=== PATIENT | male | born 1965 | race Caucasian/White ===

== ENCOUNTER 2017-07-07 18:34 | Inpatient (IN) | payer OTHER ==
[2017-07-07 18:42] VITALS: BMI 24.9
--- NOTE | 2017-07-07 19:59 | PDOC ---
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 Patient's sister states he is a mute but is able to understand when speaking to him in [place]yrgy[place]. Through his niece, patient denied headache, dizziness, lightheadedness, visual disturbance, neck pains, back pains, chest pain, shortness of breath, abdominal pains, flank pains, urinary symptoms. Patient's family states patient is a mute from 2 years ago when he had a anterior cervical discectomy fusion and plating done in the [place]. Timing/Duration: 1 week <Neva Gaxiola - Last Filed: 07/07/17 21:04> <Sha Daigle - Last Filed: 07/09/17 07:58> - General Chief Complaint: Revisit, Lab Variance Stated Complaint: PCP SENT Time Seen by Provider: 07/07/17 19:34 Past History - Past Medical History CVA: Yes (X 2 WITH RESIDUAL WEAKNESS AND APHASIA.) Diabetes: Yes Dialysis: Yes (--) HTN: Yes Hypercholesterolemia: Yes Kidney Stones: Yes - Suicide/Smoking/Psychosocial Hx Smoking History: Never smoked Hx Alcohol Use: No Drug/Substance Use Hx: No Substance Use Type: None <Neva Gaxiola - Last Filed: 07/07/17 21:04> <Sha Daigel - Last Filed: 07/09/17 07:58> - Past Medical History Allergies/Adverse Reactions: Allergies Allergy/AdvReac Type Severity Reaction Status Date / Time No Known Allergies Allergy Verified 07/07/17 18:36 Home Medications: Ambulatory Orders Amlodipine Besylate 10 PO TID 07/08/17 Atorvastatin Ca [Lipitor] 80 mg PO DAILY 07/08/17 Labetalol HCl [Normodyne -] 200 mg PO BID 07/08/17 Multivitamins 1 PO DAILY 07/08/17 Phenytoin Sodium Extended 100 mg PO TID 07/08/17 Sertraline HCl [Zoloft -] 50 mg PO DAILY 07/08/17 Review of Systems - Review of Systems Able to Perform ROS?: Yes Comments:: 07/07/17 21:05 CONSTITUTIONAL: Absent: fever, chills, diaphoresis, generalized weakness, malaise, loss of appetite HEENT: Absent: rhinorrhea, nasal congestion, throat pain, throat swelling, difficulty swallowing, mouth swelling, ear pain, eye pain, visual Changes CARDIOVASCULAR: Absent: chest pain, loss of consciousness, palpitations, irregular heart rate, peripheral edema RESPIRATORY: Absent: cough, shortness of breath, dyspnea with exertion, orthopnea, wheezing, stridor, hemoptysis GASTROINTESTINAL: Absent: abdominal pain, abdominal distension, nausea, vomiting, diarrhea, constipation, melena, hematochezia GENITOURINARY: Absent: dysuria, frequency, urgency, hesitancy, hematuria, flank pain, genital pain MUSCULOSKELETAL: Absent: myalgia, arthralgia, joint swelling SKIN: Absent: rash, itching, pallor HEMATOLOGIC/IMMUNOLOGIC: Absent: easy bleeding, easy bruising, lymphadenopathy, frequent infections ENDOCRINE: Absent: unexplained weight gain, unexplained weight loss, heat intolerance, cold intolerance NEUROLOGIC: Absent: headache, focal weakness or paresthesias, dizziness, unsteady gait, seizure, mental status changes, bladder or bowel incontinence PSYCHIATRIC: Absent: anxiety, depression, suicidal or homicidal ideation, hallucinations. Is the patient limited [place]ian proficient: No <Neva Gaxiola - Last Filed: 07/07/17 21:04> *Physical Exam - Vital Signs Last Vital Signs Temp Pulse Resp BP Pulse Ox 97.9 F 70 18 109/51 99 07/07/17 18:35 07/07/17 18:35 07/07/17 18:35 07/07/17 18:35 07/07/17 18:35 - Physical Exam Comments: 07/07/17 21:06 GENERAL: Well developed, well nourished. Awake and alert. No acute distress. HEENT: Normocephalic, atraumatic. PERRLA, EOMI. No conjunctival pallor. Sclera are non- icteric. Moist mucous membranes. Oropharynx is clear. NECK: Supple. Full ROM. No JVD. Carotid pulses 2+ and symmetric, without bruits. No thyromegaly. No lymphadenopathy. CARDIOVASCULAR: Regular rate and rhythm. No murmurs, rubs, or gallops. Distal pulses are 2+ and symmetric. PULMONARY: No evidence of respiratory distress. Lungs clear to auscultation bilaterally. No wheezing, rales or rhonchi. ABDOMINAL: Soft. Non-tender. Non-distended. No rebound or guarding. No organomegaly. Normoactive bowel sounds. MUSCULOSKELETAL Normal range of motion at all joints. No bony deformities or tenderness. No CVA tenderness. EXTREMITIES: No cyanosis. No clubbing. No edema. No calf tenderness. SKIN: Warm and dry. Normal capillary refill. No rashes. No jaundice. NEUROLOGICAL: Alert, awake, appropriate. Cranial nerves 2-12 intact. No deficits to light touch and temperature in face, upper extremities and lower extremities. No motor deficits in the in face, upper extremities and lower extremities. Normoreflexic in the upper and lower extremities. Normal speech. Toes are down- going bilaterally. Gait is normal without ataxia. PSYCHIATRIC: Cooperative. Good eye contact. Appropriate mood and affect. <Neva Gaxiola - Last Filed: 07/07/17 21:04> - Vital Signs Last Vital Signs Temp Pulse Resp BP Pulse Ox 97.4 F L 72 18 122/65 99 07/09/17 06:00 07/09/17 06:00 07/09/17 06:00 07/09/17 06:00 07/08/17 21:00 <Sha Daigle - Last Filed: 07/09/17 07:58> ED Treatment Course - LABORATORY CBC & Chemistry Diagram: 07/07/17 20:30 07/07/17 20:30 <eNva Gaixola - Last Filed: 07/07/17 21:04> - LABORATORY CBC & Chemistry Diagram: 07/07/17 20:30 07/07/17 20:30 - ADDITIONAL ORDERS Additional order review: 07/07/17 20:30 RBC 3.80 L MCV 96.8 H MCHC 32.6 RDW 17.8 H MPV 8.7 Neutrophils % 50.9 Lymphocytes % 32.2 Monocytes % 13.3 H Eosinophils % 2.4 Basophils % 1.2 <Sha Daigle - Last Filed: 07/09/17 07:58> Medical Decision Making - Medical Decision Making 07/09/17 07:58 The patient was seen and evaluated in conjunction with SARITHA Gaxiola under my direct supervision, ancillary studies were reviewed. I agree with the plan as outlined by SARITHA Gaxiola. <Sha Daigle - Last Filed: 07/09/17 07:58> *DC/Admit/Observation/Transfer - Discharge Dispostion Admit: Yes <Neva Gaxiola - Last Filed: 07/07/17 21:04> <Sha Daigle - Last Filed: 07/09/17 07:58> Diagnosis at time of Disposition: Weakness generalized, Anorexia Altered mental status, unspecified Qualifiers: Altered mental status type: unspecified Qualified Code(s): R41.82 - Altered mental status, unspecified - Discharge Dispostion Condition at time of disposition: Guarded - Referrals
[2017-07-07 20:42] LABS: BASOPHIL 1.2 % (0-2.0); EOSINOPHIL 2.4 % (0-4.5); MCH 31.6 pg (25.7-33.7); MCHC 32.6 g/dl (32.0-35.9); MEAN CELL VOLUME 96.8 fl (80-96); MEAN PLT VOLUME 8.7 fl (7.5-11.1); NEUTROPHILS 50.9 % (42.8-82.8); PLATELET COUNT 149 K/MM3 (134-434); RDW 17.8 % (11.9-15.9)
[2017-07-07 21:04] LABS: ALBUMIN 3.2 g/dl (3.4-5.0); ALK PHOS 159 U/L (45-117); ANION GAP 6 (8-16); BILIRUBIN,TOTAL 0.1 mg/dL (0.2-1.0); CO2 31 mmol/L (21-32); CREATININE 4.2 mg/dL (0.7-1.3); GLUCOSE,RANDOM 206 mg/dL (74-106); SGPT/ALT 20 U/L (12-78); TOT PROT 7.1 g/dl (6.4-8.2)
[2017-07-07 21:10] LABS: SGOT/AST 28 U/L (15-37)
[2017-07-08] MEDS ORDERED: ACETAMINOPHEN 325 MG TABLET (FP) PO PRN (00:17)
--- NOTE | 2017-07-08 09:56 | HP ---
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 Patient's sister states he is a mute but is able to understand when speaking to him in Turkish. Through his niece, patient denied headache, dizziness, lightheadedness, visual disturbance, neck pains, back pains, chest pain, shortness of breath, abdominal pains, flank pains, urinary symptoms. Patient's family states patient is a mute from 2 years ago when he had a anterior cervical discectomy fusion and plating done in the [place]. History Source: Patient, Medical Record Limitations to Obtaining History: Physical Impairment - Past Medical History RN WELLNESS: Yes: CVA, Other (APHASIA) - Smoking History Smoking history: Never smoked - Alcohol/Substance Use Hx Alcohol Use: No Home Medications - Allergies Allergies/Adverse Reactions: Allergies Allergy/AdvReac Type Severity Reaction Status Date / Time No Known Allergies Allergy Verified 07/07/17 18:36 - Home Medications Home Medications: Ambulatory Orders Amlodipine Besylate 10 PO TID 07/08/17 Atorvastatin Ca [Lipitor] 80 mg PO DAILY 07/08/17 Labetalol HCl [Normodyne -] 200 mg PO BID 07/08/17 Multivitamins 1 PO DAILY 07/08/17 Phenytoin Sodium Extended 100 mg PO TID 07/08/17 Sertraline HCl [Zoloft -] 50 mg PO DAILY 07/08/17 Review of Systems - Review of Systems Constitutional: reports: Lethargy, Loss of Appetite, Weakness Eyes: reports: No Symptoms HENT: reports: No Symptoms, Other Neck: reports: No Symptoms Cardiovascular: reports: No Symptoms Respiratory: reports: No Symptoms Gastrointestinal: reports: No Symptoms Genitourinary: reports: Other Musculoskeletal: reports: Muscle Pain, Muscle Weakness Integumentary: reports: No Symptoms Neurological: reports: Change in Speech, Confusion, Parasthesia, Pre-Existing Deficit (APHASIA) Hematology/Lymphatic: reports: No Symptoms Psychiatric: reports: No Symptoms Physical Examination Vital Signs: Vital Signs Temperature 98.2 F 07/08/17 06:00 Pulse Rate 78 07/08/17 06:00 Respiratory Rate 18 07/08/17 06:00 Blood Pressure 114/74 07/08/17 06:00 O2 Sat by Pulse Oximetry (%) 99 07/07/17 23:00 Constitutional: Yes: Moderate Distress Eyes: Yes: WNL HENT: Yes: Other Neck: Yes: WNL Cardiovascular: Yes: WNL Respiratory: Yes: WNL Gastrointestinal: Yes: WNL Renal/: Yes: Incontinence Musculoskeletal: Yes: Muscle Weakness Extremities: Yes: Other Edema: No Peripheral Pulses WNL: Yes Integumentary: Yes: WNL Wound/Incision: Yes: Clean/Dry Neurological: Yes: Aphasia, Loss of Sensation, Paresthesia, Pre-Existing Deficit , Weakness ...Motor Strength: LUE, LLE, RUE, RLE Psychiatric: Yes: Other Imaging - Results Chest X-ray: Report Reviewed Problem List - Problems (1) Altered mental status, unspecified Code(s): R41.82 - ALTERED MENTAL STATUS, UNSPECIFIED Qualifiers: Altered mental status type: unspecified Qualified Code(s): R41.82 - Altered mental status, unspecified; R41.82 - Altered mental status, unspecified (2) Anorexia Code(s): R63.0 - ANOREXIA (3) Weakness generalized Code(s): R53.1 - WEAKNESS (4) ESRD (end stage renal disease) on dialysis Code(s): N18.6 - END STAGE RENAL DISEASE Z99.2 - DEPENDENCE ON RENAL DIALYSIS Assessment/Plan ESRD ON HD RENAL EVAL PT EVAL MONITOR CALORIES TOLERATING MEALS TODAY SNF MONDAY
--- NOTE | 2017-07-08 14:36 | CON.NEP ---
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, Other (APHASIA) - Alcohol/Substance Use Hx Alcohol Use: No - Smoking History Smoking history: Never smoked Home Medications - Allergies Allergies/Adverse Reactions: Allergies Allergy/AdvReac Type Severity Reaction Status Date / Time No Known Allergies Allergy Verified 07/07/17 18:36 - Home Medications Home Medications: Ambulatory Orders Amlodipine Besylate 10 PO TID 07/08/17 Atorvastatin Ca [Lipitor] 80 mg PO DAILY 07/08/17 Labetalol HCl [Normodyne -] 200 mg PO BID 07/08/17 Multivitamins 1 PO DAILY 07/08/17 Phenytoin Sodium Extended 100 mg PO TID 07/08/17 Sertraline HCl [Zoloft -] 50 mg PO DAILY 07/08/17 Review of Systems - Review of Systems Constitutional: reports: No Symptoms Eyes: reports: No Symptoms HENT: reports: No Symptoms Neck: reports: No Symptoms Cardiovascular: reports: No Symptoms Respiratory: reports: No Symptoms Gastrointestinal: reports: No Symptoms Genitourinary: reports: No Symptoms Breasts: reports: No Symptoms Reported Musculoskeletal: reports: No Symptoms Integumentary: reports: No Symptoms Neurological: reports: Change in Speech, Incoordination, Seizure, Syncope Endocrine: reports: No Symptoms Hematology/Lymphatic: reports: No Symptoms Nephrology Consult - Height Height: 5 ft 4 in - Weight Weight: 145 lb - BMI Body Mass Index (BMI): 24.9 - Lab Results Anion Gap: Anion Gap Anion Gap 6 (8-16) L 07/07/17 20:30 - Physical Examination Vital Signs: Vital Signs Temperature 98.5 F 07/08/17 09:00 Pulse Rate 94 H 07/08/17 09:00 Respiratory Rate 18 07/08/17 09:00 Blood Pressure 133/88 07/08/17 09:00 O2 Sat by Pulse Oximetry (%) 99 07/08/17 09:00 Constitutional: Yes: Well Nourished, No Distress, Calm Eyes: Yes: WNL, Conjunctiva Clear, EOM Intact HENT: Yes: WNL, Atraumatic, Normocephalic Neck: Yes: WNL, Supple, Trachea Midline Cardiovascular: Yes: WNL, Regular Rate and Rhythm Respiratory: Yes: WNL, Regular, CTA Bilaterally Gastrointestinal: Yes: WNL, Normal Bowel Sounds Renal/: Yes: WNL Access for Hemodialysis: AV Fistula Musculoskeletal: Yes: WNL, Muscle Weakness Extremities: Yes: WNL Edema: No Peripheral Pulses WNL: Yes Integumentary: Yes: WNL Neurological: Yes: Alert, Oriented, Dysarthria, Facial Droop, Pre-Existing Deficit, Unsteady Gait, Weakness Psychiatric: Yes: WNL, Alert, Oriented Assessment/Plan ESRD on HD tiw pseudo-Hypocalcemia corrected ca 8.6 clinically euvolemic- S/P CVA- severe dysarthria no dysphagia AMS ?resolved question of Weight loss- not verified by dialysis records (his weight has been stable at 58 Kg since 05/05/17 when he started dialysis) no diarrhea/vomiting/or anorexia Plan- maintenance HD on monday No acute indication for hemodialysis
--- NOTE | 2017-07-08 19:06 | EKG ---
Test Reason : Blood Pressure : / mmHG Vent. Rate : 061 BPM Atrial Rate : 061 BPM P-R Int : 124 ms QRS Dur : 080 ms QT Int : 456 ms P-R-T Axes : 052 017 048 degrees QTc Int : 459 ms NORMAL SINUS RHYTHM NORMAL ECG NO PREVIOUS ECGS AVAILABLE REPEAT EKG IF CLINICALLY INDICATED Confirmed by ABEBE MONTANO MD ([id number]) on 07/08/2017 7:06:08 PM Referred By: Confirmed By:ABEBE MONTANO MD
[2017-07-09 08:36] LABS: MCH 31.2 pg (25.7-33.7); MCHC 32.3 g/dl (32.0-35.9); MEAN CELL VOLUME 96.6 fl (80-96); MEAN PLT VOLUME 8.9 fl (7.5-11.1); PLATELET COUNT 146 K/MM3 (134-434); RDW 17.7 % (11.9-15.9); WHITE BLOOD COUNT 5.4 K/mm3 (4.0-10.0)
[2017-07-09 09:00] LABS: ALBUMIN 3.2 g/dl (3.4-5.0); ANION GAP 9 (8-16); BILIRUBIN,TOTAL 0.2 mg/dL (0.2-1.0); CALCIUM 7.9 mg/dL (8.5-10.1); CO2 31 mmol/L (21-32); GLUCOSE,RANDOM 67 mg/dL (74-106); SGOT/AST 24 U/L (15-37); SGPT/ALT 20 U/L (12-78); TOT PROT 6.9 g/dl (6.4-8.2)
[2017-07-09 09:05] LABS: ALK PHOS 158 U/L (45-117); CREATININE 7.4 mg/dL (0.7-1.3)
--- NOTE | 2017-07-09 10:53 | PN ---
Progress Note, Physician Chief Complaint: ASLEEP COMFORTABLE SEEN BY NEPHROLOGY - Current Medication List Current Medications: Active Medications Acetaminophen (Tylenol -) 650 mg PO Q6H PRN PRN Reason: FEVER OR PAIN - Objective Vital Signs: Vital Signs Temperature 97.4 F L 07/09/17 06:00 Pulse Rate 72 07/09/17 06:00 Respiratory Rate 18 07/09/17 06:00 Blood Pressure 122/65 07/09/17 06:00 O2 Sat by Pulse Oximetry (%) 99 07/08/17 21:00 Constitutional: Yes: No Distress Eyes: Yes: WNL HENT: Yes: Other Neck: Yes: WNL Cardiovascular: Yes: WNL Respiratory: Yes: WNL Gastrointestinal: Yes: WNL Genitourinary: Yes: Other Musculoskeletal: Yes: Muscle Weakness Extremities: Yes: WNL Edema: No Peripheral Pulses WNL: Yes Integumentary: Yes: WNL Wound/Incision: Yes: Clean/Dry ...Motor Strength: WNL Psychiatric: Yes: WNL Labs: CBC, BMP 07/09/17 06:45 07/09/17 06:45 Problem List - Problems (1) Altered mental status, unspecified Code(s): R41.82 - ALTERED MENTAL STATUS, UNSPECIFIED Qualifiers: Altered mental status type: unspecified Qualified Code(s): R41.82 - Altered mental status, unspecified; R41.82 - Altered mental status, unspecified (2) Anorexia Code(s): R63.0 - ANOREXIA (3) Weakness generalized Code(s): R53.1 - WEAKNESS (4) ESRD (end stage renal disease) on dialysis Code(s): N18.6 - END STAGE RENAL DISEASE Z99.2 - DEPENDENCE ON RENAL DIALYSIS Assessment/Plan ESRD HD TOMORROW NEUROLOGY EVAL FOR C-SPINE INJURY AND APHASIA CT HEAD NOW, PT OOB TO CHAIR SNF PLACEMENT
--- NOTE | 2017-07-09 20:22 | PN ---
Progress Note (short form) - Note Progress Note: s/p cva ams esrd on hd Active Medications Acetaminophen (Tylenol -) 650 mg PO Q6H PRN PRN Reason: FEVER OR PAIN Amlodipine Besylate (Norvasc -) 10 mg PO DAILY TYREE Atorvastatin Calcium (Lipitor -) 80 mg PO DAILY TYREE Labetalol HCl (Normodyne -) 200 mg PO BID TYREE Phenytoin Sodium (Dilantin -) 100 mg PO TID TYREE Sertraline HCl (Zoloft -) 50 mg PO DAILY TYREE Last Vital Signs Temp Pulse Resp BP Pulse Ox 98.1 F 76 18 132/79 99 07/09/17 19:51 07/09/17 19:51 07/09/17 19:51 07/09/17 19:51 07/09/17 09:00 Lungs clear Heart RRR Abd soft Ext no edema CBC, BMP 07/09/17 06:45 07/09/17 06:45 IMP- ESRD on HD CVA/Aphasia Plan- HD in am
[2017-07-09] MEDS: PHENYTOIN NA EXTENDED 100 MG CAPSULE (FP) PO SCH (21:46)
[2017-07-09] MEDS: LABETALOL HCL 200 MG TABLET (FP) PO SCH (21:46)
[2017-07-09] MEDS: amLODIPine BESYLATE 10 MG TABLET (FP) PO SCH (21:50)
[2017-07-09] MEDS: ATORVASTATIN CA 80 MG TABLET (FP) PO SCH (21:50)
[2017-07-09] MEDS: SERTRALINE HCL 50 MG TABLET (FP) PO SCH (21:51)
[2017-07-10] MEDS: PHENYTOIN NA EXTENDED 100 MG CAPSULE (FP) PO SCH ×3 (05:45→21:17)
[2017-07-10 07:45] LABS: MCH 30.8 pg (25.7-33.7); MCHC 31.7 g/dl (32.0-35.9); MEAN CELL VOLUME 96.9 fl (80-96); MEAN PLT VOLUME 8.3 fl (7.5-11.1); PLATELET COUNT 146 K/MM3 (134-434); RDW 17.7 % (11.9-15.9); WHITE BLOOD COUNT 5.6 K/mm3 (4.0-10.0)
[2017-07-10 08:24] LABS: ALBUMIN 3.1 g/dl (3.4-5.0); ALK PHOS 135 U/L (45-117); ANION GAP 11 (8-16); BILIRUBIN,TOTAL 0.3 mg/dL (0.2-1.0); CALCIUM 7.8 mg/dL (8.5-10.1); CO2 27 mmol/L (21-32); GLUCOSE,RANDOM 80 mg/dL (74-106); SGOT/AST 20 U/L (15-37); SGPT/ALT 17 U/L (12-78); TOT PROT 6.3 g/dl (6.4-8.2)
[2017-07-10 09:39] LABS: CREATININE 9.3 mg/dL (0.7-1.3)
[2017-07-10] MEDS: LABETALOL HCL 200 MG TABLET (FP) PO SCH ×2 (09:44→21:17)
[2017-07-10] MEDS: ATORVASTATIN CA 80 MG TABLET (FP) PO SCH ×2 (09:44→14:41)
[2017-07-10] MEDS: amLODIPine BESYLATE 10 MG TABLET (FP) PO SCH ×2 (09:44→14:40)
[2017-07-10] MEDS: SERTRALINE HCL 50 MG TABLET (FP) PO SCH ×2 (09:45→14:40)
--- NOTE | 2017-07-10 10:16 | CONSULT ---
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 Per notes, patient's sister states he is a mute but is able to understand when speaking to him in Nepali. Patient's family states patient is a mute from 2 years ago when he had a anterior cervical discectomy fusion and plating done in the [place]. He completed CT head which showed age indeterminate infarct, MRI brain recommneded, will order. Past History - Past Medical History CVA: Yes (X 2 WITH RESIDUAL WEAKNESS AND APHASIA.) Diabetes: Yes Dialysis: Yes (-) HTN: Yes Hypercholesterolemia: Yes Kidney Stones: Yes - Suicide/Smoking/Psychosocial Hx Smoking History: Never smoked Hx Alcohol Use: No Drug/Substance Use Hx: No Substance Use Type: None - Past Medical History Allergies/Adverse Reactions: Allergies Allergy/AdvReac Type Severity Reaction Status Date / Time No Known Allergies Allergy Verified 07/07/17 18:36 Home Medications: Ambulatory Orders Amlodipine Besylate 10 PO TID 07/08/17 Atorvastatin Ca [Lipitor] 80 mg PO DAILY 07/08/17 Labetalol HCl [Normodyne -] 200 mg PO BID 07/08/17 Multivitamins 1 PO DAILY 07/08/17 Phenytoin Sodium Extended 100 mg PO TID 07/08/17 Sertraline HCl [Zoloft -] 50 mg PO DAILY 07/08/17 Review of Systems CONSTITUTIONAL: Absent: fever, chills, diaphoresis, generalized weakness, malaise, loss of appetite HEENT: Absent: rhinorrhea, nasal congestion, throat pain, throat swelling, difficulty swallowing, mouth swelling, ear pain, eye pain, visual Changes CARDIOVASCULAR: Absent: chest pain, loss of consciousness, palpitations, irregular heart rate, peripheral edema RESPIRATORY: Absent: cough, shortness of breath, dyspnea with exertion, orthopnea, wheezing, stridor, hemoptysis GASTROINTESTINAL: Absent: abdominal pain, abdominal distension, nausea, vomiting, diarrhea, constipation, melena, hematochezia GENITOURINARY: Absent: dysuria, frequency, urgency, hesitancy, hematuria, flank pain, genital pain MUSCULOSKELETAL: Absent: myalgia, arthralgia, joint swelling SKIN: Absent: rash, itching, pallor HEMATOLOGIC/IMMUNOLOGIC: Absent: easy bleeding, easy bruising, lymphadenopathy, frequent infections ENDOCRINE: Absent: unexplained weight gain, unexplained weight loss, heat intolerance, cold intolerance NEUROLOGIC: Absent: headache, focal weakness or paresthesias, dizziness, unsteady gait, seizure, mental status changes, bladder or bowel incontinence PSYCHIATRIC: Absent: anxiety, depression, suicidal or homicidal ideation, hallucinations. *Physical Exam Last Vital Signs Temp Pulse Resp BP Pulse Ox 98.2 F 72 18 105/62 99 07/10/17 08:55 07/10/17 10:00 07/10/17 10:00 07/10/17 10:00 07/09/17 21:00 GENERAL: Well developed, well nourished. Awake and alert. No acute distress. HEENT: Normocephalic, atraumatic. PERRLA, EOMI. No conjunctival pallor. Sclera are non- icteric. Moist mucous membranes. Oropharynx is clear. NECK: Supple. Full ROM. No JVD. Carotid pulses 2+ and symmetric, without bruits. No thyromegaly. No lymphadenopathy. CARDIOVASCULAR: Regular rate and rhythm. No murmurs, rubs, or gallops. Distal pulses are 2+ and symmetric. PULMONARY: No evidence of respiratory distress. Lungs clear to auscultation bilaterally. No wheezing, rales or rhonchi. ABDOMINAL: Soft. Non-tender. Non-distended. No rebound or guarding. No organomegaly. Normoactive bowel sounds. MUSCULOSKELETAL Normal range of motion at all joints. No bony deformities or tenderness. No CVA tenderness. EXTREMITIES: No cyanosis. No clubbing. No edema. No calf tenderness. SKIN: Warm and dry. Normal capillary refill. No rashes. No jaundice. NEUROLOGICAL: Alert, awake, appropriate. Grossly cranial nerves 2-12 intact, not verbal. Moves extrem grossly, not cooperative with confrontation, gait deferred CBCD WBC 5.6 K/mm3 (4.0-10.0) 07/10/17 06:45 RBC 3.95 M/mm3 (4.00-5.60) L 07/10/17 06:45 Hgb 12.2 GM/dL (11.7-16.9) 07/10/17 06:45 Hct 38.3 % (35.4-49) 07/10/17 06:45 MCV 96.9 fl (80-96) H 07/10/17 06:45 MCHC 31.7 g/dl (32.0-35.9) L 07/10/17 06:45 RDW 17.7 % (11.9-15.9) H 07/10/17 06:45 Plt Count 146 K/MM3 (134-434) 07/10/17 06:45 MPV 8.3 fl (7.5-11.1) 07/10/17 06:45 CMP Sodium 138 mmol/L (136-145) 07/10/17 06:45 Potassium 5.4 mmol/L (3.5-5.1) H 07/10/17 06:45 Chloride 100 mmol/L (98-107) 07/10/17 06:45 Carbon Dioxide 27 mmol/L (21-32) 07/10/17 06:45 Anion Gap 11 (8-16) 07/10/17 06:45 BUN 66 mg/dL (7-18) H D 07/10/17 06:45 Creatinine 9.3 mg/dL (0.7-1.3) H* D 07/10/17 06:45 Creat Clearance w eGFR 6.01 (>60) 07/10/17 06:45 Calcium 7.8 mg/dL (8.5-10.1) L 07/10/17 06:45 Total Bilirubin 0.3 mg/dL (0.2-1.0) D 07/10/17 06:45 AST 20 U/L (15-37) 07/10/17 06:45 ALT 17 U/L (12-78) 07/10/17 06:45 Alkaline Phosphatase 135 U/L (45-117) H 07/10/17 06:45 Total Protein 6.3 g/dl (6.4-8.2) L 07/10/17 06:45 Albumin 3.1 g/dl (3.4-5.0) L 07/10/17 06:45 CT head reviewed Plan: 51-year-old male with a history of ESRD, 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 Per notes, patient's sister states he is a mute but is able to understand when speaking to him in Nepali. Patient's family states patient is a mute from 2 years ago when he had a anterior cervical discectomy fusion and plating done in the [place]. He completed CT head which showed age indeterminate infarct, MRI brain recommended, will order Increased hydration and PO intake for failure to thrive HD per renal for ESRD AMS may be from any of above Continue medical optimization BP control, maintain less 140/90 Continue Amlodipine Pt/OT as tolerated
--- NOTE | 2017-07-10 11:04 | PN ---
Progress Note, Physician History of Present Illness: Pt seen and examined at bedside. He is awake and appears comfortable. He is currently on HD. - Current Medication List Current Medications: Active Medications Acetaminophen (Tylenol -) 650 mg PO Q6H PRN PRN Reason: FEVER OR PAIN Amlodipine Besylate (Norvasc -) 10 mg PO DAILY [facility] Last Admin: 07/10/17 09:44 Dose: Not Given Atorvastatin Calcium (Lipitor -) 80 mg PO DAILY [facility] Last Admin: 07/10/17 09:44 Dose: Not Given Labetalol HCl (Normodyne -) 200 mg PO BID [facility] Last Admin: 07/10/17 09:44 Dose: Not Given Phenytoin Sodium (Dilantin -) 100 mg PO TID [facility] Last Admin: 07/10/17 05:45 Dose: 100 mg Sertraline HCl (Zoloft -) 50 mg PO DAILY [facility] Last Admin: 07/10/17 09:45 Dose: Not Given - Objective Vital Signs: Vital Signs Temperature 98.2 F 07/10/17 08:55 Pulse Rate 79 07/10/17 10:30 Respiratory Rate 18 07/10/17 10:30 Blood Pressure 114/61 07/10/17 10:30 O2 Sat by Pulse Oximetry (%) 99 07/09/17 21:00 Constitutional: Yes: Calm Eyes: Yes: Conjunctiva Clear HENT: Yes: Atraumatic Cardiovascular: Yes: S1, S2 Respiratory: Yes: CTA Bilaterally Gastrointestinal: Yes: Soft Genitourinary: Yes: Incontinence Musculoskeletal: Yes: WNL Edema: No Integumentary: Yes: WNL Neurological: Yes: Pre-Existing Deficit Labs: CBC, BMP 07/10/17 06:45 07/10/17 06:45 - ....Imaging Cat Scan: Report Reviewed Problem List - Problems (1) Altered mental status, unspecified Code(s): R41.82 - ALTERED MENTAL STATUS, UNSPECIFIED Qualifiers: Altered mental status type: unspecified Qualified Code(s): R41.82 - Altered mental status, unspecified; R41.82 - Altered mental status, unspecified (2) ESRD (end stage renal disease) on dialysis Code(s): N18.6 - END STAGE RENAL DISEASE Z99.2 - DEPENDENCE ON RENAL DIALYSIS (3) Hypertension Code(s): I10 - ESSENTIAL (PRIMARY) HYPERTENSION Assessment/Plan Current Medications Generic Name Dose Route Start Last Admin Trade Name Cr PRN Reason Stop Dose Admin Acetaminophen 650 mg 07/08/17 00:17 Tylenol - PO Q6H PRN FEVER OR PAIN Amlodipine Besylate 10 mg 07/09/17 20:15 10 09:44 Norvasc - PO Not Given DAILY TYREE Atorvastatin Calcium 80 mg 07/09/17 20:15 07/10/17 09:44 Lipitor - PO Not Given DAILY TYREE Labetalol HCl 200 mg 07/09/17 22:00 07/10/17 09:44 Normodyne - PO Not Given BID TYREE Phenytoin Sodium 100 mg 07/09/17 22:00 07/10/17 05:45 Dilantin - PO 100 mg TID TYREE Administration Sertraline HCl 50 mg 07/09/17 20:15 07/10/17 09:45 Zoloft - PO Not Given DAILY TYREE Impression 1. ESRD 2. chol 3. hx CVA 4. HTN 5. altered mental status 6. failure to thrive Plan - HD today - neuro input appreciated, follow up mri brain (non contrast) - monitor bp - cont current meds - will follow - HD: 4 hr opti 180, bfr 450, dw 58 kg, 2 k , av graft, venofer 50 weekly, heparin 1000 bolus
--- NOTE | 2017-07-10 11:53 | PN ---
Progress Note, HEDIS ANALYST - Note Progress Note: Dysphagia consultation received. HEDIS ANALYST attempted to evaluate pt. Pt not in room. Sent to dialysis. HEDIS ANALYST will try again at another time.
--- NOTE | 2017-07-10 15:52 | PN ---
Progress Note, Physician Chief Complaint: AWAKE ALERT VERBALLY RESPONDED TODAY - Current Medication List Current Medications: Active Medications Acetaminophen (Tylenol -) 650 mg PO Q6H PRN PRN Reason: FEVER OR PAIN Amlodipine Besylate (Norvasc -) 10 mg PO DAILY [facility] Last Admin: 07/10/17 14:40 Dose: 10 mg Atorvastatin Calcium (Lipitor -) 80 mg PO DAILY [facility] Last Admin: 07/10/17 14:41 Dose: 80 mg Labetalol HCl (Normodyne -) 200 mg PO BID [facility] Last Admin: 07/10/17 09:44 Dose: Not Given Phenytoin Sodium (Dilantin -) 100 mg PO TID [facility] Last Admin: 07/10/17 14:40 Dose: 100 mg Sertraline HCl (Zoloft -) 50 mg PO DAILY [facility] Last Admin: 07/10/17 14:40 Dose: 50 mg - Objective Vital Signs: Vital Signs Temperature 98.7 F 07/10/17 15:41 Pulse Rate 79 07/10/17 15:41 Respiratory Rate 19 07/10/17 15:41 Blood Pressure 125/58 07/10/17 15:41 O2 Sat by Pulse Oximetry (%) 99 07/09/17 21:00 Constitutional: Yes: Mild Distress Eyes: Yes: WNL HENT: Yes: WNL Neck: Yes: WNL Cardiovascular: Yes: WNL Respiratory: Yes: WNL Gastrointestinal: Yes: WNL Genitourinary: Yes: Other Musculoskeletal: Yes: Muscle Weakness Edema: No Peripheral Pulses WNL: Yes Integumentary: Yes: WNL Wound/Incision: Yes: Clean/Dry Neurological: Yes: Pre-Existing Deficit, Unsteady Gait ...Motor Strength: LLE, RLE Psychiatric: Yes: WNL Labs: CBC, BMP 07/10/17 06:45 07/10/17 06:45 Problem List - Problems (1) Altered mental status, unspecified Code(s): R41.82 - ALTERED MENTAL STATUS, UNSPECIFIED Qualifiers: Altered mental status type: unspecified Qualified Code(s): R41.82 - Altered mental status, unspecified; R41.82 - Altered mental status, unspecified (2) Anorexia Code(s): R63.0 - ANOREXIA (3) Weakness generalized Code(s): R53.1 - WEAKNESS (4) ESRD (end stage renal disease) on dialysis Code(s): N18.6 - END STAGE RENAL DISEASE Z99.2 - DEPENDENCE ON RENAL DIALYSIS (5) CVA, old, aphasia Code(s): I69.320 - APHASIA FOLLOWING CEREBRAL INFARCTION (6) Cervical lymphadenopathy Code(s): R59.0 - LOCALIZED ENLARGED LYMPH NODES Assessment/Plan NEUROLOGY WORKUP MRI BRAIN PENDING ESRD O HD CERVICAL LYMPHADENOPATHY ENT FOLLOW UP FOR APHASIA ALSO SWALLOW EVAL OLD CVA
--- NOTE | 2017-07-10 16:55 | CONSULT ---
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 Essentially mute but can speak a few words) - Speech Production Able to Make Needs Known: Yes: Moderately Impaired Intelligibility: Yes: Severely Impaired - Speech Characteristics Voice Loudness: Severely Soft/Quiet Voice Pitch: Yes: Limited Variation Speech Pattern: Impaired Speech Clarity: < 100% Articulation: Yes: Imprecise - Language/Auditory Comprehension Follows: Yes: 1 Stage Simple Commands (in [place] only.), 2 Stage Simple Commands (in [place] only.), Complex Commands Observation: Able to respond to yes/no queries: Yes, Yes/No Confusion: No, Comprehends Conversational Speech: Yes, Benefits from Slow Speech: Yes, Benefits from Repetiton: Yes, Benefits from Increased Volume of Speech: No - Language/Verbal Expression Aphasia: Yes: Nonfluent, Apraxia Able to Respond to Simple Queries: Yes: Mildly Impaired Able to Communicate Wants and Needs: Yes: Severely Impaired Functional Communication Status: Yes: Moderately Impaired Aware of Errors: No Attempts to Correct Errors: No Use of Gestures: Yes Written Expression: Not examined. Oral Expression: chart review classified pt as mute. Reading Comprehension: Not examined. Calculations: Not examined. Attention: Yes: Intact - Swallow Evaluation/Bedside Assessment Current Nutritional Intake: Regular, Thin Liquids Oral Secretions: Yes: WFL Tracheostomy Present: No Patient on Ventilator: No Dentition: Yes: Adequate Facial Symmetry at Rest: Symmetrical Facial Symmetry on Retraction: Symmetrical Facial Movement: Controlled Sensation: Normal Facial Comment: WFL for speech and swallowing purposes. Jaw Position: Closed at Rest Against Resistance Opening: Normal Against Resistance Closing: Normal Pucker Lips: Normal Smile: Normal Lips, Comment: WFL for speech and swallowing purposes. Lingual Movement: Symmetric, Apraxic Lingual Speed of Movement: Reduced Lingual Movement Strgth Against Opposition: Normal Lingual Movement Characteristics: Spasms, Apraxic Lingual Comment: WFL for speech and swallowing purposes. Soft Palate Description: Normal Color Hard Palate Description: Normal Color Gag Reflex: Strong Bite Reflex: Present Velopharyngeal Movement: Normal Laryngeal Elevation: WFL Laryngeal Movement: Able to Palpate Needs Assistance: Yes Rate of Intake: WFL Bolus Size: WFL Sensation: Bite Reflex Labial Seal: WFL Chewing: WFL Oral Prep Time: WFL A-P Transit: WFL Timing of Swallow: WFL Odynophagia: Pharyngeal Coughing/Throat Clear: Yes (with thin liquids ) Change in Voice: (not applicable ) Other Findings/Remarks: 51 yo male seen at bedside by MOVEMAN for swallow eval with family member present for this session. Pt is non-verbal, A&Ox1, cooperative. Understands and can follow directives in [place]. PMHX includes HTN, CVAx2 hyperlipidmia, ESRD. Admitted to [facility] for AMS, generalized weakness, renal failure? and a 15 pound wt loss. 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 Vocal quality and articulation is reduced. Airway protection is also reduced. Pt given po trial trials of pureed, regular with some assistance revealed good acceptance, adequate bolus control and transport. Pharyngeal swallow appears timely with no observable s/s of aspiration-like behaviors. Pt given go trials of ice chips, thin and nectar thicken liquids with minimal assistance revealed good acceptance adequate labial containment and transport. Pharyngeal swallow appears timely with positive s/s of aspiration-like behaviors (coughing) with large volume of thin liquids. His mother reported that this is a regular occurrence at home. Recommendations - Speech Evaluation, Impression/Plan Impression: 51 yo male presents with severe aphasia with apraxia secondary to multiple CVA's. Reduced expressive language skills. Pt's receptive language skills are adequate when spoken to in [place] (primary language). Pt also presents with mild to moderate pharyngeal phase dysphagia with large volume of thin liquids. Endoscopy Registered Nurse Goals: tolerate the least restrictive diet consistency without s/s of dysphagia. Short Term Goals: tolerate regular solids and nectar thicken liquids without s/ s of aspiration. - Dysphagia Impressions/Plan Swallowing Skills: Impaired Dysphagia Impressions: Mild Impairment, Suspect Aspiration *Silent aspiration: cannot be R/O at bedside Dysphagia Treatment Plan: Small Bites, Safe Rate, 1/2 tsp. at a time, Elevate HOB during feed Dysphagia Evaluation Summary: Pt presents with mild to moderate pharyngeal phase dysphagia with thin liquids. Rx: downgrade liquids. continue regular ( renal diet ) and nectar thicken liquids as tolerated. Observe standard aspiration precautions. Results given verbally to zinc furnace charger Annie and to pcp via chart. MOVEMAN to follow up for diet tolerance and upgrade if warranted. Recommendations: Modified Barium Swallow (to determine silent aspiration risks.) , Other (consider nutrition consultation for high calorie supplements) - Recommendations Diet Consistency: Regular (follow renal diet.) Medication Administration: Whole with water Liquids: [place] Thick Supplement: Ensure Pudding (consider)
[2017-07-11] MEDS: PHENYTOIN NA EXTENDED 100 MG CAPSULE (FP) PO SCH ×3 (05:39→22:14)
--- NOTE | 2017-07-11 10:10 | PN ---
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 Per notes, patient's sister stated he is a mute but is able to understand when speaking to him in [place]. Patient's family states patient is a mute from 2 years ago when he had a anterior cervical discectomy fusion and plating done in the [place]. He completed CT head which showed age indeterminate infarct, MRI brain completed and showed subacute infarct in L periventricular white matter. Patient not on ASA or Statin. Spoke to nurse who will check with PCP to confirm okay to start these for patient. Past History - Past Medical History CVA: Yes (X 2 WITH RESIDUAL WEAKNESS AND APHASIA.) Diabetes: Yes Dialysis: Yes ([facility]-) HTN: Yes Hypercholesterolemia: Yes Kidney Stones: Yes - Suicide/Smoking/Psychosocial Hx Smoking History: Never smoked Hx Alcohol Use: No Drug/Substance Use Hx: No Substance Use Type: None - Past Medical History Allergies/Adverse Reactions: Allergies Allergy/AdvReac Type Severity Reaction Status Date / Time No Known Allergies Allergy Verified 07/07/17 18:36 Home Medications: Ambulatory Orders Amlodipine Besylate 10 PO TID 07/08/17 Atorvastatin Ca [Lipitor] 80 mg PO DAILY 07/08/17 Labetalol HCl [Normodyne -] 200 mg PO BID 07/08/17 Multivitamins 1 PO DAILY 07/08/17 Phenytoin Sodium Extended 100 mg PO TID 07/08/17 Sertraline HCl [Zoloft -] 50 mg PO DAILY 07/08/17 *Physical Exam Vital Signs Temperature 98.1 F 07/11/17 06:34 Pulse Rate 87 07/11/17 06:34 Respiratory Rate 20 07/11/17 06:34 Blood Pressure 140/82 07/11/17 06:34 O2 Sat by Pulse Oximetry (%) 99 07/10/17 21:00 GENERAL: Well developed, well nourished. Awake and alert. No acute distress. HEENT: Normocephalic, atraumatic. PERRLA, EOMI. No conjunctival pallor. Sclera are non- icteric. Moist mucous membranes. Oropharynx is clear. NECK: Supple. Full ROM. No JVD. Carotid pulses 2+ and symmetric, without bruits. No thyromegaly. No lymphadenopathy. CARDIOVASCULAR: Regular rate and rhythm. No murmurs, rubs, or gallops. Distal pulses are 2+ and symmetric. PULMONARY: No evidence of respiratory distress. Lungs clear to auscultation bilaterally. No wheezing, rales or rhonchi. ABDOMINAL: Soft. Non-tender. Non-distended. No rebound or guarding. No organomegaly. Normoactive bowel sounds. MUSCULOSKELETAL Normal range of motion at all joints. No bony deformities or tenderness. No CVA tenderness. EXTREMITIES: No cyanosis. No clubbing. No edema. No calf tenderness. SKIN: Warm and dry. Normal capillary refill. No rashes. No jaundice. NEUROLOGICAL: Alert, awake, appropriate. Grossly cranial nerves 2-12 intact, not verbal. Moves extrem grossly, not cooperative with confrontation, gait deferred CBCD WBC 5.6 K/mm3 (4.0-10.0) 07/10/17 06:45 RBC 3.95 M/mm3 (4.00-5.60) L 07/10/17 06:45 Hgb 12.2 GM/dL (11.7-16.9) 07/10/17 06:45 Hct 38.3 % (35.4-49) 07/10/17 06:45 MCV 96.9 fl (80-96) H 07/10/17 06:45 MCHC 31.7 g/dl (32.0-35.9) L 07/10/17 06:45 RDW 17.7 % (11.9-15.9) H 07/10/17 06:45 Plt Count 146 K/MM3 (134-434) 07/10/17 06:45 MPV 8.3 fl (7.5-11.1) 07/10/17 06:45 CMP Sodium 138 mmol/L (136-145) 07/10/17 06:45 Potassium 5.4 mmol/L (3.5-5.1) H 07/10/17 06:45 Chloride 100 mmol/L (98-107) 07/10/17 06:45 Carbon Dioxide 27 mmol/L (21-32) 07/10/17 06:45 Anion Gap 11 (8-16) 07/10/17 06:45 BUN 66 mg/dL (7-18) H D 07/10/17 06:45 Creatinine 9.3 mg/dL (0.7-1.3) H* D 07/10/17 06:45 Creat Clearance w eGFR 6.01 (>60) 07/10/17 06:45 Calcium 7.8 mg/dL (8.5-10.1) L 07/10/17 06:45 Total Bilirubin 0.3 mg/dL (0.2-1.0) D 07/10/17 06:45 AST 20 U/L (15-37) 07/10/17 06:45 ALT 17 U/L (12-78) 07/10/17 06:45 Alkaline Phosphatase 135 U/L (45-117) H 07/10/17 06:45 Total Protein 6.3 g/dl (6.4-8.2) L 07/10/17 06:45 Albumin 3.1 g/dl (3.4-5.0) L 07/10/17 06:45 CT head reviewed MRI brain reviewed Plan: 51-year-old male with a history of ESRD, 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 Per notes, patient's sister states he is a mute but is able to understand when speaking to him in [place]. Patient's family states patient is a mute from 2 years ago when he had a anterior cervical discectomy fusion and plating done in the [place]. He completed CT head which showed age indeterminate infarct, MRI brain reviewed Recommend starting ASA 81mg Recommend starting Lipitor 40mg Carotid Doppler and Echo ordered to complete CVA workup Increased hydration and PO intake for failure to thrive HD per renal for ESRD AMS may be from any of above Continue medical optimization BP control, maintain less 140/90 Continue Amlodipine Pt/OT as tolerated
[2017-07-11] MEDS ORDERED: PT OWN MED DRAWER 7, Y5N ONE (10:38)
[2017-07-11] MEDS: ASPIRIN 81 MG CHEWABLE TABLETS PO SCH (10:51)
[2017-07-11] MEDS: amLODIPine BESYLATE 10 MG TABLET (FP) PO SCH (10:52)
[2017-07-11] MEDS: LABETALOL HCL 200 MG TABLET (FP) PO SCH ×2 (10:52→22:14)
[2017-07-11] MEDS: SERTRALINE HCL 50 MG TABLET (FP) PO SCH (10:53)
--- NOTE | 2017-07-11 10:54 | DS ---
Physical Examination Vital Signs: Vital Signs Temperature 98.1 F 07/11/17 06:34 Pulse Rate 87 07/11/17 06:34 Respiratory Rate 20 07/11/17 06:34 Blood Pressure 140/82 07/11/17 06:34 O2 Sat by Pulse Oximetry (%) 99 07/10/17 21:00 Constitutional: Yes: No Distress Eyes: Yes: WNL HENT: Yes: WNL, Other Cardiovascular: Yes: WNL Respiratory: Yes: WNL Gastrointestinal: Yes: WNL Musculoskeletal: Yes: Muscle Weakness Extremities: Yes: WNL Edema: No Peripheral Pulses WNL: Yes Integumentary: Yes: WNL Wound/Incision: Yes: Clean/Dry Neurological: Yes: Aphasia, Confusion, Pre-Existing Deficit, Weakness ...Motor Strength: LLE, RLE Psychiatric: Yes: Other Labs: CBC, BMP 07/10/17 06:45 07/10/17 06:45 Discharge Summary Reason For Visit: LOSS OF APPETITE,WEAKNESS,ALTERED MENTAL STATUS Current Active Problems Altered mental status, unspecified (Acute) Anorexia (Acute) CVA, old, aphasia (Acute) Cervical lymphadenopathy (Acute) ESRD (end stage renal disease) on dialysis (Acute) Hypertension (Acute) Weakness generalized (Acute) Procedures: Principal: MRI BRAIN Other Procedures: CT SCAN Hospital Course: WORKED UP FOR APHASIA, OLD CVA, MUTE, ESRD ON HD, WEIGHT LOSS, FAILURE TO THRIVE , NEUROLOGY AND MEDICAL WORKUP COMPLETED WILL TRANSFER TO SNF WITH HD Condition: Guarded - Instructions Diet, Activity, Other Instructions: [facility] RENAL LOW FAT DIET Referrals: Ban Singh MD [Primary Care Provider] - Disposition: [facility] - Home Medications Comprehensive Discharge Medication List: Ambulatory Orders Amlodipine Besylate 10 PO TID 07/08/17 Atorvastatin Ca [Lipitor] 80 mg PO DAILY 07/08/17 Labetalol HCl [Normodyne -] 200 mg PO BID 07/08/17 Multivitamins 1 PO DAILY 07/08/17 Phenytoin Sodium Extended 100 mg PO TID 07/08/17 Sertraline HCl [Zoloft -] 50 mg PO DAILY 07/08/17 Acetaminophen [Tylenol .Regular Strength -] 650 mg PO Q6H PRN #0 tablet Amlodipine Besylate [Norvasc -] 10 mg PO DAILY tablet 07/11/17 Aspirin [ASA -] 81 mg PO DAILY tab.chew 07/11/17 Atorvastatin Ca [Lipitor] 40 mg PO HS tablet 07/11/17 Labetalol HCl [Normodyne -] 200 mg PO BID tablet 07/11/17 Phenytoin Na Extended [Dilantin -] 100 mg PO TID tab 07/11/17 Sertraline HCl [Zoloft -] 50 mg PO DAILY tablet 07/11/17
--- NOTE | 2017-07-11 11:40 | PN ---
Progress Note, VENEER CUTTER - Note Progress Note: Selected Entries 07/10/17 07/10/17 07/10/17 06:31 08:55 11:00 Breakfast Lunch Supper Temperature 97.6 F 98.2 F 167 F H 07/10/17 07/10/17 07/10/17 12:31 15:41 17:14 Breakfast 100% Lunch 100% Supper Temperature 98.7 F 97.9 F 07/10/17 07/11/17 19:36 06:34 Breakfast Lunch Supper 100% Temperature 98.1 F Laboratory Tests 07/10/17 06:45 WBC 5.6 Pt is on a reg diet/thin liquid. Pt reported to be coughing on thin liquid last evening. REC: MBS to r/o aspiration. [place] thick liquid until mbs orders received
--- NOTE | 2017-07-11 15:08 | PN ---
Progress Note, Physician History of Present Illness: Pt seen and examined at bedside. He is awake and appears comfortable. - Current Medication List Current Medications: Active Medications Acetaminophen (Tylenol -) 650 mg PO Q6H PRN PRN Reason: FEVER OR PAIN Amlodipine Besylate (Norvasc -) 10 mg PO DAILY [facility] Last Admin: 07/11/17 10:52 Dose: 10 mg Aspirin (Asa -) 81 mg PO DAILY [facility] Last Admin: 07/11/17 10:51 Dose: 81 mg Atorvastatin Calcium (Lipitor -) 40 mg PO HS [facility] Labetalol HCl (Normodyne -) 200 mg PO BID [facility] Last Admin: 07/11/17 10:52 Dose: 200 mg Phenytoin Sodium (Dilantin -) 100 mg PO TID [facility] Last Admin: 07/11/17 14:28 Dose: 100 mg Sertraline HCl (Zoloft -) 50 mg PO DAILY [facility] Last Admin: 07/11/17 10:53 Dose: 50 mg - Objective Vital Signs: Vital Signs Temperature 97.7 F 07/11/17 14:57 Pulse Rate 76 07/11/17 14:57 Respiratory Rate 18 07/11/17 14:57 Blood Pressure 145/61 07/11/17 14:57 O2 Sat by Pulse Oximetry (%) 99 07/10/17 21:00 Constitutional: Yes: Calm Eyes: Yes: Conjunctiva Clear Cardiovascular: Yes: S1, S2 Respiratory: Yes: CTA Bilaterally Gastrointestinal: Yes: Normal Bowel Sounds Genitourinary: Yes: WNL Musculoskeletal: Yes: Muscle Weakness Edema: No Neurological: Yes: Aphasia, Pre-Existing Deficit Labs: CBC, BMP 07/10/17 06:45 07/10/17 06:45 Problem List - Problems (1) Altered mental status, unspecified Code(s): R41.82 - ALTERED MENTAL STATUS, UNSPECIFIED Qualifiers: Altered mental status type: unspecified Qualified Code(s): R41.82 - Altered mental status, unspecified; R41.82 - Altered mental status, unspecified (2) ESRD (end stage renal disease) on dialysis Code(s): N18.6 - END STAGE RENAL DISEASE Z99.2 - DEPENDENCE ON RENAL DIALYSIS (3) Hypertension Code(s): I10 - ESSENTIAL (PRIMARY) HYPERTENSION Assessment/Plan Current Medications Generic Name Dose Route Start Last Admin Trade Name Freq PRN Reason Stop Dose Admin Acetaminophen 650 mg 07/08/17 00:17 Tylenol - PO Q6H PRN FEVER OR PAIN Amlodipine Besylate 10 mg 07/09/17 20:15 07/11/17 10:52 Norvasc - PO 10 mg DAILY TYREE Administration Aspirin 81 mg 07/11/17 10:15 07/11/17 10:51 Asa - PO 81 mg DAILY TYREE Administration Atorvastatin Calcium 40 mg 07/11/17 22:00 Lipitor - PO HS TYREE Labetalol HCl 200 mg 07/09/17 22:00 07/11/17 10:52 Normodyne - PO 200 mg BID TYREE Administration Phenytoin Sodium 100 mg 07/09/17 22:00 07/11/17 14:28 Dilantin - PO 100 mg TID TYREE Administration Sertraline HCl 50 mg 07/09/17 20:15 07/11/17 10:53 Zoloft - PO 50 mg DAILY TYREE Administration Impression 1. ESRD 2. chol 3. hx CVA 4. HTN 5. altered mental status 6. failure to thrive Plan - will arrange for HD in am - cont current meds - speech and swallow follow up - neuro follow up - will follow - HD: 4 hr opti 180, bfr 450, dw 58 kg, 2 k , av graft, venofer 50 weekly, heparin 1000 bolus
--- NOTE | 2017-07-11 18:28 | CON.ENT ---
Consult Consult Specialty:: ENT Referred by:: Dr Singh Reason for Consultation:: lymphadenopathy - History of Present Illness Chief Complaint: lymph nodes noted on CT scan. aphasic. voice change following neck surgery History of Present Illness: 51 yo M with HTN, ESRD, altered mental status, CVA with aphasia had cervical spine surgery right anterior approach, reported voice change after ~2 yrs ago) swallowing concerns, just had modified barium swallow this afternoon, trace penetration noted, labored bolus transfer from oral to pharynx - History Source History Provided By: Family Member, Medical Record Limitations to Obtaining History: Other (aphasia) - Past Medical History [employer]: Yes: CVA, Other (APHASIA) - Alcohol/Substance Use Hx Alcohol Use: No - Smoking History Smoking history: Never smoked Home Medications - Allergies Allergies/Adverse Reactions: Allergies Allergy/AdvReac Type Severity Reaction Status Date / Time No Known Allergies Allergy Verified 07/07/17 18:36 - Home Medications Home Medications: Ambulatory Orders Amlodipine Besylate 10 PO TID 07/08/17 Atorvastatin Ca [Lipitor] 80 mg PO DAILY 07/08/17 Labetalol HCl [Normodyne -] 200 mg PO BID 07/08/17 Multivitamins 1 PO DAILY 07/08/17 Phenytoin Sodium Extended 100 mg PO TID 07/08/17 Sertraline HCl [Zoloft -] 50 mg PO DAILY 07/08/17 Acetaminophen [Tylenol .Regular Strength -] 650 mg PO Q6H PRN #0 tablet Amlodipine Besylate [Norvasc -] 10 mg PO DAILY tablet 07/11/17 Aspirin [ASA -] 81 mg PO DAILY tab.chew 07/11/17 Atorvastatin Ca [Lipitor] 40 mg PO HS tablet 07/11/17 Labetalol HCl [Normodyne -] 200 mg PO BID tablet 07/11/17 Phenytoin Na Extended [Dilantin -] 100 mg PO TID tab 07/11/17 Sertraline HCl [Zoloft -] 50 mg PO DAILY tablet 07/11/17 Family Disease History - Family Disease History Family Disease History: Other: Sister (alive and well) Physical Exam-ENT Vital Signs: Vital Signs Temperature 98.4 F 07/11/17 17:00 Pulse Rate 72 07/11/17 17:00 Respiratory Rate 20 07/11/17 17:00 Blood Pressure 93/72 07/11/17 17:00 O2 Sat by Pulse Oximetry (%) 99 07/10/17 21:00 Constitutional: Yes: No Distress, Anxious Head: Yes: WNL Face: Yes: WNL Eyes: Yes: WNL Nose: Yes: Septum Deviated Oral/Pharynx: Yes: Gag Reflex, Other (does not clear all food from mouth, oropharynx clear, flexible laryngoscopy attempted but patient unable to cooperate for examination, grabbed at scope and shook head.) Outer Ear: Yes: WNL Neck: Yes: Other (scars, no discrete mass or nodes palpable, salivary glands WNL ) Respiratory: Yes: WNL Imaging - Results Cat Scan: Report Reviewed, Image Reviewed (CT cervical spine +right supraclavicular nodes, central compartment node adjacent ot left thyroid lobe also superior mediastinal nodes) Problem List - Problems (1) CVA, old, aphasia Assessment/Plan: pt has aphasia s/p CVA additional voice change reported after cervical spine surgery anterior approach not clear if there is a right laryngeal paresis or paralysis (most likely reason postop for voice change) pt unable to cooperate for flexible laryngoscopy to assess laryngeal mobility for swallowing modified barium swallow showed no aspiration pt did demonstrate some choking on thin liquids during exam. Recommend: continue dysphagia precautions and diet as per Alexa Rangels may reattempt flexible laryngoscopy on a different day if pt able to cooperate. Thank you for consultation, Anthony Montes MD FACS Code(s): I69.320 - APHASIA FOLLOWING CEREBRAL INFARCTION (2) Cervical lymphadenopathy Assessment/Plan: adenopathy noted on CT cervical spine: right supraclavicular, central compartment and superior mediastinum etiology not clear Recommend: consider dedicated CT of neck and chest (probably cannot use contrast because of ESRD) consider biopsy of accessible nodes (either FNA right supraclavidular under US guidance) consider thoracic consultation because of mediastinal involvement Code(s): R59.0 - LOCALIZED ENLARGED LYMPH NODES
[2017-07-11] MEDS ORDERED: ATORVASTATIN CA 40 MG TABLET (FP) PO SCH ×2 (22:00)
[2017-07-12 00:06] LABS: HEP B SURFACE AB Reactive (.)
[2017-07-12] MEDS: PHENYTOIN NA EXTENDED 100 MG CAPSULE (FP) PO SCH ×2 (06:45→13:55)
[2017-07-12] MEDS ORDERED: HEPARIN NA (PORCINE) 5,000 UNITS/ML 1ML VIAL IVPUSH ONE (10:00)
[2017-07-12 10:03] LABS: MCH 31.3 pg (25.7-33.7); MCHC 32.2 g/dl (32.0-35.9); MEAN CELL VOLUME 97.1 fl (80-96); MEAN PLT VOLUME 8.8 fl (7.5-11.1); PLATELET COUNT 130 K/MM3 (134-434); RDW 17.9 % (11.9-15.9); WHITE BLOOD COUNT 5.8 K/mm3 (4.0-10.0)
--- NOTE | 2017-07-12 10:03 | PN ---
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 Per notes, patient's sister stated he is a mute but is able to understand when speaking to him in Lithuanian. Patient's family states patient is a mute from 2 years ago when he had a anterior cervical discectomy fusion and plating done in the [place]. He completed CT head which showed age indeterminate infarct, MRI brain completed and showed subacute infarct in L periventricular white matter. Patient not on ASA or Statin and therefore were started. Neurologically stable at this time, ENT consult reviewed. Active Medications Acetaminophen (Tylenol -) 650 mg PO Q6H PRN PRN Reason: FEVER OR PAIN Amlodipine Besylate (Norvasc -) 10 mg PO DAILY [facility] Last Admin: 07/11/17 10:52 Dose: 10 mg Aspirin (Asa -) 81 mg PO DAILY [facility] Last Admin: 07/11/17 10:51 Dose: 81 mg Atorvastatin Calcium (Lipitor -) 40 mg PO HS [facility] Last Admin: 07/11/17 22:14 Dose: 40 mg Labetalol HCl (Normodyne -) 200 mg PO BID [facility] Last Admin: 07/11/17 22:14 Dose: 200 mg Phenytoin Sodium (Dilantin -) 100 mg PO TID [facility] Last Admin: 07/12/17 06:45 Dose: 100 mg Sertraline HCl (Zoloft -) 50 mg PO DAILY [facility] Last Admin: 07/11/17 10:53 Dose: 50 mg *Physical Exam Vital Signs Period Temp Pulse Resp BP Sys/Hu Pulse Ox Last 24 Hr 97.7 F-98.4 F 72-95 18-20 93-145/61-74 98 GENERAL: Well developed, well nourished. Awake and alert. No acute distress. HEENT: Normocephalic, atraumatic. PERRLA, EOMI. No conjunctival pallor. Sclera are non- icteric. Moist mucous membranes. Oropharynx is clear. NECK: Supple. Full ROM. No JVD. Carotid pulses 2+ and symmetric, without bruits. No thyromegaly. No lymphadenopathy. CARDIOVASCULAR: Regular rate and rhythm. No murmurs, rubs, or gallops. Distal pulses are 2+ and symmetric. PULMONARY: No evidence of respiratory distress. Lungs clear to auscultation bilaterally. No wheezing, rales or rhonchi. ABDOMINAL: Soft. Non-tender. Non-distended. No rebound or guarding. No organomegaly. Normoactive bowel sounds. MUSCULOSKELETAL Normal range of motion at all joints. No bony deformities or tenderness. No CVA tenderness. EXTREMITIES: No cyanosis. No clubbing. No edema. No calf tenderness. SKIN: Warm and dry. Normal capillary refill. No rashes. No jaundice. NEUROLOGICAL: Alert, awake, appropriate. Grossly cranial nerves 2-12 intact, not verbal. Moves extrem grossly, not cooperative with confrontation, gait deferred CBCD WBC 5.6 K/mm3 (4.0-10.0) 07/10/17 06:45 RBC 3.95 M/mm3 (4.00-5.60) L 07/10/17 06:45 Hgb 12.2 GM/dL (11.7-16.9) 07/10/17 06:45 Hct 38.3 % (35.4-49) 07/10/17 06:45 MCV 96.9 fl (80-96) H 07/10/17 06:45 MCHC 31.7 g/dl (32.0-35.9) L 07/10/17 06:45 RDW 17.7 % (11.9-15.9) H 07/10/17 06:45 Plt Count 146 K/MM3 (134-434) 07/10/17 06:45 MPV 8.3 fl (7.5-11.1) 07/10/17 06:45 CMP Sodium 138 mmol/L (136-145) 07/10/17 06:45 Potassium 5.4 mmol/L (3.5-5.1) H 07/10/17 06:45 Chloride 100 mmol/L (98-107) 07/10/17 06:45 Carbon Dioxide 27 mmol/L (21-32) 07/10/17 06:45 Anion Gap 11 (8-16) 07/10/17 06:45 BUN 66 mg/dL (7-18) H D 07/10/17 06:45 Creatinine 9.3 mg/dL (0.7-1.3) H* D 07/10/17 06:45 Creat Clearance w eGFR 6.01 (>60) 07/10/17 06:45 Calcium 7.8 mg/dL (8.5-10.1) L 07/10/17 06:45 Total Bilirubin 0.3 mg/dL (0.2-1.0) D 07/10/17 06:45 AST 20 U/L (15-37) 07/10/17 06:45 ALT 17 U/L (12-78) 07/10/17 06:45 Alkaline Phosphatase 135 U/L (45-117) H 07/10/17 06:45 Total Protein 6.3 g/dl (6.4-8.2) L 07/10/17 06:45 Albumin 3.1 g/dl (3.4-5.0) L 07/10/17 06:45 CT head reviewed MRI brain reviewed Plan: 51-year-old male with a history of ESRD, 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 Per notes, patient's sister states he is a mute but is able to understand when speaking to him in [place]ian. Patient's family states patient is a mute from 2 years ago when he had a anterior cervical discectomy fusion and plating done in the [place]. He completed CT head which showed age indeterminate infarct, MRI brain reviewed Recommend starting ASA 81mg, ordered Recommend starting Lipitor 40mg, ordered Carotid Doppler and Echo ordered to complete CVA workup Increased hydration and PO intake for failure to thrive ENT consult noted HD per renal for ESRD AMS may be from any of above Continue medical optimization BP control, maintain less 140/90 Continue Amlodipine and Labetolol Pt/OT as tolerated
[2017-07-12 10:35] LABS: ANION GAP 12 (8-16); CALCIUM 7.5 mg/dL (8.5-10.1); CO2 26 mmol/L (21-32); GLUCOSE,RANDOM 246 mg/dL (74-106)
[2017-07-12 11:12] LABS: CREATININE 8.3 mg/dL (0.7-1.3)
--- NOTE | 2017-07-12 13:32 | PN ---
Progress Note, Physician History of Present Illness: Pt seen and examined at bedside. He is tolerating dialysis. - Current Medication List Current Medications: Active Medications Acetaminophen (Tylenol -) 650 mg PO Q6H PRN PRN Reason: FEVER OR PAIN Amlodipine Besylate (Norvasc -) 10 mg PO DAILY [facility] Last Admin: 07/11/17 10:52 Dose: 10 mg Aspirin (Asa -) 81 mg PO DAILY [facility] Last Admin: 07/11/17 10:51 Dose: 81 mg Atorvastatin Calcium (Lipitor -) 40 mg PO HS [facility] Last Admin: 07/11/17 22:14 Dose: 40 mg Labetalol HCl (Normodyne -) 200 mg PO BID [facility] Last Admin: 07/11/17 22:14 Dose: 200 mg Phenytoin Sodium (Dilantin -) 100 mg PO TID [facility] Last Admin: 07/12/17 06:45 Dose: 100 mg Sertraline HCl (Zoloft -) 50 mg PO DAILY [facility] Last Admin: 07/11/17 10:53 Dose: 50 mg - Objective Vital Signs: Vital Signs Temperature 98.1 F 07/12/17 06:08 Pulse Rate 61 07/12/17 12:20 Respiratory Rate 18 07/12/17 12:20 Blood Pressure 125/59 07/12/17 12:20 O2 Sat by Pulse Oximetry (%) 98 07/11/17 21:00 Constitutional: Yes: Calm Eyes: Yes: Conjunctiva Clear Cardiovascular: Yes: S1, S2 Respiratory: Yes: CTA Bilaterally Gastrointestinal: Yes: Normal Bowel Sounds, Soft Musculoskeletal: Yes: Muscle Weakness Edema: No Neurological: Yes: Aphasia Psychiatric: Yes: Other (calm) Labs: CBC, BMP 07/12/17 09:30 07/12/17 09:30 Problem List - Problems (1) Altered mental status, unspecified Code(s): R41.82 - ALTERED MENTAL STATUS, UNSPECIFIED Qualifiers: Altered mental status type: unspecified Qualified Code(s): R41.82 - Altered mental status, unspecified; R41.82 - Altered mental status, unspecified (2) ESRD (end stage renal disease) on dialysis Code(s): N18.6 - END STAGE RENAL DISEASE Z99.2 - DEPENDENCE ON RENAL DIALYSIS (3) Hypertension Code(s): I10 - ESSENTIAL (PRIMARY) HYPERTENSION Assessment/Plan Current Medications Generic Name Dose Route Start Last Admin Trade Name Freq PRN Reason Stop Dose Admin Acetaminophen 650 mg 07/08/17 00:17 Tylenol - PO Q6H PRN FEVER OR PAIN Amlodipine Besylate 10 mg 07/09/17 20:15 07/11/17 10:52 Norvasc - PO 10 mg DAILY [facility] Administration Aspirin 81 mg 07/11/17 10:15 07/11/17 10:51 Asa - PO 81 mg DAILY [facility] Administration Atorvastatin Calcium 40 mg 07/11/17 22:00 07/11/17 22:14 Lipitor - PO 40 mg HS [facility] Administration Labetalol HCl 200 mg 07/09/17 22:00 07/11/17 22:14 Normodyne - PO 200 mg BID [facility] Administration Phenytoin Sodium 100 mg 07/09/17 22:00 07/12/17 06:45 Dilantin - PO 100 mg TID [facility] Administration Sertraline HCl 50 mg 07/09/17 20:15 07/11/17 10:53 Zoloft - PO 50 mg DAILY [facility] Administration Impression 1. ESRD 2. chol 3. hx CVA 4. HTN 5. altered mental status 6. failure to thrive Plan - pt tolerating HD - neuro input appreciated - monitor bp - pt/rehab - will follow - HD: 4 hr opti 180, bfr 450, dw 58 kg, 2 k , av graft, venofer 50 weekly, heparin 1000 bolus
[2017-07-12] MEDS: LABETALOL HCL 200 MG TABLET (FP) PO SCH (13:55)
[2017-07-12] MEDS: amLODIPine BESYLATE 10 MG TABLET (FP) PO SCH (13:55)
[2017-07-12] MEDS: ASPIRIN 81 MG CHEWABLE TABLETS PO SCH (13:55)
[2017-07-12] MEDS: SERTRALINE HCL 50 MG TABLET (FP) PO SCH (13:55)
[2017-07-12] MEDS: ATORVASTATIN CA 80 MG TABLET (FP) PO SCH (13:56)
[2017-07-12 14:24] LABS: CREATININE 2.5 mg/dL (0.7-1.3)
--- NOTE | 2017-07-12 14:33 | PN ---
Progress Note, CORRECTION OFFICER - Note Progress Note: MBS reviewed with staff. Intermittent cough response with thin liquid. ENT consult appreciated. Selected Entries 07/11/17 07/11/17 07/11/17 06:34 09:35 14:57 Supper Temperature 98.1 F 98.2 F 97.7 F 07/11/17 07/11/17 07/11/17 17:00 18:40 22:21 Supper 75% Temperature 98.4 F 98.1 F 07/12/17 07/12/17 06:08 10:00 Supper 100% Temperature 98.1 F Laboratory Tests 07/12/17 09:30 WBC 5.8 Suggest downgrade to nectar thick liquid. Follow up by speech pathology upon d/ c at [facility].
[2017-07-12 16:08] VITALS: BP 140/88; PULSE 69; TEMP 97.8
== END 2017-07-12 15:37 | DRG 45 ==
LOC: SUPCPDRO 18:34 → JER 18:34 → JERBED 20:46 → J8W 22:12
PROVIDERS: ADMIT Family Medicine; ATTEND Family Medicine
PROC: 5A1D90Z Performance of Urinary Filtration, Continuous, Greater than 18 hours Per Day (ICD-10-PCS; principal; 2017-07-12)
DX: I63.9 Cerebral infarction, unspecified (principal); R62.7 Adult failure to thrive; I69.320 Aphasia following cerebral infarction; R53.1 Weakness; Z99.2 Dependence on renal dialysis; R59.0 Localized enlarged lymph nodes; R41.82 Altered mental status, unspecified; I12.0 Hypertensive chronic kidney disease with stage 5 chronic kidney disease or end stage renal disease; N18.6 End stage renal disease; E78.5 Hyperlipidemia, unspecified; R63.0 Anorexia; Z68.24 Body mass index [BMI] 24.0-24.9, adult; E83.51 Hypocalcemia
CPT/HCPCS: 36415; 70450-TC; 70551-TC; 71020-TC; 72125-TC; 74230-TC; 80048; 80053; 82565; 84520; 85025; 85027; 86704; 86706; 86708; 86803; 87340; 92611-GN; 93005; 93010; 93306-TC; 97161-GP; 99281-25; J1644

== ENCOUNTER 2017-08-30 18:32 | Inpatient (IN) | payer OTHER ==
[2017-08-30 19:05] VITALS: BMI 20.9
--- NOTE | 2017-08-30 20:07 | PDOC ---
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 As per patient's patient was behaving normally Monday in Care Home, after getting Dialyzed. She reports patient appeared depressed when seen Monday. Patient reports patient attempted to be dialyzed Monday, but there was a problem accessing patients fistula, and therefore was not completely dialyzed. She reports patient was taken to Vascular surgeon at [facility] for fistula correction. Patients reports patient did not receive any continued dialysis Monday night or Monday. She reports dialysis was attempted today but again problems occurred completing it. Patients states upon patients return to [place], family noticed patients responses were not normal. She reports patient appeared to be drooling but did not complain of any pain. Patient currently has no complaints at this time. History was given by Patient's and daughter. Denies chest pain, SOB. Denies fever, chills. Denies nausea, vomiting. Denies contact with sick individuals. Denies dysuria, constipation, diarrhea. Denies any other symptoms. Allergies: None Social history: Lives in [facility]. No smoking. No alcohol. No illicit drugs. Surgical history: None PMD: Dr. Singh <Daniele Anne - Last Filed: 08/30/17 22:49> - General History Source: Spouse <Umang Montaño - Last Filed: 08/31/17 00:40> - General Chief Complaint: Loss of Appetite Stated Complaint: WEAKNESS Time Seen by Provider: 08/30/17 19:53 NIH Stroke Scale - Last Known Well Date/Time & Onset Date Last Known Well: 08/28/17 Time Last Known Well: 07:00 - Initial Evaluation Level of consciousness: Alert Ask patient the month and their age: Answers one correctly Ask patient to open & close eyes; make fist and let go: Obeys both correctly Best gaze (horizontal eye movement): Normal Visual field testing: No visual field loss Facial paresis (Show teeth/raise eyebrows/close eyes tight): Normal symmetrical movement Motor Function: Left Arm: Drift Motor Function: Right Arm: Normal (extends arm 90 (or 45) degrees for 10 seconds without drift Motor Function: Left Leg: Drift Motor Function: Right Leg: Normal (extends leg 30 degrees for 5 seconds without drift) Limb Ataxia: No ataxia Sensory(Use pinprick test arms,legs,trunk,face/side to side): Normal Best language (Describe picture, name items, read sentences): Mild to moderate aphasia Dysarthria (read several words): Mild to moderate slurring of words Extinction and Inattention: No abnormality - Total Score NIH Stroke Scale Score: 5 <Umang Montaño - Last Filed: 08/31/17 00:40> tPA Exclusion checklist 3-4.5h - Time Elapsed Date last known well: 08/28/17 Time last known well: 07:00 Elaspsed time: 2 Day(s) and 17 Hour(s) and 40 Minutes - Thrombolytic Therapy Candidate Is patient eligible for thrombolytic therapy: No - Exclusion Criteria 3-4.5 hr SBP greater than 185 or DBP greater than 110mmHg despite tx: Yes Recent IC/spinal surgery,head trauma or stroke<3mos.: No Hx IC hemorrhage, IC neoplasm, AV malformation or aneurysm: No Active internal bleeding: No Blding diathesis(low plt ct, inc PTT,INR>1.7 or use of NOAC): No Symptoms suggest subarachnoid hemorrhage: No CT demonstrates multilobar infarct(>1/3 cerebral hemiphere): No Arterial puncture at noncompressible site in previous 7 days: No Blood glucose concentration less than 50mg/dL (2.7mmol/L): No - Relative Exclusion Criteria 3-4.5 hr Life expectancy <1 yr or severe co-morbid illness: No : No Patient/family refused: No Rapid improvement: No Stroke severity too mild: No Recent acute AK (w/in previous 3 months): No Seizure at onset with postictal residual neuro impairments: No Major surgery or serious trauma w/in previous 14 days: No Recent GI or hemorrhage (w/in previous 21 days): No - Add'l Relative Exclusion 3-4.5 hr Age > 80: No Hx of both diabetes AND prior ischemic stroke: No Taking an oral anticoagulant regardless of INR: No NIHSS >25: No - Ineligibility reason(s) Reasons No tPA given: Outside of window - delayed arrival (change in mental started Monday. ) <PuneetUmang lux - Last Filed: 08/31/17 00:40> Past History <Daniele Anne - Last Filed: 08/30/17 22:49> - Past Medical History CVA: Yes (X 2 WITH RESIDUAL WEAKNESS AND APHASIA.) COPD: No Diabetes: Yes Dialysis: Yes ([facility]-) HTN: Yes Hypercholesterolemia: Yes Kidney Stones: Yes - Suicide/Smoking/Psychosocial Hx Smoking History: Unknown if ever smoked Have you smoked in the past 12 months: No Information on smoking cessation initiated: No Hx Alcohol Use: No Drug/Substance Use Hx: No Substance Use Type: None <Umang Montaño - Last Filed: 08/31/17 00:40> - Past Medical History Allergies/Adverse Reactions: Allergies Allergy/AdvReac Type Severity Reaction Status Date / Time No Known Allergies Allergy Verified 07/07/17 18:36 Home Medications: Ambulatory Orders Amlodipine Besylate 10 PO TID 07/08/17 Atorvastatin Ca [Lipitor] 80 mg PO DAILY 07/08/17 Labetalol HCl [Normodyne -] 200 mg PO BID 07/08/17 Multivitamins 1 PO DAILY 07/08/17 Phenytoin Sodium Extended 100 mg PO TID 07/08/17 Sertraline HCl [Zoloft -] 50 mg PO DAILY 07/08/17 Acetaminophen [Tylenol .Regular Strength -] 650 mg PO Q6H PRN #0 tablet Amlodipine Besylate [Norvasc -] 10 mg PO DAILY tablet 07/11/17 Aspirin [ASA -] 81 mg PO DAILY tab.chew 07/11/17 Atorvastatin Ca [Lipitor] 40 mg PO HS tablet 07/11/17 Labetalol HCl [Normodyne -] 200 mg PO BID tablet 07/11/17 Phenytoin Na Extended [Dilantin -] 100 mg PO TID tab 07/11/17 Sertraline HCl [Zoloft -] 50 mg PO DAILY tablet 07/11/17 Review of Systems - Review of Systems Able to Perform ROS?: Yes Comments:: 08/30/17 21:07 CONSTITUTIONAL: +Generalized weakness (As per family). +Change in mental status (As per family) Absent: fever, chills, diaphoresis, malaise, loss of appetite HEENT: Absent: rhinorrhea, nasal congestion, throat pain, throat swelling, difficulty swallowing, mouth swelling, ear pain, eye pain, visual Changes CARDIOVASCULAR: +Diminished chest pain. Absent: syncope, palpitations, irregular heart rate, lightheadedness, peripheral edema RESPIRATORY: Absent: cough, shortness of breath, dyspnea with exertion, orthopnea, wheezing, stridor, hemoptysis GASTROINTESTINAL: +Nausea. +Vomiting x1. Absent: abdominal pain, abdominal distension, nausea, vomiting, diarrhea, constipation, melena, hematochezia GENITOURINARY: Absent: dysuria, frequency, urgency, hesitancy, hematuria, flank pain, genital pain MUSCULOSKELETAL: Absent: myalgia, arthralgia, joint swelling SKIN: Absent: rash, itching, pallor HEMATOLOGIC/IMMUNOLOGIC: Absent: easy bleeding, easy bruising, lymphadenopathy, frequent infections ENDOCRINE: Absent: unexplained weight gain, unexplained weight loss, heat intolerance, cold intolerance NEUROLOGIC: Absent: headache, focal weakness or paresthesias, dizziness, unsteady gait, seizure, mental status changes, bladder or bowel incontinence PSYCHIATRIC: Absent: anxiety, depression, suicidal or homicidal ideation, hallucinations. All Other Systems: Reviewed and Negative <Daniele Anne - Last Filed: 08/30/17 22:49> *Physical Exam - Vital Signs Last Vital Signs Temp Pulse Resp BP Pulse Ox 98.8 F 83 18 183/67 96 08/30/17 19:00 08/30/17 19:00 08/30/17 19:00 08/30/17 19:00 08/30/17 19:00 - Physical Exam Comments: 08/30/17 21:10 GENERAL: +Answers slowly but appropriately Well developed, well nourished. Awake and alert. In no acute distress. HEENT: Normocephalic, atraumatic. PERRLA, EOMI. No conjunctival pallor. Sclerae are non -icteric. Moist mucous membranes. Oropharynx is clear. NECK: Supple. Full ROM. No JVD. Carotid pulses 2+ and symmetric, without bruits. No thyromegaly. No lymphadenopathy. CARDIOVASCULAR: +Tachycardic Regular rhythm. No murmurs, rubs, or gallops. Distal pulses are 2+ and symmetric. PULMONARY: +Decreased breath sounds. No evidence of respiratory distress. Lungs clear to auscultation bilaterally. No wheezing, rales or rhonchi. ABDOMINAL: Soft. Non-tender. Non-distended. No rebound or guarding. No organomegaly. Normoactive bowel sounds. MUSCULOSKELETAL Normal range of motion at all joints. No bony deformities or tenderness. No CVA tenderness. 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 + Thrill upper extremities. +Bruit upper extremities. +Right upper extremity 5/5 muscle strength. +Right lower extremity 5/5. +Left lower extremitiy 4./5 strength. +Upper left extremity 4./5. No cyanosis. No clubbing. No edema. No calf tenderness. SKIN: Warm and dry. Normal capillary refill. No rashes. No jaundice. NEUROLOGICAL: Alert, awake, appropriate. Cranial nerves 2-12 intact. No deficits to light touch and temperature in face, upper extremities and lower extremities. No motor deficits in the in face, upper extremities and lower extremities. Normoreflexic in the upper and lower extremities. Normal speech. Toes are downgoing bilaterally. PSYCHIATRIC: Cooperative. Good eye contact. Appropriate mood and affect. <Daniele Anne - Last Filed: 08/30/17 22:49> - Vital Signs Last Vital Signs Temp Pulse Resp BP Pulse Ox 98.8 F 83 18 183/67 96 08/30/17 19:00 08/30/17 19:00 08/30/17 19:00 08/30/17 19:00 08/30/17 19:00 <Umang Montaño - Last Filed: 08/31/17 00:40> Heart Score/ECG Review - ECG Intrepretation Comment:: 08/30/17 22:34 ECG Interpretation: Normal Sinus Rhythm Normal ECG. <Daniele Anne - Last Filed: 08/30/17 22:49> ED Treatment Course - LABORATORY CBC & Chemistry Diagram: 08/30/17 21:40 08/30/17 21:40 <Daniele Anne - Last Filed: 08/30/17 22:49> - LABORATORY CBC & Chemistry Diagram: 08/30/17 21:40 08/30/17 21:40 <Umang Montaño - Last Filed: 08/31/17 00:40> Medical Decision Making - Medical Decision Making 08/30/17 22:[address] Singh @22:45pm. Awaiting callback. <Daniele Anne - Last Filed: 08/30/17 22:49> *DC/Admit/Observation/Transfer - Attestations Scribe Attestion: 08/30/17 21:11 Documentation prepared by Daniele Anne, acting as pediatrician/medical doctor for Umang Montaño MD/DO. <Daniele Anne - Last Filed: 08/30/17 22:49> - Discharge Dispostion Admit: Yes <Umang Montaño - Last Filed: 08/31/17 00:40> Diagnosis at time of Disposition: ESRD (end stage renal disease) on dialysis Altered mental status, unspecified Qualifiers: Altered mental status type: unspecified Qualified Code(s): R41.82 - Altered mental status, unspecified - Discharge Dispostion Condition at time of disposition: Stable - Referrals Referrals: Ban Singh MD [Primary Care Provider] - - Patient Instructions - Post Discharge Activity
[2017-08-30 21:53] LABS: BASOPHIL 1.2 % (0-2.0); EOSINOPHIL 1.7 % (0-4.5); MCH 33.3 pg (25.7-33.7); MCHC 33.7 g/dl (32.0-35.9); MEAN CELL VOLUME 98.7 fl (80-96); MEAN PLT VOLUME 7.9 fl (7.5-11.1); NEUTROPHILS 63.9 % (42.8-82.8); PLATELET COUNT 169 K/MM3 (134-434); RDW 16.5 % (11.9-15.9); WHITE BLOOD COUNT 7.6 K/mm3 (4.0-10.0)
[2017-08-30 22:13] LABS: INR 1.13 (0.82-1.09); PROTHROMBIN TIME (PATIENT) 12.8 SEC (9.98-11.88)
[2017-08-30 22:21] LABS: ALBUMIN 3.4 g/dl (3.4-5.0); ANION GAP 9 (8-16); BILIRUBIN,TOTAL 0.4 mg/dL (0.2-1.0); CALCIUM 7.9 mg/dL (8.5-10.1); CO2 27 mmol/L (21-32); GLUCOSE,RANDOM 97 mg/dL (74-106); SGPT/ALT 19 U/L (12-78); TOT PROT 7.2 g/dl (6.4-8.2)
[2017-08-30 22:27] LABS: ALK PHOS 190 U/L (45-117); CPK 131 IU/L (39-308); TROPONIN I 0.03 ng/ml (0.00-0.05)
[2017-08-30 22:39] LABS: SGOT/AST 20 U/L (15-37)
[2017-08-30 22:40] LABS: CREATININE 8.8 mg/dL (0.7-1.3)
[2017-08-31] MEDS ORDERED: ACETAMINOPHEN 325 MG TABLET (FP) PO PRN (02:54)
[2017-08-31] MEDS: PHENYTOIN NA EXTENDED 100 MG CAPSULE (FP) PO SCH ×2 (06:19→14:22)
--- NOTE | 2017-08-31 10:18 | CONSULT ---
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 As per patient's patient was behaving normally Monday afternoon in [place], after getting Dialyzed. She reports patient appeared depressed when seen Monday. Patient reports patient attempted to be dialyzed Monday, but there was a problem accessing patients fistula, and therefore was not completely dialyzed and likely cause for his alerted mental status. She reports patient was taken to Vascular surgeon at [facility] for fistula correction. Patients reports patient did not receive any continued dialysis Monday night or Monday. Patient's reported upon patients return to [place], family noticed patients responses were not normal. She reported patient appeared to be drooling but did not complain of any pain. In the ER, he's somnolent but arousable. Following some basic commands but not fully participating. CT head completed and did not show acute changes. Spoke with about having MRI brain and she was in agreement. Past History - Past Medical History CVA: Yes (X 2 WITH RESIDUAL WEAKNESS AND APHASIA.) COPD: No Diabetes: Yes Dialysis: Yes () HTN: Yes Hypercholesterolemia: Yes Kidney Stones: Yes - Suicide/Smoking/Psychosocial Hx Smoking History: Unknown if ever smoked Have you smoked in the past 12 months: No Information on smoking cessation initiated: No Hx Alcohol Use: No Drug/Substance Use Hx: No Substance Use Type: None - Past Medical History Allergies/Adverse Reactions: Allergies Allergy/AdvReac Type Severity Reaction Status Date / Time No Known Allergies Allergy Verified 07/07/17 18:36 Home Medications: Ambulatory Orders Amlodipine Besylate 10 PO TID 07/08/17 Atorvastatin Ca [Lipitor] 80 mg PO DAILY 07/08/17 Labetalol HCl [Normodyne -] 200 mg PO BID 07/08/17 Multivitamins 1 PO DAILY 07/08/17 Phenytoin Sodium Extended 100 mg PO TID 07/08/17 Sertraline HCl [Zoloft -] 50 mg PO DAILY 07/08/17 Acetaminophen [Tylenol .Regular Strength -] 650 mg PO Q6H PRN #0 tablet Amlodipine Besylate [Norvasc -] 10 mg PO DAILY tablet 07/11/17 Aspirin [ASA -] 81 mg PO DAILY tab.chew 07/11/17 Atorvastatin Ca [Lipitor] 40 mg PO HS tablet 07/11/17 Labetalol HCl [Normodyne -] 200 mg PO BID tablet 07/11/17 Phenytoin Na Extended [Dilantin -] 100 mg PO TID tab 07/11/17 Sertraline HCl [Zoloft -] 50 mg PO DAILY tablet 07/11/17 Review of Systems CONSTITUTIONAL: +Generalized weakness (As per family). +Change in mental status (As per family) Absent: fever, chills, diaphoresis, malaise, loss of appetite HEENT: Absent: rhinorrhea, nasal congestion, throat pain, throat swelling, difficulty swallowing, mouth swelling, ear pain, eye pain, visual Changes CARDIOVASCULAR: +Diminished chest pain. Absent: syncope, palpitations, irregular heart rate, lightheadedness, peripheral edema RESPIRATORY: Absent: cough, shortness of breath, dyspnea with exertion, orthopnea, wheezing, stridor, hemoptysis GASTROINTESTINAL: +Nausea. +Vomiting x1. Absent: abdominal pain, abdominal distension, nausea, vomiting, diarrhea, constipation, melena, hematochezia GENITOURINARY: Absent: dysuria, frequency, urgency, hesitancy, hematuria, flank pain, genital pain MUSCULOSKELETAL: Absent: myalgia, arthralgia, joint swelling SKIN: Absent: rash, itching, pallor HEMATOLOGIC/IMMUNOLOGIC: Absent: easy bleeding, easy bruising, lymphadenopathy, frequent infections ENDOCRINE: Absent: unexplained weight gain, unexplained weight loss, heat intolerance, cold intolerance NEUROLOGIC: Absent: headache, focal weakness or paresthesias, dizziness, unsteady gait, seizure, mental status changes, bladder or bowel incontinence PSYCHIATRIC: Absent: anxiety, depression, suicidal or homicidal ideation, hallucinations. All Other Systems: Reviewed and Negative *Physical Exam Vital Signs Temperature 97.8 F 08/31/17 05:38 Pulse Rate 85 08/31/17 05:38 Respiratory Rate 18 08/31/17 05:56 Blood Pressure 148/73 08/31/17 05:38 O2 Sat by Pulse Oximetry (%) 96 08/31/17 05:56 GENERAL: +Answers slowly but appropriately Well developed, well nourished. Awake and alert. In no acute distress. HEENT: Normocephalic, atraumatic. PERRLA, EOMI. No conjunctival pallor. Sclerae are non -icteric. Moist mucous membranes. Oropharynx is clear. NECK: Supple. Full ROM. No JVD. Carotid pulses 2+ and symmetric, without bruits. No thyromegaly. No lymphadenopathy. CARDIOVASCULAR: +Tachycardic Regular rhythm. No murmurs, rubs, or gallops. Distal pulses are 2+ and symmetric. PULMONARY: +Decreased breath sounds. No evidence of respiratory distress. Lungs clear to auscultation bilaterally. No wheezing, rales or rhonchi. ABDOMINAL: Soft. Non-tender. Non-distended. No rebound or guarding. No organomegaly. Normoactive bowel sounds. MUSCULOSKELETAL Normal range of motion at all joints. No bony deformities or tenderness. No CVA tenderness. 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 + Thrill upper extremities. +Bruit upper extremities. +Right upper extremity 5/5 muscle strength. +Right lower extremity 5/5. +Left lower extremitiy 4./5 strength. +Upper left extremity 4./5. No cyanosis. No clubbing. No edema. No calf tenderness. SKIN: Warm and dry. Normal capillary refill. No rashes. No jaundice. NEUROLOGICAL: Somnolent but arousable, no facial droop noted, moves ext grossly , not participating in confrontation testing CBCD WBC 7.6 K/mm3 (4.0-10.0) D 08/30/17 21:40 RBC 3.75 M/mm3 (4.00-5.60) L 08/30/17 21:40 Hgb 12.5 GM/dL (11.7-16.9) 08/30/17 21:40 Hct 37.1 % (35.4-49) 08/30/17 21:40 MCV 98.7 fl (80-96) H 08/30/17 21:40 MCHC 33.7 g/dl (32.0-35.9) 08/30/17 21:40 RDW 16.5 % (11.9-15.9) H 08/30/17 21:40 Plt Count 169 K/MM3 (134-434) D 08/30/17 21:40 MPV 7.9 fl (7.5-11.1) D 08/30/17 21:40 CMP Sodium 136 mmol/L (136-145) 08/30/17 21:40 Potassium 5.1 mmol/L (3.5-5.1) 08/30/17 21:40 Chloride 100 mmol/L (98-107) 08/30/17 21:40 Carbon Dioxide 27 mmol/L (21-32) 08/30/17 21:40 Anion Gap 9 (8-16) 08/30/17 21:40 BUN 47 mg/dL (7-18) H D 08/30/17 21:40 Creatinine 8.8 mg/dL (0.7-1.3) H* D 08/30/17 21:40 Creat Clearance w eGFR 6.40 (>60) 08/30/17 21:40 Random Glucose 97 mg/dL (74-106) D 08/30/17 21:40 Calcium 7.9 mg/dL (8.5-10.1) L 08/30/17 21:40 Total Bilirubin 0.4 mg/dL (0.2-1.0) D 08/30/17 21:40 AST 20 U/L (15-37) 08/30/17 21:40 ALT 19 U/L (12-78) 08/30/17 21:40 Alkaline Phosphatase 190 U/L (45-117) H D 08/30/17 21:40 Total Protein 7.2 g/dl (6.4-8.2) 08/30/17 21:40 Albumin 3.4 g/dl (3.4-5.0) 08/30/17 21:40 CARDIAC ENZYMES Creatine Kinase 131 IU/L (39-308) 08/30/17 21:40 Troponin I 0.03 ng/ml (0.00-0.05) 08/30/17 21:40 CT head reviewed Plan 51 year old male, From [facility], with a significant past medical history of ESRD, 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 Toxic metabolic encephalopathy with alerted mental status Likely 2/[address] head completed and did not show acute changes. Spoke with about having MRI brain and she was in agreement, ordered to rule out new CVA Renal consulted, monitor lytes ASA 81mg daily Monitor BP, maintain < 140/90, continue amlodipine Continue statin, on lipitor Monitor neurologic exam Increased PO/IV hydration Fall precautions
--- NOTE | 2017-08-31 12:51 | CONSULT ---
Consult Consult Specialty:: Nephrology Reason for Consultation:: ESRD - History of Present Illness Chief Complaint: change in mental status History of Present Illness: Pt is a 51 year old male with pmhx of ESRD, HTN, CVA, and chol who was brought to the ER for a change in mental status. I was called to evaluate him for HD. His last HD session was yesterday afternoon. His family are at bedside and say that his mental status has returned to baseline. Family says that pt was drooling. He is awake and appears comfortable. Pt had a full HD treatment yesterday. There were no issues. He did clot on HD on Monday. 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) Cardio/Vascular: Yes: HTN Renal/: Yes: Renal Failure, Hemodialysis - Alcohol/Substance Use Hx Alcohol Use: No - Smoking History Smoking history: Unknown if ever smoked Have you smoked in the past 12 months: No Home Medications - Allergies Allergies/Adverse Reactions: Allergies Allergy/AdvReac Type Severity Reaction Status Date / Time No Known Allergies Allergy Verified 07/07/17 18:36 - Home Medications Home Medications: Ambulatory Orders Atorvastatin Ca [Lipitor] 80 mg PO DAILY 07/08/17 Phenytoin Sodium Extended 100 mg PO TID 07/08/17 Sertraline HCl [Zoloft -] 50 mg PO DAILY 07/08/17 Labetalol HCl [Normodyne -] 200 mg PO BID tablet 07/11/17 Phenytoin Na Extended [Dilantin -] 100 mg PO TID tab 07/11/17 Sertraline HCl [Zoloft -] 50 mg PO DAILY tablet 07/11/17 Family Disease History - Family Disease History Family History: Unable to Obtain Family Disease History: Other: Sister (alive and well) Review of Systems Unable to obtain ROS, reason: pt not verbal Physical Exam Vital Signs: Vital Signs Temperature 97.8 F 08/31/17 05:38 Pulse Rate 85 08/31/17 05:38 Respiratory Rate 18 08/31/17 05:56 Blood Pressure 148/73 08/31/17 05:38 O2 Sat by Pulse Oximetry (%) 96 08/31/17 05:56 Constitutional: Yes: Calm Eyes: Yes: Conjunctiva Clear HENT: Yes: Atraumatic Cardiovascular: Yes: S1, S2 Respiratory: Yes: CTA Bilaterally Gastrointestinal: Yes: Normal Bowel Sounds, Soft Renal/: Yes: Incontinence Musculoskeletal: Yes: Muscle Weakness Edema: LLE: Trace, RLE: Trace Neurological: Yes: Aphasia, Pre-Existing Deficit Labs: CBC, BMP 08/30/17 21:40 08/30/17 21:40 Laboratory Tests 07/10/17 08/30/17 08/30/17 06:45 21:40 21:40 Hgb 12.2 12.5 Sodium 136 Potassium 5.1 Chloride 100 Anion Gap 9 BUN 47 H D Creatinine 8.8 H* D B-Natriuretic Peptide 9664.79 H Imaging - Results Cat Scan: Report Reviewed Problem List - Problems (1) Altered mental status, unspecified Code(s): R41.82 - ALTERED MENTAL STATUS, UNSPECIFIED Qualifiers: Altered mental status type: unspecified Qualified Code(s): R41.82 - Altered mental status, unspecified (2) ESRD (end stage renal disease) on dialysis Code(s): N18.6 - END STAGE RENAL DISEASE; Z99.2 - DEPENDENCE ON RENAL DIALYSIS (3) CVA, old, aphasia Code(s): I69.320 - APHASIA FOLLOWING CEREBRAL INFARCTION (4) Hypertension Code(s): I10 - ESSENTIAL (PRIMARY) HYPERTENSION Assessment/Plan Current Medications Generic Name Dose Route Start Last Admin Trade Name Freq PRN Reason Stop Dose Admin Acetaminophen 650 mg 08/31/17 02:54 Tylenol - PO Q6H PRN FEVER OR PAIN Atorvastatin Calcium 80 mg 08/31/17 22:00 Lipitor - PO HS TYREE Labetalol HCl 200 mg 08/31/17 10:00 Normodyne - PO BID TYREE Phenytoin Sodium 100 mg 08/31/17 06:00 08/31/17 06:19 Dilantin - PO 100 mg TID TYREE Administration Sertraline HCl 50 mg 08/31/17 10:00 Zoloft - PO DAILY TYREE Impression 1. ESRD 2. chol 3. hx CVA 4. HTN 5. altered mental status 6. failure to thrive Plan - called and discussed with HD center - will arrange for HD today - neuro input appreciated - repeat labs in am - will follow - HD: 3:30 hr opti 180, bfr 450, dw 58 kg, 2 k , av graft, venofer 50 weekly, heparin 1000 bolus
[2017-08-31] MEDS: LABETALOL HCL 200 MG TABLET (FP) PO SCH ×2 (12:52→22:28)
[2017-08-31] MEDS: SERTRALINE HCL 50 MG TABLET (FP) PO SCH (12:53)
--- NOTE | 2017-08-31 12:53 | EKG ---
Test Reason : Blood Pressure : / mmHG Vent. Rate : 081 BPM Atrial Rate : 081 BPM P-R Int : 132 ms QRS Dur : 080 ms QT Int : 402 ms P-R-T Axes : 081 022 052 degrees QTc Int : 466 ms NORMAL SINUS RHYTHM NORMAL ECG WHEN COMPARED WITH ECG OF 07-JUL-2017 21:03, NO SIGNIFICANT CHANGE WAS FOUND Confirmed by MAY TATE MD ([id number]) on 08/31/2017 12:52:50 PM Referred By: Confirmed By:MAY TATE MD
[2017-08-31] MEDS ORDERED: HEPARIN NA (PORCINE) 5,000 UNITS/ML 1ML VIAL IVPUSH ONE (12:57)
--- NOTE | 2017-08-31 13:05 | CONSULT ---
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 Toxic metabolic encephalopathy with alerted mental status Likely 2/[address] head completed and did not show acute changes. Pending MRI brain CXR RLL opacity Pt d/c'd from hospital on soft diet/nectar thick liquid. Pt's mother reports that he was holding food in his mouth, drooling, neeing to expectorate the food which facilitated the admission. She reports he has improved and tolerated a sandwich in the ER last night. 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 One instance of laryn penetration on thin. Oropharyn dyscoordination) - General Mental Status: Awake and Alert, Able to Follow Commands Attention: Intact Ability to Follow Directions: Fair Head/Neck Control: Fair - Hearing Hearing: Functional Speech Evaluation - Communication Primary Language: TELUGU Communication: Yes: Aphasia, Language Barrier Oral Expression Ability: Yes: Moderate Impairment - Speech Production Able to Make Needs Known: Yes: Moderately Impaired - Speech Characteristics Voice Loudness: Mildly Soft/Quiet Voice Pitch: Yes: Normal Voice Phonatory-based Quality: Yes: Normal Speech Pattern: Impaired Speech Clarity: < 50% Nasal Resonance: Normal Articulation: Yes: Imprecise - Language/Auditory Comprehension Follows: Yes: 1 Stage Simple Commands Observation: Comprehends Conversational Speech: Yes - Language/Verbal Expression Aphasia: Yes: Nonfluent, Apraxia Able to Respond to Simple Queries: Yes: Moderately Impaired - Swallow Evaluation/Bedside Assessment Current Nutritional Intake: Regular Oral Secretions: Yes: WFL Dentition: Yes: Adequate Lingual Movement: Deviates Left Laryngeal Movement: Able to Palpate, Labored,delay initiation Labial Seal: WFL Chewing: Impaired (slow but fairly efficient) A-P Transit: WFL Pocketing: None Timing of Swallow: Delayed Coughing/Throat Clear: No Change in Voice: No Recommendations - Speech Evaluation, Impression/Plan Impression: Speech and swallow back to baseline. - Dysphagia Impressions/Plan Dysphagia Impressions: Mild Impairment, Risk of Aspiration, Ongoing Evaluation *Silent aspiration: cannot be R/O at bedside - Recommendations Diet Consistency: Regular (soft) Liquids: [place] Thick
--- NOTE | 2017-08-31 13:11 | HP ---
Admitting History and Physical - Primary Care Physician PCP: Ban Singh - Admission Chief Complaint: AKTERED MENTAL STATUS History of Present Illness: Pt is a 51 year old male with pmhx of ESRD, HTN, CVA, and chol who was brought to the ER for a change in mental status. I was called to evaluate him for HD. His last HD session was yesterday afternoon. His family are at bedside and say that his mental status has returned to baseline. Family says that pt was drooling. He is awake and appears comfortable. Pt had a full HD treatment yesterday. There were no issues. He did clot on HD on Monday. 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) Cardiovascular: Yes: HTN Renal/: Yes: Renal Failure, Hemodialysis - Smoking History Smoking history: Unknown if ever smoked Have you smoked in the past 12 months: No - Alcohol/Substance Use Hx Alcohol Use: No Home Medications - Allergies Allergies/Adverse Reactions: Allergies Allergy/AdvReac Type Severity Reaction Status Date / Time No Known Allergies Allergy Verified 07/07/17 18:36 - Home Medications Home Medications: Ambulatory Orders Atorvastatin Ca [Lipitor] 80 mg PO DAILY 07/08/17 Phenytoin Sodium Extended 100 mg PO TID 07/08/17 Sertraline HCl [Zoloft -] 50 mg PO DAILY 07/08/17 Labetalol HCl [Normodyne -] 200 mg PO BID tablet 07/11/17 Phenytoin Na Extended [Dilantin -] 100 mg PO TID tab 07/11/17 Sertraline HCl [Zoloft -] 50 mg PO DAILY tablet 07/11/17 Family Disease History - Family Disease History Family Disease History: Other: Sister (alive and well) Review of Systems - Review of Systems Constitutional: reports: Loss of Appetite, Weakness Eyes: reports: No Symptoms HENT: reports: No Symptoms Neck: reports: No Symptoms Cardiovascular: reports: No Symptoms Respiratory: reports: No Symptoms Gastrointestinal: reports: No Symptoms Genitourinary: reports: No Symptoms Breasts: reports: Discharge from Nipple Musculoskeletal: reports: Muscle Weakness Integumentary: reports: No Symptoms Neurological: reports: Pre-Existing Deficit, Weakness Endocrine: reports: No Symptoms Hematology/Lymphatic: reports: No Symptoms Psychiatric: reports: No Symptoms Physical Examination Vital Signs: Vital Signs Temperature 97.8 F 08/31/17 05:38 Pulse Rate 85 08/31/17 05:38 Respiratory Rate 18 08/31/17 05:56 Blood Pressure 148/73 08/31/17 05:38 O2 Sat by Pulse Oximetry (%) 96 08/31/17 05:56 Constitutional: Yes: Mild Distress Eyes: Yes: WNL HENT: Yes: WNL Neck: Yes: WNL Cardiovascular: Yes: WNL Respiratory: Yes: WNL Gastrointestinal: Yes: WNL Renal/: Yes: Other Musculoskeletal: Yes: Muscle Weakness Extremities: Yes: WNL Edema: Yes Peripheral Pulses WNL: Yes Integumentary: Yes: WNL Wound/Incision: Yes: Other Neurological: Yes: Pre-Existing Deficit ...Motor Strength: LLE, RLE Psychiatric: Yes: Other Labs: CBC, BMP 08/30/17 21:40 08/30/17 21:40 Imaging - Results Cat Scan: Report Reviewed Problem List - Problems (1) Altered mental status, unspecified Code(s): R41.82 - ALTERED MENTAL STATUS, UNSPECIFIED Qualifiers: Altered mental status type: unspecified Qualified Code(s): R41.82 - Altered mental status, unspecified (2) ESRD (end stage renal disease) on dialysis Code(s): N18.6 - END STAGE RENAL DISEASE; Z99.2 - DEPENDENCE ON RENAL DIALYSIS (3) Anorexia Code(s): R63.0 - ANOREXIA (4) CVA, old, aphasia Code(s): I69.320 - APHASIA FOLLOWING CEREBRAL INFARCTION Assessment/Plan HD PER RENAL ID F/U LABS AND CULTURES SWALLOW JIMAL
[2017-08-31] MEDS: ATORVASTATIN CA 80 MG TABLET (FP) PO SCH (22:28)
[2017-09-01] MEDS: PHENYTOIN NA EXTENDED 100 MG CAPSULE (FP) PO SCH ×4 (00:04→22:20)
--- NOTE | 2017-09-01 09:26 | PN ---
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 As per patient's patient was behaving normally Monday afternoon in [place], after getting Dialyzed. She reports patient appeared depressed when seen Monday. Patient reports patient attempted to be dialyzed Monday, but there was a problem accessing patients fistula, and therefore was not completely dialyzed and likely cause for his alerted mental status. She reports patient was taken to Vascular surgeon at [facility] for fistula correction. Patients reports patient did not receive any continued dialysis Monday night or Monday. Patient's reported upon patients return to [place], family noticed patients responses were not normal. She reported patient appeared to be drooling but did not complain of any pain. CT head completed and did not show acute changes. MRI brain completed and did not show acute changes. Extensive white matter changes noted. Active Medications Acetaminophen (Tylenol -) 650 mg PO Q6H PRN PRN Reason: FEVER OR PAIN Atorvastatin Calcium (Lipitor -) 80 mg PO HS [facility] Last Admin: 08/31/17 22:28 Dose: 80 mg Labetalol HCl (Normodyne -) 200 mg PO BID [facility] Last Admin: 08/31/17 22:28 Dose: 200 mg Phenytoin Sodium (Dilantin -) 100 mg PO TID [facility] Last Admin: 09/01/17 06:34 Dose: 100 mg Sertraline HCl (Zoloft -) 50 mg PO DAILY [facility] Last Admin: 08/31/17 12:53 Dose: Not Given *Physical Exam Vital Signs Period Temp Pulse Resp BP Sys/Hu Pulse Ox Last 24 Hr 97.8 F-98.4 F 74-91 18-20 128-142/62-74 96-96 GENERAL: +Answers slowly but appropriately Well developed, well nourished. Awake and alert. In no acute distress. HEENT: Normocephalic, atraumatic. PERRLA, EOMI. No conjunctival pallor. Sclerae are non -icteric. Moist mucous membranes. Oropharynx is clear. NECK: Supple. Full ROM. No JVD. Carotid pulses 2+ and symmetric, without bruits. No thyromegaly. No lymphadenopathy. CARDIOVASCULAR: +Tachycardic Regular rhythm. No murmurs, rubs, or gallops. Distal pulses are 2+ and symmetric. PULMONARY: +Decreased breath sounds. No evidence of respiratory distress. Lungs clear to auscultation bilaterally. No wheezing, rales or rhonchi. ABDOMINAL: Soft. Non-tender. Non-distended. No rebound or guarding. No organomegaly. Normoactive bowel sounds. MUSCULOSKELETAL Normal range of motion at all joints. No bony deformities or tenderness. No CVA tenderness. 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 + Thrill upper extremities. +Bruit upper extremities. +Right upper extremity 5/5 muscle strength. +Right lower extremity 5/5. +Left lower extremitiy 4./5 strength. +Upper left extremity 4./5. No cyanosis. No clubbing. No edema. No calf tenderness. SKIN: Warm and dry. Normal capillary refill. No rashes. No jaundice. NEUROLOGICAL: Somnolent but arousable, no facial droop noted, moves ext grossly , not participating in confrontation testing CBCD WBC 7.6 K/mm3 (4.0-10.0) D 08/30/17 21:40 RBC 3.75 M/mm3 (4.00-5.60) L 08/30/17 21:40 Hgb 12.5 GM/dL (11.7-16.9) 08/30/17 21:40 Hct 37.1 % (35.4-49) 08/30/17 21:40 MCV 98.7 fl (80-96) H 08/30/17 21:40 MCHC 33.7 g/dl (32.0-35.9) 08/30/17 21:40 RDW 16.5 % (11.9-15.9) H 08/30/17 21:40 Plt Count 169 K/MM3 (134-434) D 08/30/17 21:40 MPV 7.9 fl (7.5-11.1) D 08/30/17 21:40 CMP Sodium 136 mmol/L (136-145) 08/30/17 21:40 Potassium 5.1 mmol/L (3.5-5.1) 08/30/17 21:40 Chloride 100 mmol/L (98-107) 08/30/17 21:40 Carbon Dioxide 27 mmol/L (21-32) 08/30/17 21:40 Anion Gap 9 (8-16) 08/30/17 21:40 BUN 47 mg/dL (7-18) H D 08/30/17 21:40 Creatinine 8.8 mg/dL (0.7-1.3) H* D 08/30/17 21:40 Creat Clearance w eGFR 6.40 (>60) 08/30/17 21:40 Calcium 7.9 mg/dL (8.5-10.1) L 08/30/17 21:40 Total Bilirubin 0.4 mg/dL (0.2-1.0) D 08/30/17 21:40 AST 20 U/L (15-37) 08/30/17 21:40 ALT 19 U/L (12-78) 08/30/17 21:40 Alkaline Phosphatase 190 U/L (45-117) H D 08/30/17 21:40 Total Protein 7.2 g/dl (6.4-8.2) 08/30/17 21:40 Albumin 3.4 g/dl (3.4-5.0) 08/30/17 21:40 CT head reviewed Plan 51 year old male, From [facility], with a significant past medical history of ESRD, 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 Toxic metabolic encephalopathy with alerted mental status Likely 2/[address] head completed and did not show acute changes. MRI brain without acute changes, white matter chronic microvascular disease noted ASA 81mg daily Monitor BP, maintain < 140/90, continue amlodipine Continue statin, on lipitor Increased PO/IV hydration Fall precautions No further rec'd at this time
--- NOTE | 2017-09-01 11:49 | DS ---
Physical Examination Vital Signs: Vital Signs Temperature 98.3 F 09/01/17 06:00 Pulse Rate 86 09/01/17 06:00 Respiratory Rate 18 09/01/17 06:00 Blood Pressure 130/66 09/01/17 06:00 O2 Sat by Pulse Oximetry (%) 96 08/31/17 21:00 Findings/Remarks: WORKUP WITH NEUROLOGY NO ACUTE CHANGES CHRONIC CVA APHASIA AMD NON-AMBULATORY Constitutional: Yes: Mild Distress Eyes: Yes: WNL HENT: Yes: WNL Neck: Yes: WNL Cardiovascular: Yes: WNL Respiratory: Yes: WNL Gastrointestinal: Yes: WNL Renal/: Yes: Other Musculoskeletal: Yes: Muscle Weakness Extremities: Yes: Other Edema: Yes Peripheral Pulses WNL: Yes Integumentary: Yes: Other Wound/Incision: Yes: Other Neurological: Yes: Aphasia, Numbness, Paresthesia, Pre-Existing Deficit, Unresponsive, Weakness ...Motor Strength: LUE, LLE, RUE, RLE Psychiatric: Yes: Other Labs: CBC, BMP 08/30/17 21:40 08/30/17 21:40 Discharge Summary Reason For Visit: AMS END STAGE RENAL FAILURE ON DIALYSIS Current Active Problems Altered mental status, unspecified (Acute) ESRD (end stage renal disease) on dialysis (Acute) CHRONIC CVA HEMIPARESIS REQUIRING FULL ASSISTANCE WITH DAILY ACTIVITY Procedures: Principal: MRI/CT HEAD Hospital Course: NEUROLOGY AND NEPHROLOGY WORK UP SWALLOW EVAL NO ACUTE CHANGES Condition: Stable - Instructions Diet, Activity, Other Instructions: NECTAR THICK LIQUIDS SOFT DIET ASPIRATION PRECAUTION Referrals: Ban Singh MD [Primary Care Provider] - Disposition: [facility] - Home Medications Comprehensive Discharge Medication List: Ambulatory Orders Atorvastatin Ca [Lipitor] 80 mg PO DAILY 07/08/17 Phenytoin Sodium Extended 100 mg PO TID 07/08/17 Sertraline HCl [Zoloft -] 50 mg PO DAILY 07/08/17 Labetalol HCl [Normodyne -] 200 mg PO BID tablet 07/11/17 Phenytoin Na Extended [Dilantin -] 100 mg PO TID tab 07/11/17 Sertraline HCl [Zoloft -] 50 mg PO DAILY tablet 07/11/17
[2017-09-01] MEDS ORDERED: PT OWN MED DRAWER 7, Y5N ONE (12:11)
[2017-09-01] MEDS: SERTRALINE HCL 50 MG TABLET (FP) PO SCH (12:11)
[2017-09-01] MEDS: LABETALOL HCL 200 MG TABLET (FP) PO SCH ×2 (12:12→22:20)
--- NOTE | 2017-09-01 16:56 | PN ---
Progress Note, Physician History of Present Illness: Pt seen and examined at bedside. He appears comfortable. He tolerated HD last night. - Current Medication List Current Medications: Active Medications Acetaminophen (Tylenol -) 650 mg PO Q6H PRN PRN Reason: FEVER OR PAIN Atorvastatin Calcium (Lipitor -) 80 mg PO HS [facility] Last Admin: 08/31/17 22:28 Dose: 80 mg Labetalol HCl (Normodyne -) 200 mg PO BID [facility] Last Admin: 09/01/17 12:12 Dose: 200 mg Phenytoin Sodium (Dilantin -) 100 mg PO TID [facility] Last Admin: 09/01/17 14:43 Dose: 100 mg Sertraline HCl (Zoloft -) 50 mg PO DAILY [facility] Last Admin: 09/01/17 12:11 Dose: 50 mg - Objective Vital Signs: Vital Signs Temperature 98.6 F 09/01/17 14:16 Pulse Rate 90 09/01/17 14:16 Respiratory Rate 20 09/01/17 14:16 Blood Pressure 150/72 09/01/17 14:16 O2 Sat by Pulse Oximetry (%) 96 08/31/17 21:00 Constitutional: Yes: Calm Eyes: Yes: Conjunctiva Clear HENT: Yes: Atraumatic Cardiovascular: Yes: S1, S2 Respiratory: Yes: CTA Bilaterally Gastrointestinal: Yes: Soft Genitourinary: Yes: Incontinence Musculoskeletal: Yes: Muscle Weakness Edema: No Neurological: Yes: Oriented Psychiatric: Yes: Oriented Labs: CBC, BMP 08/30/17 21:40 08/30/17 21:40 INR, PTT INR 1.13 (0.82-1.09) 08/30/17 21:40 Problem List - Problems (1) Altered mental status, unspecified Code(s): R41.82 - ALTERED MENTAL STATUS, UNSPECIFIED Qualifiers: Altered mental status type: unspecified Qualified Code(s): R41.82 - Altered mental status, unspecified (2) ESRD (end stage renal disease) on dialysis Code(s): N18.6 - END STAGE RENAL DISEASE; Z99.2 - DEPENDENCE ON RENAL DIALYSIS (3) CVA, old, aphasia Code(s): I69.320 - APHASIA FOLLOWING CEREBRAL INFARCTION (4) Hypertension Code(s): I10 - ESSENTIAL (PRIMARY) HYPERTENSION Assessment/Plan Current Medications Generic Name Dose Route Start Last Admin Trade Name Freq PRN Reason Stop Dose Admin Acetaminophen 650 mg 08/31/17 02:54 Tylenol - PO Q6H PRN FEVER OR PAIN Atorvastatin Calcium 80 mg 08/31/17 22:00 08/31/17 22:28 Lipitor - PO 80 mg HS TYREE Administration Labetalol HCl 200 mg 08/31/17 10:00 09/01/17 12:12 Normodyne - PO 200 mg BID TYREE Administration Phenytoin Sodium 100 mg 08/31/17 06:00 09/01/17 14:43 Dilantin - PO 100 mg TID TYREE Administration Sertraline HCl 50 mg 08/31/17 10:00 09/01/17 12:11 Zoloft - PO 50 mg DAILY TYREE Administration Impression 1. ESRD 2. chol 3. hx CVA 4. HTN 5. altered mental status 6. failure to thrive Plan - will arrange HD for tomorrow morning - pt is on a MWF schedule as outpt and can be dialyzed on Monday at [facility] - neuro input appreciated - repeat labs in am - will follow - HD: 3:30 hr opti 180, bfr 450, dw 58 kg, 2 k , av graft, venofer 50 weekly, heparin 1000 bolus
[2017-09-01] MEDS: ATORVASTATIN CA 80 MG TABLET (FP) PO SCH (22:20)
[2017-09-02] MEDS: PHENYTOIN NA EXTENDED 100 MG CAPSULE (FP) PO SCH ×3 (05:58→21:26)
[2017-09-02] MEDS ORDERED: HEPARIN NA (PORCINE) 5,000 UNITS/ML 1ML VIAL IVPUSH ONE (09:30)
[2017-09-02 09:56] LABS: MCH 32.8 pg (25.7-33.7); MCHC 32.6 g/dl (32.0-35.9); MEAN CELL VOLUME 100.7 fl (80-96); MEAN PLT VOLUME 8.3 fl (7.5-11.1); PLATELET COUNT 156 K/MM3 (134-434); RDW 16.6 % (11.9-15.9); WHITE BLOOD COUNT 6.4 K/mm3 (4.0-10.0)
[2017-09-02 10:12] LABS: ANION GAP 11 (8-16); CALCIUM 7.3 mg/dL (8.5-10.1); CO2 28 mmol/L (21-32); GLUCOSE,RANDOM 133 mg/dL (74-106)
[2017-09-02 10:51] LABS: CREATININE 9.1 mg/dL (0.7-1.3)
--- NOTE | 2017-09-02 12:31 | PN ---
Progress Note (short form) - Note Progress Note: Renal Pt seen during hd appears comfortable Last Vital Signs Temp Pulse Resp BP Pulse Ox 98.6 F 93 H 18 114/61 96 09/02/17 08:45 09/02/17 11:20 09/02/17 11:20 09/02/17 11:20 09/01/17 21:00 lungs clear cvs s1s2 rr abd soft ext no edema neuro arousable Current Medications Generic Name Dose Route Start Last Admin Trade Name Cr PRN Reason Stop Dose Admin Acetaminophen 650 mg 08/31/17 02:54 Tylenol - PO Q6H PRN FEVER OR PAIN Atorvastatin Calcium 80 mg 08/31/17 22:00 09/01/17 22:20 Lipitor - PO 80 mg HS TYREE Administration Labetalol HCl 200 mg 08/31/17 10:00 09/01/17 22:20 Normodyne - PO 200 mg BID TYREE Administration Phenytoin Sodium 100 mg 08/31/17 06:00 09/02/17 05:58 Dilantin - PO 100 mg TID TYREE Administration Sertraline HCl 50 mg 08/31/17 10:00 09/01/17 12:11 Zoloft - PO 50 mg DAILY TYREE Administration CBC, BMP 09/02/17 09:00 09/02/17 09:00 Impression 1. ESRD 2. chol 3. hx CVA 4. HTN 5. altered mental status 6. failure to thrive Plan - continue hd tiw - pt is on a MWF schedule as outpt and can be dialyzed on Monday at [facility] - no changes MV
[2017-09-02 13:22] LABS: CREATININE 3.5 mg/dL (0.7-1.3)
[2017-09-02] MEDS: SERTRALINE HCL 50 MG TABLET (FP) PO SCH (13:26)
[2017-09-02] MEDS: LABETALOL HCL 200 MG TABLET (FP) PO SCH ×2 (13:26→21:26)
--- NOTE | 2017-09-02 16:49 | PN ---
Progress Note (short form) - Note Progress Note: PATIENT SEEN AND EXAMINED HD TODAY AWAITING AUTHORIZATION FOR DISCHARGE Problem List - Problems (1) Altered mental status, unspecified Code(s): R41.82 - ALTERED MENTAL STATUS, UNSPECIFIED Qualifiers: Altered mental status type: unspecified Qualified Code(s): R41.82 - Altered mental status, unspecified (2) ESRD (end stage renal disease) on dialysis Code(s): N18.6 - END STAGE RENAL DISEASE; Z99.2 - DEPENDENCE ON RENAL DIALYSIS (3) Anorexia Code(s): R63.0 - ANOREXIA (4) CVA, old, aphasia Code(s): I69.320 - APHASIA FOLLOWING CEREBRAL INFARCTION
[2017-09-02] MEDS: ATORVASTATIN CA 80 MG TABLET (FP) PO SCH (21:26)
[2017-09-03] MEDS: PHENYTOIN NA EXTENDED 100 MG CAPSULE (FP) PO SCH ×3 (05:35→21:37)
[2017-09-03] MEDS: LABETALOL HCL 200 MG TABLET (FP) PO SCH ×2 (09:20→21:38)
[2017-09-03] MEDS: SERTRALINE HCL 50 MG TABLET (FP) PO SCH (09:20)
--- NOTE | 2017-09-03 11:41 | PN ---
Progress Note (short form) - Note Progress Note: Renal appears comfortable Last Vital Signs Temp Pulse Resp BP Pulse Ox 98.9 F 89 18 137/67 98 09/03/17 09:19 09/03/17 09:19 09/03/17 09:19 09/03/17 09:19 09/03/17 09:00 lungs clear cvs s1s2 rr +SOPHIA abd soft ext no edema neuro arousable Current Medications Generic Name Dose Route Start Last Admin Trade Name Freq PRN Reason Stop Dose Admin Acetaminophen 650 mg 08/31/17 02:54 09/02/17 16:00 Tylenol - PO 650 mg Q6H PRN Administration FEVER OR PAIN Atorvastatin Calcium 80 mg 08/31/17 22:00 09/02/17 21:26 Lipitor - PO 80 mg HS TYREE Administration Labetalol HCl 200 mg 08/31/17 10:00 09/03/17 09:20 Normodyne - PO 200 mg BID TYREE Administration Phenytoin Sodium 100 mg 08/31/17 06:00 09/03/17 05:35 Dilantin - PO 100 mg TID TYREE Administration Sertraline HCl 50 mg 08/31/17 10:00 09/03/17 09:20 Zoloft - PO 50 mg DAILY TYREE Administration CBC, BMP 09/02/17 09:00 09/02/17 12:20 Impression 1. ESRD 2. chol 3. hx CVA 4. HTN 5. altered mental status 6. failure to thrive Plan - continue hd tiw - pt is on a MWF schedule as outpt and can be dialyzed on Monday at [facility] - no changes MV
--- NOTE | 2017-09-03 12:44 | PN ---
Progress Note (short form) - Note Progress Note: PATIENT EATING LUNCH STABLE AWAITING TRANSFER TO [facility] WITH INSURANCE AUTH HD TOMORROW Problem List - Problems (1) Altered mental status, unspecified Code(s): R41.82 - ALTERED MENTAL STATUS, UNSPECIFIED Qualifiers: Altered mental status type: unspecified Qualified Code(s): R41.82 - Altered mental status, unspecified (2) ESRD (end stage renal disease) on dialysis Code(s): N18.6 - END STAGE RENAL DISEASE; Z99.2 - DEPENDENCE ON RENAL DIALYSIS (3) Anorexia Code(s): R63.0 - ANOREXIA (4) CVA, old, aphasia Code(s): I69.320 - APHASIA FOLLOWING CEREBRAL INFARCTION
[2017-09-03] MEDS ORDERED: PT OWN MED DRAWER 7, Y5N ONE (13:27)
[2017-09-03] MEDS: ATORVASTATIN CA 80 MG TABLET (FP) PO SCH (21:37)
[2017-09-04] MEDS: PHENYTOIN NA EXTENDED 100 MG CAPSULE (FP) PO SCH ×2 (05:47→14:57)
--- NOTE | 2017-09-04 08:55 | PN ---
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 As per patient's patient was behaving normally Monday afternoon in [facility], after getting Dialyzed. She reports patient appeared depressed when seen Monday. Patient reports patient attempted to be dialyzed Monday, but there was a problem accessing patients fistula, and therefore was not completely dialyzed and likely cause for his alerted mental status. She reports patient was taken to Vascular surgeon at [facility] for fistula correction. Patients reports patient did not receive any continued dialysis Monday night or Monday. Patient's reported upon patients return to [place], family noticed patients responses were not normal. She reported patient appeared to be drooling but did not complain of any pain. CT head completed and did not show acute changes. MRI brain completed and did not show acute changes. Extensive white matter changes noted but no new CVA. Patient for transfer to SNF. No neurologic events over the weekend. Calm and comfortable this AM. Active Medications Acetaminophen (Tylenol -) 650 mg PO Q6H PRN PRN Reason: FEVER OR PAIN Last Admin: 09/02/17 16:00 Dose: 650 mg Atorvastatin Calcium (Lipitor -) 80 mg PO HS [facility] Last Admin: 09/03/17 21:37 Dose: 80 mg Labetalol HCl (Normodyne -) 200 mg PO BID [facility] Last Admin: 09/03/17 21:38 Dose: 200 mg Phenytoin Sodium (Dilantin -) 100 mg PO TID [facility] Last Admin: 09/04/17 05:47 Dose: 100 mg Sertraline HCl (Zoloft -) 50 mg PO DAILY [facility] Last Admin: 09/03/17 09:20 Dose: 50 mg *Physical Exam Vital Signs Period Temp Pulse Resp BP Sys/Hu Pulse Ox Last 24 Hr 98.4 F-98.9 F 83-90 18-20 127-155/64-80 98-98 GENERAL: +Answers slowly but appropriately Well developed, well nourished. Awake and alert. In no acute distress. HEENT: Normocephalic, atraumatic. PERRLA, EOMI. No conjunctival pallor. Sclerae are non -icteric. Moist mucous membranes. Oropharynx is clear. NECK: Supple. Full ROM. No JVD. Carotid pulses 2+ and symmetric, without bruits. No thyromegaly. No lymphadenopathy. CARDIOVASCULAR: +Tachycardic Regular rhythm. No murmurs, rubs, or gallops. Distal pulses are 2+ and symmetric. PULMONARY: +Decreased breath sounds. No evidence of respiratory distress. Lungs clear to auscultation bilaterally. No wheezing, rales or rhonchi. ABDOMINAL: Soft. Non-tender. Non-distended. No rebound or guarding. No organomegaly. Normoactive bowel sounds. MUSCULOSKELETAL Normal range of motion at all joints. No bony deformities or tenderness. No CVA tenderness. 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 + Thrill upper extremities. +Bruit upper extremities. +Right upper extremity 5/5 muscle strength. +Right lower extremity 5/5. +Left lower extremitiy 4./5 strength. +Upper left extremity 4./5. No cyanosis. No clubbing. No edema. No calf tenderness. SKIN: Warm and dry. Normal capillary refill. No rashes. No jaundice. NEUROLOGICAL: Somnolent but arousable, no facial droop noted, moves ext grossly , not participating in confrontation testing CBCD WBC 6.4 K/mm3 (4.0-10.0) 09/02/17 09:00 RBC 3.75 M/mm3 (4.00-5.60) L 09/02/17 09:00 Hgb 12.3 GM/dL (11.7-16.9) 09/02/17 09:00 Hct 37.8 % (35.4-49) 09/02/17 09:00 MCV 100.7 fl (80-96) H 09/02/17 09:00 MCHC 32.6 g/dl (32.0-35.9) 09/02/17 09:00 RDW 16.6 % (11.9-15.9) H 09/02/17 09:00 Plt Count 156 K/MM3 (134-434) 09/02/17 09:00 MPV 8.3 fl (7.5-11.1) 09/02/17 09:00 CMP Sodium 141 mmol/L (136-145) 09/02/17 09:00 Potassium 4.5 mmol/L (3.5-5.1) 09/02/17 09:00 Chloride 102 mmol/L (98-107) 09/02/17 09:00 Carbon Dioxide 28 mmol/L (21-32) 09/02/17 09:00 Anion Gap 11 (8-16) 09/02/17 09:00 BUN 17 mg/dL (7-18) D 09/02/17 12:20 Creatinine 3.5 mg/dL (0.7-1.3) H D 09/02/17 12:20 Creat Clearance w eGFR 6.40 (>60) 08/30/17 21:40 Calcium 7.3 mg/dL (8.5-10.1) L 09/02/17 09:00 Total Bilirubin 0.4 mg/dL (0.2-1.0) D 08/30/17 21:40 AST 20 U/L (15-37) 08/30/17 21:40 ALT 19 U/L (12-78) 08/30/17 21:40 Alkaline Phosphatase 190 U/L (45-117) H D 08/30/17 21:40 Total Protein 7.2 g/dl (6.4-8.2) 08/30/17 21:40 Albumin 3.4 g/dl (3.4-5.0) 08/30/17 21:40 CT head reviewed MRI brain reviewed Plan 51 year old male, From [facility], with a significant past medical history of ESRD, 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 Toxic metabolic encephalopathy with alerted mental status Likely 2/[address] head completed and did not show acute changes. MRI brain without acute changes, white matter chronic microvascular disease noted ASA 81mg daily Monitor BP, maintain < 140/90, continue amlodipine Continue statin, on lipitor Increased PO/IV hydration Fall precautions For transfer to SNF No further rec'd at this time
[2017-09-04] MEDS: LABETALOL HCL 200 MG TABLET (FP) PO SCH (10:04)
[2017-09-04] MEDS: SERTRALINE HCL 50 MG TABLET (FP) PO SCH (10:04)
--- NOTE | 2017-09-04 13:01 | PN ---
Progress Note, Physician History of Present Illness: Pt seen and examined at bedside. No new events. - Current Medication List Current Medications: Active Medications Acetaminophen (Tylenol -) 650 mg PO Q6H PRN PRN Reason: FEVER OR PAIN Last Admin: 09/02/17 16:00 Dose: 650 mg Atorvastatin Calcium (Lipitor -) 80 mg PO HS [facility] Last Admin: 09/03/17 21:37 Dose: 80 mg Labetalol HCl (Normodyne -) 200 mg PO BID [facility] Last Admin: 09/04/17 10:04 Dose: 200 mg Phenytoin Sodium (Dilantin -) 100 mg PO TID [facility] Last Admin: 09/04/17 05:47 Dose: 100 mg Sertraline HCl (Zoloft -) 50 mg PO DAILY [facility] Last Admin: 09/04/17 10:04 Dose: 50 mg - Objective Vital Signs: Vital Signs Temperature 98.3 F 09/04/17 10:00 Pulse Rate 78 09/04/17 10:00 Respiratory Rate 18 09/04/17 10:00 Blood Pressure 123/59 09/04/17 10:00 O2 Sat by Pulse Oximetry (%) 98 09/03/17 21:00 Constitutional: Yes: Calm Eyes: Yes: Conjunctiva Clear HENT: Yes: Atraumatic Neck: Yes: Supple Cardiovascular: Yes: S1, S2 Respiratory: Yes: CTA Bilaterally Gastrointestinal: Yes: Soft Genitourinary: Yes: Incontinence Musculoskeletal: Yes: Muscle Weakness Edema: No Neurological: Yes: Pre-Existing Deficit Labs: CBC, BMP 09/02/17 09:00 09/02/17 12:20 INR, PTT INR 1.13 (0.82-1.09) 08/30/17 21:40 Problem List - Problems (1) Altered mental status, unspecified Code(s): R41.82 - ALTERED MENTAL STATUS, UNSPECIFIED Qualifiers: Altered mental status type: unspecified Qualified Code(s): R41.82 - Altered mental status, unspecified (2) ESRD (end stage renal disease) on dialysis Code(s): N18.6 - END STAGE RENAL DISEASE; Z99.2 - DEPENDENCE ON RENAL DIALYSIS (3) CVA, old, aphasia Code(s): I69.320 - APHASIA FOLLOWING CEREBRAL INFARCTION (4) Hypertension Code(s): I10 - ESSENTIAL (PRIMARY) HYPERTENSION Assessment/Plan Current Medications Generic Name Dose Route Start Last Admin Trade Name Cr PRN Reason Stop Dose Admin Acetaminophen 650 mg 08/31/17 02:54 09/02/17 16:00 Tylenol - PO 650 mg Q6H PRN Administration FEVER OR PAIN Atorvastatin Calcium 80 mg 08/31/17 22:00 09/03/17 21:37 Lipitor - PO 80 mg HS TYREE Administration Labetalol HCl 200 mg 08/31/17 10:00 09/04/17 10:04 Normodyne - PO 200 mg BID TYREE Administration Phenytoin Sodium 100 mg 08/31/17 06:00 09/04/17 05:47 Dilantin - PO 100 mg TID TYREE Administration Sertraline HCl 50 mg 08/31/17 10:00 09/04/17 10:04 Zoloft - PO 50 mg DAILY TYREE Administration Impression 1. ESRD 2. chol 3. hx CVA 4. HTN 5. altered mental status 6. failure to thrive Plan - HD in am if pt is not discharged - spoke with Jami, if he is discharged today then he can get HD there tomorrow - unable to dialyze today secondary to scheduling problems (pt last dialyzed on Monday) - pt is on a MWF schedule as outpt - neuro input appreciated - repeat labs in am - will follow - HD: 3:30 hr opti 180, bfr 450, dw 58 kg, 2 k , av graft, venofer 50 weekly, heparin 1000 bolus
[2017-09-04] MEDS ORDERED: PT OWN MED DRAWER 7, Y5N ONE (14:32)
[2017-09-04 15:46] VITALS: BP 136/57; PULSE 79; TEMP 98.5
[2017-09-05] MEDS ORDERED: HEPARIN NA (PORCINE) 5,000 UNITS/ML 1ML VIAL IVPUSH ONE (13:01)
== END 2017-09-04 18:14 | DRG 52 ==
LOC: JER 18:32 → JERBED 08-31 00:40 → UNDOADMIN 08-31 00:46 → JERBED 08-31 00:46 → J5S 08-31 15:00
PROVIDERS: ADMIT Family Medicine; ATTEND Family Medicine
PROC: 5A1D90Z Performance of Urinary Filtration, Continuous, Greater than 18 hours Per Day (ICD-10-PCS; principal; 2017-09-02)
DX: G92 Toxic encephalopathy (principal); I12.0 Hypertensive chronic kidney disease with stage 5 chronic kidney disease or end stage renal disease; N18.6 End stage renal disease; Z99.2 Dependence on renal dialysis; I69.320 Aphasia following cerebral infarction; E78.5 Hyperlipidemia, unspecified; R63.0 Anorexia; R41.82 Altered mental status, unspecified; R62.7 Adult failure to thrive; I69.359 Hemiplegia and hemiparesis following cerebral infarction affecting unspecified side; Z68.20 Body mass index [BMI] 20.0-20.9, adult
CPT/HCPCS: 36415; 70450-TC; 70551-TC; 71010-TC; 80048; 80053; 82550; 82565; 83880; 84484; 84520; 85025; 85027; 85610; 86704; 86706; 86708; 86803; 86850; 86900; 86901; 87340; 93005; 93010; 99284-25; J1644

== ENCOUNTER 2017-12-23 20:21 | Inpatient (IN) | payer OTHER ==
--- NOTE | 2017-12-23 20:58 | PDOC ---
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 The patient is unable to speak due to his surgery in 2014. As per EMS, the patient was febrile with an associated cough. The group home sent him to [facility] to rule out sepsis. The patient is on Dilantin and Doxycycline. Allergies: NKA Past surgical history: None reported. Social History: Nonsmoker. Denies EtOH use and recreational drug use. Primary Care Physician:Dr. Singh <Aneta Treadwell - Last Filed: 12/23/17 23:08> <Sean Mullen - Last Filed: 12/24/17 00:27> - General Stated Complaint: FEVER Time Seen by Provider: 12/23/17 20:58 Past History <Aneta Treadwell - Last Filed: 12/23/17 23:08> - Past Medical History CVA: Yes (X 2 WITH RESIDUAL WEAKNESS AND APHASIA.) COPD: No Diabetes: Yes Dialysis: Yes ([facility]-) HTN: Yes Hypercholesterolemia: Yes Kidney Stones: Yes - Suicide/Smoking/Psychosocial Hx Smoking History: Unknown if ever smoked Have you smoked in the past 12 months: No Hx Alcohol Use: No Drug/Substance Use Hx: No Substance Use Type: None <Sean Mullen - Last Filed: 12/24/17 00:27> - Past Medical History Allergies/Adverse Reactions: Allergies Allergy/AdvReac Type Severity Reaction Status Date / Time No Known Allergies Allergy Verified 12/23/17 21:00 Home Medications: Ambulatory Orders Acetaminophen [Tylenol] 650 mg PO PRN PRN 12/23/17 Ascorbic Acid [Vitamin C -] 500 mg PO DAILY 12/23/17 Aspirin 81 mg PO DAILY 12/23/17 Atorvastatin Ca [Lipitor] 80 mg PO HS 12/23/17 Calcium Acetate [Phoslo -] 667 mg PO DAILY 12/23/17 Labetalol HCl [Normodyne -] 200 mg PO BID 12/23/17 Phenytoin Na Extended [Dilantin -] 200 mg PO DAILY 12/23/17 Phenytoin Na Extended [Dilantin -] 300 mg PO HS 12/23/17 Sertraline HCl [Zoloft -] 50 mg PO DAILY 12/23/17 Vitamin B Comp W-C [Nephro-Masha -] 1 tablet PO DAILY 12/23/17 Review of Systems - Review of Systems Able to Perform ROS?: Yes Comments:: 12/23/17 21:59 CONSTITUTIONAL: +Febrile. No chills, no fatigue EYES: No visual changes ENT: No ear pain, no sore throat CARDIOVASCULAR: No chest pain, no palpitations RESPIRATORY: +Cough. No SOB GI: No abdominal pain, no nausea, no vomiting, no constipation, no diarrhea GENITOURINARY: No dysuria, no frequency, no hematuria MUSKULOSKELETAL: No backpain, no joint pain, no myalgias SKIN: No rash NEURO: No headache All Other Systems: Reviewed and Negative <Aneta Treadwell - Last Filed: 12/23/17 23:08> *Physical Exam - Vital Signs Last Vital Signs Temp Pulse Resp BP Pulse Ox 89 14 215/66 94 L 12/23/17 21:00 12/23/17 21:00 12/23/17 21:00 12/23/17 21:00 - Physical Exam Comments: 12/23/17 22:53 CONSTITUTIONAL: +Lethargic, arousable to verbal stimuli. Does not follow verbal commands. In no apparent distress. HEAD: +Left lower facial droop. Normocephalic; atraumatic EYES: PERRL; EOM intact ENMT: +Dry mucous membranes. External appears normal NECK: Supple; non-tender; no cervical lymphadenopathy CARD: Normal S1, S2; no murmurs, rubs, or gallops RESP: Normal chest excursion with respiration; breath sounds clear and equal bilaterally; no wheezes, rhonchi, or rales ABD: Soft, non-distended; non-tender; no palpable organomegaly, no palpable hernias EXT: +Left lower extremity weakness. Moves upper extremities. Non-tender to palpation; distal pulses intact SKIN: Warm, dry. No petechial rash. NEURO: No focal neurological deficiencies. <Aneta Treadwell - Last Filed: 12/23/17 23:08> ED Treatment Course - LABORATORY CBC & Chemistry Diagram: 12/23/17 21:31 12/23/17 21:24 - ADDITIONAL ORDERS Additional order review: 12/23/17 21:31 RBC 3.82 L MCV 95.4 MCHC 34.0 RDW 13.9 D MPV 8.2 Neutrophils % 75.2 Lymphocytes % 10.2 D Monocytes % 13.0 H Eosinophils % 1.0 Basophils % 0.6 - Medications Given in the ED: ED Medications Discontinued Medications Generic Name Dose Route Start Last Admin Trade Name Freq PRN Reason Stop Dose Admin Acetaminophen 650 mg 12/23/17 21:40 12/23/17 21:40 Tylenol Suppository - MT 12/23/17 21:41 650 mg NOW ONE Administration <Aneta Treadwell - Last Filed: 12/23/17 23:08> - LABORATORY CBC & Chemistry Diagram: 12/23/17 21:31 12/23/17 21:24 <Sean Mullen - Last Filed: 12/24/17 00:27> Medical Decision Making - Medical Decision Making 11:00pm Vent rate: 94 bpm MT interval: 128 ms QRS duration: 80 ms QT/QTc: 364/455 ms P-R-T axes: 76 47 43 Normal Sinus Rhythm, Normal ECG. <Aneta Treadwell - Last Filed: 12/23/17 23:08> - Medical Decision Making 12/23/17 23:14 Patient is a frail-appearing 52-year-old male with multiple comorbidities who presents with fever of 104 and nonproductive cough. In the ER, patient's febrile , hypertensive initial evaluation. Patient is mute and does not follow commands. Mucous membranes are noted to be dry. Chest x-ray reveals no evidence of infiltrate or effusion. There is no evidence of soft tissue or skin infection at this time. Urinalysis reveals no evidence of pyuria. CBC is unremarkable. CMP reveals elevated BUN and creatinine consistent with chronic renal insufficiency. Patient is flu negative at this time. We'll administer vancomycin and gentamicin IV for suspected sepsis. Will admit. 12/24/17 00:27 pt remains febrie to 103F. will administer iv ibuprofen. <Sean Mullen - Last Filed: 12/24/17 00:27> *DC/Admit/Observation/Transfer - Attestations Scribe Attestion: 12/23/17 21:59 Documentation prepared by Aneta Treadwell, acting as medical observer for Sean Mullen MD. <Aneta Treadwell - Last Filed: 12/23/17 23:08> - Discharge Dispostion Admit: Yes - Attestations Physician Attestion: 12/23/17 23:13 The documentation was prepared by the scribe under my direct supervision. I have reviewed the documentation which correctly represents the findings, medical decision-making and critical action taken by me. <Sean Mullen - Last Filed: 12/24/17 00:27> Diagnosis at time of Disposition: ESRD (end stage renal disease) on dialysis Sepsis Qualifiers: Sepsis type: sepsis due to unspecified organism Qualified Code(s): A41.9 - Sepsis, unspecified organism - Discharge Dispostion Condition at time of disposition: Fair
[2017-12-23] MEDS ORDERED: ACETAMINOPHEN 650 MG SUPP.RECT ONE (21:23)
[2017-12-23] MEDS ORDERED: SODIUM CHLORIDE 0.9% 1000 ML INFUS.BAG IV STA (21:31)
[2017-12-23] MEDS ORDERED: VANCOMYCIN 1,500 MG in DEXTROSE 5%-WATER - 500 ML IVPB ONE (21:34)
[2017-12-23] MEDS ORDERED: GENTAMICIN INJECTION 100 MG in SODIUM CHLORIDE 97.5 ML IVPB ONE (21:35)
[2017-12-23] MEDS ORDERED: ACETAMINOPHEN 650 MG SUPP.RECT PR ONE (21:40)
[2017-12-23 21:42] LABS: BASO % 0.6 % (0-2.0); HEMATOCRIT 36.5 % (35.4-49); HEMOGLOBIN 12.4 GM/dL (11.7-16.9); LYMPH % 10.2 % (8-40); MCH 32.4 pg (25.7-33.7); MEAN CELL VOLUME 95.4 fl (80-96); MEAN PLT VOLUME 8.2 fl (7.5-11.1); NEUT % 75.2 % (42.8-82.8); PLATELET COUNT 108 K/MM3 (134-434); RBC 3.82 M/mm3 (4.00-5.60); RDW 13.9 % (11.9-15.9); WHITE BLOOD COUNT 10.3 K/mm3 (4.0-10.0)
[2017-12-23] MEDS ORDERED: VANCOMYCIN 500 MG VIAL (RESTRICTED TO ID ONLY) ONE (21:50)
[2017-12-23] MEDS ORDERED: VANCOMYCIN 1 GRAM (PRE-DOCKED) 1,000 MG/250 ML BAG IVPB ONE (21:51)
[2017-12-23] MEDS ORDERED: GENTAMICIN SO4 80 MG/2 ML VIAL ONE (21:51)
[2017-12-23 22:05] LABS: ALBUMIN 3.3 g/dl (3.4-5.0); ANION GAP 13 (8-16); BILIRUBIN,TOTAL 0.2 mg/dL (0.2-1.0); BLOOD UREA NITROGEN 64 mg/dL (7-18); CALCIUM 7.8 mg/dL (8.5-10.1); CHLORIDE 95 mmol/L (98-107); CO2 24 mmol/L (21-32); GLUCOSE,RANDOM 95 mg/dL (74-106); POTASSIUM 5.4 mmol/L (3.5-5.1); SGOT/AST 38 U/L (15-37); SGPT/ALT 33 U/L (12-78); SODIUM 132 mmol/L (136-145); TOT PROT 7.3 g/dl (6.4-8.2)
[2017-12-23 22:10] LABS: ALK PHOS 193 U/L (45-117)
[2017-12-23 22:30] LABS: URINE APPEARANCE SLCLOUDY; URINE BILIRUBIN NEGATIVE (<2.0 mg/dL); URINE BLOOD 1+ (NEGATIVE); URINE COLOR YELLOW; URINE GLUCOSE (UA) NEGATIVE (NEGATIVE); URINE KETONE NEGATIVE (NEGATIVE); URINE LEUK ESTERASE NEGATIVE (NEGATIVE); URINE NITRITE NEGATIVE (NEGATIVE); URINE UROBILINOGEN NEGATIVE mg/dL (0.2-1.0)
[2017-12-23 22:30] LABS: CREATININE 9.2 mg/dL (0.7-1.3)
[2017-12-23 22:31] LABS: URINE PROTEIN 2+ (NEGATIVE)
[2017-12-23 22:34] LABS: EPI CELLS RARE /HPF (FEW); URINE BACTERIA RARE /hpf (NONE SEEN)
--- NOTE | 2017-12-24 00:05 | HP ---
PCP: Ban Singh (From [facility]) CHIEF COMPLAINT: Fever, cough HISTORY OF PRESENT ILLNESS: This is a 52 year old man who was sent to the ED from [facility] for evaluation fever and cough. He is unable to provide any history. As per family, he has had decreased appetite recently. Today he has been lethargic. He has a dry cough. He has not been noted to have vomiting or diarrhea. He received Vancomycin with his last HD. PAST MEDICAL HISTORY: ESRD CVA Hypertension Hyperlipidemia PAST SURGICAL HISTORY: Cervical discectomy and fusion AV fistula LUE Allergies No Known Allergies Allergy (Verified 12/23/17 21:00) HOME MEDICATIONS: 3 Medication Instructions Recorded Acetaminophen [Tylenol] 650 mg PO PRN PRN 12/23/17 Ascorbic Acid [Vitamin C -] 500 mg PO DAILY 12/23/17 Aspirin 81 mg PO DAILY 12/23/17 Atorvastatin Ca [Lipitor] 80 mg PO HS 12/23/17 Calcium Acetate [Phoslo -] 667 mg PO DAILY 12/23/17 Labetalol HCl [Normodyne -] 200 mg PO BID 12/23/17 Phenytoin Na Extended [Dilantin -] 200 mg PO DAILY 12/23/17 Phenytoin Na Extended [Dilantin -] 300 mg PO HS 12/23/17 Sertraline HCl [Zoloft -] 50 mg PO DAILY 12/23/17 Vitamin B Comp W-C [Nephro-Masha -] 1 tablet PO DAILY 12/23/17 Social History: Smoking: Never smoked Alcohol: None Drugs: None Recent Travel: No Family History: Unremarkable REVIEW OF SYSTEMS Unable to obtain PHYSICAL EXAMINATION Vital Signs - 24 hr 12/23/17 12/23/17 12/23/17 21:00 22:38 23:26 Temperature 104.1 F H Pulse Rate 89 91 H Respiratory 14 Rate Blood Pressure 215/66 Blood Pressure 172/64 [Right Calf] O2 Sat by Pulse 94 L 96 Oximetry (%) GENERAL: Sleeping, unarousable. HEAD: Normal with no signs of trauma. EYES: Pupils equal, round and reactive to light, extraocular movements unable to be evaluated, sclerae anicteric, conjunctivae clear. EARS, NOSE, THROAT: Ears normal, nares patent, oropharynx clear without exudates. Moist mucous membranes. NECK: Normal range of motion, supple without lymphadenopathy, JVD, or masses. LUNGS: Breath sounds equal, clear to auscultation bilaterally. No wheezes, no crackles. No accessory muscle use. HEART: Regular rate and rhythm, normal S1 and S2 without murmur, rub or gallop. ABDOMEN: Soft, non-distended, normoactive bowel sounds, no masses. No hepatomegaly or splenomegaly. MUSCULOSKELETAL: No bony deformities. UPPER EXTREMITIES: 2+ pulses, warm, well-perfused. No cyanosis. No clubbing. No peripheral edema. LOWER EXTREMITIES: 2+ pulses, warm, well-perfused. No calf tenderness. No peripheral edema. NEUROLOGICAL: Unable to evaluate. PSYCHIATRIC: Unable to evaluate. SKIN: Warm, dry, normal turgor, no rashes or lesions noted, normal capillary refill. Laboratory Results - last 24 hr 12/23/17 12/23/17 12/23/17 21:24 21:24 21:24 WBC RBC Hgb Hct MCV MCH MCHC RDW Plt Count MPV Neutrophils % Lymphocytes % Monocytes % Eosinophils % Basophils % Sodium 132 L Potassium 5.4 H Chloride 95 L Carbon Dioxide 24 Anion Gap 13 BUN 64 H D Creatinine 9.2 H* D Creat Clearance w eGFR 6.06 Random Glucose 95 D Lactic Acid 0.8 Calcium 7.8 L Total Bilirubin 0.2 D AST 38 H D ALT 33 D Alkaline Phosphatase 193 H Creatine Kinase 236 Creatine Kinase Index CK-MB (CK-2) < 1.000 No Result Required. Troponin I Total Protein 7.3 Albumin 3.3 L Urine Color Urine Appearance Urine pH Ur Specific Carlotta Urine Protein Urine Glucose (UA) Urine Ketones Urine Blood Urine Nitrite Urine Bilirubin Urine Urobilinogen Ur Leukocyte Esterase Urine WBC (Auto) Urine RBC (Auto) Ur Epithelial Cells Urine Bacteria Phenytoin 12/23/17 12/23/17 12/23/17 21:31 21:40 22:01 WBC 10.3 H D RBC 3.82 L Hgb 12.4 Hct 36.5 MCV 95.4 MCH 32.4 MCHC 34.0 RDW 13.9 D Plt Count 108 L D MPV 8.2 Neutrophils % 75.2 Lymphocytes % 10.2 D Monocytes % 13.0 H Eosinophils % 1.0 Basophils % 0.6 Sodium Potassium Chloride Carbon Dioxide Anion Gap BUN Creatinine Creat Clearance w eGFR Random Glucose Lactic Acid Calcium Total Bilirubin AST ALT Alkaline Phosphatase Creatine Kinase Creatine Kinase Index CK-MB (CK-2) Troponin I 0.04 D Total Protein Albumin Urine Color Yellow Urine Appearance Slcloudy Urine pH 6.0 Ur Specific Carlotta 1.012 Urine Protein 2+ H Urine Glucose (UA) Negative Urine Ketones Negative Urine Blood 1+ H Urine Nitrite Negative Urine Bilirubin Negative Urine Urobilinogen Negative Ur Leukocyte Esterase Negative Urine WBC (Auto) None Urine RBC (Auto) 1 Ur Epithelial Cells Rare Urine Bacteria Rare Phenytoin 12/23/17 22:01 WBC RBC Hgb Hct MCV MCH MCHC RDW Plt Count MPV Neutrophils % Lymphocytes % Monocytes % Eosinophils % Basophils % Sodium Potassium Chloride Carbon Dioxide Anion Gap BUN Creatinine Creat Clearance w eGFR Random Glucose Lactic Acid Calcium Total Bilirubin AST ALT Alkaline Phosphatase Creatine Kinase Creatine Kinase Index CK-MB (CK-2) Troponin I Total Protein Albumin Urine Color Urine Appearance Urine pH Ur Specific Carlotta Urine Protein Urine Glucose (UA) Urine Ketones Urine Blood Urine Nitrite Urine Bilirubin Urine Urobilinogen Ur Leukocyte Esterase Urine WBC (Auto) Urine RBC (Auto) Ur Epithelial Cells Urine Bacteria Phenytoin 24.5 H ASSESSMENT/PLAN: This is a 52 year old man with a history of ESRD, CVA, hypertension, hyperlipidemia who presented to the ED from [facility] with fever and cough. In the ED, he had a temperature of 104.1, WBC 10.3, Na 132, K 5.4, BUN 69, creatinine 9.2. 1. Acute metabolic encephalopathy secondary to sepsis 2. Sepsis likely secondary to respiratory tract infection - Influenza A and B negative - Rocephin, Zithromax - Vancomycin with HD - Follow up urine, blood cultures - Urine Pneumococcus and Legionella Ag - ID consult - Repeat CXR in AM 3. ESRD wit hyperkalemia, hyponatremia - Nephrology consult for HD 4. Hypertension - Continue Labetalol 5. Hyperlipidemia - Continue Lipitor Visit type - Emergency Visit Emergency Visit: Yes ED Registration Date: 12/23/17 Care time: The patient presented to the Emergency Department on the above date and was hospitalized for further evaluation of their emergent condition. - New Patient This patient is new to me today: Yes Date on this admission: 12/24/17 - Critical Care Critical Care patient: No Hospitalist Screening - Colonoscopy Questionnaire Colonoscopy Questionnaire: Colonoscopy Questionnaire - Patient: 50 - 75 years old and never had a screening colonoscopy: Unknown History of colon or rectal polyps, or CA: No History of IBD, Crohn's disease or UC: No History of abdominal radiation therapy as a child: No - Relative: 1 with colon or rectal CA, or polyps at age 60 or younger: No Colon or rectal CA diagnosed at age 45 or younger: No Multiple relatives with colon or rectal CA: No - Outcome: Screening Result: Negative Screen
[2017-12-24] MEDS ORDERED: IBUPROFEN 800 MG/8 ML IJ IVPB ONE ×2 (00:26→00:27)
[2017-12-24] MEDS ORDERED: ACETAMINOPHEN 325 MG TABLET (FP) PO PRN (01:53)
[2017-12-24] MEDS ORDERED: ONDANSETRON 4 MG/2 ML VIAL IVPUSH PRN (01:54)
[2017-12-24] MEDS ORDERED: ALBUTEROL SO4 0.083% IH SOL 2.5 MG/3 ML VIAL.NEB. NEB PRN (01:54)
[2017-12-24] MEDS ORDERED: SODIUM CHLORIDE 1,000 ML IV SCH (02:00)
[2017-12-24 02:23] VITALS: BMI 23.1
[2017-12-24] MEDS ORDERED: ACETAMINOPHEN 650 MG SUPP.RECT PR ONE (05:07)
[2017-12-24] MEDS ORDERED: ACETAMINOPHEN 1000 MG/100 ML VIAL (NON FORMULARY) IVPB ONE (05:08)
[2017-12-24] MEDS: HEPARIN NA (PORCINE) 5,000 UNITS/ML 1ML VIAL SQ SCH ×3 (05:22→21:25)
[2017-12-24 07:27] LABS: BASO % 0.6 % (0-2.0); EOS % 0.5 % (0-4.5); HEMATOCRIT 38.1 % (35.4-49); HEMOGLOBIN 12.7 GM/dL (11.7-16.9); LYMPH % 7.9 % (8-40); MCH 32.4 pg (25.7-33.7); MCHC 33.4 g/dl (32.0-35.9); MEAN CELL VOLUME 97.1 fl (80-96); MEAN PLT VOLUME 8.6 fl (7.5-11.1); PLATELET COUNT 113 K/MM3 (134-434); RBC 3.92 M/mm3 (4.00-5.60); RDW 14.3 % (11.9-15.9); WHITE BLOOD COUNT 9.8 K/mm3 (4.0-10.0)
[2017-12-24] MEDS ORDERED: PHENYTOIN NA EXTENDED 100 MG CAPSULE (FP) PO SCH ×2 (10:00→22:00)
[2017-12-24] MEDS ORDERED: LABETALOL HCL 200 MG TABLET (FP) PO SCH (10:00)
[2017-12-24] MEDS ORDERED: SERTRALINE HCL 50 MG TABLET (FP) PO SCH (10:00)
[2017-12-24] MEDS: ASCORBIC ACID 500 MG TABLET (FP) PO SCH (10:29)
[2017-12-24] MEDS: VITAMIN B COMP W-C 1 EA TABLET PO SCH (10:29)
[2017-12-24] MEDS: ASPIRIN 81 MG CHEWABLE TABLETS PO SCH (10:29)
[2017-12-24] MEDS: AZITHROMYCIN IVPB 500 MG in DEXTROSE 5%-WATER - 250 ML IVPB SCH (10:30)
[2017-12-24 11:08] LABS: CHLORIDE 96 mmol/L (98-107); POTASSIUM 5.6 mmol/L (3.5-5.1); SODIUM 134 mmol/L (136-145)
[2017-12-24 11:45] LABS: ANION GAP 16 (8-16); BLOOD UREA NITROGEN 75 mg/dL (7-18); CALCIUM 7.8 mg/dL (8.5-10.1); CO2 22 mmol/L (21-32); GLUCOSE,RANDOM 82 mg/dL (74-106); MAGNESIUM 2.2 mg/dL (1.8-2.4); PHOSPHOROUS 7.6 mg/dL (2.5-4.9)
[2017-12-24] MEDS ORDERED: CALCIUM ACETATE 667 MG CAPSULE (FP) PO SCH (12:00)
[2017-12-24 12:49] LABS: CREATININE 10.1 mg/dL (0.7-1.3)
[2017-12-24] MEDS ORDERED: PIPERACILLIN/TAZOB 2.25 GM 2.25 GM/50 ML BAG IVPB SCH (13:00)
--- NOTE | 2017-12-24 13:07 | PN ---
Progress Note (short form) - Note Progress Note: ID consult dictated imp/reccd 52 year old man from [facility], NHR history of cva (2) in DR gaston verbal history of HTN on dialysis for last 3 years via left AVF admitted [place] with [place] and fever sister is present she visits daily he has been coughing for three days on 12/23 he was ordered [place] [facility]- not sure if it was given in our ED he had fever to 104 and cough flu screen was negative he was given vanco/gent/zithromax repeat cxray with left basilar infiltrate he is responsive and able to answer yes/no in [place], opens eyes to name sepsis/fever in NHR suspect HCAP given cough and cxray findings zosyn/zithromax vanco trough in am f/u cultures esrd/hd- per renal Problem List - Problems (1) Sepsis Code(s): A41.9 - SEPSIS, UNSPECIFIED ORGANISM Qualifiers: Sepsis type: sepsis due to unspecified organism Qualified Code(s): A41.9 - Sepsis, unspecified organism (2) Pneumonia Code(s): J18.9 - PNEUMONIA, UNSPECIFIED ORGANISM (3) ESRD (end stage renal disease) on dialysis Code(s): N18.6 - END STAGE RENAL DISEASE; Z99.2 - DEPENDENCE ON RENAL DIALYSIS
[2017-12-24] MEDS: ACETAMINOPHEN 650 MG SUPP.RECT PR PRN (13:12)
--- NOTE | 2017-12-24 13:21 | CON.NEP ---
Consult Consult Specialty:: Nephrology Referred by:: Dr Krause Reason for Consultation:: ESRD - History of Present Illness Chief Complaint: Fever History of Present Illness: This is a 52 year old man who was sent to the ED from [facility] for evaluation fever and cough. He is unable to provide any history. 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, Other (APHASIA) Cardio/Vascular: Yes: HTN Renal/: Yes: Renal Failure, Hemodialysis - Alcohol/Substance Use Hx Alcohol Use: No - Smoking History Smoking history: Unknown if ever smoked Have you smoked in the past 12 months: No Home Medications - Allergies Allergies/Adverse Reactions: Allergies Allergy/AdvReac Type Severity Reaction Status Date / Time No Known Allergies Allergy Verified 12/23/17 21:00 - Home Medications Home Medications: Ambulatory Orders Acetaminophen [Tylenol] 650 mg PO PRN PRN 12/23/17 Ascorbic Acid [Vitamin C -] 500 mg PO DAILY 12/23/17 Aspirin 81 mg PO DAILY 12/23/17 Atorvastatin Ca [Lipitor] 80 mg PO HS 12/23/17 Calcium Acetate [Phoslo -] 667 mg PO DAILY 12/23/17 Labetalol HCl [Normodyne -] 200 mg PO BID 12/23/17 Phenytoin Na Extended [Dilantin -] 200 mg PO DAILY 12/23/17 Phenytoin Na Extended [Dilantin -] 300 mg PO HS 12/23/17 Sertraline HCl [Zoloft -] 50 mg PO DAILY 12/23/17 Vitamin B Comp W-C [Nephro-Masha -] 1 tablet PO DAILY 12/23/17 Family Disease History - Family Disease History Family Disease History: Other: Sister (alive and well) Nephrology Consult - Height Height: 5 ft 4 in - Weight Weight: 134 lb 12.8 oz - BMI Body Mass Index (BMI): 23.1 - Lab Results CBC,BMP: CBC, BMP 12/24/17 06:00 12/24/17 06:00 Anion Gap: Anion Gap Anion Gap 16 (8-16) 12/24/17 06:00 - Imaging Chest X-ray: Image Reviewed EKG: Other (N/A) - Physical Examination Vital Signs: Vital Signs Temperature 100 F H 12/24/17 10:30 Pulse Rate 84 12/24/17 10:30 Respiratory Rate 22 12/24/17 10:30 Blood Pressure 124/69 12/24/17 10:30 O2 Sat by Pulse Oximetry (%) 98 12/24/17 09:00 Cardiovascular: Yes: S1, S2. No: JVD Respiratory: Yes: CTA Bilaterally Gastrointestinal: Yes: Soft. No: Tenderness, Rebound Renal/: No: Bladder Distention Extremities: Yes: Other (AVG in RUE with Thrill and AVF in LUE with bruit) Edema: No Neurological: Yes: Alert, Aphasia, Other Assessment/Plan Impression Pneumonia ESRD with borderline high K HTN S/P CVA with aphasia and SZD Phenytoin level elevation Plan Abx as per ID adjusted for ESRD Await BC and UC results Will arrange for HD to be done tomorrow via the AVG rather than AVF that is in the LUE till usual orders retrieved from the [facility] HD unit Swallowing evaluation Restart some IVF Restart Dilantin when level lower and in therapeutic range Phosphate binder when no longer NPO Thank You Will follow Dr Stewart
[2017-12-24] MEDS ORDERED: SODIUM CHLORIDE 250 ML IV PRN ×2 (13:43→13:47)
--- NOTE | 2017-12-24 14:53 | CONS ---
REQUESTED BY: Ban Singh MD DATE OF CONSULTATION: DATE OF DICTATION: 12/24/2017 HISTORY: This is a 52-year-old man who resides at the [place] [facility]. He has a history of a prior stroke x2, according to his sister who is present at the bedside. He has a history of hypertension and end stage renal disease and is on dialysis. He was sent to the hospital with lethargy and high fever. At the time of transfer he had a temperature of 102.3. His sister sees him daily and she reports he has been coughing for the last 4 days. In the emergency room he was evaluated and he was noted to have a cough. He had a chest x-ray done that showed a left basilar infiltrate. He was given vancomycin, gentamicin and started on Zithromax as well and I was asked to see him for further recommendations. Currently, he has fever but he is arousable. He opens his eyes to his name and he is able to answer yes and no in [place], which his sister reports is the most he is able to do. He is originally from [facility]. He had strokes while he was living there and then came here later. PAST MEDICAL HISTORY: Notable for end stage renal disease, CVA, hypertension, and hyperlipidemia. PAST SURGICAL HISTORY: Notable for a cervical diskectomy infusion, he has AV fistula in his left arm. MEDICATIONS AT THE SHELTER: Include: 1. Aspirin. 2. Calcium acetate. 3. Phenytoin. 4. Atorvastatin. 5. Nephro-Masha E. 6. Acetaminophen. 7. Labetalol. 8. Zoloft. 9. Vitamin C. Yesterday he was ordered vancomycin 1 dose and started on doxycycline. FAMILY HISTORY: Noncontributory. SOCIAL HISTORY: As stated before his family brought him here to this country. There is no history of any cigarette or substance use. His HIV status is not known. There is no history of any travel besides his [place] [facility]. REVIEW OF SYSTEMS: Is as documented with his sister who reports he has had a cough for several days. PHYSICAL EXAMINATION: Vital Signs: His T-Max is 104, current temperature is 100, pulse of 84, blood pressure 124/69, and respiratory rate is 22. HEENT: He is normocephalic. His eyes are anicteric. Neck: Supple. He has no meningeal signs. Lungs: Have diminished breath sounds at the bases. Heart: Regular rate and rhythm. Abdomen: Soft, nontender. He has no distention or pain. Extremities: Without edema. He has a fistula on his left arm. There are no signs of any erythema. LABORATORY DATA: Labs are notable for a white count of 9.8, hemoglobin of 12.7 , and platelets of 113. BUN and creatinine are 75 and 10.1. Urinalysis is negative. LFTs are notable for an alkaline phosphatase of 193. His lactic acid was 0.8. Urine and blood cultures are pending. Influenza screen was done and is negative. Chest x -ray originally was negative. Repeat x-ray done shows a left basilar infiltrate. In summary, this is a 52-year-old man with: 1. Sepsis, fever and a [facility] resident. I suspect HCAP given the couth and chest x-ray findings. We will treat him with Zosyn and Zithromax, and vancomycin trough in the morning and would follow up his cultures. 2. End stage renal disease dialysis per renal. Further recommendations to follow based on his clinical course. YANNI OCONNOR M.D. [id number] SULEMAN
[2017-12-24] MEDS: DEXTROSE 5%-0.45% SALINE 1,000 ML IV SCH (15:39)
[2017-12-24] MEDS ORDERED: METOPROLOL TARTRATE 5 MG/5 ML VIAL IVPB PRN (15:52)
--- NOTE | 2017-12-24 16:26 | PN ---
Progress Note, Physician Chief Complaint: Sepsis History of Present Illness: This is a 52 year old man who was sent to the ED from [facility] for evaluation fever and cough. He is unable to provide any history. As per family, he has had decreased appetite recently. Today he has been lethargic. He has a dry cough. He has not been noted to have vomiting or diarrhea. He received Vancomycin with his last HD. - Current Medication List Current Medications: Active Medications Acetaminophen (Tylenol Suppository -) 650 mg HI Q6H PRN PRN Reason: FEVER Last Admin: 12/24/17 13:12 Dose: 650 mg Albuterol Sulfate (Ventolin 0.083% Nebulizer Soln -) 1 amp NEB Q4H PRN PRN Reason: SHORT OF BREATH/WHEEZING Ascorbic Acid (Vitamin C -) 500 mg PO DAILY [facility] Last Admin: 12/24/17 10:29 Dose: Not Given Aspirin (Asa -) 81 mg PO DAILY [facility] Last Admin: 12/24/17 10:29 Dose: Not Given Atorvastatin Calcium (Lipitor -) 80 mg PO [facility] Heparin Sodium (Porcine) (Heparin -) 5,000 unit SQ TID [facility] Last Admin: 12/24/17 15:39 Dose: 5,000 unit Heparin Sodium (Porcine) (Heparin -) 1,000 unit IVPUSH ONCE ONE Stop: 12/25/17 06:01 Azithromycin 500 mg/ Dextrose 250 mls @ 250 mls/hr IVPB DAILY [facility] Last Admin: 12/24/17 10:30 Dose: 250 mls/hr Piperacillin Sod/Tazobactam (Sod 2.25 gm/ Dextrose) 50 mls @ 100 mls/hr IVPB Q8H-IV TYREE Dextrose/Sodium Chloride (D5-1/2ns -) 1,000 mls @ 50 mls/hr IV ASDIR [facility] Last Admin: 12/24/17 15:39 Dose: 50 mls/hr Sodium Chloride (Normal Saline -) 250 mls @ 3,000 mls/hr IV PRN PRN PRN Reason: Hypotension during Dialysis Stop: 12/25/17 13:43 Metoprolol Tartrate (Lopressor Injection -) 5 mg IVPB Q4H PRN PRN Reason: HYPERTENSION Multivit/Ca Carb/B Cmplx/FA/Prenat (Nephro-Masha -) 1 tablet PO DAILY [facility] Last Admin: 12/24/17 10:29 Dose: Not Given Ondansetron HCl (Zofran Injection) 4 mg IVPUSH Q6H PRN PRN Reason: NAUSEA - Objective Vital Signs: Vital Signs Temperature 100.9 F H 12/24/17 14:48 Pulse Rate 88 12/24/17 14:48 Respiratory Rate 22 12/24/17 14:48 Blood Pressure 134/62 12/24/17 14:48 O2 Sat by Pulse Oximetry (%) 98 12/24/17 09:00 Constitutional: Yes: Well Nourished, No Distress, Calm Cardiovascular: Yes: Regular Rate and Rhythm Respiratory: Yes: Regular Neurological: Yes: Lethargy Labs: CBC, BMP 12/24/17 06:00 12/24/17 06:00 Problem List - Problems (1) ESRD (end stage renal disease) on dialysis Assessment/Plan: -Nephrology consult -dialysis as per renal Code(s): N18.6 - END STAGE RENAL DISEASE; Z99.2 - DEPENDENCE ON RENAL DIALYSIS (2) Pneumonia Assessment/Plan: -ID on board -IV abx -Tylenol for fever > 100.0F -CXR shows left base infiltrate -Bronchodilators -nasal O2 PRN, to keep SpO2 >90% Code(s): J18.9 - PNEUMONIA, UNSPECIFIED ORGANISM (3) Sepsis Assessment/Plan: -daily labs -BC/UC pending -Influenza negative -IVF -IV abx Code(s): A41.9 - SEPSIS, UNSPECIFIED ORGANISM Qualifiers: Sepsis type: sepsis due to unspecified organism Qualified Code(s): A41.9 - Sepsis, unspecified organism (4) Altered mental status, unspecified Assessment/Plan: -metabolic encephalopathy -monitor MS as treatment progresses Code(s): R41.82 - ALTERED MENTAL STATUS, UNSPECIFIED Qualifiers: Altered mental status type: unspecified Qualified Code(s): R41.82 - Altered mental status, unspecified (5) Hypertension Assessment/Plan: -unable to take PO intake at this time -IV metoprolol PRN for SBP>160 mm Hg Code(s): I10 - ESSENTIAL (PRIMARY) HYPERTENSION (6) CVA, old, aphasia Code(s): I69.320 - APHASIA FOLLOWING CEREBRAL INFARCTION Assessment/Plan see problem list
[2017-12-24] MEDS: PIPERACILLIN/TAZOB 2.25 GM 2.25 GM in DEXTROSE 5%-WATER - 50 ML IVPB SCH ×2 (18:24→18:25)
[2017-12-24] MEDS: ATORVASTATIN CA 80 MG TABLET (FP) PO SCH (21:26)
--- NOTE | 2017-12-24 21:31 | EKG ---
Test Reason : Blood Pressure : / mmHG Vent. Rate : 094 BPM Atrial Rate : 094 BPM P-R Int : 128 ms QRS Dur : 080 ms QT Int : 364 ms P-R-T Axes : 076 047 043 degrees QTc Int : 455 ms NORMAL SINUS RHYTHM NORMAL ECG WHEN COMPARED WITH ECG OF 30-AUG-2017 22:31, NO SIGNIFICANT CHANGE WAS FOUND Confirmed by JEAN CARLOS SANDOVAL MD ([id number]) on 12/24/2017 9:30:52 PM Referred By: Confirmed By:JEAN CARLOS SANDOVAL MD
[2017-12-25] MEDS: PIPERACILLIN/TAZOB 2.25 GM 2.25 GM in DEXTROSE 5%-WATER - 50 ML IVPB SCH ×4 (02:31→17:42)
[2017-12-25] MEDS: HEPARIN NA (PORCINE) 5,000 UNITS/ML 1ML VIAL SQ SCH ×3 (06:42→22:01)
[2017-12-25 08:17] LABS: BASO % 0.5 % (0-2.0); EOS % 0.2 % (0-4.5); HEMATOCRIT 34.8 % (35.4-49); HEMOGLOBIN 11.6 GM/dL (11.7-16.9); LYMPH % 12.8 % (8-40); MCH 32.3 pg (25.7-33.7); MCHC 33.5 g/dl (32.0-35.9); MEAN CELL VOLUME 96.4 fl (80-96); MEAN PLT VOLUME 8.6 fl (7.5-11.1); MONO % 10.1 % (3.8-10.2); NEUT % 76.4 % (42.8-82.8); PLATELET COUNT 125 K/MM3 (134-434); RBC 3.61 M/mm3 (4.00-5.60); WHITE BLOOD COUNT 11.8 K/mm3 (4.0-10.0)
[2017-12-25 08:50] LABS: ALBUMIN 2.9 g/dl (3.4-5.0); ANION GAP 21 (8-16); BLOOD UREA NITROGEN 104 mg/dL (7-18); CHLORIDE 93 mmol/L (98-107); CO2 21 mmol/L (21-32); GLUCOSE,RANDOM 102 mg/dL (74-106); SODIUM 135 mmol/L (136-145)
[2017-12-25 09:07] LABS: ALK PHOS 173 U/L (45-117); BILIRUBIN,TOTAL 0.5 mg/dL (0.2-1.0); CALCIUM 7.3 mg/dL (8.5-10.1); SGOT/AST 51 U/L (15-37); SGPT/ALT 42 U/L (12-78); TOT PROT 7.1 g/dl (6.4-8.2)
--- NOTE | 2017-12-25 09:37 | PN ---
Progress Note (short form) - Note Progress Note: fevers down more alert this am Vital Signs Period Temp Pulse Resp BP Sys/Hu Pulse Ox Last 24 Hr 98.4 F-100.9 F 79-88 20-22 124-165/62-77 99 cor-rrr lungs scattered rhonchi abd soft,nt ext no edema CBC, BMP 12/25/17 07:55 12/25/17 07:55 Microbiology 12/23/17 21:40 Blood - Peripheral Venous Blood Culture - Preliminary NO GROWTH OBTAINED AFTER 24 HOURS, INCUBATION TO CONTINUE FOR 4 DAYS. 12/23/17 21:24 Blood - Peripheral Venous Blood Culture - Preliminary NO GROWTH OBTAINED AFTER 24 HOURS, INCUBATION TO CONTINUE FOR 4 DAYS. 12/23/17 22:01 Nasopharyngeal Swab Influenza Types A,B Antigen (MEREDITH) - Final 12/23/17 22:01 Nasopharyngeal Swab - Final a/p sepsis/fever in NHR suspect HCAP given cough and cxray findings-left base infiltrate zosyn/zithromax vanco trough today f/u cultures fevers trending down esrd/hd- per renal Problem List - Problems (1) Sepsis Code(s): A41.9 - SEPSIS, UNSPECIFIED ORGANISM Qualifiers: Sepsis type: sepsis due to unspecified organism Qualified Code(s): A41.9 - Sepsis, unspecified organism (2) Pneumonia Code(s): J18.9 - PNEUMONIA, UNSPECIFIED ORGANISM (3) ESRD (end stage renal disease) on dialysis Code(s): N18.6 - END STAGE RENAL DISEASE; Z99.2 - DEPENDENCE ON RENAL DIALYSIS
[2017-12-25 09:48] LABS: CREATININE 12.4 mg/dL (0.7-1.3); POTASSIUM 6.1 mmol/L (3.5-5.1)
--- NOTE | 2017-12-25 10:10 | CONSULT ---
Admitting History and Physical - Primary Care Physician PCP: Ban Singh - Admission History of Present Illness: Per EMR: This is a 52 year old man with a history of ESRD, CVA, hypertension, hyperlipidemia who presented to the ED from [facility] with fever and cough. In the ED, he had a temperature of 104.1, WBC 10.3, Na 132, K 5.4, BUN 69, creatinine 9.2. 1. Acute metabolic encephalopathy secondary to sepsis 2. Sepsis likely secondary to respiratory tract infection Per ID:sepsis/fever suspect HCAP given cough and cxray findings-left base infiltrate Last seen by me 11/09/17 for an opd MBS. Mild silent aspiration on thin liquid and pharyngeal residue after swallow completed. 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 REC:mouth care before meals. Soft,chopped food,nectar thick liquid rec,2 swallows per bite, effortful swallow, cough every few bites to clear airway. 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 Mild silent aspiration on thin liquid and pharyngeal residue after swallow completed. . REC: mouth care before meals. Soft,chopped food,nectar thick liquid rec,2 swallows per bite, effortful swallow, cough every few bites to clear airway. Swallowing tx at SC) - General Mental Status: Alert and Oriented (oriented to hospital,name. Language barrier.) , Awake and Alert, Able to Follow Commands, Flat Affect Attention: Distractible Ability to Follow Directions: Fair Head/Neck Control: Fair - Hearing Hearing: Functional Hearing: Normal Hearing Aide: No With Patient: No Speech Evaluation - Communication Primary Language: CYMRAES Communication: Yes: Simple Responses, Dysarthria, Language Barrier Oral Expression Ability: Yes: Moderate Impairment - Speech Production Able to Make Needs Known: Yes: Moderately Impaired Intelligibility: Yes: Moderately Impaired - Speech Characteristics Voice Loudness: Mildly Soft/Quiet Voice Pitch: Yes: Normal Voice Phonatory-based Quality: Yes: Dysphonia Speech Pattern: Impaired Speech Clarity: < 50% Nasal Resonance: Hypernasal Articulation: Yes: Imprecise Rate of Speech: Too Slow - Language/Auditory Comprehension Follows: Yes: 1 Stage Simple Commands Observation: Comprehends Conversational Speech: Yes - Swallow Evaluation/Bedside Assessment Current Nutritional Intake: NPO Oral Secretions: Yes: Tongue Coated Dentition: Yes: Adequate Facial Symmetry at Rest: Symmetrical Facial Symmetry on Retraction: Symmetrical Jaw Position: Open at Rest Against Resistance Opening: Weak Against Resistance Closing: Weak Pucker Lips: Weak Smile: Weak Lingual Movement: Symmetric, Reduced Tip Elevation, Reduced Protrusion Lingual Speed of Movement: Reduced Lingual Movement Strgth Against Opposition: Reduced Velopharyngeal Movement: Hypernasality Laryngeal Elevation: Impaired Laryngeal Movement: Reduced Excursion, Labored,delay initiation, Reduced Velocity Bolus Size: Small Labial Seal: Impaired Bilaterally Chewing: Impaired Oral Prep Time: Increased A-P Transit: Impaired Timing of Swallow: Delayed Coughing/Throat Clear: No Change in Voice: No Recommendations - Speech Evaluation, Impression/Plan Impression: Dysarthria. Dysphagia. Seen in HD. Language barrier.MRI 2017-h/o mult lacunar infarcts. MBS 11/19. Apiration on thin liquid/stasis. - Dysphagia Impressions/Plan Swallowing Skills: Impaired Dysphagia Impressions: Moderate Impairment, Suspect Aspiration *Silent aspiration: cannot be R/O at bedside Dysphagia Treatment Plan: Chin Tuck/Down, 1/2 tsp. at a time, Elevate HOB during feed, Other (tell pt to swallow HARD, TWICE per 1/2 tsp, alteernate with sip of NT liquid. Coughg every few bites to clear airway.) Recommendations: Modified Barium Swallow (likely t'mw. at HD today and fairly weak.) - Recommendations Diet Consistency: Dysphagia Pureed, Other (PO diet when sufficiently alert and strong enough.) Medication Administration: Crushed with applesauce Liquids: [place] Thick (on tsp)
[2017-12-25] MEDS: ASPIRIN 81 MG CHEWABLE TABLETS PO SCH (10:11)
[2017-12-25] MEDS: VITAMIN B COMP W-C 1 EA TABLET PO SCH (10:11)
[2017-12-25] MEDS: ASCORBIC ACID 500 MG TABLET (FP) PO SCH (10:12)
[2017-12-25] MEDS: AZITHROMYCIN IVPB 500 MG in DEXTROSE 5%-WATER - 250 ML IVPB SCH ×2 (10:12→16:33)
[2017-12-25] MEDS ORDERED: HEPARIN NA (PORCINE) 5,000 UNITS/ML 1ML VIAL IVPUSH ONE (11:00)
--- NOTE | 2017-12-25 12:34 | PN ---
Progress Note, Physician Chief Complaint: patient seen in HD seeing him for the first time sleeping during HD spoke to family member in detail and who thinks patient is slightlybetter today then yesterday currently NPO jared colunga on board iv abx for HCAP - Current Medication List Current Medications: Active Medications Acetaminophen (Tylenol Suppository -) 650 mg [place] Q6H PRN PRN Reason: FEVER Last Admin: 12/24/17 13:12 Dose: 650 mg Albuterol Sulfate (Ventolin 0.083% Nebulizer Soln -) 1 amp NEB Q4H PRN PRN Reason: SHORT OF BREATH/WHEEZING Ascorbic Acid (Vitamin C -) 500 mg PO DAILY [facility] Last Admin: 12/25/17 10:12 Dose: Not Given Aspirin (Asa -) 81 mg PO DAILY [facility] Last Admin: 12/25/17 10:11 Dose: Not Given Atorvastatin Calcium (Lipitor -) 80 mg PO HS [facility] Last Admin: 12/24/17 21:26 Dose: Not Given Heparin Sodium (Porcine) (Heparin -) 5,000 unit SQ TID [facility] Last Admin: 12/25/17 06:42 Dose: 5,000 unit Azithromycin 500 mg/ Dextrose 250 mls @ 250 mls/hr IVPB DAILY [facility] Last Admin: 12/25/17 10:12 Dose: Not Given Piperacillin Sod/Tazobactam (Sod 2.25 gm/ Dextrose) 50 mls @ 100 mls/hr IVPB Q8H-IV [facility] Last Admin: 12/25/17 10:12 Dose: Not Given Dextrose/Sodium Chloride (D5-1/2ns -) 1,000 mls @ 50 mls/hr IV ASDIR [facility] Last Admin: 12/24/17 15:39 Dose: 50 mls/hr Sodium Chloride (Normal Saline -) 250 mls @ 3,000 mls/hr IV PRN PRN PRN Reason: Hypotension during Dialysis Stop: 12/25/17 13:43 Metoprolol Tartrate (Lopressor Injection -) 5 mg IVPB Q4H PRN PRN Reason: HYPERTENSION Multivit/Ca Carb/B Cmplx/FA/Prenat (Nephro-Masha -) 1 tablet PO DAILY [facility] Last Admin: 12/25/17 10:11 Dose: Not Given Ondansetron HCl (Zofran Injection) 4 mg IVPUSH Q6H PRN PRN Reason: NAUSEA - Objective Vital Signs: Vital Signs Temperature 98.2 F 12/25/17 10:15 Pulse Rate 94 H 12/25/17 11:50 Respiratory Rate 18 12/25/17 11:50 Blood Pressure 150/63 12/25/17 11:50 O2 Sat by Pulse Oximetry (%) 99 12/24/17 21:00 Constitutional: Yes: Calm Cardiovascular: Yes: Regular Rate and Rhythm, S1, S2 Respiratory: Yes: Diminished (on left side) Extremities: Yes: Other Edema: No Labs: CBC, BMP 12/25/17 07:55 12/25/17 07:55 Problem List - Problems (1) Pneumonia Assessment/Plan: NPO jared nolan iv abx for HCAP leukocytosis noted tmax yesterday evening was 100.4 no more fever after that Code(s): J18.9 - PNEUMONIA, UNSPECIFIED ORGANISM (2) ESRD (end stage renal disease) on dialysis Assessment/Plan: HD per renal Code(s): N18.6 - END STAGE RENAL DISEASE; Z99.2 - DEPENDENCE ON RENAL DIALYSIS (3) Hypertension Assessment/Plan: oral meds on hold for now iv metoprolol Code(s): I10 - ESSENTIAL (PRIMARY) HYPERTENSION (4) CVA, old, aphasia Assessment/Plan: dvt ppx Code(s): I69.320 - APHASIA FOLLOWING CEREBRAL INFARCTION
[2017-12-25] MEDS: DEXTROSE 5%-0.45% SALINE 1,000 ML IV SCH (15:10)
--- NOTE | 2017-12-25 16:26 | PN ---
Progress Note, Physician History of Present Illness: Pt seen and examined at bedside. He is currently getting HD. - Current Medication List Current Medications: Active Medications Acetaminophen (Tylenol Suppository -) 650 mg [place] Q6H PRN PRN Reason: FEVER Last Admin: 12/24/17 13:12 Dose: 650 mg Albuterol Sulfate (Ventolin 0.083% Nebulizer Soln -) 1 amp NEB Q4H PRN PRN Reason: SHORT OF BREATH/WHEEZING Ascorbic Acid (Vitamin C -) 500 mg PO DAILY [facility] Last Admin: 12/25/17 10:12 Dose: Not Given Aspirin (Asa -) 81 mg PO DAILY [facility] Last Admin: 12/25/17 10:11 Dose: Not Given Atorvastatin Calcium (Lipitor -) 80 mg PO HS [facility] Last Admin: 12/24/17 21:26 Dose: Not Given Heparin Sodium (Porcine) (Heparin -) 5,000 unit SQ TID [facility] Last Admin: 12/25/17 15:25 Dose: 5,000 unit Azithromycin 500 mg/ Dextrose 250 mls @ 250 mls/hr IVPB DAILY [facility] Last Admin: 12/25/17 10:12 Dose: Not Given Piperacillin Sod/Tazobactam (Sod 2.25 gm/ Dextrose) 50 mls @ 100 mls/hr IVPB Q8H-IV [facility] Last Admin: 12/25/17 15:25 Dose: 100 mls/hr Dextrose/Sodium Chloride (D5-1/2ns -) 1,000 mls @ 50 mls/hr IV ASDIR [facility] Last Admin: 12/24/17 15:39 Dose: 50 mls/hr Metoprolol Tartrate (Lopressor Injection -) 5 mg IVPB Q4H PRN PRN Reason: HYPERTENSION Multivit/Ca Carb/B Cmplx/FA/Prenat (Nephro-Masha -) 1 tablet PO DAILY [facility] Last Admin: 12/25/17 10:11 Dose: Not Given Ondansetron HCl (Zofran Injection) 4 mg IVPUSH Q6H PRN PRN Reason: NAUSEA - Objective Vital Signs: Vital Signs Temperature 98.8 F 12/25/17 15:22 Pulse Rate 101 H 12/25/17 15:22 Respiratory Rate 20 12/25/17 15:22 Blood Pressure 139/69 12/25/17 15:22 O2 Sat by Pulse Oximetry (%) 99 12/24/17 21:00 Constitutional: Yes: Calm Eyes: Yes: Conjunctiva Clear HENT: Yes: Atraumatic Cardiovascular: Yes: S1, S2 Respiratory: Yes: Rhonchi Gastrointestinal: Yes: Soft Genitourinary: Yes: Incontinence Musculoskeletal: Yes: Muscle Weakness Edema: Yes Edema: LLE: Trace, RLE: Trace Neurological: Yes: Pre-Existing Deficit Labs: CBC, BMP 12/25/17 07:55 12/25/17 07:55 Problem List - Problems (1) ESRD (end stage renal disease) on dialysis Code(s): N18.6 - END STAGE RENAL DISEASE; Z99.2 - DEPENDENCE ON RENAL DIALYSIS (2) Pneumonia Code(s): J18.9 - PNEUMONIA, UNSPECIFIED ORGANISM (3) Sepsis Code(s): A41.9 - SEPSIS, UNSPECIFIED ORGANISM Qualifiers: Sepsis type: sepsis due to unspecified organism Qualified Code(s): A41.9 - Sepsis, unspecified organism Assessment/Plan Current Medications Generic Name Dose Route Start Last Admin Trade Name Freq PRN Reason Stop Dose Admin Acetaminophen 650 mg 12/24/17 12:57 12/24/17 13:12 Tylenol Suppository - [place] 650 mg Q6H PRN Administration FEVER Albuterol Sulfate 1 amp 12/24/17 01:54 Ventolin 0.083% Nebulizer Soln - NEB Q4H PRN SHORT OF BREATH/WHEEZING Ascorbic Acid 500 mg 12/24/17 10:00 12/25/17 10:12 Vitamin C - PO Not Given DAILY [facility] Aspirin 81 mg 12/24/17 10:00 12/25/17 10:11 Asa - PO Not Given DAILY [facility] Atorvastatin Calcium 80 mg 12/24/17 22:00 12/24/17 21:26 Lipitor - PO Not Given HS [facility] Heparin Sodium (Porcine) 5,000 unit 12/24/17 06:00 12/25/17 15:25 Heparin - SQ 5,000 unit TID [facility] Administration Azithromycin 500 mg/ Dextrose 250 mls @ 250 mls/hr 12/24/17 10:00 12/25/17 10 :12 IVPB Not Given DAILY [facility] Piperacillin Sod/Tazobactam 50 mls @ 100 mls/hr 12/24/17 13:00 12/25/17 15:25 Sod 2.25 gm/ Dextrose IVPB 100 mls/hr Q8H-IV [facility] Administration Dextrose/Sodium Chloride 1,000 mls @ 50 mls/hr 12/24/17 13:45 12/24/17 15:39 D5-1/2ns - IV 50 mls/hr ASDIR [facility] Administration Metoprolol Tartrate 5 mg 12/24/17 15:52 Lopressor Injection - IVPB Q4H PRN HYPERTENSION Multivit/Ca Carb/B Cmplx/FA/Prenat 1 tablet 12/24/17 10:00 12/25/17 10:11 Nephro-Masha - PO Not Given DAILY [facility] Ondansetron HCl 4 mg 12/24/17 01:54 Zofran Injection IVPUSH Q6H PRN NAUSEA Impression 1. ESRD 2. chol 3. hx CVA 4. HTN 5. altered mental status 6. failure to thrive 7. hyperkalemia 8. PNA 9. Sepsis Plan - will arrange for HD today - will treat potassium with HD - cont abx - can stop fluids once appetite improves - repeat labs in am - discussed with family
[2017-12-25] MEDS: ACETAMINOPHEN 650 MG SUPP.RECT PR PRN (17:51)
[2017-12-25] MEDS ORDERED: PT OWN MED DRAWER 7, Y5N ONE ×2 (18:10→19:25)
[2017-12-25] MEDS: SODIUM CHLORIDE 1,000 ML IV SCH (22:00)
[2017-12-25] MEDS: ATORVASTATIN CA 80 MG TABLET (FP) PO SCH (22:45)
[2017-12-26] MEDS: PIPERACILLIN/TAZOB 2.25 GM 2.25 GM in DEXTROSE 5%-WATER - 50 ML IVPB SCH ×3 (01:35→17:56)
[2017-12-26] MEDS ORDERED: PT OWN MED DRAWER 7, Y5N ONE ×3 (01:51→17:55)
[2017-12-26] MEDS: ACETAMINOPHEN 650 MG SUPP.RECT PR PRN (02:07)
[2017-12-26 06:07] LABS: HBsAG SCREEN Negative (Negative)
[2017-12-26] MEDS: HEPARIN NA (PORCINE) 5,000 UNITS/ML 1ML VIAL SQ SCH ×3 (06:20→21:17)
[2017-12-26] MEDS: AZITHROMYCIN IVPB 500 MG in DEXTROSE 5%-WATER - 250 ML IVPB SCH (11:36)
[2017-12-26] MEDS: VITAMIN B COMP W-C 1 EA TABLET PO SCH (11:36)
[2017-12-26] MEDS: ASCORBIC ACID 500 MG TABLET (FP) PO SCH (11:36)
[2017-12-26] MEDS: ASPIRIN 81 MG CHEWABLE TABLETS PO SCH (11:36)
--- NOTE | 2017-12-26 13:51 | PN ---
Progress Note, Physician Chief Complaint: patient seen and examined in the room more awake today temp of 100.6 - Current Medication List Current Medications: Active Medications Acetaminophen (Tylenol Suppository -) 650 mg NE Q6H PRN PRN Reason: FEVER Last Admin: 12/26/17 02:07 Dose: 650 mg Albuterol Sulfate (Ventolin 0.083% Nebulizer Soln -) 1 amp NEB Q4H PRN PRN Reason: SHORT OF BREATH/WHEEZING Ascorbic Acid (Vitamin C -) 500 mg PO DAILY [facility] Last Admin: 12/26/17 11:36 Dose: Not Given Aspirin (Asa -) 81 mg PO DAILY [facility] Last Admin: 12/26/17 11:36 Dose: Not Given Atorvastatin Calcium (Lipitor -) 80 mg PO HS [facility] Last Admin: 12/25/17 22:45 Dose: Not Given Heparin Sodium (Porcine) (Heparin -) 5,000 unit SQ TID [facility] Last Admin: 12/26/17 06:20 Dose: 5,000 unit Azithromycin 500 mg/ Dextrose 250 mls @ 250 mls/hr IVPB DAILY [facility] Last Admin: 12/26/17 11:36 Dose: 250 mls/hr Dextrose/Sodium Chloride (D5-1/2ns -) 1,000 mls @ 50 mls/hr IV ASDIR [facility] Last Admin: 12/25/17 15:10 Dose: Not Given Piperacillin Sod/Tazobactam (Sod 2.25 gm/ Dextrose) 50 mls @ 100 mls/hr IVPB Q8H-IV [facility] Last Admin: 12/26/17 11:35 Dose: 100 mls/hr Sodium Chloride (Normal Saline -) 1,000 mls @ 50 mls/hr IV ASDIR [facility] Stop: 12/26/17 18:16 Last Admin: 12/25/17 22:00 Dose: 50 mls/hr Metoprolol Tartrate (Lopressor Injection -) 5 mg IVPB Q4H PRN PRN Reason: HYPERTENSION Multivit/Ca Carb/B Cmplx/FA/Prenat (Nephro-Masha -) 1 tablet PO DAILY [facility] Last Admin: 12/26/17 11:36 Dose: Not Given Ondansetron HCl (Zofran Injection) 4 mg IVPUSH Q6H PRN PRN Reason: NAUSEA - Objective Vital Signs: Vital Signs Temperature 100.6 F H 12/26/17 13:14 Pulse Rate 95 H 12/26/17 13:14 Respiratory Rate 19 12/26/17 13:14 Blood Pressure 160/79 12/26/17 13:14 O2 Sat by Pulse Oximetry (%) 99 12/25/17 21:00 Constitutional: Yes: Calm Cardiovascular: Yes: Regular Rate and Rhythm, S1, S2 Respiratory: Yes: Diminished (at the bases) Gastrointestinal: Yes: Normal Bowel Sounds, Soft Edema: No Labs: CBC, BMP 12/25/17 07:55 12/25/17 07:55 Problem List - Problems (1) Pneumonia Assessment/Plan: NPO jared nolan noted will give trial of food and monitor for and congestion iv abx for HCAP leukocytosis noted tmax yesterday evening was 100.4 no more fever after that Code(s): J18.9 - PNEUMONIA, UNSPECIFIED ORGANISM (2) ESRD (end stage renal disease) on dialysis Assessment/Plan: HD per renal Code(s): N18.6 - END STAGE RENAL DISEASE; Z99.2 - DEPENDENCE ON RENAL DIALYSIS (3) Hypertension Assessment/Plan: oral meds on hold for now iv metoprolol Code(s): I10 - ESSENTIAL (PRIMARY) HYPERTENSION (4) CVA, old, aphasia Assessment/Plan: dvt ppx Code(s): I69.320 - APHASIA FOLLOWING CEREBRAL INFARCTION
[2017-12-26] MEDS: DEXTROSE 5%-0.45% SALINE 1,000 ML IV SCH ×2 (15:10→23:16)
--- NOTE | 2017-12-26 15:26 | PN ---
Progress Note (short form) - Note Progress Note: fevers down more alert this am Vital Signs Period Temp Pulse Resp BP Sys/Hu Pulse Ox Last 24 Hr 99.5 F-101.8 F 92-101 19-20 126-161/60-85 99 cor-rrr lungs decreased bs at bases abd soft,nt ext no edema CBC, BMP 12/25/17 07:55 12/25/17 07:55 Microbiology 12/23/17 21:40 Blood - Peripheral Venous Blood Culture - Preliminary NO GROWTH OBTAINED AFTER 48 HOURS, INCUBATION TO CONTINUE FOR 3 DAYS. 12/23/17 21:24 Blood - Peripheral Venous Blood Culture - Preliminary NO GROWTH OBTAINED AFTER 48 HOURS, INCUBATION TO CONTINUE FOR 3 DAYS. 12/23/17 22:01 Urine - Urine - Catheterized Urine Culture - Final NO GROWTH OBTAINED 12/23/17 22:01 Nasopharyngeal Swab Influenza Types A,B Antigen (MEREDITH) - Final 12/23/17 22:01 Nasopharyngeal Swab - Final a/p sepsis/fever in NHR suspect HCAP given cough and cxray findings-left base infiltrate zosyn/zithromax cultures, continue antibiotics esrd/hd- per renal Problem List - Problems (1) Sepsis Code(s): A41.9 - SEPSIS, UNSPECIFIED ORGANISM Qualifiers: Sepsis type: sepsis due to unspecified organism Qualified Code(s): A41.9 - Sepsis, unspecified organism (2) Pneumonia Code(s): J18.9 - PNEUMONIA, UNSPECIFIED ORGANISM (3) ESRD (end stage renal disease) on dialysis Code(s): N18.6 - END STAGE RENAL DISEASE; Z99.2 - DEPENDENCE ON RENAL DIALYSIS
--- NOTE | 2017-12-26 17:41 | PN ---
Progress Note, Physician History of Present Illness: Pt seen and examined at bedside. He is more arousable today. - Current Medication List Current Medications: Active Medications Acetaminophen (Tylenol Suppository -) 650 mg [place] Q6H PRN PRN Reason: FEVER Last Admin: 12/26/17 02:07 Dose: 650 mg Albuterol Sulfate (Ventolin 0.083% Nebulizer Soln -) 1 amp NEB Q4H PRN PRN Reason: SHORT OF BREATH/WHEEZING Ascorbic Acid (Vitamin C -) 500 mg PO DAILY [facility] Last Admin: 12/26/17 11:36 Dose: Not Given Aspirin (Asa -) 81 mg PO DAILY [facility] Last Admin: 12/26/17 11:36 Dose: Not Given Atorvastatin Calcium (Lipitor -) 80 mg PO HS [facility] Last Admin: 12/25/17 22:45 Dose: Not Given Heparin Sodium (Porcine) (Heparin -) 5,000 unit SQ TID [facility] Last Admin: 12/26/17 15:13 Dose: 5,000 unit Azithromycin 500 mg/ Dextrose 250 mls @ 250 mls/hr IVPB DAILY [facility] Last Admin: 12/26/17 11:36 Dose: 250 mls/hr Dextrose/Sodium Chloride (D5-1/2ns -) 1,000 mls @ 50 mls/hr IV ASDIR [facility] Last Admin: 12/25/17 15:10 Dose: Not Given Piperacillin Sod/Tazobactam (Sod 2.25 gm/ Dextrose) 50 mls @ 100 mls/hr IVPB Q8H-IV [facility] Last Admin: 12/26/17 11:35 Dose: 100 mls/hr Sodium Chloride (Normal Saline -) 1,000 mls @ 50 mls/hr IV ASDIR [facility] Stop: 12/26/17 18:16 Last Admin: 12/25/17 22:00 Dose: 50 mls/hr Metoprolol Tartrate (Lopressor Injection -) 5 mg IVPB Q4H PRN PRN Reason: HYPERTENSION Multivit/Ca Carb/B Cmplx/FA/Prenat (Nephro-Masha -) 1 tablet PO DAILY [facility] Last Admin: 12/26/17 11:36 Dose: Not Given Ondansetron HCl (Zofran Injection) 4 mg IVPUSH Q6H PRN PRN Reason: NAUSEA - Objective Vital Signs: Vital Signs Temperature 100.6 F H 12/26/17 13:14 Pulse Rate 95 H 12/26/17 13:14 Respiratory Rate 19 12/26/17 13:14 Blood Pressure 160/79 12/26/17 13:14 O2 Sat by Pulse Oximetry (%) 99 12/25/17 21:00 Constitutional: Yes: Calm Eyes: Yes: Conjunctiva Clear HENT: Yes: Atraumatic Cardiovascular: Yes: S1, S2 Respiratory: Yes: On Nasal O2 Gastrointestinal: Yes: Soft Genitourinary: Yes: Incontinence Musculoskeletal: Yes: Muscle Weakness Neurological: Yes: Lethargy Labs: CBC, BMP 12/25/17 07:55 12/25/17 07:55 - ....Imaging Chest X-ray: Report Reviewed Problem List - Problems (1) ESRD (end stage renal disease) on dialysis Code(s): N18.6 - END STAGE RENAL DISEASE; Z99.2 - DEPENDENCE ON RENAL DIALYSIS (2) Pneumonia Code(s): J18.9 - PNEUMONIA, UNSPECIFIED ORGANISM (3) Sepsis Code(s): A41.9 - SEPSIS, UNSPECIFIED ORGANISM Qualifiers: Sepsis type: sepsis due to unspecified organism Qualified Code(s): A41.9 - Sepsis, unspecified organism Assessment/Plan Current Medications Generic Name Dose Route Start Last Admin Trade Name Freq PRN Reason Stop Dose Admin Acetaminophen 650 mg 12/24/17 12:57 12/26/17 02:07 Tylenol Suppository - [place] 650 mg Q6H PRN Administration FEVER Albuterol Sulfate 1 amp 12/24/17 01:54 Ventolin 0.083% Nebulizer Soln - NEB Q4H PRN SHORT OF BREATH/WHEEZING Ascorbic Acid 500 mg 12/24/17 10:00 12/26/17 11:36 Vitamin C - PO Not Given DAILY [facility] Aspirin 81 mg 12/24/17 10:00 12/26/17 11:36 Asa - PO Not Given DAILY [facility] Atorvastatin Calcium 80 mg 12/24/17 22:00 12/25/17 22:45 Lipitor - PO Not Given HS [facility] Heparin Sodium (Porcine) 5,000 unit 12/24/17 06:00 12/26/17 15:13 Heparin - SQ 5,000 unit TID [facility] Administration Azithromycin 500 mg/ Dextrose 250 mls @ 250 mls/hr 12/24/17 10:00 12/26/17 11 :36 IVPB 250 mls/hr DAILY [facility] Administration Dextrose/Sodium Chloride 1,000 mls @ 50 mls/hr 12/24/17 13:45 12/25/17 15:10 D5-1/2ns - IV Not Given ASDIR [facility] Piperacillin Sod/Tazobactam 50 mls @ 100 mls/hr 12/25/17 18:15 12/26/17 11:35 Sod 2.25 gm/ Dextrose IVPB 100 mls/hr Q8H-IV [facility] Administration Sodium Chloride 1,000 mls @ 50 mls/hr 12/25/17 18:15 12/25/17 22:00 Normal Saline - IV 12/26/17 18:16 50 mls/hr ASDIR [facility] Administration Metoprolol Tartrate 5 mg 12/24/17 15:52 Lopressor Injection - IVPB Q4H PRN HYPERTENSION Multivit/Ca Carb/B Cmplx/FA/Prenat 1 tablet 12/24/17 10:00 12/26/17 11:36 Nephro-Masha - PO Not Given DAILY [facility] Ondansetron HCl 4 mg 12/24/17 01:54 Zofran Injection IVPUSH Q6H PRN NAUSEA Impression 1. ESRD 2. chol 3. hx CVA 4. HTN 5. altered mental status 6. failure to thrive 7. hyperkalemia 8. PNA 9. Sepsis Plan - HD in am - orders written - cxr reviewed - cont abx - swallow eval - repeat labs on hd tomorrow
[2017-12-26] MEDS: LABETALOL HCL 200 MG TABLET (FP) PO SCH (18:33)
[2017-12-26] MEDS: SODIUM CHLORIDE 1,000 ML IV SCH (18:38)
[2017-12-26] MEDS: ATORVASTATIN CA 80 MG TABLET (FP) PO SCH (21:18)
[2017-12-27 00:11] LABS: HBSAG SCREEN Negative (Negative); HEP A AB, IGM Negative (Negative); HEP B CORE AB, TOT Positive (Negative)
[2017-12-27] MEDS ORDERED: PT OWN MED DRAWER 7, Y5N ONE ×2 (01:25→09:24)
[2017-12-27] MEDS: ACETAMINOPHEN 650 MG SUPP.RECT PR PRN (02:21)
[2017-12-27] MEDS: PIPERACILLIN/TAZOB 2.25 GM 2.25 GM in DEXTROSE 5%-WATER - 50 ML IVPB SCH ×3 (02:22→17:36)
[2017-12-27] MEDS: HEPARIN NA (PORCINE) 5,000 UNITS/ML 1ML VIAL SQ SCH ×3 (05:32→22:00)
[2017-12-27] MEDS: VITAMIN B COMP W-C 1 EA TABLET PO SCH (09:35)
[2017-12-27] MEDS: ASPIRIN 81 MG CHEWABLE TABLETS PO SCH (09:35)
[2017-12-27] MEDS: ASCORBIC ACID 500 MG TABLET (FP) PO SCH (09:35)
[2017-12-27] MEDS: AZITHROMYCIN IVPB 500 MG in DEXTROSE 5%-WATER - 250 ML IVPB SCH (09:35)
[2017-12-27] MEDS: LABETALOL HCL 200 MG TABLET (FP) PO SCH ×2 (09:35→22:00)
--- NOTE | 2017-12-27 10:36 | PN ---
Progress Note, Physician Chief Complaint: AWAKE RESPONDING MINIMALLY WHICH IS BASELINE FOR HIM NO ACUTE DISTRESS AT THIS TIME CHART AND NOTES REVIEWED THIS IS MY FIRST ENCOUNTER WITH THIS PATIENT ON THIS ADMISSION - Current Medication List Current Medications: Active Medications Acetaminophen (Tylenol Suppository -) 650 mg [place] Q6H PRN PRN Reason: FEVER Last Admin: 12/27/17 02:21 Dose: 650 mg Albuterol Sulfate (Ventolin 0.083% Nebulizer Soln -) 1 amp NEB Q4H PRN PRN Reason: SHORT OF BREATH/WHEEZING Ascorbic Acid (Vitamin C -) 500 mg PO DAILY [facility] Last Admin: 12/27/17 09:35 Dose: 500 mg Aspirin (Asa -) 81 mg PO DAILY [facility] Last Admin: 12/27/17 09:35 Dose: 81 mg Atorvastatin Calcium (Lipitor -) 80 mg PO HS [facility] Last Admin: 12/26/17 21:18 Dose: 80 mg Heparin Sodium (Porcine) (Heparin -) 5,000 unit SQ TID [facility] Last Admin: 12/27/17 05:32 Dose: 5,000 unit Heparin Sodium (Porcine) (Heparin -) 1,000 unit IVPUSH ONCE ONE Stop: 12/27/17 17:42 Azithromycin 500 mg/ Dextrose 250 mls @ 250 mls/hr IVPB DAILY [facility] Last Admin: 12/27/17 09:35 Dose: 250 mls/hr Dextrose/Sodium Chloride (D5-1/2ns -) 1,000 mls @ 50 mls/hr IV ASDIR [facility] Last Admin: 12/26/17 23:16 Dose: 50 mls/hr Piperacillin Sod/Tazobactam (Sod 2.25 gm/ Dextrose) 50 mls @ 100 mls/hr IVPB Q8H-IV [facility] Last Admin: 12/27/17 09:34 Dose: 100 mls/hr Sodium Chloride (Normal Saline -) 250 mls @ 3,000 mls/hr IV PRN PRN PRN Reason: Hypotension during Dialysis Stop: 12/27/17 17:41 Labetalol HCl (Normodyne -) 200 mg PO BID [facility] Last Admin: 12/27/17 09:35 Dose: 200 mg Multivit/Ca Carb/B Cmplx/FA/Prenat (Nephro-Masha -) 1 tablet PO DAILY [facility] Last Admin: 12/27/17 09:35 Dose: 1 tablet Ondansetron HCl (Zofran Injection) 4 mg IVPUSH Q6H PRN PRN Reason: NAUSEA - Objective Vital Signs: Vital Signs Temperature 99 F 12/27/17 09:35 Pulse Rate 100 H 12/27/17 09:35 Respiratory Rate 18 12/27/17 09:35 Blood Pressure 150/80 12/27/17 09:35 O2 Sat by Pulse Oximetry (%) 98 12/27/17 02:54 Constitutional: Yes: Mild Distress Eyes: Yes: WNL HENT: Yes: WNL Neck: Yes: WNL Cardiovascular: Yes: WNL Respiratory: Yes: Diminished, On Nasal O2 Gastrointestinal: Yes: WNL Genitourinary: Yes: Other Musculoskeletal: Yes: Muscle Weakness Edema: Yes Edema: LLE: Trace, RLE: Trace Peripheral Pulses WNL: Yes Integumentary: Yes: WNL Wound/Incision: Yes: Clean/Dry, Dressing Dry and Intact Neurological: Yes: Loss of Sensation, Pre-Existing Deficit, Weakness, Other ...Motor Strength: LUE, LLE, RUE, RLE Psychiatric: Yes: Other Labs: CBC, BMP 12/25/17 07:55 12/25/17 07:55 Problem List - Problems (1) Acute metabolic encephalopathy Code(s): G93.41 - METABOLIC ENCEPHALOPATHY (2) ESRD (end stage renal disease) on dialysis Code(s): N18.6 - END STAGE RENAL DISEASE; Z99.2 - DEPENDENCE ON RENAL DIALYSIS (3) Pneumonia Code(s): J18.9 - PNEUMONIA, UNSPECIFIED ORGANISM (4) Sepsis Code(s): A41.9 - SEPSIS, UNSPECIFIED ORGANISM Qualifiers: Sepsis type: sepsis due to unspecified organism Qualified Code(s): A41.9 - Sepsis, unspecified organism (5) Altered mental status, unspecified Code(s): R41.82 - ALTERED MENTAL STATUS, UNSPECIFIED Qualifiers: Altered mental status type: unspecified Qualified Code(s): R41.82 - Altered mental status, unspecified (6) CVA, old, aphasia Code(s): I69.320 - APHASIA FOLLOWING CEREBRAL INFARCTION (7) Cervical lymphadenopathy Code(s): R59.0 - LOCALIZED ENLARGED LYMPH NODES (8) Hypertension Code(s): I10 - ESSENTIAL (PRIMARY) HYPERTENSION (9) Weakness generalized Code(s): R53.1 - WEAKNESS Assessment/Plan IV ABX AWAIT CULTURES ID AND RENAL EVAL APPRECIATED WHEN TREATMENT COMPLETED MAY RETURN TO SNF
[2017-12-27] MEDS ORDERED: HEPARIN NA (PORCINE) 5,000 UNITS/ML 1ML VIAL IVPUSH ONE (11:45)
[2017-12-27] MEDS ORDERED: SODIUM CHLORIDE 250 ML IV ONE (11:45)
--- NOTE | 2017-12-27 12:20 | PN ---
Progress Note, [employer] - Note Progress Note: Selected Entries 12/26/17 12/26/17 12/26/17 02:00 06:00 10:00 Breakfast Supper Temperature 100.8 F H 99.5 F 99.8 F H 12/26/17 12/26/17 12/26/17 13:14 18:42 22:00 Breakfast Supper 100% Temperature 100.6 F H 99.6 F 100.0 F H 12/27/17 12/27/17 12/27/17 02:00 06:00 09:35 Breakfast Supper Temperature 102.2 F H 99.4 F 99 F 12/27/17 12/27/17 10:37 11:25 Breakfast 50% Supper Temperature 98.4 F Laboratory Tests 12/24/17 12/25/17 06:00 07:55 WBC 9.8 11.8 H On puree/nectar thick liquid. Was more awake this am, per nurse, but more lethargic following. In HD. Continue modified diet, if sufficiently awake.Monitor tolerance.
[2017-12-27 12:22] LABS: HEMOGLOBIN 10.6 GM/dL (11.7-16.9); MCH 31.8 pg (25.7-33.7); MCHC 33.1 g/dl (32.0-35.9); MEAN PLT VOLUME 8.3 fl (7.5-11.1); PLATELET COUNT 150 K/MM3 (134-434); RBC 3.33 M/mm3 (4.00-5.60); RDW 14.4 % (11.9-15.9); WHITE BLOOD COUNT 12.6 K/mm3 (4.0-10.0)
[2017-12-27 12:45] LABS: ALBUMIN 2.4 g/dl (3.4-5.0); ANION GAP 16 (8-16); BLOOD UREA NITROGEN 67 mg/dL (7-18); CALCIUM 7.5 mg/dL (8.5-10.1); CHLORIDE 99 mmol/L (98-107); CO2 25 mmol/L (21-32); GLUCOSE,RANDOM 154 mg/dL (74-106); POTASSIUM 4.4 mmol/L (3.5-5.1); SGOT/AST 41 U/L (15-37); SGPT/ALT 32 U/L (12-78); SODIUM 140 mmol/L (136-145)
[2017-12-27 12:52] LABS: ALK PHOS 156 U/L (45-117); BILIRUBIN,TOTAL 0.5 mg/dL (0.2-1.0); TOT PROT 6.4 g/dl (6.4-8.2)
--- NOTE | 2017-12-27 13:16 | PN ---
Progress Note, Physician History of Present Illness: Pt seen and examined at bedside. He is currently getting HD. - Current Medication List Current Medications: Active Medications Acetaminophen (Tylenol Suppository -) 650 mg [place] Q6H PRN PRN Reason: FEVER Last Admin: 12/27/17 02:21 Dose: 650 mg Albuterol Sulfate (Ventolin 0.083% Nebulizer Soln -) 1 amp NEB Q4H PRN PRN Reason: SHORT OF BREATH/WHEEZING Ascorbic Acid (Vitamin C -) 500 mg PO DAILY [facility] Last Admin: 12/27/17 09:35 Dose: 500 mg Aspirin (Asa -) 81 mg PO DAILY [facility] Last Admin: 12/27/17 09:35 Dose: 81 mg Atorvastatin Calcium (Lipitor -) 80 mg PO HS [facility] Last Admin: 12/26/17 21:18 Dose: 80 mg Heparin Sodium (Porcine) (Heparin -) 5,000 unit SQ TID [facility] Last Admin: 12/27/17 05:32 Dose: 5,000 unit Azithromycin 500 mg/ Dextrose 250 mls @ 250 mls/hr IVPB DAILY [facility] Last Admin: 12/27/17 09:35 Dose: 250 mls/hr Dextrose/Sodium Chloride (D5-1/2ns -) 1,000 mls @ 50 mls/hr IV ASDIR [facility] Last Admin: 12/26/17 23:16 Dose: 50 mls/hr Piperacillin Sod/Tazobactam (Sod 2.25 gm/ Dextrose) 50 mls @ 100 mls/hr IVPB Q8H-IV [facility] Last Admin: 12/27/17 09:34 Dose: 100 mls/hr Labetalol HCl (Normodyne -) 200 mg PO BID [facility] Last Admin: 12/27/17 09:35 Dose: 200 mg Multivit/Ca Carb/B Cmplx/FA/Prenat (Nephro-Masha -) 1 tablet PO DAILY [facility] Last Admin: 12/27/17 09:35 Dose: 1 tablet Ondansetron HCl (Zofran Injection) 4 mg IVPUSH Q6H PRN PRN Reason: NAUSEA - Objective Vital Signs: Vital Signs Temperature 98.4 F 12/27/17 11:25 Pulse Rate 88 12/27/17 13:00 Respiratory Rate 18 12/27/17 13:00 Blood Pressure 141/66 12/27/17 13:00 O2 Sat by Pulse Oximetry (%) 98 12/27/17 09:00 Constitutional: Yes: Calm Eyes: Yes: Conjunctiva Clear HENT: Yes: Atraumatic Cardiovascular: Yes: S1, S2 Respiratory: Yes: On Nasal O2 Gastrointestinal: Yes: Soft Genitourinary: Yes: Incontinence Musculoskeletal: Yes: Muscle Weakness Edema: LLE: Trace, RLE: Trace Neurological: Yes: Lethargy, Pre-Existing Deficit Labs: CBC, BMP 12/27/17 11:35 12/27/17 11:35 Problem List - Problems (1) ESRD (end stage renal disease) on dialysis Code(s): N18.6 - END STAGE RENAL DISEASE; Z99.2 - DEPENDENCE ON RENAL DIALYSIS (2) Pneumonia Code(s): J18.9 - PNEUMONIA, UNSPECIFIED ORGANISM (3) Sepsis Code(s): A41.9 - SEPSIS, UNSPECIFIED ORGANISM Qualifiers: Sepsis type: sepsis due to unspecified organism Qualified Code(s): A41.9 - Sepsis, unspecified organism Assessment/Plan Current Medications Generic Name Dose Route Start Last Admin Trade Name Freq PRN Reason Stop Dose Admin Acetaminophen 650 mg 12/24/17 12:57 12/27/17 02:21 Tylenol Suppository - [place] 650 mg Q6H PRN Administration FEVER Albuterol Sulfate 1 amp 12/24/17 01:54 Ventolin 0.083% Nebulizer Soln - NEB Q4H PRN SHORT OF BREATH/WHEEZING Ascorbic Acid 500 mg 12/24/17 10:00 12/27/17 09:35 Vitamin C - PO 500 mg DAILY [facility] Administration Aspirin 81 mg 12/24/17 10:00 12/27/17 09:35 Asa - PO 81 mg DAILY [facility] Administration Atorvastatin Calcium 80 mg 12/24/17 22:00 12/26/17 21:18 Lipitor - PO 80 mg HS [facility] Administration Heparin Sodium (Porcine) 5,000 unit 12/24/17 06:00 12/27/17 05:32 Heparin - SQ 5,000 unit TID [facility] Administration Azithromycin 500 mg/ Dextrose 250 mls @ 250 mls/hr 12/24/17 10:00 12/27/17 09 :35 IVPB 250 mls/hr DAILY [facility] Administration Dextrose/Sodium Chloride 1,000 mls @ 50 mls/hr 12/24/17 13:45 12/26/17 23:16 D5-1/2ns - IV 50 mls/hr ASDIR [facility] Administration Piperacillin Sod/Tazobactam 50 mls @ 100 mls/hr 12/25/17 18:15 12/27/17 09:34 Sod 2.25 gm/ Dextrose IVPB 100 mls/hr Q8H-IV [facility] Administration Labetalol HCl 200 mg 12/26/17 18:30 12/27/17 09:35 Normodyne - PO 200 mg BID [facility] Administration Multivit/Ca Carb/B Cmplx/FA/Prenat 1 tablet 12/24/17 10:00 12/27/17 09:35 Nephro-Masha - PO 1 tablet DAILY [facility] Administration Ondansetron HCl 4 mg 12/24/17 01:54 Zofran Injection IVPUSH Q6H PRN NAUSEA Impression 1. ESRD 2. chol 3. hx CVA 4. HTN 5. altered mental status 6. failure to thrive 7. hyperkalemia 8. PNA 9. Sepsis Plan - HD today - decrease rate of fluids - speech/swallow eval - cultures neg so far, cont to follow - cont abx - potassium stable
--- NOTE | 2017-12-27 15:22 | PN ---
Progress Note (short form) - Note Progress Note: receiving HD no complaints intermittent fevers Vital Signs Period Temp Pulse Resp BP Sys/Hu Pulse Ox Last 24 Hr 98.4 F-102.2 F 88-101 18-18 124-182/61-84 98-98 cor-rrr lungs bilateral rhonchi abd soft, nt ext no edema CBC, BMP 12/27/17 11:35 12/27/17 11:35 Microbiology 12/23/17 21:40 Blood - Peripheral Venous Blood Culture - Preliminary NO GROWTH OBTAINED AFTER 72 HOURS, INCUBATION TO CONTINUE FOR 2 DAYS. 12/23/17 21:24 Blood - Peripheral Venous Blood Culture - Preliminary NO GROWTH OBTAINED AFTER 72 HOURS, INCUBATION TO CONTINUE FOR 2 DAYS. 12/23/17 22:01 Urine - Urine - Catheterized Urine Culture - Final NO GROWTH OBTAINED 12/23/17 22:01 Nasopharyngeal Swab Influenza Types A,B Antigen (MEREDITH) - Final 12/23/17 22:01 Nasopharyngeal Swab - Final a/p sepsis/fever in NHR suspect HCAP given cough and cxray findings-left base infiltrate zosyn/zithromax day #4 continue antibiotics clinically improving esrd/hd- per renal Problem List - Problems (1) Sepsis Code(s): A41.9 - SEPSIS, UNSPECIFIED ORGANISM Qualifiers: Sepsis type: sepsis due to unspecified organism Qualified Code(s): A41.9 - Sepsis, unspecified organism (2) Pneumonia Code(s): J18.9 - PNEUMONIA, UNSPECIFIED ORGANISM (3) ESRD (end stage renal disease) on dialysis Code(s): N18.6 - END STAGE RENAL DISEASE; Z99.2 - DEPENDENCE ON RENAL DIALYSIS
[2017-12-27] MEDS: DEXTROSE 5%-0.45% SALINE 1,000 ML IV SCH (16:00)
[2017-12-27] MEDS: ATORVASTATIN CA 80 MG TABLET (FP) PO SCH (22:00)
[2017-12-28] MEDS ORDERED: PT OWN MED DRAWER 7, Y5N ONE ×3 (01:37→21:29)
[2017-12-28] MEDS: PIPERACILLIN/TAZOB 2.25 GM 2.25 GM in DEXTROSE 5%-WATER - 50 ML IVPB SCH ×3 (02:12→18:23)
[2017-12-28] MEDS: HEPARIN NA (PORCINE) 5,000 UNITS/ML 1ML VIAL SQ SCH ×3 (05:14→22:34)
[2017-12-28] MEDS: AZITHROMYCIN IVPB 500 MG in DEXTROSE 5%-WATER - 250 ML IVPB SCH (10:31)
[2017-12-28] MEDS: ASPIRIN 81 MG CHEWABLE TABLETS PO SCH (10:32)
[2017-12-28] MEDS: LABETALOL HCL 200 MG TABLET (FP) PO SCH ×2 (10:32→22:33)
[2017-12-28] MEDS: VITAMIN B COMP W-C 1 EA TABLET PO SCH (10:32)
[2017-12-28] MEDS: ASCORBIC ACID 500 MG TABLET (FP) PO SCH (10:32)
--- NOTE | 2017-12-28 10:57 | PN ---
Progress Note, Physician Chief Complaint: MORE ALERT TODAY SCHEDULED FOR MOD BARIUM EVAL - Current Medication List Current Medications: Active Medications Acetaminophen (Tylenol Suppository -) 650 mg [place] Q6H PRN PRN Reason: FEVER Last Admin: 12/27/17 02:21 Dose: 650 mg Albuterol Sulfate (Ventolin 0.083% Nebulizer Soln -) 1 amp NEB Q4H PRN PRN Reason: SHORT OF BREATH/WHEEZING Ascorbic Acid (Vitamin C -) 500 mg PO DAILY [facility] Last Admin: 12/28/17 10:32 Dose: 500 mg Aspirin (Asa -) 81 mg PO DAILY [facility] Last Admin: 12/28/17 10:32 Dose: 81 mg Atorvastatin Calcium (Lipitor -) 80 mg PO HS [facility] Last Admin: 12/27/17 22:00 Dose: 80 mg Heparin Sodium (Porcine) (Heparin -) 5,000 unit SQ TID [facility] Last Admin: 12/28/17 05:14 Dose: 5,000 unit Azithromycin 500 mg/ Dextrose 250 mls @ 250 mls/hr IVPB DAILY [facility] Last Admin: 12/28/17 10:31 Dose: 250 mls/hr Piperacillin Sod/Tazobactam (Sod 2.25 gm/ Dextrose) 50 mls @ 100 mls/hr IVPB Q8H-IV [facility] Last Admin: 12/28/17 10:32 Dose: 100 mls/hr Dextrose/Sodium Chloride (D5-1/2ns -) 1,000 mls @ 35 mls/hr IV ASDIR [facility] Last Admin: 12/27/17 16:00 Dose: 35 mls/hr Labetalol HCl (Normodyne -) 200 mg PO BID [facility] Last Admin: 12/28/17 10:32 Dose: 200 mg Multivit/Ca Carb/B Cmplx/FA/Prenat (Nephro-Masha -) 1 tablet PO DAILY [facility] Last Admin: 12/28/17 10:32 Dose: 1 tablet Ondansetron HCl (Zofran Injection) 4 mg IVPUSH Q6H PRN PRN Reason: NAUSEA - Objective Vital Signs: Vital Signs Temperature 98.4 F 12/28/17 06:00 Pulse Rate 89 12/28/17 06:00 Respiratory Rate 18 12/28/17 06:00 Blood Pressure 133/59 12/28/17 06:00 O2 Sat by Pulse Oximetry (%) 98 12/27/17 21:00 Constitutional: Yes: Mild Distress Eyes: Yes: WNL HENT: Yes: WNL Neck: Yes: WNL Cardiovascular: Yes: WNL Respiratory: Yes: On Nasal O2, Rhonchi Gastrointestinal: Yes: WNL Genitourinary: Yes: Incontinence Musculoskeletal: Yes: Muscle Weakness Extremities: Yes: Other Edema: Yes Edema: LLE: Trace, RLE: Trace Peripheral Pulses WNL: Yes Integumentary: Yes: Venous Stasis Changes, Other Wound/Incision: Yes: Dressing Dry and Intact Neurological: Yes: Pre-Existing Deficit, Weakness ...Motor Strength: LLE, RLE Psychiatric: Yes: Other Labs: CBC, BMP 12/27/17 11:35 12/27/17 19:15 Problem List - Problems (1) Acute metabolic encephalopathy Code(s): G93.41 - METABOLIC ENCEPHALOPATHY (2) ESRD (end stage renal disease) on dialysis Code(s): N18.6 - END STAGE RENAL DISEASE; Z99.2 - DEPENDENCE ON RENAL DIALYSIS (3) Pneumonia Code(s): J18.9 - PNEUMONIA, UNSPECIFIED ORGANISM (4) Sepsis Code(s): A41.9 - SEPSIS, UNSPECIFIED ORGANISM Qualifiers: Sepsis type: sepsis due to unspecified organism Qualified Code(s): A41.9 - Sepsis, unspecified organism (5) Altered mental status, unspecified Code(s): R41.82 - ALTERED MENTAL STATUS, UNSPECIFIED Qualifiers: Altered mental status type: unspecified Qualified Code(s): R41.82 - Altered mental status, unspecified (6) CVA, old, aphasia Code(s): I69.320 - APHASIA FOLLOWING CEREBRAL INFARCTION (7) Cervical lymphadenopathy Code(s): R59.0 - LOCALIZED ENLARGED LYMPH NODES (8) Hypertension Code(s): I10 - ESSENTIAL (PRIMARY) HYPERTENSION (9) Weakness generalized Code(s): R53.1 - WEAKNESS Assessment/Plan DAY #5 IV ABX PER ID MODIFIED BARIUM EVAL FOR DYSPHAGIA ESRD ON HD CHECK LABS
--- NOTE | 2017-12-28 13:12 | PN ---
Progress Note, Physician History of Present Illness: Pt seen and examined at bedside. He did have some oatmeal for breakfast. Mental status starting to improve. - Current Medication List Current Medications: Active Medications Acetaminophen (Tylenol Suppository -) 650 mg [place] Q6H PRN PRN Reason: FEVER Last Admin: 12/27/17 02:21 Dose: 650 mg Albuterol Sulfate (Ventolin 0.083% Nebulizer Soln -) 1 amp NEB Q4H PRN PRN Reason: SHORT OF BREATH/WHEEZING Ascorbic Acid (Vitamin C -) 500 mg PO DAILY [facility] Last Admin: 12/28/17 10:32 Dose: 500 mg Aspirin (Asa -) 81 mg PO DAILY [facility] Last Admin: 12/28/17 10:32 Dose: 81 mg Atorvastatin Calcium (Lipitor -) 80 mg PO HS [facility] Last Admin: 12/27/17 22:00 Dose: 80 mg Heparin Sodium (Porcine) (Heparin -) 5,000 unit SQ TID [facility] Last Admin: 12/28/17 05:14 Dose: 5,000 unit Azithromycin 500 mg/ Dextrose 250 mls @ 250 mls/hr IVPB DAILY [facility] Last Admin: 12/28/17 10:31 Dose: 250 mls/hr Piperacillin Sod/Tazobactam (Sod 2.25 gm/ Dextrose) 50 mls @ 100 mls/hr IVPB Q8H-IV [facility] Last Admin: 12/28/17 10:32 Dose: 100 mls/hr Dextrose/Sodium Chloride (D5-1/2ns -) 1,000 mls @ 35 mls/hr IV ASDIR [facility] Last Admin: 12/27/17 16:00 Dose: 35 mls/hr Labetalol HCl (Normodyne -) 200 mg PO BID [facility] Last Admin: 12/28/17 10:32 Dose: 200 mg Multivit/Ca Carb/B Cmplx/FA/Prenat (Nephro-Masha -) 1 tablet PO DAILY [facility] Last Admin: 12/28/17 10:32 Dose: 1 tablet Ondansetron HCl (Zofran Injection) 4 mg IVPUSH Q6H PRN PRN Reason: NAUSEA - Objective Vital Signs: Vital Signs Temperature 98.4 F 12/28/17 12:00 Pulse Rate 86 12/28/17 12:00 Respiratory Rate 18 12/28/17 12:00 Blood Pressure 150/65 12/28/17 12:00 O2 Sat by Pulse Oximetry (%) 98 12/27/17 21:00 Constitutional: Yes: Calm Eyes: Yes: Conjunctiva Clear Cardiovascular: Yes: S1, S2 Respiratory: Yes: CTA Bilaterally Gastrointestinal: Yes: Soft Genitourinary: Yes: Incontinence Musculoskeletal: Yes: Muscle Weakness Edema: No Neurological: Yes: Other (more awake) Labs: CBC, BMP 12/27/17 11:35 12/27/17 19:15 Problem List - Problems (1) ESRD (end stage renal disease) on dialysis Code(s): N18.6 - END STAGE RENAL DISEASE; Z99.2 - DEPENDENCE ON RENAL DIALYSIS (2) Pneumonia Code(s): J18.9 - PNEUMONIA, UNSPECIFIED ORGANISM (3) Sepsis Code(s): A41.9 - SEPSIS, UNSPECIFIED ORGANISM Qualifiers: Sepsis type: sepsis due to unspecified organism Qualified Code(s): A41.9 - Sepsis, unspecified organism Assessment/Plan Current Medications Generic Name Dose Route Start Last Admin Trade Name Freq PRN Reason Stop Dose Admin Acetaminophen 650 mg 12/24/17 12:57 12/27/17 02:21 Tylenol Suppository - [place] 650 mg Q6H PRN Administration FEVER Albuterol Sulfate 1 amp 12/24/17 01:54 Ventolin 0.083% Nebulizer Soln - NEB Q4H PRN SHORT OF BREATH/WHEEZING Ascorbic Acid 500 mg 12/24/17 10:00 12/28/17 10:32 Vitamin C - PO 500 mg DAILY [facility] Administration Aspirin 81 mg 12/24/17 10:00 12/28/17 10:32 Asa - PO 81 mg DAILY [facility] Administration Atorvastatin Calcium 80 mg 12/24/17 22:00 12/27/17 22:00 Lipitor - PO 80 mg HS [facility] Administration Heparin Sodium (Porcine) 5,000 unit 12/24/17 06:00 12/28/17 05:14 Heparin - SQ 5,000 unit TID [facility] Administration Azithromycin 500 mg/ Dextrose 250 mls @ 250 mls/hr 12/24/17 10:00 12/28/17 10 :31 IVPB 250 mls/hr DAILY [facility] Administration Piperacillin Sod/Tazobactam 50 mls @ 100 mls/hr 12/25/17 18:15 03/29/18 10:32 Sod 2.25 gm/ Dextrose IVPB 100 mls/hr Q8H-IV [facility] Administration Dextrose/Sodium Chloride 1,000 mls @ 35 mls/hr 12/27/17 13:16 12/27/17 16:00 D5-1/2ns - IV 35 mls/hr ASDIR [facility] Administration Labetalol HCl 200 mg 12/26/17 18:30 12/28/17 10:32 Normodyne - PO 200 mg BID [facility] Administration Multivit/Ca Carb/B Cmplx/FA/Prenat 1 tablet 12/24/17 10:00 12/28/17 10:32 Nephro-Masha - PO 1 tablet DAILY [facility] Administration Ondansetron HCl 4 mg 12/24/17 01:54 Zofran Injection IVPUSH Q6H PRN NAUSEA Impression 1. ESRD 2. chol 3. hx CVA 4. HTN 5. altered mental status 6. failure to thrive 7. hyperkalemia 8. PNA 9. Sepsis Plan - will arrange for HD in am - cont abx - will need one to one feeds - speech/swallow eval - will order labs with HD tomorrow Dr Naranjo
[2017-12-28] MEDS: DEXTROSE 5%-0.45% SALINE 1,000 ML IV SCH ×2 (15:46→18:25)
--- NOTE | 2017-12-28 18:04 | PN ---
Progress Note (short form) - Note Progress Note: much more alert today +wet cough Vital Signs Period Temp Pulse Resp BP Sys/Hu Pulse Ox Last 24 Hr 98.4 F-100.9 F 86-103 18-20 131-167/59-71 98 cor-rrr lungs decreased bs at bases abd soft,nt ext bilateral hand edema CBC, BMP 12/27/17 11:35 12/27/17 19:15 Microbiology 12/23/17 21:40 Blood Culture - Preliminary Blood - Peripheral Venous NO GROWTH OBTAINED AFTER 96 HOURS, INCUBATION TO CONTINUE FOR 1 DAYS. 12/23/17 21:24 Blood Culture - Preliminary Blood - Peripheral Venous NO GROWTH OBTAINED AFTER 96 HOURS, INCUBATION TO CONTINUE FOR 1 DAYS. a/p sepsis/fever in NHR-improved suspect HCAP given cough and cxray findings-left base infiltrate zosyn/zithromax day #5 d/c zithromax continue zosyn clinically improving esrd/hd- per renal Problem List - Problems (1) Sepsis Code(s): A41.9 - SEPSIS, UNSPECIFIED ORGANISM Qualifiers: Sepsis type: sepsis due to unspecified organism Qualified Code(s): A41.9 - Sepsis, unspecified organism (2) Pneumonia Code(s): J18.9 - PNEUMONIA, UNSPECIFIED ORGANISM (3) ESRD (end stage renal disease) on dialysis Code(s): N18.6 - END STAGE RENAL DISEASE; Z99.2 - DEPENDENCE ON RENAL DIALYSIS
[2017-12-28] MEDS: ACETAMINOPHEN 650 MG SUPP.RECT PR PRN (18:22)
[2017-12-28] MEDS: ATORVASTATIN CA 80 MG TABLET (FP) PO SCH (22:33)
[2017-12-29] MEDS: PIPERACILLIN/TAZOB 2.25 GM 2.25 GM in DEXTROSE 5%-WATER - 50 ML IVPB SCH ×3 (02:04→18:10)
[2017-12-29] MEDS: HEPARIN NA (PORCINE) 5,000 UNITS/ML 1ML VIAL SQ SCH ×3 (06:34→22:50)
[2017-12-29] MEDS: ACETAMINOPHEN 650 MG SUPP.RECT PR PRN ×2 (06:36→17:16)
[2017-12-29] MEDS ORDERED: PT OWN MED DRAWER 7, Y5N ONE ×2 (09:04→18:01)
[2017-12-29] MEDS: AZITHROMYCIN IVPB 500 MG in DEXTROSE 5%-WATER - 250 ML IVPB SCH (09:19)
[2017-12-29] MEDS: ASPIRIN 81 MG CHEWABLE TABLETS PO SCH (09:20)
[2017-12-29] MEDS: VITAMIN B COMP W-C 1 EA TABLET PO SCH (09:20)
[2017-12-29] MEDS: LABETALOL HCL 200 MG TABLET (FP) PO SCH ×2 (09:20→22:49)
[2017-12-29] MEDS: ASCORBIC ACID 500 MG TABLET (FP) PO SCH (09:20)
[2017-12-29] MEDS ORDERED: HEPARIN NA (PORCINE) 5,000 UNITS/ML 1ML VIAL IVPUSH ONE (09:45)
[2017-12-29] MEDS ORDERED: EPOETIN ALFA 3,000 UNIT/1 ML ML IVPUSH ONE (09:45)
[2017-12-29] MEDS ORDERED: SODIUM CHLORIDE 250 ML IV ONE (09:45)
--- NOTE | 2017-12-29 10:39 | PN ---
Progress Note, [employer] - Note Progress Note: Pt on puree/nectar. MBS completed with brisk swallow, with aspiration risk due to delayed onset. Nursing reported coughing following medication crushed and given in applesauce. Pt then given nectar thick liquid with coughing response. Defer diet upgrade due to delayed swallow/drooling. Reviewed with PMD. Pt on seizure meds as well which affect JAMES and participation/swallow initiation. Continue Puree/NTL.
--- NOTE | 2017-12-29 11:13 | PN ---
Progress Note, Physician Chief Complaint: STILL WITH FEVERS DYSPHAGIA TOLERATING DIET - Current Medication List Current Medications: Active Medications Acetaminophen (Tylenol Suppository -) 650 mg [place] Q6H PRN PRN Reason: FEVER Last Admin: 12/29/17 06:36 Dose: 650 mg Ascorbic Acid (Vitamin C -) 500 mg PO DAILY [facility] Last Admin: 12/29/17 09:20 Dose: 500 mg Aspirin (Asa -) 81 mg PO DAILY [facility] Last Admin: 12/29/17 09:20 Dose: 81 mg Atorvastatin Calcium (Lipitor -) 80 mg PO HS [facility] Last Admin: 12/28/17 22:33 Dose: 80 mg Heparin Sodium (Porcine) (Heparin -) 5,000 unit SQ TID [facility] Last Admin: 12/29/17 06:34 Dose: 5,000 unit Azithromycin 500 mg/ Dextrose 250 mls @ 250 mls/hr IVPB DAILY [facility] Last Admin: 12/29/17 09:19 Dose: 250 mls/hr Piperacillin Sod/Tazobactam (Sod 2.25 gm/ Dextrose) 50 mls @ 100 mls/hr IVPB Q8H-IV [facility] Last Admin: 12/29/17 09:19 Dose: 100 mls/hr Dextrose/Sodium Chloride (D5-1/2ns -) 1,000 mls @ 35 mls/hr IV ASDIR [facility] Last Admin: 12/28/17 18:25 Dose: 35 mls/hr Labetalol HCl (Normodyne -) 200 mg PO BID [facility] Last Admin: 12/29/17 09:20 Dose: 200 mg Multivit/Ca Carb/B Cmplx/FA/Prenat (Nephro-Masha -) 1 tablet PO DAILY [facility] Last Admin: 12/29/17 09:20 Dose: 1 tablet Ondansetron HCl (Zofran Injection) 4 mg IVPUSH Q6H PRN PRN Reason: NAUSEA - Objective Vital Signs: Vital Signs Temperature 11.7 F L 12/29/17 07:44 Pulse Rate 95 H 12/29/17 07:44 Respiratory Rate 19 12/29/17 09:00 Blood Pressure 174/72 12/29/17 07:44 O2 Sat by Pulse Oximetry (%) 97 12/29/17 09:00 Constitutional: Yes: Mild Distress Eyes: Yes: WNL HENT: Yes: WNL Neck: Yes: WNL Cardiovascular: Yes: WNL Respiratory: Yes: On Nasal O2, Rhonchi Gastrointestinal: Yes: WNL Genitourinary: Yes: Incontinence Musculoskeletal: Yes: Muscle Weakness Extremities: Yes: WNL Edema: Yes Edema: LLE: Trace, RLE: Trace Peripheral Pulses WNL: Yes Integumentary: Yes: WNL Wound/Incision: Yes: Clean/Dry Neurological: Yes: Aphasia, Pre-Existing Deficit, Unsteady Gait, Weakness ...Motor Strength: LLE, RLE Psychiatric: Yes: Other Labs: CBC, BMP 12/27/17 11:35 12/27/17 19:15 Problem List - Problems (1) Acute metabolic encephalopathy Code(s): G93.41 - METABOLIC ENCEPHALOPATHY (2) ESRD (end stage renal disease) on dialysis Code(s): N18.6 - END STAGE RENAL DISEASE; Z99.2 - DEPENDENCE ON RENAL DIALYSIS (3) Pneumonia Code(s): J18.9 - PNEUMONIA, UNSPECIFIED ORGANISM (4) Sepsis Code(s): A41.9 - SEPSIS, UNSPECIFIED ORGANISM Qualifiers: Sepsis type: sepsis due to unspecified organism Qualified Code(s): A41.9 - Sepsis, unspecified organism (5) Altered mental status, unspecified Code(s): R41.82 - ALTERED MENTAL STATUS, UNSPECIFIED Qualifiers: Altered mental status type: unspecified Qualified Code(s): R41.82 - Altered mental status, unspecified (6) CVA, old, aphasia Code(s): I69.320 - APHASIA FOLLOWING CEREBRAL INFARCTION (7) Cervical lymphadenopathy Code(s): R59.0 - LOCALIZED ENLARGED LYMPH NODES (8) Hypertension Code(s): I10 - ESSENTIAL (PRIMARY) HYPERTENSION (9) Weakness generalized Code(s): R53.1 - WEAKNESS Assessment/Plan IV ABX PER ID ID FOLLOW UP DYSPHAGIA HOA FUENTES REVIEWED ESRD HD
[2017-12-29 13:31] LABS: HEMATOCRIT 31.3 % (35.4-49); HEMOGLOBIN 10.5 GM/dL (11.7-16.9); MCHC 33.5 g/dl (32.0-35.9); MEAN CELL VOLUME 95.6 fl (80-96); MEAN PLT VOLUME 8.1 fl (7.5-11.1); PLATELET COUNT 178 K/MM3 (134-434); RBC 3.27 M/mm3 (4.00-5.60); WHITE BLOOD COUNT 3.9 K/mm3 (4.0-10.0)
[2017-12-29 13:56] LABS: ANION GAP 15 (8-16); BLOOD UREA NITROGEN 51 mg/dL (7-18); CALCIUM 7.9 mg/dL (8.5-10.1); CHLORIDE 97 mmol/L (98-107); CO2 26 mmol/L (21-32); GLUCOSE,RANDOM 157 mg/dL (74-106); POTASSIUM 3.9 mmol/L (3.5-5.1); SODIUM 138 mmol/L (136-145)
[2017-12-29 14:12] LABS: CREATININE 9.4 mg/dL (0.7-1.3)
--- NOTE | 2017-12-29 14:32 | PN ---
Progress Note, Physician History of Present Illness: Pt seen and examined at bedside. He is currently in HD. Mental status is not much different than yesterday. - Current Medication List Current Medications: Active Medications Acetaminophen (Tylenol Suppository -) 650 mg DE Q6H PRN PRN Reason: FEVER Last Admin: 12/29/17 06:36 Dose: 650 mg Ascorbic Acid (Vitamin C -) 500 mg PO DAILY [facility] Last Admin: 12/29/17 09:20 Dose: 500 mg Aspirin (Asa -) 81 mg PO DAILY [facility] Last Admin: 12/29/17 09:20 Dose: 81 mg Atorvastatin Calcium (Lipitor -) 80 mg PO HS [facility] Last Admin: 12/28/17 22:33 Dose: 80 mg Heparin Sodium (Porcine) (Heparin -) 5,000 unit SQ TID [facility] Last Admin: 12/29/17 06:34 Dose: 5,000 unit Azithromycin 500 mg/ Dextrose 250 mls @ 250 mls/hr IVPB DAILY [facility] Last Admin: 12/29/17 09:19 Dose: 250 mls/hr Piperacillin Sod/Tazobactam (Sod 2.25 gm/ Dextrose) 50 mls @ 100 mls/hr IVPB Q8H-IV [facility] Last Admin: 12/29/17 09:19 Dose: 100 mls/hr Dextrose/Sodium Chloride (D5-1/2ns -) 1,000 mls @ 35 mls/hr IV ASDIR [facility] Last Admin: 12/28/17 18:25 Dose: 35 mls/hr Labetalol HCl (Normodyne -) 200 mg PO BID [facility] Last Admin: 12/29/17 09:20 Dose: 200 mg Multivit/Ca Carb/B Cmplx/FA/Prenat (Nephro-Masha -) 1 tablet PO DAILY [facility] Last Admin: 12/29/17 09:20 Dose: 1 tablet Ondansetron HCl (Zofran Injection) 4 mg IVPUSH Q6H PRN PRN Reason: NAUSEA - Objective Vital Signs: Vital Signs Temperature 11.7 F L 12/29/17 07:44 Pulse Rate 95 H 12/29/17 07:44 Respiratory Rate 19 12/29/17 09:00 Blood Pressure 174/72 12/29/17 07:44 O2 Sat by Pulse Oximetry (%) 97 12/29/17 09:00 Constitutional: Yes: Calm Eyes: Yes: Conjunctiva Clear HENT: Yes: Atraumatic Cardiovascular: Yes: S1, S2 Respiratory: Yes: On Nasal O2 Gastrointestinal: Yes: Soft Genitourinary: Yes: Incontinence Musculoskeletal: Yes: Muscle Weakness Edema: No Neurological: Yes: Lethargy Labs: CBC, BMP 12/29/17 12:50 12/29/17 12:50 Problem List - Problems (1) ESRD (end stage renal disease) on dialysis Code(s): N18.6 - END STAGE RENAL DISEASE; Z99.2 - DEPENDENCE ON RENAL DIALYSIS (2) Pneumonia Code(s): J18.9 - PNEUMONIA, UNSPECIFIED ORGANISM (3) Sepsis Code(s): A41.9 - SEPSIS, UNSPECIFIED ORGANISM Qualifiers: Sepsis type: sepsis due to unspecified organism Qualified Code(s): A41.9 - Sepsis, unspecified organism Assessment/Plan Current Medications Generic Name Dose Route Start Last Admin Trade Name Freq PRN Reason Stop Dose Admin Acetaminophen 650 mg 12/24/17 12:57 12/29/17 06:36 Tylenol Suppository - DE 650 mg Q6H PRN Administration FEVER Ascorbic Acid 500 mg 12/24/17 10:00 12/29/17 09:20 Vitamin C - PO 500 mg DAILY TYREE Administration Aspirin 81 mg 12/24/17 10:00 12/29/17 09:20 Asa - PO 81 mg DAILY TYREE Administration Atorvastatin Calcium 80 mg 12/24/17 22:00 12/28/17 22:33 Lipitor - PO 80 mg HS TYREE Administration Heparin Sodium (Porcine) 5,000 unit 12/24/17 06:00 12/29/17 06:34 Heparin - SQ 5,000 unit TID TYREE Administration Azithromycin 500 mg/ Dextrose 250 mls @ 250 mls/hr 12/24/17 10:00 12/29/17 09 :19 IVPB 250 mls/hr DAILY TYREE Administration Piperacillin Sod/Tazobactam 50 mls @ 100 mls/hr 12/25/17 18:15 12/29/17 09:19 Sod 2.25 gm/ Dextrose IVPB 100 mls/hr Q8H-IV TYREE Administration Dextrose/Sodium Chloride 1,000 mls @ 35 mls/hr 12/27/17 13:16 12/28/17 18:25 D5-1/2ns - IV 35 mls/hr ASDIR TYREE Administration Labetalol HCl 200 mg 12/26/17 18:30 12/29/17 09:20 Normodyne - PO 200 mg BID TYREE Administration Multivit/Ca Carb/B Cmplx/FA/Prenat 1 tablet 12/24/17 10:00 12/29/17 09:20 Nephro-Masha - PO 1 tablet DAILY TYREE Administration Ondansetron HCl 4 mg 12/24/17 01:54 Zofran Injection IVPUSH Q6H PRN NAUSEA Impression 1. ESRD 2. chol 3. hx CVA 4. HTN 5. altered mental status 6. failure to thrive 7. hyperkalemia 8. PNA 9. Sepsis Plan - HD today - cont abx - swallow eval appreicated - cont to monitor mental status - monitor bp closely, he did get the labetolol this morning Dr Naranjo
--- NOTE | 2017-12-29 14:53 | PN ---
Progress Note (short form) - Note Progress Note: much more alert today +wet cough tmax 100.5 Vital Signs Period Temp Pulse Resp BP Sys/Hu Pulse Ox Last 24 Hr 11.7 F-100.5 F 89-96 16-20 148-174/70-84 97-98 cor-rrr lungs decreased bs at bases abd soft,nt ext no edema CBC, BMP 12/29/17 12:50 12/29/17 12:50 Microbiology 12/23/17 21:40 Blood - Peripheral Venous Blood Culture - Final NO GROWTH AFTER 5 DAYS INCUBATION 12/23/17 21:24 Blood - Peripheral Venous Blood Culture - Final NO GROWTH AFTER 5 DAYS INCUBATION 12/23/17 22:01 Urine - Urine - Catheterized Urine Culture - Final NO GROWTH OBTAINED 12/23/17 22:01 Nasopharyngeal Swab Influenza Types A,B Antigen (MEREDITH) - Final 12/23/17 22:01 Nasopharyngeal Swab - Final a/p sepsis/fever in NHR-improved suspect HCAP given cough and cxray findings-left base infiltrate zosyn/zithromax day #6 d/c zithromax continue zosyn to complete 7 days cxray improved clinically improving repeat cbc stat- repeat blood cultures for fever esrd/hd- per renal Problem List - Problems (1) Sepsis Code(s): A41.9 - SEPSIS, UNSPECIFIED ORGANISM Qualifiers: Sepsis type: sepsis due to unspecified organism Qualified Code(s): A41.9 - Sepsis, unspecified organism (2) Pneumonia Code(s): J18.9 - PNEUMONIA, UNSPECIFIED ORGANISM (3) ESRD (end stage renal disease) on dialysis Code(s): N18.6 - END STAGE RENAL DISEASE; Z99.2 - DEPENDENCE ON RENAL DIALYSIS
[2017-12-29 15:57] LABS: BASO % 0.5 % (0-2.0); HEMATOCRIT 33.6 % (35.4-49); HEMOGLOBIN 11.4 GM/dL (11.7-16.9); LYMPH % 7.4 % (8-40); MCH 32.4 pg (25.7-33.7); MCHC 33.8 g/dl (32.0-35.9); MEAN CELL VOLUME 95.7 fl (80-96); MEAN PLT VOLUME 8.9 fl (7.5-11.1); NEUT % 82.1 % (42.8-82.8); PLATELET COUNT 204 K/MM3 (134-434); RBC 3.51 M/mm3 (4.00-5.60); RDW 14.2 % (11.9-15.9); WHITE BLOOD COUNT 4.2 K/mm3 (4.0-10.0)
[2017-12-29] MEDS: DEXTROSE 5%-0.45% SALINE 1,000 ML IV SCH (20:21)
[2017-12-29] MEDS ORDERED: INSULIN (NOVOLOG) ASPART 100 UNITS/ML 10ML VIAL ONE (21:21)
[2017-12-29] MEDS ORDERED: ACETAMINOPHEN 325 MG SUPP.RECT PR ONE (21:33)
[2017-12-29] MEDS: ATORVASTATIN CA 80 MG TABLET (FP) PO SCH (22:49)
--- NOTE | 2017-12-29 23:11 | CONSULT ---
Consult Consult Specialty:: general surgery Referred by:: Samantha AGARWAL Reason for Consultation:: IV access - History of Present Illness Chief Complaint: IV access History of Present Illness: 52 yo male presented to the ED from [facility] for evaluation fever and cough. He is unable to provide any history. As per family, he has had decreased appetite recently. Today he has been lethargic. He has a dry cough. He has not been noted to have vomiting or diarrhea. He received Vancomycin with his last HD. We were called becaus of limited IV access over the past 24 hours. He has a 22G in the right foot. - History Source History Provided By: Patient, Medical Record Limitations to Obtaining History: No Limitations - Past Medical History [employer]: Yes: CVA, Other (APHASIA) Cardio/Vascular: Yes: HTN Renal/: Yes: Renal Failure, Hemodialysis - Alcohol/Substance Use Hx Alcohol Use: No - Smoking History Smoking history: Unknown if ever smoked Have you smoked in the past 12 months: No Home Medications - Allergies Allergies/Adverse Reactions: Allergies Allergy/AdvReac Type Severity Reaction Status Date / Time No Known Allergies Allergy Verified 12/23/17 21:00 - Home Medications Home Medications: Ambulatory Orders Acetaminophen [Tylenol] 650 mg PO PRN PRN 12/23/17 Ascorbic Acid [Vitamin C -] 500 mg PO DAILY 12/23/17 Aspirin 81 mg PO DAILY 12/23/17 Atorvastatin Ca [Lipitor] 80 mg PO HS 12/23/17 Calcium Acetate [Phoslo -] 667 mg PO DAILY 12/23/17 Labetalol HCl [Normodyne -] 200 mg PO BID 12/23/17 Phenytoin Na Extended [Dilantin -] 200 mg PO DAILY 12/23/17 Phenytoin Na Extended [Dilantin -] 300 mg PO HS 12/23/17 Sertraline HCl [Zoloft -] 50 mg PO DAILY 12/23/17 Vitamin B Comp W-C [Nephro-Masha -] 1 tablet PO DAILY 12/23/17 Family Disease History - Family Disease History Family Disease History: Other: Sister (alive and well) Review of Systems - Review of Systems Constitutional: reports: Fever, Lethargy, Loss of Appetite. denies: Chills Eyes: denies: Blurred Vision, Recent Change in Vision HENT: denies: Difficult Swallowing, Throat Pain Neck: denies: Pain on Movement, Tenderness Cardiovascular: denies: Chest Pain, Palpitations Respiratory: denies: Cough, SOB Gastrointestinal: denies: Constipation, Diarrhea Genitourinary: denies: Dysuria, Flank Pain Breasts: denies: Discharge from Nipple, Pain Musculoskeletal: reports: Extremity Pain, Muscle Weakness Integumentary: denies: Eczema, Erythema Neurological: reports: Change in LOC, Weakness Endocrine: denies: Unexplained Weight Gain, Unexplained Weight Loss Hematology/Lymphatic: denies: Easily Bruised, Excessive Bleeding Psychiatric: denies: Anxiety, Depression Physical Exam Vital Signs: Vital Signs Temperature 102.4 F H 12/29/17 17:40 Pulse Rate 79 12/29/17 17:40 Respiratory Rate 20 12/29/17 17:40 Blood Pressure 169/68 12/29/17 17:40 O2 Sat by Pulse Oximetry (%) 97 12/29/17 09:00 Constitutional: Yes: No Distress, Calm, Diaphoresis Eyes: Yes: EOM Intact, PERRL HENT: Yes: Atraumatic, Normocephalic Neck: Yes: Supple, Trachea Midline Cardiovascular: Yes: Regular Rate and Rhythm, S1, S2 Respiratory: Yes: Regular, CTA Bilaterally, On Nasal O2 Gastrointestinal: Yes: Normal Bowel Sounds, Soft. No: Distention ...Rectal Exam: Yes: Deferred Renal/: No: CVA Tenderness - Left, CVA Tenderness - Right Extremities: Yes: Other. No: Cool, Cyanosis Edema: LUE: 2+, RUE: 2+, LLE: Trace, RLE: Trace Neurological: Yes: Alert Psychiatric: Yes: Alert Labs: CBC, BMP 12/29/17 15:30 12/29/17 12:50 Microbiology 12/23/17 21:40 Blood - Peripheral Venous Blood Culture - Final NO GROWTH AFTER 5 DAYS INCUBATION 12/23/17 21:24 Blood - Peripheral Venous Blood Culture - Final NO GROWTH AFTER 5 DAYS INCUBATION 12/23/17 22:01 Urine - Urine - Catheterized Urine Culture - Final NO GROWTH OBTAINED 12/23/17 22:01 Nasopharyngeal Swab Influenza Types A,B Antigen (MEREDITH) - Final 12/23/17 22:01 Nasopharyngeal Swab - Final Imaging - Results Ultrasound: Report Reviewed, Image Reviewed (UE dupelx is negative for DVT) Problem List - Problems (1) Acute metabolic encephalopathy Assessment/Plan: 52 yo male from [facility] with AMS. Placed peripheral access Left external jugular 20G. Right foot 22G already in place. Please recall if Central Venous access is needed in the future Code(s): G93.41 - METABOLIC ENCEPHALOPATHY (2) ESRD (end stage renal disease) on dialysis Code(s): N18.6 - END STAGE RENAL DISEASE; Z99.2 - DEPENDENCE ON RENAL DIALYSIS (3) Pneumonia Code(s): J18.9 - PNEUMONIA, UNSPECIFIED ORGANISM (4) Sepsis Code(s): A41.9 - SEPSIS, UNSPECIFIED ORGANISM Qualifiers: Sepsis type: sepsis due to unspecified organism Qualified Code(s): A41.9 - Sepsis, unspecified organism (5) CVA, old, aphasia Code(s): I69.320 - APHASIA FOLLOWING CEREBRAL INFARCTION (6) Hypertension Code(s): I10 - ESSENTIAL (PRIMARY) HYPERTENSION (7) Weakness generalized Code(s): R53.1 - WEAKNESS
--- NOTE | 2017-12-30 01:44 | HOSP ---
Subjective - Review of Symptoms Events since last encounter: Hospitalist Encounter Notified by RN, that the patient was noted to have swelling to his left arm. Subjective: Arrived to bedside, patient is aphasic- at baseline Left arm appears swollen, +radial pulse, no erythema, no warmth noted Plan: Stat Duplex of upper L-arm r/o DVT Elevate extremity Musculoskeletal: Yes: Joint Swelling (left) Physical Examination Vital Signs: Vital Signs Temperature 102.4 F H 12/29/17 17:40 Pulse Rate 79 12/29/17 17:40 Respiratory Rate 20 12/29/17 17:40 Blood Pressure 169/68 12/29/17 17:40 O2 Sat by Pulse Oximetry (%) 97 12/29/17 09:00 Constitutional: Yes: No Distress, Calm, Thin Eyes: Yes: Conjunctiva Clear, PERRL HENT: Yes: WNL, Atraumatic, Normocephalic Neck: Yes: WNL, Supple, Trachea Midline Cardiovascular: Yes: WNL, Regular Rate and Rhythm, S1, S2 Respiratory: Yes: On Nasal O2, Rhonchi Gastrointestinal: Yes: Normal Bowel Sounds, Soft ...Rectal Exam: Yes: Deferred Renal/: Yes: Incontinence Musculoskeletal: Yes: Joint Swelling (left arm) Edema: Yes Edema: LUE: 2+ Peripheral Pulses WNL: Yes Neurological: Yes: Aphasia (baseline) Labs: CBC, BMP 12/29/17 15:30 12/29/17 12:50 Hospitalist Encounter Outcome: US report- no DVT
[2017-12-30] MEDS: PIPERACILLIN/TAZOB 2.25 GM 2.25 GM in DEXTROSE 5%-WATER - 50 ML IVPB SCH (02:20)
[2017-12-30] MEDS: DEXTROSE 5%-0.45% SALINE 1,000 ML IV SCH ×2 (04:26→14:31)
[2017-12-30] MEDS: ACETAMINOPHEN 650 MG SUPP.RECT PR PRN ×2 (05:25→18:06)
[2017-12-30] MEDS: HEPARIN NA (PORCINE) 5,000 UNITS/ML 1ML VIAL SQ SCH ×3 (05:26→21:11)
[2017-12-30 08:38] LABS: HEMATOCRIT 31.6 % (35.4-49); HEMOGLOBIN 10.5 GM/dL (11.7-16.9); MCH 32.2 pg (25.7-33.7); MCHC 33.2 g/dl (32.0-35.9); MEAN PLT VOLUME 7.9 fl (7.5-11.1); PLATELET COUNT 195 K/MM3 (134-434); RBC 3.26 M/mm3 (4.00-5.60); RDW 13.7 % (11.9-15.9); WHITE BLOOD COUNT 3.3 K/mm3 (4.0-10.0)
--- NOTE | 2017-12-30 09:46 | PN ---
Progress Note, Physician Chief Complaint: ID Comfortable today - Current Medication List Current Medications: Active Medications Acetaminophen (Tylenol Suppository -) 650 mg RI Q6H PRN PRN Reason: FEVER Last Admin: 12/30/17 05:25 Dose: 650 mg Ascorbic Acid (Vitamin C -) 500 mg PO DAILY [facility] Last Admin: 12/29/17 09:20 Dose: 500 mg Aspirin (Asa -) 81 mg PO DAILY [facility] Last Admin: 12/29/17 09:20 Dose: 81 mg Atorvastatin Calcium (Lipitor -) 80 mg PO HS [facility] Last Admin: 12/29/17 22:49 Dose: 80 mg Heparin Sodium (Porcine) (Heparin -) 5,000 unit SQ TID [facility] Last Admin: 12/30/17 05:26 Dose: 5,000 unit Piperacillin Sod/Tazobactam (Sod 2.25 gm/ Dextrose) 50 mls @ 100 mls/hr IVPB Q8H-IV [facility] Last Admin: 12/30/17 02:20 Dose: 100 mls/hr Dextrose/Sodium Chloride (D5-1/2ns -) 1,000 mls @ 35 mls/hr IV ASDIR [facility] Last Admin: 12/30/17 04:26 Dose: 35 mls/hr Labetalol HCl (Normodyne -) 200 mg PO BID [facility] Last Admin: 12/29/17 22:49 Dose: 200 mg Multivit/Ca Carb/B Cmplx/FA/Prenat (Nephro-Masha -) 1 tablet PO DAILY [facility] Last Admin: 12/29/17 09:20 Dose: 1 tablet Ondansetron HCl (Zofran Injection) 4 mg IVPUSH Q6H PRN PRN Reason: NAUSEA - Objective Vital Signs: Vital Signs Temperature 98.5 F 12/30/17 09:14 Pulse Rate 83 12/30/17 09:14 Respiratory Rate 18 12/30/17 09:14 Blood Pressure 106/58 12/30/17 09:14 O2 Sat by Pulse Oximetry (%) 97 12/29/17 21:00 Constitutional: Yes: Well Nourished, No Distress Neck: Yes: WNL, Supple Cardiovascular: Yes: Regular Rate and Rhythm, S1, S2 Respiratory: Yes: WNL, Regular, CTA Bilaterally Gastrointestinal: Yes: Soft Labs: CBC, BMP 12/30/17 07:00 12/29/17 12:50 Assessment/Plan Microbiology 12/23/17 22:01 Urine - Urine - Catheterized Urine Culture - Final NO GROWTH OBTAINED 12/23/17 22:01 Nasopharyngeal Swab Influenza Types A,B Antigen (MEREDITH) - Final 12/23/17 22:01 Nasopharyngeal Swab - Final 12/23/17 21:40 Blood - Peripheral Venous Blood Culture - Final NO GROWTH AFTER 5 DAYS INCUBATION 12/23/17 21:24 Blood - Peripheral Venous Blood Culture - Final NO GROWTH AFTER 5 DAYS INCUBATION Laboratory Tests 12/25/17 12/30/17 07:55 07:00 WBC 3.3 L Hct 31.6 L Plt Count 195 Random Vancomycin 24.092 Assessment FUO ! Doubts PNA as source Leukopenia ? drug effect Plan STOP antibiotic and observe ESR CRP Reculture off antibiotics May have to do imagining as part of FUO workup Tatianna AGARWAL
--- NOTE | 2017-12-30 10:44 | PN ---
Progress Note, Physician - Current Medication List Current Medications: Active Medications Acetaminophen (Tylenol Suppository -) 650 mg LA Q6H PRN PRN Reason: FEVER Last Admin: 12/30/17 05:25 Dose: 650 mg Ascorbic Acid (Vitamin C -) 500 mg PO DAILY [facility] Last Admin: 12/29/17 09:20 Dose: 500 mg Aspirin (Asa -) 81 mg PO DAILY [facility] Last Admin: 12/29/17 09:20 Dose: 81 mg Atorvastatin Calcium (Lipitor -) 80 mg PO HS [facility] Last Admin: 12/29/17 22:49 Dose: 80 mg Heparin Sodium (Porcine) (Heparin -) 5,000 unit SQ TID [facility] Last Admin: 12/30/17 05:26 Dose: 5,000 unit Dextrose/Sodium Chloride (D5-1/2ns -) 1,000 mls @ 35 mls/hr IV ASDIR [facility] Last Admin: 12/30/17 04:26 Dose: 35 mls/hr Labetalol HCl (Normodyne -) 200 mg PO BID [facility] Last Admin: 12/29/17 22:49 Dose: 200 mg Multivit/Ca Carb/B Cmplx/FA/Prenat (Nephro-Masha -) 1 tablet PO DAILY [facility] Last Admin: 12/29/17 09:20 Dose: 1 tablet Ondansetron HCl (Zofran Injection) 4 mg IVPUSH Q6H PRN PRN Reason: NAUSEA - Objective Vital Signs: Vital Signs Temperature 98.5 F 12/30/17 09:14 Pulse Rate 83 12/30/17 09:14 Respiratory Rate 18 12/30/17 09:14 Blood Pressure 106/58 12/30/17 09:14 O2 Sat by Pulse Oximetry (%) 97 12/29/17 21:00 Labs: CBC, BMP 12/30/17 07:00 12/29/17 12:50 Assessment/Plan - Problems (1) Pneumonia Assessment/Plan: NPO--dysphagia diet jared nolan noted will give trial of food and monitor for and congestion iv abx for HCAP--stopped by id Code(s): J18.9 - PNEUMONIA, UNSPECIFIED ORGANISM (2) ESRD (end stage renal disease) on dialysis Assessment/Plan: HD per renal Code(s): N18.6 - END STAGE RENAL DISEASE; Z99.2 - DEPENDENCE ON RENAL DIALYSIS (3) Hypertension Assessment/Plan: metoprolol Code(s): I10 - ESSENTIAL (PRIMARY) HYPERTENSION (4) CVA, old, aphasia Assessment/Plan: dvt ppx Code(s): I69.320 - APHASIA FOLLOWING CEREBRAL INFARCTION
[2017-12-30] MEDS ORDERED: PT OWN MED DRAWER 7, Y5N ONE (11:56)
[2017-12-30] MEDS: ASCORBIC ACID 500 MG TABLET (FP) PO SCH (11:57)
[2017-12-30] MEDS: ASPIRIN 81 MG CHEWABLE TABLETS PO SCH (11:58)
[2017-12-30] MEDS: LABETALOL HCL 200 MG TABLET (FP) PO SCH ×2 (11:58→21:12)
[2017-12-30] MEDS: VITAMIN B COMP W-C 1 EA TABLET PO SCH (11:58)
--- NOTE | 2017-12-30 18:45 | PN ---
Progress Note, Physician History of Present Illness: Pt seen and examined at bedside. He is more awake and alert today. His mental status is improving. - Current Medication List Current Medications: Active Medications Acetaminophen (Tylenol Suppository -) 650 mg CO Q6H PRN PRN Reason: FEVER Last Admin: 12/30/17 18:06 Dose: 650 mg Ascorbic Acid (Vitamin C -) 500 mg PO DAILY [facility] Last Admin: 12/30/17 11:57 Dose: 500 mg Aspirin (Asa -) 81 mg PO DAILY [facility] Last Admin: 12/30/17 11:58 Dose: 81 mg Atorvastatin Calcium (Lipitor -) 80 mg PO HS [facility] Last Admin: 12/29/17 22:49 Dose: 80 mg Heparin Sodium (Porcine) (Heparin -) 5,000 unit SQ TID [facility] Last Admin: 12/30/17 14:30 Dose: 5,000 unit Dextrose/Sodium Chloride (D5-1/2ns -) 1,000 mls @ 35 mls/hr IV ASDIR [facility] Last Admin: 12/30/17 14:31 Dose: Not Given Labetalol HCl (Normodyne -) 200 mg PO BID [facility] Last Admin: 12/30/17 11:58 Dose: Not Given Multivit/Ca Carb/B Cmplx/FA/Prenat (Nephro-Masha -) 1 tablet PO DAILY [facility] Last Admin: 12/30/17 11:58 Dose: 1 tablet Ondansetron HCl (Zofran Injection) 4 mg IVPUSH Q6H PRN PRN Reason: NAUSEA - Objective Vital Signs: Vital Signs Temperature 98.3 F 12/30/17 18:30 Pulse Rate 93 H 12/30/17 18:30 Respiratory Rate 22 12/30/17 18:30 Blood Pressure 161/79 12/30/17 18:30 O2 Sat by Pulse Oximetry (%) 97 12/30/17 09:00 Constitutional: Yes: Calm Eyes: Yes: Conjunctiva Clear HENT: Yes: Atraumatic Cardiovascular: Yes: S1, S2 Respiratory: Yes: On Nasal O2 Gastrointestinal: Yes: Soft Genitourinary: Yes: Incontinence Musculoskeletal: Yes: Muscle Weakness Edema: Yes Edema: LLE: Trace, RLE: Trace Neurological: Yes: Pre-Existing Deficit Labs: CBC, BMP 12/30/17 07:00 12/29/17 12:50 Problem List - Problems (1) ESRD (end stage renal disease) on dialysis Code(s): N18.6 - END STAGE RENAL DISEASE; Z99.2 - DEPENDENCE ON RENAL DIALYSIS (2) Pneumonia Code(s): J18.9 - PNEUMONIA, UNSPECIFIED ORGANISM (3) Sepsis Code(s): A41.9 - SEPSIS, UNSPECIFIED ORGANISM Qualifiers: Sepsis type: sepsis due to unspecified organism Qualified Code(s): A41.9 - Sepsis, unspecified organism Assessment/Plan Current Medications Generic Name Dose Route Start Last Admin Trade Name Freq PRN Reason Stop Dose Admin Acetaminophen 650 mg 12/24/17 12:57 12/30/17 18:06 Tylenol Suppository - CO 650 mg Q6H PRN Administration FEVER Ascorbic Acid 500 mg 12/24/17 10:00 12/30/17 11:57 Vitamin C - PO 500 mg DAILY TYREE Administration Aspirin 81 mg 12/24/17 10:00 12/30/17 11:58 Asa - PO 81 mg DAILY TYREE Administration Atorvastatin Calcium 80 mg 12/24/17 22:00 12/29/17 22:49 Lipitor - PO 80 mg HS TYREE Administration Heparin Sodium (Porcine) 5,000 unit 12/24/17 06:00 12/30/17 14:30 Heparin - SQ 5,000 unit TID TYREE Administration Dextrose/Sodium Chloride 1,000 mls @ 35 mls/hr 12/27/17 13:16 12/30/17 14:31 D5-1/2ns - IV Not Given ASDIR TYREE Labetalol HCl 200 mg 12/26/17 18:30 12/30/17 11:58 Normodyne - PO Not Given BID TYREE Multivit/Ca Carb/B Cmplx/FA/Prenat 1 tablet 12/24/17 10:00 12/30/17 11:58 Nephro-Masha - PO 1 tablet DAILY TYREE Administration Ondansetron HCl 4 mg 12/24/17 01:54 Zofran Injection IVPUSH Q6H PRN NAUSEA Impression 1. ESRD 2. chol 3. hx CVA 4. HTN 5. altered mental status 6. failure to thrive 7. hyperkalemia 8. PNA 9. Sepsis Plan - d/c fluids - pt is tolerating diet - mental status is starting to improve - monitor BP - discussed with family Dr Naranjo
[2017-12-30] MEDS: ATORVASTATIN CA 80 MG TABLET (FP) PO SCH (21:11)
[2017-12-31] MEDS: ACETAMINOPHEN 650 MG SUPP.RECT PR PRN (03:02)
--- NOTE | 2017-12-31 09:31 | PN ---
Progress Note, Physician - Current Medication List Current Medications: Active Medications Acetaminophen (Tylenol Suppository -) 650 mg [place] Q6H PRN PRN Reason: FEVER Last Admin: 12/31/17 03:02 Dose: 650 mg Ascorbic Acid (Vitamin C -) 500 mg PO DAILY [facility] Last Admin: 12/30/17 11:57 Dose: 500 mg Aspirin (Asa -) 81 mg PO DAILY [facility] Last Admin: 12/30/17 11:58 Dose: 81 mg Atorvastatin Calcium (Lipitor -) 80 mg PO HS [facility] Last Admin: 12/30/17 21:11 Dose: 80 mg Labetalol HCl (Normodyne -) 200 mg PO BID [facility] Last Admin: 12/30/17 21:12 Dose: 200 mg Multivit/Ca Carb/B Cmplx/FA/Prenat (Nephro-Masha -) 1 tablet PO DAILY [facility] Last Admin: 12/30/17 11:58 Dose: 1 tablet Ondansetron HCl (Zofran Injection) 4 mg IVPUSH Q6H PRN PRN Reason: NAUSEA - Objective Vital Signs: Vital Signs Temperature 100.3 F H 12/31/17 07:19 Pulse Rate 94 H 12/31/17 07:19 Respiratory Rate 18 12/31/17 07:19 Blood Pressure 157/72 12/31/17 07:19 O2 Sat by Pulse Oximetry (%) 97 12/30/17 21:00 Cardiovascular: Yes: S1, S2 Respiratory: Yes: Diminished, Rhonchi Gastrointestinal: Yes: Normal Bowel Sounds, Soft Labs: CBC, BMP 12/30/17 07:00 12/29/17 12:50 Assessment/Plan - Problems (1) Pneumonia Assessment/Plan: NPO--dysphagia diet jared nolan noted will give trial of food and monitor for and congestion iv abx for HCAP--stopped by id Code(s): J18.9 - PNEUMONIA, UNSPECIFIED ORGANISM (2) ESRD (end stage renal disease) on dialysis Assessment/Plan: HD per renal Code(s): N18.6 - END STAGE RENAL DISEASE; Z99.2 - DEPENDENCE ON RENAL DIALYSIS (3) Hypertension Assessment/Plan: metoprolol Code(s): I10 - ESSENTIAL (PRIMARY) HYPERTENSION (4) CVA, old, aphasia Assessment/Plan: dvt ppx Code(s): I69.320 - APHASIA FOLLOWING CEREBRAL INFARCTION
[2017-12-31] MEDS: LABETALOL HCL 200 MG TABLET (FP) PO SCH ×2 (09:52→22:09)
[2017-12-31] MEDS: ASCORBIC ACID 500 MG TABLET (FP) PO SCH (09:52)
[2017-12-31] MEDS: ASPIRIN 81 MG CHEWABLE TABLETS PO SCH (09:52)
[2017-12-31] MEDS: VITAMIN B COMP W-C 1 EA TABLET PO SCH (09:52)
[2017-12-31 11:31] LABS: HEMOGLOBIN 10.2 GM/dL (11.7-16.9)
[2017-12-31 12:23] LABS: HEMATOCRIT 30.7 % (35.4-49); MCH 32.1 pg (25.7-33.7); MCHC 33.1 g/dl (32.0-35.9); MEAN CELL VOLUME 96.9 fl (80-96); MEAN PLT VOLUME 8.5 fl (7.5-11.1); PLATELET COUNT 215 K/MM3 (134-434); RBC 3.17 M/mm3 (4.00-5.60); RDW 13.9 % (11.9-15.9); WHITE BLOOD COUNT 7.1 K/mm3 (4.0-10.0)
[2017-12-31 14:25] LABS: PLATELET ESTIMATE ADEQUATE
--- NOTE | 2017-12-31 15:01 | PN ---
Progress Note, Physician History of Present Illness: Awake, alert appearing No acute distress Remains febrile WBC WNL ESR, CRP elevated Off antibiotics - Current Medication List Current Medications: Active Medications Acetaminophen (Tylenol Suppository -) 650 mg LA Q6H PRN PRN Reason: FEVER Last Admin: 12/31/17 03:02 Dose: 650 mg Ascorbic Acid (Vitamin C -) 500 mg PO DAILY [facility] Last Admin: 12/31/17 09:52 Dose: 500 mg Aspirin (Asa -) 81 mg PO DAILY [facility] Last Admin: 12/31/17 09:52 Dose: 81 mg Atorvastatin Calcium (Lipitor -) 80 mg PO HS [facility] Last Admin: 12/30/17 21:11 Dose: 80 mg Labetalol HCl (Normodyne -) 200 mg PO BID [facility] Last Admin: 12/31/17 09:52 Dose: 200 mg Multivit/Ca Carb/B Cmplx/FA/Prenat (Nephro-Masha -) 1 tablet PO DAILY [facility] Last Admin: 12/31/17 09:52 Dose: 1 tablet Ondansetron HCl (Zofran Injection) 4 mg IVPUSH Q6H PRN PRN Reason: NAUSEA - Objective Vital Signs: Vital Signs Temperature 99.1 F 12/31/17 10:00 Pulse Rate 95 H 12/31/17 10:00 Respiratory Rate 20 12/31/17 10:00 Blood Pressure 160/83 12/31/17 10:00 O2 Sat by Pulse Oximetry (%) 97 12/30/17 21:00 Constitutional: Yes: No Distress Cardiovascular: Yes: Regular Rate and Rhythm, S1, S2 Respiratory: Yes: CTA Bilaterally Gastrointestinal: Yes: Normal Bowel Sounds, Soft Labs: CBC, BMP 12/31/17 11:15 12/29/17 12:50 Assessment/Plan FUO ESRD Observe off antibiotics Reculture for persistant temp
[2017-12-31] MEDS ORDERED: SODIUM CHLORIDE 250 ML IV PRN (18:08)
--- NOTE | 2017-12-31 18:08 | PN ---
Progress Note, Physician History of Present Illness: Pt seen and examined at bedside. He is more awake and alert today. He is tolerating diet. - Current Medication List Current Medications: Active Medications Acetaminophen (Tylenol Suppository -) 650 mg [place] Q6H PRN PRN Reason: FEVER Last Admin: 12/31/17 03:02 Dose: 650 mg Ascorbic Acid (Vitamin C -) 500 mg PO DAILY [facility] Last Admin: 12/31/17 09:52 Dose: 500 mg Aspirin (Asa -) 81 mg PO DAILY [facility] Last Admin: 12/31/17 09:52 Dose: 81 mg Atorvastatin Calcium (Lipitor -) 80 mg PO HS [facility] Last Admin: 12/30/17 21:11 Dose: 80 mg Labetalol HCl (Normodyne -) 200 mg PO BID [facility] Last Admin: 12/31/17 09:52 Dose: 200 mg Multivit/Ca Carb/B Cmplx/FA/Prenat (Nephro-Masha -) 1 tablet PO DAILY [facility] Last Admin: 12/31/17 09:52 Dose: 1 tablet Ondansetron HCl (Zofran Injection) 4 mg IVPUSH Q6H PRN PRN Reason: NAUSEA - Objective Vital Signs: Vital Signs Temperature 99.1 F 12/31/17 10:00 Pulse Rate 95 H 12/31/17 10:00 Respiratory Rate 20 12/31/17 10:00 Blood Pressure 160/83 12/31/17 10:00 O2 Sat by Pulse Oximetry (%) 97 12/31/17 09:00 Constitutional: Yes: Calm Eyes: Yes: Conjunctiva Clear HENT: Yes: Atraumatic Cardiovascular: Yes: S1, S2 Respiratory: Yes: CTA Bilaterally Gastrointestinal: Yes: Soft Genitourinary: Yes: Incontinence Musculoskeletal: Yes: Muscle Weakness Edema: No Neurological: Yes: Other (more awake) Labs: CBC, BMP 12/31/17 11:15 12/29/17 12:50 Problem List - Problems (1) ESRD (end stage renal disease) on dialysis Code(s): N18.6 - END STAGE RENAL DISEASE; Z99.2 - DEPENDENCE ON RENAL DIALYSIS (2) Pneumonia Code(s): J18.9 - PNEUMONIA, UNSPECIFIED ORGANISM (3) Sepsis Code(s): A41.9 - SEPSIS, UNSPECIFIED ORGANISM Qualifiers: Sepsis type: sepsis due to unspecified organism Qualified Code(s): A41.9 - Sepsis, unspecified organism Assessment/Plan Current Medications Generic Name Dose Route Start Last Admin Trade Name Freq PRN Reason Stop Dose Admin Acetaminophen 650 mg 12/24/17 12:57 12/31/17 03:02 Tylenol Suppository - [place] 650 mg Q6H PRN Administration FEVER Ascorbic Acid 500 mg 12/24/17 10:00 12/31/17 09:52 Vitamin C - PO 500 mg DAILY TYREE Administration Aspirin 81 mg 12/24/17 10:00 12/31/17 09:52 Asa - PO 81 mg DAILY TYREE Administration Atorvastatin Calcium 80 mg 12/24/17 22:00 12/30/17 21:11 Lipitor - PO 80 mg HS TYREE Administration Labetalol HCl 200 mg 12/26/17 18:30 12/31/17 09:52 Normodyne - PO 200 mg BID TYREE Administration Multivit/Ca Carb/B Cmplx/FA/Prenat 1 tablet 12/24/17 10:00 12/31/17 09:52 Nephro-Masha - PO 1 tablet DAILY TYREE Administration Ondansetron HCl 4 mg 12/24/17 01:54 Zofran Injection IVPUSH Q6H PRN NAUSEA Impression 1. ESRD 2. chol 3. hx CVA 4. HTN 5. altered mental status 6. failure to thrive 7. hyperkalemia 8. PNA 9. Sepsis Plan - HD in am - pt tolerating diet - mental status is improving - cont abx per ID - monitor BP - discussed with family Dr Naranjo
[2017-12-31] MEDS: ATORVASTATIN CA 80 MG TABLET (FP) PO SCH (22:09)
[2018-01-01 09:06] LABS: HEMOGLOBIN 9.6 GM/dL (11.7-16.9); MCH 31.9 pg (25.7-33.7); MCHC 33.3 g/dl (32.0-35.9); MEAN CELL VOLUME 95.9 fl (80-96); MEAN PLT VOLUME 8.4 fl (7.5-11.1); PLATELET COUNT 256 K/MM3 (134-434); RBC 3.02 M/mm3 (4.00-5.60); WHITE BLOOD COUNT 6.8 K/mm3 (4.0-10.0)
[2018-01-01 10:30] LABS: CHLORIDE 102 mmol/L (98-107); POTASSIUM 4.1 mmol/L (3.5-5.1); SODIUM 141 mmol/L (136-145)
[2018-01-01 11:05] LABS: ANION GAP 11 (8-16); BLOOD UREA NITROGEN 63 mg/dL (7-18); CALCIUM 7.8 mg/dL (8.5-10.1); CO2 28 mmol/L (21-32); GLUCOSE,RANDOM 115 mg/dL (74-106)
[2018-01-01 11:11] LABS: CREATININE 11.5 mg/dL (0.7-1.3)
[2018-01-01] MEDS: ASCORBIC ACID 500 MG TABLET (FP) PO SCH (11:51)
[2018-01-01] MEDS: ASPIRIN 81 MG CHEWABLE TABLETS PO SCH (11:51)
[2018-01-01] MEDS: LABETALOL HCL 200 MG TABLET (FP) PO SCH ×2 (11:51→21:11)
[2018-01-01] MEDS: VITAMIN B COMP W-C 1 EA TABLET PO SCH (11:51)
[2018-01-01] MEDS ORDERED: SODIUM CHLORIDE 250 ML IV PRN (12:35)
--- NOTE | 2018-01-01 12:40 | PN ---
Progress Note, Physician Chief Complaint: AWAKE MORE ALERT TODAY REPORTS THAT HE FEELS GOOD NO FEVERS TODAY - Current Medication List Current Medications: Active Medications Acetaminophen (Tylenol Suppository -) 650 mg [place] Q6H PRN PRN Reason: FEVER Last Admin: 12/31/17 03:02 Dose: 650 mg Ascorbic Acid (Vitamin C -) 500 mg PO DAILY [facility] Last Admin: 01/01/18 11:51 Dose: 500 mg Aspirin (Asa -) 81 mg PO DAILY [facility] Last Admin: 01/01/18 11:51 Dose: 81 mg Atorvastatin Calcium (Lipitor -) 80 mg PO HS [facility] Last Admin: 12/31/17 22:09 Dose: 80 mg Sodium Chloride (Normal Saline -) 250 mls @ 3,000 mls/hr IV PRN PRN PRN Reason: Hypotension during Dialysis Labetalol HCl (Normodyne -) 200 mg PO BID [facility] Last Admin: 01/01/18 11:51 Dose: 200 mg Multivit/Ca Carb/B Cmplx/FA/Prenat (Nephro-Masha -) 1 tablet PO DAILY [facility] Last Admin: 01/01/18 11:51 Dose: 1 tablet Ondansetron HCl (Zofran Injection) 4 mg IVPUSH Q6H PRN PRN Reason: NAUSEA - Objective Vital Signs: Vital Signs Temperature 97.8 F 01/01/18 12:03 Pulse Rate 87 01/01/18 12:03 Respiratory Rate 20 01/01/18 12:03 Blood Pressure 132/69 01/01/18 12:03 O2 Sat by Pulse Oximetry (%) 99 12/31/17 21:00 Constitutional: Yes: No Distress Eyes: Yes: WNL HENT: Yes: WNL Neck: Yes: WNL Cardiovascular: Yes: WNL Respiratory: Yes: WNL Gastrointestinal: Yes: WNL Genitourinary: Yes: Other Musculoskeletal: Yes: Muscle Weakness Extremities: Yes: Other Edema: No Peripheral Pulses WNL: Yes Integumentary: Yes: Other Wound/Incision: Yes: Dressing Dry and Intact, Other Neurological: Yes: Pre-Existing Deficit, Weakness ...Motor Strength: LLE, RLE Psychiatric: Yes: Other Labs: CBC, BMP 01/01/18 08:10 01/01/18 08:10 Problem List - Problems (1) Acute metabolic encephalopathy Code(s): G93.41 - METABOLIC ENCEPHALOPATHY (2) ESRD (end stage renal disease) on dialysis Code(s): N18.6 - END STAGE RENAL DISEASE; Z99.2 - DEPENDENCE ON RENAL DIALYSIS (3) Pneumonia Code(s): J18.9 - PNEUMONIA, UNSPECIFIED ORGANISM (4) Sepsis Code(s): A41.9 - SEPSIS, UNSPECIFIED ORGANISM Qualifiers: Sepsis type: sepsis due to unspecified organism Qualified Code(s): A41.9 - Sepsis, unspecified organism (5) Altered mental status, unspecified Code(s): R41.82 - ALTERED MENTAL STATUS, UNSPECIFIED Qualifiers: Altered mental status type: unspecified Qualified Code(s): R41.82 - Altered mental status, unspecified (6) CVA, old, aphasia Code(s): I69.320 - APHASIA FOLLOWING CEREBRAL INFARCTION (7) Cervical lymphadenopathy Code(s): R59.0 - LOCALIZED ENLARGED LYMPH NODES (8) Hypertension Code(s): I10 - ESSENTIAL (PRIMARY) HYPERTENSION (9) Weakness generalized Code(s): R53.1 - WEAKNESS Assessment/Plan OFF ABX, MONITOR FOR 1 MORE DAY IF THERE ARE NO FEVERS BY TOMORROW CAN D/C BACK TO [place] [facility] PER RENAL IV ACCESS LEFT NECK PT EVAL
--- NOTE | 2018-01-01 16:22 | PN ---
Progress Note, Physician History of Present Illness: Pt seen and examined at bedside. He is more awake and alert today. - Current Medication List Current Medications: Active Medications Acetaminophen (Tylenol Suppository -) 650 mg [place] Q6H PRN PRN Reason: FEVER Last Admin: 12/31/17 03:02 Dose: 650 mg Ascorbic Acid (Vitamin C -) 500 mg PO DAILY [facility] Last Admin: 01/01/18 11:51 Dose: 500 mg Aspirin (Asa -) 81 mg PO DAILY [facility] Last Admin: 01/01/18 11:51 Dose: 81 mg Atorvastatin Calcium (Lipitor -) 80 mg PO HS [facility] Last Admin: 12/31/17 22:09 Dose: 80 mg Sodium Chloride (Normal Saline -) 250 mls @ 3,000 mls/hr IV PRN PRN PRN Reason: Hypotension during Dialysis Labetalol HCl (Normodyne -) 200 mg PO BID [facility] Last Admin: 01/01/18 11:51 Dose: 200 mg Multivit/Ca Carb/B Cmplx/FA/Prenat (Nephro-Masha -) 1 tablet PO DAILY [facility] Last Admin: 01/01/18 11:51 Dose: 1 tablet Ondansetron HCl (Zofran Injection) 4 mg IVPUSH Q6H PRN PRN Reason: NAUSEA - Objective Vital Signs: Vital Signs Temperature 98.3 F 01/01/18 15:30 Pulse Rate 80 01/01/18 15:30 Respiratory Rate 18 01/01/18 15:30 Blood Pressure 112/46 01/01/18 15:30 O2 Sat by Pulse Oximetry (%) 100 01/01/18 09:00 Constitutional: Yes: Calm Eyes: Yes: Conjunctiva Clear Neck: Yes: Supple Cardiovascular: Yes: S1, S2 Respiratory: Yes: CTA Bilaterally, On Nasal O2 Gastrointestinal: Yes: Soft Genitourinary: Yes: Incontinence Musculoskeletal: Yes: Muscle Weakness Edema: No Neurological: Yes: Pre-Existing Deficit Labs: CBC, BMP 01/01/18 08:10 01/01/18 08:10 Problem List - Problems (1) ESRD (end stage renal disease) on dialysis Code(s): N18.6 - END STAGE RENAL DISEASE; Z99.2 - DEPENDENCE ON RENAL DIALYSIS (2) Pneumonia Code(s): J18.9 - PNEUMONIA, UNSPECIFIED ORGANISM (3) Sepsis Code(s): A41.9 - SEPSIS, UNSPECIFIED ORGANISM Qualifiers: Sepsis type: sepsis due to unspecified organism Qualified Code(s): A41.9 - Sepsis, unspecified organism Assessment/Plan Current Medications Generic Name Dose Route Start Last Admin Trade Name Freq PRN Reason Stop Dose Admin Acetaminophen 650 mg 12/24/17 12:57 12/31/17 03:02 Tylenol Suppository - [place] 650 mg Q6H PRN Administration FEVER Ascorbic Acid 500 mg 12/24/17 10:00 01/01/18 11:51 Vitamin C - PO 500 mg DAILY TYREE Administration Aspirin 81 mg 12/24/17 10:00 01/01/18 11:51 Asa - PO 81 mg DAILY TYREE Administration Atorvastatin Calcium 80 mg 12/24/17 22:00 12/31/17 22:09 Lipitor - PO 80 mg HS TYREE Administration Sodium Chloride 250 mls @ 3,000 mls/hr 01/01/18 12:35 Normal Saline - IV PRN PRN Hypotension during Dialysis Labetalol HCl 200 mg 12/26/17 18:30 01/01/18 11:51 Normodyne - PO 200 mg BID TYREE Administration Multivit/Ca Carb/B Cmplx/FA/Prenat 1 tablet 12/24/17 10:00 01/01/18 11:51 Nephro-Masha - PO 1 tablet DAILY TYREE Administration Ondansetron HCl 4 mg 12/24/17 01:54 Zofran Injection IVPUSH Q6H PRN NAUSEA Impression 1. ESRD 2. chol 3. hx CVA 4. HTN 5. altered mental status 6. failure to thrive 7. hyperkalemia 8. PNA 9. Sepsis Plan - HD today - mental status improved - abx per ID - will follow - pt tolerating diet - monitor BP Dr Naranjo
[2018-01-01] MEDS: ATORVASTATIN CA 80 MG TABLET (FP) PO SCH (21:11)
[2018-01-02] MEDS ORDERED: PT OWN MED DRAWER 7, Y5N ONE (09:01)
[2018-01-02] MEDS: ASPIRIN 81 MG CHEWABLE TABLETS PO SCH (09:05)
[2018-01-02] MEDS: VITAMIN B COMP W-C 1 EA TABLET PO SCH (09:05)
[2018-01-02] MEDS: LABETALOL HCL 200 MG TABLET (FP) PO SCH ×2 (09:05→21:04)
[2018-01-02] MEDS: ASCORBIC ACID 500 MG TABLET (FP) PO SCH (09:05)
--- NOTE | 2018-01-02 11:47 | PN ---
Progress Note, [employer] - Note Progress Note: More alert. Slow to respond. Verbal, dysarthric with hypernasality. [place] speaking. Oriented to self,place, not time. Distractible. Selected Entries 01/01/18 01/01/18 01/01/18 01:13 06:41 07:35 Lunch Supper Temperature 99.4 F 97.9 F 98.1 F 01/01/18 01/01/18 01/01/18 12:03 15:30 18:00 Lunch 100% Supper Temperature 97.8 F 98.3 F 98.3 F 01/01/18 01/02/18 01/02/18 18:50 02:00 06:00 Lunch Supper 100% Temperature 97.6 F 98.0 F 01/02/18 09:00 Lunch Supper Temperature 98.1 F Laboratory Tests 01/01/18 08:10 WBC 6.8 Swallow reflex is delayed but quite brisk, per MBS. Coughs intermittently, with and without PO intake. Likely sec to delayed swallow onset. Suspect intermittent aspiration on saliva, po before swallow is triggered. Continue modified diet of puree./nectar thick liquid for now.
--- NOTE | 2018-01-02 12:44 | DS ---
Physical Examination Vital Signs: Vital Signs Temperature 98.1 F 01/02/18 09:00 Pulse Rate 89 01/02/18 09:00 Respiratory Rate 18 01/02/18 09:00 Blood Pressure 154/57 01/02/18 09:00 O2 Sat by Pulse Oximetry (%) 100 01/01/18 21:00 Constitutional: Yes: Calm Neck: Yes: Trachea Midline Cardiovascular: Yes: Regular Rate and Rhythm, S1, S2 Respiratory: Yes: CTA Bilaterally Gastrointestinal: Yes: Normal Bowel Sounds, Soft Edema: No Neurological: Yes: Alert Labs: CBC, BMP 01/01/18 08:10 01/01/18 08:10 Discharge Summary Reason For Visit: SEPSIS, END STAGE RENAL FAILURE Current Active Problems Acute metabolic encephalopathy (Acute) ESRD (end stage renal disease) on dialysis (Acute) Pneumonia (Acute) Sepsis (Acute) Hospital Course: PCP: Ban Singh (From [facility]) CHIEF COMPLAINT: Fever, cough HISTORY OF PRESENT ILLNESS: This is a 52 year old man who was sent to the ED from [facility] for evaluation fever and cough. He is unable to provide any history. As per family, he has had decreased appetite recently. Today he has been lethargic. He has a dry cough. He has not been noted to have vomiting or diarrhea. He received Vancomycin with his last HD. PAST MEDICAL HISTORY: ESRD CVA Hypertension Hyperlipidemia PAST SURGICAL HISTORY: Cervical discectomy and fusion AV fistula LUE in hospital: HD per renal HCAP completes 7 days of zosyn [place] Loraine varghese [facility] [place] diet with nectar thick liquid metal status much improved ready to go back to [place] Condition: Fair - Instructions Referrals: Ban Singh MD [Primary Care Provider] - [facility] - Home Medications Comprehensive Discharge Medication List: Ambulatory Orders Acetaminophen [Tylenol] 650 mg PO PRN PRN 12/23/17 Ascorbic Acid [Vitamin C -] 500 mg PO DAILY 12/23/17 Aspirin 81 mg PO DAILY 12/23/17 Atorvastatin Ca [Lipitor] 80 mg PO HS 12/23/17 Calcium Acetate [Phoslo -] 667 mg PO DAILY 12/23/17 Labetalol HCl [Normodyne -] 200 mg PO BID 12/23/17 Phenytoin Na Extended [Dilantin -] 200 mg PO DAILY 12/23/17 Phenytoin Na Extended [Dilantin -] 300 mg PO HS 12/23/17 Sertraline HCl [Zoloft -] 50 mg PO DAILY 12/23/17 Vitamin B Comp W-C [Nephro-Masha -] 1 tablet PO DAILY 12/23/17
--- NOTE | 2018-01-02 13:59 | PN ---
Progress Note, Physician History of Present Illness: Pt seen and examined at bedside. His mental status is markedly improved. - Current Medication List Current Medications: Active Medications Acetaminophen (Tylenol Suppository -) 650 mg [place] Q6H PRN PRN Reason: FEVER Last Admin: 12/31/17 03:02 Dose: 650 mg Ascorbic Acid (Vitamin C -) 500 mg PO DAILY [facility] Last Admin: 01/02/18 09:05 Dose: 500 mg Aspirin (Asa -) 81 mg PO DAILY [facility] Last Admin: 01/02/18 09:05 Dose: 81 mg Atorvastatin Calcium (Lipitor -) 80 mg PO HS [facility] Last Admin: 01/01/18 21:11 Dose: 80 mg Sodium Chloride (Normal Saline -) 250 mls @ 3,000 mls/hr IV PRN PRN PRN Reason: Hypotension during Dialysis Labetalol HCl (Normodyne -) 200 mg PO BID [facility] Last Admin: 01/02/18 09:05 Dose: 200 mg Multivit/Ca Carb/B Cmplx/FA/Prenat (Nephro-Masha -) 1 tablet PO DAILY [facility] Last Admin: 01/02/18 09:05 Dose: 1 tablet Ondansetron HCl (Zofran Injection) 4 mg IVPUSH Q6H PRN PRN Reason: NAUSEA - Objective Vital Signs: Vital Signs Temperature 98.1 F 01/02/18 09:00 Pulse Rate 89 01/02/18 09:00 Respiratory Rate 18 01/02/18 09:00 Blood Pressure 154/57 01/02/18 09:00 O2 Sat by Pulse Oximetry (%) 100 01/01/18 21:00 Constitutional: Yes: Calm Eyes: Yes: Conjunctiva Clear HENT: Yes: Atraumatic Neck: Yes: Supple Cardiovascular: Yes: S1, S2 Respiratory: Yes: CTA Bilaterally Gastrointestinal: Yes: Soft Genitourinary: Yes: Incontinence Musculoskeletal: Yes: Muscle Weakness Edema: No Neurological: Yes: Pre-Existing Deficit, Other (awake) Labs: CBC, BMP 01/01/18 08:10 01/01/18 08:10 Problem List - Problems (1) ESRD (end stage renal disease) on dialysis Code(s): N18.6 - END STAGE RENAL DISEASE; Z99.2 - DEPENDENCE ON RENAL DIALYSIS (2) Pneumonia Code(s): J18.9 - PNEUMONIA, UNSPECIFIED ORGANISM (3) Sepsis Code(s): A41.9 - SEPSIS, UNSPECIFIED ORGANISM Qualifiers: Sepsis type: sepsis due to unspecified organism Qualified Code(s): A41.9 - Sepsis, unspecified organism Assessment/Plan Current Medications Generic Name Dose Route Start Last Admin Trade Name Freq PRN Reason Stop Dose Admin Acetaminophen 650 mg 12/24/17 12:57 12/31/17 03:02 Tylenol Suppository - [place] 650 mg Q6H PRN Administration FEVER Ascorbic Acid 500 mg 12/24/17 10:00 01/02/18 09:05 Vitamin C - PO 500 mg DAILY TYREE Administration Aspirin 81 mg 12/24/17 10:00 01/02/18 09:05 Asa - PO 81 mg DAILY TYREE Administration Atorvastatin Calcium 80 mg 12/24/17 22:00 01/01/18 21:11 Lipitor - PO 80 mg HS TYREE Administration Sodium Chloride 250 mls @ 3,000 mls/hr 01/01/18 12:35 Normal Saline - IV PRN PRN Hypotension during Dialysis Labetalol HCl 200 mg 12/26/17 18:30 01/02/18 09:05 Normodyne - PO 200 mg BID TYREE Administration Multivit/Ca Carb/B Cmplx/FA/Prenat 1 tablet 12/24/17 10:00 01/02/18 09:05 Nephro-Masha - PO 1 tablet DAILY TYREE Administration Ondansetron HCl 4 mg 12/24/17 01:54 Zofran Injection IVPUSH Q6H PRN NAUSEA Impression 1. ESRD 2. chol 3. hx CVA 4. HTN 5. altered mental status 6. failure to thrive 7. hyperkalemia 8. PNA 9. Sepsis Plan - pt tolerated HD yesterday - he has HD scheduled as outpt - cont current meds - abx per ID - pt tolerating diet - monitor BP Dr Naranjo
[2018-01-02] MEDS: ATORVASTATIN CA 80 MG TABLET (FP) PO SCH (21:04)
--- NOTE | 2018-01-03 11:28 | DS ---
Physical Examination Vital Signs: Vital Signs Temperature 97.9 F 01/03/18 10:00 Pulse Rate 96 H 01/03/18 10:00 Respiratory Rate 18 01/03/18 10:00 Blood Pressure 157/68 01/03/18 10:00 O2 Sat by Pulse Oximetry (%) 100 01/02/18 21:00 Cardiovascular: Yes: S1, S2 Respiratory: Yes: Regular, CTA Bilaterally Gastrointestinal: Yes: Normal Bowel Sounds, Soft Musculoskeletal: Yes: Joint Stiffness, Other (contractures) Labs: CBC, BMP 01/01/18 08:10 01/01/18 08:10 Discharge Summary Reason For Visit: SEPSIS, END STAGE RENAL FAILURE Current Active Problems Acute metabolic encephalopathy (Acute) ESRD (end stage renal disease) on dialysis (Acute) Pneumonia (Acute) Sepsis (Acute) Hospital Course: 52 year old man who was sent to the ED from [facility] for evaluation fever and cough. He is unable to provide any history. As per family, he has had decreased appetite recently. Today he has been lethargic. He has a dry cough. He has not been noted to have vomiting or diarrhea. He received Vancomycin with his last HD. PAST MEDICAL HISTORY: ESRD CVA Hypertension Hyperlipidemia PAST SURGICAL HISTORY: Cervical discectomy and fusion AV fistula LUE in hospital: HD per renal HCAP completes 7 days of zosyn seen by Loraine varghese [facility] recommends pureed diet with nectar thick liquid metal status much improved ready to go back to [place] - Problems (1) Pneumonia Assessment/Plan: NPO--dysphagia diet loraine nolan noted will give trial of food and monitor for and congestion iv abx for HCAP--stopped by id Code(s): J18.9 - PNEUMONIA, UNSPECIFIED ORGANISM (2) ESRD (end stage renal disease) on dialysis Assessment/Plan: HD per renal Code(s): N18.6 - END STAGE RENAL DISEASE; Z99.2 - DEPENDENCE ON RENAL DIALYSIS (3) Hypertension Assessment/Plan: metoprolol Code(s): I10 - ESSENTIAL (PRIMARY) HYPERTENSION (4) CVA, old, aphasia Assessment/Plan: dvt ppx Code(s): I69.320 - APHASIA FOLLOWING CEREBRAL INFARCTION Condition: Fair - Instructions Referrals: Ban Singh MD [Primary Care Provider] - [facility]position: [facility] - Home Medications Comprehensive Discharge Medication List: Ambulatory Orders Acetaminophen [Tylenol] 650 mg PO PRN PRN 12/23/17 Ascorbic Acid [Vitamin C -] 500 mg PO DAILY 12/23/17 Aspirin 81 mg PO DAILY 12/23/17 Atorvastatin Ca [Lipitor] 80 mg PO HS 12/23/17 Calcium Acetate [Phoslo -] 667 mg PO DAILY 12/23/17 Labetalol HCl [Normodyne -] 200 mg PO BID 12/23/17 Phenytoin Na Extended [Dilantin -] 200 mg PO DAILY 12/23/17 Phenytoin Na Extended [Dilantin -] 300 mg PO HS 12/23/17 Sertraline HCl [Zoloft -] 50 mg PO DAILY 12/23/17 Vitamin B Comp W-C [Nephro-Masha -] 1 tablet PO DAILY 12/23/17
[2018-01-03 11:45] LABS: HEMATOCRIT 28.1 % (35.4-49); HEMOGLOBIN 9.4 GM/dL (11.7-16.9); MCHC 33.4 g/dl (32.0-35.9); MEAN CELL VOLUME 95.9 fl (80-96); MEAN PLT VOLUME 8.3 fl (7.5-11.1); PLATELET COUNT 309 K/MM3 (134-434); RBC 2.93 M/mm3 (4.00-5.60); RDW 13.9 % (11.9-15.9); WHITE BLOOD COUNT 7.2 K/mm3 (4.0-10.0)
[2018-01-03 12:13] LABS: ANION GAP 8 (8-16); BLOOD UREA NITROGEN 59 mg/dL (7-18); CALCIUM 7.9 mg/dL (8.5-10.1); CHLORIDE 101 mmol/L (98-107); CO2 30 mmol/L (21-32); GLUCOSE,RANDOM 178 mg/dL (74-106); POTASSIUM 4.1 mmol/L (3.5-5.1); SODIUM 139 mmol/L (136-145)
[2018-01-03] MEDS ORDERED: SODIUM CHLORIDE 250 ML IV PRN (12:30)
[2018-01-03] MEDS ORDERED: EPOETIN ALFA 3,000 UNIT/1 ML ML IVPUSH ONE (12:30)
[2018-01-03 12:36] LABS: CREATININE 11.1 mg/dL (0.7-1.3)
--- NOTE | 2018-01-03 12:42 | PN ---
Progress Note, Physician History of Present Illness: Pt seen and examined at bedside. He is currently getting HD. His mental status is back to baseline. - Current Medication List Current Medications: Active Medications Acetaminophen (Tylenol Suppository -) 650 mg [place] Q6H PRN PRN Reason: FEVER Last Admin: 12/31/17 03:02 Dose: 650 mg Ascorbic Acid (Vitamin C -) 500 mg PO DAILY [facility] Last Admin: 01/02/18 09:05 Dose: 500 mg Aspirin (Asa -) 81 mg PO DAILY [facility] Last Admin: 01/02/18 09:05 Dose: 81 mg Atorvastatin Calcium (Lipitor -) 80 mg PO HS [facility] Last Admin: 01/02/18 21:04 Dose: 80 mg Sodium Chloride (Normal Saline -) 250 mls @ 3,000 mls/hr IV PRN PRN PRN Reason: Hypotension during Dialysis Labetalol HCl (Normodyne -) 200 mg PO BID [facility] Last Admin: 01/02/18 21:04 Dose: 200 mg Multivit/Ca Carb/B Cmplx/FA/Prenat (Nephro-Masha -) 1 tablet PO DAILY [facility] Last Admin: 01/02/18 09:05 Dose: 1 tablet Ondansetron HCl (Zofran Injection) 4 mg IVPUSH Q6H PRN PRN Reason: NAUSEA - Objective Vital Signs: Vital Signs Temperature 97.9 F 01/03/18 10:00 Pulse Rate 79 01/03/18 11:35 Respiratory Rate 18 01/03/18 11:35 Blood Pressure 120/54 01/03/18 11:35 O2 Sat by Pulse Oximetry (%) 100 01/02/18 21:00 Constitutional: Yes: Calm Eyes: Yes: Conjunctiva Clear HENT: Yes: Atraumatic Neck: Yes: Supple Cardiovascular: Yes: S1, S2 Respiratory: Yes: CTA Bilaterally Gastrointestinal: Yes: Soft Genitourinary: Yes: Incontinence Musculoskeletal: Yes: WNL Edema: No Neurological: Yes: Pre-Existing Deficit Labs: CBC, BMP 01/03/18 10:25 01/03/18 10:25 Problem List - Problems (1) ESRD (end stage renal disease) on dialysis Code(s): N18.6 - END STAGE RENAL DISEASE; Z99.2 - DEPENDENCE ON RENAL DIALYSIS (2) Pneumonia Code(s): J18.9 - PNEUMONIA, UNSPECIFIED ORGANISM (3) Sepsis Code(s): A41.9 - SEPSIS, UNSPECIFIED ORGANISM Qualifiers: Sepsis type: sepsis due to unspecified organism Qualified Code(s): A41.9 - Sepsis, unspecified organism Assessment/Plan Current Medications Generic Name Dose Route Start Last Admin Trade Name Freq PRN Reason Stop Dose Admin Acetaminophen 650 mg 12/24/17 12:57 12/31/17 03:02 Tylenol Suppository - [place] 650 mg Q6H PRN Administration FEVER Ascorbic Acid 500 mg 12/24/17 10:00 01/02/18 09:05 Vitamin C - PO 500 mg DAILY TYREE Administration Aspirin 81 mg 12/24/17 10:00 01/02/18 09:05 Asa - PO 81 mg DAILY TYREE Administration Atorvastatin Calcium 80 mg 12/24/17 22:00 01/02/18 21:04 Lipitor - PO 80 mg HS TYREE Administration Sodium Chloride 250 mls @ 3,000 mls/hr 01/01/18 12:35 Normal Saline - IV PRN PRN Hypotension during Dialysis Labetalol HCl 200 mg 12/26/17 18:30 01/02/18 21:04 Normodyne - PO 200 mg BID TYREE Administration Multivit/Ca Carb/B Cmplx/FA/Prenat 1 tablet 12/24/17 10:00 01/02/18 09:05 Nephro-Masha - PO 1 tablet DAILY TYREE Administration Ondansetron HCl 4 mg 12/24/17 01:54 Zofran Injection IVPUSH Q6H PRN NAUSEA Impression 1. ESRD 2. chol 3. hx CVA 4. HTN 5. altered mental status 6. failure to thrive 7. hyperkalemia 8. PNA 9. Sepsis Plan - HD today - pt has HD scheduled as outpt - mental status at baseline - pt tolerating diet - monitor BP Dr Naranjo
[2018-01-03] MEDS: VITAMIN B COMP W-C 1 EA TABLET PO SCH (15:16)
[2018-01-03] MEDS: ASPIRIN 81 MG CHEWABLE TABLETS PO SCH (15:16)
[2018-01-03] MEDS: ASCORBIC ACID 500 MG TABLET (FP) PO SCH (15:16)
[2018-01-03] MEDS: LABETALOL HCL 200 MG TABLET (FP) PO SCH (15:19)
[2018-01-03 15:29] VITALS: BP 134/57; PULSE 72; TEMP 98.1
[2018-01-03 16:20] LABS: CREATININE 3.2 mg/dL (0.7-1.3)
== END 2018-01-03 16:45 | DRG 720 ==
LOC: JER 20:21 → JERBED 23:27 → J5S 12-24 02:18
PROVIDERS: ADMIT Internal Medicine; ATTEND Family Medicine
PROC: 5A1D70Z Performance of Urinary Filtration, Intermittent, Less than 6 Hours Per Day (ICD-10-PCS; principal; 2017-12-24)
DX: A41.9 Sepsis, unspecified organism (principal); G93.41 Metabolic encephalopathy; I12.0 Hypertensive chronic kidney disease with stage 5 chronic kidney disease or end stage renal disease; N18.6 End stage renal disease; J18.9 Pneumonia, unspecified organism; E87.5 Hyperkalemia; R13.10 Dysphagia, unspecified; E87.1 Hypo-osmolality and hyponatremia; R62.7 Adult failure to thrive; I69.320 Aphasia following cerebral infarction; Z99.2 Dependence on renal dialysis; J06.9 Acute upper respiratory infection, unspecified; E78.5 Hyperlipidemia, unspecified; R59.0 Localized enlarged lymph nodes; G40.909 Epilepsy, unspecified, not intractable, without status epilepticus
CPT/HCPCS: 36415; 71045-TC-FY; 74230-TC-FY; 80048; 80053; 80185; 81003; 81015; 82550; 82553; 82565; 82962; 83605; 83735; 84100; 84484; 84520; 85025; 85027; 85651; 86140; 86704; 86706; 86708; 87040; 87086; 87340; 87804; 92611-GN; 93005; 93010; 93971; 97116-GP; 97161-GP; 99284-25; G0480; J0131; J0885; J1644; J7030

== ENCOUNTER 2018-03-30 16:56 | Inpatient (IN) | payer OTHER ==
[2018-03-30 17:12] VITALS: BMI 22.6
--- NOTE | 2018-03-30 17:17 | PDOC ---
*Physical Exam - Vital Signs Last Vital Signs Temp Pulse Resp BP Pulse Ox 98 F 66 18 200/88 100 03/30/18 17:09 03/30/18 17:09 03/30/18 17:09 03/30/18 17:09 03/30/18 17:09 ED Treatment Course - LABORATORY CBC & Chemistry Diagram: 03/30/18 17:40 03/31/18 00:21 Medical Decision Making - Medical Decision Making 03/30/18 18:25 Pt seen by Midlevel Provider under my direct supervision Pt interviewed and examined Ancillary studies reviewed Pt signed out to night team Will admit Consider CT scan Will need dialysis I agree with plan as outlined by Midlevel Provider *DC/Admit/Observation/Transfer Diagnosis at time of Disposition: ESRD (end stage renal disease) on dialysis, Hyperkalemia, Elevated lipase - Discharge Dispostion Condition at time of disposition: Guarded - Referrals - Patient Instructions - Post Discharge Activity
--- NOTE | 2018-03-30 17:33 | PDOC ---
History of Present Illness - General Chief Complaint: Nausea/Vomiting Stated Complaint: VOMITING Time Seen by Provider: 03/30/18 17:14 History Source: Patient Exam Limitations: No Limitations - History of Present Illness Initial Comments: 03/30/18 18:36 Patient is a 52-year-old male past medical history of CVA with residual weakness and aphasia, diabetes, end-stage renal disease on dialysis, hypertension, who presents to the emergency department from [facility] for vomiting. Patient's sister is at bedside and states that the last time this happened to him approximately 2 months ago, it was due to constipation as he does not want to use the adult brief in the long term. Patient was supposed to be dialyzed today. Patient afebrile in the emergency department blood pressure currently 200/88. ROS unobtainable d/t pt condition. Past History - Travel Traveled outside of the country in the last 30 days: No Close contact w/someone who was outside of country & ill: No - Past Medical History Allergies/Adverse Reactions: Allergies Allergy/AdvReac Type Severity Reaction Status Date / Time No Known Allergies Allergy Verified 03/30/18 17:08 Home Medications: Ambulatory Orders Acetaminophen [Tylenol] 650 mg PO PRN PRN 12/23/17 Ascorbic Acid [Vitamin C -] 500 mg PO DAILY 12/23/17 Aspirin 81 mg PO DAILY 12/23/17 Atorvastatin Ca [Lipitor] 80 mg PO HS 12/23/17 Calcium Acetate [Phoslo -] 667 mg PO TID 12/23/17 Labetalol HCl [Normodyne -] 200 mg PO BID 12/23/17 Phenytoin Na Extended [Dilantin -] 350 mg PO BID 12/23/17 Sertraline HCl [Zoloft -] 50 mg PO DAILY 12/23/17 Vitamin B Comp W-C [Nephro-Masha -] 1 tablet PO DAILY 12/23/17 Anemia: No Asthma: No Cancer: No Cardiac Disorders: No CVA: Yes (X 2 WITH RESIDUAL WEAKNESS AND APHASIA.) COPD: No CHF: No Dementia: No Diabetes: Yes Dialysis: Yes () GI Disorders: No Disorders: No HTN: Yes Hypercholesterolemia: Yes Kidney Stones: Yes Liver Disease: No Seizures: No Thyroid Disease: No - Surgical History Abdominal Surgery: No Appendectomy: No Cardiac Surgery: No Cholecystectomy: No Lung Surgery: No Neurologic Surgery: No Orthopedic Surgery: No - Suicide/Smoking/Psychosocial Hx Smoking History: Unknown if ever smoked Have you smoked in the past 12 months: No Information on smoking cessation initiated: No Hx Alcohol Use: No Drug/Substance Use Hx: No Substance Use Type: None Hx Substance Use Treatment: No Review of Systems - Review of Systems Able to Perform ROS?: No (Non-verbal) *Physical Exam - Vital Signs Last Vital Signs Temp Pulse Resp BP Pulse Ox 98 F 66 18 200/88 100 03/30/18 17:09 03/30/18 17:03/30/18 17:03/30/18 17:09 03/30/18 17:09 - Physical Exam Comments: 03/30/18 18:34 GENERAL: Well developed, well nourished. Awake and alert. No acute distress. HEENT: Normocephalic, atraumatic. PERRLA, EOMI. No conjunctival pallor. Sclera are non- icteric. Moist mucous membranes. Oropharynx is clear. NECK: Supple. Full ROM. No JVD. Carotid pulses 2+ and symmetric, without bruits. No thyromegaly. No lymphadenopathy. CARDIOVASCULAR: Regular rate and rhythm. No murmurs, rubs, or gallops. Distal pulses are 2+ and symmetric. PULMONARY: No evidence of respiratory distress. Lungs clear to auscultation bilaterally. No wheezing, rales or rhonchi. ABDOMINAL: Soft. Non-tender. Non-distended. No rebound or guarding. No organomegaly. Normoactive bowel sounds. MUSCULOSKELETAL Normal range of motion at all joints. No bony deformities or tenderness. No CVA tenderness. EXTREMITIES: No cyanosis. No clubbing. No edema. No calf tenderness. SKIN: Warm and dry. Normal capillary refill. No rashes. No jaundice. NEUROLOGICAL: Alert, awake, appropriate. Cranial nerves 2-12 intact. No deficits to light touch and temperature in face, upper extremities and lower extremities. No motor deficits in the in face, upper extremities and lower extremities. Normoreflexic in the upper and lower extremities. Normal speech. Toes are down- going bilaterally. Gait is normal without ataxia. PSYCHIATRIC: Cooperative. Good eye contact. Appropriate mood and affect. ED Treatment Course - LABORATORY CBC & Chemistry Diagram: 03/30/18 17:40 03/31/18 00:21 Medical Decision Making - Medical Decision Making 03/30/18 17:38 Patient is a 52-year-old male past medical history of end-stage renal disease, needs to be dialyzed today, who presents to the emergency department today with vomiting as per the long term. On exam patient's belly is soft and nontender , does not react when I palpate. Belly is nondistended. Lab work, chest x-ray, EKG, abdominal x-ray, IV fluids ordered at this time. We'll reevaluate 03/30/18 19:00 EKG: Rate 63 bpm, Normal intervals, normal axis. T-waves beginning to peak Lipase 803. Will order RUQ US at this time. Pancreatitis vs bhavna vs cholangitis. Sign out given to Bernardo Begum NP. Pt most likely to be admitted given elevated lipase, plus missing dialysis. *DC/Admit/Observation/Transfer Diagnosis at time of Disposition: ESRD (end stage renal disease) on dialysis, Hyperkalemia, Elevated lipase - Discharge Dispostion Condition at time of disposition: Guarded Decision to Admit order: Yes - Referrals - Patient Instructions - Post Discharge Activity
[2018-03-30 18:04] LABS: BASO % 1.3 % (0-2.0); EOS % 7.2 % (0-4.5); HEMATOCRIT 35.1 % (35.4-49); HEMOGLOBIN 11.6 GM/dL (11.7-16.9); LYMPH % 16.9 % (8-40); MCH 30.7 pg (25.7-33.7); MCHC 33.2 g/dl (32.0-35.9); MEAN CELL VOLUME 92.6 fl (80-96); MONO % 9.9 % (3.8-10.2); NEUT % 64.7 % (42.8-82.8); PLATELET COUNT 236 K/MM3 (134-434); RBC 3.79 M/mm3 (4.00-5.60); RDW 13.8 % (11.9-15.9); WHITE BLOOD COUNT 4.5 K/mm3 (4.0-10.0)
[2018-03-30 18:15] LABS: INR 0.99 (0.82-1.09); PROTHROMBIN TIME (PATIENT) 11.2 SEC (9.7-13.0)
[2018-03-30 18:35] LABS: LIPASE 803 U/L (73-393)
[2018-03-30 18:56] LABS: ALBUMIN 3.3 g/dl (3.4-5.0); ANION GAP 12 (8-16); BILIRUBIN,TOTAL 0.3 mg/dL (0.2-1.0); BLOOD UREA NITROGEN 56 mg/dL (7-18); CALCIUM 8.3 mg/dL (8.5-10.1); CHLORIDE 94 mmol/L (98-107); CO2 24 mmol/L (21-32); GLUCOSE,RANDOM 127 mg/dL (74-106); POTASSIUM 5.8 mmol/L (3.5-5.1); SGOT/AST 34 U/L (15-37); SGPT/ALT 25 U/L (12-78); SODIUM 130 mmol/L (136-145); TOT PROT 7.7 g/dl (6.4-8.2)
[2018-03-30 18:57] LABS: ALK PHOS 243 U/L (45-117)
[2018-03-30 18:59] LABS: CREATININE 8.5 mg/dL (0.7-1.3)
--- NOTE | 2018-03-30 19:10 | PDOC ---
*Physical Exam - Vital Signs Last Vital Signs Temp Pulse Resp BP Pulse Ox 98 F 66 18 200/88 100 03/30/18 17:09 03/30/18 17:09 03/30/18 17:09 03/30/18 17:09 03/30/18 17:09 ED Treatment Course - LABORATORY CBC & Chemistry Diagram: 03/30/18 17:40 03/30/18 17:40 - ADDITIONAL ORDERS Additional order review: Laboratory Results 03/30/18 03/30/18 03/30/18 17:40 17:40 17:40 PT with INR INR Sodium 130 L Potassium 5.8 H D Chloride 94 L Carbon Dioxide 24 Anion Gap 12 BUN 56 H Creatinine 8.5 H* Creat Clearance w eGFR 6.64 Random Glucose 127 H D Lactic Acid 0.7 Calcium 8.3 L Total Bilirubin 0.3 AST 34 ALT 25 D Alkaline Phosphatase 243 H Creatine Kinase 127 Troponin I < 0.02 D Total Protein 7.7 Albumin 3.3 L Lipase 803 H 03/30/18 17:40 PT with INR 11.20 INR 0.99 Sodium Potassium Chloride Carbon Dioxide Anion Gap BUN Creatinine Creat Clearance w eGFR Random Glucose Lactic Acid Calcium Total Bilirubin AST ALT Alkaline Phosphatase Creatine Kinase Troponin I Total Protein Albumin Lipase 03/30/18 17:40 RBC 3.79 L MCV 92.6 MCHC 33.2 RDW 13.8 MPV 8.0 Neutrophils % 64.7 D Lymphocytes % 16.9 D Monocytes % 9.9 Eosinophils % 7.2 H D Basophils % 1.3 Medical Decision Making - Medical Decision Making 03/30/18 19:44 Received signout from SARITHA Gunn. 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 Patient similar episode 2 months ago was found to be constipated at that time. Symptoms resolved after receiving enemas. Patient did not go to dialysis today due to vomiting and laboratory testing is notable for creatinine 3.5, BUN-56, potassium 5.8, lipase 803. Elevated lipase likely due to end-stage renal not to pancreatitis given normal abdominal exam. Patient is currently pending x-rays and ultrasounds to evaluate for cholangitis , cholelithiasis. Patient is likely to be admitted given missing dialysis and elevated lipase. 06/29/18 22:17 Elevated potassium with mildly peaked T waves. I will treat with dextrose, Regular Insulin, calcium, bicarbonate. Patient returned from ultrasound and is currently vomiting. I will add Zofran to help control vomiting. 03/30/18 22:37 Right upper quadrant ultrasound as read by Dr. Wren: No definite biliary calculus is noted. There is no definite sonographic evidence of acute cholecystitis. Common bile duct diameter appears within normal l limits measuring 0.4 cm. The liver and partially visualized pancreas to straight no obvious abnormality. There is no right hydronephrosis. The right renal cortex chemistries diffusely increased echogenicity suggestive of medical nephropathy. There is no free intraperitoneal fluid within the right upper quadrant. No prior abdominal imaging studies are available at this facility for direct comparison. Impression: No definite evidence of biliary tract pathology There is partial imaging of a right pleural effusion. Right kidney demonstrates altered cortical echogenicity suggestive of medical renal disease. 03/30/18 22:58 03/30/18 23:[address] Rodriguez who accepts patient for observation *DC/Admit/Observation/Transfer Diagnosis at time of Disposition: ESRD (end stage renal disease) on dialysis, Hyperkalemia, Elevated lipase - Discharge Dispostion Decision to Admit order: Yes - Referrals Referrals: Edilberto Carmichael MD [Primary Care Provider] - - Patient Instructions - Post Discharge Activity
[2018-03-30] MEDS ORDERED: SODIUM POLYSTYRENE SULFONATE 15 GM/60 ML BOTTLE PO ONE (20:39)
[2018-03-30] MEDS ORDERED: INSULIN REGULAR HUMAN 100 UNITS/ML *VIAL IVPUSH ONE (20:39)
[2018-03-30] MEDS ORDERED: DEXTROSE 50%-WATER - 25 GM/50 ML VIAL IVPUSH ONE (20:39)
[2018-03-30] MEDS ORDERED: CALCIUM GLUCONATE 10% - 1,000 MG/10 ML VIAL IVPUSH ONE (20:39)
[2018-03-30] MEDS ORDERED: ONDANSETRON 4 MG/2 ML VIAL IVPUSH ONE (22:00)
[2018-03-30] MEDS ORDERED: DEXTROSE 50%-WATER 25 GM/50 ML DISP.SYRIN ONE (22:16)
[2018-03-30] MEDS ORDERED: ONDANSETRON 4 MG/2 ML VIAL ONE (22:16)
[2018-03-30] MEDS ORDERED: SODIUM POLYSTYRENE SULFONATE 15 GM/60 ML BOTTLE ONE (22:16)
[2018-03-30] MEDS ORDERED: INSULIN REGULAR HUMAN 100 UNITS/ML *VIAL ONE (22:17)
[2018-03-30] MEDS ORDERED: SODIUM BICARBONATE 8.4% 50 MEQ/50 ML DISP.SYRIN IVPUSH ONE (22:17)
[2018-03-30] MEDS ORDERED: CALCIUM GLUCONATE 10% - 1,000 MG/10 ML VIAL ONE (22:18)
[2018-03-30] MEDS ORDERED: SODIUM BICARBONATE 8.4% - 50 ML ONE (22:41)
--- NOTE | 2018-03-31 00:01 | HP ---
Admitting History and Physical - Admission Chief Complaint: missing dialysis History of Present Illness: 52 y/o male patient presented to the hospital after the patient has missed dialysis session today. 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, Other (APHASIA) Cardiovascular: Yes: HTN Renal/: Yes: Renal Failure, Hemodialysis - Smoking History Smoking history: Unknown if ever smoked Have you smoked in the past 12 months: No - Alcohol/Substance Use Hx Alcohol Use: No Home Medications - Allergies Allergies/Adverse Reactions: Allergies Allergy/AdvReac Type Severity Reaction Status Date / Time No Known Allergies Allergy Verified 03/30/18 17:08 - Home Medications Home Medications: Ambulatory Orders Acetaminophen [Tylenol] 650 mg PO PRN PRN 12/23/17 Ascorbic Acid [Vitamin C -] 500 mg PO DAILY 12/23/17 Aspirin 81 mg PO DAILY 12/23/17 Atorvastatin Ca [Lipitor] 80 mg PO HS 12/23/17 Calcium Acetate [Phoslo -] 667 mg PO DAILY 12/23/17 Labetalol HCl [Normodyne -] 200 mg PO BID 12/23/17 Phenytoin Na Extended [Dilantin -] 200 mg PO DAILY 12/23/17 Phenytoin Na Extended [Dilantin -] 300 mg PO HS 12/23/17 Sertraline HCl [Zoloft -] 50 mg PO DAILY 12/23/17 Vitamin B Comp W-C [Nephro-Masha -] 1 tablet PO DAILY 12/23/17 Family Disease History - Family Disease History Family Disease History: Other: Sister (alive and well) Review of Systems Unable to obtain ROS, reason: patient is aphasic Physical Examination Vital Signs: Vital Signs Temperature 98 F 03/30/18 17:09 Pulse Rate 66 03/30/18 17:09 Respiratory Rate 18 03/30/18 17:09 Blood Pressure 200/88 03/30/18 17:09 O2 Sat by Pulse Oximetry (%) 100 03/30/18 17:09 Constitutional: Yes: Well Nourished, No Distress, Calm Eyes: Yes: Conjunctiva Clear, EOM Intact HENT: Yes: WNL, Atraumatic, Normocephalic Neck: Yes: WNL, Supple, Trachea Midline Cardiovascular: Yes: WNL, Regular Rate and Rhythm, S1, S2 Respiratory: Yes: WNL, Regular, CTA Bilaterally Gastrointestinal: Yes: WNL, Normal Bowel Sounds, Soft ...Rectal Exam: Yes: Deferred Renal/: Yes: Anuria Musculoskeletal: Yes: WNL Edema: LLE: Trace, RLE: Trace Peripheral Pulses: Left Radial: 0, Right Radial: 0, Left Femoral: 0, Right Femoral: 0 Integumentary: Yes: WNL Labs: CBC, BMP 03/30/18 17:40 03/30/18 17:40 Imaging - Results Chest X-ray: Image Reviewed Cat Scan: Report Reviewed Ultrasound: Report Reviewed, Image Reviewed Problem List - Problems (1) ESRD (end stage renal disease) on dialysis Assessment/Plan: patient gets dialysis MWF, missed this evening dialysis tomorrow renal consult admit as observation Code(s): N18.6 - END STAGE RENAL DISEASE; Z99.2 - DEPENDENCE ON RENAL DIALYSIS (2) Elevated lipase Assessment/Plan: possible 2/2 lack of clearing, patient does not complain of abdominal pain unlikely pancreatitis Code(s): R74.8 - ABNORMAL LEVELS OF OTHER SERUM ENZYMES (3) Hyperkalemia Assessment/Plan: 2/2 lack of dialysis will manage with albuterol and kayexlate Code(s): E87.5 - HYPERKALEMIA (4) Acute metabolic encephalopathy Assessment/Plan: patient requires dislysis Code(s): G93.41 - METABOLIC ENCEPHALOPATHY (5) CVA, old, aphasia Code(s): I69.320 - APHASIA FOLLOWING CEREBRAL INFARCTION (6) Hypertension Assessment/Plan: c/w labetalol Code(s): I10 - ESSENTIAL (PRIMARY) HYPERTENSION
[2018-03-31] MEDS ORDERED: SODIUM POLYSTYRENE SULFONATE 15 GM/60 ML BOTTLE PO ONE (00:02)
[2018-03-31 01:12] LABS: MAGNESIUM 2.8 mg/dL (1.8-2.4); PHOSPHOROUS 4.1 mg/dL (2.5-4.9)
[2018-03-31] MEDS ORDERED: SODIUM POLYSTYRENE SULFONATE 15 GM/60 ML BOTTLE ONE (01:14)
[2018-03-31 01:15] LABS: ALBUMIN 3.2 g/dl (3.4-5.0); ALK PHOS 237 U/L (45-117); ANION GAP 12 (8-16); BILIRUBIN,TOTAL 0.3 mg/dL (0.2-1.0); BLOOD UREA NITROGEN 60 mg/dL (7-18); CALCIUM 8.9 mg/dL (8.5-10.1); CHLORIDE 94 mmol/L (98-107); CO2 28 mmol/L (21-32); GLUCOSE,RANDOM 55 mg/dL (74-106); POTASSIUM 4.5 mmol/L (3.5-5.1); SGOT/AST 32 U/L (15-37); SGPT/ALT 25 U/L (12-78); SODIUM 134 mmol/L (136-145); TOT PROT 7.5 g/dl (6.4-8.2)
[2018-03-31 01:18] LABS: CREATININE 8.7 mg/dL (0.7-1.3)
[2018-03-31] MEDS: HEPARIN NA (PORCINE) 5,000 UNITS/ML 1ML VIAL SQ SCH ×3 (06:24→22:33)
[2018-03-31] MEDS ORDERED: HEPARIN NA (PORCINE) 5,000 UNITS/ML 1ML VIAL ONE (06:25)
[2018-03-31] MEDS: INSULIN SLIDING SCALE (NOVOLOG) 1 VIAL SQ SCH ×4 (06:34→22:33)
[2018-03-31] MEDS ORDERED: CALCIUM ACETATE 667 MG CAPSULE (FP) PO SCH (10:00)
[2018-03-31] MEDS ORDERED: SERTRALINE HCL 50 MG TABLET (FP) PO SCH (10:00)
[2018-03-31] MEDS ORDERED: ASCORBIC ACID 500 MG TABLET (FP) PO SCH (10:00)
[2018-03-31] MEDS ORDERED: VITAMIN B COMP W-C 1 EA TABLET PO SCH (10:00)
[2018-03-31] MEDS ORDERED: ASPIRIN 81 MG CHEWABLE TABLETS PO SCH (10:00)
[2018-03-31] MEDS ORDERED: PHENYTOIN NA EXTENDED 100 MG CAPSULE (FP) PO SCH (10:00)
[2018-03-31] MEDS: LABETALOL HCL 200 MG TABLET (FP) PO SCH ×2 (10:07→22:33)
--- NOTE | 2018-03-31 10:27 | PN ---
Progress Note, Physician History of Present Illness: 52 year old man who was sent to the ED from [facility] for missed dialysis Pt known to have a H/O ESRD, HTN, HLD, S/P CVA with SZD and Anemia Pt has expressive aphasia - Current Medication List Current Medications: Active Medications Ascorbic Acid (Vitamin C -) 500 mg PO DAILY [facility] Last Admin: 03/31/18 10:07 Dose: 500 mg Aspirin (Asa -) 81 mg PO DAILY [facility] Last Admin: 03/31/18 10:07 Dose: 81 mg Atorvastatin Calcium (Lipitor -) 80 mg PO HS [facility] Calcium Acetate (Phoslo -) 667 mg PO DAILY [facility] Heparin Sodium (Porcine) (Heparin -) 5,000 unit SQ TID [facility] Last Admin: 03/31/18 06:24 Dose: 5,000 unit Insulin Aspart (Novolog Vial Sliding Scale -) 1 vial SQ ACHS [facility]; Protocol Last Admin: 03/31/18 06:34 Dose: Not Given Labetalol HCl (Normodyne -) 200 mg PO BID [facility] Last Admin: 03/31/18 10:07 Dose: 200 mg Multivit/Ca Carb/B Cmplx/FA/Prenat (Nephro-Masha -) 1 tablet PO DAILY [facility] Last Admin: 03/31/18 10:07 Dose: 1 tablet Phenytoin Sodium (Dilantin -) 200 mg PO DAILY [facility] Last Admin: 03/31/18 10:07 Dose: 200 mg Sertraline HCl (Zoloft -) 50 mg PO DAILY [facility] Last Admin: 03/31/18 10:07 Dose: 50 mg - Objective Vital Signs: Vital Signs Temperature 98 F 03/30/18 17:09 Pulse Rate 80 03/31/18 05:46 Respiratory Rate 18 03/31/18 08:12 Blood Pressure 140/84 03/31/18 05:46 O2 Sat by Pulse Oximetry (%) 97 03/31/18 08:12 Cardiovascular: Yes: S1, S2 Respiratory: Yes: Regular, CTA Bilaterally Gastrointestinal: Yes: Normal Bowel Sounds, Soft Edema: No Neurological: Yes: Aphasia, Weakness Labs: CBC, BMP 03/30/18 17:40 03/31/18 00:21 INR, PTT INR 0.99 (0.82-1.09) 03/30/18 17:40 Problem List - Problems (1) ESRD (end stage renal disease) on dialysis Assessment/Plan: -Renal for Dialysis -follow Labs Code(s): N18.6 - END STAGE RENAL DISEASE; Z99.2 - DEPENDENCE ON RENAL DIALYSIS (2) Hyperkalemia Assessment/Plan: -Better now -Monitor Code(s): E87.5 - HYPERKALEMIA (3) Altered mental status, unspecified Assessment/Plan: -Question if change-difficult to asses due to aphasia -Neuro Code(s): R41.82 - ALTERED MENTAL STATUS, UNSPECIFIED Qualifiers: Altered mental status type: unspecified Qualified Code(s): R41.82 - Altered mental status, unspecified
--- NOTE | 2018-03-31 12:14 | CON.NEP ---
Consult Consult Specialty:: nephrology - History of Present Illness Chief Complaint: none History of Present Illness: Pt missed dialysis and came to hospital. Has esrd, htn, dementia. 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, Other (APHASIA) Cardio/Vascular: Yes: HTN Renal/: Yes: Renal Failure, Hemodialysis - Past Surgical History Past Surgical History: Yes: Carotid Endarterectomy - Alcohol/Substance Use Hx Alcohol Use: No - Smoking History Smoking history: Unknown if ever smoked Have you smoked in the past 12 months: No Home Medications - Allergies Allergies/Adverse Reactions: Allergies Allergy/AdvReac Type Severity Reaction Status Date / Time No Known Allergies Allergy Verified 03/30/18 17:08 - Home Medications Home Medications: Ambulatory Orders Acetaminophen [Tylenol] 650 mg PO PRN PRN 12/23/17 Ascorbic Acid [Vitamin C -] 500 mg PO DAILY 12/23/17 Aspirin 81 mg PO DAILY 12/23/17 Atorvastatin Ca [Lipitor] 80 mg PO HS 12/23/17 Calcium Acetate [Phoslo -] 667 mg PO TID 12/23/17 Labetalol HCl [Normodyne -] 200 mg PO BID 12/23/17 Phenytoin Na Extended [Dilantin -] 350 mg PO BID 12/23/17 Sertraline HCl [Zoloft -] 50 mg PO DAILY 12/23/17 Vitamin B Comp W-C [Nephro-Masha -] 1 tablet PO DAILY 12/23/17 Family Disease History - Family Disease History Family Disease History: Other: Sister (alive and well) Review of Systems Unable to obtain ROS, reason: does not answer Nephrology Consult - Height Height: 5 ft 1 in - Weight Weight: 120 lb - BMI Body Mass Index (BMI): 22.6 - Lab Results CBC,BMP: CBC, BMP 03/30/18 17:40 03/31/18 00:21 Anion Gap: Anion Gap Anion Gap 12 (8-16) 03/31/18 00:21 - Imaging Chest X-ray: Report Reviewed (new right base infiltrate) - Physical Examination Vital Signs: Vital Signs Temperature 98 F 03/30/18 17:09 Pulse Rate 80 03/31/18 10:49 Respiratory Rate 18 03/31/18 10:49 Blood Pressure 136/74 03/31/18 10:49 O2 Sat by Pulse Oximetry (%) 99 03/31/18 10:49 Constitutional: Yes: No Distress, Calm Eyes: Yes: Conjunctiva Clear, EOM Intact HENT: Yes: Atraumatic, Normocephalic Neck: Yes: Supple, Trachea Midline Cardiovascular: Yes: Regular Rate and Rhythm Respiratory: Yes: Regular, CTA Bilaterally Gastrointestinal: Yes: Normal Bowel Sounds Access for Hemodialysis: AV Graft Musculoskeletal: Yes: WNL Extremities: Yes: WNL Edema: No Wound/Incision: Yes: Well Approximated Neurological: Yes: Alert, Confusion Psychiatric: Yes: Alert Assessment/Plan IMPRESSION esrd MR htn infiltrate?- doubt pneumonia high lipase mild hyponatremia PLAN will order hd for today sono reviewed sodium should improve with hd monitor lipase after eating MV
[2018-03-31] MEDS ORDERED: HEPARIN NA (PORCINE) 5,000 UNITS/ML 1ML VIAL IVPUSH ONE (12:21)
[2018-03-31] MEDS ORDERED: SODIUM CHLORIDE 250 ML IV PRN (12:21)
--- NOTE | 2018-03-31 19:49 | CONSULT ---
Consult - text type - Consultation Consultation Note: NEUROLOGY CONSULTATION is greatly appreciated: This 52 yo Man is a [facility] resident with HTN, DM, ESRD on HD. S/P left CVA with right hemiparesis and seizures. Maintained on: Acetaminophen; Aspirin 81; Atorvastatin; Phoslo; Labetalol (200 mg PO BID); Phenytoin (200 mg qAM and 300 mg HS) and Zoloft. Admitted with vomiting. Cr= 8.7 mg%. BP= 200/90 Now on HD without continued vomiting. RADHA: No bruits. Right neck scar suggesting prior carotid endarectomy. Cor: Reg. HD fistula right arm NEURO: Follows simple commands. Severe non-fluent aphasia Left homonomous hemianopsia Full EOM's without Nystagmus. Mild left facial. Gag OK Left hemiparesis with drift., decreased grasp, Brisk reflexes L>R. Clonus left ankle. Left Babinski. No FTN dystaxia. Withdraws all fours to pinch. IMP: 1. Moderate right cerebral dysfunction with left Hemiparesis, visual field deficit. 2. Aphasia? is Pt left handed? 3. Seizure disorder by history. 4. Nausea and vomiting. 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 Probably due to uremia. R/O dilantin toxicity. Suggest: Check Dilantin level. Carotid duplex dopplers Advance antiplatelet Rx? Follow BP's carefully. Thank you very much, Mickey Alberto MD
[2018-03-31] MEDS ORDERED: INSULIN (NOVOLOG) ASPART 100 UNITS/ML 10ML VIAL ONE (21:38)
[2018-03-31] MEDS ORDERED: ATORVASTATIN CA 80 MG TABLET (FP) PO SCH (22:00)
[2018-04-01] MEDS: HEPARIN NA (PORCINE) 5,000 UNITS/ML 1ML VIAL SQ SCH ×3 (05:05→21:13)
[2018-04-01] MEDS: INSULIN SLIDING SCALE (NOVOLOG) 1 VIAL SQ SCH ×4 (06:46→21:13)
[2018-04-01] MEDS: CALCIUM ACETATE 667 MG CAPSULE (FP) PO SCH (08:37)
[2018-04-01] MEDS ORDERED: PT OWN MED DRAWER 7, Y5N ONE ×2 (09:04→09:15)
[2018-04-01] MEDS: ASPIRIN 81 MG CHEWABLE TABLETS PO SCH (09:11)
[2018-04-01] MEDS: LABETALOL HCL 200 MG TABLET (FP) PO SCH ×2 (09:13→21:14)
[2018-04-01] MEDS: SERTRALINE HCL 50 MG TABLET (FP) PO SCH (09:13)
[2018-04-01] MEDS: ASCORBIC ACID 500 MG TABLET (FP) PO SCH (09:13)
[2018-04-01] MEDS: VITAMIN B COMP W-C 1 EA TABLET PO SCH (09:16)
--- NOTE | 2018-04-01 09:38 | EKG ---
Test Reason : Blood Pressure : / mmHG Vent. Rate : 063 BPM Atrial Rate : 063 BPM P-R Int : 162 ms QRS Dur : 100 ms QT Int : 446 ms P-R-T Axes : 067 038 033 degrees QTc Int : 456 ms NORMAL SINUS RHYTHM NORMAL ECG WHEN COMPARED WITH ECG OF 23-DEC-2017 23:04, VENT. RATE HAS DECREASED BY 31 BPM Confirmed by LANI MOLINA MD ([id number]) on 04/01/2018 9:38:04 AM Referred By: Confirmed By:LANI MOLINA MD
[2018-04-01] MEDS ORDERED: PHENYTOIN NA EXTENDED 100 MG CAPSULE (FP) PO SCH (10:00)
[2018-04-01] MEDS ORDERED: CALCIUM ACETATE 667 MG CAPSULE (FP) PO SCH (10:00)
--- NOTE | 2018-04-01 10:24 | PN ---
Progress Note (short form) - Note Progress Note: RENAL Pt is asleep but is arousable comfortable Last Vital Signs Temp Pulse Resp BP Pulse Ox 96.5 F L 66 18 126/69 99 04/01/18 06:00 04/01/18 06:00 04/01/18 06:00 04/01/18 06:00 03/31/18 21:00 lungs clear cvs s1s2 rr abd soft ext no edema CBC, BMP 03/30/18 17:40 03/31/18 00:21 Current Medications Generic Name Dose Route Start Last Admin Trade Name Freq PRN Reason Stop Dose Admin Ascorbic Acid 500 mg 04/01/18 10:00 04/01/18 09:13 Vitamin C - PO 500 mg DAILY TYREE Administration Aspirin 81 mg 04/01/18 10:00 04/01/18 09:11 Asa - PO 81 mg DAILY TYREE Administration Atorvastatin Calcium 80 mg 04/01/18 22:00 Lipitor - PO HS TYREE Calcium Acetate 667 mg 04/01/18 08:00 04/01/18 08:37 Phoslo - PO 667 mg DAILY@0800 TYREE Administration Heparin Sodium (Porcine) 5,000 unit 04/01/18 06:00 04/01/18 05:05 Heparin - SQ 5,000 unit TID TYREE Administration Sodium Chloride 250 mls @ 3,000 mls/hr 03/31/18 12:21 Normal Saline - IV 04/01/18 12:21 PRN PRN Hypotension during Dialysis Insulin Aspart 1 vial 04/01/18 07:00 04/01/18 06:46 Novolog Vial Sliding Scale - SQ Not Given ACHS [facility] Protocol Labetalol HCl 200 mg 04/01/18 10:00 04/01/18 09:13 Normodyne - PO 200 mg BID TYREE Administration Multivit/Ca Carb/B Cmplx/FA/Prenat 1 tablet 04/01/18 10:00 04/01/18 09:16 Nephro-Masha - PO 1 tablet DAILY [facility] Administration Phenytoin Sodium 200 mg 04/01/18 10:00 04/01/18 09:12 Dilantin - PO 200 mg DAILY [facility] Administration Sertraline HCl 50 mg 04/01/18 10:00 04/01/18 09:13 Zoloft - PO 50 mg DAILY [facility] Administration IMPRESSION esrd htn hyperlipidemia seizure disorder phenytoin level is very high PLAN continue current management hold phenytoin, consider free phenytoin level given renal disease neuro follow up MV
--- NOTE | 2018-04-01 14:34 | PN ---
Progress Note, Physician History of Present Illness: 52 year old man who was sent to the ED from [facility] for missed dialysis Pt known to have a H/O ESRD, HTN, HLD, S/P CVA with SZD and Anemia Pt has expressive aphasia - Current Medication List Current Medications: Active Medications Ascorbic Acid (Vitamin C -) 500 mg PO DAILY [facility] Last Admin: 04/01/18 09:13 Dose: 500 mg Aspirin (Asa -) 81 mg PO DAILY [facility] Last Admin: 04/01/18 09:11 Dose: 81 mg Atorvastatin Calcium (Lipitor -) 80 mg PO [facility] Calcium Acetate (Phoslo -) 667 mg PO DAILY@0800 [facility] Last Admin: 04/01/18 08:37 Dose: 667 mg Heparin Sodium (Porcine) (Heparin -) 5,000 unit SQ TID [facility] Last Admin: 04/01/18 13:52 Dose: 5,000 unit Insulin Aspart (Novolog Vial Sliding Scale -) 1 vial SQ [facility]; Protocol Last Admin: 04/01/18 11:29 Dose: Not Given Labetalol HCl (Normodyne -) 200 mg PO BID [facility] Last Admin: 04/01/18 09:13 Dose: 200 mg Multivit/Ca Carb/B Cmplx/FA/Prenat (Nephro-Masha -) 1 tablet PO DAILY [facility] Last Admin: 04/01/18 09:16 Dose: 1 tablet Sertraline HCl (Zoloft -) 50 mg PO DAILY [facility] Last Admin: 04/01/18 09:13 Dose: 50 mg - Objective Vital Signs: Vital Signs Temperature 98.1 F 04/01/18 08:05 Pulse Rate 82 04/01/18 08:05 Respiratory Rate 20 04/01/18 08:05 Blood Pressure 144/94 04/01/18 08:05 O2 Sat by Pulse Oximetry (%) 99 03/31/18 21:00 Cardiovascular: Yes: S1, S2 Respiratory: Yes: Regular, CTA Bilaterally Gastrointestinal: Yes: Normal Bowel Sounds, Soft Labs: CBC, BMP 03/30/18 17:40 03/31/18 00:21 INR, PTT INR 0.99 (0.82-1.09) 03/30/18 17:40 Problem List - Problems (1) ESRD (end stage renal disease) on dialysis Assessment/Plan: -Renal for Dialysis -follow Labs Code(s): N18.6 - END STAGE RENAL DISEASE; Z99.2 - DEPENDENCE ON RENAL DIALYSIS (2) Hyperkalemia Assessment/Plan: -Better now -Monitor Code(s): E87.5 - HYPERKALEMIA (3) Altered mental status, unspecified Assessment/Plan: -Question if change-difficult to asses due to aphasia -Neuro Code(s): R41.82 - ALTERED MENTAL STATUS, UNSPECIFIED Qualifiers: Altered mental status type: unspecified Qualified Code(s): R41.82 - Altered mental status, unspecified (4) Seizure Assessment/Plan: -Hold dilantin -Follow level Code(s): R56.9 - UNSPECIFIED CONVULSIONS (5) CVA, old, aphasia Code(s): I69.320 - APHASIA FOLLOWING CEREBRAL INFARCTION
--- NOTE | 2018-04-01 15:56 | CON.GI ---
Consult Consult Specialty:: GI Reason for Consultation:: elevated lipase - History of Present Illness History of Present Illness: Chart reviewed, events on consults noted. A 52M admitted via ED for missed dialysis, hyperkalemia, HTN, Chronically elevated ALP and lipase of 803. The pt was vomiting prior to arriving to the ED, per records. The pt's sister, who was at the bedside, reports 2 episodes of vomiting in the last 2 months. There is no melena, hematochezia, hematemesis, jaundice, per pt's sister. The is no history of pancreatitis, gallstones, excessive ETOH in the past. US of the liver on this admission revealed no biliary abnormalities. 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) Cardio/Vascular: Yes: HTN Renal/: Yes: Renal Failure, Hemodialysis - Past Surgical History Past Surgical History: Yes: Carotid Endarterectomy - Alcohol/Substance Use Hx Alcohol Use: No - Smoking History Smoking history: Unknown if ever smoked Have you smoked in the past 12 months: No Home Medications - Allergies Allergies/Adverse Reactions: Allergies Allergy/AdvReac Type Severity Reaction Status Date / Time No Known Allergies Allergy Verified 03/30/18 17:08 - Home Medications Home Medications: Ambulatory Orders Acetaminophen [Tylenol] 650 mg PO PRN PRN 12/23/17 Ascorbic Acid [Vitamin C -] 500 mg PO DAILY 12/23/17 Aspirin 81 mg PO DAILY 12/23/17 Atorvastatin Ca [Lipitor] 80 mg PO HS 12/23/17 Calcium Acetate [Phoslo -] 667 mg PO TID 12/23/17 Labetalol HCl [Normodyne -] 200 mg PO BID 12/23/17 Phenytoin Na Extended [Dilantin -] 350 mg PO BID 12/23/17 Sertraline HCl [Zoloft -] 50 mg PO DAILY 12/23/17 Vitamin B Comp W-C [Nephro-Masha -] 1 tablet PO DAILY 12/23/17 Family Disease History - Family Disease History Family Disease History: Other: Sister (alive and well) Review of Systems Findings/Remarks: as per PHI, H&P, ED Physical Exam-GI Vital Signs: Vital Signs Temperature 97.4 F L 04/01/18 15:43 Pulse Rate 76 04/01/18 15:43 Respiratory Rate 20 04/01/18 15:43 Blood Pressure 109/58 04/01/18 15:43 O2 Sat by Pulse Oximetry (%) 99 03/31/18 21:00 Constitutional: Yes: No Distress, Calm Eyes: Yes: Conjunctiva Clear. No: Sclera Icterus HENT: Yes: Atraumatic Neck: Yes: Supple Cardiovascular: Yes: Regular Rate and Rhythm Respiratory: Yes: Regular Gastrointestinal Inspection: No: Ascites, Distention ...Auscultate: Yes: Normoactive Bowel Sounds ...Palpate: Yes: Soft. No: Firm/Rigid, Guarding, Mass, Pulsatile Mass, Tenderness, Tenderness, Epigastium, Tenderness, Rebound Labs: CBC, BMP 03/30/18 17:40 03/31/18 00:21 INR, PTT INR 0.99 (0.82-1.09) 03/30/18 17:40 Laboratory Last Values WBC 4.5 K/mm3 (4.0-10.0) 03/30/18 17:40 RBC 3.79 M/mm3 (4.00-5.60) L 03/30/18 17:40 Hgb 11.6 GM/dL (11.7-16.9) L 03/30/18 17:40 Hct 35.1 % (35.4-49) L D 03/30/18 17:40 MCV 92.6 fl (80-96) 03/30/18 17:40 MCH 30.7 pg (25.7-33.7) 03/30/18 17:40 MCHC 33.2 g/dl (32.0-35.9) 03/30/18 17:40 RDW 13.8 % (11.9-15.9) 03/30/18 17:40 Plt Count 236 K/MM3 (134-434) D 03/30/18 17:40 MPV 8.0 fl (7.5-11.1) 03/30/18 17:40 Absolute Neuts (auto) 2.9 # 03/30/18 17:40 Neutrophils % 64.7 % (42.8-82.8) D 03/30/18 17:40 Lymphocytes % 16.9 % (8-40) D 03/30/18 17:40 Monocytes % 9.9 % (3.8-10.2) 03/30/18 17:40 Eosinophils % 7.2 % (0-4.5) H D 03/30/18 17:40 Basophils % 1.3 % (0-2.0) 03/30/18 17:40 Nucleated RBC % 0 % (0-0) 03/30/18 17:40 PT with INR 11.20 SEC (9.7-13.0) 03/30/18 17:40 INR 0.99 (0.82-1.09) 03/30/18 17:40 Sodium 134 mmol/L (136-145) L 03/31/18 00:21 Potassium 4.5 mmol/L (3.5-5.1) D 03/31/18 00:21 Chloride 94 mmol/L (98-107) L 03/31/18 00:21 Carbon Dioxide 28 mmol/L (21-32) 03/31/18 00:21 Anion Gap 12 (8-16) 03/31/18 00:21 BUN 60 mg/dL (7-18) H 03/31/18 00:21 Creatinine 8.7 mg/dL (0.7-1.3) H* 03/31/18 00:21 Creat Clearance w eGFR 6.46 (>60) 03/31/18 00:21 POC Glucometer 118 UNITS (80-120) 04/01/18 11:28 Random Glucose 55 mg/dL (74-106) L D 03/31/18 00:21 Lactic Acid 0.7 mmol/L (0.0-2.0) 03/30/18 17:40 Calcium 8.9 mg/dL (8.5-10.1) 03/31/18 00:21 Phosphorus 4.1 mg/dL (2.5-4.9) D 03/31/18 00:21 Magnesium 2.8 mg/dL (1.8-2.4) H D 03/31/18 00:21 Total Bilirubin 0.3 mg/dL (0.2-1.0) 03/31/18 00:21 AST 32 U/L (15-37) 03/31/18 00:21 ALT 25 U/L (12-78) 03/31/18 00:21 Alkaline Phosphatase 237 U/L (45-117) H 03/31/18 00:21 Creatine Kinase 127 IU/L (39-308) 03/30/18 17:40 Troponin I < 0.02 ng/ml (0.00-0.05) D 03/30/18 17:40 Total Protein 7.5 g/dl (6.4-8.2) 03/31/18 00:21 Albumin 3.2 g/dl (3.4-5.0) L 03/31/18 00:21 Lipase 845 U/L (73-393) H 04/01/18 08:10 Phenytoin 27.5 ug/ml (10.0-20.0) H* D 04/01/18 07:30 Imaging - Results Ultrasound: Report Reviewed Problem List - Problems (1) Elevated lipase Code(s): R74.8 - ABNORMAL LEVELS OF OTHER SERUM ENZYMES Assessment/Plan A 52M with ESRD on HD TID. The patient was noted to have mildly elevated lipase , chronically, at least since 2017, elevated ALP, which is likely ESRD-related, normal US of the liver and normal transaminases. Suspect the abnormal lipase and ALK to be due to ESRD. A microlithiasis, gs, or idiopathic pancreatitis are less likely. Continue the current diet and care as per nephrology/primary team. Repeat lipase in am. Will monitor.
[2018-04-01] MEDS: ATORVASTATIN CA 80 MG TABLET (FP) PO SCH (21:14)
[2018-04-02] MEDS: HEPARIN NA (PORCINE) 5,000 UNITS/ML 1ML VIAL SQ SCH ×3 (06:23→21:23)
[2018-04-02] MEDS: INSULIN SLIDING SCALE (NOVOLOG) 1 VIAL SQ SCH ×4 (06:26→21:23)
[2018-04-02 08:20] LABS: BASO % 1.3 % (0-2.0); EOS % 9.5 % (0-4.5); HEMATOCRIT 32.2 % (35.4-49); HEMOGLOBIN 10.6 GM/dL (11.7-16.9); MCH 30.5 pg (25.7-33.7); MCHC 32.9 g/dl (32.0-35.9); MEAN CELL VOLUME 92.9 fl (80-96); MEAN PLT VOLUME 8.2 fl (7.5-11.1); NEUT % 38.2 % (42.8-82.8); PLATELET COUNT 205 K/MM3 (134-434); RBC 3.47 M/mm3 (4.00-5.60); RDW 14.1 % (11.9-15.9); WHITE BLOOD COUNT 4.6 K/mm3 (4.0-10.0)
[2018-04-02] MEDS: CALCIUM ACETATE 667 MG CAPSULE (FP) PO SCH (08:38)
[2018-04-02 08:55] LABS: ALBUMIN 2.8 g/dl (3.4-5.0); ANION GAP 11 (8-16); BLOOD UREA NITROGEN 44 mg/dL (7-18); CALCIUM 8.1 mg/dL (8.5-10.1); CHLORIDE 97 mmol/L (98-107); CO2 30 mmol/L (21-32); GLUCOSE,RANDOM 87 mg/dL (74-106); SGOT/AST 32 U/L (15-37); SGPT/ALT 24 U/L (12-78); SODIUM 138 mmol/L (136-145)
[2018-04-02 08:57] LABS: ALK PHOS 220 U/L (45-117); BILIRUBIN,TOTAL 0.3 mg/dL (0.2-1.0); TOT PROT 6.9 g/dl (6.4-8.2)
[2018-04-02 09:05] LABS: CREATININE 8.1 mg/dL (0.7-1.3)
--- NOTE | 2018-04-02 11:39 | PN ---
Progress Note, Physician Chief Complaint: patient came in because he missed HD session on monday got HD on monday has expressive aphasia - Current Medication List Current Medications: Active Medications Ascorbic Acid (Vitamin C -) 500 mg PO DAILY [facility] Last Admin: 04/01/18 09:13 Dose: 500 mg Aspirin (Asa -) 81 mg PO DAILY [facility] Last Admin: 04/01/18 09:11 Dose: 81 mg Atorvastatin Calcium (Lipitor -) 80 mg PO HS [facility] Last Admin: 04/01/18 21:14 Dose: 80 mg Calcium Acetate (Phoslo -) 667 mg PO DAILY@0800 [facility] Last Admin: 04/02/18 08:38 Dose: 667 mg Heparin Sodium (Porcine) (Heparin -) 5,000 unit SQ TID [facility] Last Admin: 04/02/18 06:23 Dose: 5,000 unit Insulin Aspart (Novolog Vial Sliding Scale -) 1 vial SQ ACHS [facility]; Protocol Last Admin: 04/02/18 06:26 Dose: Not Given Labetalol HCl (Normodyne -) 200 mg PO BID [facility] Last Admin: 04/01/18 21:14 Dose: 200 mg Multivit/Ca Carb/B Cmplx/FA/Prenat (Nephro-Masha -) 1 tablet PO DAILY [facility] Last Admin: 04/01/18 09:16 Dose: 1 tablet Sertraline HCl (Zoloft -) 50 mg PO DAILY [facility] Last Admin: 04/01/18 09:13 Dose: 50 mg - Objective Vital Signs: Vital Signs Temperature 98.2 F 04/02/18 09:50 Pulse Rate 79 04/02/18 09:50 Respiratory Rate 17 04/02/18 09:50 Blood Pressure 160/80 04/02/18 09:50 O2 Sat by Pulse Oximetry (%) 99 04/01/18 21:00 Constitutional: Yes: Calm Cardiovascular: Yes: Regular Rate and Rhythm, S1, S2 Respiratory: Yes: CTA Bilaterally Gastrointestinal: Yes: Normal Bowel Sounds, Soft Edema: No Labs: CBC, BMP 04/02/18 07:00 04/02/18 07:00 INR, PTT INR 0.99 (0.82-1.09) 03/30/18 17:40 Problem List - Problems (1) ESRD (end stage renal disease) on dialysis Assessment/Plan: HD per renal s/p hyperkalemia Code(s): N18.6 - END STAGE RENAL DISEASE; Z99.2 - DEPENDENCE ON RENAL DIALYSIS (2) Elevated lipase Assessment/Plan: appreicate GI note chronically elevated maybe secondary to ESRD Code(s): R74.8 - ABNORMAL LEVELS OF OTHER SERUM ENZYMES (3) Seizure Assessment/Plan: apreicate neurology note hold dilatin-levels elevated Code(s): R56.9 - UNSPECIFIED CONVULSIONS (4) Hypertension Assessment/Plan: on labetolol Code(s): I10 - ESSENTIAL (PRIMARY) HYPERTENSION
[2018-04-02] MEDS ORDERED: PT OWN MED DRAWER 7, Y5N ONE (13:58)
[2018-04-02] MEDS: ASPIRIN 81 MG CHEWABLE TABLETS PO SCH (14:22)
[2018-04-02] MEDS: LABETALOL HCL 200 MG TABLET (FP) PO SCH ×2 (14:22→21:23)
[2018-04-02] MEDS: VITAMIN B COMP W-C 1 EA TABLET PO SCH (14:22)
[2018-04-02] MEDS: SERTRALINE HCL 50 MG TABLET (FP) PO SCH (14:23)
[2018-04-02] MEDS: ASCORBIC ACID 500 MG TABLET (FP) PO SCH (14:23)
--- NOTE | 2018-04-02 15:00 | PN ---
Progress Note, Physician History of Present Illness: Pt seen and examined at bedside. He is awake and appears comfortable. - Current Medication List Current Medications: Active Medications Ascorbic Acid (Vitamin C -) 500 mg PO DAILY [facility] Last Admin: 04/02/18 14:23 Dose: Not Given Aspirin (Asa -) 81 mg PO DAILY [facility] Last Admin: 04/02/18 14:22 Dose: Not Given Atorvastatin Calcium (Lipitor -) 80 mg PO HS [facility] Last Admin: 04/01/18 21:14 Dose: 80 mg Calcium Acetate (Phoslo -) 667 mg PO DAILY@0800 [facility] Last Admin: 04/02/18 08:38 Dose: 667 mg Heparin Sodium (Porcine) (Heparin -) 5,000 unit SQ TID [facility] Last Admin: 04/02/18 14:25 Dose: Not Given Insulin Aspart (Novolog Vial Sliding Scale -) 1 vial SQ [facility]; Protocol Last Admin: 04/02/18 12:02 Dose: Not Given Labetalol HCl (Normodyne -) 200 mg PO BID [facility] Last Admin: 04/02/18 14:22 Dose: Not Given Multivit/Ca Carb/B Cmplx/FA/Prenat (Nephro-Masha -) 1 tablet PO DAILY [facility] Last Admin: 04/02/18 14:22 Dose: Not Given Sertraline HCl (Zoloft -) 50 mg PO DAILY [facility] Last Admin: 04/02/18 14:23 Dose: Not Given - Objective Vital Signs: Vital Signs Temperature 98.2 F 04/02/18 13:37 Pulse Rate 75 04/02/18 13:37 Respiratory Rate 17 04/02/18 13:37 Blood Pressure 120/60 04/02/18 13:37 O2 Sat by Pulse Oximetry (%) 100 04/02/18 09:50 Constitutional: Yes: Calm HENT: Yes: Atraumatic Cardiovascular: Yes: S1, S2 Respiratory: Yes: CTA Bilaterally Gastrointestinal: Yes: Soft Genitourinary: Yes: Incontinence Musculoskeletal: Yes: Muscle Weakness Edema: No Integumentary: Yes: WNL Neurological: Yes: Pre-Existing Deficit Labs: CBC, BMP 04/02/18 07:00 04/02/18 07:00 INR, PTT INR 0.99 (0.82-1.09) 03/30/18 17:40 Problem List - Problems (1) ESRD (end stage renal disease) on dialysis Code(s): N18.6 - END STAGE RENAL DISEASE; Z99.2 - DEPENDENCE ON RENAL DIALYSIS Assessment/Plan Current Medications Generic Name Dose Route Start Last Admin Trade Name Cr PRN Reason Stop Dose Admin Ascorbic Acid 500 mg 04/01/18 10:00 04/02/18 14:23 Vitamin C - PO Not Given DAILY [facility] Aspirin 81 mg 04/01/18 10:00 04/02/18 14:22 Asa - PO Not Given DAILY [facility] Atorvastatin Calcium 80 mg 04/01/18 22:00 04/01/18 21:14 Lipitor - PO 80 mg HS [facility] Administration Calcium Acetate 667 mg 04/01/18 08:00 04/02/18 08:38 Phoslo - PO 667 mg DAILY@0800 [facility] Administration Heparin Sodium (Porcine) 5,000 unit 04/01/18 06:00 04/02/18 14:25 Heparin - SQ Not Given TID [facility] Insulin Aspart 1 vial 04/01/18 07:00 04/02/18 12:02 Novolog Vial Sliding Scale - SQ Not Given ACHS [facility] Protocol Labetalol HCl 200 mg 04/01/18 10:00 04/02/18 14:22 Normodyne - PO Not Given BID [facility] Multivit/Ca Carb/B Cmplx/FA/Prenat 1 tablet 04/01/18 10:00 04/02/18 14:22 Nephro-Masha - PO Not Given DAILY [facility] Sertraline HCl 50 mg 04/01/18 10:00 04/02/18 14:23 Zoloft - PO Not Given DAILY [facility] Impression 1. ESRD 2. chol 3. hx CVA 4. HTN 5. altered mental status 6. failure to thrive 7. hyperkalemia 8. PNA 9. seizure Plan - will arrange for HD today as pt is on [facility] schedule - neuro follow up - bp stable - will follow Dr Naranjo
[2018-04-02] MEDS ORDERED: SODIUM CHLORIDE 250 ML IV PRN (15:05)
[2018-04-02] MEDS: ATORVASTATIN CA 80 MG TABLET (FP) PO SCH (21:22)
[2018-04-03] MEDS: HEPARIN NA (PORCINE) 5,000 UNITS/ML 1ML VIAL SQ SCH ×3 (05:50→22:06)
[2018-04-03] MEDS: INSULIN SLIDING SCALE (NOVOLOG) 1 VIAL SQ SCH ×4 (06:55→22:06)
[2018-04-03] MEDS: CALCIUM ACETATE 667 MG CAPSULE (FP) PO SCH (08:18)
[2018-04-03] MEDS: ASCORBIC ACID 500 MG TABLET (FP) PO SCH (09:18)
[2018-04-03] MEDS: ASPIRIN 81 MG CHEWABLE TABLETS PO SCH (09:19)
[2018-04-03] MEDS: SERTRALINE HCL 50 MG TABLET (FP) PO SCH (09:19)
[2018-04-03] MEDS: LABETALOL HCL 200 MG TABLET (FP) PO SCH ×2 (09:20→22:05)
[2018-04-03] MEDS: VITAMIN B COMP W-C 1 EA TABLET PO SCH (11:14)
--- NOTE | 2018-04-03 11:30 | PN ---
Progress Note, Physician Chief Complaint: ESRD History of Present Illness: NAD labs to be done today Had HD yesterday Also seen by neurology for dilantin toxicity - Current Medication List Current Medications: Active Medications Ascorbic Acid (Vitamin C -) 500 mg PO DAILY [facility] Last Admin: 04/03/18 09:18 Dose: 500 mg Aspirin (Asa -) 81 mg PO DAILY [facility] Last Admin: 04/03/18 09:19 Dose: 81 mg Atorvastatin Calcium (Lipitor -) 80 mg PO HS [facility] Last Admin: 04/02/18 21:22 Dose: 80 mg Calcium Acetate (Phoslo -) 667 mg PO DAILY@0800 [facility] Last Admin: 04/03/18 08:18 Dose: 667 mg Heparin Sodium (Porcine) (Heparin -) 5,000 unit SQ TID [facility] Last Admin: 04/03/18 05:50 Dose: 5,000 unit Sodium Chloride (Normal Saline -) 250 mls @ 3,000 mls/hr IV PRN PRN PRN Reason: Hypotension during Dialysis Stop: 04/03/18 15:06 Insulin Aspart (Novolog Vial Sliding Scale -) 1 vial SQ [facility]; Protocol Last Admin: 04/03/18 06:55 Dose: Not Given Labetalol HCl (Normodyne -) 200 mg PO BID [facility] Last Admin: 04/03/18 09:20 Dose: 200 mg Multivit/Ca Carb/B Cmplx/FA/Prenat (Nephro-Masha -) 1 tablet PO DAILY [facility] Last Admin: 04/03/18 11:14 Dose: 1 tablet Sertraline HCl (Zoloft -) 50 mg PO DAILY [facility] Last Admin: 04/03/18 09:19 Dose: 50 mg - Objective Vital Signs: Vital Signs Temperature 98.1 F 04/03/18 06:00 Pulse Rate 75 04/03/18 06:00 Respiratory Rate 18 04/03/18 06:00 Blood Pressure 137/73 04/03/18 06:00 O2 Sat by Pulse Oximetry (%) 100 04/02/18 21:00 Constitutional: Yes: Well Nourished, No Distress, Calm Cardiovascular: Yes: Regular Rate and Rhythm Respiratory: Yes: Regular Gastrointestinal: Yes: Normal Bowel Sounds, Soft Musculoskeletal: Yes: Muscle Weakness Neurological: Yes: Alert, Pre-Existing Deficit Psychiatric: Yes: Alert Labs: CBC, BMP 04/02/18 07:00 04/02/18 07:00 INR, PTT INR 0.99 (0.82-1.09) 03/30/18 17:40 Problem List - Problems (1) ESRD (end stage renal disease) on dialysis Assessment/Plan: -Seen by Nephrology -HD MWF -OK by nephrology to go back to [facility] Code(s): N18.6 - END STAGE RENAL DISEASE; Z99.2 - DEPENDENCE ON RENAL DIALYSIS (2) Elevated lipase Assessment/Plan: -Seen by GI, elevated lipase multifactorial in case of ESRD Code(s): R74.8 - ABNORMAL LEVELS OF OTHER SERUM ENZYMES (3) Seizure Assessment/Plan: -Neurology consult appreciated -Dilantin held due to toxicity -called neurology to clarify when and how much dilantin to initiate after discharge Code(s): R56.9 - UNSPECIFIED CONVULSIONS Assessment/Plan see problem list
[2018-04-03 12:24] LABS: BASO % 0.9 % (0-2.0); EOS % 10.4 % (0-4.5); HEMATOCRIT 35.5 % (35.4-49); HEMOGLOBIN 11.5 GM/dL (11.7-16.9); LYMPH % 25.7 % (8-40); MCH 30.3 pg (25.7-33.7); MCHC 32.3 g/dl (32.0-35.9); MEAN CELL VOLUME 93.7 fl (80-96); MEAN PLT VOLUME 7.9 fl (7.5-11.1); MONO % 16.1 % (3.8-10.2); NEUT % 46.9 % (42.8-82.8); PLATELET COUNT 198 K/MM3 (134-434); RBC 3.79 M/mm3 (4.00-5.60); RDW 13.7 % (11.9-15.9); WHITE BLOOD COUNT 4.8 K/mm3 (4.0-10.0)
[2018-04-03] MEDS ORDERED: PT OWN MED DRAWER 7, Y5N ONE (12:32)
[2018-04-03 12:56] LABS: ALK PHOS 239 U/L (45-117); AMYLASE 238 U/L (25-115); ANION GAP 9 (8-16); BILIRUBIN,TOTAL 0.3 mg/dL (0.2-1.0); BLOOD UREA NITROGEN 27 mg/dL (7-18); CALCIUM 8.4 mg/dL (8.5-10.1); CHLORIDE 99 mmol/L (98-107); CO2 33 mmol/L (21-32); CREATININE 6.2 mg/dL (0.7-1.3); GLUCOSE,RANDOM 83 mg/dL (74-106); SGOT/AST 37 U/L (15-37); SGPT/ALT 30 U/L (12-78); SODIUM 141 mmol/L (136-145); TOT PROT 7.5 g/dl (6.4-8.2)
[2018-04-03 12:57] LABS: LIPASE 891 U/L (73-393)
--- NOTE | 2018-04-03 14:35 | DS ---
Physical Examination Vital Signs: Vital Signs Temperature 98.5 F 04/03/18 10:00 Pulse Rate 74 04/03/18 10:00 Respiratory Rate 18 04/03/18 10:00 Blood Pressure 142/75 04/03/18 10:00 O2 Sat by Pulse Oximetry (%) 100 04/02/18 21:00 Constitutional: Yes: Well Nourished, No Distress, Calm Cardiovascular: Yes: Regular Rate and Rhythm Respiratory: Yes: Regular Gastrointestinal: Yes: Normal Bowel Sounds, Soft Musculoskeletal: Yes: Muscle Weakness Extremities: Yes: WNL Neurological: Yes: Alert, Pre-Existing Deficit Psychiatric: Yes: Alert Labs: CBC, BMP 04/03/18 11:50 04/03/18 11:50 Discharge Summary Reason For Visit: HYPERKALEMIA END STAGE RENAL FAILURE Current Active Problems ESRD (end stage renal disease) on dialysis (Acute) Elevated lipase (Acute) Hyperkalemia (Acute) Seizure (Acute) Hospital Course: 52 y/o male patient presented to the hospital after the patient has missed dialysis session Dilantin was held due to toxicity Condition: Guarded - Instructions Diet, Activity, Other Instructions: CBC, CMP,amylase and lipase, Dilantin level in 1 week Follow up with Neurology in 1 week. Referrals: Edilberto Carmichael MD [Primary Care Provider] - Mickey Alberto MD [Staff Physician] - Disposition: SNF FACILITY - Home Medications Comprehensive Discharge Medication List: Ambulatory Orders Acetaminophen [Tylenol] 650 mg PO PRN PRN 12/23/17 Ascorbic Acid [Vitamin C -] 500 mg PO DAILY 12/23/17 Aspirin 81 mg PO DAILY 12/23/17 Atorvastatin Ca [Lipitor] 80 mg PO HS 12/23/17 Calcium Acetate [Phoslo -] 667 mg PO TID 12/23/17 Labetalol HCl [Normodyne -] 200 mg PO BID 12/23/17 Sertraline HCl [Zoloft -] 50 mg PO DAILY 12/23/17 Vitamin B Comp W-C [Nephro-Masha -] 1 tablet PO DAILY 12/23/17
--- NOTE | 2018-04-03 15:16 | PN ---
Progress Note, Physician History of Present Illness: Pt seen and examined at bedside. He is awake and appears comfortable. - Current Medication List Current Medications: Active Medications Ascorbic Acid (Vitamin C -) 500 mg PO DAILY [facility] Last Admin: 04/03/18 09:18 Dose: 500 mg Aspirin (Asa -) 81 mg PO DAILY [facility] Last Admin: 04/03/18 09:19 Dose: 81 mg Atorvastatin Calcium (Lipitor -) 80 mg PO HS [facility] Last Admin: 04/02/18 21:22 Dose: 80 mg Calcium Acetate (Phoslo -) 667 mg PO DAILY@0800 [facility] Last Admin: 04/03/18 08:18 Dose: 667 mg Heparin Sodium (Porcine) (Heparin -) 5,000 unit SQ TID [facility] Last Admin: 04/03/18 05:50 Dose: 5,000 unit Sodium Chloride (Normal Saline -) 250 mls @ 3,000 mls/hr IV PRN PRN PRN Reason: Hypotension during Dialysis Stop: 04/03/18 15:06 Insulin Aspart (Novolog Vial Sliding Scale -) 1 vial SQ [facility]; Protocol Last Admin: 04/03/18 11:43 Dose: Not Given Labetalol HCl (Normodyne -) 200 mg PO BID [facility] Last Admin: 04/03/18 09:20 Dose: 200 mg Multivit/Ca Carb/B Cmplx/FA/Prenat (Nephro-Masha -) 1 tablet PO DAILY [facility] Last Admin: 04/03/18 11:14 Dose: 1 tablet Phenytoin Sodium (Dilantin -) 200 mg PO BID [facility] Sertraline HCl (Zoloft -) 50 mg PO DAILY [facility] Last Admin: 04/03/18 09:19 Dose: 50 mg - Objective Vital Signs: Vital Signs Temperature 98.2 F 04/03/18 14:43 Pulse Rate 83 04/03/18 14:43 Respiratory Rate 16 04/03/18 14:43 Blood Pressure 163/70 04/03/18 14:43 O2 Sat by Pulse Oximetry (%) 100 04/02/18 21:00 Constitutional: Yes: Calm Eyes: Yes: Conjunctiva Clear HENT: Yes: Atraumatic Neck: Yes: Supple Cardiovascular: Yes: S1, S2 Respiratory: Yes: CTA Bilaterally Gastrointestinal: Yes: Soft Genitourinary: Yes: Incontinence Extremities: Yes: WNL Edema: No Integumentary: Yes: WNL Neurological: Yes: Pre-Existing Deficit Labs: CBC, BMP 04/03/18 11:50 04/03/18 11:50 INR, PTT INR 0.99 (0.82-1.09) 03/30/18 17:40 Problem List - Problems (1) ESRD (end stage renal disease) on dialysis Code(s): N18.6 - END STAGE RENAL DISEASE; Z99.2 - DEPENDENCE ON RENAL DIALYSIS Assessment/Plan Current Medications Generic Name Dose Route Start Last Admin Trade Name Freq PRN Reason Stop Dose Admin Ascorbic Acid 500 mg 04/01/18 10:00 04/03/18 09:18 Vitamin C - PO 500 mg DAILY [facility] Administration Aspirin 81 mg 04/01/18 10:00 04/03/18 09:19 Asa - PO 81 mg DAILY [facility] Administration Atorvastatin Calcium 80 mg 04/01/18 22:00 04/02/18 21:22 Lipitor - PO 80 mg HS [facility] Administration Calcium Acetate 667 mg 04/01/18 08:00 04/03/18 08:18 Phoslo - PO 667 mg DAILY@0800 [facility] Administration Heparin Sodium (Porcine) 5,000 unit 04/01/18 06:00 04/03/18 15:13 Heparin - SQ 5,000 unit TID [facility] Administration Sodium Chloride 250 mls @ 3,000 mls/hr 04/02/18 15:05 Normal Saline - IV 04/03/18 15:06 PRN PRN Hypotension during Dialysis Insulin Aspart 1 vial 04/01/18 07:00 04/03/18 11:43 Novolog Vial Sliding Scale - SQ Not Given ACHS [facility] Protocol Labetalol HCl 200 mg 04/01/18 10:00 04/03/18 09:20 Normodyne - PO 200 mg BID [facility] Administration Multivit/Ca Carb/B Cmplx/FA/Prenat 1 tablet 04/01/18 10:00 04/03/18 11:14 Nephro-Masha - PO 1 tablet DAILY [facility] Administration Phenytoin Sodium 200 mg 04/03/18 22:00 Dilantin - PO BID [facility] Sertraline HCl 50 mg 04/01/18 10:00 04/03/18 09:19 Zoloft - PO 50 mg DAILY [facility] Administration Impression 1. ESRD 2. chol 3. hx CVA 4. HTN 5. altered mental status 6. failure to thrive 7. hyperkalemia 8. PNA 9. seizure Plan - pt dialyzed yesterday and is back on his schedule - HD set up as outpt for tomorrow - will require HD here if not discharged - discussed with medical team earlier today - will follow Dr Naranjo
[2018-04-03] MEDS: ATORVASTATIN CA 80 MG TABLET (FP) PO SCH (22:05)
[2018-04-03] MEDS: PHENYTOIN NA EXTENDED 100 MG CAPSULE (FP) PO SCH (22:05)
[2018-04-04 00:07] LABS: HBSAG SCREEN Negative (Negative); HEP A AB, IGM Negative (Negative); HEP B CORE AB, TOT Positive (Negative)
[2018-04-04] MEDS: HEPARIN NA (PORCINE) 5,000 UNITS/ML 1ML VIAL SQ SCH ×3 (06:36→22:36)
[2018-04-04] MEDS: INSULIN SLIDING SCALE (NOVOLOG) 1 VIAL SQ SCH ×4 (06:37→22:38)
[2018-04-04] MEDS: CALCIUM ACETATE 667 MG CAPSULE (FP) PO SCH (08:37)
[2018-04-04] MEDS ORDERED: SODIUM CHLORIDE 250 ML IV PRN (09:29)
[2018-04-04] MEDS ORDERED: PT OWN MED DRAWER 7, Y5N ONE (09:39)
[2018-04-04] MEDS: PHENYTOIN NA EXTENDED 100 MG CAPSULE (FP) PO SCH ×2 (09:40→22:36)
[2018-04-04] MEDS: ASCORBIC ACID 500 MG TABLET (FP) PO SCH (09:40)
[2018-04-04] MEDS: SERTRALINE HCL 50 MG TABLET (FP) PO SCH (09:40)
[2018-04-04] MEDS: ASPIRIN 81 MG CHEWABLE TABLETS PO SCH (09:40)
[2018-04-04] MEDS: LABETALOL HCL 200 MG TABLET (FP) PO SCH ×2 (09:41→22:36)
[2018-04-04] MEDS: VITAMIN B COMP W-C 1 EA TABLET PO SCH (09:41)
--- NOTE | 2018-04-04 10:39 | PN ---
Progress Note (short form) - Note Progress Note: RENAL Pt is now in HD unit being dialyzed comfortable Last Vital Signs Temp Pulse Resp BP Pulse Ox 98.3 F 72 18 145/67 97 04/04/18 10:00 04/04/18 10:10 04/04/18 10:10 04/04/18 10:10 04/04/18 09:00 heent no jvd, supple lungs clear cvs s1s2 rr abd soft ext no edema CBC, BMP 04/03/18 11:50 04/03/18 11:50 Current Medications Generic Name Dose Route Start Last Admin Trade Name Freq PRN Reason Stop Dose Admin Ascorbic Acid 500 mg 04/01/18 10:00 04/04/18 09:40 Vitamin C - PO 500 mg DAILY [facility] Administration Aspirin 81 mg 04/01/18 10:00 04/04/18 09:40 Asa - PO 81 mg DAILY [facility] Administration Atorvastatin Calcium 80 mg 04/01/18 22:00 04/03/18 22:05 Lipitor - PO 80 mg HS [facility] Administration Calcium Acetate 667 mg 04/01/18 08:00 04/04/18 08:37 Phoslo - PO 667 mg DAILY@0800 [facility] Administration Heparin Sodium (Porcine) 5,000 unit 04/01/18 06:00 04/04/18 06:36 Heparin - SQ 5,000 unit TID [facility] Administration Sodium Chloride 250 mls @ 3,000 mls/hr 04/04/18 09:29 Normal Saline - IV 04/05/18 09:29 PRN PRN Hypotension during Dialysis Insulin Aspart 1 vial 04/01/18 07:00 04/04/18 06:37 Novolog Vial Sliding Scale - SQ Not Given ACHS [facility] Protocol Labetalol HCl 200 mg 04/01/18 10:00 04/04/18 09:41 Normodyne - PO 200 mg BID [facility] Administration Multivit/Ca Carb/B Cmplx/FA/Prenat 1 tablet 04/01/18 10:00 04/04/18 09:41 Nephro-Masha - PO 1 tablet DAILY [facility] Administration Phenytoin Sodium 200 mg 04/03/18 22:00 04/04/18 09:40 Dilantin - PO 200 mg BID [facility] Administration Sertraline HCl 50 mg 04/01/18 10:00 04/04/18 09:40 Zoloft - PO 50 mg DAILY [facility] Administration Impression 1. ESRD 2. chol 3. hx CVA 4. HTN 5. altered mental status 6. failure to thrive 7. hyperkalemia 8. PNA 9. seizure 10. dilantin toxicity PLAN no objection to discharge being dialyzed now prior to dc MV
--- NOTE | 2018-04-04 11:46 | DS ---
Physical Examination Vital Signs: Vital Signs Temperature 98.3 F 04/04/18 10:00 Pulse Rate 72 04/04/18 10:10 Respiratory Rate 18 04/04/18 10:10 Blood Pressure 145/67 04/04/18 10:10 O2 Sat by Pulse Oximetry (%) 97 04/04/18 09:00 Cardiovascular: Yes: S1, S2 Respiratory: Yes: Regular, CTA Bilaterally Gastrointestinal: Yes: Normal Bowel Sounds, Soft Neurological: Yes: Alert Labs: CBC, BMP 04/03/18 11:50 04/03/18 11:50 Discharge Summary Reason For Visit: HYPERKALEMIA END STAGE RENAL FAILURE Current Active Problems ESRD (end stage renal disease) on dialysis (Acute) Elevated lipase (Acute) Hyperkalemia (Acute) Seizure (Acute) Hospital Course: 52 y/o male patient presented to the hospital after the patient has missed dialysis session Dilantin was held due to toxicity - Problems (1) ESRD (end stage renal disease) on dialysis Assessment/Plan: -Seen by Nephrology -HD MWF -OK by nephrology to go back to [facility] Code(s): N18.6 - END STAGE RENAL DISEASE; Z99.2 - DEPENDENCE ON RENAL DIALYSIS (2) Elevated lipase Assessment/Plan: -Seen by GI, elevated lipase multifactorial in case of ESRD Code(s): R74.8 - ABNORMAL LEVELS OF OTHER SERUM ENZYMES (3) Seizure Assessment/Plan: -Neurology consult appreciated -Dilantin held due to toxicity -called neurology to clarify when and how much dilantin to initiate after discharge Code(s): R56.9 - UNSPECIFIED CONVULSIONS - Instructions Diet, Activity, Other Instructions: CBC, CMP,amylase and lipase, Dilantin level in 1 week Follow up with Neurology in 1 week. Condition: Guarded - Instructions Diet, Activity, Other Instructions: CBC, CMP,amylase and lipase, Dilantin level in 1 week Follow up with Neurology in 1 week. Referrals: Edilberto Carmichael MD [Primary Care Provider] - Mickey Alberto MD [Staff Physician] - Disposition: NURSING HOME FACILITY - Home Medications Comprehensive Discharge Medication List: Ambulatory Orders Current Medications Ascorbic Acid (Vitamin C -) 500 mg PO DAILY [facility] Last Admin: 04/04/18 09:40 Dose: 500 mg Aspirin (Asa -) 81 mg PO DAILY [facility] Last Admin: 04/04/18 09:40 Dose: 81 mg Atorvastatin Calcium (Lipitor -) 80 mg PO HS [facility] Last Admin: 04/03/18 22:05 Dose: 80 mg Calcium Acetate (Phoslo -) 667 mg PO DAILY@0800 [facility] Last Admin: 04/04/18 08:37 Dose: 667 mg Heparin Sodium (Porcine) (Heparin -) 5,000 unit SQ TID [facility] Last Admin: 04/04/18 06:36 Dose: 5,000 unit Sodium Chloride (Normal Saline -) 250 mls @ 3,000 mls/hr IV PRN PRN PRN Reason: Hypotension during Dialysis Stop: 04/05/18 09:29 Insulin Aspart (Novolog Vial Sliding Scale -) 1 vial SQ ACHS [facility]; Protocol Last Admin: 04/04/18 06:37 Dose: Not Given Labetalol HCl (Normodyne -) 200 mg PO BID [facility] Last Admin: 04/04/18 09:41 Dose: 200 mg Multivit/Ca Carb/B Cmplx/FA/Prenat (Nephro-Masha -) 1 tablet PO DAILY [facility] Last Admin: 04/04/18 09:41 Dose: 1 tablet Phenytoin Sodium (Dilantin -) 200 mg PO BID [facility] Last Admin: 04/04/18 09:40 Dose: 200 mg Sertraline HCl (Zoloft -) 50 mg PO DAILY [facility] Last Admin: 04/04/18 09:40 Dose: 50 mg
[2018-04-04] MEDS: ATORVASTATIN CA 80 MG TABLET (FP) PO SCH (22:36)
[2018-04-05] MEDS: INSULIN SLIDING SCALE (NOVOLOG) 1 VIAL SQ SCH ×3 (06:22→16:35)
[2018-04-05] MEDS: HEPARIN NA (PORCINE) 5,000 UNITS/ML 1ML VIAL SQ SCH ×2 (06:22→13:37)
[2018-04-05] MEDS: CALCIUM ACETATE 667 MG CAPSULE (FP) PO SCH ×2 (08:41→11:55)
--- NOTE | 2018-04-05 10:46 | PN ---
Progress Note, Physician Chief Complaint: ESRD History of Present Illness: NAD labs to be done today Had HD yesterday Also seen by neurology for dilantin toxicity Dilantin restarted at lower dose Pending discharge to [facility] - Current Medication List Current Medications: Active Medications Ascorbic Acid (Vitamin C -) 500 mg PO DAILY [facility] Last Admin: 04/04/18 09:40 Dose: 500 mg Aspirin (Asa -) 81 mg PO DAILY [facility] Last Admin: 04/04/18 09:40 Dose: 81 mg Atorvastatin Calcium (Lipitor -) 80 mg PO HS [facility] Last Admin: 04/04/18 22:36 Dose: 80 mg Calcium Acetate (Phoslo -) 667 mg PO DAILY@0800 [facility] Last Admin: 04/05/18 08:41 Dose: 667 mg Heparin Sodium (Porcine) (Heparin -) 5,000 unit SQ TID [facility] Last Admin: 04/05/18 06:22 Dose: 5,000 unit Insulin Aspart (Novolog Vial Sliding Scale -) 1 vial SQ ACHS [facility]; Protocol Last Admin: 04/05/18 06:22 Dose: Not Given Labetalol HCl (Normodyne -) 200 mg PO BID [facility] Last Admin: 04/04/18 22:36 Dose: 200 mg Multivit/Ca Carb/B Cmplx/FA/Prenat (Nephro-Masha -) 1 tablet PO DAILY [facility] Last Admin: 04/04/18 09:41 Dose: 1 tablet Phenytoin Sodium (Dilantin -) 200 mg PO BID [facility] Last Admin: 04/04/18 22:36 Dose: 200 mg Sertraline HCl (Zoloft -) 50 mg PO DAILY [facility] Last Admin: 04/04/18 09:40 Dose: 50 mg - Objective Vital Signs: Vital Signs Temperature 98.1 F 04/05/18 06:00 Pulse Rate 75 04/05/18 06:00 Respiratory Rate 18 04/05/18 06:00 Blood Pressure 129/61 04/05/18 06:00 O2 Sat by Pulse Oximetry (%) 97 04/04/18 21:00 Constitutional: Yes: Well Nourished, No Distress, Calm Cardiovascular: Yes: Regular Rate and Rhythm Respiratory: Yes: Regular Gastrointestinal: Yes: Normal Bowel Sounds, Soft Musculoskeletal: Yes: Muscle Weakness Neurological: Yes: Alert Psychiatric: Yes: Alert Labs: CBC, BMP 04/03/18 11:50 04/03/18 11:50 INR, PTT INR 0.99 (0.82-1.09) 03/30/18 17:40 Problem List - Problems (1) ESRD (end stage renal disease) on dialysis Assessment/Plan: -Seen by Nephrology -HD MWF -OK by nephrology to go back to [facility] Code(s): N18.6 - END STAGE RENAL DISEASE; Z99.2 - DEPENDENCE ON RENAL DIALYSIS (2) Elevated lipase Assessment/Plan: -Seen by GI, elevated lipase multifactorial in case of ESRD Code(s): R74.8 - ABNORMAL LEVELS OF OTHER SERUM ENZYMES (3) Seizure Assessment/Plan: -Neurology consult appreciated -dilantin restarted at lower dose -repeat dilantin levels in 1 week Code(s): R56.9 - UNSPECIFIED CONVULSIONS Assessment/Plan see problem list
[2018-04-05] MEDS ORDERED: ONDANSETRON 4 MG/2 ML VIAL IVPB PRN (11:15)
[2018-04-05] MEDS ORDERED: PT OWN MED DRAWER 7, Y5N ONE (11:49)
[2018-04-05] MEDS: PHENYTOIN NA EXTENDED 100 MG CAPSULE (FP) PO SCH (11:53)
[2018-04-05] MEDS: ASPIRIN 81 MG CHEWABLE TABLETS PO SCH (11:53)
[2018-04-05] MEDS: VITAMIN B COMP W-C 1 EA TABLET PO SCH (11:54)
[2018-04-05] MEDS: LABETALOL HCL 200 MG TABLET (FP) PO SCH (11:54)
[2018-04-05] MEDS: SERTRALINE HCL 50 MG TABLET (FP) PO SCH (11:54)
[2018-04-05] MEDS: ASCORBIC ACID 500 MG TABLET (FP) PO SCH (11:54)
--- NOTE | 2018-04-05 12:30 | PN ---
Progress Note, Physician History of Present Illness: Pt seen and examined at bedside. He is sitting up in bed eating. He was dialyzed yesterday. - Current Medication List Current Medications: Active Medications Ascorbic Acid (Vitamin C -) 500 mg PO DAILY [facility] Last Admin: 04/05/18 11:54 Dose: 500 mg Aspirin (Asa -) 81 mg PO DAILY [facility] Last Admin: 04/05/18 11:53 Dose: 81 mg Atorvastatin Calcium (Lipitor -) 80 mg PO HS [facility] Last Admin: 04/04/18 22:36 Dose: 80 mg Calcium Acetate (Phoslo -) 667 mg PO DAILY@0800 [facility] Last Admin: 04/05/18 08:41 Dose: 667 mg Heparin Sodium (Porcine) (Heparin -) 5,000 unit SQ TID [facility] Last Admin: 04/05/18 06:22 Dose: 5,000 unit Insulin Aspart (Novolog Vial Sliding Scale -) 1 vial SQ ACHS [facility]; Protocol Last Admin: 04/05/18 11:47 Dose: Not Given Labetalol HCl (Normodyne -) 200 mg PO BID [facility] Last Admin: 04/05/18 11:54 Dose: 200 mg Multivit/Ca Carb/B Cmplx/FA/Prenat (Nephro-Masha -) 1 tablet PO DAILY [facility] Last Admin: 04/05/18 11:54 Dose: 1 tablet Ondansetron HCl (Zofran Injection) 8 mg IVPB Q8H PRN PRN Reason: NAUSEA Last Admin: 04/05/18 11:33 Dose: 8 mg Phenytoin Sodium (Dilantin -) 200 mg PO BID [facility] Last Admin: 04/05/18 11:53 Dose: Not Given Sertraline HCl (Zoloft -) 50 mg PO DAILY [facility] Last Admin: 04/05/18 11:54 Dose: 50 mg - Objective Vital Signs: Vital Signs Temperature 98.1 F 04/05/18 06:00 Pulse Rate 75 04/05/18 06:00 Respiratory Rate 18 04/05/18 06:00 Blood Pressure 129/61 04/05/18 06:00 O2 Sat by Pulse Oximetry (%) 97 04/04/18 21:00 Constitutional: Yes: Calm Eyes: Yes: Conjunctiva Clear HENT: Yes: Atraumatic Neck: Yes: Supple Cardiovascular: Yes: S1, S2 Respiratory: Yes: CTA Bilaterally Gastrointestinal: Yes: Soft Genitourinary: Yes: WNL Musculoskeletal: Yes: Muscle Weakness Edema: No Neurological: Yes: Pre-Existing Deficit, Other (awake and appears comfortable) Labs: CBC, BMP 04/03/18 11:50 04/03/18 11:50 INR, PTT INR 0.99 (0.82-1.09) 03/30/18 17:40 Problem List - Problems (1) ESRD (end stage renal disease) on dialysis Code(s): N18.6 - END STAGE RENAL DISEASE; Z99.2 - DEPENDENCE ON RENAL DIALYSIS Assessment/Plan Current Medications Generic Name Dose Route Start Last Admin Trade Name Freq PRN Reason Stop Dose Admin Ascorbic Acid 500 mg 04/01/18 10:00 04/05/18 11:54 Vitamin C - PO 500 mg DAILY [facility] Administration Aspirin 81 mg 04/01/18 10:00 04/05/18 11:53 Asa - PO 81 mg DAILY [facility] Administration Atorvastatin Calcium 80 mg 04/01/18 22:00 04/04/18 22:36 Lipitor - PO 80 mg HS [facility] Administration Calcium Acetate 667 mg 04/01/18 08:00 04/05/18 08:41 Phoslo - PO 667 mg DAILY@0800 [facility] Administration Heparin Sodium (Porcine) 5,000 unit 04/01/18 06:00 04/05/18 06:22 Heparin - SQ 5,000 unit TID [facility] Administration Insulin Aspart 1 vial 04/01/18 07:00 04/05/18 11:47 Novolog Vial Sliding Scale - SQ Not Given ACHS [facility] Protocol Labetalol HCl 200 mg 04/01/18 10:00 04/05/18 11:54 Normodyne - PO 200 mg BID [facility] Administration Multivit/Ca Carb/B Cmplx/FA/Prenat 1 tablet 04/01/18 10:00 04/05/18 11:54 Nephro-Masha - PO 1 tablet DAILY [facility] Administration Ondansetron HCl 8 mg 04/05/18 11:15 04/05/18 11:33 Zofran Injection IVPB 8 mg Q8H PRN Administration NAUSEA Phenytoin Sodium 200 mg 04/03/18 22:00 04/05/18 11:53 Dilantin - PO Not Given BID [facility] Sertraline HCl 50 mg 04/01/18 10:00 04/05/18 11:54 Zoloft - PO 50 mg DAILY [facility] Administration Impression 1. ESRD 2. chol 3. hx CVA 4. HTN 5. altered mental status 6. failure to thrive 7. hyperkalemia 8. PNA 9. seizure Plan - pt tolerated HD yesterday - HD tomorrow - has HD set up as outpt - pending discharge to [facility] - will follow Dr Naranjo
[2018-04-05 15:34] VITALS: BP 95/50; PULSE 74; TEMP 98.6
== END 2018-04-05 18:01 | DRG 460 ==
LOC: JER 16:56 → JERBED 23:49 → OBSVTOIN 23:55 → JERBED 03-31 00:47 → UNDOADMOB 03-31 00:47 → J8W 03-31 11:05
PROVIDERS: ADMIT Internal Medicine; ATTEND Family Medicine
PROC: 5A1D70Z Performance of Urinary Filtration, Intermittent, Less than 6 Hours Per Day (ICD-10-PCS; principal; 2018-04-02)
DX: I12.0 Hypertensive chronic kidney disease with stage 5 chronic kidney disease or end stage renal disease (principal); G93.41 Metabolic encephalopathy; J90 Pleural effusion, not elsewhere classified; R56.9 Unspecified convulsions; E11.22 Type 2 diabetes mellitus with diabetic chronic kidney disease; E87.5 Hyperkalemia; E87.1 Hypo-osmolality and hyponatremia; I69.354 Hemiplegia and hemiparesis following cerebral infarction affecting left non-dominant side; R62.7 Adult failure to thrive; N18.6 End stage renal disease; I69.320 Aphasia following cerebral infarction; T42.0X5A Adverse effect of hydantoin derivatives, initial encounter; R74.8 Abnormal levels of other serum enzymes; E78.5 Hyperlipidemia, unspecified; D64.9 Anemia, unspecified; Z79.4 Long term (current) use of insulin; R11.2 Nausea with vomiting, unspecified; R32 Unspecified urinary incontinence; Z99.2 Dependence on renal dialysis
CPT/HCPCS: 36415; 71045-TC-FY; 76705-TC; 80053; 80185; 82150; 82550; 82962; 83605; 83690; 83735; 84100; 84484; 85025; 85610; 86704; 86706; 86708; 86803; 87340; 93005; 93010; 93880-TC; 99284-25; G0378; J1644

== ENCOUNTER 2018-06-18 23:48 | Emergency (ER) | payer OTHER ==
[2018-06-19 00:51] VITALS: BP 105/59; PULSE 76; TEMP 97; BMI 25.7
--- NOTE | 2018-06-19 02:09 | PDOC ---
History of Present Illness - General Chief Complaint: AV shunt bleeding Stated Complaint: FISTULA PROBLEM Time Seen by Provider: 06/19/18 01:54 History Source: EMS, Long-Term Records Exam Limitations: Other - History of Present Illness Initial Comments: 06/19/18 02:04 This is a 52 YOM with h/o ESRD on HD, RUE AVF, hyperkalemia, CVA, residual weakness and aphasia, seizures, diabetes, HTN, and HLD who was BIBEMS for "hemorrhaging of AVF". The patient is nonverbal and unable to provide any medical history. 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 [employer] Past History - Past Medical History Allergies/Adverse Reactions: Allergies Allergy/AdvReac Type Severity Reaction Status Date / Time No Known Allergies Allergy Verified 06/19/18 00:48 Home Medications: Ambulatory Orders Acetaminophen [Tylenol] 650 mg PO PRN PRN 12/23/17 Ascorbic Acid [Vitamin C -] 500 mg PO DAILY 12/23/17 Aspirin 81 mg PO DAILY 12/23/17 Atorvastatin Ca [Lipitor] 80 mg PO HS 12/23/17 Calcium Acetate [Phoslo -] 667 mg PO TID 12/23/17 Labetalol HCl [Normodyne -] 200 mg PO BID 12/23/17 Sertraline HCl [Zoloft -] 50 mg PO DAILY 12/23/17 Vitamin B Comp W-C [Nephro-Masha -] 1 tablet PO DAILY 12/23/17 Phenytoin Na Extended [Dilantin -] 200 mg PO BID capsule 04/04/18 Ondansetron [Zofran -] 4 mg PO AC #90 tablet 04/05/18 Anemia: No CVA: Yes (X 2 WITH RESIDUAL WEAKNESS AND APHASIA.) Diabetes: Yes Dialysis: Yes (MO-WE-) HTN: Yes Hypercholesterolemia: Yes Kidney Stones: Yes - Suicide/Smoking/Psychosocial Hx Smoking History: Unknown if ever smoked Have you smoked in the past 12 months: No Information on smoking cessation initiated: No Hx Alcohol Use: No Drug/Substance Use Hx: No Substance Use Type: None Hx Substance Use Treatment: No Review of Systems - Review of Systems Able to Perform ROS?: No (patient nonverbal) *Physical Exam - Vital Signs Last Vital Signs Temp Pulse Resp BP Pulse Ox 97 F L 76 20 105/59 98 06/18/18 23:49 06/18/18 23:49 06/18/18 23:49 06/18/18 23:49 06/18/18 23:49 ED Treatment Course - LABORATORY CBC & Chemistry Diagram: 06/19/18 02:23 06/19/18 02:23 Medical Decision Making - Medical Decision Making 06/19/18 02:59 On speaking with RN telesales supervisor for [facility], she notes: Noticed that he had bleeding from his fistula this evening. Went in the afternoon to HD. Adult patient p/w "hemorrhage from AVF". Patient himself unable to get additional history. Initial Vital Signs Temp Pulse Resp BP Pulse Ox 97 F L 76 20 105/59 98 06/18/18 23:49 06/18/18 23:49 06/18/18 23:49 06/18/18 23:49 06/18/18 23:49 Exam: As noted in Physical Exam section. DDX IBNLT: AVF malfunction W/U ordered: Labs as noted below TX ordered: None Laboratory Tests 06/19/18 06/19/18 06/19/18 02:23 02:23 02:23 WBC 5.2 RBC 3.14 L Hgb 10.1 L Hct 30.3 L MCV 96.4 H MCH 32.2 MCHC 33.3 RDW 16.4 H Plt Count 189 MPV 7.1 L D Absolute Neuts (auto) 3.1 Neutrophils % 58.7 D Lymphocytes % 16.8 D Monocytes % 12.6 H Eosinophils % 10.4 H Basophils % 1.5 Nucleated RBC % 0 PT with INR 11.70 INR 1.04 Sodium 135 L Potassium 4.7 Chloride 98 Carbon Dioxide 32 Anion Gap 5 L BUN 26 H Creatinine 5.0 H Creat Clearance w eGFR 12.25 Random Glucose 66 L Calcium 7.5 L Total Bilirubin 0.3 AST 24 ALT 18 Alkaline Phosphatase 218 H Total Protein 6.2 L Albumin 2.8 L 06/19/18 03:26 Reassessment: Unchanged, no AV fistula bleeding. Repeat VS: DISCHARGE Patient given orange juice for BG 66 (potassium is 4.7). Will recheck finger stick prior to leaving. Workup is not concerning for emergency-level pathology at this time. The Pt is appropriate for discharge with close outpatient follow up. They are comfortable with this plan and will follow up with their PCP in 1-3 days. Specific return precautions are discussed and they will come back to the ER if necessary. *DC/Admit/Observation/Transfer Diagnosis at time of Disposition: Dialysis AV fistula malfunction Qualifiers: Encounter type: initial encounter Qualified Code(s): T82.590A - Other mechanical complication of surgically created arteriovenous fistula, initial encounter - Discharge Dispostion Condition at time of disposition: Stable Decision to Admit order: No - Referrals Referrals: Kp Riley MD [Primary Care Provider] - - Patient Instructions Additional Instructions: Mr. Bryson was seen in the ER for AV fistula bleeding. We did an exam and laboratory work, and the results were no different from his baseline. After our assessment, we do not believe he is having a medical emergency at this time, and we believe he is safe to go back to [facility]. Please follow up with Dr. Riley in the morning (06/19/18) and have him check to make sure the fistula still looks well (it does to us here in the ED today). If there are any new or worsening symptoms, especially worsening bleeding from the site, please come back to the ER at any time (24 hours a day). - Post Discharge Activity
[2018-06-19 02:36] LABS: BASO % 1.5 % (0-2.0); EOS % 10.4 % (0-4.5); HEMATOCRIT 30.3 % (35.4-49); HEMOGLOBIN 10.1 GM/dL (11.7-16.9); LYMPH % 16.8 % (8-40); MCH 32.2 pg (25.7-33.7); MCHC 33.3 g/dl (32.0-35.9); MEAN CELL VOLUME 96.4 fl (80-96); MEAN PLT VOLUME 7.1 fl (7.5-11.1); MONO % 12.6 % (3.8-10.2); NEUT % 58.7 % (42.8-82.8); PLATELET COUNT 189 K/MM3 (134-434); RBC 3.14 M/mm3 (4.00-5.60); RDW 16.4 % (11.9-15.9); WHITE BLOOD COUNT 5.2 K/mm3 (4.0-10.0)
[2018-06-19 03:01] LABS: INR 1.04 (0.83-1.09); PROTHROMBIN TIME (PATIENT) 11.7 SEC (9.7-13.0)
[2018-06-19 03:10] LABS: ALBUMIN 2.8 g/dl (3.4-5.0); ANION GAP 5 MMOL/L (8-16); BILIRUBIN,TOTAL 0.3 mg/dL (0.2-1); BLOOD UREA NITROGEN 26 mg/dL (7-18); CALCIUM 7.5 mg/dL (8.5-10.1); CHLORIDE 98 mmol/L (98-107); CO2 32 mmol/L (21-32); GLUCOSE,RANDOM 66 mg/dL (74-106); POTASSIUM 4.7 mmol/L (3.5-5.1); SGOT/AST 24 U/L (15-37); SGPT/ALT 18 U/L (13-61); SODIUM 135 mmol/L (136-145); TOT PROT 6.2 g/dl (6.4-8.2)
[2018-06-19 03:11] LABS: ALK PHOS 218 U/L (45-117)
--- NOTE | 2018-06-19 04:02 | PDOC ---
Attending Attestation - Resident Resident Name: Carmela Saucedo - ED Attending Attestation I have performed the following: I have examined & evaluated the patient, The case was reviewed & discussed with the resident, I agree w/resident's findings & plan, Exceptions are as noted - HPI HPI: 06/19/18 03:59 52 YOM with h/o ESRD on HD, RUE AVF, hyperkalemia, CVA, residual weakness and aphasia, seizures, diabetes, HTN, and HLD here from [facility] nursing For concerns of a bleeding fistula on the right upper extremity. Patient's normal dialysis day is Monday he did not miss dialysis today following dialysis a dressing was placed however he pulled the dressing off and it was apparently bleeding profusely patient is a phasic unable to provide any additional history the history is obtained from staff at [facility] - Physicial Exam PE: 06/19/18 04:00 Awake alert no acute distress lungs are clear bilaterally heart is regular without any murmurs rubs or gallops abdomen is soft nontender right upper extremity is noted for a fistula there is a small overlying scabbed lesion there is no active bleeding no erythema no effusion there is also a left upper extremities fistula with a good bruit as well and no overlying bleeding or lesions - Medical Decision Making 06/19/18 04:01 At this point bleeding fistula appears to be controlled was likely a superficial wound there is a good bruit bilaterally discussed with [facility] will transfer patient back told to return for any further bleeding or concerns the fistula is not usable at this point it appears to be with a good bruit and no signs of trauma or infection
== END 2018-06-19 04:12 | disposition short-term general hospital (02) ==
LOC: JER 23:48
DX: T82.590A Other mechanical complication of surgically created arteriovenous fistula, initial encounter (principal); E78.5 Hyperlipidemia, unspecified; E11.22 Type 2 diabetes mellitus with diabetic chronic kidney disease; I12.0 Hypertensive chronic kidney disease with stage 5 chronic kidney disease or end stage renal disease; N18.6 End stage renal disease; Z99.2 Dependence on renal dialysis
CPT/HCPCS: 36415; 80053; 85025; 85610; 99282-25

== ENCOUNTER 2018-09-20 08:12 | Inpatient (IN) | payer OTHER ==
--- NOTE | 2018-09-20 08:19 | PDOC ---
History of Present Illness - General Chief Complaint: Dialysis Shunt Problem Stated Complaint: Dialysis Shunt Problem Time Seen by Provider: 09/20/18 08:18 History Source: Patient Exam Limitations: Clinical Condition, Unresponsive - History of Present Illness Initial Comments: 52 yo M w a hx of ESRD on HD - m/w/f, hyperkalemia, CVA, residual weakness and aphasia, seizures, diabetes, HTN, and HLD who was BIBEMS with the chief complaint of "dialysis shunt problem." The patient is non-verbal and cannot contribute any history. He is lying in the bed comfortably and does not appear to be in any distress. History is limited as patient does not speak. As per [facility]: patient was sent in because fistula is not working. He has a RUE AVF which appears to be clotted, not working, and there is no audible bruit. There is also a fistula in the LUE which has a bruit and sounds in tact on auscultation. PCP: Kp Riley Pork Cutlet Maker: Dr. Naranjo Allergies: NKA, NKDA Social Hx: Patient does not smoke, drink, or use illicit drugs. Past History - Past Medical History Allergies/Adverse Reactions: Allergies Allergy/AdvReac Type Severity Reaction Status Date / Time No Known Allergies Allergy Verified 06/19/18 00:48 Home Medications: Ambulatory Orders Acetaminophen [Tylenol] 650 mg PO DAILY 09/20/18 Ascorbic Acid [Vitamin C] 500 mg PO DAILY 09/20/18 Aspirin 81 mg PO DAILY 09/20/18 Atorvastatin Ca [Lipitor] 80 mg PO HS 09/20/18 Calcium Acetate 667 mg PO TID 09/20/18 Furosemide [Lasix] 40 mg PO DAILY 09/20/18 Labetalol HCl [Normodyne -] 200 mg PO BID 09/20/18 Ondansetron [Zofran Odt -] 4 mg SL TID 09/20/18 Phenytoin Oral Suspension [Dilantin Oral Suspension 100 MG/4 ML] 200 mg PO BID 09/20/18 Sertraline HCl [Zoloft -] 50 mg PO DAILY 09/20/18 Vitamin B Comp W-C [Nephro-Masha -] 1 tablet PO DAILY 09/20/18 Anemia: No CVA: Yes (X 2 WITH RESIDUAL WEAKNESS AND APHASIA.) COPD: No Diabetes: Yes Dialysis: Yes (MO-WE-FR) HTN: Yes Hypercholesterolemia: Yes Kidney Stones: Yes - Suicide/Smoking/Psychosocial Hx Smoking History: Unknown if ever smoked Have you smoked in the past 12 months: No Hx Alcohol Use: No Drug/Substance Use Hx: No Substance Use Type: None Hx Substance Use Treatment: No Review of Systems - Review of Systems Able to Perform ROS?: No (Patient is non-verbal) *Physical Exam - Physical Exam General Appearance: Yes: Nourished, Appropriately Dressed. No: Apparent Distress HEENT: positive: TINO, Normal ENT Inspection. negative: Scleral Icterus (R), Scleral Icterus (L), Nasal Congestion, Excessive drooling Neck: positive: Trachea midline, Supple, Decreased range of motion. negative: Lymphadenopathy (R), Lymphadenopathy (L) Respiratory/Chest: positive: Lungs Clear, Normal Breath Sounds. negative: Respiratory Distress, Accessory Muscle Use, Labored Respiration, Crackles, Rales , Rhonchi, Stridor, Wheezing Cardiovascular: positive: Regular Rhythm, Regular Rate, S1, S2. negative: Edema , JVD Vascular Pulses: Dorsalis-Pedis (R): 2+, Doralis-Pedis (L): 2+ Gastrointestinal/Abdominal: positive: Normal Bowel Sounds, Flat. negative: Soft , Distended, Guarding, Rebound Rectal Exam: positive: deferred Lymphatic: negative: Adenopathy Musculoskeletal: positive: Normal Inspection, Decreased Range of Motion Extremity: positive: Normal Capillary Refill, Normal Inspection. negative: Normal Range of Motion, Coldness, Cyanosis, Delayed Capillary Refill, Pedal Edema Integumentary: positive: Normal Color, Dry, Warm Neurologic: positive: Alert, Normal Mood/Affect, Motor Strength 5/5. negative: Fully Oriented, Facial Droop ED Treatment Course - LABORATORY CBC & Chemistry Diagram: 09/20/18 09:37 09/20/18 09:37 Medical Decision Making - Medical Decision Making 52 yo M w a hx of ESRD on HD - m//, hyperkalemia, CVA, residual weakness and aphasia, seizures, diabetes, HTN, and HLD who was BIBEMS with the chief complaint of "dialysis shunt problem." DDx IBNLT: Shunt problem, hyperkalemia, CVA, ACS, electrolyte abnormality, PNA Plan: Cbc, Cmp, EKG, CXR, Renal consult, re-assess. Spoke with Dr. Naranjo. He will come assess the patient and he requested I consult Dr. Jc. Also requested patient be made NPO in the ER. Consult placed at 11:30 am. Patient was made NPO Potassium: 4.7 Sodium: 132 Bun: 24 Cr: 5.[address] Jc - He will come evaluate the patient and assess whether he is a candidate for thrombectomy. *DC/Admit/Observation/Transfer Diagnosis at time of Disposition: Dialysis AV fistula malfunction - Discharge Dispostion Condition at time of disposition: Stable Decision to Admit order: Yes - Referrals Referrals: Kp Riley MD [Primary Care Provider] - - Patient Instructions - Post Discharge Activity
--- NOTE | 2018-09-20 08:54 | PDOC ---
Attending Attestation - Medical Decision Making 09/20/18 11:[address] Naranjo, patient's renal doctor, awaiting call back. 11:22am Call returned from Dr. Naranjo, case discussed with resident Dr. Chava Stuart. Call placed to Dr. Paulo Jc's office, awaiting call back. 11:43am Call returned from Dr. Jc, case was discussed. 14:[address] Jc's office, awaiting call back. 16:[address] Jc's office, awaiting call back. <Aneta Treadwell - Last Filed: 09/20/18 16:56> - Resident Resident Name: Chava Stuart - ED Attending Attestation I have performed the following: I have examined & evaluated the patient, The case was reviewed & discussed with the resident, I agree w/resident's findings & plan, Exceptions are as noted - HPI HPI: 09/20/18 08:51 52y [place] (MWF, lsat dialysis ), CVA (aphasia), seizures , hl, htn [place] for clotted fistula. Per sister the patient had dialysis yesterday they also put a pressure dressing on it for several days prior to that. hstory is limited from the patient as he is nonverbal. but denies any pain. card: rrr, no mrg pulm cta b/l abd soft nontender ext: old R shunt w/o thrill and anuyrsm, L graft without thrill 09/20/18 09:45 - Physicial Exam PE: 09/28/18 07:28 see above - Medical Decision Making 09/20/18 10:05 will r/o metabolic derangements ekg w/o signs of prolonged intervals or peaked t waves will dw vascular <Sha Daigle - Last Filed: 09/28/18 07:28> Heart Score/ECG Review - ECG Impressions Comment:: 09/20/18 10:09 Twelve-lead EKG was performed and reviewed by me. There is normal sinus rhythm with a normal rate. Rate of 82 Multiple artifacts <Sha Daigle - Last Filed: 09/28/18 07:28> Attestations - Attestations 09/20/18 11:08 Documentation prepared by Aneta Treadwell, acting as medical laboratory technicians for Sha Daigle MD. <Aneta Treadwell - Last Filed: 09/20/18 16:56>
[2018-09-20 09:52] LABS: BASO % 0.7 % (0-2.0); EOS % 8.6 % (0-4.5); HEMATOCRIT 29.1 % (35.4-49); HEMOGLOBIN 10.2 GM/dL (11.7-16.9); LYMPH % 13.3 % (8-40); MCH 34.7 pg (25.7-33.7); MEAN CELL VOLUME 99.2 fl (80-96); MONO % 12.1 % (3.8-10.2); NEUT % 65.3 % (42.8-82.8); PLATELET COUNT 175 K/MM3 (134-434); RBC 2.93 M/mm3 (4.00-5.60); RDW 14.4 % (11.9-15.9); WHITE BLOOD COUNT 5.3 K/mm3 (4.0-10.0)
[2018-09-20 10:24] LABS: ALBUMIN 2.9 g/dl (3.4-5.0); ALK PHOS 260 U/L (45-117); ANION GAP 8 MMOL/L (8-16); BILIRUBIN,TOTAL 0.3 mg/dL (0.2-1); BLOOD UREA NITROGEN 24 mg/dL (7-18); CALCIUM 7.8 mg/dL (8.5-10.1); CHLORIDE 95 mmol/L (98-107); CO2 29 mmol/L (21-32); CREATININE 5.6 mg/dL (0.55-1.3); GLUCOSE,RANDOM 123 mg/dL (74-106); POTASSIUM 4.7 mmol/L (3.5-5.1); SGOT/AST 24 U/L (15-37); SGPT/ALT 22 U/L (13-61); SODIUM 132 mmol/L (136-145); TOT PROT 6.4 g/dl (6.4-8.2)
--- NOTE | 2018-09-20 16:20 | CONSULT ---
Consult Consult Specialty:: Nephrology Reason for Consultation:: ESRD - History of Present Illness Chief Complaint: sent in for access malfunction History of Present Illness: Pt is a 52 year old male with pmhx of CVA, ESRD, DM, HTN, and HLD who was sent in for access malfunction. He did get HD yesterday however the graft was not working well. He is unable to give history. His mother is at bedside. He appears comfortable and is hungry. - History Source History Provided By: Medical Record - Past Medical History [employer]CHITECT: Yes: CVA, Other (APHASIA) Cardio/Vascular: Yes: HTN Renal/: Yes: Renal Failure, Hemodialysis - Past Surgical History Past Surgical History: Yes: Carotid Endarterectomy - Alcohol/Substance Use Hx Alcohol Use: No - Smoking History Smoking history: Unknown if ever smoked Have you smoked in the past 12 months: No Home Medications - Allergies Allergies/Adverse Reactions: Allergies Allergy/AdvReac Type Severity Reaction Status Date / Time No Known Allergies Allergy Verified 06/19/18 00:48 - Home Medications Home Medications: Ambulatory Orders Acetaminophen [Tylenol] 650 mg PO DAILY 09/20/18 Ascorbic Acid [Vitamin C] 500 mg PO DAILY 09/20/18 Aspirin 81 mg PO DAILY 09/20/18 Atorvastatin Ca [Lipitor] 80 mg PO HS 09/20/18 Calcium Acetate 667 mg PO TID 09/20/18 Furosemide [Lasix] 40 mg PO DAILY 09/20/18 Labetalol HCl [Normodyne -] 200 mg PO BID 09/20/18 Ondansetron [Zofran Odt -] 4 mg SL TID 09/20/18 Phenytoin Oral Suspension [Dilantin Oral Suspension 100 MG/4 ML] 200 mg PO BID 09/20/18 Sertraline HCl [Zoloft -] 50 mg PO DAILY 09/20/18 Vitamin B Comp W-C [Nephro-Masha -] 1 tablet PO DAILY 09/20/18 Family Disease History - Family Disease History Family Disease History: Other: Sister (alive and well) Review of Systems - Review of Systems Constitutional: reports: No Symptoms Eyes: reports: No Symptoms HENT: reports: No Symptoms Neck: reports: No Symptoms Cardiovascular: reports: No Symptoms Respiratory: reports: No Symptoms Gastrointestinal: reports: No Symptoms Genitourinary: reports: No Symptoms Musculoskeletal: reports: Muscle Weakness Neurological: reports: Pre-Existing Deficit Physical Exam Vital Signs: Vital Signs Temperature 99.3 F 09/20/18 14:56 Pulse Rate 89 09/20/18 14:56 Respiratory Rate 16 09/20/18 14:56 Blood Pressure 150/75 09/20/18 14:56 O2 Sat by Pulse Oximetry (%) 96 09/20/18 14:56 Constitutional: Yes: Calm Eyes: Yes: Conjunctiva Clear HENT: Yes: Atraumatic Neck: Yes: Supple Cardiovascular: Yes: S1, S2 Respiratory: Yes: CTA Bilaterally Gastrointestinal: Yes: Soft Renal/: Yes: Incontinence Musculoskeletal: Yes: Muscle Weakness Extremities: Yes: Other (access with thrill and bruit) Neurological: Yes: Pre-Existing Deficit Labs: CBC, BMP 09/20/18 09:37 09/20/18 09:37 Laboratory Tests 09/20/18 09/20/18 09/20/18 09:37 09:37 09:37 Hgb 10.2 L PTT (Actin FS) 27.0 Sodium 132 L Potassium 4.7 Chloride 95 L BUN 24 H Creatinine 5.6 H Calcium 7.8 L Imaging - Results Chest X-ray: Report Reviewed Problem List - Problems (1) Dialysis AV fistula malfunction Code(s): T82.590A - [facility] COMPL OF SURGICALLY CREATED ARTERIOVENOUS FISTULA, INIT (2) ESRD (end stage renal disease) on dialysis Code(s): N18.6 - END STAGE RENAL DISEASE; Z99.2 - DEPENDENCE ON RENAL DIALYSIS Assessment/Plan Impression 1. ESRD 2. chol 3. hx CVA 4. HTN 5. access malfunction 6. epilepsy Plan - spoke to vascular to evaluate access - pending input for HD unit - HD tomorrow after access repaired - potassium is stable - case discussed with pts mother Dr Naranjo
--- NOTE | 2018-09-20 16:57 | EKG ---
Test Reason : Blood Pressure : / mmHG Vent. Rate : 082 BPM Atrial Rate : 082 BPM P-R Int : 140 ms QRS Dur : 078 ms QT Int : 398 ms P-R-T Axes : 070 026 041 degrees QTc Int : 464 ms POOR DATA QUALITY, INTERPRETATION MAY BE ADVERSELY AFFECTED SINUS RHYTHM WITH OCCASIONAL PREMATURE VENTRICULAR COMPLEXES OTHERWISE NORMAL ECG WHEN COMPARED WITH ECG OF 30-MAR-2018 18:15, PREMATURE VENTRICULAR COMPLEXES ARE NOW PRESENT NON-SPECIFIC CHANGE IN ST SEGMENT IN INFERIOR LEADS Confirmed by MAY TATE MD ([id number]) on 09/20/2018 4:56:56 PM Referred By: Confirmed By:MAY TATE MD
[2018-09-20] MEDS ORDERED: ACETAMINOPHEN 325 MG TABLET (FP) PO PRN (18:17)
--- NOTE | 2018-09-20 18:32 | HP ---
CHIEF COMPLAINT: Dialysis shunt access malfunction PCP: Dr. Kp Riley Fur Tanner: Dr. 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 He did have HD yesterday through the shunt, but it was not working well. Fur Tanner Dr. Naranjo and vascular surgeon Dr. Jc was consulted and patient is set to have a thrombectomy tomorrow on the right AV fistula. Upon admission to the ED, vss, labs notable for BUN/Cr 24/5.6, CXR unremarkable , EKG NSR. 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 [place] (from surgery 2014) Seizures diabetes HTN HLD ESRD on HD PAST SURGICAL HISTORY: Cervical discectomy and fusion AV fistula LUE Social History: Lives in [facility] Smoking: Never smoked Alcohol: None Drugs: None Family History: Sister (alive and well) Allergies No Known Allergies Allergy (Verified 06/19/18 00:48) HOME MEDICATIONS: Home Medications Medication Instructions Recorded Acetaminophen [Tylenol] 650 mg PO DAILY 09/20/18 Ascorbic Acid [Vitamin C] 500 mg PO DAILY 09/20/18 Aspirin 81 mg PO DAILY 09/20/18 Atorvastatin Ca [Lipitor] 80 mg PO HS 09/20/18 Calcium Acetate 667 mg PO TID 09/20/18 Furosemide [Lasix] 40 mg PO DAILY 09/20/18 Labetalol HCl [Normodyne -] 200 mg PO BID 09/20/18 Ondansetron [Zofran Odt -] 4 mg SL TID 09/20/18 Phenytoin Oral Suspension 200 mg PO BID 09/20/18 [Dilantin Oral Suspension 100 MG/4 ML] Sertraline HCl [Zoloft -] 50 mg PO DAILY 09/20/18 Vitamin B Comp W-C [Nephro-Masha -] 1 tablet PO DAILY 09/20/18 REVIEW OF SYSTEMS Unable to obtain; patient non-verbal PHYSICAL EXAMINATION Vital Signs - 24 hr 09/20/18 09/20/18 09/20/18 08:45 12:12 14:56 Temperature 98.5 F 98.5 F 99.3 F Pulse Rate 95 H Pulse Rate [ 77 89 Left Radial] Respiratory 16 16 16 Rate Blood Pressure 150/81 Blood Pressure 152/82 150/75 [Left Arm] O2 Sat by Pulse 95 99 96 Oximetry (%) GENERAL: Awake, alert, and fully oriented, in no acute distress. HEAD: Normal with no signs of trauma. EYES: Pupils equal, round and reactive to light, extraocular movements intact, sclera anicteric, conjunctiva clear. No lid lag. EARS, NOSE, THROAT: Ears normal, nares patent, oropharynx clear without exudates. Moist mucous membranes. NECK: Normal range of motion, supple without lymphadenopathy, JVD, or masses. LUNGS: Breath sounds equal, clear to auscultation bilaterally. No wheezes, and no crackles. No accessory muscle use. HEART: Regular rate and rhythm, normal S1 and S2 without murmur, rub or gallop. ABDOMEN: Soft, nontender, not distended, normoactive bowel sounds, no guarding, no rebound, no masses. No hepatomegaly or splenomegaly. MUSCULOSKELETAL: Normal range of motion at all joints. No bony deformities or tenderness. No CVA tenderness. UPPER EXTREMITIES: AV fistula to left upper, inner arm with loud bruit, AV fistula to right upper inner arm with no aduible pulsation. LOWER EXTREMITIES: 2+ pulses, warm, well-perfused. No calf tenderness. No peripheral edema. NEUROLOGICAL: Cranial nerves II-XII intact. Normal speech. Normal gait. PSYCHIATRIC: Cooperative. Good eye contact. Appropriate mood and affect. SKIN: Warm, dry, normal turgor, no rashes or lesions noted, normal capillary refill. Laboratory Results - last 24 hr 09/20/1818 09/20/18 09:37 09:37 09:37 WBC 5.3 RBC 2.93 L Hgb 10.2 L Hct 29.1 L MCV 99.2 H MCH 34.7 H MCHC 35.0 RDW 14.4 D Plt Count 175 MPV 8.0 D Absolute Neuts (auto) 3.5 Neutrophils % 65.3 Lymphocytes % 13.3 D Monocytes % 12.1 H Eosinophils % 8.6 H Basophils % 0.7 Nucleated RBC % 0 PTT (Actin FS) 27.0 Sodium 132 L Potassium 4.7 Chloride 95 L Carbon Dioxide 29 Anion Gap 8 BUN 24 H Creatinine 5.6 H Creat Clearance w eGFR 10.75 Random Glucose 123 H Calcium 7.8 L Total Bilirubin 0.3 AST 24 ALT 22 Alkaline Phosphatase 260 H Total Protein 6.4 Albumin 2.9 L Blood Type Antibody Screen 09/20/18 09:37 WBC RBC Hgb Hct MCV MCH MCHC RDW Plt Count MPV Absolute Neuts (auto) Neutrophils % Lymphocytes % Monocytes % Eosinophils % Basophils % Nucleated RBC % PTT (Actin FS) Sodium Potassium Chloride Carbon Dioxide Anion Gap BUN Creatinine Creat Clearance w eGFR Random Glucose Calcium Total Bilirubin AST ALT Alkaline Phosphatase Total Protein Albumin Blood Type A POSITIVE Antibody Screen Negative ASSESSMENT/PLAN: 52 year old male with a PMH significant for ESRD (on HD), mute (from surgery 2014), HTN, HLD, CVA x2 (2011, 2009) presented to the ED for right AV shunt access malfunction. Patient was admitted to have thrombectomy with vascular surgeon Dr. Jc ESRD - Right fistula access malfunction. - On HD M,W,F - He did get HD yesterday, however the graft was not working well - Followed by career manager Dr. Naranjo - Vascular surgeon Dr. Hosea clifton likely do a thrombectomy tomorrow on the right AV shunt CVA - x 2 (2009, 2011) - Residual weakness and aphasia - Aspirin 81 mg PO DAILY HTN - Lasix 40 mg PO DAILY - Labetalol HCl 200 mg PO BID HLD - Atorvastatin Ca 80 mg PO HS - LFTs WNL Seizures - Dilantin 200 mg PO BID Depression - Zoloft 50 mg PO DAILY Supplement - Ascorbic Acid [Vitamin C] 500 mg PO DAILY - Calcium Acetate 667 mg PO TID - Nephro-Masha 1 tablet PO DAILY Prophylaxis - DVT: Heparin SQ FEN - PO intake adequate - BMP in the morning - NPO Disp: Patient requires further inpatient treatment for his emergent condition. Visit type - Emergency Visit Emergency Visit: Yes ED Registration Date: 09/20/18 Care time: The patient presented to the Emergency Department on the above date and was hospitalized for further evaluation of their emergent condition. - New Patient This patient is new to me today: Yes Date on this admission: 09/21/18 - Critical Care Critical Care patient: No
[2018-09-20] MEDS ORDERED: PATIENT'S OWN MEDICATION (NON-FORMULARY) (Calcium Acetate [Calcium Acetate] 667 MG) PO SCH (22:00)
[2018-09-20] MEDS ORDERED: ATORVASTATIN CA 80 MG TABLET (FP) PO SCH (22:00)
[2018-09-20] MEDS ORDERED: LABETALOL HCL 100 MG TABLET (FP) ONE (23:02)
[2018-09-20] MEDS ORDERED: PHENYTOIN NA EXTENDED 100 MG CAPSULE (FP) ONE (23:02)
[2018-09-20] MEDS ORDERED: ONDANSETRON *ODT* 4 MG TABLET ONE (23:02)
[2018-09-20] MEDS ORDERED: HEPARIN NA (PORCINE) 5,000 UNITS/ML 1ML VIAL ONE (23:03)
[2018-09-20] MEDS ORDERED: ATORVASTATIN CA 80 MG TABLET (FP) ONE (23:03)
[2018-09-20] MEDS: PHENYTOIN 100 MG/4 ML U-D CUP PO SCH (23:20)
[2018-09-20] MEDS: ONDANSETRON *ODT* 4 MG TABLET SL SCH (23:21)
[2018-09-20] MEDS: LABETALOL HCL 200 MG TABLET (FP) PO SCH (23:21)
[2018-09-20] MEDS: HEPARIN NA (PORCINE) 5,000 UNITS/ML 1ML VIAL SQ SCH (23:21)
[2018-09-21] MEDS ORDERED: PT OWN MED DRAWER 7, Y5N ONE (06:02)
[2018-09-21] MEDS: HEPARIN NA (PORCINE) 5,000 UNITS/ML 1ML VIAL SQ SCH ×2 (06:24→13:58)
[2018-09-21] MEDS: ONDANSETRON *ODT* 4 MG TABLET SL SCH ×2 (06:24→13:58)
[2018-09-21] MEDS: CALCIUM ACETATE 667 MG CAPSULE (FP) PO SCH ×3 (08:15→16:56)
[2018-09-21 09:09] LABS: BASO % 0.8 % (0-2.0); EOS % 9.3 % (0-4.5); HEMATOCRIT 29.3 % (35.4-49); LYMPH % 18.2 % (8-40); MCH 33.9 pg (25.7-33.7); MCHC 34.2 g/dl (32.0-35.9); MEAN CELL VOLUME 99.1 fl (80-96); MEAN PLT VOLUME 7.6 fl (7.5-11.1); MONO % 11.1 % (3.8-10.2); NEUT % 60.6 % (42.8-82.8); PLATELET COUNT 176 K/MM3 (134-434); RBC 2.96 M/mm3 (4.00-5.60); RDW 14.7 % (11.9-15.9); WHITE BLOOD COUNT 5.2 K/mm3 (4.0-10.0)
[2018-09-21] MEDS ORDERED: SERTRALINE HCL 50 MG TABLET (FP) PO SCH (10:00)
[2018-09-21] MEDS ORDERED: FUROSEMIDE 40 MG TABLET (FP) PO SCH (10:00)
[2018-09-21] MEDS ORDERED: PATIENT'S OWN MEDICATION (NON-FORMULARY) (Ascorbic Acid [Vitamin C] 500 MG) PO SCH (10:00)
[2018-09-21] MEDS ORDERED: PATIENT'S OWN MEDICATION (NON-FORMULARY) (Acetaminophen [Tylenol] 650 MG) PO SCH (10:00)
[2018-09-21] MEDS ORDERED: ASCORBIC ACID 500 MG TABLET (FP) PO SCH (10:00)
[2018-09-21] MEDS ORDERED: VITAMIN B COMP W-C 1 EA TABLET PO SCH (10:00)
[2018-09-21] MEDS ORDERED: ASPIRIN 81 MG CHEWABLE TABLETS PO SCH (10:00)
[2018-09-21] MEDS: PHENYTOIN 100 MG/4 ML U-D CUP PO SCH (10:03)
[2018-09-21] MEDS: LABETALOL HCL 200 MG TABLET (FP) PO SCH (10:03)
[2018-09-21 10:36] LABS: ALBUMIN 2.9 g/dl (3.4-5.0); ALK PHOS 264 U/L (45-117); ANION GAP 11 MMOL/L (8-16); BILIRUBIN,TOTAL 0.3 mg/dL (0.2-1); BLOOD UREA NITROGEN 40 mg/dL (7-18); CALCIUM 8.4 mg/dL (8.5-10.1); CHLORIDE 94 mmol/L (98-107); CO2 27 mmol/L (21-32); GLUCOSE,RANDOM 83 mg/dL (74-106); POTASSIUM 5.2 mmol/L (3.5-5.1); SGOT/AST 26 U/L (15-37); SGPT/ALT 22 U/L (13-61); SODIUM 132 mmol/L (136-145); TOT PROT 6.4 g/dl (6.4-8.2)
[2018-09-21 10:39] LABS: CREATININE 7.6 mg/dL (0.55-1.3)
--- NOTE | 2018-09-21 12:03 | PN ---
Progress Note (short form) - Note Progress Note: non verbal no SOB does not appear to be volume overloaded Vital Signs - 24 hr 09/20/18 09/20/18 09/20/18 12:12 14:56 21:12 Temperature 98.5 F 99.3 F Pulse Rate Pulse Rate [ 77 89 79 Left Radial] Respiratory 16 16 20 Rate Blood Pressure Blood Pressure 152/82 150/75 138/71 [Left Arm] O2 Sat by Pulse 99 96 98 Oximetry (%) 09/21/18 09/21/18 09/21/18 02:21 05:56 06:00 Temperature 98.8 F 98.9 F Pulse Rate 73 76 Pulse Rate [ Left Radial] Respiratory 18 18 Rate Blood Pressure 149/63 141/68 Blood Pressure [Left Arm] O2 Sat by Pulse 97 98 Oximetry (%) 09/21/18 09/21/18 08:57 10:00 Temperature 97.9 F Pulse Rate 85 Pulse Rate [ Left Radial] Respiratory 20 Rate Blood Pressure 120/52 L Blood Pressure [Left Arm] O2 Sat by Pulse 96 Oximetry (%) Current Medications Generic Name Dose Route Start Last Admin Trade Name Freq PRN Reason Stop Dose Admin Acetaminophen 650 mg 09/20/18 18:17 Tylenol - PO DAILY PRN FEVER Ascorbic Acid 500 mg 09/21/18 10:00 09/21/18 10:04 Vitamin C - PO Not Given DAILY [facility] Aspirin 81 mg 09/21/18 10:00 09/21/18 10:03 Asa - PO Not Given DAILY [facility] Atorvastatin Calcium 80 mg 09/20/18 22:00 09/20/18 23:21 Lipitor - PO 80 mg HS TYREE Administration Calcium Acetate 667 mg 09/21/18 08:00 09/21/18 08:15 Phoslo - PO Not Given TIDCM TYREE Furosemide 40 mg 09/21/18 10:00 09/21/18 10:04 Lasix - PO Not Given DAILY [facility] Heparin Sodium (Porcine) 5,000 unit 09/20/18 22:00 09/21/18 06:24 Heparin - SQ 5,000 unit TID TYREE Administration Labetalol HCl 200 mg 09/20/18 22:00 09/21/18 10:03 Normodyne - PO 200 mg BID TYREE Administration Multivit/Ca Carb/B Cmplx/FA/Prenat 1 tablet 09/21/18 10:00 09/21/18 10:04 Nephro-Masha - PO Not Given DAILY TYREE Ondansetron HCl 4 mg 09/20/18 22:00 09/21/18 06:24 Zofran Odt - SL 4 mg TID TYREE Administration Phenytoin Sodium 200 mg 09/20/18 22:00 09/21/18 10:03 Dilantin Oral Suspension - PO 200 mg BID TYREE Administration Sertraline HCl 50 mg 09/21/18 10:00 09/21/18 10:04 Zoloft - PO Not Given DAILY TYREE Laboratory Results - last 24 hr 09/21/18 09/21/18 08:45 08:45 WBC 5.2 RBC 2.96 L Hgb 10.0 L Hct 29.3 L MCV 99.1 H MCH 33.9 H MCHC 34.2 RDW 14.7 Plt Count 176 MPV 7.6 Absolute Neuts (auto) 3.2 Neutrophils % 60.6 Lymphocytes % 18.2 D Monocytes % 11.1 H Eosinophils % 9.3 H Basophils % 0.8 Nucleated RBC % 0 Sodium 132 L Potassium 5.2 H Chloride 94 L Carbon Dioxide 27 Anion Gap 11 BUN 40 H Creatinine 7.6 H* Creat Clearance w eGFR 7.55 Random Glucose 83 Calcium 8.4 L Total Bilirubin 0.3 AST 26 ALT 22 Alkaline Phosphatase 264 H Total Protein 6.4 Albumin 2.9 L S1 S2 RRR Lungs decreased abd- soft ,NT no edema' rt arm-- AVF no thrill/bruit PLAN for declotting Vascular surgeon called Renal eval for dialysis Problem List - Problems (1) Dialysis AV fistula malfunction Code(s): T82.590A - [facility] COMPL OF SURGICALLY CREATED ARTERIOVENOUS FISTULA, INIT (2) ESRD (end stage renal disease) on dialysis Code(s): N18.6 - END STAGE RENAL DISEASE; Z99.2 - DEPENDENCE ON RENAL DIALYSIS
--- NOTE | 2018-09-21 19:03 | PN ---
Progress Note, Physician History of Present Illness: Pt seen and examined at bedside. He is NPO for possible thrombectomy. - Current Medication List Current Medications: Active Medications Acetaminophen (Tylenol -) 650 mg PO DAILY PRN PRN Reason: FEVER Ascorbic Acid (Vitamin C -) 500 mg PO DAILY [facility] Last Admin: 09/21/18 10:04 Dose: Not Given Aspirin (Asa -) 81 mg PO DAILY [facility] Last Admin: 09/21/18 10:03 Dose: Not Given Atorvastatin Calcium (Lipitor -) 80 mg PO HS [facility] Last Admin: 09/20/18 23:21 Dose: 80 mg Calcium Acetate (Phoslo -) 667 mg PO TIDCM [facility] Last Admin: 09/21/18 16:56 Dose: Not Given Furosemide (Lasix -) 40 mg PO DAILY [facility] Last Admin: 09/21/18 10:04 Dose: Not Given Heparin Sodium (Porcine) (Heparin -) 5,000 unit SQ TID [facility] Last Admin: 09/21/18 13:58 Dose: Not Given Labetalol HCl (Normodyne -) 200 mg PO BID [facility] Last Admin: 09/21/18 10:03 Dose: 200 mg Multivit/Ca Carb/B Cmplx/FA/Prenat (Nephro-Masha -) 1 tablet PO DAILY [facility] Last Admin: 09/21/18 10:04 Dose: Not Given Ondansetron HCl (Zofran Odt -) 4 mg SL TID [facility] Last Admin: 09/21/18 13:58 Dose: Not Given Phenytoin Sodium (Dilantin Oral Suspension -) 200 mg PO BID [facility] Last Admin: 09/21/18 10:03 Dose: 200 mg Sertraline HCl (Zoloft -) 50 mg PO DAILY [facility] Last Admin: 09/21/18 10:04 Dose: Not Given - Objective Vital Signs: Vital Signs Temperature 99.0 F 09/21/18 15:10 Pulse Rate 82 09/21/18 15:10 Respiratory Rate 20 09/21/18 15:10 Blood Pressure 149/74 09/21/18 15:10 O2 Sat by Pulse Oximetry (%) 96 09/21/18 10:00 Constitutional: Yes: No Distress, Calm Eyes: Yes: Conjunctiva Clear Cardiovascular: Yes: S1, S2 Respiratory: Yes: CTA Bilaterally Gastrointestinal: Yes: Soft Genitourinary: Yes: WNL Musculoskeletal: Yes: Muscle Weakness Edema: No Neurological: Yes: Pre-Existing Deficit Labs: CBC, BMP 09/21/18 08:45 09/21/18 08:45 Problem List - Problems (1) Dialysis AV fistula malfunction Code(s): T82.590A - [facility] COMPL OF SURGICALLY CREATED ARTERIOVENOUS FISTULA, INIT (2) ESRD (end stage renal disease) on dialysis Code(s): N18.6 - END STAGE RENAL DISEASE; Z99.2 - DEPENDENCE ON RENAL DIALYSIS Assessment/Plan Current Medications Generic Name Dose Route Start Last Admin Trade Name Freq PRN Reason Stop Dose Admin Acetaminophen 650 mg 09/20/18 18:17 Tylenol - PO DAILY PRN FEVER Ascorbic Acid 500 mg 09/21/18 10:00 09/21/18 10:04 Vitamin C - PO Not Given DAILY [facility] Aspirin 81 mg 09/21/18 10:00 09/21/18 10:03 Asa - PO Not Given DAILY [facility] Atorvastatin Calcium 80 mg 09/20/18 22:00 09/20/18 23:21 Lipitor - PO 80 mg HS [facility] Administration Calcium Acetate 667 mg 09/21/18 08:00 09/21/18 16:56 Phoslo - PO Not Given TIDCM TYREE Furosemide 40 mg 09/21/18 10:00 09/21/18 10:04 Lasix - PO Not Given DAILY [facility] Heparin Sodium (Porcine) 5,000 unit 09/20/18 22:00 09/21/18 13:58 Heparin - SQ Not Given TID [facility] Labetalol HCl 200 mg 09/20/18 22:00 09/21/18 10:03 Normodyne - PO 200 mg BID [facility] Administration Multivit/Ca Carb/B Cmplx/FA/Prenat 1 tablet 09/21/18 10:00 09/21/18 10:04 Nephro-Masha - PO Not Given DAILY [facility] Ondansetron HCl 4 mg 09/20/18 22:00 09/21/18 13:58 Zofran Odt - SL Not Given TID [facility] Phenytoin Sodium 200 mg 09/20/18 22:00 09/21/18 10:03 Dilantin Oral Suspension - PO 200 mg BID [facility] Administration Sertraline HCl 50 mg 09/21/18 10:00 09/21/18 10:04 Zoloft - PO Not Given DAILY TYREE Impression 1. ESRD 2. chol 3. hx CVA 4. HTN 5. access malfunction 6. epilepsy Plan - pending vascular for access repair - pt is still NPO - discussed with his mother - pt will likely get HD tomorrow - cont with erlin Naranjo
[2018-09-21] MEDS ORDERED: HEPARIN NA (PORCINE) 5,000 UNITS/ML 1ML VIAL ONE ×2 (20:47→21:00)
[2018-09-21] MEDS ORDERED: ONDANSETRON 4 MG/2 ML VIAL IVPUSH PRN ×2 (20:55→22:35)
[2018-09-21] MEDS ORDERED: MIDAZOLAM HCL 2 MG/2 ML SINGLE DOSE VIAL ONE ×2 (21:02)
[2018-09-21] MEDS ORDERED: SODIUM CHLORIDE 250 ML IV PRN ×2 (21:05→22:35)
[2018-09-21] MEDS ORDERED: FUROSEMIDE 40 MG/4 ML INJECTABLE VIAL IVPUSH ONE ×2 (21:07→22:35)
[2018-09-21] MEDS ORDERED: SODIUM POLYSTYRENE SULFONATE 15 GM/60 ML BOTTLE PO ONE ×2 (21:09→22:35)
[2018-09-21] MEDS ORDERED: ceFAZolin SODIUM 1 GM VIAL IVPB ONE (21:16)
[2018-09-21] MEDS ORDERED: ceFAZolin SODIUM 1 GM VIAL ONE (21:19)
[2018-09-21] MEDS ORDERED: LIDOCAINE HCL 1% PRESERVATIVE FREE - 30ML VIAL INF ONE (21:20)
[2018-09-21] MEDS ORDERED: ALTEPLASE 2 MG VIAL CVP ONE (21:43)
--- NOTE | 2018-09-21 22:04 | OP ---
Operative Note - Note: Operative Date: 09/21/18 Pre-Operative Diagnosis: ESRD clotted R AVG Operation: right arm AVG declot, graft angioplasty, central angioplasty Post-Operative Diagnosis: Same as Pre-op Surgeon: Talha Bansal Specimens Removed: none Operative Report Dictated: Yes
[2018-09-21] MEDS ORDERED: ACETAMINOPHEN 325 MG TABLET (FP) PO PRN (22:35)
[2018-09-22] MEDS: HEPARIN NA (PORCINE) 5,000 UNITS/ML 1ML VIAL SQ SCH ×3 (06:06→22:19)
[2018-09-22] MEDS: ONDANSETRON *ODT* 4 MG TABLET SL SCH ×3 (06:06→22:20)
[2018-09-22] MEDS: CALCIUM ACETATE 667 MG CAPSULE (FP) PO SCH ×3 (07:52→17:36)
--- NOTE | 2018-09-22 09:39 | OP ---
DATE OF OPERATION: 09/21/2018 PREOPERATIVE DIAGNOSIS: End-stage renal disease with clotted right arm arteriovenous graft. POSTOPERATIVE DIAGNOSIS: End-stage renal disease with clotted right arm arteriovenous graft. PROCEDURE PERFORMED: Right arm percutaneous mechanical thrombectomy of brachial artery to axillary vein graft and central venous angioplasty and graft angioplasty. SURGEON: Talha Bansal MD TECHNOLOGY SALES SPECIALIST: None ESTIMATED BLOOD LOSS: 50 mL. SPECIMENS: None. DESCRIPTION OF PROCEDURE: Patient was brought to the operating room. The patients right arm was prepped and draped in the usual sterile fashion. Sedation was administered by Anesthesia. Patients right arm AV graft was accessed using a micropuncture set. A 7-[place] sheath was inserted. An S-wire was passed into the inferior vena cava under fluoroscopic guidance. The graft was laced with 6 mg of tPA. This was laced into the central veins, which also appeared to be occluded and was allowed to dwell for 10 minutes. The percutaneous thrombectomy was then done with the AngioJet catheter for 100 seconds. The graft was then accessed in a retrograde fashion. A 5-[place] sheath was inserted, and the arterial plug was removed. Selective angiography of the brachial artery demonstrated good flow to the bifurcation. The graft was then ballooned throughout the course of an 8-mm balloon and central veins were ballooned with a 10-mm balloon. Repeat fistulogram demonstrated full resolution of previous stenosis with brisk flow centrally. All wires and catheters were then removed. Access veins were closed using 3-0 Prolene. Heparin, 3000 units, was administered after the beginning of the case as well. Kishor [id number]
[2018-09-22 09:57] LABS: HEMATOCRIT 28.2 % (35.4-49); MCH 35.3 pg (25.7-33.7); MCHC 35.4 g/dl (32.0-35.9); MEAN CELL VOLUME 99.6 fl (80-96); MEAN PLT VOLUME 8.1 fl (7.5-11.1); PLATELET COUNT 159 K/MM3 (134-434); RBC 2.83 M/mm3 (4.00-5.60); RDW 14.7 % (11.9-15.9); WHITE BLOOD COUNT 6.7 K/mm3 (4.0-10.0)
[2018-09-22] MEDS: LABETALOL HCL 200 MG TABLET (FP) PO SCH ×2 (10:00→22:20)
--- NOTE | 2018-09-22 10:04 | PN ---
Progress Note (short form) - Note Progress Note: POD #1 - s/p angio/thrombectomy of right a-v fistula under MAC. VSS. Currently undergoing hemodialysis. No apparent anesthetic complications noted. Continue current care.
[2018-09-22] MEDS: HEPARIN NA (PORCINE) 5,000 UNITS/ML 1ML VIAL IVPUSH ONE (10:20)
[2018-09-22 10:42] LABS: ANION GAP 12 MMOL/L (8-16); BLOOD UREA NITROGEN 59 mg/dL (7-18); CALCIUM 7.8 mg/dL (8.5-10.1); CHLORIDE 95 mmol/L (98-107); CO2 26 mmol/L (21-32); GLUCOSE,RANDOM 173 mg/dL (74-106); POTASSIUM 5.3 mmol/L (3.5-5.1); SODIUM 133 mmol/L (136-145)
[2018-09-22 10:57] LABS: CREATININE 9.2 mg/dL (0.55-1.3)
--- NOTE | 2018-09-22 12:43 | DS ---
Physical Examination Vital Signs: Vital Signs Temperature 98.0 F 09/22/18 08:00 Pulse Rate 92 H 09/22/18 10:58 Respiratory Rate 18 09/22/18 10:58 Blood Pressure 127/60 09/22/18 10:58 O2 Sat by Pulse Oximetry (%) 100 09/21/18 22:45 Findings/Remarks: pt seen/ examined in dialysis just finished dialysis - no issues feels ok Constitutional: Yes: No Distress, Calm Cardiovascular: Yes: Regular Rate and Rhythm Respiratory: Yes: Diminished Gastrointestinal: Yes: Soft Neurological: Yes: Other (awake) Labs: CBC, BMP 09/22/18 08:30 09/22/18 08:30 Discharge Summary Reason For Visit: MALFUNCTION MOF ANTERIOVENUS DIAL FISTUL Current Active Problems Dialysis AV fistula malfunction (Acute) Hospital Course: S/p thrombectomy working well stable meds reconcilled d/c to [facility] today discussed with nursing staff Condition: Stable - Instructions Referrals: Kp Riley MD [Primary Care Provider] - Disposition: LONG TERM FACILITY - Home Medications Comprehensive Discharge Medication List: Ambulatory Orders Acetaminophen [Tylenol] 650 mg PO DAILY 09/20/18 Ascorbic Acid [Vitamin C] 500 mg PO DAILY 09/20/18 Aspirin 81 mg PO DAILY 09/20/18 Atorvastatin Ca [Lipitor] 80 mg PO HS 09/20/18 Calcium Acetate 667 mg PO TID 09/20/18 Furosemide [Lasix] 40 mg PO DAILY 09/20/18 Labetalol HCl [Normodyne -] 200 mg PO BID 09/20/18 Ondansetron [Zofran Odt -] 4 mg SL TID 09/20/18 Phenytoin Oral Suspension [Dilantin Oral Suspension 100 MG/4 ML] 200 mg PO BID 09/20/18 Sertraline HCl [Zoloft -] 50 mg PO DAILY 09/20/18 Vitamin B Comp W-C [Nephro-Masha -] 1 tablet PO DAILY 09/20/18 Heparin - 5,000 unit SQ TID vial 09/22/18
--- NOTE | 2018-09-22 14:03 | PN ---
Progress Note (short form) - Note Progress Note: covering dr reeves Problems 1. ESRD 2. chol 3. hx CVA 4. HTN 5. access malfunction 6. epilepsy Current Medications Acetaminophen (Tylenol -) 650 mg PO DAILY PRN PRN Reason: FEVER Ascorbic Acid (Vitamin C -) 500 mg PO DAILY [facility] Aspirin (Asa -) 81 mg PO DAILY [facility] Atorvastatin Calcium (Lipitor -) 80 mg PO HS [facility] Calcium Acetate (Phoslo -) 667 mg PO TIDCM [facility] Last Admin: 09/22/18 07:52 Dose: 667 mg Furosemide (Lasix -) 40 mg PO DAILY [facility] Heparin Sodium (Porcine) (Heparin -) 5,000 unit SQ TID [facility] Last Admin: 09/22/18 06:06 Dose: 5,000 unit Heparin Sodium (Porcine) (Heparin -) 1,000 unit IVPUSH ONCE ONE Stop: 09/22/18 21:06 Last Admin: 09/22/18 10:20 Dose: 1,000 unit Sodium Chloride (Normal Saline -) 250 mls @ 3,000 mls/hr IV PRN PRN PRN Reason: Hypotension during Dialysis Stop: 09/22/18 21:05 Labetalol HCl (Normodyne -) 200 mg PO BID [facility] Multivit/Ca Carb/B Cmplx/FA/Prenat (Nephro-Masha -) 1 tablet PO DAILY [facility] Ondansetron HCl (Zofran Odt -) 4 mg SL TID [facility] Last Admin: 09/22/18 06:06 Dose: 4 mg Phenytoin Sodium (Dilantin Oral Suspension -) 200 mg PO BID [facility] Sertraline HCl (Zoloft -) 50 mg PO DAILY [facility] Last Vital Signs Temp Pulse Resp BP Pulse Ox 98.0 F 84 18 116/58 L 100 09/22/18 08:00 09/22/18 12:43 09/22/18 12:43 09/22/18 12:43 09/21/18 22:45 CBC, BMP 09/22/18 08:30 09/22/18 08:30 s/p avf revision s/p uneventful HD Plan next hd on mon if still inpatient
[2018-09-22] MEDS ORDERED: PT OWN MED DRAWER 7, Y5N ONE ×2 (14:08→21:57)
[2018-09-22] MEDS: PHENYTOIN 100 MG/4 ML U-D CUP PO SCH ×2 (14:12→22:19)
[2018-09-22] MEDS: VITAMIN B COMP W-C 1 EA TABLET PO SCH (14:13)
[2018-09-22] MEDS: ASPIRIN 81 MG CHEWABLE TABLETS PO SCH (14:13)
[2018-09-22] MEDS: SERTRALINE HCL 50 MG TABLET (FP) PO SCH (14:13)
[2018-09-22] MEDS: ASCORBIC ACID 500 MG TABLET (FP) PO SCH (14:13)
[2018-09-22] MEDS: FUROSEMIDE 40 MG TABLET (FP) PO SCH (14:13)
[2018-09-22 16:08] VITALS: BMI 18.3
[2018-09-22] MEDS ORDERED: HEPARIN NA (PORCINE) 5,000 UNITS/ML 1ML VIAL IVPUSH ONE (21:05)
[2018-09-22] MEDS: ATORVASTATIN CA 80 MG TABLET (FP) PO SCH (22:19)
[2018-09-23] MEDS: HEPARIN NA (PORCINE) 5,000 UNITS/ML 1ML VIAL SQ SCH ×3 (06:10→22:10)
[2018-09-23] MEDS: ONDANSETRON *ODT* 4 MG TABLET SL SCH ×3 (06:10→22:10)
[2018-09-23] MEDS: HEPARIN NA (PORCINE) 5,000 UNITS/ML 1ML VIAL IVPUSH ONE (07:56)
[2018-09-23] MEDS: CALCIUM ACETATE 667 MG CAPSULE (FP) PO SCH ×3 (08:06→17:26)
[2018-09-23] MEDS ORDERED: PT OWN MED DRAWER 7, Y5N ONE ×3 (10:20→22:07)
[2018-09-23] MEDS: ASPIRIN 81 MG CHEWABLE TABLETS PO SCH (10:26)
[2018-09-23] MEDS: FUROSEMIDE 40 MG TABLET (FP) PO SCH (10:26)
[2018-09-23] MEDS: ASCORBIC ACID 500 MG TABLET (FP) PO SCH (10:26)
[2018-09-23] MEDS: VITAMIN B COMP W-C 1 EA TABLET PO SCH (10:26)
[2018-09-23] MEDS: PHENYTOIN 100 MG/4 ML U-D CUP PO SCH ×2 (10:26→22:10)
[2018-09-23] MEDS: SERTRALINE HCL 50 MG TABLET (FP) PO SCH (10:26)
[2018-09-23] MEDS: LABETALOL HCL 200 MG TABLET (FP) PO SCH ×2 (10:27→22:10)
--- NOTE | 2018-09-23 12:35 | PN ---
Progress Note (short form) - Note Progress Note: comfortable no new issues awaiting authorization from insurance for d/c back to longterm- discussed with case maker/ nursing staff Vital Signs Temp 98.9 F 09/23/18 10:00 Pulse 79 09/23/18 10:00 Resp 20 09/23/18 10:00 BP 131/57 L 09/23/18 10:00 Pulse Ox 96 09/23/18 10:00 Intake & Output 09/22/18 09/23/18 09/23/18 23:59 11:59 23:59 Intake Total 650 Balance 650 Weight 121 lb 118 lb Intake: Oral 650 Other: Voiding Method Diaper Diaper # Unmeasured Voids Void 0 0 Bowel Movement No No Height 5 ft 8 in Body Mass Index (BMI) 18.3 Weight Measurement Method [facility] Active Medications Acetaminophen (Tylenol -) 650 mg PO DAILY PRN PRN Reason: FEVER Ascorbic Acid (Vitamin C -) 500 mg PO DAILY [facility] Last Admin: 09/23/18 10:26 Dose: 500 mg Aspirin (Asa -) 81 mg PO DAILY [facility] Last Admin: 09/23/18 10:26 Dose: 81 mg Atorvastatin Calcium (Lipitor -) 80 mg PO HS [facility] Last Admin: 09/22/18 22:19 Dose: 80 mg Calcium Acetate (Phoslo -) 667 mg PO TIDCM [facility] Last Admin: 09/23/18 12:04 Dose: 667 mg Furosemide (Lasix -) 40 mg PO DAILY [facility] Last Admin: 09/23/18 10:26 Dose: 40 mg Heparin Sodium (Porcine) (Heparin -) 5,000 unit SQ TID [facility] Last Admin: 09/23/18 06:10 Dose: 5,000 unit Labetalol HCl (Normodyne -) 200 mg PO BID [facility] Last Admin: 09/23/18 10:27 Dose: 200 mg Multivit/Ca Carb/B Cmplx/FA/Prenat (Nephro-Masha -) 1 tablet PO DAILY [facility] Last Admin: 09/23/18 10:26 Dose: 1 tablet Ondansetron HCl (Zofran Odt -) 4 mg SL TID [facility] Last Admin: 09/23/18 06:10 Dose: Not Given Phenytoin Sodium (Dilantin Oral Suspension -) 200 mg PO BID [facility] Last Admin: 09/23/18 10:26 Dose: 200 mg Sertraline HCl (Zoloft -) 50 mg PO DAILY [facility] Last Admin: 09/23/18 10:26 Dose: 50 mg CBC, BMP 09/22/18 08:30 09/22/18 08:30 Physical Exam Constitutional: Yes: No Distress, Calm Cardiovascular: Yes: Regular Rate and Rhythm Respiratory: Yes: Diminished Gastrointestinal: Yes: Soft Neurological: Yes: Other (awake) A/P Stable continue present care stable for d/c
--- NOTE | 2018-09-23 20:48 | PN ---
Progress Note (short form) - Note Progress Note: covering dr reeves Problems 1. ESRD 2. chol 3. hx CVA 4. HTN 5. access malfunction 6. epilepsy Current Medications Acetaminophen (Tylenol -) 650 mg PO DAILY PRN PRN Reason: FEVER Ascorbic Acid (Vitamin C -) 500 mg PO DAILY [facility] Last Admin: 09/23/18 10:26 Dose: 500 mg Aspirin (Asa -) 81 mg PO DAILY [facility] Last Admin: 09/23/18 10:26 Dose: 81 mg Atorvastatin Calcium (Lipitor -) 80 mg PO HS [facility] Last Admin: 09/22/18 22:19 Dose: 80 mg Calcium Acetate (Phoslo -) 667 mg PO TIDCM [facility] Last Admin: 09/23/18 17:26 Dose: 667 mg Furosemide (Lasix -) 40 mg PO DAILY [facility] Last Admin: 09/23/18 10:26 Dose: 40 mg Heparin Sodium (Porcine) (Heparin -) 5,000 unit SQ TID [facility] Last Admin: 09/23/18 14:43 Dose: 5,000 unit Labetalol HCl (Normodyne -) 200 mg PO BID [facility] Last Admin: 09/23/18 10:27 Dose: 200 mg Multivit/Ca Carb/B Cmplx/FA/Prenat (Nephro-Masha -) 1 tablet PO DAILY [facility] Last Admin: 09/23/18 10:26 Dose: 1 tablet Ondansetron HCl (Zofran Odt -) 4 mg SL TID [facility] Last Admin: 09/23/18 14:42 Dose: 4 mg Phenytoin Sodium (Dilantin Oral Suspension -) 200 mg PO BID [facility] Last Admin: 09/23/18 10:26 Dose: 200 mg Sertraline HCl (Zoloft -) 50 mg PO DAILY [facility] Last Admin: 09/23/18 10:26 Dose: 50 mg Last Vital Signs Temp Pulse Resp BP Pulse Ox 98.5 F 81 20 109/53 L 96 09/23/18 15:31 09/23/18 15:31 09/23/18 15:31 09/23/18 15:31 09/23/18 10:00 in nad lungs clear heart reg abd soft ext no edema CBC, BMP 09/22/18 08:30 09/22/18 08:30 s/p avf revision s/p uneventful HD Plan next hd on mon
[2018-09-23] MEDS ORDERED: SODIUM CHLORIDE 250 ML IV PRN (20:50)
[2018-09-23] MEDS: ATORVASTATIN CA 80 MG TABLET (FP) PO SCH (22:10)
[2018-09-24 03:20] VITALS: TEMP 98.3
[2018-09-24] MEDS: HEPARIN NA (PORCINE) 5,000 UNITS/ML 1ML VIAL SQ SCH ×2 (06:11→14:20)
[2018-09-24] MEDS: ONDANSETRON *ODT* 4 MG TABLET SL SCH ×2 (06:11→14:18)
[2018-09-24] MEDS: CALCIUM ACETATE 667 MG CAPSULE (FP) PO SCH ×2 (08:46→14:19)
[2018-09-24 09:10] LABS: HEMATOCRIT 30.2 % (35.4-49); HEMOGLOBIN 9.6 GM/dL (11.7-16.9); MCH 32.8 pg (25.7-33.7); MCHC 31.9 g/dl (32.0-35.9); MEAN CELL VOLUME 102.7 fl (80-96); MEAN PLT VOLUME 7.8 fl (7.5-11.1); PLATELET COUNT 128 K/MM3 (134-434); RBC 2.94 M/mm3 (4.00-5.60); RDW 14.7 % (11.9-15.9); WHITE BLOOD COUNT 4.8 K/mm3 (4.0-10.0)
--- NOTE | 2018-09-24 11:51 | PN ---
Progress Note (short form) - Note Progress Note: pt seen in dialysis comfortable no new issues fistula working well Vital Signs Temp 98.3 F 09/24/18 06:00 Pulse 68 09/24/18 10:15 Resp 18 09/24/18 10:15 BP 112/52 L 09/24/18 10:15 Pulse Ox 96 09/23/18 21:00 Intake & Output 09/23/18 09/23/18 09/24/18 11:59 23:59 11:59 Intake Total 440 Balance 440 Weight 118 lb 117 lb 4 oz Intake: Oral 440 Other: Voiding Method Diaper Diaper Diaper # Unmeasured Voids Void 0 0 1 Bowel Movement No Yes # Bowel Movements 1 Weight Measurement Method Built in Bedscale Built in Bedscale Active Medications Acetaminophen (Tylenol -) 650 mg PO DAILY PRN PRN Reason: FEVER Ascorbic Acid (Vitamin C -) 500 mg PO DAILY [facility] Last Admin: 09/23/18 10:26 Dose: 500 mg Aspirin (Asa -) 81 mg PO DAILY [facility] Last Admin: 09/23/18 10:26 Dose: 81 mg Atorvastatin Calcium (Lipitor -) 80 mg PO HS [facility] Last Admin: 09/23/18 22:10 Dose: 80 mg Calcium Acetate (Phoslo -) 667 mg PO TIDCM [facility] Last Admin: 09/24/18 08:46 Dose: 667 mg Furosemide (Lasix -) 40 mg PO DAILY [facility] Last Admin: 09/23/18 10:26 Dose: 40 mg Heparin Sodium (Porcine) (Heparin -) 5,000 unit SQ TID [facility] Last Admin: 09/24/18 06:11 Dose: 5,000 unit Sodium Chloride (Normal Saline -) 250 mls @ 3,000 mls/hr IV PRN PRN PRN Reason: Hypotension during Dialysis Stop: 09/24/18 20:52 Labetalol HCl (Normodyne -) 200 mg PO BID [facility] Last Admin: 09/23/18 22:10 Dose: 200 mg Multivit/Ca Carb/B Cmplx/FA/Prenat (Nephro-Masha -) 1 tablet PO DAILY [facility] Last Admin: 09/23/18 10:26 Dose: 1 tablet Ondansetron HCl (Zofran Odt -) 4 mg SL TID [facility] Last Admin: 09/24/18 06:11 Dose: 4 mg Phenytoin Sodium (Dilantin Oral Suspension -) 200 mg PO BID [facility] Last Admin: 09/23/18 22:10 Dose: 200 mg Sertraline HCl (Zoloft -) 50 mg PO DAILY [facility] Last Admin: 09/23/18 10:26 Dose: 50 mg CBC, BMP 09/24/18 08:30 Physical Exam Constitutional: Yes: No Distress, Calm Cardiovascular: Yes: Regular Rate and Rhythm Respiratory: Yes: Diminished Gastrointestinal: Yes: Soft Neurological: Yes: Other (awake) A/P Stable continue present care stable for d/c-- anticipate today. Problem List - Problems (1) Dialysis AV fistula malfunction Code(s): T82.590A - [facility] COMPL OF SURGICALLY CREATED ARTERIOVENOUS FISTULA, INIT (2) CVA, old, aphasia Code(s): I69.320 - APHASIA FOLLOWING CEREBRAL INFARCTION (3) ESRD (end stage renal disease) on dialysis Code(s): N18.6 - END STAGE RENAL DISEASE; Z99.2 - DEPENDENCE ON RENAL DIALYSIS
[2018-09-24 12:59] LABS: ALK PHOS 248 U/L (45-117); ANION GAP 9 MMOL/L (8-16); BILIRUBIN,TOTAL 0.3 mg/dL (0.2-1); BLOOD UREA NITROGEN 48 mg/dL (7-18); CALCIUM 8.1 mg/dL (8.5-10.1); CHLORIDE 102 mmol/L (98-107); CO2 30 mmol/L (21-32); GLUCOSE,RANDOM 158 mg/dL (74-106); POTASSIUM 4.7 mmol/L (3.5-5.1); SGOT/AST 32 U/L (15-37); SGPT/ALT 11 U/L (13-61); SODIUM 140 mmol/L (136-145); TOT PROT 6.5 g/dl (6.4-8.2)
[2018-09-24 13:18] LABS: CREATININE 9.1 mg/dL (0.55-1.3)
[2018-09-24] MEDS ORDERED: PT OWN MED DRAWER 7, Y5N ONE (14:04)
[2018-09-24] MEDS: VITAMIN B COMP W-C 1 EA TABLET PO SCH (14:18)
[2018-09-24] MEDS: ASPIRIN 81 MG CHEWABLE TABLETS PO SCH (14:18)
[2018-09-24] MEDS: FUROSEMIDE 40 MG TABLET (FP) PO SCH (14:19)
[2018-09-24] MEDS: ASCORBIC ACID 500 MG TABLET (FP) PO SCH (14:19)
[2018-09-24] MEDS: SERTRALINE HCL 50 MG TABLET (FP) PO SCH (14:19)
[2018-09-24] MEDS: PHENYTOIN 100 MG/4 ML U-D CUP PO SCH (14:20)
[2018-09-24] MEDS: LABETALOL HCL 200 MG TABLET (FP) PO SCH (14:31)
--- NOTE | 2018-09-24 14:36 | PN ---
Progress Note, Physician History of Present Illness: Pt seen and examined at bedside. He tolerated HD. Care discussed with his family. - Current Medication List Current Medications: Active Medications Acetaminophen (Tylenol -) 650 mg PO DAILY PRN PRN Reason: FEVER Ascorbic Acid (Vitamin C -) 500 mg PO DAILY [facility] Last Admin: 09/24/18 14:19 Dose: 500 mg Aspirin (Asa -) 81 mg PO DAILY [facility] Last Admin: 09/24/18 14:18 Dose: 81 mg Atorvastatin Calcium (Lipitor -) 80 mg PO HS [facility] Last Admin: 09/23/18 22:10 Dose: 80 mg Calcium Acetate (Phoslo -) 667 mg PO TIDCM [facility] Last Admin: 09/24/18 14:19 Dose: 667 mg Furosemide (Lasix -) 40 mg PO DAILY [facility] Last Admin: 09/24/18 14:19 Dose: 40 mg Heparin Sodium (Porcine) (Heparin -) 5,000 unit SQ TID [facility] Last Admin: 09/24/18 14:20 Dose: 5,000 unit Sodium Chloride (Normal Saline -) 250 mls @ 3,000 mls/hr IV PRN PRN PRN Reason: Hypotension during Dialysis Stop: 09/24/18 20:52 Labetalol HCl (Normodyne -) 200 mg PO BID [facility] Last Admin: 09/24/18 14:31 Dose: 200 mg Multivit/Ca Carb/B Cmplx/FA/Prenat (Nephro-Masha -) 1 tablet PO DAILY [facility] Last Admin: 09/24/18 14:18 Dose: 1 tablet Ondansetron HCl (Zofran Odt -) 4 mg SL TID [facility] Last Admin: 09/24/18 14:18 Dose: 4 mg Phenytoin Sodium (Dilantin Oral Suspension -) 200 mg PO BID [facility] Last Admin: 09/24/18 14:20 Dose: 200 mg Sertraline HCl (Zoloft -) 50 mg PO DAILY [facility] Last Admin: 09/24/18 14:19 Dose: 50 mg - Objective Vital Signs: Vital Signs Temperature 98.3 F 09/24/18 06:00 Pulse Rate 72 09/24/18 13:26 Respiratory Rate 18 09/24/18 13:26 Blood Pressure 123/61 09/24/18 13:26 O2 Sat by Pulse Oximetry (%) 96 12/23/18 21:00 Constitutional: Yes: Calm Eyes: Yes: Conjunctiva Clear Cardiovascular: Yes: S1, S2 Respiratory: Yes: CTA Bilaterally Gastrointestinal: Yes: Soft Genitourinary: Yes: Incontinence Musculoskeletal: Yes: Muscle Weakness Edema: No Neurological: Yes: Pre-Existing Deficit Labs: CBC, BMP 09/24/18 08:30 09/24/18 08:30 Problem List - Problems (1) Dialysis AV fistula malfunction Code(s): T82.590A - [facility] COMPL OF SURGICALLY CREATED ARTERIOVENOUS FISTULA, INIT (2) ESRD (end stage renal disease) on dialysis Code(s): N18.6 - END STAGE RENAL DISEASE; Z99.2 - DEPENDENCE ON RENAL DIALYSIS Assessment/Plan Current Medications Generic Name Dose Route Start Last Admin Trade Name Freq PRN Reason Stop Dose Admin Acetaminophen 650 mg 09/21/18 22:35 Tylenol - PO DAILY PRN FEVER Ascorbic Acid 500 mg 09/22/18 10:00 09/24/18 14:19 Vitamin C - PO 500 mg DAILY [facility] Administration Aspirin 81 mg 09/22/18 10:00 09/24/18 14:18 Asa - PO 81 mg DAILY [facility] Administration Atorvastatin Calcium 80 mg 09/22/18 22:00 09/23/18 22:10 Lipitor - PO 80 mg HS [facility] Administration Calcium Acetate 667 mg 09/22/18 08:00 09/24/18 14:19 Phoslo - PO 667 mg TIDCM [facility] Administration Furosemide 40 mg 09/22/18 10:00 09/24/18 14:19 Lasix - PO 40 mg DAILY [facility] Administration Heparin Sodium (Porcine) 5,000 unit 09/22/18 06:00 09/24/18 14:20 Heparin - SQ 5,000 unit TID [facility] Administration Sodium Chloride 250 mls @ 3,000 mls/hr 09/23/18 20:50 Normal Saline - IV 09/24/18 20:52 PRN PRN Hypotension during Dialysis Labetalol HCl 200 mg 09/22/18 10:00 09/24/18 14:31 Normodyne - PO 200 mg BID [facility] Administration Multivit/Ca Carb/B Cmplx/FA/Prenat 1 tablet 09/22/18 10:00 09/24/18 14:18 Nephro-Masha - PO 1 tablet DAILY [facility] Administration Ondansetron HCl 4 mg 09/22/18 06:00 09/24/18 14:18 Zofran Odt - SL 4 mg TID [facility] Administration Phenytoin Sodium 200 mg 09/22/18 10:00 09/24/18 14:20 Dilantin Oral Suspension - PO 200 mg BID [facility] Administration Sertraline HCl 50 mg 09/22/18 10:00 09/24/18 14:19 Zoloft - PO 50 mg DAILY [facility] Administration Impression 1. ESRD 2. chol 3. hx CVA 4. HTN 5. access malfunction 6. epilepsy Plan - HD today - pt has HD scheduled as outpt - care discussed with his mother - vascular follow up for fistula maintenance after discharge - will follow Dr Naranjo
[2018-09-24 17:32] VITALS: BP 98/50; PULSE 75
[2018-09-26 14:15] LABS: HBSAG SCREEN Negative (Negative); HEP A AB, IGM Negative (Negative); HEP B CORE AB, TOT Positive (Negative)
== END 2018-09-24 17:32 | DRG 173 ==
LOC: JER 08:12 → JERBED 18:35 → J6S 09-21 01:48
PROVIDERS: ATTEND Internal Medicine
PROC: 05C73ZZ Extirpation of Matter from Right Axillary Vein, Percutaneous Approach (ICD-10-PCS; 2018-09-21)
PROC: 03C73ZZ Extirpation of Matter from Right Brachial Artery, Percutaneous Approach (ICD-10-PCS; principal; 2018-09-21 20:30)
PROC: 5A1D70Z Performance of Urinary Filtration, Intermittent, Less than 6 Hours Per Day (ICD-10-PCS; 2018-09-24)
DX: T82.590A Other mechanical complication of surgically created arteriovenous fistula, initial encounter (principal); E78.5 Hyperlipidemia, unspecified; G40.909 Epilepsy, unspecified, not intractable, without status epilepticus; G81.90 Hemiplegia, unspecified affecting unspecified side; N18.6 End stage renal disease; Y83.9 Surgical procedure, unspecified as the cause of abnormal reaction of the patient, or of later complication, without mention of misadventure at the time of the procedure; I69.320 Aphasia following cerebral infarction; Z99.2 Dependence on renal dialysis; I12.0 Hypertensive chronic kidney disease with stage 5 chronic kidney disease or end stage renal disease; E11.22 Type 2 diabetes mellitus with diabetic chronic kidney disease
CPT/HCPCS: 36415; 71045-TC-FY; 76000-TC-FY; 80048; 80053; 85025; 85027; 85730; 86704; 86706; 86708; 86803; 86850; 86900; 86901; 87340; 93005; 93010; 94760; 99285-25; J1644; J2997; Q0162

== ENCOUNTER 2019-01-17 11:43 | Emergency (ER) | payer OTHER ==
--- NOTE | 2019-01-17 12:08 | PDOC ---
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 Of note he is also being treated for pneumonia at [facility] with Augmentin and the NH as well as his sister note improvement in his symptoms as well. 01/17/19 12:09 Past History - Past Medical History Allergies/Adverse Reactions: Allergies Allergy/AdvReac Type Severity Reaction Status Date / Time No Known Allergies Allergy Verified 01/17/19 12:22 Home Medications: Ambulatory Orders Acetaminophen [Tylenol] 650 mg PO DAILY 09/20/18 Ascorbic Acid [Vitamin C] 500 mg PO DAILY 09/20/18 Aspirin 81 mg PO DAILY 09/20/18 Atorvastatin Ca [Lipitor] 80 mg PO HS 09/20/18 Calcium Acetate 667 mg PO TID 09/20/18 Furosemide [Lasix] 40 mg PO DAILY 09/20/18 Labetalol HCl [Normodyne -] 200 mg PO BID 09/20/18 Ondansetron [Zofran Odt -] 4 mg SL TID 09/20/18 Phenytoin Oral Suspension [Dilantin Oral Suspension 100 MG/4 ML] 200 mg PO BID 09/20/18 Sertraline HCl [Zoloft -] 50 mg PO DAILY 09/20/18 Vitamin B Comp W-C [Nephro-Masha -] 1 tablet PO DAILY 09/20/18 Heparin - 5,000 unit SQ TID vial 09/22/18 Anemia: No CVA: Yes (X 2 WITH RESIDUAL WEAKNESS AND APHASIA.) COPD: No Diabetes: Yes Dialysis: Yes (--) HTN: Yes Hypercholesterolemia: Yes Kidney Stones: Yes - Suicide/Smoking/Psychosocial Hx Smoking History: Unknown if ever smoked Have you smoked in the past 12 months: No Hx Alcohol Use: No Drug/Substance Use Hx: No Substance Use Type: None Hx Substance Use Treatment: No Review of Systems - Review of Systems Constitutional: No: Chills, Diaphoresis, Fever Respiratory: No: Cough, Shortness of Breath Cardiac (ROS): No: Chest Pain, Irregular Heart Rate, Lightheadedness, Palpitations ABD/GI: No: Diarrhea, Nausea, Vomiting : No: Burning, Dysuria, Discharge Musculoskeletal: No: Back Pain, Gout, Joint Pain Integumentary: No: Erythema, Flushing, Lesions Neurological: No: Headache, Numbness, Paresthesia Psychiatric: No: Anxiety, Depression *Physical Exam - Physical Exam General Appearance: Yes: Nourished, Appropriately Dressed. No: Apparent Distress HEENT: positive: EOMI, TINO, Normal ENT Inspection, Normal Voice Neck: positive: Trachea midline, Normal Thyroid, Supple. negative: Tender, Rigid Respiratory/Chest: positive: Lungs Clear, Normal Breath Sounds, Respiratory Distress. negative: Chest Tender, Accessory Muscle Use Cardiovascular: positive: Regular Rhythm, Regular Rate Gastrointestinal/Abdominal: positive: Normal Bowel Sounds, Flat, Soft. negative : Tender Lymphatic: negative: Adenopathy, Tenderness Musculoskeletal: positive: Normal Inspection. negative: Decreased Range of Motion Extremity: positive: Normal Capillary Refill, Normal Inspection, Normal Range of Motion. negative: Tender Integumentary: positive: Normal Color, Dry, Warm Neurologic: positive: Fully Oriented, Alert, Normal Mood/Affect, Normal Response , Motor Strength 5/5 ED Treatment Course - LABORATORY CBC & Chemistry Diagram: 01/17/19 13:22 01/17/19 13:22 Medical Decision Making - Medical Decision Making 53 year old [place] patient presenting for anemia to 7 3 days prior and PNA that seems to be resolving with treatment at [place] (augmentin). Hgb 8.4 (previous values in the 9s) in our ED and patient has been asymptomatic throughout this stay. Sister at bedside also feels that the patient looks very well. Will DC back to [facility] after conversation with Dr. Murry and staff. 01/17/19 14:38 *DC/Admit/Observation/Transfer Diagnosis at time of Disposition: Abnormal laboratory test - Discharge Dispostion Disposition: [facility] Condition at time of disposition: Stable Decision to Admit order: No - Referrals Referrals: Tip Gibbs MD [Primary Care Provider] - - Patient Instructions Printed Discharge Instructions: Anemia: How Food and Vitamins Can Help Additional Instructions: You were not found to be severely anemic in our facility. Your HgB was 8.4 which is much higher than the 7.0 at your NH a few days prior. Please return to the ED if you have new or worsening symptoms. - Post Discharge Activity
[2019-01-17 12:22] VITALS: BP 154/95; PULSE 74; TEMP 97.4; BMI 30.9
[2019-01-17 13:43] LABS: EOS % 10.3 % (0-4.5); HEMATOCRIT 24.8 % (35.4-49); HEMOGLOBIN 8.4 GM/dL (11.7-16.9); LYMPH % 14.8 % (8-40); MCH 35.7 pg (25.7-33.7); MCHC 33.9 g/dl (32.0-35.9); MEAN CELL VOLUME 105.6 fl (80-96); MEAN PLT VOLUME 6.7 fl (7.5-11.1); MONO % 11.3 % (3.8-10.2); NEUT % 62.6 % (42.8-82.8); PLATELET COUNT 218 K/MM3 (134-434); RBC 2.35 M/mm3 (4.00-5.60); RDW 15.8 % (11.9-15.9); WHITE BLOOD COUNT 4.8 K/mm3 (4.0-10.0)
[2019-01-17 13:56] LABS: INR 0.96 (0.83-1.09); PROTHROMBIN TIME (PATIENT) 11.3 SEC (9.7-13.0)
[2019-01-17 13:58] LABS: ACTIVATED PTT 28.2 SECONDS (25.2-36.5)
[2019-01-17 14:08] LABS: VENOUS PC02 47.9 mmHg (41-51); VENOUS PH 7.4 (7.31-7.41); VENOUS PO2 66.5 mmHg (30-40)
[2019-01-17 14:15] LABS: ALBUMIN 2.7 g/dl (3.4-5.0); ALK PHOS 238 U/L (45-117); ANION GAP 7 MMOL/L (8-16); BILIRUBIN,TOTAL 0.2 mg/dL (0.2-1); BLOOD UREA NITROGEN 35 mg/dL (7-18); CHLORIDE 97 mmol/L (98-107); CO2 30 mmol/L (21-32); CREATININE 5.5 mg/dL (0.55-1.3); GLUCOSE,RANDOM 74 mg/dL (74-106); N-TERMINAL BNP 9691.5 pg/ml (5-125); POTASSIUM 3.1 mmol/L (3.5-5.1); SGOT/AST 23 U/L (15-37); SGPT/ALT 20 U/L (13-61); SODIUM 134 mmol/L (136-145); TOT PROT 6.3 g/dl (6.4-8.2)
[2019-01-17 14:18] LABS: MACROCYTOSIS 1+
--- NOTE | 2019-01-18 10:48 | EKG ---
Test Reason : Blood Pressure : / mmHG Vent. Rate : 077 BPM Atrial Rate : 077 BPM P-R Int : 142 ms QRS Dur : 084 ms QT Int : 432 ms P-R-T Axes : 060 025 035 degrees QTc Int : 488 ms NORMAL SINUS RHYTHM POSSIBLE LEFT ATRIAL ENLARGEMENT PROLONGED QT ABNORMAL ECG Confirmed by LANI MOLINA MD ([id number]) on 01/18/2019 10:48:46 AM Referred By: Confirmed By:LANI MOLINA MD
== END 2019-01-17 16:37 ==
LOC: JER 11:43
DX: D64.9 Anemia, unspecified (principal); I12.0 Hypertensive chronic kidney disease with stage 5 chronic kidney disease or end stage renal disease; E11.22 Type 2 diabetes mellitus with diabetic chronic kidney disease; N18.6 End stage renal disease; N17.8 Other acute kidney failure; Z99.2 Dependence on renal dialysis; E78.00 Pure hypercholesterolemia, unspecified; I69.820 Aphasia following other cerebrovascular disease; I69.859 Hemiplegia and hemiparesis following other cerebrovascular disease affecting unspecified side; I69.898 Other sequelae of other cerebrovascular disease; G93.49 Other encephalopathy; Z87.442 Personal history of urinary calculi
CPT/HCPCS: 36415; 71045-TC-FY; 80053; 82803; 83605; 83880; 85025; 85610; 85730; 86850; 86900; 86901; 87040; 93005; 93010; 99283-25

== ENCOUNTER 2019-01-21 14:55 | Inpatient (IN) | payer OTHER ==
--- NOTE | 2019-01-21 16:03 | PDOC ---
History of Present Illness - General History Source: [facility] Records, Old Records Exam Limitations: Other ([place]) - History of Present Illness Initial Comments: 01/21/19 15:53 Pt is a 53yo M with PMH of ESRD on HD MWF, Aphasia, CVA x2 with LE weakness, HTN , HLD BIBA from [facility] for inability to access R AVF today. Last dialysis was 3 days ago. No other concerns per NH. Old records state that pt had R AV graft placed by Dr. Bansal. Pt does have a L AVF but per NH, that is not used for access because "we only access the right". Pt is able to understand and follow commands at baseline. PMD: Sai PMH: see hpi PSH: see hpi, cervical discectomy Meds: see med rec Allergies: nkda <Patti Connelly - Last Filed: 01/21/19 19:10> <Day Miller - Last Filed: 01/22/19 11:08> - General Chief Complaint: Dialysis Shunt Problem Stated Complaint: TUBE REPLACEMENT Time Seen by Provider: 01/21/19 15:43 Past History - Past Medical History Anemia: No CVA: Yes (X 2 WITH RESIDUAL WEAKNESS AND APHASIA.) COPD: No Diabetes: Yes Dialysis: Yes ([facility]-) HTN: Yes Hypercholesterolemia: Yes Kidney Stones: Yes - Suicide/Smoking/Psychosocial Hx Smoking History: Never smoked Have you smoked in the past 12 months: No Information on smoking cessation initiated: No Hx Alcohol Use: No Drug/Substance Use Hx: No Substance Use Type: None Hx Substance Use Treatment: No <Patti Connelly - Last Filed: 01/21/19 19:10> <Day Miller - Last Filed: 01/22/19 11:08> - Past Medical History Allergies/Adverse Reactions: Allergies Allergy/AdvReac Type Severity Reaction Status Date / Time No Known Allergies Allergy Verified 01/17/19 12:22 Home Medications: Ambulatory Orders Acetaminophen [Tylenol] 650 mg PO DAILY 09/20/18 Ascorbic Acid [Vitamin C] 500 mg PO DAILY 09/20/18 Aspirin 81 mg PO DAILY 09/20/18 Atorvastatin Ca [Lipitor] 80 mg PO HS 09/20/18 Calcium Acetate 667 mg PO TID 09/20/18 Furosemide [Lasix] 40 mg PO DAILY 09/20/18 Labetalol HCl [Normodyne -] 200 mg PO BID 09/20/18 Ondansetron [Zofran Odt -] 4 mg SL TID 09/20/18 Phenytoin Oral Suspension [Dilantin Oral Suspension 100 MG/4 ML] 200 mg PO BID 09/20/18 Sertraline HCl [Zoloft -] 50 mg PO DAILY 09/20/18 Vitamin B Comp W-C [Nephro-Masha -] 1 tablet PO DAILY 09/20/18 Heparin - 5,000 unit SQ TID vial 09/22/18 Review of Systems - Review of Systems Able to Perform ROS?: No <Patti Connelly - Last Filed: 01/21/19 19:10> *Physical Exam - Vital Signs Last Vital Signs Temp Pulse Resp BP Pulse Ox 98.2 F 68 18 133/75 97 01/21/19 15:00 01/21/19 15:00 01/21/19 15:00 01/21/19 15:00 01/21/19 15:00 - Physical Exam General Appearance: Yes: Appropriately Dressed, Thin. No: Apparent Distress HEENT: positive: EOMI, TINO, Normal ENT Inspection Neck: positive: Trachea midline, Supple. negative: Lymphadenopathy (R), Lymphadenopathy (L) Respiratory/Chest: positive: Lungs Clear, Normal Breath Sounds. negative: Labored Respiration, Rapid RR, Crackles, Rhonchi, Wheezing Cardiovascular: positive: Regular Rhythm, Regular Rate, S1, S2. negative: Edema , JVD, Murmur Vascular Pulses: Carotid (R): 2+, Carotid (L): 2+ Gastrointestinal/Abdominal: positive: Normal Bowel Sounds, Soft. negative: Tender, Distended Musculoskeletal: negative: CVA Tenderness, Vertebral Tenderness Extremity: positive: Normal Capillary Refill. negative: Pedal Edema, Swelling, Calf Tenderness Integumentary: positive: Normal Color, Dry, Warm Neurologic: positive: beauty specialist II-XII NML intact, Alert, Normal Mood/Affect, Normal Response, Motor Strength 5/5, Responsive, Other (follows commands). negative: Fully Oriented (unable to assess) <Patti Connelly - Last Filed: 01/21/19 19:10> - Vital Signs Last Vital Signs Temp Pulse Resp BP Pulse Ox 97.5 F L 75 20 188/83 H 99 01/22/19 07:15 01/22/19 07:15 01/21/19 23:15 01/22/19 07:15 01/22/19 07:15 <Day Miller - Last Filed: 01/22/19 11:08> ED Treatment Course - LABORATORY CBC & Chemistry Diagram: 01/21/19 16:05 01/21/19 16:05 <Patti Connelly - Last Filed: 01/21/19 19:10> - LABORATORY CBC & Chemistry Diagram: 01/22/19 05:20 01/22/19 05:20 - ADDITIONAL ORDERS Additional order review: 01/21/19 16:05 RBC 2.41 L MCV 107.6 H MCHC 32.7 RDW 16.2 H MPV 7.5 D Neutrophils % 59.4 Lymphocytes % 16.5 Monocytes % 11.7 H Eosinophils % 11.5 H Basophils % 0.9 - Medications Given in the ED: ED Medications Discontinued Medications Generic Name Dose Route Start Last Admin Trade Name Cr PRN Reason Stop Dose Admin Calcium Gluconate 1,000 mg 01/21/19 21:00 01/21/19 21:34 Calcium Gluconate 10% - IVPUSH 01/21/19 21:01 1,000 mg ONCE ONE Administration Dextrose 25 gm 01/21/19 20:09 01/21/19 21:34 D50w (Vial) - IVPUSH 01/21/19 20:10 25 gm NOW ONE Administration Sodium Polystyrene Sulfonate 45 gm 01/21/19 20:09 01/21/19 21:34 Kayexalate - PO 01/21/19 20:10 45 gm ONCE ONE Administration <Day Miller - Last Filed: 01/22/19 11:08> Medical Decision Making - Medical Decision Making 01/21/19 18:45 Pt is a 53yo M with PMH of ESRD on HD MWF, Aphasia, CVA x2 with LE weakness, HTN , HLD BIBA from [facility] for inability to access R AVF today. Last dialysis was 3 days ago. No other concerns per [place]. Old records state that pt had R AV graft placed by Dr. Bansal. Pt does have a L AVF but per [facility], that is not used for access because "we only access the right". Vitals: wnl PE: RAFV or graft without palpable thrill or bruit. No bleeding. L AVF has thrill and bruit. No edema, lungs cta. pt alert and following commands. aphasic at baseline ddx includes but not limited to occluded av graft/fistula, hyperk, fluid overload, metabolic/electrolyte abnormality, clotting d/o -labs -ekg, us labs significant for cr 13, K 5.5. all other labs wnl. ekg: nsr. no conrado or depressions. t waves do not appear to be peaked. QTc 451. US shows thrombosed vein in AV fistula. -consult vascular. pt has thrombosed avf. will admit for thrombosed avf and dialysis. pt admitted to hospitalist <Patti Connelly - Last Filed: 01/21/19 19:10> *DC/Admit/Observation/Transfer - Discharge Dispostion Decision to Admit order: Yes <Patti Connelly - Last Filed: 01/21/19 19:10> - Discharge Dispostion Decision to Admit order: Yes Decision to Admit order Date/Time: 01/22/19 11:08 <Day Miller - Last Filed: 01/22/19 11:08> Diagnosis at time of Disposition: AV fistula occlusion Qualifiers: Encounter type: initial encounter Qualified Code(s): T82.898A - Other specified complication of vascular prosthetic devices, implants and grafts, initial encounter - Discharge Dispostion Condition at time of disposition: Guarded Addendum entered and electronically signed by Patti Connelly RESIDENT 01/21/19 19: 11: Departure/Admission/Transfer - DischargeDeparture ED Status: Observation, place in Discharge Diagnosis: Hyperkalemia AV fistula occlusion Qualifiers: Encounter type: initial encounter Qualified Code(s): T82.898A - Other specified complication of vascular prosthetic devices, implants and grafts, initial encounter
--- NOTE | 2019-01-21 16:38 | PDOC ---
Attending Attestation - Resident Resident Name: MaricelPatti - ED Attending Attestation I have performed the following: I have examined & evaluated the patient, The case was reviewed & discussed with the resident, I agree w/resident's findings & plan - [facility] HPI: 01/21/19 18:08 53yo M with PMH of ESRD on HD MWF, Anterior Cervical Discectomy fusion and plating with resulting muteness, CVA x2 with LE weakness, HTN, HLD presenting from [facility] with right AV shunt access malfunction Previously with similar presentation, occluded rt AVF. Last clot was 09/21/18, seen by Dr Bansal 01/22/19 11:06 - Physicial Exam PE: 01/21/19 16:36 Agree with the resident's HPI and PE as documented in the electronic medical record. NAD, sleeping comfortably, mute, PERRL, EOMI, pale conjunctiva, anicteric; neck supple. lungs clear, RRR, abdomen soft nontender. GILLIS x4. No peripheral edema. normal color for ethnicity, WWP. 2+ Pulses peripherally. RUE AVF site absent bruit, no palp thrill. very dry and sclerosed AVG LUE AVF with palp thrill and +auscultated bruit. 01/21/19 18:05 01/22/19 11:06 01/22/19 11:07 - Medical Decision Making 01/21/19 16:37 I, Day Miller MD, attest that this document has been prepared under my direction and personally reviewed by me in its entirety. I further attest, that it accurately reflects all work, treatment, procedures and medical decision -making performed by me. See HPI for details Vital signs reviewed, wnl. DDX likely occluded AVF, stenosis, thrombosis. Prior notes reviewed, including admissions, discharges and consultations. laboratory results and imaging reviewed, basic labs and lytes wnl, notable for K 5.5, ESRD - no HD today. no EKG changes such as interval derangements, qRS widening, tented T waves or ischemia, will need HD after fixation of occluded AVG. defer tx for now. EKG normal sinus rhythm at 64 bpm, no interval abnormalities, narrow QRS, ST and T wave segments and morphology normal. ED course - duplex to check AVG, likely occluded given clinical exam. confirms thrombosis in AVF at draining vein. - vascular cs, vocational teacher Dr Jc - admit to Dr Gibbs/Cristian group. 01/21/19 18:09 01/22/19 11:06 Heart Score/ECG Review #1 ECG reviewed & interpreted by me at: 16:35 General ECG Interpretation: Sinus Rhythm, Normal Rate, Normal Intervals, No acute ischemic changes Compared to previous ECG there are: No significant change 01/21/19 17:01 EKG normal sinus rhythm at 64 bpm, no interval abnormalities, narrow QRS, ST and T wave segments and morphology normal.
[2019-01-21 17:17] LABS: BASO % 0.9 % (0-2.0); EOS % 11.5 % (0-4.5); HEMATOCRIT 25.9 % (35.4-49); HEMOGLOBIN 8.5 GM/dL (11.7-16.9); LYMPH % 16.5 % (8-40); MCH 35.2 pg (25.7-33.7); MCHC 32.7 g/dl (32.0-35.9); MEAN CELL VOLUME 107.6 fl (80-96); MEAN PLT VOLUME 7.5 fl (7.5-11.1); MONO % 11.7 % (3.8-10.2); NEUT % 59.4 % (42.8-82.8); PLATELET COUNT 197 K/MM3 (134-434); RBC 2.41 M/mm3 (4.00-5.60); RDW 16.2 % (11.9-15.9); WHITE BLOOD COUNT 5.4 K/mm3 (4.0-10.0)
[2019-01-21 17:39] LABS: INR 0.93 (0.83-1.09)
[2019-01-21 17:41] LABS: ACTIVATED PTT 25.5 SECONDS (25.2-36.5)
[2019-01-21 17:50] LABS: ANISOCYTOSIS 1+; MACROCYTOSIS 2+; PLATELET ESTIMATE ADEQUATE; TARGET CELLS FEW
[2019-01-21 17:58] LABS: ALBUMIN 2.9 g/dl (3.4-5.0); ALK PHOS 255 U/L (45-117); ANION GAP 11 MMOL/L (8-16); BILIRUBIN,TOTAL 0.3 mg/dL (0.2-1); BLOOD UREA NITROGEN 83 mg/dL (7-18); CALCIUM 8.2 mg/dL (8.5-10.1); CHLORIDE 101 mmol/L (98-107); CO2 26 mmol/L (21-32); GLUCOSE,RANDOM 121 mg/dL (74-106); MAGNESIUM 2.8 mg/dL (1.8-2.4); POTASSIUM 5.5 mmol/L (3.5-5.1); SGOT/AST 28 U/L (15-37); SGPT/ALT 20 U/L (13-61); SODIUM 138 mmol/L (136-145); TOT PROT 6.7 g/dl (6.4-8.2)
[2019-01-21 18:00] LABS: CREATININE 13.4 mg/dL (0.55-1.3)
--- NOTE | 2019-01-21 18:20 | HP ---
CHIEF COMPLAINT: Right AVG occlusion PCP: Sai HISTORY OF PRESENT ILLNESS: 52 year old man ESRD on HD sent from [facility] for right AV shunt access malfunction. Patient was due for HD today. Patient with previous Left AV fistula which also malfunctioned an is not in use. 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 Naranjo. 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 M[place] (from surgery 2014) Seizures diabetes HTN HLD ESRD on HD PAST SURGICAL HISTORY: Cervical discectomy and fusion AV fistula Social History: Lives in [facility] Smoking: Never smoked Alcohol: None Drugs: None Social History: unknown Smoking: Alcohol: Drugs: Family History: unknown Allergies No Known Allergies Allergy (Verified 01/17/19 12:22) HOME MEDICATIONS: Home Medications Medication Instructions Recorded Acetaminophen [Tylenol] 650 mg PO DAILY 09/20/18 Ascorbic Acid [Vitamin C] 500 mg PO DAILY 09/20/18 Aspirin 81 mg PO DAILY 09/20/18 Atorvastatin Ca [Lipitor] 80 mg PO HS 09/20/18 Calcium Acetate 667 mg PO TID 09/20/18 Furosemide [Lasix] 40 mg PO DAILY 09/20/18 Labetalol HCl [Normodyne -] 200 mg PO BID 09/20/18 Ondansetron [Zofran Odt -] 4 mg SL TID 09/20/18 Phenytoin Oral Suspension 200 mg PO BID 09/20/18 [Dilantin Oral Suspension 100 MG/4 ML] Sertraline HCl [Zoloft -] 50 mg PO DAILY 09/20/18 Vitamin B Comp W-C [Nephro-Masha -] 1 tablet PO DAILY 09/20/18 Heparin - 5,000 unit SQ TID vial 09/22/18 REVIEW OF SYSTEMS - unable to obtain- patient is nonverbal PHYSICAL EXAMINATION Vital Signs - 24 hr 01/21/19 15:00 Temperature 98.2 F Pulse Rate 68 Respiratory 18 Rate Blood Pressure 133/75 O2 Sat by Pulse 97 Oximetry (%) GENERAL: Awake, alert, and fully oriented, in no acute distress. HEAD: Normal with no signs of trauma. EYES: Pupils equal, round and reactive to light, extraocular movements intact, sclera anicteric, conjunctiva clear. No lid lag. EARS, NOSE, THROAT: Ears normal, nares patent, oropharynx clear without exudates. Moist mucous membranes. NECK: Normal range of motion, supple without lymphadenopathy, JVD, or masses. LUNGS: Breath sounds equal, clear to auscultation bilaterally. No wheezes, and no crackles. No accessory muscle use. HEART: Regular rate and rhythm, normal S1 and S2 without murmur, rub or gallop. ABDOMEN: Soft, nontender, not distended, normoactive bowel sounds, no guarding, no rebound, no masses. MUSCULOSKELETAL: Normal range of motion at all joints. No bony deformities or tenderness. UPPER EXTREMITIES: left upper ext AVF +bruit, thrill, right upper ext AV fistula , did not appreciated bruit or thrill LOWER EXTREMITIES: 2+ pulses, warm, well-perfused. No calf tenderness. No peripheral edema. NEUROLOGICAL: -aphasic PSYCHIATRIC: aphasic, noncooperative SKIN: Warm, dry, normal turgor, no rashes or lesions noted, normal capillary refill. Laboratory Results - last 24 hr 01/21/19 01/21/19 01/21/19 16:05 16:05 16:05 WBC 5.4 RBC 2.41 L Hgb 8.5 L Hct 25.9 L MCV 107.6 H MCH 35.2 H MCHC 32.7 RDW 16.2 H Plt Count 197 MPV 7.5 D Absolute Neuts (auto) 3.2 Neutrophils % 59.4 Lymphocytes % 16.5 Monocytes % 11.7 H Eosinophils % 11.5 H Basophils % 0.9 Nucleated RBC % 0 Hypochromia 1+ Platelet Estimate Adequate Platelet Comment No clumping noted Polychromasia 1+ Anisocytosis 1+ Macrocytosis 2+ Target Cells Few PT with INR 11.00 INR 0.93 PTT (Actin FS) 25.5 Sodium 138 Potassium 5.5 H Chloride 101 Carbon Dioxide 26 Anion Gap 11 BUN 83 H Creatinine 13.4 H* Creat Clearance w eGFR 3.91 Random Glucose 121 H Calcium 8.2 L Magnesium 2.8 H Total Bilirubin 0.3 AST 28 ALT 20 Alkaline Phosphatase 255 H Total Protein 6.7 Albumin 2.9 L EKG reviewed ASSESSMENT/PLAN: #ESRD- last HD on 01/18-Right fistula access malfunction -did not undergo HD today due to access malfunction -On HD M,W,F -Followed by 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 Naranjo -Vascular surgeon Dr. Jc - possible thrombectomy tomorrow -f/u duplex U/S of AV graft site #Mild hyperkalemia -k-5.5 - borderline Peaked T waves -monitor on cardiac monitoring -PO kayexalate -Calcium gluconate -IV insulin, d50 -monitor K levels -early HD #CVA - x 2 (2009, 2011) - Residual weakness and aphasia - Aspirin 81 mg PO DAILY #HTN - Lasix 40 mg PO DAILY - Labetalol HCl 200 mg PO BID #HLD - Atorvastatin Ca 80 mg PO HS - LFTs WNL #Seizures - Dilantin 200 mg PO BID #Depression - Zoloft 50 mg PO DAILY #DVT ppx -heparin sc Visit type - Emergency Visit Emergency Visit: Yes ED Registration Date: 01/21/19 Care time: The patient presented to the Emergency Department on the above date and was hospitalized for further evaluation of their emergent condition. - New Patient This patient is new to me today: Yes Date on this admission: 01/21/19 - Critical Care Critical Care patient: No
[2019-01-21 19:21] LABS: N-TERMINAL BNP 7140.2 pg/ml (5-125)
[2019-01-21] MEDS ORDERED: SODIUM POLYSTYRENE SULFONATE 15 GM/60 ML BOTTLE PO ONE (20:09)
[2019-01-21] MEDS ORDERED: DEXTROSE 50%-WATER - 25 GM/50 ML VIAL IVPUSH ONE (20:09)
[2019-01-21] MEDS ORDERED: CALCIUM GLUCONATE 10% - 1,000 MG/10 ML VIAL IVPUSH ONE (21:00)
[2019-01-21] MEDS ORDERED: CALCIUM GLUCONATE 10% - 1,000 MG/10 ML VIAL ONE (21:01)
[2019-01-21] MEDS ORDERED: DEXTROSE 50%-WATER 25 GM/50 ML DISP.SYRIN ONE (21:01)
[2019-01-21] MEDS ORDERED: SODIUM POLYSTYRENE SULFONATE 15 GM/60 ML BOTTLE ONE (21:02)
[2019-01-21] MEDS ORDERED: INSULIN (NOVOLOG) ASPART 100 UNITS/ML 10ML VIAL ONE (21:27)
[2019-01-21] MEDS: PHENYTOIN ORAL SUSP 125 MG/5 ML PO SCH (23:00)
[2019-01-21] MEDS: ATORVASTATIN CA 80 MG TABLET (FP) PO SCH (23:01)
[2019-01-21] MEDS: HEPARIN NA (PORCINE) 5,000 UNITS/ML 1ML VIAL SQ SCH (23:01)
[2019-01-21] MEDS: LABETALOL HCL 200 MG TABLET (FP) PO SCH (23:15)
[2019-01-22 06:14] LABS: HEMATOCRIT 26.5 % (35.4-49); HEMOGLOBIN 8.8 GM/dL (11.7-16.9); MCH 35.3 pg (25.7-33.7); MCHC 33.3 g/dl (32.0-35.9); MEAN CELL VOLUME 105.9 fl (80-96); MEAN PLT VOLUME 7.4 fl (7.5-11.1); PLATELET COUNT 209 K/MM3 (134-434); RDW 16.3 % (11.9-15.9); WHITE BLOOD COUNT 5.8 K/mm3 (4.0-10.0)
[2019-01-22 06:53] LABS: ANION GAP 14 MMOL/L (8-16); BLOOD UREA NITROGEN 89 mg/dL (7-18); CALCIUM 8.5 mg/dL (8.5-10.1); CHLORIDE 103 mmol/L (98-107); CO2 25 mmol/L (21-32); GLUCOSE,RANDOM 90 mg/dL (74-106); POTASSIUM 4.5 mmol/L (3.5-5.1); SODIUM 141 mmol/L (136-145)
[2019-01-22] MEDS: CALCIUM ACETATE 667 MG CAPSULE (FP) PO SCH ×3 (08:36→17:32)
[2019-01-22] MEDS: PHENYTOIN ORAL SUSP 125 MG/5 ML PO SCH ×2 (09:00→23:16)
[2019-01-22] MEDS: HEPARIN NA (PORCINE) 5,000 UNITS/ML 1ML VIAL SQ SCH ×2 (09:00→23:16)
[2019-01-22] MEDS: ASPIRIN 81 MG CHEWABLE TABLETS PO SCH (09:01)
[2019-01-22] MEDS: SERTRALINE HCL 50 MG TABLET (FP) PO SCH (09:01)
[2019-01-22] MEDS: LABETALOL HCL 200 MG TABLET (FP) PO SCH ×2 (09:01→23:16)
[2019-01-22] MEDS: FUROSEMIDE 40 MG TABLET (FP) PO SCH (09:01)
--- NOTE | 2019-01-22 10:27 | PN ---
Progress Note (short form) - Note Progress Note: admitted for AVF clotted No distress Vital Signs - 24 hr 01/21/19 01/21/19 01/21/19 15:00 18:43 20:00 Temperature 98.2 F 97.9 F Pulse Rate 68 Pulse Rate [ 65 Right Radial] Respiratory 18 12 Rate Blood Pressure 133/75 Blood Pressure 146/76 [Left] O2 Sat by Pulse 97 97 98 Oximetry (%) 01/21/19 01/22/19 01/22/19 23:15 07:15 12:13 Temperature 97.5 F L 97.9 F Pulse Rate Pulse Rate [ 70 75 75 Right Radial] Respiratory 20 17 Rate Blood Pressure Blood Pressure 169/78 188/83 H 179/81 H [Left] O2 Sat by Pulse 98 99 97 Oximetry (%) Current Medications Generic Name Dose Route Start Last Admin Trade Name Freq PRN Reason Stop Dose Admin Aspirin 81 mg 01/22/19 10:00 01/22/19 09:01 Asa - PO 81 mg DAILY TYREE Administration Atorvastatin Calcium 80 mg 01/21/19 22:00 01/21/19 23:01 Lipitor - PO 80 mg HS TYREE Administration Calcium Acetate 667 mg 01/22/19 08:00 01/22/19 11:06 Phoslo - PO Not Given TIDCM TYREE Furosemide 40 mg 01/22/19 10:00 01/22/19 09:01 Lasix - PO 40 mg DAILY TYREE Administration Heparin Sodium (Porcine) 5,000 unit 01/21/19 22:00 01/22/19 09:00 Heparin - SQ 5,000 unit BID TYREE Administration Insulin Aspart 5 units 01/22/19 20:10 Novolog IV 01/22/19 20:11 ONCE ONE Labetalol HCl 200 mg 01/21/19 22:00 01/22/19 09:01 Normodyne - PO 200 mg BID TYREE Administration Phenytoin Sodium 200 mg 01/21/19 22:00 01/22/19 09:00 Dilantin Oral Suspension - PO 200 mg BID TYREE Administration Sertraline HCl 50 mg 01/22/19 10:00 01/22/19 09:01 Zoloft - PO 50 mg DAILY TYREE Administration Laboratory Results - last 24 hr 01/21/19 01/21/19 01/21/19 16:05 16:05 16:05 WBC 5.4 RBC 2.41 L Hgb 8.5 L Hct 25.9 L MCV 107.6 H MCH 35.2 H MCHC 32.7 RDW 16.2 H Plt Count 197 MPV 7.5 D Absolute Neuts (auto) 3.2 Neutrophils % 59.4 Lymphocytes % 16.5 Monocytes % 11.7 H Eosinophils % 11.5 H Basophils % 0.9 Nucleated RBC % 0 Hypochromia 1+ Platelet Estimate Adequate Platelet Comment No clumping noted Polychromasia 1+ Anisocytosis 1+ Macrocytosis 2+ Target Cells Few PT with INR 11.00 INR 0.93 PTT (Actin FS) 25.5 Sodium 138 Potassium 5.5 H Chloride 101 Carbon Dioxide 26 Anion Gap 11 BUN 83 H Creatinine 13.4 H* Creat Clearance w eGFR 3.91 Random Glucose 121 H Calcium 8.2 L Magnesium 2.8 H Total Bilirubin 0.3 AST 28 ALT 20 Alkaline Phosphatase 255 H B-Natriuretic Peptide 7140.2 H Total Protein 6.7 Albumin 2.9 L Phenytoin Blood Type Antibody Screen 01/21/19 01/22/19 01/22/19 16:05 05:20 05:20 WBC 5.8 RBC 2.50 L Hgb 8.8 L Hct 26.5 L MCV 105.9 H MCH 35.3 H MCHC 33.3 RDW 16.3 H Plt Count 209 MPV 7.4 L Absolute Neuts (auto) Neutrophils % Lymphocytes % Monocytes % Eosinophils % Basophils % Nucleated RBC % Hypochromia Platelet Estimate Platelet Comment Polychromasia Anisocytosis Macrocytosis Target Cells PT with INR INR PTT (Actin FS) Sodium 141 Potassium 4.5 Chloride 103 Carbon Dioxide 25 Anion Gap 14 BUN 89 H Creatinine 14.0 H* Creat Clearance w eGFR 3.72 Random Glucose 90 Calcium 8.5 Magnesium Total Bilirubin AST ALT Alkaline Phosphatase B-Natriuretic Peptide Total Protein Albumin Phenytoin Blood Type A POSITIVE Antibody Screen Negative 01/22/19 05:20 WBC RBC Hgb Hct MCV MCH MCHC RDW Plt Count MPV Absolute Neuts (auto) Neutrophils % Lymphocytes % Monocytes % Eosinophils % Basophils % Nucleated RBC % Hypochromia Platelet Estimate Platelet Comment Polychromasia Anisocytosis Macrocytosis Target Cells PT with INR INR PTT (Actin FS) Sodium Potassium Chloride Carbon Dioxide Anion Gap BUN Creatinine Creat Clearance w eGFR Random Glucose Calcium Magnesium Total Bilirubin AST ALT Alkaline Phosphatase B-Natriuretic Peptide Total Protein Albumin Phenytoin 29.5 H Blood Type Antibody Screen S1 S2 RRR Lung decreased Abd- soft, NT No edema Rt arm AVF-- no thrill PLAN Vascular eval Renal eval will need declotting continue with meds not in volume overload Problem List - Problems (1) AV fistula occlusion Code(s): T82.898A - [facility] COMPLICATION OF VASCULAR PROSTH DEV/GRFT, INIT Qualifiers: Encounter type: initial encounter Qualified Code(s): T82.898A - Other specified complication of vascular prosthetic devices, implants and grafts, initial encounter (2) CVA, old, aphasia Code(s): I69.320 - APHASIA FOLLOWING CEREBRAL INFARCTION (3) Dialysis AV fistula malfunction Code(s): T82.590A - [facility] COMPL OF SURGICALLY CREATED ARTERIOVENOUS FISTULA, INIT (4) ESRD (end stage renal disease) on dialysis Code(s): N18.6 - END STAGE RENAL DISEASE; Z99.2 - DEPENDENCE ON RENAL DIALYSIS (5) Hypertension Code(s): I10 - ESSENTIAL (PRIMARY) HYPERTENSION
--- NOTE | 2019-01-22 12:35 | EKG ---
Test Reason : Blood Pressure : / mmHG Vent. Rate : 064 BPM Atrial Rate : 064 BPM P-R Int : 154 ms QRS Dur : 090 ms QT Int : 438 ms P-R-T Axes : 060 041 050 degrees QTc Int : 451 ms NORMAL SINUS RHYTHM NORMAL ECG Confirmed by MD FORTUNATO, NED ([id number]) on 01/22/2019 12:35:23 PM Referred By: Confirmed By:NED BUCIO MD
--- NOTE | 2019-01-22 14:50 | CONSULT ---
- Consultation REQUESTING PROVIDER: CONSULT REQUEST: We have been asked to surgically evaluate this patient for . PCP:Tip Gibbs HISTORY OF PRESENT ILLNESS: The patients sister is at bedside this afternoon to help with a history. The patient last had HD on monday via the RUE fistula. He had a LUE fistula placed years ago while in living in the [place] and a revision [facility]. His family has noticed that his left arm has been swollen over the past week. He is bed bound from previous co[facility]ran that he has had in the past. PMHx: ESRD on HD, Stroke, diabetes PSHx: LUE fistula, RUE fistula with thrombectomy 09/18/18, cervcial neck surgery Home Medications Medication Instructions Recorded Acetaminophen [Tylenol] 650 mg PO DAILY 09/20/18 Ascorbic Acid [Vitamin C] 500 mg PO DAILY 09/20/18 Aspirin 81 mg PO DAILY 09/20/18 Atorvastatin Ca [Lipitor] 80 mg PO HS 09/20/18 Calcium Acetate 667 mg PO TID 09/20/18 Furosemide [Lasix] 40 mg PO DAILY 09/20/18 Labetalol HCl [Normodyne -] 200 mg PO BID 09/20/18 Ondansetron [Zofran Odt -] 4 mg SL TID 09/20/18 Phenytoin Oral Suspension 200 mg PO BID 09/20/18 [Dilantin Oral Suspension 100 MG/4 ML] Sertraline HCl [Zoloft -] 50 mg PO DAILY 09/20/18 Vitamin B Comp W-C [Nephro-Masha -] 1 tablet PO DAILY 09/20/18 Heparin - 5,000 unit SQ TID vial 09/22/18 Allergies Allergy/AdvReac Type Severity Reaction Status Date / Time No Known Allergies Allergy Verified 01/17/19 12:22 REVIEW OF SYSTEMS: CONSTITUTIONAL: Absent: fever, chills RESPIRATORY: Present: was being treated for pneumonia at [place] [facility]. Repeat CXR 01/17/19 with no acute infiltrates or effusions. GASTROINTESTINAL: Present: anemia seen and discharge from [facility] ER on 01/17/19 PHYSICAL EXAM: GENERAL: Awake, non verbal LUNGS: Clear to auscultation bilat anteriorly. No wheezes, and no crackles. HEART: Regular rate and rhythm. ABDOMEN: Soft, nontender, not distended. UPPER EXTREMITIES: 2+ radial pulses, warm, well-perfused. RUE with clotted AVG, no thrill palpable or bruit auscultated. Small 1 x 1cm dried scab at most superior aspect. LUE with palpable thrill at AC( short segment) with auscultated bruit to axilla with no palpable thrill beyond AC level. LUE swollen. LOWER EXTREMITIES: 2+ pulses, warm, well-perfused. No calf tenderness. No peripheral edema. Vital Signs Temperature 97.9 F 01/22/19 12:13 Pulse Rate 75 01/22/19 12:13 Respiratory Rate 17 01/22/19 12:13 Blood Pressure 179/81 H 01/22/19 12:13 O2 Sat by Pulse Oximetry (%) 97 01/22/19 12:13 Lab Results WBC 5.8 K/mm3 (4.0-10.0) 01/22/19 05:20 RBC 2.50 M/mm3 (4.00-5.60) L 01/22/19 05:20 Hgb 8.8 GM/dL (11.7-16.9) L 01/22/19 05:20 Hct 26.5 % (35.4-49) L 01/22/19 05:20 MCV 105.9 fl (80-96) H 01/22/19 05:20 MCHC 33.3 g/dl (32.0-35.9) 01/22/19 05:20 RDW 16.3 % (11.9-15.9) H 01/22/19 05:20 Plt Count 209 K/MM3 (134-434) 01/22/19 05:20 Sodium 141 mmol/L (136-145) 01/22/19 05:20 Potassium 4.5 mmol/L (3.5-5.1) 01/22/19 05:20 Chloride 103 mmol/L (98-107) 01/22/19 05:20 Carbon Dioxide 25 mmol/L (21-32) 01/22/19 05:20 Anion Gap 14 MMOL/L (8-16) 01/22/19 05:20 BUN 89 mg/dL (7-18) H 01/22/19 05:20 Creatinine 14.0 mg/dL (0.55-1.3) H* 01/22/19 05:20 Random Glucose 90 mg/dL (74-106) 01/22/19 05:20 Calcium 8.5 mg/dL (8.5-10.1) 01/22/19 05:20 Blood Type A POSITIVE 01/21/19 16:05 Antibody Screen Negative 01/21/19 16:05 INR 0.93 (0.83-1.09) 01/21/19 16:05 CXR: 01/17/19-no acute infusion/infiltrates Problem List - Problems (1) AV fistula occlusion Assessment/Plan: Pt with occluded AVGraft to RUE Case D/w Dr. Bansal and Dr. Sol and will plan for RUE suction thrombectom with possible permcath insertion tomorrow Npo after midnight for the OR on 01/23 Elevate LUE at all times, spoke with DR. 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 Sister at bedside and consent obtained today nd placed in chart for the procedure. Medical clearance for OR tomorrow. Code(s): T82.898A - [facility] COMPLICATION OF VASCULAR PROSTH DEV/GRFT, INIT Qualifiers: Encounter type: initial encounter Qualified Code(s): T82.898A - Other specified complication of vascular prosthetic devices, implants and grafts, initial encounter
--- NOTE | 2019-01-22 14:57 | CONSULT ---
Consult Consult Specialty:: Nephrology Reason for Consultation:: ESRD - History of Present Illness Chief Complaint: sent in for clotted graft History of Present Illness: Pt is a 53 year old make with pmhx of esrd, aphasia, cva, HTN, HLD and anemia who was sent in for a clotted right av graft. He is unable to give history. His mother is at bedside. He is followed by Dr Bansal. He will go to OR tomorrow at 11 am for theombectomy. He denies fevers or chills. He appears comfortable. - Past Medical History [employer]: Yes: CVA, Other (APHASIA) Cardio/Vascular: Yes: HTN Renal/: Yes: Renal Failure, Hemodialysis - Past Surgical History Past Surgical History: Yes: Carotid Endarterectomy - Alcohol/Substance Use Hx Alcohol Use: No - Smoking History Smoking history: Never smoked Have you smoked in the past 12 months: No Home Medications - Allergies Allergies/Adverse Reactions: Allergies Allergy/AdvReac Type Severity Reaction Status Date / Time No Known Allergies Allergy Verified 01/17/19 12:22 - Home Medications Home Medications: Ambulatory Orders RX: Acetaminophen [Tylenol] 650 mg PO DAILY 09/20/18 RX: Ascorbic Acid [Vitamin C] 500 mg PO DAILY 09/20/18 RX: Aspirin 81 mg PO DAILY 09/20/18 RX: Atorvastatin Ca [Lipitor] 80 mg PO HS 09/20/18 RX: Calcium Acetate 667 mg PO TID 09/20/18 RX: Furosemide [Lasix] 40 mg PO DAILY 09/20/18 RX: Labetalol HCl [Normodyne -] 200 mg PO BID 09/20/18 RX: Ondansetron [Zofran Odt -] 4 mg SL TID 09/20/18 RX: Phenytoin Oral Suspension [Dilantin Oral Suspension 100 MG/4 ML] 200 mg PO BID 09/20/18 RX: Sertraline HCl [Zoloft -] 50 mg PO DAILY 09/20/18 RX: Vitamin B Comp W-C [Nephro-Masha -] 1 tablet PO DAILY 09/20/18 RX: Heparin - 5,000 unit SQ TID vial 09/22/18 Family Disease History - Family Disease History Family Disease History: Other: Sister (alive and well) Review of Systems - Review of Systems Constitutional: reports: No Symptoms Eyes: reports: No Symptoms HENT: reports: No Symptoms Neck: reports: No Symptoms Cardiovascular: reports: No Symptoms Respiratory: reports: No Symptoms Gastrointestinal: reports: No Symptoms Genitourinary: reports: No Symptoms Musculoskeletal: reports: No Symptoms Integumentary: reports: No Symptoms Neurological: reports: No Symptoms Endocrine: reports: No Symptoms Hematology/Lymphatic: reports: No Symptoms Psychiatric: reports: No Symptoms Physical Exam Vital Signs: Vital Signs Temperature 97.9 F 01/22/19 12:13 Pulse Rate 75 01/22/19 12:13 Respiratory Rate 17 01/22/19 12:13 Blood Pressure 179/81 H 01/22/19 12:13 O2 Sat by Pulse Oximetry (%) 97 01/22/19 12:13 Constitutional: Yes: Calm Eyes: Yes: Conjunctiva Clear HENT: Yes: Atraumatic Neck: Yes: Supple Cardiovascular: Yes: S1, S2 Respiratory: Yes: CTA Bilaterally Gastrointestinal: Yes: Normal Bowel Sounds, Soft Renal/: Yes: Incontinence Musculoskeletal: Yes: Muscle Weakness Extremities: Yes: Other (right arm graft no thrill or bruit) Edema: No Neurological: Yes: Pre-Existing Deficit Labs: CBC, BMP 01/22/19 05:20 01/22/19 05:20 Laboratory Tests 01/21/19 01/21/19 01/22/19 16:05 16:05 05:20 Hgb 8.5 L 8.8 L Sodium 138 Potassium 5.5 H BUN Creatinine 01/22/19 05:20 Hgb Sodium 141 Potassium 4.5 BUN 89 H Creatinine 14.0 H* Assessment/Plan Current Medications Generic Name Dose Route Start Last Admin Trade Name Freq PRN Reason Stop Dose Admin Aspirin 81 mg 01/22/19 10:00 01/22/19 09:01 Asa - PO 81 mg DAILY TYREE Administration Atorvastatin Calcium 80 mg 01/21/19 22:00 01/21/19 23:01 Lipitor - PO 80 mg HS TYREE Administration Calcium Acetate 667 mg 01/22/19 08:00 01/22/19 11:06 Phoslo - PO Not Given TIDCM TYREE Furosemide 40 mg 01/22/19 10:00 01/22/19 09:01 Lasix - PO 40 mg DAILY TYREE Administration Heparin Sodium (Porcine) 5,000 unit 01/21/19 22:00 01/22/19 09:00 Heparin - SQ 5,000 unit BID TYREE Administration Insulin Aspart 5 units 01/22/19 20:10 Novolog IV 01/22/19 20:11 ONCE ONE Labetalol HCl 200 mg 01/21/19 22:00 01/22/19 09:01 Normodyne - PO 200 mg BID TYREE Administration Phenytoin Sodium 200 mg 01/21/19 22:00 01/22/19 09:00 Dilantin Oral Suspension - PO 200 mg BID TYREE Administration Sertraline HCl 50 mg 01/22/19 10:00 01/22/19 09:01 Zoloft - PO 50 mg DAILY TYREE Administration Impression 1. ESRD 2. chol 3. hx CVA 4. HTN 5. access malfunction 6. epilepsy Plan - pt to have thrombectomy tomorrow - HD tomorrow - renal diet - cont lasix - discussed plan with mother
[2019-01-22 15:00] VITALS: BMI 18.4
--- NOTE | 2019-01-22 15:36 | PN ---
Progress Note (short form) - Note Progress Note: VASCULAR SURGERY Patient known to me. 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 Right AVG clotted. Plan for declot tomorrow, possible permacath. Please keep patient NPO after midnight. d/w [place] [facility] vascular SARITHA and Dr. Naranjo
[2019-01-22] MEDS ORDERED: Insulin (LOG) Aspart 100 UNITS/ML VIAL IV ONE (20:10)
[2019-01-22] MEDS: ATORVASTATIN CA 80 MG TABLET (FP) PO SCH (23:16)
[2019-01-23] MEDS: CALCIUM ACETATE 667 MG CAPSULE (FP) PO SCH (08:06)
[2019-01-23] MEDS: ASPIRIN 81 MG CHEWABLE TABLETS PO SCH (09:16)
[2019-01-23] MEDS: LABETALOL HCL 200 MG TABLET (FP) PO SCH (09:16)
[2019-01-23] MEDS: HEPARIN NA (PORCINE) 5,000 UNITS/ML 1ML VIAL SQ SCH (09:17)
[2019-01-23] MEDS: FUROSEMIDE 40 MG TABLET (FP) PO SCH (09:18)
[2019-01-23] MEDS: SERTRALINE HCL 50 MG TABLET (FP) PO SCH (09:18)
[2019-01-23] MEDS ORDERED: MIDAZOLAM HCL 2 MG/2 ML SINGLE DOSE VIAL ONE (10:27)
[2019-01-23] MEDS ORDERED: PROPOFOL 20 ML ONE (10:27)
[2019-01-23] MEDS ORDERED: HEPARIN NA (PORCINE) 5,000 UNITS/ML 1ML VIAL ONE ×2 (10:30→12:13)
[2019-01-23] MEDS ORDERED: LIDOCAINE HCL 1%, 10 MG/ML (20ML VIAL) ONE (10:31)
--- NOTE | 2019-01-23 10:45 | PN ---
Progress Note, Physician History of Present Illness: Pt seen and examined at bedside. He is awake and is at baseline. He is going for thrombectomy today. - Current Medication List Current Medications: Active Medications Aspirin (Asa -) 81 mg PO DAILY [facility] Last Admin: 01/23/19 09:16 Dose: Not Given Atorvastatin Calcium (Lipitor -) 80 mg PO HS [facility] Last Admin: 01/22/19 23:16 Dose: 80 mg Calcium Acetate (Phoslo -) 667 mg PO TIDCM [facility] Last Admin: 01/23/19 08:06 Dose: Not Given Furosemide (Lasix -) 40 mg PO DAILY [facility] Last Admin: 01/23/19 09:18 Dose: Not Given Heparin Sodium (Porcine) (Heparin -) 5,000 unit SQ BID [facility] Last Admin: 01/23/19 09:17 Dose: Not Given Labetalol HCl (Normodyne -) 200 mg PO BID [facility] Last Admin: 01/23/19 09:16 Dose: 200 mg Phenytoin Sodium (Dilantin Oral Suspension -) 200 mg PO BID [facility] Last Admin: 01/22/19 23:16 Dose: 200 mg Sertraline HCl (Zoloft -) 50 mg PO DAILY [facility] Last Admin: 01/23/19 09:18 Dose: Not Given - Objective Vital Signs: Vital Signs Temperature 98.2 F 01/23/19 08:03 Pulse Rate 72 01/23/19 08:03 Respiratory Rate 16 01/23/19 08:03 Blood Pressure 178/77 H 01/23/19 08:03 O2 Sat by Pulse Oximetry (%) 98 01/22/19 21:00 Constitutional: Yes: Calm Eyes: Yes: Conjunctiva Clear HENT: Yes: Atraumatic Cardiovascular: Yes: S1, S2 Respiratory: Yes: CTA Bilaterally Gastrointestinal: Yes: Soft Genitourinary: Yes: Incontinence Musculoskeletal: Yes: WNL Edema: No Neurological: Yes: Pre-Existing Deficit Labs: CBC, BMP 01/22/19 05:20 01/22/19 05:20 INR, PTT INR 0.93 (0.83-1.09) 01/21/19 16:05 Assessment/Plan Current Medications Generic Name Dose Route Start Last Admin Trade Name Freq PRN Reason Stop Dose Admin Aspirin 81 mg 01/22/19 10:00 01/23/19 09:16 Asa - PO Not Given DAILY [facility] Atorvastatin Calcium 80 mg 01/21/19 22:00 01/22/19 23:16 Lipitor - PO 80 mg HS TYREE Administration Calcium Acetate 667 mg 01/22/19 08:00 01/23/19 08:06 Phoslo - PO Not Given TIDCM [facility] Furosemide 40 mg 01/22/19 10:00 01/23/19 09:18 Lasix - PO Not Given DAILY [facility] Heparin Sodium (Porcine) 5,000 unit 01/21/19 22:00 01/23/19 09:17 Heparin - SQ Not Given BID [facility] Labetalol HCl 200 mg 01/21/19 22:00 01/23/19 09:16 Normodyne - PO 200 mg BID [facility] Administration Phenytoin Sodium 200 mg 01/21/19 22:00 01/22/19 23:16 Dilantin Oral Suspension - PO 200 mg BID [facility] Administration Sertraline HCl 50 mg 01/22/19 10:00 01/23/19 09:18 Zoloft - PO Not Given DAILY [facility] Impression 1. ESRD 2. chol 3. hx CVA 4. HTN 5. access malfunction 6. epilepsy Plan - pt going for thrombectomy today - HD today - renal diet - cont lasix
[2019-01-23] MEDS ORDERED: SODIUM CHLORIDE 250 ML IV PRN ×2 (10:46→13:31)
[2019-01-23] MEDS ORDERED: EPOETIN ALFA 2,000 UNIT/1 ML VIAL IVPUSH ONE (10:46)
--- NOTE | 2019-01-23 10:46 | DS ---
Physical Examination Vital Signs: Vital Signs Temperature 98.2 F 01/23/19 08:03 Pulse Rate 72 01/23/19 08:03 Respiratory Rate 16 01/23/19 08:03 Blood Pressure 178/77 H 01/23/19 08:03 O2 Sat by Pulse Oximetry (%) 98 01/22/19 21:00 Constitutional: Yes: No Distress, Calm Cardiovascular: Yes: Regular Rate and Rhythm Respiratory: Yes: CTA Bilaterally Gastrointestinal: Yes: Normal Bowel Sounds, Soft. No: Tenderness Edema: No Labs: CBC, BMP 01/22/19 05:20 01/22/19 05:20 Discharge Summary Reason For Visit: MISSED DIALYIS/MALFUNCTION OF ARTERIOVENOUS Current Active Problems AV fistula occlusion (Acute) Hyperkalemia (Acute) Hospital Course: Admitted for malfunction AVF Seen by [facility]- Dr Talha Bansal pt to undergo thrombectomy and permacath placement-- will have dialysis afterwards stable for dc after dialysis Condition: Improved - Instructions Disposition: CARE HOME FACILITY - Home Medications Comprehensive Discharge Medication List: Ambulatory Orders Acetaminophen [Tylenol] 650 mg PO DAILY 09/20/18 Ascorbic Acid [Vitamin C] 500 mg PO DAILY 09/20/18 Aspirin 81 mg PO DAILY 09/20/18 Atorvastatin Ca [Lipitor] 80 mg PO HS 09/20/18 Calcium Acetate 667 mg PO TID 09/20/18 Furosemide [Lasix] 40 mg PO DAILY 09/20/18 Labetalol HCl [Normodyne -] 200 mg PO BID 09/20/18 Ondansetron [Zofran Odt -] 4 mg SL TID 09/20/18 Phenytoin Oral Suspension [Dilantin Oral Suspension 100 MG/4 ML] 200 mg PO BID 09/20/18 Sertraline HCl [Zoloft -] 50 mg PO DAILY 09/20/18 Vitamin B Comp W-C [Nephro-Masha -] 1 tablet PO DAILY 09/20/18 Heparin - 5,000 unit SQ TID vial 09/22/18
[2019-01-23] MEDS: PHENYTOIN ORAL SUSP 125 MG/5 ML PO SCH (11:05)
[2019-01-23] MEDS ORDERED: LIDOCAINE HCL/PF 2% SDV 5ML VIAL ONE (11:34)
[2019-01-23] MEDS ORDERED: ALTEPLASE 2 MG VIAL CVP ONE ×2 (11:45→13:31)
[2019-01-23] MEDS ORDERED: ceFAZolin SODIUM 1 GM VIAL IVPB ONE (11:50)
[2019-01-23] MEDS ORDERED: ceFAZolin SODIUM 1 GM VIAL ONE (11:52)
[2019-01-23] MEDS ORDERED: LIDOCAINE HCL 1%, 10 MG/ML (50 mL VIAL) IJ ONE (11:55)
[2019-01-23] MEDS ORDERED: ePHEDrine SULFATE 50 MG/1 ML AMPULE ONE (12:34)
--- NOTE | 2019-01-23 13:03 | OP ---
Operative Note - Note: Operative Date: 01/23/19 Pre-Operative Diagnosis: ESRD clotted right arm AVG Operation: right arm declot of brachial artery to axillary vein graft, venous angioplasty, central angioplasty Findings: axillary vein and central venous occlusion successfully treated with angioplasty Post-Operative Diagnosis: Same as Pre-op Surgeon: Talha Bansal Anesthesia: General Specimens Removed: none Estimated Blood Loss (mls): 50 Operative Report Dictated: Yes
[2019-01-23] MEDS ORDERED: LIDOCAINE HCL 2% 100 MG/5 ML DISP.SYRIN ONE (13:32)
[2019-01-23] MEDS ORDERED: ONDANSETRON 4 MG/2 ML VIAL IVPUSH PRN (13:43)
[2019-01-23] MEDS ORDERED: EPOETIN ALFA 3,000 UNIT/1 ML ML IVPUSH ONE (14:00)
--- NOTE | 2019-01-23 16:19 | OP ---
DATE OF OPERATION: 01/23/2019 PREOPERATIVE DIAGNOSIS: End-stage renal disease with clotted right arm arteriovenous graft. POSTOPERATIVE DIAGNOSIS: End-stage renal disease with clotted right arm arteriovenous graft. PROCEDURE PERFORMED: Percutaneous mechanical thrombectomy of right brachioaxillary graft, venous angioplasty, central venous angioplasty. SURGEON: Shae Abreu MD DIGITAL STRATEGY SPECIALIST: None. ESTIMATED BLOOD LOSS: 50 mL SPECIMEN: None. DESCRIPTION OF PROCEDURE: Patient was brought to the operating room. General anesthesia was induced with LMA. Patient's right arm was prepped and draped in the usual sterile fashion. Local anesthetic was infiltrated at the puncture site. Patient's arm was accessed using a micropuncture set. A 7-[place] sheath was inserted. The graft was laced with 6 mg of tissue plasminogen activator. This was allowed to dwell for 10 minutes. Percutaneous thrombectomy was then done with an AngioJet thrombectomy catheter. Graft was dilated throughout its course with an 8-mm balloon. Central venous stenosis was noticed on central venogram at the brachiocephalic vein origin and that was dilated with a 12-mm balloon. The graft was then accessed in retrograde fashion. Arterial plug was removed using an [id number] Светлана balloon. Selective angiography of the arm demonstrated in the brachial bifurcation and no stenosis at the arterial anastomosis. Of note, 3000 units of heparin were administered at the beginning of the procedure. A fistulogram was then obtained. This demonstrated residual stenosis at the central vein. This was then dilated with a 16-mm balloon. Repeat fistulogram demonstrated brisk flow centrally with mild residual stenosis. Wires and catheters were then removed. The access sites were closed using 3-0 Prolene. SHAE ABREU M.D. [id number]
[2019-01-23 16:23] LABS: HEMATOCRIT 24.9 % (35.4-49); HEMOGLOBIN 8.3 GM/dL (11.7-16.9); MCH 35.7 pg (25.7-33.7); MCHC 33.2 g/dl (32.0-35.9); MEAN CELL VOLUME 107.5 fl (80-96); MEAN PLT VOLUME 7.6 fl (7.5-11.1); PLATELET COUNT 195 K/MM3 (134-434); RBC 2.32 M/mm3 (4.00-5.60); RDW 16.2 % (11.9-15.9); WHITE BLOOD COUNT 5.1 K/mm3 (4.0-10.0)
[2019-01-23 16:49] LABS: ANION GAP 13 MMOL/L (8-16); BLOOD UREA NITROGEN 95 mg/dL (7-18); CALCIUM 8.1 mg/dL (8.5-10.1); CHLORIDE 102 mmol/L (98-107); CO2 24 mmol/L (21-32); GLUCOSE,RANDOM 94 mg/dL (74-106); POTASSIUM 4.3 mmol/L (3.5-5.1); SODIUM 138 mmol/L (136-145)
[2019-01-23 17:14] LABS: CREATININE 15.4 mg/dL (0.55-1.3)
[2019-01-23] MEDS ORDERED: CALCIUM ACETATE 667 MG CAPSULE (FP) PO SCH (17:30)
[2019-01-23 18:35] VITALS: TEMP 98.2
[2019-01-23 19:23] VITALS: BP 134/66; PULSE 80
[2019-01-23] MEDS ORDERED: ATORVASTATIN CA 80 MG TABLET (FP) PO SCH (22:00)
[2019-01-23] MEDS ORDERED: LABETALOL HCL 200 MG TABLET (FP) PO SCH (22:00)
[2019-01-23] MEDS ORDERED: PHENYTOIN ORAL SUSP 125 MG/5 ML PO SCH (22:00)
[2019-01-23] MEDS ORDERED: HEPARIN NA (PORCINE) 5,000 UNITS/ML 1ML VIAL SQ SCH (22:00)
[2019-01-24] MEDS ORDERED: ASPIRIN 81 MG CHEWABLE TABLETS PO SCH (10:00)
[2019-01-24] MEDS ORDERED: SERTRALINE HCL 50 MG TABLET (FP) PO SCH (10:00)
[2019-01-24] MEDS ORDERED: FUROSEMIDE 40 MG TABLET (FP) PO SCH (10:00)
[2019-01-25 12:20] LABS: HBSAG SCREEN Negative (Negative); HEP A AB, IGM Negative (Negative); HEP B CORE AB, TOT Positive (Negative)
== END 2019-01-23 20:26 | DRG 182 ==
LOC: JER 14:55 → JERBED 18:08 → J4W 01-22 13:29 → OBSVTOIN 01-22 14:39
PROVIDERS: ADMIT Internal Medicine; ATTEND Internal Medicine
PROC: 05793ZZ Dilation of Right Brachial Vein, Percutaneous Approach (ICD-10-PCS; 2019-01-23)
PROC: 3E03317 Introduction of Other Thrombolytic into Peripheral Vein, Percutaneous Approach (ICD-10-PCS; 2019-01-23)
PROC: 5A1D70Z Performance of Urinary Filtration, Intermittent, Less than 6 Hours Per Day (ICD-10-PCS; 2019-01-23)
PROC: 05C93ZZ Extirpation of Matter from Right Brachial Vein, Percutaneous Approach (ICD-10-PCS; principal; 2019-01-23 11:30)
DX: T82.868A Thrombosis due to vascular prosthetic devices, implants and grafts, initial encounter (principal); E46 Unspecified protein-calorie malnutrition; Y83.9 Surgical procedure, unspecified as the cause of abnormal reaction of the patient, or of later complication, without mention of misadventure at the time of the procedure; E87.5 Hyperkalemia; I12.0 Hypertensive chronic kidney disease with stage 5 chronic kidney disease or end stage renal disease; N18.6 End stage renal disease; Z99.2 Dependence on renal dialysis; G40.909 Epilepsy, unspecified, not intractable, without status epilepticus; E78.5 Hyperlipidemia, unspecified; I69.320 Aphasia following cerebral infarction
CPT/HCPCS: 36415; 71045-TC-FY; 76000-TC-FY; 80048; 80053; 80185; 82962; 83735; 83880; 85025; 85027; 85610; 85730; 86704; 86706; 86708; 86803; 86850; 86900; 86901; 87340; 93005; 93010; 93971; 94760; 99285-25; G0378; J0885; J1644

== ENCOUNTER 2019-03-08 17:26 | Inpatient (IN) | payer OTHER ==
--- NOTE | 2019-03-08 18:05 | PDOC ---
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 Per EMS report, he received acetaminophen prior to transport to the hospital. They did not receive any report of known symptoms. Felipe' mother is at bedside; she is also unaware of any symptoms other than poor appetite today. He was found to be febrile to 102F on arrival. Past History - Past Medical History Allergies/Adverse Reactions: Allergies Allergy/AdvReac Type Severity Reaction Status Date / Time No Known Allergies Allergy Verified 03/08/19 18:05 Home Medications: Ambulatory Orders Acetaminophen [Tylenol] 650 mg PO QID PRN 03/08/19 Aspirin 81 mg PO DAILY 03/08/19 Atorvastatin Calcium 80 mg PO HS 03/08/19 Calcium Acetate [Phoslo -] 667 mg PO TIDCM 03/08/19 Furosemide [Lasix] 40 mg PO DAILY 03/08/19 Heparin - 5,000 unit SQ BID 03/08/19 Labetalol HCl [Normodyne -] 200 mg PO BID 03/08/19 Phenytoin Oral Suspension [Dilantin Oral Suspension 100 MG/4 ML] 200 mg PO BID 03/08/19 Sertraline HCl [Zoloft -] 50 mg PO DAILY 03/08/19 Anemia: No CVA: Yes (X 2 WITH RESIDUAL WEAKNESS AND APHASIA.) COPD: No Diabetes: Yes Dialysis: Yes (-) HTN: Yes Hypercholesterolemia: Yes Kidney Stones: Yes Seizures: Yes - Suicide/Smoking/Psychosocial Hx Smoking History: Never smoked Have you smoked in the past 12 months: No Hx Alcohol Use: No Drug/Substance Use Hx: No Substance Use Type: None Hx Substance Use Treatment: No Review of Systems - Review of Systems Comments:: Patient nonverbal *Physical Exam - Physical Exam Comments: General: Mildly diaphoretic, appears stated age HEENT: PERRL, EOMI, MMM, atraumatic Cards: RRR, no murmur appreciated Pulm: Comfortable on room air, clear to auscultation bilaterally Abd: Soft, nontender, nondistended Ext: Atraumatic. No LE edema. BUE somewhat edematous. Notable atrophy in BLE Vasc: Extremities WWP. BUE AVF, both with palpable thrill Skin: Normal color, no rashes or lesions. 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 - Fever of unknown source currently - Sepsis orders sent including blood cultures, urine culture, CBC, CMP, lactate , trop, EKG, CXR, UA - IV acetaminophen for fever - No IVF as pt is ESRD, currently hypertensive, and has a HR in the 70-80's. Will continue to reassess and give fluids if needed 03/08/19 19:09 - Labs pending - Pt signed out to Dr Roy for the remainder of his ED care Discussed with Dr Landis. Liliana Renteria PGY1 *DC/Admit/Observation/Transfer Diagnosis at time of Disposition: Fever Qualifiers: Fever type: unspecified Qualified Code(s): R50.9 - Fever, unspecified - Referrals Referrals: Tip Gibbs MD [Primary Care Provider] - - Patient Instructions - Post Discharge Activity
[2019-03-08] MEDS ORDERED: ACETAMINOPHEN 1000 MG/100 ML VIAL (NON FORMULARY) IVPB ONE (18:06)
[2019-03-08] MEDS ORDERED: ACETAMINOPHEN INJECTION 100 ML IVPB ONE (18:19)
--- NOTE | 2019-03-08 18:29 | PDOC ---
Documentation entered by Josie Larson SCRIBE, acting as scribe for Davian Landis MD. Davian Landis MD: This documentation has been prepared by the [employer], SCRIBE, under my direction and personally reviewed by me in its entirety. I confirm that the documentation accurately reflects all work, treatment, procedures, and medical decision making performed by me. Attending Attestation - Resident Resident Name: Liliana Renteria - ED Attending Attestation I have performed the following: I have examined & evaluated the patient, The case was reviewed & discussed with the resident, I agree w/resident's findings & plan, Exceptions are as noted - HPI HPI: 03/08/19 18:12 The patient is a 53 year old male, from [facility], with a significant PMH of ESRD on HD MWF, Aphasia, CVA x2 with LE weakness, renal stones, HTN, and HLD who presents to the emergency department on BIBA with a rectal fever of 103 this morning. Pt is accompanied by mother who states his fever started today. She has not noticed any other symptoms. No cough, no vomiting, no diarrhea. Pt unable to contribute additional history. Allergies: NKDA Past surgical history: cervical discectomy PCP: Tip Toro - Physicial Exam PE: 03/08/19 18:27 "GENERAL: Awake, alert, in no acute distress. HEAD: No signs of trauma EYES: PERRLA, EOMI, sclera anicteric, conjunctiva clear ENT: Auricles normal inspection, hearing grossly normal, nares patent, oropharynx clear without exudates. Moist mucosa NECK: Nontender, no stepoffs, Normal ROM, supple, no lymphadenopathy, JVD, or masses LUNGS: Breath sounds equal, clear to auscultation bilaterally. No wheezes, and no crackles HEART: Regular rate and rhythm, normal S1 and S2, no murmurs, rubs or gallops ABDOMEN: Soft, nontender, normoactive bowel sounds. No guarding, no rebound. No masses EXTREMITIES: Normal range of motion, no edema. No clubbing or cyanosis. No cords, erythema, or tenderness SKIN: Warm, Dry, normal turgor, no rashes or lesions noted. - Medical Decision Making 03/08/19 18:28 53 M with fever, source unclear at this time. Will perform sepsis work up. - Labs, cultures - UA, CXR - Tylenol
[2019-03-08 18:45] LABS: VENOUS PC02 41.7 mmHg (41-51); VENOUS PH 7.42 (7.31-7.41); VENOUS PO2 59.3 mmHg (30-40)
[2019-03-08 18:46] LABS: INR 1.07 (0.83-1.09); PROTHROMBIN TIME (PATIENT) 12.6 SEC (9.7-13.0)
[2019-03-08 18:48] LABS: ACTIVATED PTT 33.1 SECONDS (25.2-36.5)
[2019-03-08 18:56] LABS: BASO % 0.8 % (0-2.0); EOS % 0.1 % (0-4.5); HEMATOCRIT 37.1 % (35.4-49); HEMOGLOBIN 12.1 GM/dL (11.7-16.9); LYMPH % 5.7 % (8-40); MCH 33.8 pg (25.7-33.7); MCHC 32.8 g/dl (32.0-35.9); MEAN CELL VOLUME 103.2 fl (80-96); MONO % 7.9 % (3.8-10.2); NEUT % 85.5 % (42.8-82.8); RBC 3.59 M/mm3 (4.00-5.60); RDW 14.6 % (11.9-15.9); WHITE BLOOD COUNT 7.1 K/mm3 (4.0-10.0)
--- NOTE | 2019-03-08 19:11 | PDOC ---
*Physical Exam - Vital Signs Last Vital Signs Temp Pulse Resp BP Pulse Ox 102.7 F H 89 17 194/55 H 100 03/08/19 18:09 03/08/19 18:09 03/08/19 18:09 03/08/19 18:09 03/08/19 18:33 ED Treatment Course - LABORATORY CBC & Chemistry Diagram: 03/11/19 07:10 03/11/19 10:45 - ADDITIONAL ORDERS Additional order review: Laboratory Results 03/08/19 03/08/19 03/08/19 18:10 18:10 18:10 PT with INR 12.60 INR 1.07 PTT (Actin FS) 33.1 Lactic Acid 1.0 Troponin I Cancelled 03/08/19 18:10 RBC 3.59 L MCV 103.2 H MCHC 32.8 RDW 14.6 MPV 8.0 Neutrophils % 85.5 H D Lymphocytes % 5.7 L D Monocytes % 7.9 Eosinophils % 0.1 D Basophils % 0.8 - Medications Given in the ED: ED Medications Discontinued Medications Generic Name Dose Route Start Last Admin Trade Name Cr PRN Reason Stop Dose Admin Acetaminophen 1,000 mg 03/08/19 18:06 03/08/19 18:25 Ofirmev Injection - IVPB 03/08/19 18:07 1,000 mg ONCE ONE Administration Medical Decision Making - Medical Decision Making 03/08/19 19:09 Pt signed out to me by Dr. Renteria. See Dr. Renteria's note. 53 year old male with PMH of ESRD (on HD M/W/F), nonverbal (2/2 anterior cervical discectomy fusion and plating done in the [place] 2014), HTN , HLD, CVA x2 (2011, 2009) BIBA to ED for fever of 102F. Pt is unable to provide history. Per Dr. Renteria pt had dialysis today. Initial Vital Signs Temp Pulse Resp BP Pulse Ox 102.2 F H 99 H 16 194/55 H 100 03/08/19 17:38 03/08/19 17:38 03/08/19 17:38 03/08/19 17:38 03/08/19 17:38 Afebrile. Borderline tachycardia. No tachypnea. Hypertensive. No hypoxia on room air. CBC WBC 7.1 K/mm3 (4.0-10.0) 03/08/19 18:10 RBC 3.59 M/mm3 (4.00-5.60) L 03/08/19 18:10 Hgb 12.1 GM/dL (11.7-16.9) 03/08/19 18:10 Hct 37.1 % (35.4-49) D 03/08/19 18:10 MCV 103.2 fl (80-96) H 03/08/19 18:10 MCH 33.8 pg (25.7-33.7) H 03/08/19 18:10 MCHC 32.8 g/dl (32.0-35.9) 03/08/19 18:10 RDW 14.6 % (11.9-15.9) 03/08/19 18:10 MPV 8.0 fl (7.5-11.1) 03/08/19 18:10 Absolute Neuts (auto) 6.1 K/mm3 (1.5-8.0) 03/08/19 18:10 Neutrophils % 85.5 % (42.8-82.8) H D 03/08/19 18:10 Lymphocytes % 5.7 % (8-40) L D 03/08/19 18:10 Monocytes % 7.9 % (3.8-10.2) 03/08/19 18:10 Eosinophils % 0.1 % (0-4.5) D 03/08/19 18:10 Basophils % 0.8 % (0-2.0) 03/08/19 18:10 Nucleated RBC % 0 % (0-0) 03/08/19 18:10 No leukocytosis. No left shift. No anemia. CMP Lactic Acid 1.0 mmol/L (0.4-2.0) 03/08/19 18:10 No lactic acidosis. Pending CMP, UA, CXR report, influenza A/B testing. CXR my and Dr. Landis's read: no infiltrate -Pending official report Medications given: Tylenol IV Medications ordered: vancomycin, zosyn 03/08/19 19:23 CMP Sodium 134 mmol/L (136-145) L 03/08/19 18:10 Potassium 4.4 mmol/L (3.5-5.1) 03/08/19 18:10 Chloride 95 mmol/L (98-107) L 03/08/19 18:10 Carbon Dioxide 26 mmol/L (21-32) 03/08/19 18:10 Anion Gap 14 MMOL/L (8-16) 03/08/19 18:10 BUN 59.7 mg/dL (7-18) H 03/08/19 18:10 Creatinine 8.1 mg/dL (0.55-1.3) H* 03/08/19 18:10 Est GFR (CKD-EPI)AfAm 7.91 03/08/19 18:10 Est GFR (CKD-EPI)NonAf 6.82 03/08/19 18:10 Random Glucose 122 mg/dL (74-106) H 03/08/19 18:10 Lactic Acid 1.0 mmol/L (0.4-2.0) 03/08/19 18:10 Calcium 8.4 mg/dL (8.5-10.1) L 03/08/19 18:10 Total Bilirubin 0.3 mg/dL (0.2-1) 03/08/19 18:10 AST 104 U/L (15-37) H 03/08/19 18:10 ALT 81 U/L (13-61) H 03/08/19 18:10 Alkaline Phosphatase 246 U/L (45-117) H 03/08/19 18:10 Troponin I 0.04 ng/ml (0.00-0.05) 03/08/19 18:10 Total Protein 7.0 g/dl (6.4-8.2) 03/08/19 18:10 Albumin 3.2 g/dl (3.4-5.0) L 03/08/19 18:10 Mild hyponatremia. CKD. Troponin wnl. Mild transaminitis. 03/08/19 19:30 Official CXR report: A single AP view of the chest has been submitted. Since , there is no change of an adverse nature and no sign of an acute process. There is lower cervical spine fusion. Tubing projects over the right apex. Correlation recommended. Reported By: Anthony Tian MD 03/08/19 1909 03/08/19 19:43 Vital Signs Pulse Rate 89 03/08/19 19:42 Respiratory Rate 16 03/08/19 19:42 Blood Pressure 127/49 L 03/08/19 19:42 O2 Sat by Pulse Oximetry (%) 94 L 03/08/19 19:42 Tachycardia improved with Tylenol administration. Hypertension improving. 03/08/19 20:16 Influenza A/B testing negative. 03/08/19 21:13 Urine Test Results Urine Color Yellow 03/08/19 20:00 Urine Appearance Clear 03/08/19 20:00 Urine pH 7.5 (5.0-8.0) D 03/08/19 20:00 Ur Specific [place] 1.012 (1.010-1.035) 03/08/19 20:00 Urine Protein 3+ (NEGATIVE) H 03/08/19 20:00 Urine Glucose (UA) Negative (NEGATIVE) 03/08/19 20:00 Urine Ketones Negative (NEGATIVE) 03/08/19 20:00 Urine Blood Trace (NEGATIVE) 03/08/19 20:00 Urine Nitrite Negative (NEGATIVE) 03/08/19 20:00 Urine Bilirubin Negative (NEGATIVE) 03/08/19 20:00 Ur Leukocyte Esterase Trace (NEGATIVE) 03/08/19 20:00 WBC <5. No UTI. Pt to be admitted for fever of unknown origin. Pending admission. 03/08/19 21:38 I spoke with KENNEL WORKER Hosea about the patient, pt to be admitted under Dr. Gibbs's care. *DC/Admit/Observation/Transfer Diagnosis at time of Disposition: Fever Qualifiers: Fever type: unspecified Qualified Code(s): R50.9 - Fever, unspecified - Discharge Dispostion Condition at time of disposition: Stable Decision to Admit order: Yes - Referrals - Patient Instructions - Post Discharge Activity
[2019-03-08 19:12] LABS: ALBUMIN 3.2 g/dl (3.4-5.0); BILIRUBIN,TOTAL 0.3 mg/dL (0.2-1); BLOOD UREA NITROGEN 59.7 mg/dL (7-18); CALCIUM 8.4 mg/dL (8.5-10.1); POTASSIUM 4.4 mmol/L (3.5-5.1)
[2019-03-08 19:17] LABS: CREATININE 8.1 mg/dL (0.55-1.3)
[2019-03-08] MEDS ORDERED: VANCOMYCIN 1,000 MG in DEXTROSE 5%-WATER - 250 ML IVPB ONE (19:21)
[2019-03-08] MEDS ORDERED: PIPERACILLIN/TAZOB 4.5 GM 4.5 GM in DEXTROSE 5%-WATER 100 ML IVPB ONE (19:22)
[2019-03-08 19:29] LABS: PLATELET COUNT 96 K/MM3 (134-434); PLATELET ESTIMATE DECREASED
[2019-03-08] MEDS ORDERED: PIPERACILLIN/TAZOB 4.5 GM 4.5 GM/100 ML BAG IVPB ONE (19:30)
[2019-03-08] MEDS ORDERED: VANCOMYCIN 1 GRAM (PRE-DOCKED) 1,000 MG/250 ML BAG IVPB ONE (19:30)
[2019-03-08 21:09] LABS: EPI CELLS 1.2 /HPF (0-5/HPF); HYALINE CASTS 0 /lpf (0-8); PH,URINE 7.5 (5.0-8.0); URINE APPEARANCE CLEAR; URINE BACTERIA 5.4 /hpf (NEGATIVE); URINE BILIRUBIN NEGATIVE (NEGATIVE); URINE COLOR YELLOW; URINE GLUCOSE (UA) NEGATIVE (NEGATIVE); URINE KETONE NEGATIVE (NEGATIVE); URINE LEUK ESTERASE TRACE (NEGATIVE); URINE NITRITE NEGATIVE (NEGATIVE); URINE PROTEIN 3+ (NEGATIVE); URINE RBC 4 /hpf (0-4); URINE UROBILINOGEN 0.2 mg/dL (0.2-1.0); URINE WBC 2 /hpf (0-5)
--- NOTE | 2019-03-08 22:07 | HP ---
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 Per EMS report, he received acetaminophen prior to transport to the hospital. They did not receive any report of known symptoms. In ED temp 102, pt seen in ED, no family at bedside, pt non-verbal, NAD, no grimacing noted. Right AV fistula with dry bloody gauze, taped. 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, aphagia, ESRD on HD (MWF) via LUE AVF, HTN, HLD PAST SURGICAL HISTORY: Social History: Smoking:never Alcohol:never Drugs: never Family History: Allergies No Known Allergies Allergy (Verified 03/08/19 18:05) HOME MEDICATIONS: Home Medications Medication Instructions Recorded Acetaminophen [Tylenol] 650 mg PO QID PRN 03/08/19 Aspirin 81 mg PO DAILY 03/08/19 Atorvastatin Calcium 80 mg PO HS 03/08/19 Calcium Acetate [Phoslo -] 667 mg PO TIDCM 03/08/19 Furosemide [Lasix] 40 mg PO DAILY 03/08/19 Heparin - 5,000 unit SQ BID 03/08/19 Labetalol HCl [Normodyne -] 200 mg PO BID 03/08/19 Phenytoin Oral Suspension 200 mg PO BID 03/08/19 [Dilantin Oral Suspension 100 MG/4 ML] Sertraline HCl [Zoloft -] 50 mg PO DAILY 03/08/19 REVIEW OF SYSTEMS Unable to assess, pt non-verbal PHYSICAL EXAMINATION Vital Signs - 24 hr 03/08/19 03/08/19 03/08/19 17:38 18:09 18:33 Temperature 102.2 F H 102.7 F H Pulse Rate 99 H Pulse Rate [ 89 Right Radial] Respiratory 16 17 Rate Blood Pressure 194/55 H Blood Pressure 194/55 H [Left Arm] O2 Sat by Pulse 100 98 100 Oximetry (%) 03/08/19 03/08/19 03/08/19 19:42 20:10 21:18 Temperature 101.9 F H Pulse Rate Pulse Rate [ 89 80 Right Radial] Respiratory 16 16 Rate Blood Pressure Blood Pressure 127/49 L 172/55 H [Left Arm] O2 Sat by Pulse 94 L 100 Oximetry (%) GENERAL: Awake, alert, non-verbal HEAD: Normal with no signs of trauma. EYES: Pupils equal, round and reactive to light, extraocular movements intact, sclera anicteric, conjunctiva clear. No lid lag. EARS, NOSE, THROAT: Ears normal, nares patent, oropharynx clear without exudates. Moist mucous membranes. NECK: Normal range of motion, supple without lymphadenopathy, JVD, or masses. LUNGS: Breath sounds equal, clear to auscultation bilaterally. No wheezes, and no crackles. No accessory muscle use. HEART: Regular rate and rhythm, normal S1 and S2 without murmur, rub or gallop. ABDOMEN: Soft, nontender, not distended, normoactive bowel sounds, no guarding, no rebound, no masses. No hepatomegaly or splenomegaly. MUSCULOSKELETAL: Normal range of motion at all joints. No bony deformities or tenderness. BLE muscular atrophy UPPER EXTREMITIES: Left AVF, Right AV fisulta, 2+ pulses, warm, well-perfused. No cyanosis. No clubbing. No peripheral edema. LOWER EXTREMITIES: 2+ pulses, warm, well-perfused. No calf tenderness. No peripheral edema. NEUROLOGICAL: Cranial nerves II-XII intact. PSYCHIATRIC: Cooperative. Good eye contact. Appropriate mood and affect. SKIN: Warm, dry, normal turgor, no rashes or lesions noted, normal capillary refill. Laboratory Results - last 24 hr 03/08/19 03/08/19 03/08/19 18:10 18:10 18:10 WBC 7.1 RBC 3.59 L Hgb 12.1 Hct 37.1 D MCV 103.2 H MCH 33.8 H MCHC 32.8 RDW 14.6 Plt Count 96 L D MPV 8.0 Absolute Neuts (auto) 6.1 Neutrophils % 85.5 H D Lymphocytes % 5.7 L D Monocytes % 7.9 Eosinophils % 0.1 D Basophils % 0.8 Nucleated RBC % 0 Platelet Estimate Decreased Platelet Comment No clumping noted PT with INR 12.60 INR 1.07 PTT (Actin FS) 33.1 Sodium 134 L Potassium 4.4 Chloride 95 L Carbon Dioxide 26 Anion Gap 14 BUN 59.7 H Creatinine 8.1 H* Est GFR (CKD-EPI)AfAm 7.91 Est GFR (CKD-EPI)NonAf 6.82 Random Glucose 122 H Lactic Acid Calcium 8.4 L Total Bilirubin 0.3 AST 104 H ALT 81 H Alkaline Phosphatase 246 H Troponin I 0.04 Total Protein 7.0 Albumin 3.2 L Urine Color Urine Appearance Urine pH Ur Specific Sigel Urine Protein Urine Glucose (UA) Urine Ketones Urine Blood Urine Nitrite Urine Bilirubin Urine Urobilinogen Ur Leukocyte Esterase Urine WBC (Auto) Urine RBC (Auto) Urine Casts (Auto) U Epithel Cells (Auto) Urine Bacteria (Auto) Influenza A (Rapid) Influenza B (Rapid) Blood Type Antibody Screen 03/08/19 03/08/19 03/08/19 18:10 18:10 18:20 WBC RBC Hgb Hct MCV MCH MCHC RDW Plt Count MPV Absolute Neuts (auto) Neutrophils % Lymphocytes % Monocytes % Eosinophils % Basophils % Nucleated RBC % Platelet Estimate Platelet Comment PT with INR INR PTT (Actin FS) Sodium Potassium Chloride Carbon Dioxide Anion Gap BUN Creatinine Est GFR (CKD-EPI)AfAm Est GFR (CKD-EPI)NonAf Random Glucose Lactic Acid 1.0 Calcium Total Bilirubin AST ALT Alkaline Phosphatase Troponin I Cancelled Total Protein Albumin Urine Color Urine Appearance Urine pH Ur Specific Sigel Urine Protein Urine Glucose (UA) Urine Ketones Urine Blood Urine Nitrite Urine Bilirubin Urine Urobilinogen Ur Leukocyte Esterase Urine WBC (Auto) Urine RBC (Auto) Urine Casts (Auto) U Epithel Cells (Auto) Urine Bacteria (Auto) Influenza A (Rapid) Influenza B (Rapid) Blood Type A POSITIVE Antibody Screen Negative 03/08/19 03/08/19 19:45 20:00 WBC RBC Hgb Hct MCV MCH MCHC RDW Plt Count MPV Absolute Neuts (auto) Neutrophils % Lymphocytes % Monocytes % Eosinophils % Basophils % Nucleated RBC % Platelet Estimate Platelet Comment PT with INR INR PTT (Actin FS) Sodium Potassium Chloride Carbon Dioxide Anion Gap BUN Creatinine Est GFR (CKD-EPI)AfAm Est GFR (CKD-EPI)NonAf Random Glucose Lactic Acid Calcium Total Bilirubin AST ALT Alkaline Phosphatase Troponin I Total Protein Albumin Urine Color Yellow Urine Appearance Clear Urine pH 7.5 D Ur Specific Sigel 1.012 Urine Protein 3+ H Urine Glucose (UA) Negative Urine Ketones Negative Urine Blood Trace Urine Nitrite Negative Urine Bilirubin Negative Urine Urobilinogen 0.2 Ur Leukocyte Esterase Trace Urine WBC (Auto) 2 Urine RBC (Auto) 4 Urine Casts (Auto) 0 U Epithel Cells (Auto) 1.2 Urine Bacteria (Auto) 5.4 Influenza A (Rapid) Negative Influenza B (Rapid) Negative Blood Type Antibody Screen ASSESSMENT/PLAN: Felipe Hamilton is a 53yo man with a PMH of 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, aphagia, ESRD on HD ([facility]) via LUE AVF, HTN, HLD admitted for Admitting Diagnosis Fever of Unknown origin Chronic Problems CVA w/ residual LE weakness Aphasia ESRD ([facility]) HTN HLD A/P: #Fever of unknown origin -temp 102 -no Leuko, lactic wnl -received IV vanco, zosyn in ED -UA neg, -chest xray no acute process, no change from previous xray -blood, urine cx in process -ID consult -Tylenol prn for fever -Influenza neg -no s/s of infection at fistula sites -CT abd/pelvis/chest in AM if still febrile #Hyponatremia-mild -Na 134 -no fluids, ESRD #ESRD -HD ([facility]) -received HD today -Creat 8.1 -renal consult Dr. Naranjo -BUE fistula, s/p thrombectomy R AVF and permacath placement #CVA w/residual LE weakness x2 -on ASA, Statin #HTN #HLD -BP hypertensive in ED, trending down -c/w labetalol, lasix #Seizure disorder -c/w Dilantin -seizure precautions #Depression,chronic -on zoloft Full Code Dispo: requires inpatient tx - Visit type - Emergency Visit Emergency Visit: Yes Care time: The patient presented to the Emergency Department on the above date and was hospitalized for further evaluation of their emergent condition. - New Patient This patient is new to me today: Yes Date on this admission: 03/08/19 - Critical Care Critical Care patient: No
[2019-03-08] MEDS ORDERED: LABETALOL HCL 100 MG TABLET (FP) ONE (22:18)
[2019-03-08] MEDS: HEPARIN NA (PORCINE) 5,000 UNITS/ML 1ML VIAL SQ SCH (22:33)
[2019-03-08] MEDS: PHENYTOIN 100 MG/4 ML U-D CUP PO SCH (22:34)
[2019-03-08] MEDS: LABETALOL HCL 200 MG TABLET (FP) PO SCH (22:34)
[2019-03-09] MEDS ORDERED: ACETAMINOPHEN 650 MG SUPP.RECT PR ONE (00:05)
[2019-03-09] MEDS ORDERED: PHENYTOIN SODIUM 100 MG/2 ML VIAL IVPB ONE (00:13)
[2019-03-09] MEDS: CALCIUM ACETATE 667 MG CAPSULE (FP) PO SCH ×3 (08:39→17:08)
--- NOTE | 2019-03-09 08:47 | EKG ---
Test Reason : Blood Pressure : / mmHG Vent. Rate : 088 BPM Atrial Rate : 088 BPM P-R Int : 134 ms QRS Dur : 078 ms QT Int : 368 ms P-R-T Axes : 074 045 042 degrees QTc Int : 445 ms POOR DATA QUALITY, INTERPRETATION MAY BE ADVERSELY AFFECTED NORMAL SINUS RHYTHM NORMAL ECG WHEN COMPARED WITH ECG OF 21-JAN-2019 16:34, NO SIGNIFICANT CHANGE WAS FOUND Confirmed by JAMILAH AGARWAL, PRIETO ([id number]) on 03/09/2019 8:46:45 AM Referred By: Confirmed By:PRIETO ASKEW MD
[2019-03-09 11:21] LABS: HEMOGLOBIN 11.4 GM/dL (11.7-16.9); MCH 34.2 pg (25.7-33.7); MCHC 33.5 g/dl (32.0-35.9); MEAN PLT VOLUME 8.6 fl (7.5-11.1); RBC 3.33 M/mm3 (4.00-5.60); WHITE BLOOD COUNT 5.8 K/mm3 (4.0-10.0)
[2019-03-09] MEDS: LABETALOL HCL 200 MG TABLET (FP) PO SCH ×2 (11:29→21:42)
[2019-03-09] MEDS: SERTRALINE HCL 50 MG TABLET (FP) PO SCH (11:29)
[2019-03-09] MEDS: FUROSEMIDE 40 MG TABLET (FP) PO SCH (11:29)
[2019-03-09] MEDS: ASPIRIN 81 MG CHEWABLE TABLETS PO SCH (11:29)
[2019-03-09] MEDS: HEPARIN NA (PORCINE) 5,000 UNITS/ML 1ML VIAL SQ SCH ×2 (11:30→21:42)
--- NOTE | 2019-03-09 11:51 | PN ---
Progress Note (short form) - Note Progress Note: pt seen/ examined send by me from [facility] --2 to fever given abx in er +ve cultures looks better than yesterday. Vital Signs Temp 98.4 F 03/09/19 09:05 Pulse 75 03/09/19 09:05 Resp 19 03/09/19 09:05 BP 128/59 L 03/09/19 09:05 Pulse Ox 100 03/08/19 23:30 Intake & Output 03/08/19 03/08/19 03/09/19 11:59 23:59 11:59 Intake Total 100 Balance 100 Weight 119 lb Intake: IVPB 100 Other: Voiding Method Incontinent # Unmeasured Voids Void 0 Bowel Movement No Height 5 ft 7 in Body Mass Index (BMI) 18.6 Weight Measurement Method Patient Lift Scale Active Medications Acetaminophen (Tylenol -) 650 mg PO Q4H PRN PRN Reason: FEVER Aspirin (Asa -) 81 mg PO DAILY [facility] Last Admin: 03/09/19 11:29 Dose: 81 mg Atorvastatin Calcium (Lipitor -) 80 mg PO HS [facility] Calcium Acetate (Phoslo -) 667 mg PO TIDCM [facility] Last Admin: 03/09/19 11:30 Dose: 667 mg Furosemide (Lasix -) 40 mg PO DAILY [facility] Last Admin: 03/09/19 11:29 Dose: 40 mg Heparin Sodium (Porcine) (Heparin -) 5,000 unit SQ BID [facility] Last Admin: 03/09/19 11:30 Dose: 5,000 unit Vancomycin HCl 1,000 mg/ (Dextrose) 250 mls @ 166.667 mls/hr IVPB ONCE ONE; Protocol Stop: 03/09/19 13:16 Labetalol HCl (Normodyne -) 200 mg PO BID [facility] Last Admin: 03/09/19 11:29 Dose: 200 mg Phenytoin Sodium (Dilantin Oral Suspension -) 200 mg PO BID [facility] Last Admin: 03/08/19 22:34 Dose: Not Given Sertraline HCl (Zoloft -) 50 mg PO DAILY [facility] Last Admin: 03/09/19 11:29 Dose: 50 mg CBC, BMP 03/09/19 11:00 Microbiology 03/08/19 18:10 Blood Culture - Preliminary Blood - Peripheral Venous Pending Organism 03/08/19 18:10 Blood Culture - Preliminary Blood - Peripheral Venous Pending Organism Physical Exam S1 S2 Lungs -- diminished abd- soft no edema neuro- pre- existing defecits PLAN sepsis esrd- hd h/o cva abx got vanco f/u cultures dilaysis per renal will follow Problem List - Problems (1) Fever Code(s): R50.9 - FEVER, UNSPECIFIED Qualifiers: Fever type: unspecified Qualified Code(s): R50.9 - Fever, unspecified (2) Acute metabolic encephalopathy Code(s): G93.41 - METABOLIC ENCEPHALOPATHY (3) CVA, old, aphasia Code(s): I69.320 - APHASIA FOLLOWING CEREBRAL INFARCTION (4) ESRD (end stage renal disease) on dialysis Code(s): N18.6 - END STAGE RENAL DISEASE; Z99.2 - DEPENDENCE ON RENAL DIALYSIS
[2019-03-09] MEDS ORDERED: VANCOMYCIN 1 GRAM (PRE-DOCKED) 1,000 MG/250 ML BAG IVPB ONE (12:00)
[2019-03-09 12:09] LABS: ALBUMIN 2.8 g/dl (3.4-5.0); BILIRUBIN,TOTAL 0.4 mg/dL (0.2-1); BLOOD UREA NITROGEN 76.4 mg/dL (7-18); CALCIUM 7.6 mg/dL (8.5-10.1); POTASSIUM 4.6 mmol/L (3.5-5.1); TOT PROT 6.5 g/dl (6.4-8.2)
[2019-03-09] MEDS: PHENYTOIN 100 MG/4 ML U-D CUP PO SCH ×2 (12:53→21:42)
[2019-03-09 12:54] LABS: CREATININE 9.3 mg/dL (0.55-1.3)
[2019-03-09] MEDS ORDERED: SODIUM CHLORIDE 250 ML IV PRN ×2 (13:06→13:07)
--- NOTE | 2019-03-09 13:06 | CONSULT ---
Consult Consult Specialty:: Nephrology Reason for Consultation:: ESRD - History of Present Illness Chief Complaint: sent in for fever History of Present Illness: Pt is a 53 year old make with pmhx of esrd on HD, aphasia, cva, nephrolithiasis , htn, and hld who was sent in from the [place] for fever. He is unable to give history. I called his HD unit for the prescription. He is in bed but not as interactive as he normally is. he was noted to have positive blood cultures. He is due for HD today. He did not have any vomiting or diarrhea. 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 (APHASIA) Cardio/Vascular: Yes: HTN Renal/: Yes: Renal Failure, Hemodialysis - Past Surgical History Past Surgical History: Yes: Carotid Endarterectomy - Alcohol/Substance Use Hx Alcohol Use: No - Smoking History Smoking history: Unknown if ever smoked Have you smoked in the past 12 months: No Home Medications - Allergies Allergies/Adverse Reactions: Allergies Allergy/AdvReac Type Severity Reaction Status Date / Time No Known Allergies Allergy Verified 03/08/19 18:05 - Home Medications Home Medications: Ambulatory Orders Acetaminophen [Tylenol] 650 mg PO QID PRN 03/08/19 Aspirin 81 mg PO DAILY 03/08/19 Atorvastatin Calcium 80 mg PO HS 03/08/19 Calcium Acetate [Phoslo -] 667 mg PO TIDCM 03/08/19 Furosemide [Lasix] 40 mg PO DAILY 03/08/19 Heparin - 5,000 unit SQ BID 03/08/19 Labetalol HCl [Normodyne -] 200 mg PO BID 03/08/19 Phenytoin Oral Suspension [Dilantin Oral Suspension 100 MG/4 ML] 200 mg PO BID 03/08/19 Sertraline HCl [Zoloft -] 50 mg PO DAILY 03/08/19 Family Disease History - Family Disease History Family Disease History: Other: Sister (alive and well) Review of Systems Unable to obtain ROS, reason: pt lethargic Physical Exam Vital Signs: Vital Signs Temperature 98.4 F 03/09/19 09:05 Pulse Rate 75 03/09/19 09:05 Respiratory Rate 19 03/09/19 09:05 Blood Pressure 128/59 L 03/09/19 09:05 O2 Sat by Pulse Oximetry (%) 97 03/09/19 11:25 Constitutional: Yes: Calm Eyes: Yes: Conjunctiva Clear HENT: Yes: Atraumatic Neck: Yes: Supple Cardiovascular: Yes: S1, S2 Respiratory: Yes: CTA Bilaterally Gastrointestinal: Yes: Soft Renal/: Yes: Incontinence Musculoskeletal: Yes: Muscle Weakness Edema: Yes Edema: LLE: 1+, RLE: 1+ Neurological: Yes: Lethargy Labs: CBC, BMP 03/09/19 11:00 03/09/19 11:00 Microbiology 03/08/19 18:10 Blood - Peripheral Venous Blood Culture - Preliminary Pending Organism 03/08/19 18:10 Blood - Peripheral Venous Blood Culture - Preliminary Pending Organism Laboratory Tests 03/08/19 03/09/19 18:10 11:00 Sodium 134 L 131 L Potassium 4.6 BUN 76.4 H Creatinine 8.1 H* 9.3 H* Imaging - Results Chest X-ray: Report Reviewed Problem List - Problems (1) Fever Code(s): R50.9 - FEVER, UNSPECIFIED Qualifiers: Fever type: unspecified Qualified Code(s): R50.9 - Fever, unspecified (2) ESRD (end stage renal disease) on dialysis Code(s): N18.6 - END STAGE RENAL DISEASE; Z99.2 - DEPENDENCE ON RENAL DIALYSIS Assessment/Plan Current Medications Generic Name Dose Route Start Last Admin Trade Name Freq PRN Reason Stop Dose Admin Acetaminophen 650 mg 03/08/19 22:46 Tylenol - PO Q4H PRN FEVER Aspirin 81 mg 03/09/19 10:00 03/09/19 11:29 Asa - PO 81 mg DAILY TYREE Administration Atorvastatin Calcium 80 mg 03/09/19 22:00 Lipitor - PO HS TYREE Calcium Acetate 667 mg 03/09/19 08:00 03/09/19 11:30 Phoslo - PO 667 mg TIDCM TYREE Administration Furosemide 40 mg 03/09/19 10:00 03/09/19 11:29 Lasix - PO 40 mg DAILY TYREE Administration Heparin Sodium (Porcine) 5,000 unit 03/08/19 22:00 03/09/19 11:30 Heparin - SQ 5,000 unit BID TYREE Administration Vancomycin HCl 1,000 mg in 250 mls @ 166.667 mls/hr 03/09/19 12:00 03/09/19 12:53 Vancomycin (Pre-Docked) IVPB 03/09/19 13:29 166.667 mls/hr ONCE ONE Administration Protocol Labetalol HCl 200 mg 03/08/19 22:15 03/09/19 11:29 Normodyne - PO 200 mg BID TYREE Administration Phenytoin Sodium 200 mg 03/08/19 22:15 03/09/19 12:53 Dilantin Oral Suspension - PO 200 mg BID TYREE Administration Sertraline HCl 50 mg 03/09/19 10:00 03/09/19 11:29 Zoloft - PO 50 mg DAILY TYREE Administration Impression 1. ESRD 2. chol 3. hx CVA 4. HTN 5. fever 6. epilepsy 7. bacteremia Plan - will arrange for HD - HD 3:30 2 k bath, 1000 heparin bolus 500 per hr, right arm AVF - follow cultures - abx per primary team - unclear source - ID eval
[2019-03-09] MEDS ORDERED: HEPARIN NA (PORCINE) 5,000 UNITS/ML 1ML VIAL IVPUSH ONE (13:07)
[2019-03-09 16:54] LABS: PLATELET COUNT 148 K/MM3 (134-434)
--- NOTE | 2019-03-09 20:31 | PN ---
Progress Note (short form) - Note Progress Note: ID CONSULT DICTATED +BC GPCCL R/O STAPH SEPSIS ESRD AWAIT BC EMPIRIC VANCOMYCIN
[2019-03-09] MEDS ORDERED: PT OWN MED DRAWER 7, Y5N ONE (21:37)
[2019-03-09] MEDS: ATORVASTATIN CA 80 MG TABLET (FP) PO SCH (21:42)
[2019-03-10] MEDS: CALCIUM ACETATE 667 MG CAPSULE (FP) PO SCH ×3 (08:11→17:46)
[2019-03-10] MEDS ORDERED: PT OWN MED DRAWER 7, Y5N ONE ×2 (10:02→11:36)
[2019-03-10] MEDS: FUROSEMIDE 40 MG TABLET (FP) PO SCH (11:46)
[2019-03-10] MEDS: ASPIRIN 81 MG CHEWABLE TABLETS PO SCH (11:47)
[2019-03-10] MEDS: HEPARIN NA (PORCINE) 5,000 UNITS/ML 1ML VIAL SQ SCH ×2 (11:47→21:33)
[2019-03-10] MEDS: LABETALOL HCL 200 MG TABLET (FP) PO SCH ×2 (11:47→21:32)
[2019-03-10] MEDS: SERTRALINE HCL 50 MG TABLET (FP) PO SCH (11:47)
[2019-03-10] MEDS: PHENYTOIN 100 MG/4 ML U-D CUP PO SCH ×2 (11:47→21:33)
--- NOTE | 2019-03-10 12:59 | PN ---
Progress Note, Physician History of Present Illness: Pt seen and examined at bedside. He is more awake today. - Current Medication List Current Medications: Active Medications Acetaminophen (Tylenol -) 650 mg PO Q4H PRN PRN Reason: FEVER Aspirin (Asa -) 81 mg PO DAILY [facility] Last Admin: 03/10/19 11:47 Dose: 81 mg Atorvastatin Calcium (Lipitor -) 80 mg PO HS [facility] Last Admin: 03/09/19 21:42 Dose: 80 mg Calcium Acetate (Phoslo -) 667 mg PO TIDCM [facility] Last Admin: 03/10/19 11:46 Dose: 667 mg Furosemide (Lasix -) 40 mg PO DAILY [facility] Last Admin: 03/10/19 11:46 Dose: 40 mg Heparin Sodium (Porcine) (Heparin -) 5,000 unit SQ BID [facility] Last Admin: 03/10/19 11:47 Dose: 5,000 unit Sodium Chloride (Normal Saline -) 250 mls @ 3,000 mls/hr IV PRN PRN PRN Reason: Hypotension during Dialysis Stop: 03/10/19 13:06 Sodium Chloride (Normal Saline -) 250 mls @ 3,000 mls/hr IV PRN PRN PRN Reason: Hypotension during Dialysis Stop: 03/10/19 13:07 Labetalol HCl (Normodyne -) 200 mg PO BID [facility] Last Admin: 03/10/19 11:47 Dose: 200 mg Phenytoin Sodium (Dilantin Oral Suspension -) 200 mg PO BID [facility] Last Admin: 03/10/19 11:47 Dose: 200 mg Sertraline HCl (Zoloft -) 50 mg PO DAILY [facility] Last Admin: 03/10/19 11:47 Dose: 50 mg - Objective Vital Signs: Vital Signs Temperature 98.1 F 03/10/19 10:00 Pulse Rate 92 H 03/10/19 10:00 Respiratory Rate 19 03/10/19 10:00 Blood Pressure 144/64 03/10/19 10:00 O2 Sat by Pulse Oximetry (%) 97 03/09/19 21:00 Constitutional: Yes: Calm Eyes: Yes: Conjunctiva Clear HENT: Yes: Atraumatic Cardiovascular: Yes: S1, S2 Respiratory: Yes: CTA Bilaterally Gastrointestinal: Yes: Soft Genitourinary: Yes: Incontinence Edema: No Neurological: Yes: Oriented Psychiatric: Yes: Oriented Labs: CBC, BMP 03/09/19 11:00 03/09/19 11:00 INR, PTT INR 1.07 (0.83-1.09) 03/08/19 18:10 Problem List - Problems (1) Fever Code(s): R50.9 - FEVER, UNSPECIFIED Qualifiers: Fever type: unspecified Qualified Code(s): R50.9 - Fever, unspecified (2) ESRD (end stage renal disease) on dialysis Code(s): N18.6 - END STAGE RENAL DISEASE; Z99.2 - DEPENDENCE ON RENAL DIALYSIS Assessment/Plan Current Medications Generic Name Dose Route Start Last Admin Trade Name Freq PRN Reason Stop Dose Admin Acetaminophen 650 mg 03/08/19 22:46 Tylenol - PO Q4H PRN FEVER Aspirin 81 mg 03/09/19 10:00 03/10/19 11:47 Asa - PO 81 mg DAILY TYREE Administration Atorvastatin Calcium 80 mg 03/09/19 22:00 03/09/19 21:42 Lipitor - PO 80 mg HS TYREE Administration Calcium Acetate 667 mg 03/09/19 08:00 03/10/19 11:46 Phoslo - PO 667 mg TIDCM [facility] Administration Furosemide 40 mg 03/09/19 10:00 03/10/19 11:46 Lasix - PO 40 mg DAILY [facility]REE Administration Heparin Sodium (Porcine) 5,000 unit 03/08/19 22:00 03/10/19 11:47 Heparin - SQ 5,000 unit BID [facility] Administration Sodium Chloride 250 mls @ 3,000 mls/hr 03/09/19 13:06 Normal Saline - IV 03/10/19 13:06 PRN PRN Hypotension during Dialysis Sodium Chloride 250 mls @ 3,000 mls/hr 03/09/19 13:07 Normal Saline - IV 03/10/19 13:07 PRN PRN Hypotension during Dialysis Labetalol HCl 200 mg 03/08/19 22:15 03/10/19 11:47 Normodyne - PO 200 mg BID [facility] Administration Phenytoin Sodium 200 mg 03/08/19 22:15 03/10/19 11:47 Dilantin Oral Suspension - PO 200 mg BID [facility] Administration Sertraline HCl 50 mg 03/09/19 10:00 03/10/19 11:47 Zoloft - PO 50 mg DAILY [facility] Administration Impression 1. ESRD 2. chol 3. hx CVA 4. HTN 5. fever 6. epilepsy 7. bacteremia Plan - HD tomorrow to get pt on schedule - cont to follow cultures - ID eval - vascular eval - HD 3:30 2 k bath, 1000 heparin bolus 500 per hr, right arm AVF - unclear source
--- NOTE | 2019-03-10 13:00 | PN ---
Progress Note (short form) - Note Progress Note: pt seen/ examined alert/ awake today seen with Dr. Arizmendi small oozing + from right avf site Vital Signs Temp 98.1 F 03/10/19 10:00 Pulse 92 H 03/10/19 10:00 Resp 19 03/10/19 10:00 BP 144/64 03/10/19 10:00 Pulse Ox 97 03/09/19 21:00 Intake & Output 03/09/19 03/10/19 03/10/19 23:59 11:59 23:59 Intake Total 360 Balance 360 Intake: Oral 360 Other: Voiding Method Incontinent # Unmeasured Voids Void 1 1 Bowel Movement Yes Active Medications Acetaminophen (Tylenol -) 650 mg PO Q4H PRN PRN Reason: FEVER Aspirin (Asa -) 81 mg PO DAILY [facility] Last Admin: 03/10/19 11:47 Dose: 81 mg Atorvastatin Calcium (Lipitor -) 80 mg PO HS [facility] Last Admin: 03/09/19 21:42 Dose: 80 mg Calcium Acetate (Phoslo -) 667 mg PO TIDCM [facility] Last Admin: 03/10/19 11:46 Dose: 667 mg Furosemide (Lasix -) 40 mg PO DAILY [facility] Last Admin: 03/10/19 11:46 Dose: 40 mg Heparin Sodium (Porcine) (Heparin -) 5,000 unit SQ BID [facility] Last Admin: 03/10/19 11:47 Dose: 5,000 unit Sodium Chloride (Normal Saline -) 250 mls @ 3,000 mls/hr IV PRN PRN PRN Reason: Hypotension during Dialysis Stop: 03/10/19 13:06 Sodium Chloride (Normal Saline -) 250 mls @ 3,000 mls/hr IV PRN PRN PRN Reason: Hypotension during Dialysis Stop: 03/10/19 13:07 Labetalol HCl (Normodyne -) 200 mg PO BID [facility] Last Admin: 03/10/19 11:47 Dose: 200 mg Phenytoin Sodium (Dilantin Oral Suspension -) 200 mg PO BID [facility] Last Admin: 03/10/19 11:47 Dose: 200 mg Sertraline HCl (Zoloft -) 50 mg PO DAILY [facility] Last Admin: 03/10/19 11:47 Dose: 50 mg CBC, BMP 03/09/19 11:00 03/09/19 11:00 Microbiology 03/08/19 20:00 Urine Culture - Final Urine - Urine - Catheterized NO GROWTH OBTAINED 03/08/19 18:10 Blood Culture - Preliminary Blood - Peripheral Venous Presumptive Mrsa (Pbp2a Pos) Pending Organism 03/08/19 18:10 Blood Culture - Preliminary Blood - Peripheral Venous Staphylococcus Latex Coag Pos Physical Exam S1 S2 Lungs -- diminished abd- soft no edema neuro- pre- existing defecits +ve oozing Avf site PLAN sepsis mrsa bactremia esrd- hd h/o cva abx vanco-- dose per level f/u cultures dilaysis per renal overall much better vascular eval will follow Problem List - Problems (1) Fever Code(s): R50.9 - FEVER, UNSPECIFIED Qualifiers: Fever type: unspecified Qualified Code(s): R50.9 - Fever, unspecified (2) Acute metabolic encephalopathy Code(s): G93.41 - METABOLIC ENCEPHALOPATHY (3) CVA, old, aphasia Code(s): I69.320 - APHASIA FOLLOWING CEREBRAL INFARCTION (4) ESRD (end stage renal disease) on dialysis Code(s): N18.6 - END STAGE RENAL DISEASE; Z99.2 - DEPENDENCE ON RENAL DIALYSIS
[2019-03-10] MEDS: HEPARIN NA (PORCINE) 5,000 UNITS/ML 1ML VIAL IVPUSH SCH (13:30)
--- NOTE | 2019-03-10 20:14 | CONS ---
DATE OF CONSULTATION: DATE OF DICTATION: 03/10/2019 The patient is a 53-year-old male with history of end-stage renal disease, on hemodialysis, stroke, evaluated for sepsis. He was admitted from the correction after he was noted to have fever to 103. The patient offers no focal complaint, as he is aphasic. Blood cultures are now positive for gram-positive cocci in clusters. He is unable to offer any additional history. Past medical history positive for end-stage renal disease, on hemodialysis, stroke, nephrolithiasis, hypertension, hyperlipidemia. No known allergies. LABORATORY DATA: White count 5.8, creatinine 9.3. Chest x-ray negative. PHYSICAL EXAMINATION: General: He is awake, he is not verbally responsive. He is in no acute distress and not acutely toxic appearing. Vital Signs: Temperature 99. Blood pressure 104/58. Pulse 69, regular. Respirations 18 per minute. T-max 103.2. Eyes: Sclerae anicteric. Heart Sounds: S1, S2. Positive 2/6 pansystolic murmur. Lungs: Clear. Abdomen: Soft, nontender. Extremities: Positive AV graft. No erythema or tenderness noted at the site. Extremities with contractures. No edema noted. IMPRESSION: 1. Positive blood culture, staphylococcus species. Rule out staphylococcus sepsis. 2. End-stage renal disease, on hemodialysis. 3. Await identification of blood isolate, empiric antibiotic coverage adjusted for end-stage renal disease. Repeat blood cultures. Obtain echocardiogram. Further recommendations pending culture results. Will follow. Thank you for the kind referral. LANI ETIENNE M.D. [id number]
[2019-03-10] MEDS: ATORVASTATIN CA 80 MG TABLET (FP) PO SCH (21:33)
[2019-03-11] MEDS ORDERED: SODIUM CHLORIDE 250 ML IV PRN (06:29)
[2019-03-11] MEDS ORDERED: HEPARIN NA (PORCINE) 5,000 UNITS/ML 1ML VIAL IVPUSH ONE (06:30)
[2019-03-11] MEDS ORDERED: PT OWN MED DRAWER 7, Y5N ONE ×4 (06:48→21:30)
[2019-03-11] MEDS ORDERED: INSULIN SLIDING SCALE (NOVOLOG) 1 VIAL SQ ONE (06:48)
[2019-03-11] MEDS: HEPARIN NA (PORCINE) 5,000 UNITS/ML 1ML VIAL IVPUSH SCH ×3 (08:10→10:10)
[2019-03-11 08:25] LABS: HEMATOCRIT 31.6 % (35.4-49); HEMOGLOBIN 10.5 GM/dL (11.7-16.9); MCH 33.9 pg (25.7-33.7); MCHC 33.3 g/dl (32.0-35.9); MEAN CELL VOLUME 101.9 fl (80-96); MEAN PLT VOLUME 9.1 fl (7.5-11.1); PLATELET COUNT 110 K/MM3 (134-434); RBC 3.11 M/mm3 (4.00-5.60); RDW 14.7 % (11.9-15.9); WHITE BLOOD COUNT 7.3 K/mm3 (4.0-10.0)
[2019-03-11 08:53] LABS: BLOOD UREA NITROGEN 57.1 mg/dL (7-18); POTASSIUM 3.6 mmol/L (3.5-5.1)
[2019-03-11 08:58] LABS: CREATININE 7.7 mg/dL (0.55-1.3)
[2019-03-11] MEDS: CALCIUM ACETATE 667 MG CAPSULE (FP) PO SCH ×3 (09:21→18:34)
[2019-03-11] MEDS: LABETALOL HCL 200 MG TABLET (FP) PO SCH ×2 (11:55→21:31)
[2019-03-11] MEDS: PHENYTOIN 100 MG/4 ML U-D CUP PO SCH ×2 (11:55→21:36)
[2019-03-11] MEDS: HEPARIN NA (PORCINE) 5,000 UNITS/ML 1ML VIAL SQ SCH ×2 (11:55→21:36)
[2019-03-11] MEDS: SERTRALINE HCL 50 MG TABLET (FP) PO SCH (11:55)
[2019-03-11] MEDS: ASPIRIN 81 MG CHEWABLE TABLETS PO SCH (11:55)
[2019-03-11] MEDS: FUROSEMIDE 40 MG TABLET (FP) PO SCH (11:55)
[2019-03-11 12:14] LABS: BLOOD UREA NITROGEN 13.6 mg/dL (7-18); CREATININE 2.5 mg/dL (0.55-1.3)
--- NOTE | 2019-03-11 13:11 | PN ---
Progress Note (short form) - Note Progress Note: pt seen/ examined chart reviewed awake comfortable sister at bedside Vital Signs Temp 99 F 03/11/19 12:18 Pulse 83 03/11/19 12:18 Resp 16 03/11/19 12:18 BP 145/52 L 03/11/19 12:18 Pulse Ox 98 03/10/19 19:52 Intake & Output 03/10/19 03/11/19 03/11/19 23:59 11:59 23:59 Intake Total 810 210 Balance 810 210 Intake: IV 0 10 Saline Lock 0 10 IVPB 100 Oral 710 200 Other: Voiding Method Diaper Diaper # Unmeasured Voids Void 0 Bowel Movement No # Bowel Movements 0 Active Medications Acetaminophen (Tylenol -) 650 mg PO Q4H PRN PRN Reason: FEVER Aspirin (Asa -) 81 mg PO DAILY [facility] Last Admin: 03/11/19 11:55 Dose: 81 mg Atorvastatin Calcium (Lipitor -) 80 mg PO HS [facility] Last Admin: 03/10/19 21:33 Dose: 80 mg Calcium Acetate (Phoslo -) 667 mg PO TIDCM [facility] Last Admin: 03/11/19 11:55 Dose: 667 mg Furosemide (Lasix -) 40 mg PO DAILY [facility] Last Admin: 03/11/19 11:55 Dose: 40 mg Heparin Sodium (Porcine) (Heparin -) 5,000 unit SQ BID [facility] Last Admin: 03/11/19 11:55 Dose: 5,000 unit Labetalol HCl (Normodyne -) 200 mg PO BID [facility] Last Admin: 03/11/19 11:55 Dose: 200 mg Phenytoin Sodium (Dilantin Oral Suspension -) 200 mg PO BID [facility] Last Admin: 03/11/19 11:55 Dose: 200 mg Sertraline HCl (Zoloft -) 50 mg PO DAILY [facility] Last Admin: 03/11/19 11:55 Dose: 50 mg CBC, BMP 03/11/19 07:10 03/11/19 10:45 Microbiology 03/08/19 18:10 Blood Culture - Final Blood - Peripheral Venous Mr S Aureus 03/10/19 08:03 Blood Culture - Preliminary Blood - Peripheral Venous NO GROWTH OBTAINED AFTER 24 HOURS, INCUBATION TO CONTINUE FOR 4 DAYS. 03/10/19 06:23 Blood Culture - Preliminary Blood - Peripheral Venous NO GROWTH OBTAINED AFTER 24 HOURS, INCUBATION TO CONTINUE FOR 4 DAYS. 03/08/19 20:00 Urine Culture - Final Urine - Urine - Catheterized NO GROWTH OBTAINED Physical Exam S1 S2 Lungs -- diminished abd- soft no edema neuro- pre- existing defecits +ve oozing Avf site PLAN sepsis mrsa bactremia esrd- hd h/o cva abx vanco-- dose per level f/u cultures dilaysis per renal overall much better vascular eval pending will follow Problem List - Problems (1) Fever Code(s): R50.9 - FEVER, UNSPECIFIED Qualifiers: Fever type: unspecified Qualified Code(s): R50.9 - Fever, unspecified (2) Acute metabolic encephalopathy Code(s): G93.41 - METABOLIC ENCEPHALOPATHY (3) CVA, old, aphasia Code(s): I69.320 - APHASIA FOLLOWING CEREBRAL INFARCTION (4) ESRD (end stage renal disease) on dialysis Code(s): N18.6 - END STAGE RENAL DISEASE; Z99.2 - DEPENDENCE ON RENAL DIALYSIS
--- NOTE | 2019-03-11 13:37 | PN ---
Progress Note, Physician History of Present Illness: Pt seen and examined at bedside. He is more awake today. His mother is at bedside. - Current Medication List Current Medications: Active Medications Acetaminophen (Tylenol -) 650 mg PO Q4H PRN PRN Reason: FEVER Aspirin (Asa -) 81 mg PO DAILY [facility] Last Admin: 03/11/19 11:55 Dose: 81 mg Atorvastatin Calcium (Lipitor -) 80 mg PO HS [facility] Last Admin: 03/10/19 21:33 Dose: 80 mg Calcium Acetate (Phoslo -) 667 mg PO TIDCM [facility] Last Admin: 03/11/19 11:55 Dose: 667 mg Furosemide (Lasix -) 40 mg PO DAILY [facility] Last Admin: 03/11/19 11:55 Dose: 40 mg Heparin Sodium (Porcine) (Heparin -) 5,000 unit SQ BID [facility] Last Admin: 03/11/19 11:55 Dose: 5,000 unit Labetalol HCl (Normodyne -) 200 mg PO BID [facility] Last Admin: 03/11/19 11:55 Dose: 200 mg Phenytoin Sodium (Dilantin Oral Suspension -) 200 mg PO BID [facility] Last Admin: 03/11/19 11:55 Dose: 200 mg Sertraline HCl (Zoloft -) 50 mg PO DAILY [facility] Last Admin: 03/11/19 11:55 Dose: 50 mg - Objective Vital Signs: Vital Signs Temperature 99 F 03/11/19 12:18 Pulse Rate 83 03/11/19 12:18 Respiratory Rate 16 03/11/19 12:18 Blood Pressure 145/52 L 03/11/19 12:18 O2 Sat by Pulse Oximetry (%) 98 03/10/19 19:52 Constitutional: Yes: Calm Eyes: Yes: Conjunctiva Clear HENT: Yes: Atraumatic Neck: Yes: Supple Cardiovascular: Yes: S1, S2 Respiratory: Yes: CTA Bilaterally Gastrointestinal: Yes: Soft Genitourinary: Yes: Incontinence Musculoskeletal: Yes: Muscle Weakness Edema: No Neurological: Yes: Pre-Existing Deficit Labs: CBC, BMP 03/11/19 07:10 03/11/19 10:45 INR, PTT INR 1.07 (0.83-1.09) 03/08/19 18:10 Problem List - Problems (1) Fever Code(s): R50.9 - FEVER, UNSPECIFIED Qualifiers: Fever type: unspecified Qualified Code(s): R50.9 - Fever, unspecified (2) ESRD (end stage renal disease) on dialysis Code(s): N18.6 - END STAGE RENAL DISEASE; Z99.2 - DEPENDENCE ON RENAL DIALYSIS Assessment/Plan Current Medications Generic Name Dose Route Start Last Admin Trade Name Freq PRN Reason Stop Dose Admin Acetaminophen 650 mg 03/08/19 22:46 Tylenol - PO Q4H PRN FEVER Aspirin 81 mg 03/09/19 10:00 03/11/19 11:55 Asa - PO 81 mg DAILY [facility] Administration Atorvastatin Calcium 80 mg 03/09/19 22:00 03/10/19 21:33 Lipitor - PO 80 mg HS [facility] Administration Calcium Acetate 667 mg 03/09/19 08:00 03/11/19 11:55 Phoslo - PO 667 mg TIDCM [facility] Administration Furosemide 40 mg 03/09/19 10:00 03/11/19 11:55 Lasix - PO 40 mg DAILY [facility] Administration Heparin Sodium (Porcine) 5,000 unit 03/08/19 22:00 03/11/19 11:55 Heparin - SQ 5,000 unit BID [facility] Administration Labetalol HCl 200 mg 03/08/19 22:15 03/11/19 11:55 Normodyne - PO 200 mg BID [facility] Administration Phenytoin Sodium 200 mg 03/08/19 22:15 03/11/19 11:55 Dilantin Oral Suspension - PO 200 mg BID [facility] Administration Sertraline HCl 50 mg 03/09/19 10:00 03/11/19 11:55 Zoloft - PO 50 mg DAILY [facility] Administration Impression 1. ESRD 2. chol 3. hx CVA 4. HTN 5. fever 6. epilepsy 7. bacteremia Plan - pt tolerated HD today - follow cultures - vascular input pending - discussed with medical team - HD 3:30 2 k bath, 1000 heparin bolus 500 per hr, right arm AVF - unclear source
[2019-03-11] MEDS: ATORVASTATIN CA 80 MG TABLET (FP) PO SCH (21:31)
[2019-03-12] MEDS: CALCIUM ACETATE 667 MG CAPSULE (FP) PO SCH ×3 (08:45→17:39)
--- NOTE | 2019-03-12 09:16 | PN ---
Progress Note (short form) - Note Progress Note: full consult dictated. no sign of infection of access on physical exam. right arm duplex ordered. suggest workup for other causes
--- NOTE | 2019-03-12 10:09 | CONS ---
DATE OF CONSULTATION: 03/12/2019 TYPE OF CONSULT: Vascular surgery. REQUESTING PHYSICIAN: DICTATING PHYSICIAN: Shae Abreu MD CHIEF COMPLAINT: Positive blood cultures. HISTORY OF PRESENT ILLNESS: This patient is a 53-year-old man who is known tome from his previous access issues. He has a history of stroke with aphasia. He is bedbound. He lives at [facility]. He was set on dialysis. When I first saw him about 2 years ago, he had a nonfunctional left arm fistula with central venous occlusion that was not able to be crossed. The left arm was extremely swollen, and the fistula was not able to be salvaged. Therefore, I embolized the left arm, which resulted in resolution of the swelling, and I placed an AV graft in the right arm. He has been using the AV graft without any problem. He was admitted to the hospital with fever and initially had a positive blood culture on admission. Vascular surgery was consulted to assess him for infection of the graft. PAST MEDICAL HISTORY: Stroke, aphasia, renal failure, on hemodialysis, hypertension, hyperlipidemia. PAST SURGICAL HISTORY: As per HPI. ALLERGIES: None. MEDICATIONS: Reviewed. FAMILY HISTORY: Reviewed, noncontributory. SOCIAL HISTORY: Patient lives in [facility]. REVIEW OF SYSTEMS: Unobtainable because the patient is not able to communicate. LABORATORY RESULTS: White blood cell count 7.3, hemoglobin 10.5, platelets 110. BUN 13.6, creatinine 2.5. Microbiology blood culture from March 08, one peripheral culture showed coag positive staph. Another culture showed MRSA. Repeat blood cultures on the March 10 two days later have been negative for 48 hours, and blood cultures from today are pending. IMAGING RESULTS: Chest x-ray shows no acute process. PHYSICAL EXAMINATION: Vital signs: Patient is currently afebrile. Vital signs stable. General: In no acute distress. HEENT: Normocephalic atraumatic. Neck: Supple. Heart: S1, S2. Lungs: Clear to auscultation bilaterally. Abdomen: Soft, nontender, nondistended. Extremities: No foot wounds. Right arm dressing was removed. Right AV graft was inspected, no signs of infection, no drainage, no discharge. Left arm stump of the prior AV fistula was inspected, no swelling, no drainage, no discharge. No signs of infection of the patient access. ASSESSMENT AND PLAN: This is a 53-year-old man. Blood cultures are repeated now, negative with no obvious sign of effected graft. I will order a duplex of the right arm graft to confirm, but there is no obvious source in terms of the patients access for his positive blood cultures. Suggest workup for other causes. SHAE ABREU M.D. [id number]
[2019-03-12] MEDS: ASPIRIN 81 MG CHEWABLE TABLETS PO SCH (10:14)
[2019-03-12] MEDS: FUROSEMIDE 40 MG TABLET (FP) PO SCH (10:14)
[2019-03-12] MEDS: LABETALOL HCL 200 MG TABLET (FP) PO SCH ×2 (10:14→22:41)
[2019-03-12] MEDS: SERTRALINE HCL 50 MG TABLET (FP) PO SCH (10:15)
[2019-03-12] MEDS: PHENYTOIN 100 MG/4 ML U-D CUP PO SCH ×2 (10:15→22:41)
[2019-03-12] MEDS: HEPARIN NA (PORCINE) 5,000 UNITS/ML 1ML VIAL SQ SCH ×2 (10:15→22:41)
--- NOTE | 2019-03-12 11:24 | PN ---
Progress Note (short form) - Note Progress Note: Events noted lying down - no distress blood cultures repeated Vital Signs - 24 hr 03/11/19 03/11/19 03/11/19 12:18 18:00 20:00 Temperature 99 F 98.9 F 100.0 F H Pulse Rate 83 92 H 91 H Respiratory 16 18 20 Rate Blood Pressure 145/52 L 133/50 L 145/55 L O2 Sat by Pulse Oximetry (%) 03/11/19 03/12/19 03/12/19 21:00 06:00 09:00 Temperature 99.8 F H Pulse Rate 90 Respiratory 20 20 Rate Blood Pressure 158/71 O2 Sat by Pulse 93 L 96 Oximetry (%) 03/12/19 09:09 Temperature 98.8 F Pulse Rate 84 Respiratory 20 Rate Blood Pressure 144/70 O2 Sat by Pulse Oximetry (%) Current Medications Generic Name Dose Route Start Last Admin Trade Name Freq PRN Reason Stop Dose Admin Acetaminophen 650 mg 03/08/19 22:46 Tylenol - PO Q4H PRN FEVER Aspirin 81 mg 03/09/19 10:00 03/12/19 10:14 Asa - PO 81 mg DAILY [facility] Administration Atorvastatin Calcium 80 mg 03/09/19 22:00 03/11/19 21:31 Lipitor - PO 80 mg HS [facility] Administration Calcium Acetate 667 mg 03/09/19 08:00 03/12/19 08:45 Phoslo - PO 667 mg TIDCM [facility] Administration Furosemide 40 mg 03/09/19 10:00 03/12/19 10:14 Lasix - PO 40 mg DAILY [facility] Administration Heparin Sodium (Porcine) 5,000 unitS1 S2 03/08/19 22:00 03/12/19 10:15 Heparin - SQ 5,000 unit BID [facility] Administration Labetalol HCl 200 mg 03/08/19 22:15 03/12/19 10:14 Normodyne - PO 200 mg BID [facility] Administration Phenytoin Sodium 200 mg 03/08/19 22:15 03/12/19 10:15 Dilantin Oral Suspension - PO 200 mg BID [facility] Administration Sertraline HCl 50 mg 03/09/19 10:00 03/12/19 10:15 Zoloft - PO 50 mg DAILY [facility] Administration Laboratory Results - last 24 hr 03/09/19 03/11/19 03/12/19 14:00 10:45 06:20 BUN 13.6 Creatinine 2.5 H Est GFR (CKD-EPI)AfAm 32.75 Est GFR (CKD-EPI)NonAf 28.25 Random Vancomycin 14.5 L Hep C Ab Diagnostic 0.2 S1 S2 RRR Lungs clear Abd- soft, NT no edema PLAN repeated blood cultures had a low grade temp Vascular eval noted-- no signs of infection on right AVF HD per renal empiric antibiotics- during HD order liver sono for elevated LFT Problem List - Problems (1) Fever Code(s): R50.9 - FEVER, UNSPECIFIED Qualifiers: Fever type: unspecified Qualified Code(s): R50.9 - Fever, unspecified (2) Acute metabolic encephalopathy Code(s): G93.41 - METABOLIC ENCEPHALOPATHY (3) Altered mental status, unspecified Code(s): R41.82 - ALTERED MENTAL STATUS, UNSPECIFIED Qualifiers: Altered mental status type: unspecified Qualified Code(s): R41.82 - Altered mental status, unspecified (4) CVA, old, aphasia Code(s): I69.320 - APHASIA FOLLOWING CEREBRAL INFARCTION (5) ESRD (end stage renal disease) on dialysis Code(s): N18.6 - END STAGE RENAL DISEASE; Z99.2 - DEPENDENCE ON RENAL DIALYSIS
[2019-03-12] MEDS ORDERED: SODIUM CHLORIDE 250 ML IV PRN (12:43)
--- NOTE | 2019-03-12 12:43 | PN ---
Progress Note, Physician History of Present Illness: Pt seen and examined at bedside. He is awake and mental status is at baseline. He denies shortness of breath. - Current Medication List Current Medications: Active Medications Acetaminophen (Tylenol -) 650 mg PO Q4H PRN PRN Reason: FEVER Aspirin (Asa -) 81 mg PO DAILY [facility] Last Admin: 03/12/19 10:14 Dose: 81 mg Atorvastatin Calcium (Lipitor -) 80 mg PO HS [facility] Last Admin: 03/11/19 21:31 Dose: 80 mg Calcium Acetate (Phoslo -) 667 mg PO TIDCM [facility] Last Admin: 03/12/19 08:45 Dose: 667 mg Furosemide (Lasix -) 40 mg PO DAILY [facility] Last Admin: 03/12/19 10:14 Dose: 40 mg Heparin Sodium (Porcine) (Heparin -) 5,000 unit SQ BID [facility] Last Admin: 03/12/19 10:15 Dose: 5,000 unit Labetalol HCl (Normodyne -) 200 mg PO BID [facility] Last Admin: 03/12/19 10:14 Dose: 200 mg Phenytoin Sodium (Dilantin Oral Suspension -) 200 mg PO BID [facility] Last Admin: 03/12/19 10:15 Dose: 200 mg Sertraline HCl (Zoloft -) 50 mg PO DAILY [facility] Last Admin: 03/12/19 10:15 Dose: 50 mg - Objective Vital Signs: Vital Signs Temperature 98.8 F 03/12/19 09:09 Pulse Rate 84 03/12/19 09:09 Respiratory Rate 20 03/12/19 09:09 Blood Pressure 144/70 03/12/19 09:09 O2 Sat by Pulse Oximetry (%) 96 03/12/19 09:00 Constitutional: Yes: Calm Eyes: Yes: Conjunctiva Clear HENT: Yes: Atraumatic Neck: Yes: Supple Cardiovascular: Yes: S1, S2 Respiratory: Yes: CTA Bilaterally Gastrointestinal: Yes: Soft Genitourinary: Yes: Incontinence Musculoskeletal: Yes: Muscle Weakness Edema: No Integumentary: Yes: WNL Neurological: Yes: Pre-Existing Deficit Labs: CBC, BMP 03/11/19 07:10 03/11/19 10:45 INR, PTT INR 1.07 (0.83-1.09) 03/08/19 18:10 Problem List - Problems (1) Fever Code(s): R50.9 - FEVER, UNSPECIFIED Qualifiers: Fever type: unspecified Qualified Code(s): R50.9 - Fever, unspecified (2) ESRD (end stage renal disease) on dialysis Code(s): N18.6 - END STAGE RENAL DISEASE; Z99.2 - DEPENDENCE ON RENAL DIALYSIS Assessment/Plan Current Medications Generic Name Dose Route Start Last Admin Trade Name Freq PRN Reason Stop Dose Admin Acetaminophen 650 mg 03/08/19 22:46 Tylenol - PO Q4H PRN FEVER Aspirin 81 mg 03/09/19 10:00 03/12/19 10:14 Asa - PO 81 mg DAILY [facility] Administration Atorvastatin Calcium 80 mg 03/09/19 22:00 03/11/19 21:31 Lipitor - PO 80 mg HS [facility] Administration Calcium Acetate 667 mg 03/09/19 08:00 03/12/19 08:45 Phoslo - PO 667 mg TIDCM [facility] Administration Furosemide 40 mg 03/09/19 10:00 03/12/19 10:14 Lasix - PO 40 mg DAILY [facility] Administration Heparin Sodium (Porcine) 5,000 unit 03/08/19 22:00 03/12/19 10:15 Heparin - SQ 5,000 unit BID [facility] Administration Labetalol HCl 200 mg 03/08/19 22:15 03/12/19 10:14 Normodyne - PO 200 mg BID [facility] Administration Phenytoin Sodium 200 mg 03/08/19 22:15 03/12/19 10:15 Dilantin Oral Suspension - PO 200 mg BID [facility] Administration Sertraline HCl 50 mg 03/09/19 10:00 03/12/19 10:15 Zoloft - PO 50 mg DAILY [facility] Administration Microbiology 03/10/19 08:03 Blood - Peripheral Venous Blood Culture - Preliminary NO GROWTH OBTAINED AFTER 48 HOURS, INCUBATION TO CONTINUE FOR 3 DAYS. 03/10/19 08:03 Blood - Peripheral Venous Blood Culture - Preliminary NO GROWTH OBTAINED AFTER 24 HOURS, INCUBATION TO CONTINUE FOR 4 DAYS. 03/10/19 06:23 Blood - Peripheral Venous Blood Culture - Preliminary NO GROWTH OBTAINED AFTER 48 HOURS, INCUBATION TO CONTINUE FOR 3 DAYS. 03/10/19 06:23 Blood - Peripheral Venous Blood Culture - Preliminary NO GROWTH OBTAINED AFTER 24 HOURS, INCUBATION TO CONTINUE FOR 4 DAYS. Impression 1. ESRD 2. chol 3. hx CVA 4. HTN 5. fever 6. epilepsy 7. bacteremia Plan - pt for HD tomorrow - abx per ID - cont to monitor cultures - vascular input appreciated - HD 3:30 2 k bath, 1000 heparin bolus 500 per hr, right arm AVF - unclear source
[2019-03-12] MEDS ORDERED: VANCOMYCIN 1 GRAM (PRE-DOCKED) 1,000 MG/250 ML BAG IVPB ONE (17:24)
[2019-03-12 21:13] LABS: HBSAG SCREEN Negative (Negative); HEP A AB, IGM Negative (Negative); HEP B CORE AB, TOT Positive (Negative)
[2019-03-12] MEDS ORDERED: PT OWN MED DRAWER 7, Y5N ONE (22:31)
[2019-03-12] MEDS: ATORVASTATIN CA 80 MG TABLET (FP) PO SCH (22:41)
[2019-03-13 06:35] LABS: BASO % 0.4 % (0-2.0); EOS % 3.7 % (0-4.5); HEMATOCRIT 32.3 % (35.4-49); HEMOGLOBIN 10.8 GM/dL (11.7-16.9); LYMPH % 10.9 % (8-40); MCH 33.5 pg (25.7-33.7); MCHC 33.3 g/dl (32.0-35.9); MEAN CELL VOLUME 100.5 fl (80-96); MEAN PLT VOLUME 8.8 fl (7.5-11.1); MONO % 11.8 % (3.8-10.2); NEUT % 73.2 % (42.8-82.8); PLATELET COUNT 178 K/MM3 (134-434); RBC 3.22 M/mm3 (4.00-5.60); RDW 14.6 % (11.9-15.9); WHITE BLOOD COUNT 8.4 K/mm3 (4.0-10.0)
[2019-03-13 08:52] LABS: ALBUMIN 2.6 g/dl (3.4-5.0); CALCIUM 8.1 mg/dL (8.5-10.1); CREATININE 7.2 mg/dL (0.55-1.3); POTASSIUM 4.1 mmol/L (3.5-5.1); TOT PROT 6.6 g/dl (6.4-8.2)
[2019-03-13 08:53] LABS: BILIRUBIN,TOTAL 0.4 mg/dL (0.2-1); BLOOD UREA NITROGEN 51.7 mg/dL (7-18)
[2019-03-13] MEDS: SERTRALINE HCL 50 MG TABLET (FP) PO SCH (11:23)
[2019-03-13] MEDS: HEPARIN NA (PORCINE) 5,000 UNITS/ML 1ML VIAL SQ SCH ×2 (11:24→21:09)
[2019-03-13] MEDS: ASPIRIN 81 MG CHEWABLE TABLETS PO SCH (11:24)
[2019-03-13] MEDS: CALCIUM ACETATE 667 MG CAPSULE (FP) PO SCH ×3 (11:24→18:33)
[2019-03-13] MEDS: FUROSEMIDE 40 MG TABLET (FP) PO SCH (11:24)
[2019-03-13] MEDS: LABETALOL HCL 200 MG TABLET (FP) PO SCH ×2 (11:24→21:09)
[2019-03-13] MEDS: PHENYTOIN 100 MG/4 ML U-D CUP PO SCH ×2 (11:36→21:10)
[2019-03-13] MEDS ORDERED: HEPARIN NA (PORCINE) 5,000 UNITS/ML 1ML VIAL IVPUSH ONE (12:43)
[2019-03-13] MEDS ORDERED: HEPARIN NA (PORCINE) 5,000 UNITS/ML 1ML VIAL IVPUSH SCH (12:45)
--- NOTE | 2019-03-13 13:00 | PN ---
Progress Note (short form) - Note Progress Note: Events noted pt examined in dialysis lying down - no distress blood cultures repeated--one is positive Vital Signs - 24 hr 03/12/19 03/12/19 03/12/19 13:27 18:00 21:00 Temperature 98.4 F 98.0 F Pulse Rate 84 80 Respiratory 16 18 18 Rate Blood Pressure 160/70 160/71 O2 Sat by Pulse 96 Oximetry (%) 03/12/19 03/13/19 03/13/19 21:24 02:00 05:42 Temperature 98.3 F 99 F 99 F Pulse Rate 86 80 80 Respiratory 16 15 15 Rate Blood Pressure 167/64 145/52 L 143/68 O2 Sat by Pulse Oximetry (%) 03/13/19 03/13/19 12:05 12:10 Temperature 99 F Pulse Rate 80 87 Respiratory 18 18 Rate Blood Pressure 174/76 H 158/80 O2 Sat by Pulse Oximetry (%) Current Medications Generic Name Dose Route Start Last Admin Trade Name Freq PRN Reason Stop Dose Admin Acetaminophen 650 mg 03/08/19 22:46 Tylenol - PO Q4H PRN FEVER Aspirin 81 mg 03/09/19 10:00 03/13/19 11:24 Asa - PO 81 mg DAILY [facility] Administration Atorvastatin Calcium 80 mg 03/09/19 22:00 03/12/19 22:41 Lipitor - PO 80 mg HS [facility] Administration Calcium Acetate 667 mg 03/09/19 08:00 03/13/19 11:24 Phoslo - PO 667 mg TIDCM [facility] Administration Furosemide 40 mg 03/09/19 10:00 03/13/19 11:24 Lasix - PO 40 mg DAILY [facility] Administration Heparin Sodium (Porcine) 5,000 unit 03/08/19 22:00 03/13/19 11:24 Heparin - SQ 5,000 unit BID [facility] Administration Labetalol HCl 200 mg 03/08/19 22:15 03/13/19 11:24 Normodyne - PO 200 mg BID [facility] Administration Phenytoin Sodium 200 mg 03/08/19 22:15 03/13/19 11:36 Dilantin Oral Suspension - PO 200 mg BID [facility] Administration Sertraline HCl 50 mg 03/09/19 10:00 03/13/19 11:23 Zoloft - PO 50 mg DAILY [facility] Administration Laboratory Results - last 24 hr 03/09/19 03/13/19 03/13/19 14:00 05:30 05:30 WBC RBC Hgb Hct MCV MCH MCHC RDW Plt Count MPV Absolute Neuts (auto) Neutrophils % Lymphocytes % Monocytes % Eosinophils % Basophils % Nucleated RBC % Sodium 138 Potassium 4.1 Chloride 98 Carbon Dioxide 32 Anion Gap 8 BUN 51.7 H Creatinine 7.2 H Est GFR (CKD-EPI)AfAm 9.12 Est GFR (CKD-EPI)NonAf 7.86 Random Glucose 113 H Calcium 8.1 L Total Bilirubin 0.4 GGT 362 H AST 54 H ALT 51 Alkaline Phosphatase 249 H Total Protein 6.6 Albumin 2.6 L Random Vancomycin 30.2 H* Hep A IgM Ab Confirm Negative Hepatitis A Ab Total Positive H Hep Bs Antigen Negative Hep Bs Antibody Reactive Hep B Core Total Ab Positive H 03/13/19 05:35 WBC 8.4 RBC 3.22 L Hgb 10.8 L Hct 32.3 L MCV 100.5 H MCH 33.5 MCHC 33.3 RDW 14.6 Plt Count 178 D MPV 8.8 Absolute Neuts (auto) 6.2 Neutrophils % 73.2 Lymphocytes % 10.9 D Monocytes % 11.8 H Eosinophils % 3.7 D Basophils % 0.4 Nucleated RBC % 0 Sodium Potassium Chloride Carbon Dioxide Anion Gap BUN Creatinine Est GFR (CKD-EPI)AfAm Est GFR (CKD-EPI)NonAf Random Glucose Calcium Total Bilirubin GGT AST ALT Alkaline Phosphatase Total Protein Albumin Random Vancomycin Hep A IgM Ab Confirm Hepatitis A Ab Total Hep Bs Antigen Hep Bs Antibody Hep B Core Total Ab S1 S2 RRR Lungs clear Abd- soft, NT no edema PLAN repeated blood cultures-- on eis positive ordered Echo vanco during HD had a low grade temp Vascular eval noted-- no signs of infection on right AVF HD per renal empiric antibiotics- during HD order liver sono for elevated LFT Problem List - Problems (1) Fever Code(s): R50.9 - FEVER, UNSPECIFIED Qualifiers: Fever type: unspecified Qualified Code(s): R50.9 - Fever, unspecified (2) Acute metabolic encephalopathy Code(s): G93.41 - METABOLIC ENCEPHALOPATHY (3) Altered mental status, unspecified Code(s): R41.82 - ALTERED MENTAL STATUS, UNSPECIFIED Qualifiers: Altered mental status type: unspecified Qualified Code(s): R41.82 - Altered mental status, unspecified (4) CVA, old, aphasia Code(s): I69.320 - APHASIA FOLLOWING CEREBRAL INFARCTION (5) ESRD (end stage renal disease) on dialysis Code(s): N18.6 - END STAGE RENAL DISEASE; Z99.2 - DEPENDENCE ON RENAL DIALYSIS
--- NOTE | 2019-03-13 13:29 | PN ---
Progress Note, Physician History of Present Illness: Pt seen and examined at bedside. He is tolerating HD. - Current Medication List Current Medications: Active Medications Acetaminophen (Tylenol -) 650 mg PO Q4H PRN PRN Reason: FEVER Aspirin (Asa -) 81 mg PO DAILY [facility] Last Admin: 03/13/19 11:24 Dose: 81 mg Atorvastatin Calcium (Lipitor -) 80 mg PO HS [facility] Last Admin: 03/12/19 22:41 Dose: 80 mg Calcium Acetate (Phoslo -) 667 mg PO TIDCM [facility] Last Admin: 03/13/19 11:24 Dose: 667 mg Furosemide (Lasix -) 40 mg PO DAILY [facility] Last Admin: 03/13/19 11:24 Dose: 40 mg Heparin Sodium (Porcine) (Heparin -) 5,000 unit SQ BID [facility] Last Admin: 03/13/19 11:24 Dose: 5,000 unit Labetalol HCl (Normodyne -) 200 mg PO BID [facility] Last Admin: 03/13/19 11:24 Dose: 200 mg Phenytoin Sodium (Dilantin Oral Suspension -) 200 mg PO BID [facility] Last Admin: 03/13/19 11:36 Dose: 200 mg Sertraline HCl (Zoloft -) 50 mg PO DAILY [facility] Last Admin: 03/13/19 11:23 Dose: 50 mg - Objective Vital Signs: Vital Signs Temperature 99 F 03/13/19 12:05 Pulse Rate 87 03/13/19 12:10 Respiratory Rate 18 03/13/19 12:10 Blood Pressure 158/80 03/13/19 12:10 O2 Sat by Pulse Oximetry (%) 96 03/12/19 21:00 Constitutional: Yes: Calm Eyes: Yes: Conjunctiva Clear HENT: Yes: Atraumatic Neck: Yes: Supple Cardiovascular: Yes: S1, S2 Respiratory: Yes: CTA Bilaterally Gastrointestinal: Yes: Soft Genitourinary: Yes: Incontinence Musculoskeletal: Yes: Muscle Weakness Edema: No Neurological: Yes: Pre-Existing Deficit Labs: CBC, BMP 03/13/19 05:35 03/13/19 05:30 INR, PTT INR 1.07 (0.83-1.09) 03/08/19 18:10 Problem List - Problems (1) Fever Code(s): R50.9 - FEVER, UNSPECIFIED Qualifiers: Fever type: unspecified Qualified Code(s): R50.9 - Fever, unspecified (2) ESRD (end stage renal disease) on dialysis Code(s): N18.6 - END STAGE RENAL DISEASE; Z99.2 - DEPENDENCE ON RENAL DIALYSIS Assessment/Plan Current Medications Generic Name Dose Route Start Last Admin Trade Name Freq PRN Reason Stop Dose Admin Acetaminophen 650 mg 03/08/19 22:46 Tylenol - PO Q4H PRN FEVER Aspirin 81 mg 03/09/19 10:00 03/13/19 11:24 Asa - PO 81 mg DAILY [facility] Administration Atorvastatin Calcium 80 mg 03/09/19 22:00 03/12/19 22:41 Lipitor - PO 80 mg HS [facility] Administration Calcium Acetate 667 mg 03/09/19 08:00 03/13/19 11:24 Phoslo - PO 667 mg TIDCM [facility] Administration Furosemide 40 mg 03/09/19 10:00 03/13/19 11:24 Lasix - PO 40 mg DAILY [facility] Administration Heparin Sodium (Porcine) 5,000 unit 03/08/19 22:00 03/13/19 11:24 Heparin - SQ 5,000 unit BID [facility] Administration Labetalol HCl 200 mg 03/08/19 22:15 03/13/19 11:24 Normodyne - PO 200 mg BID [facility] Administration Phenytoin Sodium 200 mg 03/08/19 22:15 03/13/19 11:36 Dilantin Oral Suspension - PO 200 mg BID [facility] Administration Sertraline HCl 50 mg 03/09/19 10:00 03/13/19 11:23 Zoloft - PO 50 mg DAILY [facility] Administration Impression 1. ESRD 2. chol 3. hx CVA 4. HTN 5. fever 6. epilepsy 7. bacteremia Plan - HD today - follow cultures - abx per ID - HD 3:30 2 k bath, 1000 heparin bolus 500 per hr, right arm AVF - unclear source
[2019-03-13] MEDS: ACETAMINOPHEN 325 MG TABLET (FP) PO PRN (18:41)
[2019-03-13] MEDS: ATORVASTATIN CA 80 MG TABLET (FP) PO SCH (21:09)
[2019-03-14 09:24] LABS: ALBUMIN 2.7 g/dl (3.4-5.0); BILIRUBIN,TOTAL 0.5 mg/dL (0.2-1); BLOOD UREA NITROGEN 33.6 mg/dL (7-18); CALCIUM 8.5 mg/dL (8.5-10.1); CREATININE 5.1 mg/dL (0.55-1.3); POTASSIUM 3.8 mmol/L (3.5-5.1); TOT PROT 6.9 g/dl (6.4-8.2)
[2019-03-14] MEDS: CALCIUM ACETATE 667 MG CAPSULE (FP) PO SCH ×3 (09:52→18:24)
[2019-03-14] MEDS: ASPIRIN 81 MG CHEWABLE TABLETS PO SCH (09:52)
[2019-03-14] MEDS: HEPARIN NA (PORCINE) 5,000 UNITS/ML 1ML VIAL SQ SCH ×2 (09:53→21:31)
[2019-03-14] MEDS: PHENYTOIN 100 MG/4 ML U-D CUP PO SCH ×2 (09:53→21:34)
[2019-03-14] MEDS: LABETALOL HCL 200 MG TABLET (FP) PO SCH ×2 (09:53→21:32)
[2019-03-14] MEDS: SERTRALINE HCL 50 MG TABLET (FP) PO SCH (09:53)
[2019-03-14] MEDS: FUROSEMIDE 40 MG TABLET (FP) PO SCH (09:53)
[2019-03-14] MEDS ORDERED: PT OWN MED DRAWER 7, Y5N ONE ×2 (11:34→21:33)
--- NOTE | 2019-03-14 11:45 | PN ---
Progress Note (short form) - Note Progress Note: Events noted awake baseline mentation lying down - no distress blood cultures repeated--positive Vital Signs - 24 hr 03/13/19 03/13/19 03/14/19 20:30 21:00 05:00 Temperature 98 F 100 F H Pulse Rate 80 Respiratory 18 20 Rate Blood Pressure 151/74 140/72 O2 Sat by Pulse 96 Oximetry (%) 03/14/19 03/14/19 15:17 16:57 Temperature 98.3 F 100.1 F H Pulse Rate 93 H 91 H Respiratory 18 20 Rate Blood Pressure 130/62 147/66 O2 Sat by Pulse Oximetry (%) Current Medications Generic Name Dose Route Start Last Admin Trade Name Freq PRN Reason Stop Dose Admin Acetaminophen 650 mg 03/08/19 22:46 03/13/19 18:41 Tylenol - PO 650 mg Q4H PRN Administration FEVER Aspirin 81 mg 03/09/19 10:00 03/14/19 09:52 Asa - PO 81 mg DAILY TYREE Administration Calcium Acetate 667 mg 03/09/19 08:00 03/14/19 12:34 Phoslo - PO 667 mg TIDCM TYREE Administration Furosemide 40 mg 03/09/19 10:00 03/14/19 09:53 Lasix - PO 40 mg DAILY TYREE Administration Heparin Sodium (Porcine) 5,000 unit 03/08/19 22:00 03/14/19 09:53 Heparin - SQ 5,000 unit BID TYREE Administration Heparin Sodium (Porcine) 1,000 unit 03/15/19 16:01 Heparin - IVPUSH 03/15/19 16:02 ONCE ONE Heparin Sodium (Porcine) 500 unit 03/15/19 16:15 Heparin - IVPUSH 03/15/19 18:16 Q1H TYREE Daptomycin 440 mg/ Sodium 50 mls @ 50 mls/hr 03/14/19 13:00 03/14/19 14:34 Chloride IVPB 50 mls/hr Q48H TYREE Administration Protocol Sodium Chloride 250 mls @ 3,000 mls/hr 03/14/19 16:01 Normal Saline - IV 03/15/19 16:01 PRN PRN Hypotension during Dialysis Labetalol HCl 200 mg 03/08/19 22:15 03/14/19 09:53 Normodyne - PO 200 mg BID TYREE Administration Phenytoin Sodium 200 mg 03/08/19 22:15 06/13/19 09:53 Dilantin Oral Suspension - PO 200 mg BID TYREE Administration Sertraline HCl 50 mg 03/09/19 10:00 03/14/19 09:53 Zoloft - PO 50 mg DAILY TYREE Administration Laboratory Results - last 24 hr 03/14/19 03/14/19 07:55 07:55 Sodium 143 Potassium 3.8 Chloride 103 Carbon Dioxide 33 H Anion Gap 7 L BUN 33.6 H Creatinine 5.1 H Est GFR (CKD-EPI)AfAm 13.83 Est GFR (CKD-EPI)NonAf 11.93 Random Glucose 139 H Calcium 8.5 Total Bilirubin 0.5 AST 42 H ALT 41 Alkaline Phosphatase 243 H Total Protein 6.9 Albumin 2.7 L Random Vancomycin 21.8 S1 S2 RRR Lungs clear Abd- soft, NT no edema PLAN repeated blood cultures-- positive spoke with ID-- change antibiotics to Daptomycin ordered Echo Vascular eval noted-- no signs of infection on right AVF HD per renal empiric antibiotics- during HD liver sono noted Problem List - Problems (1) Fever Code(s): R50.9 - FEVER, UNSPECIFIED Qualifiers: Fever type: unspecified Qualified Code(s): R50.9 - Fever, unspecified (2) Acute metabolic encephalopathy Code(s): G93.41 - METABOLIC ENCEPHALOPATHY (3) Altered mental status, unspecified Code(s): R41.82 - ALTERED MENTAL STATUS, UNSPECIFIED Qualifiers: Altered mental status type: unspecified Qualified Code(s): R41.82 - Altered mental status, unspecified (4) CVA, old, aphasia Code(s): I69.320 - APHASIA FOLLOWING CEREBRAL INFARCTION (5) ESRD (end stage renal disease) on dialysis Code(s): N18.6 - END STAGE RENAL DISEASE; Z99.2 - DEPENDENCE ON RENAL DIALYSIS
--- NOTE | 2019-03-14 12:08 | PN ---
Progress Note, Physician History of Present Illness: AWAKE, APHASIC LOW GRADE TEMP BC (03/12) + - Current Medication List Current Medications: Active Medications Acetaminophen (Tylenol -) 650 mg PO Q4H PRN PRN Reason: FEVER Last Admin: 03/13/19 18:41 Dose: 650 mg Aspirin (Asa -) 81 mg PO DAILY [facility] Last Admin: 03/14/19 09:52 Dose: 81 mg Atorvastatin Calcium (Lipitor -) 80 mg PO HS [facility] Last Admin: 03/13/19 21:09 Dose: 80 mg Calcium Acetate (Phoslo -) 667 mg PO TIDCM [facility] Last Admin: 03/14/19 09:52 Dose: 667 mg Furosemide (Lasix -) 40 mg PO DAILY [facility] Last Admin: 03/14/19 09:53 Dose: 40 mg Heparin Sodium (Porcine) (Heparin -) 5,000 unit SQ BID [facility] Last Admin: 03/14/19 09:53 Dose: 5,000 unit Daptomycin 440 mg/ Sodium (Chloride) 50 mls @ 50 mls/hr IVPB Q48H [facility]; Protocol Labetalol HCl (Normodyne -) 200 mg PO BID [facility] Last Admin: 03/14/19 09:53 Dose: 200 mg Phenytoin Sodium (Dilantin Oral Suspension -) 200 mg PO BID [facility] Last Admin: 03/14/19 09:53 Dose: 200 mg Sertraline HCl (Zoloft -) 50 mg PO DAILY [facility] Last Admin: 03/14/19 09:53 Dose: 50 mg - Objective Vital Signs: Vital Signs Temperature 100 F H 03/14/19 05:00 Pulse Rate 80 03/13/19 20:30 Respiratory Rate 20 03/14/19 05:00 Blood Pressure 140/72 03/14/19 05:00 O2 Sat by Pulse Oximetry (%) 96 03/13/19 21:00 Constitutional: Yes: Thin Cardiovascular: Yes: Regular Rate and Rhythm, Murmur, S1, S2 Respiratory: Yes: CTA Bilaterally Gastrointestinal: Yes: Normal Bowel Sounds, Soft Edema: No Labs: CBC, BMP 03/13/19 05:35 03/14/19 07:55 INR, PTT INR 1.07 (0.83-1.09) 03/08/19 18:10 Assessment/Plan MRSA BACTEREMIA/ PROBABLE ENDOCARDITIS S/P CVA SUBSTITUTE DAPTOMYCIN @ 8MG/KG Q48H REPEAT BC ECHO HOLD LIPITOR WHILE ON DAPTOMYCIN
--- NOTE | 2019-03-14 12:16 | ECHO ---
Name: BINU BURT I Exam:Adult Echocardiogram Study Date: 03/14/2019 08:03 AM Age: 53 yrs Reason For Study: R/O Vegetation Height: 67 in Weight: 119 lb BSA: 1.6 m2 MMode/2D Measurements & Calculations IVSd: 1.2 cm Ao root diam: 2.8 cm LVIDd: 4.0 cm LA dimension: 2.8 cm LVIDs: 2.7 cm LVPWd: 1.0 cm EDV(Teich): 69.1 ml LVOT diam: 2.0 cm ESV(Teich): 27.6 ml LAV (MOD-bp): 39.0 ml Doppler Measurements & Calculations MV E max keyshawn: 96.5 cm/sec Ao V2 max: 191.4 cm/sec MV A max keyshawn: 112.0 cm/sec Ao max P.7 mmHg MV E/A: 0.86 MV dec time: 0.08 sec CLAUDIA(V,D): 2.1 cm2 LV V1 max P.8 mmHg MR max keyshawn: 501.7 cm/sec LV V1 max: 130.0 cm/sec MR max P.7 mmHg TR max keyshawn: 229.4 cm/sec PA V2 max: 157.5 cm/sec TR max P.0 mmHg PA max P.9 mmHg Med Peak E' Keyshawn: 8.4 cm/sec PI Vmax: 71.9 cm/sec Med E/e': 11.5 Lat Peak E' Keyshawn: 9.0 cm/sec Lat E/e': 10.7 Procedure A complete two-dimensional transthoracic echocardiogram was performed (2D, M-mode, Doppler and color flow Doppler). Left Ventricle The left ventricular size, thickness and function are normal. The left ventricular ejection fraction is normal. Ejection Fraction = 60-65%. The left ventricular wall motion is normal. Right Ventricle The right ventricle is normal in size and function. Atria Normal left and right atrial size and function. Mitral Valve There is trace mitral regurgitation. Tricuspid Valve There is trace tricuspid regurgitation. Right ventricular systolic pressure is normal. Aortic Valve No hemodynamically significant valvular aortic stenosis. No aortic regurgitation is present. Pulmonic Valve The pulmonic valve is not well visualized. There is no pulmonic valvular regurgitation. Great Vessels The aortic root is normal size. Pericardium/Pleura There is no pericardial effusion. Interpretation Summary The left ventricular size, thickness and function are normal The right ventricle is normal in size and function. There is trace mitral regurgitation. There is trace tricuspid regurgitation. MD Yandel Crow 03/14/2019 12:16 PM
[2019-03-14] MEDS: DAPTOMYCIN 440 MG in SODIUM CHLORIDE 50 ML IVPB SCH (14:34)
--- NOTE | 2019-03-14 16:00 | PN ---
Progress Note, Physician History of Present Illness: Pt seen and examined at bedside. Mental status at baseline. - Current Medication List Current Medications: Active Medications Acetaminophen (Tylenol -) 650 mg PO Q4H PRN PRN Reason: FEVER Last Admin: 03/13/19 18:41 Dose: 650 mg Aspirin (Asa -) 81 mg PO DAILY [facility] Last Admin: 03/14/19 09:52 Dose: 81 mg Calcium Acetate (Phoslo -) 667 mg PO TIDCM [facility] Last Admin: 03/14/19 12:34 Dose: 667 mg Furosemide (Lasix -) 40 mg PO DAILY [facility] Last Admin: 03/14/19 09:53 Dose: 40 mg Heparin Sodium (Porcine) (Heparin -) 5,000 unit SQ BID [facility] Last Admin: 03/14/19 09:53 Dose: 5,000 unit Daptomycin 440 mg/ Sodium (Chloride) 50 mls @ 50 mls/hr IVPB Q48H [facility]; Protocol Last Admin: 03/14/19 14:34 Dose: 50 mls/hr Labetalol HCl (Normodyne -) 200 mg PO BID [facility] Last Admin: 03/14/19 09:53 Dose: 200 mg Phenytoin Sodium (Dilantin Oral Suspension -) 200 mg PO BID [facility] Last Admin: 03/14/19 09:53 Dose: 200 mg Sertraline HCl (Zoloft -) 50 mg PO DAILY [facility] Last Admin: 03/14/19 09:53 Dose: 50 mg - Objective Vital Signs: Vital Signs Temperature 98.3 F 03/14/19 15:17 Pulse Rate 93 H 03/14/19 15:17 Respiratory Rate 18 03/14/19 15:17 Blood Pressure 130/62 03/14/19 15:17 O2 Sat by Pulse Oximetry (%) 96 03/13/19 21:00 Constitutional: Yes: Calm Eyes: Yes: Conjunctiva Clear HENT: Yes: Atraumatic Neck: Yes: Supple Cardiovascular: Yes: S1, S2 Respiratory: Yes: CTA Bilaterally Gastrointestinal: Yes: Soft Genitourinary: Yes: WNL Musculoskeletal: Yes: Muscle Weakness Edema: No Integumentary: Yes: WNL Neurological: Yes: Pre-Existing Deficit Labs: CBC, BMP 03/13/19 05:35 03/14/19 07:55 INR, PTT INR 1.07 (0.83-1.09) 03/08/19 18:10 Problem List - Problems (1) Fever Code(s): R50.9 - FEVER, UNSPECIFIED Qualifiers: Fever type: unspecified Qualified Code(s): R50.9 - Fever, unspecified (2) ESRD (end stage renal disease) on dialysis Code(s): N18.6 - END STAGE RENAL DISEASE; Z99.2 - DEPENDENCE ON RENAL DIALYSIS Assessment/Plan Current Medications Generic Name Dose Route Start Last Admin Trade Name Freq PRN Reason Stop Dose Admin Acetaminophen 650 mg 03/08/19 22:46 03/13/19 18:41 Tylenol - PO 650 mg Q4H PRN Administration FEVER Aspirin 81 mg 03/09/19 10:00 03/14/19 09:52 Asa - PO 81 mg DAILY TYREE Administration Calcium Acetate 667 mg 03/09/19 08:00 03/14/19 12:34 Phoslo - PO 667 mg TIDCM TYREE Administration Furosemide 40 mg 03/09/19 10:00 03/14/19 09:53 Lasix - PO 40 mg DAILY TYREE Administration Heparin Sodium (Porcine) 5,000 unit 03/08/19 22:00 03/14/19 09:53 Heparin - SQ 5,000 unit BID TYREE Administration Daptomycin 440 mg/ Sodium 50 mls @ 50 mls/hr 03/14/19 13:00 03/14/19 14:34 Chloride IVPB 50 mls/hr Q48H TYREE Administration Protocol Labetalol HCl 200 mg 03/08/19 22:15 03/14/19 09:53 Normodyne - PO 200 mg BID TYREE Administration Phenytoin Sodium 200 mg 03/08/19 22:15 03/14/19 09:53 Dilantin Oral Suspension - PO 200 mg BID TYREE Administration Sertraline HCl 50 mg 03/09/19 10:00 03/14/19 09:53 Zoloft - PO 50 mg DAILY TYREE Administration Impression 1. ESRD 2. chol 3. hx CVA 4. HTN 5. fever 6. epilepsy 7. bacteremia Plan - HD tomorrow - ID input appreciated, r/o endocarditis, follow echo - follow cultures - abx per ID - HD 3:30 2 k bath, 1000 heparin bolus 500 per hr, right arm AVF - unclear source
[2019-03-14] MEDS ORDERED: SODIUM CHLORIDE 250 ML IV PRN (16:01)
[2019-03-15] MEDS: CALCIUM ACETATE 667 MG CAPSULE (FP) PO SCH ×3 (08:44→18:22)
--- NOTE | 2019-03-15 10:16 | PN ---
Progress Note (short form) - Note Progress Note: pt seen in dialysis comfortable all f/u noted +ve bactremia echo -ve for vegetation Vital Signs Temp 97 F L 03/15/19 06:00 Pulse 94 H 03/15/19 06:00 Resp 18 03/15/19 06:00 BP 160/76 03/15/19 06:00 Pulse Ox 96 03/14/19 21:00 Intake & Output 03/14/19 03/14/19 03/15/19 11:59 23:59 11:59 Intake Total 50 980 50 Balance 50 980 50 Intake: Oral 50 980 50 Other: Voiding Method Diaper Bowel Movement No No No Active Medications Acetaminophen (Tylenol -) 650 mg PO Q4H PRN PRN Reason: FEVER Last Admin: 03/13/19 18:41 Dose: 650 mg Aspirin (Asa -) 81 mg PO DAILY [facility] Last Admin: 03/14/19 09:52 Dose: 81 mg Calcium Acetate (Phoslo -) 667 mg PO TIDCM [facility] Last Admin: 03/15/19 08:44 Dose: 667 mg Furosemide (Lasix -) 40 mg PO DAILY [facility] Last Admin: 03/14/19 09:53 Dose: 40 mg Heparin Sodium (Porcine) (Heparin -) 5,000 unit SQ BID [facility] Last Admin: 03/14/19 21:31 Dose: 5,000 unit Heparin Sodium (Porcine) (Heparin -) 1,000 unit IVPUSH ONCE ONE Stop: 03/15/19 16:02 Heparin Sodium (Porcine) (Heparin -) 500 unit IVPUSH Q1H [facility] Stop: 03/15/19 18:16 Daptomycin 440 mg/ Sodium (Chloride) 50 mls @ 50 mls/hr IVPB Q48H [facility]; Protocol Last Admin: 03/14/19 14:34 Dose: 50 mls/hr Sodium Chloride (Normal Saline -) 250 mls @ 3,000 mls/hr IV PRN PRN PRN Reason: Hypotension during Dialysis Stop: 03/15/19 16:01 Labetalol HCl (Normodyne -) 200 mg PO BID [facility] Last Admin: 03/14/19 21:32 Dose: 200 mg Phenytoin Sodium (Dilantin Oral Suspension -) 200 mg PO BID [facility] Last Admin: 03/14/19 21:34 Dose: 200 mg Sertraline HCl (Zoloft -) 50 mg PO DAILY [facility] Last Admin: 03/14/19 09:53 Dose: 50 mg CBC, BMP 03/13/19 05:35 03/14/19 07:55 Microbiology 03/12/19 06:20 Blood Culture - Final Blood - Peripheral Venous S Aureus 03/10/19 08:03 Blood Culture - Final Blood - Peripheral Venous NO GROWTH AFTER 5 DAYS INCUBATION 03/10/19 06:23 Blood Culture - Final Blood - Peripheral Venous NO GROWTH AFTER 5 DAYS INCUBATION Physical Exam S1 S2 RRR Lungs clear Abd- soft, NT no edema Neuro- Awake/ same PLAN discussed with dr. Arizmendi continue present care Loco ? will consult cardiology will follow Problem List - Problems (1) Fever Code(s): R50.9 - FEVER, UNSPECIFIED Qualifiers: Fever type: unspecified Qualified Code(s): R50.9 - Fever, unspecified (2) Acute metabolic encephalopathy Code(s): G93.41 - METABOLIC ENCEPHALOPATHY (3) CVA, old, aphasia Code(s): I69.320 - APHASIA FOLLOWING CEREBRAL INFARCTION (4) ESRD (end stage renal disease) on dialysis Code(s): N18.6 - END STAGE RENAL DISEASE; Z99.2 - DEPENDENCE ON RENAL DIALYSIS
[2019-03-15] MEDS ORDERED: HEPARIN NA (PORCINE) 5,000 UNITS/ML 1ML VIAL IVPUSH ONE (11:30)
[2019-03-15 11:33] LABS: HEMATOCRIT 32.2 % (35.4-49); HEMOGLOBIN 10.5 GM/dL (11.7-16.9); MCH 33.1 pg (25.7-33.7); MCHC 32.7 g/dl (32.0-35.9); MEAN CELL VOLUME 101.3 fl (80-96); MEAN PLT VOLUME 8.4 fl (7.5-11.1); PLATELET COUNT 279 K/MM3 (134-434); RBC 3.18 M/mm3 (4.00-5.60); RDW 14.9 % (11.9-15.9); WHITE BLOOD COUNT 6.7 K/mm3 (4.0-10.0)
[2019-03-15 12:06] LABS: BLOOD UREA NITROGEN 63.2 mg/dL (7-18); CALCIUM 8.1 mg/dL (8.5-10.1); POTASSIUM 4.8 mmol/L (3.5-5.1)
[2019-03-15] MEDS: HEPARIN NA (PORCINE) 5,000 UNITS/ML 1ML VIAL IVPUSH SCH ×2 (12:13→12:36)
[2019-03-15 12:14] LABS: CREATININE 7.6 mg/dL (0.55-1.3)
[2019-03-15] MEDS ORDERED: PT OWN MED DRAWER 7, Y5N ONE ×3 (12:15→23:50)
--- NOTE | 2019-03-15 12:44 | CON.CARD ---
Consult Consult Specialty:: Cardiology Referred by:: Tip Gibbs MD Reason for Consultation:: Fever, MRSA bacteremia - History of Present Illness Chief Complaint: Fever History of Present Illness: 53 year old make with pmhx of esrd on HD, aphasia, cva, nephrolithiasis, htn, and hld who was referred from the [place] for fever. He is unable to give history, but is not as interactive as he normally is. he was noted to have MRSA positive blood cultures. - History Source History Provided By: Medical Record Limitations to Obtaining History: Clinical Condition - Past Medical History RN PRIVATE DUTY: Yes: CVA, Other (APHASIA) Cardio/Vascular: Yes: HTN Renal/: Yes: Renal Failure, Hemodialysis - Past Surgical History Past Surgical History: Yes: Carotid Endarterectomy - Alcohol/Substance Use Hx Alcohol Use: No - Smoking History Smoking history: Unknown if ever smoked Have you smoked in the past 12 months: No Home Medications - Allergies Allergies/Adverse Reactions: Allergies Allergy/AdvReac Type Severity Reaction Status Date / Time No Known Allergies Allergy Verified 03/08/19 18:05 - Home Medications Home Medications: Ambulatory Orders Acetaminophen [Tylenol] 650 mg PO QID PRN 03/08/19 Aspirin 81 mg PO DAILY 03/08/19 Atorvastatin Calcium 80 mg PO HS 03/08/19 Calcium Acetate [Phoslo -] 667 mg PO TIDCM 03/08/19 Furosemide [Lasix] 40 mg PO DAILY 03/08/19 Heparin - 5,000 unit SQ BID 03/08/19 Labetalol HCl [Normodyne -] 200 mg PO BID 03/08/19 Phenytoin Oral Suspension [Dilantin Oral Suspension 100 MG/4 ML] 200 mg PO BID 03/08/19 Sertraline HCl [Zoloft -] 50 mg PO DAILY 03/08/19 Family Disease History - Family Disease History Family Disease History: Other: Sister (alive and well) Vital Signs: Vital Signs Temperature 97 F L 03/15/19 06:00 Pulse Rate 94 H 03/15/19 06:00 Respiratory Rate 18 03/15/19 06:00 Blood Pressure 160/76 03/15/19 06:00 O2 Sat by Pulse Oximetry (%) 96 03/14/19 21:00 Constitutional: Yes: No Distress, Calm Neck: Yes: Supple Respiratory: Yes: Regular, CTA Bilaterally Gastrointestinal: Yes: Normal Bowel Sounds, Soft Cardiovascular: Yes: Regular Rate and Rhythm JVD: No Carotid Bruit: No Heart Sounds: Yes: S1, S2 Edema: No - Other Data Labs, Other Data: CBC, BMP 03/15/19 10:30 03/15/19 10:30 INR, PTT INR 1.07 (0.83-1.09) 03/08/19 18:10 Imaging - Results Chest X-ray: Report Reviewed (NAD) Problem List - Problems (1) MRSA bacteremia Code(s): R78.81 - BACTEREMIA (2) Fever Code(s): R50.9 - FEVER, UNSPECIFIED Qualifiers: Fever type: unspecified Qualified Code(s): R50.9 - Fever, unspecified (3) Acute metabolic encephalopathy Code(s): G93.41 - METABOLIC ENCEPHALOPATHY (4) CVA, old, aphasia Code(s): I69.320 - APHASIA FOLLOWING CEREBRAL INFARCTION (5) ESRD (end stage renal disease) on dialysis Code(s): N18.6 - END STAGE RENAL DISEASE; Z99.2 - DEPENDENCE ON RENAL DIALYSIS (6) Hypertension Code(s): I10 - ESSENTIAL (PRIMARY) HYPERTENSION Qualifiers: Hypertension type: essential hypertension Qualified Code(s): I10 - Essential (primary) hypertension (7) Seizure Code(s): R56.9 - UNSPECIFIED CONVULSIONS (8) Hyperlipidemia Code(s): E78.5 - HYPERLIPIDEMIA, UNSPECIFIED Qualifiers: Hyperlipidemia type: pure hypercholesterolemia Qualified Code(s): E78.00 - Pure hypercholesterolemia, unspecified; E78.0 - Pure hypercholesterolemia Assessment/Plan 03/14/2019 Echo: Normal LV and RV size and fxn, mild MR, TR 1. Fever, MRSA bacteremia likely skin source, r/o endocarditis 2. ESRD on HD via RUE AVF 2. chol 3. hx CVA 4. HTN 5. seizure d/o Plan 1. HD per renal 2. Daptomycin per ID input, f/u surveillance cultures and consider LAURA if bacteremia persists 3. Lipitor held while on Daptomycin 4. Continue ASA 81 qd, Lasix 40 qd, labetolol 200 bid, DVT prophylaxis 5. Thank you for consultative opportunity
[2019-03-15] MEDS: ASPIRIN 81 MG CHEWABLE TABLETS PO SCH ×2 (13:42→16:11)
--- NOTE | 2019-03-15 15:32 | PN ---
Progress Note, Physician History of Present Illness: MUCH MORE AWAKE AND ALERT APHASIC INTERMITTANT TEMPS BC (03/12) + REPEAT BC PENDING - Current Medication List Current Medications: Active Medications Acetaminophen (Tylenol -) 650 mg PO Q4H PRN PRN Reason: FEVER Last Admin: 03/13/19 18:41 Dose: 650 mg Aspirin (Asa -) 81 mg PO DAILY [facility] Last Admin: 03/15/19 13:42 Dose: Not Given Calcium Acetate (Phoslo -) 667 mg PO TIDCM [facility] Last Admin: 03/15/19 08:44 Dose: 667 mg Furosemide (Lasix -) 40 mg PO DAILY [facility] Last Admin: 03/14/19 09:53 Dose: 40 mg Heparin Sodium (Porcine) (Heparin -) 5,000 unit SQ BID [facility] Last Admin: 03/14/19 21:31 Dose: 5,000 unit Daptomycin 440 mg/ Sodium (Chloride) 50 mls @ 50 mls/hr IVPB Q48H [facility]; Protocol Last Admin: 03/14/19 14:34 Dose: 50 mls/hr Sodium Chloride (Normal Saline -) 250 mls @ 3,000 mls/hr IV PRN PRN PRN Reason: Hypotension during Dialysis Stop: 03/15/19 16:01 Labetalol HCl (Normodyne -) 200 mg PO BID [facility] Last Admin: 03/14/19 21:32 Dose: 200 mg Phenytoin Sodium (Dilantin Oral Suspension -) 200 mg PO BID [facility] Last Admin: 03/14/19 21:34 Dose: 200 mg Sertraline HCl (Zoloft -) 50 mg PO DAILY [facility] Last Admin: 03/14/19 09:53 Dose: 50 mg - Objective Vital Signs: Vital Signs Temperature 99 F 03/15/19 10:40 Pulse Rate 82 03/15/19 14:30 Respiratory Rate 18 03/15/19 14:30 Blood Pressure 124/60 03/15/19 14:30 O2 Sat by Pulse Oximetry (%) 96 03/15/19 09:00 Constitutional: Yes: No Distress Cardiovascular: Yes: Regular Rate and Rhythm, S1, S2 Respiratory: Yes: CTA Bilaterally Gastrointestinal: Yes: Normal Bowel Sounds, Soft. No: Tenderness Edema: No Labs: CBC, BMP 03/15/19 10:30 03/15/19 10:30 INR, PTT INR 1.07 (0.83-1.09) 03/08/19 18:10 Assessment/Plan MRSA BACTEREMIA/ PROBABLE ENDOCARDITIS S/P CVA CONTINUE DAPTOMYCIN @ 8MG/KG Q48H REPEAT BC ECHO HOLD LIPITOR WHILE ON DAPTOMYCIN
--- NOTE | 2019-03-15 15:58 | PN ---
Progress Note, Physician History of Present Illness: Pt seen and examined at bedside. He tolerated HD. - Current Medication List Current Medications: Active Medications Acetaminophen (Tylenol -) 650 mg PO Q4H PRN PRN Reason: FEVER Last Admin: 03/13/19 18:41 Dose: 650 mg Aspirin (Asa -) 81 mg PO DAILY [facility] Last Admin: 03/15/19 13:42 Dose: Not Given Calcium Acetate (Phoslo -) 667 mg PO TIDCM [facility] Last Admin: 03/15/19 08:44 Dose: 667 mg Furosemide (Lasix -) 40 mg PO DAILY [facility] Last Admin: 03/14/19 09:53 Dose: 40 mg Heparin Sodium (Porcine) (Heparin -) 5,000 unit SQ BID [facility] Last Admin: 03/14/19 21:31 Dose: 5,000 unit Daptomycin 440 mg/ Sodium (Chloride) 50 mls @ 50 mls/hr IVPB Q48H [facility]; Protocol Last Admin: 03/14/19 14:34 Dose: 50 mls/hr Sodium Chloride (Normal Saline -) 250 mls @ 3,000 mls/hr IV PRN PRN PRN Reason: Hypotension during Dialysis Stop: 03/15/19 16:01 Labetalol HCl (Normodyne -) 200 mg PO BID [facility] Last Admin: 03/14/19 21:32 Dose: 200 mg Phenytoin Sodium (Dilantin Oral Suspension -) 200 mg PO BID [facility] Last Admin: 03/14/19 21:34 Dose: 200 mg Sertraline HCl (Zoloft -) 50 mg PO DAILY [facility] Last Admin: 03/14/19 09:53 Dose: 50 mg - Objective Vital Signs: Vital Signs Temperature 99 F 03/15/19 10:40 Pulse Rate 82 03/15/19 14:30 Respiratory Rate 18 03/15/19 14:30 Blood Pressure 124/60 03/15/19 14:30 O2 Sat by Pulse Oximetry (%) 96 03/15/19 09:00 Constitutional: Yes: Calm Eyes: Yes: Conjunctiva Clear HENT: Yes: Atraumatic Neck: Yes: Supple Cardiovascular: Yes: S1, S2 Respiratory: Yes: CTA Bilaterally Gastrointestinal: Yes: Normal Bowel Sounds, Soft Genitourinary: Yes: Incontinence Musculoskeletal: Yes: Muscle Weakness Edema: No Neurological: Yes: Pre-Existing Deficit Labs: CBC, BMP 03/15/19 10:30 03/15/19 10:30 INR, PTT INR 1.07 (0.83-1.09) 03/08/19 18:10 Problem List - Problems (1) Fever Code(s): R50.9 - FEVER, UNSPECIFIED Qualifiers: Fever type: unspecified Qualified Code(s): R50.9 - Fever, unspecified (2) ESRD (end stage renal disease) on dialysis Code(s): N18.6 - END STAGE RENAL DISEASE; Z99.2 - DEPENDENCE ON RENAL DIALYSIS Assessment/Plan Current Medications Generic Name Dose Route Start Last Admin Trade Name Freq PRN Reason Stop Dose Admin Acetaminophen 650 mg 03/08/19 22:46 03/13/19 18:41 Tylenol - PO 650 mg Q4H PRN Administration FEVER Aspirin 81 mg 03/09/19 10:00 03/15/19 13:42 Asa - PO Not Given DAILY TYREE Calcium Acetate 667 mg 03/09/19 08:00 03/15/19 08:44 Phoslo - PO 667 mg TIDCM TYREE Administration Furosemide 40 mg 03/09/19 10:00 03/14/19 09:53 Lasix - PO 40 mg DAILY TYREE Administration Heparin Sodium (Porcine) 5,000 unit 03/08/19 22:00 03/14/19 21:31 Heparin - SQ 5,000 unit BID TYREE Administration Daptomycin 440 mg/ Sodium 50 mls @ 50 mls/hr 03/14/19 13:00 03/14/19 14:34 Chloride IVPB 50 mls/hr Q48H TYREE Administration Protocol Sodium Chloride 250 mls @ 3,000 mls/hr 03/14/19 16:01 Normal Saline - IV 03/15/19 16:01 PRN PRN Hypotension during Dialysis Labetalol HCl 200 mg 03/08/19 22:15 03/14/19 21:32 Normodyne - PO 200 mg BID TYREE Administration Phenytoin Sodium 200 mg 03/08/19 22:15 03/14/19 21:34 Dilantin Oral Suspension - PO 200 mg BID TYREE Administration Sertraline HCl 50 mg 03/09/19 10:00 03/14/19 09:53 Zoloft - PO 50 mg DAILY TYREE Administration Impression 1. ESRD 2. chol 3. hx CVA 4. HTN 5. fever 6. epilepsy 7. bacteremia Plan - HD today - next HD is on Monday, will see at that time - cont renal diet - abx per ID - cardio input appreciated - HD 3:30 2 k bath, 1000 heparin bolus 500 per hr, right arm AVF - unclear source
[2019-03-15] MEDS: SERTRALINE HCL 50 MG TABLET (FP) PO SCH (16:11)
[2019-03-15] MEDS: FUROSEMIDE 40 MG TABLET (FP) PO SCH (16:11)
[2019-03-15] MEDS: HEPARIN NA (PORCINE) 5,000 UNITS/ML 1ML VIAL SQ SCH (16:12)
[2019-03-15] MEDS: PHENYTOIN 100 MG/4 ML U-D CUP PO SCH (16:15)
[2019-03-15] MEDS: LABETALOL HCL 200 MG TABLET (FP) PO SCH (16:15)
[2019-03-16] MEDS: LABETALOL HCL 200 MG TABLET (FP) PO SCH ×3 (00:48→22:12)
[2019-03-16] MEDS: PHENYTOIN 100 MG/4 ML U-D CUP PO SCH ×3 (00:48→22:12)
[2019-03-16] MEDS: ACETAMINOPHEN 325 MG TABLET (FP) PO PRN (00:53)
[2019-03-16] MEDS: ASPIRIN 81 MG CHEWABLE TABLETS PO SCH (10:38)
[2019-03-16] MEDS: CALCIUM ACETATE 667 MG CAPSULE (FP) PO SCH ×3 (10:38→16:42)
[2019-03-16] MEDS: SERTRALINE HCL 50 MG TABLET (FP) PO SCH (10:38)
[2019-03-16] MEDS: FUROSEMIDE 40 MG TABLET (FP) PO SCH (10:38)
--- NOTE | 2019-03-16 12:49 | PN ---
Progress Note (short form) - Note Progress Note: pt seen/ examined awake/ comfortable denies pain afebrile cardiology consult noted/ appreciated Vital Signs Temp 99 F 03/16/19 06:00 Pulse 88 03/16/19 06:00 Resp 20 03/16/19 06:00 BP 137/57 L 03/16/19 06:00 Pulse Ox 96 03/15/19 21:00 Intake & Output 03/15/19 03/16/19 03/16/19 23:59 11:59 23:59 Intake Total 310 318 Balance 310 318 Intake: IV 10 Saline Lock 10 IVPB 100 Oral 200 Oral Supplement 318 Other: Voiding Method Diaper Diaper # Unmeasured Voids Void 0 Bowel Movement No No Active Medications Acetaminophen (Tylenol -) 650 mg PO Q4H PRN PRN Reason: FEVER Last Admin: 03/16/19 00:53 Dose: 650 mg Aspirin (Asa -) 81 mg PO DAILY [facility] Last Admin: 03/16/19 10:38 Dose: 81 mg Calcium Acetate (Phoslo -) 667 mg PO TIDCM [facility] Last Admin: 03/16/19 10:38 Dose: 667 mg Furosemide (Lasix -) 40 mg PO DAILY [facility] Last Admin: 03/16/19 10:38 Dose: 40 mg Daptomycin 440 mg/ Sodium (Chloride) 50 mls @ 50 mls/hr IVPB Q48H [facility]; Protocol Last Admin: 03/14/19 14:34 Dose: 50 mls/hr Sodium Chloride (Normal Saline -) 250 mls @ 3,000 mls/hr IV PRN PRN PRN Reason: Hypotension during Dialysis Stop: 03/15/19 16:01 Labetalol HCl (Normodyne -) 200 mg PO BID [facility] Last Admin: 03/16/19 10:38 Dose: 200 mg Phenytoin Sodium (Dilantin Oral Suspension -) 200 mg PO BID [facility] Last Admin: 03/16/19 10:38 Dose: 200 mg Sertraline HCl (Zoloft -) 50 mg PO DAILY [facility] Last Admin: 03/16/19 10:38 Dose: 50 mg CBC, BMP 03/15/19 10:30 03/15/19 10:30 Microbiology 03/15/19 10:45 Blood Culture - Preliminary Blood - Peripheral Venous NO GROWTH OBTAINED AFTER 24 HOURS, INCUBATION TO CONTINUE FOR 4 DAYS. 03/15/19 10:30 Blood Culture - Preliminary Blood - Peripheral Venous NO GROWTH OBTAINED AFTER 24 HOURS, INCUBATION TO CONTINUE FOR 4 DAYS. 03/12/19 06:15 Blood Culture - Final Blood - Peripheral Venous S Aureus 03/12/19 06:20 Blood Culture - Final Blood - Peripheral Venous Mr Novoa Aureus Physical Exam S1 S2 RRR Lungs clear Abd- soft, NT no edema Neuro- Awake/ PLAN Stable continue present care abx Monitor vanco trough will follow discussed with pts daughter also Problem List - Problems (1) Fever Code(s): R50.9 - FEVER, UNSPECIFIED Qualifiers: Fever type: unspecified Qualified Code(s): R50.9 - Fever, unspecified (2) Acute metabolic encephalopathy Code(s): G93.41 - METABOLIC ENCEPHALOPATHY (3) CVA, old, aphasia Code(s): I69.320 - APHASIA FOLLOWING CEREBRAL INFARCTION (4) ESRD (end stage renal disease) on dialysis Code(s): N18.6 - END STAGE RENAL DISEASE; Z99.2 - DEPENDENCE ON RENAL DIALYSIS
--- NOTE | 2019-03-16 13:59 | PN ---
Progress Note (short form) - Note Progress Note: nad dialysis via right AVG Vital Signs Period Temp Pulse Resp BP Sys/Hu Pulse Ox Last 24 Hr 98 F-100.3 F 80-93 18-20 123-146/57-74 96-98 cor-rrr lungs clear abd soft,nt ext no edema right avg with area of ulceration upper aspect of the graft CBC, BMP 03/15/19 10:30 03/15/19 10:30 Microbiology 03/15/19 10:45 Blood - Peripheral Venous Blood Culture - Preliminary NO GROWTH OBTAINED AFTER 24 HOURS, INCUBATION TO CONTINUE FOR 4 DAYS. 03/15/19 10:30 Blood - Peripheral Venous Blood Culture - Preliminary NO GROWTH OBTAINED AFTER 24 HOURS, INCUBATION TO CONTINUE FOR 4 DAYS. 03/12/19 06:15 Blood - Peripheral Venous Blood Culture - Final S Aureus 03/12/19 06:20 Blood - Peripheral Venous Blood Culture - Final S Aureus 03/10/19 08:03 Blood - Peripheral Venous Blood Culture - Final NO GROWTH AFTER 5 DAYS INCUBATION 03/10/19 06:23 Blood - Peripheral Venous Blood Culture - Final NO GROWTH AFTER 5 DAYS INCUBATION 03/08/19 18:10 Blood - Peripheral Venous Blood Culture - Final Staphylococcus Latex Coag Pos 03/08/19 18:10 Blood - Peripheral Venous Blood Culture - Final S Aureus 03/08/19 20:00 Urine - Urine - Catheterized Urine Culture - Final NO GROWTH OBTAINED a/p MRSA bacteremia ?source- suspect avg infection ulcer noted esrd/hd repeat blood cultures pending continue daptomycin check esr/crp TTE unrevealing vascular surgery to see avg today d/w Dr Gibbs
--- NOTE | 2019-03-16 14:31 | RAPID ---
<Eliceo Devine - Last Filed: 03/16/19 14:29> Physical Examination Vital Signs: Vital Signs Temperature 98.7 F 03/16/19 10:00 Pulse Rate 92 H 03/16/19 10:00 Respiratory Rate 20 03/16/19 10:00 Blood Pressure 146/66 03/16/19 10:00 O2 Sat by Pulse Oximetry (%) 98 03/16/19 09:00 Findings/Remarks: Called to at 2:18pm for bleeding from RUE AV fistula. Hemostasis had been achieved by nursing staff by time of encounter. Patient at baseline reported non -interactive mentation. BP 134/52, HR 91. CBC/diff ordered. Vascular surgery contacted. Gen: awake, non-interactive CV: borderline tachycardic Pulm: CTA b/l Ext: ulcer over RUE AV fistula site Labs: CBC, BMP 03/15/19 10:30 03/15/19 10:30 <Sumit Heredia - Last Filed: 03/18/19 18:44> Physical Examination Vital Signs: Findings/Remarks: Dr. Jc was called to evaluate fistula. PCP dr. Gibbs was called and came to bedside, and assumed care. Labs: CBC, BMP 03/17/19 20:45 03/17/19 19:37 Critical Care Total Critical Care Time (in minutes): 25
--- NOTE | 2019-03-16 15:18 | PN ---
Progress Note, Physician Chief Complaint: bleeding right avf - Current Medication List Current Medications: Active Medications Acetaminophen (Tylenol -) 650 mg PO Q4H PRN PRN Reason: FEVER Last Admin: 03/16/19 00:53 Dose: 650 mg Aspirin (Asa -) 81 mg PO DAILY [facility] Last Admin: 03/16/19 10:38 Dose: 81 mg Calcium Acetate (Phoslo -) 667 mg PO TIDCM [facility] Last Admin: 03/16/19 13:26 Dose: 667 mg Furosemide (Lasix -) 40 mg PO DAILY [facility] Last Admin: 03/16/19 10:38 Dose: 40 mg Daptomycin 440 mg/ Sodium (Chloride) 50 mls @ 50 mls/hr IVPB Q48H [facility]; Protocol Last Admin: 03/14/19 14:34 Dose: 50 mls/hr Sodium Chloride (Normal Saline -) 250 mls @ 3,000 mls/hr IV PRN PRN PRN Reason: Hypotension during Dialysis Stop: 03/15/19 16:01 Labetalol HCl (Normodyne -) 200 mg PO BID [facility] Last Admin: 03/16/19 10:38 Dose: 200 mg Phenytoin Sodium (Dilantin Oral Suspension -) 200 mg PO BID [facility] Last Admin: 03/16/19 10:38 Dose: 200 mg Sertraline HCl (Zoloft -) 50 mg PO DAILY [facility] Last Admin: 03/16/19 10:38 Dose: 50 mg - Objective Vital Signs: Vital Signs Temperature 98.0 F 03/16/19 14:51 Pulse Rate 92 H 03/16/19 14:51 Respiratory Rate 20 03/16/19 14:51 Blood Pressure 138/65 03/16/19 14:51 O2 Sat by Pulse Oximetry (%) 98 03/16/19 09:00 Constitutional: Yes: Well Nourished Eyes: Yes: WNL HENT: Yes: WNL Neck: Yes: WNL Cardiovascular: Yes: WNL Respiratory: Yes: WNL Gastrointestinal: Yes: WNL ...Rectal Exam: Yes: WNL Genitourinary: Yes: WNL Musculoskeletal: Yes: WNL Extremities: Yes: WNL (right arm avf - bleeding) Edema: No Peripheral Pulses WNL: Yes Integumentary: Yes: WNL Wound/Incision: Yes: Clean/Dry Neurological: Yes: WNL ...Motor Strength: WNL Psychiatric: Yes: WNL Labs: CBC, BMP 03/15/19 10:30 03/15/19 10:30 INR, PTT INR 1.07 (0.83-1.09) 03/08/19 18:10 Problem List - Problems (1) MRSA bacteremia Assessment/Plan: Bleeding left avf with MRSA bacteremia. 2-0 silk suture placed over the bleeding scab. The AVF will need to be closed this week. the proximal portion can be used for HD. once bacteremia resolves, we can place PC. Homer Jc DO Code(s): R78.81 - BACTEREMIA
[2019-03-16] MEDS: DAPTOMYCIN 440 MG in SODIUM CHLORIDE 50 ML IVPB SCH (15:29)
[2019-03-16 15:54] LABS: BASO % 0.9 % (0-2.0); EOS % 4.9 % (0-4.5); HEMATOCRIT 32.2 % (35.4-49); HEMOGLOBIN 10.6 GM/dL (11.7-16.9); LYMPH % 11.7 % (8-40); MCH 33.5 pg (25.7-33.7); MEAN CELL VOLUME 101.5 fl (80-96); MEAN PLT VOLUME 8.4 fl (7.5-11.1); MONO % 12.9 % (3.8-10.2); NEUT % 69.6 % (42.8-82.8); PLATELET COUNT 283 K/MM3 (134-434); RBC 3.17 M/mm3 (4.00-5.60); RDW 15.3 % (11.9-15.9); WHITE BLOOD COUNT 6.8 K/mm3 (4.0-10.0)
[2019-03-17 08:19] LABS: HEMATOCRIT 30.5 % (35.4-49); MCH 32.6 pg (25.7-33.7); MCHC 32.7 g/dl (32.0-35.9); MEAN CELL VOLUME 99.5 fl (80-96); MEAN PLT VOLUME 8.3 fl (7.5-11.1); RBC 3.07 M/mm3 (4.00-5.60); RDW 15.3 % (11.9-15.9); WHITE BLOOD COUNT 8.3 K/mm3 (4.0-10.0)
[2019-03-17] MEDS ORDERED: PT OWN MED DRAWER 7, Y5N ONE (08:54)
[2019-03-17] MEDS: CALCIUM ACETATE 667 MG CAPSULE (FP) PO SCH ×3 (08:55→18:00)
[2019-03-17] MEDS: ASPIRIN 81 MG CHEWABLE TABLETS PO SCH (09:01)
[2019-03-17] MEDS: SERTRALINE HCL 50 MG TABLET (FP) PO SCH (09:01)
[2019-03-17] MEDS: LABETALOL HCL 200 MG TABLET (FP) PO SCH ×2 (09:01→22:20)
[2019-03-17] MEDS: FUROSEMIDE 40 MG TABLET (FP) PO SCH (09:01)
[2019-03-17] MEDS: PHENYTOIN 100 MG/4 ML U-D CUP PO SCH ×2 (09:02→22:21)
[2019-03-17 09:11] LABS: PLATELET COUNT 312 K/MM3 (134-434)
--- NOTE | 2019-03-17 11:11 | PN ---
Progress Note (short form) - Note Progress Note: pt seen/ examined awake/ comfortable Vital Signs Temp 99.8 F H 03/17/19 06:17 Pulse 86 03/17/19 06:17 Resp 20 03/17/19 08:34 BP 140/65 03/17/19 06:17 Pulse Ox 96 03/17/19 08:34 Intake & Output 03/16/19 03/16/19 03/17/19 11:59 23:59 11:59 Intake Total 318 1168 500 Balance 318 1168 500 Intake: IVPB 100 Oral 750 500 Oral Supplement 318 318 Other: Voiding Method Diaper Diaper Incontinent # Unmeasured Voids Void 2 1 Bowel Movement No Yes # Bowel Movements 1 Active Medications Acetaminophen (Tylenol -) 650 mg PO Q4H PRN PRN Reason: FEVER Last Admin: 03/16/19 00:53 Dose: 650 mg Aspirin (Asa -) 81 mg PO DAILY [facility] Last Admin: 03/17/19 09:01 Dose: 81 mg Calcium Acetate (Phoslo -) 667 mg PO TIDCM [facility] Last Admin: 03/17/19 08:55 Dose: 667 mg Furosemide (Lasix -) 40 mg PO DAILY [facility] Last Admin: 03/17/19 09:01 Dose: 40 mg Daptomycin 440 mg/ Sodium (Chloride) 50 mls @ 50 mls/hr IVPB Q48H [facility]; Protocol Last Admin: 03/16/19 15:29 Dose: 50 mls/hr Sodium Chloride (Normal Saline -) 250 mls @ 3,000 mls/hr IV PRN PRN PRN Reason: Hypotension during Dialysis Stop: 03/15/19 16:01 Labetalol HCl (Normodyne -) 200 mg PO BID [facility] Last Admin: 03/17/19 09:01 Dose: 200 mg Phenytoin Sodium (Dilantin Oral Suspension -) 200 mg PO BID [facility] Last Admin: 03/17/19 09:02 Dose: 200 mg Sertraline HCl (Zoloft -) 50 mg PO DAILY [facility] Last Admin: 03/17/19 09:01 Dose: 50 mg CBC, BMP 03/17/19 07:12 03/15/19 10:30 Microbiology 03/15/19 10:45 Blood Culture - Final Blood - Peripheral Venous Presumptive Mrsa (Pbp2a Pos) 03/15/19 10:30 Blood Culture - Preliminary Blood - Peripheral Venous NO GROWTH OBTAINED AFTER 24 HOURS, INCUBATION TO CONTINUE FOR 4 DAYS. Physical Exam S1 S2 RRR Lungs clear Abd- soft, NT no edema Neuro- Awake/ PLAN persistent bactremia mrsa + Infected avg- likely need to be taken out discussed with Dr. Posada / Dr Hosea painter dialysis per renal will follow Problem List - Problems (1) Fever Code(s): R50.9 - FEVER, UNSPECIFIED Qualifiers: Fever type: unspecified Qualified Code(s): R50.9 - Fever, unspecified (2) Acute metabolic encephalopathy Code(s): G93.41 - METABOLIC ENCEPHALOPATHY (3) CVA, old, aphasia Code(s): I69.320 - APHASIA FOLLOWING CEREBRAL INFARCTION (4) ESRD (end stage renal disease) on dialysis Code(s): N18.6 - END STAGE RENAL DISEASE; Z99.2 - DEPENDENCE ON RENAL DIALYSIS
--- NOTE | 2019-03-17 12:23 | PN ---
Progress Note (short form) - Note Progress Note: nad episode of bleeding yesterday from avg seen by Dr Peralta Vital Signs Period Temp Pulse Resp BP Sys/Hu Pulse Ox Last 24 Hr 98.0 F-99.8 F 86-110 20-20 124-140/52-74 96-98 cor-rrr llungs clear abd soft,nt ext dressing right arm avg, left arm avf noted- no erythema CBC, BMP 03/17/19 07:12 03/15/19 10:30 Laboratory Tests 03/17/19 03/17/19 07:10 07:12 ESR 60 H C-Reactive Protein 9.6 H Microbiology 03/15/19 10:30 Blood - Peripheral Venous Blood Culture - Preliminary NO GROWTH OBTAINED AFTER 48 HOURS, INCUBATION TO CONTINUE FOR 3 DAYS. 03/15/19 10:45 Blood - Peripheral Venous Blood Culture - Final Presumptive Mrsa (Pbp2a Pos) 03/12/19 06:15 Blood - Peripheral Venous Blood Culture - Final S Aureus 03/12/19 06:20 Blood - Peripheral Venous Blood Culture - Final S Aureus 03/10/19 08:03 Blood - Peripheral Venous Blood Culture - Final NO GROWTH AFTER 5 DAYS INCUBATION 03/10/19 06:23 Blood - Peripheral Venous Blood Culture - Final NO GROWTH AFTER 5 DAYS INCUBATION 03/08/19 18:10 Blood - Peripheral Venous Blood Culture - Final Staphylococcus Latex Coag Pos 03/08/19 18:10 Blood - Peripheral Venous Blood Culture - Final S Aureus 03/08/19 20:00 Urine - Urine - Catheterized Urine Culture - Final NO GROWTH OBTAINED a/p MRSA bacteremia-persistent suspect avg infection ulcer noted-will need to be revised by vascular surgery- will d/w dr peralta- esrd/hd continue daptomycin repeat blood cultures in am suspect bacteremia will not clear until avg is revised d/w dr vega
[2019-03-17] MEDS ORDERED: SODIUM CHLORIDE 250 ML IV PRN (15:06)
--- NOTE | 2019-03-17 15:06 | PN ---
Progress Note (short form) - Note Progress Note: s/p bleeding avf seen by vas surgeon bleeding stopped 1. ESRD 2. chol 3. hx CVA 4. HTN 5. fever 6. epilepsy 7. bacteremia Current Medications Acetaminophen (Tylenol -) 650 mg PO Q4H PRN PRN Reason: FEVER Last Admin: 03/16/19 00:53 Dose: 650 mg Aspirin (Asa -) 81 mg PO DAILY [facility] Last Admin: 03/17/19 09:01 Dose: 81 mg Calcium Acetate (Phoslo -) 667 mg PO TIDCM [facility] Last Admin: 03/17/19 12:27 Dose: 667 mg Furosemide (Lasix -) 40 mg PO DAILY [facility] Last Admin: 03/17/19 09:01 Dose: 40 mg Daptomycin 440 mg/ Sodium (Chloride) 50 mls @ 50 mls/hr IVPB Q48H [facility]; Protocol Last Admin: 03/16/19 15:29 Dose: 50 mls/hr Sodium Chloride (Normal Saline -) 250 mls @ 3,000 mls/hr IV PRN PRN PRN Reason: Hypotension during Dialysis Stop: 03/15/19 16:01 Labetalol HCl (Normodyne -) 200 mg PO BID [facility] Last Admin: 03/17/19 09:01 Dose: 200 mg Phenytoin Sodium (Dilantin Oral Suspension -) 200 mg PO BID [facility] Last Admin: 03/17/19 09:02 Dose: 200 mg Sertraline HCl (Zoloft -) 50 mg PO DAILY [facility] Last Admin: 03/17/19 09:01 Dose: 50 mg Last Vital Signs Temp Pulse Resp BP Pulse Ox 98 F 75 20 142/65 96 03/17/19 14:00 03/17/19 14:00 03/17/19 14:00 03/17/19 14:00 03/17/19 08:34 alert in nad lungs clear heart reg abdo soft nontender ext no edema CBC, BMP 03/17/19 07:12 03/15/19 10:30 IMP esrd sepsis Plan- maintenance HD
--- NOTE | 2019-03-17 18:56 | RAPID ---
Physical Examination Vital Signs: Vital Signs Temperature 98.3 F 03/17/19 17:45 Pulse Rate 94 H 03/17/19 17:45 Respiratory Rate 20 03/17/19 17:45 Blood Pressure 127/72 03/17/19 17:45 O2 Sat by Pulse Oximetry (%) 96 03/17/19 08:34 Findings/Remarks: Rapid response called to the floor. Pt seen with rupture of R arm AV fistula. Pt seen awake and alert, but nonverbal at baseline. Pressure applied to wound, tourniquet placed. VS 124/58, repeat 135/55 HR 85 98% RA No acute distress. Comfortable. Bleeding seen at AV fistula site on R arm. A/P: -Dr. Jc contacted, advised to keep pressure dressing with USMAN bandage. Tourniquet removed. Ice pack placed on top. Pt remained hemodynamically stable, stasis achieved -CBC/CMP/Mag/Phos; follow up results -Per Dr. Jc, fistula will be closed tomorrow Labs: CBC, BMP 03/17/19 07:12 03/15/19 10:30
[2019-03-17 20:27] LABS: ALBUMIN 2.3 g/dl (3.4-5.0); BILIRUBIN,TOTAL 0.2 mg/dL (0.2-1); BLOOD UREA NITROGEN 75.1 mg/dL (7-18); CALCIUM 8.2 mg/dL (8.5-10.1); TOT PROT 6.2 g/dl (6.4-8.2)
[2019-03-17 20:28] LABS: MAGNESIUM 2.5 mg/dL (1.8-2.4); POTASSIUM 5.6 mmol/L (3.5-5.1)
[2019-03-17 20:31] LABS: CREATININE 8.4 mg/dL (0.55-1.3)
--- NOTE | 2019-03-17 20:50 | PN ---
Progress Note, Physician Chief Complaint: Aphasic; moves head forward when being spoken to; unable to make needs known. History of Present Illness: The patient is a 53 year old black male, from [facility], with a significant PMH of ESRD on HD MWF, Aphasia, CVA x2 with LE weakness, bilateral LE atrophy, renal stones, HTN, and HLD, who presents to the emergency department on BIBA with a rectal fever of 103 this morning. Pt is accompanied by mother who states his fever started today. She has not noticed any other symptoms. No cough, no vomiting, no diarrhea. Pt unable to contribute additional history. Allergies: NKDA Past surgical history: cervical discectomy PCP: Tip Toro - Current Medication List Current Medications: Active Medications Acetaminophen (Tylenol -) 650 mg PO Q4H PRN PRN Reason: FEVER Last Admin: 03/16/19 00:53 Dose: 650 mg Aspirin (Asa -) 81 mg PO DAILY [facility] Last Admin: 03/17/19 09:01 Dose: 81 mg Calcium Acetate (Phoslo -) 667 mg PO TIDCM [facility] Last Admin: 03/17/19 18:00 Dose: 667 mg Furosemide (Lasix -) 40 mg PO DAILY [facility] Last Admin: 03/17/19 09:01 Dose: 40 mg Daptomycin 440 mg/ Sodium (Chloride) 50 mls @ 50 mls/hr IVPB Q48H [facility]; Protocol Last Admin: 03/16/19 15:29 Dose: 50 mls/hr Sodium Chloride (Normal Saline -) 250 mls @ 3,000 mls/hr IV PRN PRN PRN Reason: Hypotension during Dialysis Stop: 03/18/19 15:06 Labetalol HCl (Normodyne -) 200 mg PO BID [facility] Last Admin: 03/17/19 09:01 Dose: 200 mg Phenytoin Sodium (Dilantin Oral Suspension -) 200 mg PO BID [facility] Last Admin: 03/17/19 09:02 Dose: 200 mg Sertraline HCl (Zoloft -) 50 mg PO DAILY [facility] Last Admin: 03/17/19 09:01 Dose: 50 mg - Objective Vital Signs: Vital Signs Temperature 98.3 F 03/17/19 17:45 Pulse Rate 94 H 03/17/19 17:45 Respiratory Rate 20 03/17/19 17:45 Blood Pressure 127/72 03/17/19 17:45 O2 Sat by Pulse Oximetry (%) 96 03/17/19 08:34 Constitutional: Yes: Thin Eyes: Yes: WNL HENT: Yes: WNL Neck: No: Rigid Cardiovascular: Yes: Regular Rate and Rhythm Respiratory: Yes: WNL Gastrointestinal: Yes: Soft Genitourinary: No: Anuria Musculoskeletal: Yes: Muscle Weakness Extremities: Yes: Shortened, Other (atrophied bilaterally) Peripheral Pulses WNL: No Integumentary: Yes: WNL Neurological: Yes: Weakness Psychiatric: Yes: Other Labs: CBC, BMP 03/17/19 07:12 03/17/19 19:37 INR, PTT INR 1.07 (0.83-1.09) 03/08/19 18:10 Abnormal Lab Results 03/17/19 03/17/19 03/17/19 07:10 07:12 07:12 RBC 3.07 L Hgb 10.0 L Hct 30.5 L MCV 99.5 H ESR 60 H Potassium BUN Creatinine Random Glucose Calcium Phosphorus Magnesium Alkaline Phosphatase C-Reactive Protein 9.6 H Total Protein Albumin 03/17/19 19:37 RBC Hgb Hct MCV ESR Potassium 5.6 H BUN 75.1 H Creatinine 8.4 H* Random Glucose 202 H Calcium 8.2 L Phosphorus 2.0 L Magnesium 2.5 H Alkaline Phosphatase 189 H C-Reactive Protein Total Protein 6.2 L Albumin 2.3 L - ....Imaging Chest X-ray: Image Reviewed Ultrasound: Report Reviewed (ECHO: normal LVEF; no vegetations mentioned.) EKG: Image Reviewed (NSR; normal study) Problem List - Problems (1) Atrophy of muscle of both lower legs Code(s): M62.561 - MUSCLE WASTING AND ATROPHY, NEC, RIGHT LOWER LEG; M62.562 - MUSCLE WASTING AND ATROPHY, NEC, LEFT LOWER LEG (2) Fever Assessment/Plan: Temp 99.8 F early this am. On antibiotics. Code(s): R50.9 - FEVER, UNSPECIFIED Qualifiers: Fever type: unspecified Qualified Code(s): R50.9 - Fever, unspecified (3) MRSA bacteremia Assessment/Plan: On daptomycin. Temp 99.8 early this morning. No vegetations mentioned on TTE; clinical course to determine need for LAURA. Code(s): R78.81 - BACTEREMIA (4) Altered mental status, unspecified Code(s): R41.82 - ALTERED MENTAL STATUS, UNSPECIFIED Qualifiers: Altered mental status type: unspecified Qualified Code(s): R41.82 - Altered mental status, unspecified (5) ESRD (end stage renal disease) on dialysis Code(s): N18.6 - END STAGE RENAL DISEASE; Z99.2 - DEPENDENCE ON RENAL DIALYSIS (6) Weakness generalized Code(s): R53.1 - WEAKNESS (7) Hypertension Code(s): I10 - ESSENTIAL (PRIMARY) HYPERTENSION Qualifiers: Hypertension type: essential hypertension Qualified Code(s): I10 - Essential (primary) hypertension (8) Seizure Code(s): R56.9 - UNSPECIFIED CONVULSIONS
[2019-03-17 21:10] LABS: BASO % 1.1 % (0-2.0); EOS % 5.7 % (0-4.5); HEMATOCRIT 29.2 % (35.4-49); HEMOGLOBIN 9.7 GM/dL (11.7-16.9); LYMPH % 18.3 % (8-40); MCH 33.1 pg (25.7-33.7); MCHC 33.1 g/dl (32.0-35.9); MEAN CELL VOLUME 100.1 fl (80-96); MEAN PLT VOLUME 7.8 fl (7.5-11.1); MONO % 11.3 % (3.8-10.2); NEUT % 63.6 % (42.8-82.8); PLATELET COUNT 297 K/MM3 (134-434); RBC 2.92 M/mm3 (4.00-5.60); WHITE BLOOD COUNT 6.3 K/mm3 (4.0-10.0)
[2019-03-18] MEDS: CALCIUM ACETATE 667 MG CAPSULE (FP) PO SCH ×4 (09:04→20:20)
[2019-03-18] MEDS: SERTRALINE HCL 50 MG TABLET (FP) PO SCH (09:04)
--- NOTE | 2019-03-18 09:16 | PN ---
Progress Note (short form) - Note Progress Note: pt seen/ examined bleeding from avg again today For OR today-- removal and permacath Labs/ cultures being send now Vital Signs Temp 97.7 F 03/18/19 07:01 Pulse 82 03/18/19 07:01 Resp 18 03/18/19 07:01 BP 160/76 03/18/19 07:01 Pulse Ox 98 03/17/19 21:00 Intake & Output 03/17/19 03/17/19 03/18/19 11:59 23:59 11:59 Intake Total 500 1100 150 Balance 500 1100 150 Intake: Oral 500 1100 150 Other: Voiding Method Incontinent Diaper # Unmeasured Voids Void 1 2 # Bowel Movements 1 Active Medications Acetaminophen (Tylenol -) 650 mg PO Q4H PRN PRN Reason: FEVER Last Admin: 03/16/19 00:53 Dose: 650 mg Aspirin (Asa -) 81 mg PO DAILY [facility] Last Admin: 03/17/19 09:01 Dose: 81 mg Calcium Acetate (Phoslo -) 667 mg PO TIDCM [facility] Last Admin: 03/18/19 09:04 Dose: Not Given Furosemide (Lasix -) 40 mg PO DAILY [facility] Last Admin: 03/17/19 09:01 Dose: 40 mg Daptomycin 440 mg/ Sodium (Chloride) 50 mls @ 50 mls/hr IVPB Q48H [facility]; Protocol Last Admin: 03/16/19 15:29 Dose: 50 mls/hr Sodium Chloride (Normal Saline -) 250 mls @ 3,000 mls/hr IV PRN PRN PRN Reason: Hypotension during Dialysis Stop: 03/18/19 15:06 Labetalol HCl (Normodyne -) 200 mg PO BID [facility] Last Admin: 03/17/19 22:20 Dose: 200 mg Phenytoin Sodium (Dilantin Oral Suspension -) 200 mg PO BID [facility] Last Admin: 03/17/19 22:21 Dose: 200 mg Sertraline HCl (Zoloft -) 50 mg PO DAILY [facility] Last Admin: 03/18/19 09:04 Dose: Not Given CBC, BMP 03/17/19 20:45 03/17/19 19:37 Microbiology 03/15/19 10:30 Blood Culture - Preliminary Blood - Peripheral Venous NO GROWTH OBTAINED AFTER 48 HOURS, INCUBATION TO CONTINUE FOR 3 DAYS. 03/15/19 10:45 Blood Culture - Final Blood - Peripheral Venous Presumptive Mrsa (Pbp2a Pos) Physical Exam S1 S2 RRR Lungs clear Abd- soft, NT no edema Neuro- Awake/ PLAN persistent bactremia mrsa + Infected avg- likely for OR today abx dialysis per renal will follow Problem List - Problems (1) Fever Code(s): R50.9 - FEVER, UNSPECIFIED Qualifiers: Fever type: unspecified Qualified Code(s): R50.9 - Fever, unspecified (2) Acute metabolic encephalopathy Code(s): G93.41 - METABOLIC ENCEPHALOPATHY (3) CVA, old, aphasia Code(s): I69.320 - APHASIA FOLLOWING CEREBRAL INFARCTION (4) ESRD (end stage renal disease) on dialysis Code(s): N18.6 - END STAGE RENAL DISEASE; Z99.2 - DEPENDENCE ON RENAL DIALYSIS
[2019-03-18] MEDS ORDERED: PT OWN MED DRAWER 7, Y5N ONE ×3 (09:19→22:08)
[2019-03-18] MEDS: FUROSEMIDE 40 MG TABLET (FP) PO SCH (09:23)
[2019-03-18] MEDS: PHENYTOIN 100 MG/4 ML U-D CUP PO SCH ×2 (09:23→22:20)
[2019-03-18] MEDS: LABETALOL HCL 200 MG TABLET (FP) PO SCH ×2 (09:23→22:19)
[2019-03-18] MEDS: ASPIRIN 81 MG CHEWABLE TABLETS PO SCH (09:28)
--- NOTE | 2019-03-18 10:24 | PN ---
Progress Note, Physician Chief Complaint: Events noted Nonverbal Not in distress History of Present Illness: Patient was seen and examined. Chart was reviewed - Current Medication List Current Medications: Active Medications Acetaminophen (Tylenol -) 650 mg PO Q4H PRN PRN Reason: FEVER Last Admin: 03/16/19 00:53 Dose: 650 mg Aspirin (Asa -) 81 mg PO DAILY [facility] Last Admin: 03/18/19 09:28 Dose: Not Given Calcium Acetate (Phoslo -) 667 mg PO TIDCM [facility] Last Admin: 03/18/19 09:04 Dose: Not Given Furosemide (Lasix -) 40 mg PO DAILY [facility] Last Admin: 03/18/19 09:23 Dose: 40 mg Daptomycin 440 mg/ Sodium (Chloride) 50 mls @ 50 mls/hr IVPB Q48H [facility]; Protocol Last Admin: 03/16/19 15:29 Dose: 50 mls/hr Sodium Chloride (Normal Saline -) 250 mls @ 3,000 mls/hr IV PRN PRN PRN Reason: Hypotension during Dialysis Stop: 03/18/19 15:06 Labetalol HCl (Normodyne -) 200 mg PO BID [facility] Last Admin: 03/18/19 09:23 Dose: 200 mg Phenytoin Sodium (Dilantin Oral Suspension -) 200 mg PO BID [facility] Last Admin: 03/18/19 09:23 Dose: 200 mg Sertraline HCl (Zoloft -) 50 mg PO DAILY [facility] Last Admin: 03/18/19 09:04 Dose: Not Given - Objective Vital Signs: Vital Signs Temperature 97.7 F 03/18/19 07:01 Pulse Rate 82 03/18/19 07:01 Respiratory Rate 18 03/18/19 07:01 Blood Pressure 160/76 03/18/19 07:01 O2 Sat by Pulse Oximetry (%) 98 03/17/19 21:00 Eyes: Yes: PERRL HENT: Yes: Atraumatic Neck: Yes: Supple Cardiovascular: Yes: Regular Rate and Rhythm, S1, S2 Respiratory: Yes: Diminished Gastrointestinal: Yes: Normal Bowel Sounds, Soft. No: Tenderness Edema: No Labs: CBC, BMP 03/17/19 20:45 03/17/19 19:37 Problem List - Problems (1) Fever Code(s): R50.9 - FEVER, UNSPECIFIED Qualifiers: Fever type: unspecified Qualified Code(s): R50.9 - Fever, unspecified (2) Hyperlipidemia Code(s): E78.5 - HYPERLIPIDEMIA, UNSPECIFIED Qualifiers: Hyperlipidemia type: pure hypercholesterolemia Qualified Code(s): E78.00 - Pure hypercholesterolemia, unspecified; E78.0 - Pure hypercholesterolemia (3) MRSA bacteremia Code(s): R78.81 - BACTEREMIA (4) Acute metabolic encephalopathy Code(s): G93.41 - METABOLIC ENCEPHALOPATHY (5) Altered mental status, unspecified Code(s): R41.82 - ALTERED MENTAL STATUS, UNSPECIFIED Qualifiers: Altered mental status type: unspecified Qualified Code(s): R41.82 - Altered mental status, unspecified (6) CVA, old, aphasia Code(s): I69.320 - APHASIA FOLLOWING CEREBRAL INFARCTION (7) ESRD (end stage renal disease) on dialysis Code(s): N18.6 - END STAGE RENAL DISEASE; Z99.2 - DEPENDENCE ON RENAL DIALYSIS (8) Hypertension Code(s): I10 - ESSENTIAL (PRIMARY) HYPERTENSION Qualifiers: Hypertension type: essential hypertension Qualified Code(s): I10 - Essential (primary) hypertension (9) Seizure Code(s): R56.9 - UNSPECIFIED CONVULSIONS (10) Weakness generalized Code(s): R53.1 - WEAKNESS Assessment/Plan 1. Fever, MRSA bacteremia likely skin source 2. ESRD on HD via RUE AVF 2. Hypercholesterolemia 3. History of CVA 4. HTN 5. Seizure disorder PLAN: 1. HD per renal 2. Daptomycin per ID input 3. Lipitor held while on Daptomycin 4. Continue ASA 81 mg QD, Lasix 40 mg QD and Labetolol 200 mg BID 5. DVT prophylaxis Supportive care Erik Verma MD
[2019-03-18 10:25] LABS: INR 1.04 (0.83-1.09); PROTHROMBIN TIME (PATIENT) 12.3 SEC (9.7-13.0)
[2019-03-18 10:28] LABS: ACTIVATED PTT 27.4 SECONDS (25.2-36.5)
[2019-03-18] MEDS ORDERED: LIDOCAINE HCL 1%, 10 MG/ML (20ML VIAL) NR ONE ×2 (11:55)
[2019-03-18] MEDS ORDERED: PROPOFOL 20 ML ONE (12:51)
[2019-03-18] MEDS ORDERED: ceFAZolin SODIUM 1 GM VIAL ONE (13:46)
[2019-03-18] MEDS ORDERED: SODIUM CHLORIDE 0.9% P/F 10 ML VIAL IJ ONE (14:37)
--- NOTE | 2019-03-18 14:59 | OP ---
Operative Note - Note: Operative Date: 03/18/19 Pre-Operative Diagnosis: Infected right avg Operation: Ligation and excision of right avg. Insertion of shiley right IJ Post-Operative Diagnosis: Same as Pre-op Surgeon: Homer Jc Anesthesia: Fractional Estimated Blood Loss (mls): 50 Operative Report Dictated: Yes
[2019-03-18] MEDS ORDERED: SODIUM CHLORIDE 250 ML IV PRN (15:13)
[2019-03-18] MEDS ORDERED: ACETAMINOPHEN 325 MG TABLET (FP) PO PRN (15:13)
--- NOTE | 2019-03-18 15:20 | PN ---
Progress Note, Physician History of Present Illness: Pt seen and examined at bedside. Weekend events noted. Discussed with ID. - Current Medication List Current Medications: Active Medications Acetaminophen (Tylenol -) 650 mg PO Q4H PRN PRN Reason: FEVER Aspirin (Asa -) 81 mg PO DAILY [facility] Calcium Acetate (Phoslo -) 667 mg PO TIDCM [facility] Furosemide (Lasix -) 40 mg PO DAILY [facility] Sodium Chloride (Normal Saline -) 250 mls @ 3,000 mls/hr IV PRN PRN PRN Reason: Hypotension during Dialysis Daptomycin 440 mg/ Sodium (Chloride) 50 mls @ 50 mls/hr IVPB Q48H [facility]; Protocol Labetalol HCl (Normodyne -) 200 mg PO BID [facility] Phenytoin Sodium (Dilantin Oral Suspension -) 200 mg PO BID [facility] Sertraline HCl (Zoloft -) 50 mg PO DAILY [facility] - Objective Vital Signs: Vital Signs Temperature 97.7 F 03/18/19 07:01 Pulse Rate 82 03/18/19 07:01 Respiratory Rate 18 03/18/19 07:01 Blood Pressure 160/76 03/18/19 07:01 O2 Sat by Pulse Oximetry (%) 98 03/17/19 21:00 Constitutional: Yes: Calm Eyes: Yes: Conjunctiva Clear HENT: Yes: Atraumatic Neck: Yes: Supple Cardiovascular: Yes: S1, S2 Gastrointestinal: Yes: Soft Genitourinary: Yes: Incontinence Musculoskeletal: Yes: Muscle Weakness Edema: Yes Edema: LLE: Trace, RLE: Trace Neurological: Yes: Pre-Existing Deficit Labs: CBC, BMP 03/17/19 20:45 03/17/19 19:37 INR, PTT INR 1.04 (0.83-1.09) 03/18/19 09:10 Problem List - Problems (1) Fever Code(s): R50.9 - FEVER, UNSPECIFIED Qualifiers: Fever type: unspecified Qualified Code(s): R50.9 - Fever, unspecified (2) ESRD (end stage renal disease) on dialysis Code(s): N18.6 - END STAGE RENAL DISEASE; Z99.2 - DEPENDENCE ON RENAL DIALYSIS Assessment/Plan Current Medications Generic Name Dose Route Start Last Admin Trade Name Freq PRN Reason Stop Dose Admin Acetaminophen 650 mg 03/18/19 15:13 Tylenol - PO Q4H PRN FEVER Aspirin 81 mg 03/19/19 10:00 Asa - PO DAILY [facility] Calcium Acetate 667 mg 03/18/19 17:30 Phoslo - PO TIDCM [facility] Furosemide 40 mg 03/19/19 10:00 Lasix - PO DAILY [facility] Sodium Chloride 250 mls @ 3,000 mls/hr 03/18/19 15:13 Normal Saline - IV PRN PRN Hypotension during Dialysis Daptomycin 440 mg/ Sodium 50 mls @ 50 mls/hr 03/20/19 13:00 Chloride IVPB Q48H [facility] Protocol Labetalol HCl 200 mg 03/18/19 22:00 Normodyne - PO BID [facility] Phenytoin Sodium 200 mg 03/18/19 22:00 Dilantin Oral Suspension - PO BID [facility] Sertraline HCl 50 mg 03/19/19 10:00 Zoloft - PO DAILY [facility] Microbiology 03/15/19 10:45 Blood - Peripheral Venous Blood Culture - Final Presumptive Mrsa (Pbp2a Pos) 03/12/19 06:20 Blood - Peripheral Venous Blood Culture - Final S Aureus 03/12/19 06:15 Blood - Peripheral Venous Blood Culture - Final S Aureus 03/15/19 10:30 Blood - Peripheral Venous Blood Culture - Preliminary NO GROWTH OBTAINED AFTER 72 HOURS, INCUBATION TO CONTINUE FOR 2 DAYS. Impression 1. ESRD 2. chol 3. hx CVA 4. HTN 5. fever 6. epilepsy 7. bacteremia Plan - pt going to OR for removal of graft and insertion of shiley - HD today - cont to monitor blood cultures - abx per ID - HD 3:30 2 k bath, 1000 heparin bolus 500 per hr, right arm AVF
[2019-03-18] MEDS: DAPTOMYCIN 440 MG in SODIUM CHLORIDE 50 ML IVPB SCH ×2 (15:32→20:22)
--- NOTE | 2019-03-19 09:53 | SURG ---
Surgery Crm Marketing Manager Note Crm Marketing Manager: Chava Smith PA-C Date of Service: 03/18/19 Diagnosis: Infected bleeding AV graft Procedure: Ligation and excision of right avg. Insertion of shiley right IJ I was present for the entirety of the operative procedure. For further detail, please refer to operative report. Visit type - Case Type Case Type: ED Admission - Emergency Emergency Visit: Yes ED Registration Date: 03/11/19 Care time: The patient presented to the Emergency Department on the above date and was hospitalized for further evaluation of their emergent condition. - New patient This patient is new to me today: Yes Date on this admission: 03/19/19 - Critical Care Critical Care patient: No
[2019-03-19] MEDS ORDERED: PT OWN MED DRAWER 7, Y5N ONE (10:13)
[2019-03-19] MEDS: FUROSEMIDE 40 MG TABLET (FP) PO SCH (10:18)
[2019-03-19] MEDS: CALCIUM ACETATE 667 MG CAPSULE (FP) PO SCH ×3 (10:18→18:29)
[2019-03-19] MEDS: LABETALOL HCL 200 MG TABLET (FP) PO SCH ×2 (10:18→22:01)
[2019-03-19] MEDS: ASPIRIN 81 MG CHEWABLE TABLETS PO SCH (10:18)
[2019-03-19] MEDS: SERTRALINE HCL 50 MG TABLET (FP) PO SCH (10:18)
[2019-03-19] MEDS: PHENYTOIN 100 MG/4 ML U-D CUP PO SCH ×2 (11:18→22:01)
--- NOTE | 2019-03-19 11:47 | PN ---
Progress Note, Physician History of Present Illness: S/P EXCISION OF INFECTED R AVG, INSERTION OF SHILEY BC (03/18) PRELIM NO GROWTH AWAKE BUT APHASIC AFEBRILE - Current Medication List Current Medications: Active Medications Acetaminophen (Tylenol -) 650 mg PO Q4H PRN PRN Reason: FEVER Last Admin: 03/19/19 10:19 Dose: 650 mg Aspirin (Asa -) 81 mg PO DAILY [facility] Last Admin: 03/19/19 10:18 Dose: 81 mg Calcium Acetate (Phoslo -) 667 mg PO TIDCM [facility] Last Admin: 03/19/19 10:18 Dose: 667 mg Furosemide (Lasix -) 40 mg PO DAILY [facility] Last Admin: 03/19/19 10:18 Dose: 40 mg Sodium Chloride (Normal Saline -) 250 mls @ 3,000 mls/hr IV PRN PRN PRN Reason: Hypotension during Dialysis Daptomycin 440 mg/ Sodium (Chloride) 50 mls @ 50 mls/hr IVPB Q48H [facility]; Protocol Last Admin: 03/18/19 20:22 Dose: 50 mls/hr Labetalol HCl (Normodyne -) 200 mg PO BID [facility] Last Admin: 03/19/19 10:18 Dose: 200 mg Phenytoin Sodium (Dilantin Oral Suspension -) 200 mg PO BID [facility] Last Admin: 03/19/19 11:18 Dose: 200 mg Sertraline HCl (Zoloft -) 50 mg PO DAILY [facility] Last Admin: 03/19/19 10:18 Dose: 50 mg - Objective Vital Signs: Vital Signs Temperature 98.4 F 03/19/19 06:00 Pulse Rate 74 03/19/19 06:00 Respiratory Rate 18 03/19/19 06:00 Blood Pressure 142/74 03/19/19 06:00 O2 Sat by Pulse Oximetry (%) 98 03/18/19 21:00 Constitutional: Yes: No Distress Cardiovascular: Yes: Regular Rate and Rhythm, S1, S2 Respiratory: Yes: CTA Bilaterally Gastrointestinal: Yes: Normal Bowel Sounds, Soft. No: Tenderness Edema: No Labs: CBC, BMP 03/17/19 20:45 03/17/19 19:37 INR, PTT INR 1.04 (0.83-1.09) 03/18/19 09:10 Assessment/Plan MRSA BACTEREMIA/ PROBABLE ENDOCARDITIS S/P EXCISION OF INFECTED AVG POD#1 S/P CVA CONTINUE DAPTOMYCIN @ 8MG/KG Q48H CHECK REPEAT BC HOLD LIPITOR WHILE ON DAPTOMYCIN
--- NOTE | 2019-03-19 11:55 | PN ---
Progress Note, Physician History of Present Illness: Pt seen and examined at bedside. He appears comfortable. - Current Medication List Current Medications: Active Medications Acetaminophen (Tylenol -) 650 mg PO Q4H PRN PRN Reason: FEVER Last Admin: 03/19/19 10:19 Dose: 650 mg Aspirin (Asa -) 81 mg PO DAILY [facility] Last Admin: 03/19/19 10:18 Dose: 81 mg Calcium Acetate (Phoslo -) 667 mg PO TIDCM [facility] Last Admin: 03/19/19 10:18 Dose: 667 mg Furosemide (Lasix -) 40 mg PO DAILY [facility] Last Admin: 03/19/19 10:18 Dose: 40 mg Sodium Chloride (Normal Saline -) 250 mls @ 3,000 mls/hr IV PRN PRN PRN Reason: Hypotension during Dialysis Daptomycin 440 mg/ Sodium (Chloride) 50 mls @ 50 mls/hr IVPB Q48H [facility]; Protocol Last Admin: 03/18/19 20:22 Dose: 50 mls/hr Labetalol HCl (Normodyne -) 200 mg PO BID [facility] Last Admin: 03/19/19 10:18 Dose: 200 mg Phenytoin Sodium (Dilantin Oral Suspension -) 200 mg PO BID [facility] Last Admin: 03/19/19 11:18 Dose: 200 mg Sertraline HCl (Zoloft -) 50 mg PO DAILY [facility] Last Admin: 03/19/19 10:18 Dose: 50 mg - Objective Vital Signs: Vital Signs Temperature 98.4 F 03/19/19 06:00 Pulse Rate 74 03/19/19 06:00 Respiratory Rate 18 03/19/19 06:00 Blood Pressure 142/74 03/19/19 06:00 O2 Sat by Pulse Oximetry (%) 98 03/18/19 21:00 Constitutional: Yes: Calm Eyes: Yes: Conjunctiva Clear HENT: Yes: Atraumatic Neck: Yes: Supple Cardiovascular: Yes: S1, S2 Gastrointestinal: Yes: Soft Genitourinary: Yes: Incontinence Extremities: Yes: Other (right arm dressing in place) Edema: No Wound/Incision: Yes: Dressing Dry and Intact Neurological: Yes: Pre-Existing Deficit Labs: CBC, BMP 03/17/19 20:45 03/17/19 19:37 INR, PTT INR 1.04 (0.83-1.09) 03/18/19 09:10 Problem List - Problems (1) Fever Code(s): R50.9 - FEVER, UNSPECIFIED Qualifiers: Fever type: unspecified Qualified Code(s): R50.9 - Fever, unspecified (2) ESRD (end stage renal disease) on dialysis Code(s): N18.6 - END STAGE RENAL DISEASE; Z99.2 - DEPENDENCE ON RENAL DIALYSIS Assessment/Plan Current Medications Generic Name Dose Route Start Last Admin Trade Name Freq PRN Reason Stop Dose Admin Acetaminophen 650 mg 03/18/19 15:13 03/19/19 10:19 Tylenol - PO 650 mg Q4H PRN Administration FEVER Aspirin 81 mg 03/19/19 10:00 03/19/19 10:18 Asa - PO 81 mg DAILY [facility] Administration Calcium Acetate 667 mg 03/18/19 17:30 03/19/19 10:18 Phoslo - PO 667 mg TIDCM [facility] Administration Furosemide 40 mg 03/19/19 10:00 03/19/19 10:18 Lasix - PO 40 mg DAILY [facility] Administration Sodium Chloride 250 mls @ 3,000 mls/hr 03/18/19 15:13 Normal Saline - IV PRN PRN Hypotension during Dialysis Daptomycin 440 mg/ Sodium 50 mls @ 50 mls/hr 03/18/19 15:30 03/18/19 20:22 Chloride IVPB 50 mls/hr Q48H [facility] Administration Protocol Labetalol HCl 200 mg 03/18/19 22:00 03/19/19 10:18 Normodyne - PO 200 mg BID [facility] Administration Phenytoin Sodium 200 mg 03/18/19 22:00 03/19/19 11:18 Dilantin Oral Suspension - PO 200 mg BID [facility] Administration Sertraline HCl 50 mg 03/19/19 10:00 03/19/19 10:18 Zoloft - PO 50 mg DAILY [facility] Administration Microbiology 03/15/19 10:45 Blood - Peripheral Venous Blood Culture - Final Presumptive Mrsa (Pbp2a Pos) 03/12/19 06:20 Blood - Peripheral Venous Blood Culture - Final Mr S Aureus 03/12/19 06:15 Blood - Peripheral Venous Blood Culture - Final Mr S Aureus 03/18/19 09:10 Blood - Peripheral Venous Blood Culture - Preliminary NO GROWTH OBTAINED AFTER 24 HOURS, INCUBATION TO CONTINUE FOR 4 DAYS. 03/18/19 08:50 Blood - Peripheral Venous Blood Culture - Preliminary NO GROWTH OBTAINED AFTER 24 HOURS, INCUBATION TO CONTINUE FOR 4 DAYS. 03/15/19 10:30 Blood - Peripheral Venous Blood Culture - Preliminary NO GROWTH OBTAINED AFTER 96 HOURS, INCUBATION TO CONTINUE FOR 1 DAYS. Impression 1. ESRD 2. chol 3. hx CVA 4. HTN 5. fever 6. epilepsy 7. bacteremia Plan - cont abx - HD tomorrow - will hold off heparin on hd as he just had surgery - will order pre hd labs - abx per ID - cont to follow cultures - HD 3:30 2 k bath, 1000 heparin bolus 500 per hr, right arm AVF
[2019-03-19] MEDS ORDERED: SODIUM CHLORIDE 250 ML IV PRN (11:56)
[2019-03-19] MEDS ORDERED: ACETAMINOPHEN 325 MG TABLET (FP) PO PRN (12:37)
--- NOTE | 2019-03-19 18:07 | PN ---
Progress Note (short form) - Note Progress Note: Events noted awake baseline mentation lying down - no distress blood cultures repeated--negative so far Vital Signs - 24 hr Vital Signs - 24 hr 03/18/19 03/18/19 03/19/19 20:34 21:00 06:00 Temperature 98.9 F 98.4 F Pulse Rate 76 74 Respiratory 18 18 Rate Blood Pressure 152/63 142/74 O2 Sat by Pulse 98 Oximetry (%) 03/19/19 03/19/19 03/19/19 09:00 14:00 16:40 Temperature 98.0 F 97.9 F Pulse Rate 79 91 H Respiratory 18 20 18 Rate Blood Pressure 110/50 L 144/68 O2 Sat by Pulse 98 Oximetry (%) Current Medications Generic Name Dose Route Start Last Admin Trade Name Freq PRN Reason Stop Dose Admin Acetaminophen 650 mg 03/19/19 12:37 Tylenol - PO Q4H PRN PAIN OR FEVER Aspirin 81 mg 03/19/19 10:00 03/19/19 10:18 Asa - PO 81 mg DAILY [facility] Administration Calcium Acetate 667 mg 03/18/19 17:30 03/19/19 18:29 Phoslo - PO 667 mg TIDCM [facility] Administration Epoetin Juanito 5,000 unit 03/20/19 11:56 Epogen - IVPUSH 03/20/19 11:57 ONCE ONE Furosemide 40 mg 03/19/19 10:00 03/19/19 10:18 Lasix - PO 40 mg DAILY [facility] Administration Sodium Chloride 250 mls @ 3,000 mls/hr 03/18/19 15:13 Normal Saline - IV PRN PRN Hypotension during Dialysis Daptomycin 440 mg/ Sodium 50 mls @ 50 mls/hr 03/18/19 15:30 03/18/19 20:22 Chloride IVPB 50 mls/hr Q48H [facility] Administration Protocol Sodium Chloride 250 mls @ 3,000 mls/hr 03/19/19 11:56 Normal Saline - IV 03/20/19 11:56 PRN PRN Hypotension during Dialysis Labetalol HCl 200 mg 03/18/19 22:00 03/19/19 10:18 Normodyne - PO 200 mg BID [facility] Administration Phenytoin Sodium 200 mg 03/18/19 22:00 03/19/19 11:18 Dilantin Oral Suspension - PO 200 mg BID [facility] Administration Sertraline HCl 50 mg 03/19/19 10:00 03/19/19 10:18 Zoloft - PO 50 mg DAILY [facility] Administration S1 S2 RRR Lungs clear Abd- soft, NT no edema PLAN repeated blood cultures-- negative so far spoke with ID-- change antibiotics to Daptomycin echo negative Vascular eval noted-- no signs of infection on right AVF HD per renal Problem List - Problems (1) Fever Code(s): R50.9 - FEVER, UNSPECIFIED Qualifiers: Fever type: unspecified Qualified Code(s): R50.9 - Fever, unspecified (2) Acute metabolic encephalopathy Code(s): G93.41 - METABOLIC ENCEPHALOPATHY (3) Altered mental status, unspecified Code(s): R41.82 - ALTERED MENTAL STATUS, UNSPECIFIED Qualifiers: Altered mental status type: unspecified Qualified Code(s): R41.82 - Altered mental status, unspecified (4) CVA, old, aphasia Code(s): I69.320 - APHASIA FOLLOWING CEREBRAL INFARCTION (5) ESRD (end stage renal disease) on dialysis Code(s): N18.6 - END STAGE RENAL DISEASE; Z99.2 - DEPENDENCE ON RENAL DIALYSIS
[2019-03-20 07:26] LABS: HEMATOCRIT 24.6 % (35.4-49); HEMOGLOBIN 8.3 GM/dL (11.7-16.9); MCH 33.4 pg (25.7-33.7); MCHC 33.7 g/dl (32.0-35.9); MEAN CELL VOLUME 99.2 fl (80-96); MEAN PLT VOLUME 8.3 fl (7.5-11.1); PLATELET COUNT 276 K/MM3 (134-434); RBC 2.48 M/mm3 (4.00-5.60); RDW 14.9 % (11.9-15.9); WHITE BLOOD COUNT 7.5 K/mm3 (4.0-10.0)
[2019-03-20 07:47] LABS: ALBUMIN 2.5 g/dl (3.4-5.0); BILIRUBIN,TOTAL 0.2 mg/dL (0.2-1); BLOOD UREA NITROGEN 57.1 mg/dL (7-18); CALCIUM 8.1 mg/dL (8.5-10.1); CREATININE 6.7 mg/dL (0.55-1.3); PHOSPHOROUS 3.3 mg/dL (2.5-4.9); TOT PROT 6.2 g/dl (6.4-8.2)
[2019-03-20] MEDS ORDERED: EPOETIN ALFA 2,000 UNIT/1 ML VIAL IVPUSH ONE (09:30)
[2019-03-20] MEDS: ASPIRIN 81 MG CHEWABLE TABLETS PO SCH (09:52)
[2019-03-20] MEDS: PHENYTOIN 100 MG/4 ML U-D CUP PO SCH ×2 (09:52→21:41)
[2019-03-20] MEDS: FUROSEMIDE 40 MG TABLET (FP) PO SCH (09:52)
[2019-03-20] MEDS: CALCIUM ACETATE 667 MG CAPSULE (FP) PO SCH ×3 (09:52→17:05)
[2019-03-20] MEDS: SERTRALINE HCL 50 MG TABLET (FP) PO SCH (09:53)
[2019-03-20] MEDS: LABETALOL HCL 200 MG TABLET (FP) PO SCH ×2 (09:53→21:41)
[2019-03-20 11:13] LABS: PHOSPHOROUS 3.3 mg/dL (2.5-4.9)
--- NOTE | 2019-03-20 12:26 | PN ---
Progress Note, Physician History of Present Illness: Pt seen and examined at bedside. He is tolerating HD. - Current Medication List Current Medications: Active Medications Acetaminophen (Tylenol -) 650 mg PO Q4H PRN PRN Reason: PAIN OR FEVER Aspirin (Asa -) 81 mg PO DAILY [facility] Last Admin: 03/20/19 09:52 Dose: Not Given Calcium Acetate (Phoslo -) 667 mg PO TIDCM [facility] Last Admin: 03/20/19 09:52 Dose: Not Given Furosemide (Lasix -) 40 mg PO DAILY [facility] Last Admin: 03/20/19 09:52 Dose: Not Given Daptomycin 440 mg/ Sodium (Chloride) 50 mls @ 50 mls/hr IVPB Q48H [facility]; Protocol Last Admin: 03/18/19 20:22 Dose: 50 mls/hr Labetalol HCl (Normodyne -) 200 mg PO BID [facility] Last Admin: 03/20/19 09:53 Dose: Not Given Phenytoin Sodium (Dilantin Oral Suspension -) 200 mg PO BID [facility] Last Admin: 03/20/19 09:52 Dose: Not Given Sertraline HCl (Zoloft -) 50 mg PO DAILY [facility] Last Admin: 03/20/19 09:53 Dose: Not Given - Objective Vital Signs: Vital Signs Temperature 98.8 F 03/20/19 10:00 Pulse Rate 87 03/20/19 12:00 Respiratory Rate 16 03/20/19 12:00 Blood Pressure 105/64 03/20/19 12:00 O2 Sat by Pulse Oximetry (%) 96 03/20/19 09:00 Constitutional: Yes: Calm Eyes: Yes: Conjunctiva Clear HENT: Yes: Atraumatic Neck: Yes: Supple Cardiovascular: Yes: S1, S2 Respiratory: Yes: CTA Bilaterally Gastrointestinal: Yes: Soft Genitourinary: Yes: Incontinence Musculoskeletal: Yes: Muscle Weakness Edema: No Integumentary: Yes: WNL Wound/Incision: Yes: Dressing Dry and Intact Neurological: Yes: Pre-Existing Deficit Labs: CBC, BMP 03/20/19 06:06 03/20/19 06:06 INR, PTT INR 1.04 (0.83-1.09) 03/18/19 09:10 Problem List - Problems (1) Fever Code(s): R50.9 - FEVER, UNSPECIFIED Qualifiers: Fever type: unspecified Qualified Code(s): R50.9 - Fever, unspecified (2) ESRD (end stage renal disease) on dialysis Code(s): N18.6 - END STAGE RENAL DISEASE; Z99.2 - DEPENDENCE ON RENAL DIALYSIS Assessment/Plan Current Medications Generic Name Dose Route Start Last Admin Trade Name Freq PRN Reason Stop Dose Admin Acetaminophen 650 mg 03/19/19 12:37 Tylenol - PO Q4H PRN PAIN OR FEVER Aspirin 81 mg 03/19/19 10:00 03/20/19 09:52 Asa - PO Not Given DAILY [facility] Calcium Acetate 667 mg 03/18/19 17:30 03/20/19 09:52 Phoslo - PO Not Given TIDCM [facility] Furosemide 40 mg 03/19/19 10:00 03/20/19 09:52 Lasix - PO Not Given DAILY [facility] Daptomycin 440 mg/ Sodium 50 mls @ 50 mls/hr 03/18/19 15:30 03/18/19 20:22 Chloride IVPB 50 mls/hr Q48H [facility] Administration Protocol Labetalol HCl 200 mg 03/18/19 22:00 03/20/19 09:53 Normodyne - PO Not Given BID [facility] Phenytoin Sodium 200 mg 03/18/19 22:00 03/20/19 09:52 Dilantin Oral Suspension - PO Not Given BID [facility] Sertraline HCl 50 mg 03/19/19 10:00 03/20/19 09:53 Zoloft - PO Not Given DAILY [facility] Microbiology 03/18/19 09:10 Blood - Peripheral Venous Blood Culture - Preliminary NO GROWTH OBTAINED AFTER 48 HOURS, INCUBATION TO CONTINUE FOR 3 DAYS. 03/18/19 08:50 Blood - Peripheral Venous Blood Culture - Preliminary NO GROWTH OBTAINED AFTER 48 HOURS, INCUBATION TO CONTINUE FOR 3 DAYS. Impression 1. ESRD 2. chol 3. hx CVA 4. HTN 5. fever 6. epilepsy 7. bacteremia Plan - HD today - cont to follow cultures - abx per ID - cont wound care - vascular follow up - will need permacath once cleared by ID - HD 3:30 2 k bath, 1000 heparin bolus 500 per hr, right arm AVF
--- NOTE | 2019-03-20 14:05 | PN ---
Progress Note (short form) - Note Progress Note: pt examined in dialysis no distress Vital Signs - 24 hr 03/19/19 03/19/19 03/19/19 14:00 16:40 20:00 Temperature 98.0 F 97.9 F 98.0 F Pulse Rate 79 91 H 85 Respiratory 20 18 20 Rate Blood Pressure 110/50 L 144/68 128/60 O2 Sat by Pulse Oximetry (%) 03/19/19 03/20/19 03/20/19 21:00 06:52 09:00 Temperature 99 F Pulse Rate Respiratory 20 Rate Blood Pressure 153/78 O2 Sat by Pulse 96 96 Oximetry (%) 03/20/19 03/20/19 03/20/19 09:25 09:30 10:00 Temperature 98.8 F Pulse Rate 79 93 H 83 Respiratory 18 18 20 Rate Blood Pressure 132/76 129/73 155/68 O2 Sat by Pulse Oximetry (%) 03/20/19 03/20/19 03/20/19 10:30 11:00 11:15 Temperature Pulse Rate 96 H 88 87 Respiratory 16 16 16 Rate Blood Pressure 107/64 91/52 L 101/60 O2 Sat by Pulse Oximetry (%) 03/20/19 03/20/19 03/20/19 11:30 12:00 12:30 Temperature Pulse Rate 92 H 87 86 Respiratory 16 16 16 Rate Blood Pressure 93/57 L 105/64 117/68 O2 Sat by Pulse Oximetry (%) 03/20/19 03/20/19 13:00 13:13 Temperature 97.8 F Pulse Rate 87 85 Respiratory 16 16 Rate Blood Pressure 126/77 137/74 O2 Sat by Pulse Oximetry (%) Current Medications Generic Name Dose Route Start Last Admin Trade Name Freq PRN Reason Stop Dose Admin Acetaminophen 650 mg 03/19/19 12:37 Tylenol - PO Q4H PRN PAIN OR FEVER Aspirin 81 mg 03/19/19 10:00 03/20/19 09:52 Asa - PO Not Given DAILY [facility] Calcium Acetate 667 mg 03/18/19 17:30 03/20/19 09:52 Phoslo - PO Not Given TIDCM [facility] Furosemide 40 mg 03/19/19 10:00 03/20/19 09:52 Lasix - PO Not Given DAILY [facility] Daptomycin 440 mg/ Sodium 50 mls @ 50 mls/hr 03/18/19 15:30 06/17/19 20:22 Chloride IVPB 50 mls/hr Q48H [facility] Administration Protocol Labetalol HCl 200 mg 03/18/19 22:00 03/20/19 09:53 Normodyne - PO Not Given BID [facility] Phenytoin Sodium 200 mg 03/18/19 22:00 03/20/19 09:52 Dilantin Oral Suspension - PO Not Given BID [facility] Sertraline HCl 50 mg 03/19/19 10:00 03/20/19 09:53 Zoloft - PO Not Given DAILY [facility] Laboratory Results - last 24 hr 03/20/19 03/20/19 03/20/19 06:06 06:06 09:35 WBC 7.5 RBC 2.48 L Hgb 8.3 L Hct 24.6 L D MCV 99.2 H MCH 33.4 MCHC 33.7 RDW 14.9 Plt Count 276 MPV 8.3 Sodium 139 Potassium 5.0 Chloride 100 Carbon Dioxide 32 Anion Gap 7 L BUN 57.1 H Creatinine 6.7 H Est GFR (CKD-EPI)AfAm 9.94 Est GFR (CKD-EPI)NonAf 8.58 Random Glucose 100 Calcium 8.1 L Phosphorus 3.3 3.3 Total Bilirubin 0.2 AST 22 ALT 10 L Alkaline Phosphatase 217 H Creatine Kinase 82 77 Total Protein 6.2 L Albumin 2.5 L S1 S2 RRR Lungs clear Abd- soft, NT no edema PLAN repeated blood cultures-- negative so far repeated again through IJ-- trialysis spoke with ID-- change antibiotics to Daptomycin echo negative Vascular eval noted-- no signs of infection on right AVF HD per renal Problem List - Problems (1) Fever Code(s): R50.9 - FEVER, UNSPECIFIED Qualifiers: Fever type: unspecified Qualified Code(s): R50.9 - Fever, unspecified (2) Acute metabolic encephalopathy Code(s): G93.41 - METABOLIC ENCEPHALOPATHY (3) Altered mental status, unspecified Code(s): R41.82 - ALTERED MENTAL STATUS, UNSPECIFIED Qualifiers: Altered mental status type: unspecified Qualified Code(s): R41.82 - Altered mental status, unspecified (4) CVA, old, aphasia Code(s): I69.320 - APHASIA FOLLOWING CEREBRAL INFARCTION (5) ESRD (end stage renal disease) on dialysis Code(s): N18.6 - END STAGE RENAL DISEASE; Z99.2 - DEPENDENCE ON RENAL DIALYSIS
[2019-03-20 15:36] VITALS: BMI 17.2
[2019-03-20] MEDS: DAPTOMYCIN 440 MG in SODIUM CHLORIDE 50 ML IVPB SCH (17:05)
[2019-03-20] MEDS ORDERED: PT OWN MED DRAWER 7, Y5N ONE (21:09)
[2019-03-21] MEDS: FUROSEMIDE 40 MG TABLET (FP) PO SCH (09:31)
[2019-03-21] MEDS: LABETALOL HCL 200 MG TABLET (FP) PO SCH ×2 (09:31→21:54)
[2019-03-21] MEDS: SERTRALINE HCL 50 MG TABLET (FP) PO SCH (09:31)
[2019-03-21] MEDS: CALCIUM ACETATE 667 MG CAPSULE (FP) PO SCH ×3 (09:31→17:06)
[2019-03-21] MEDS: ASPIRIN 81 MG CHEWABLE TABLETS PO SCH (09:31)
[2019-03-21] MEDS: PHENYTOIN 100 MG/4 ML U-D CUP PO SCH ×2 (09:32→21:54)
--- NOTE | 2019-03-21 12:38 | PN ---
Progress Note, Physician History of Present Illness: Afebrile, MRSA bacteremia has cleared after removal of infected RUE AVF and placement of Shiley. - Current Medication List Current Medications: Active Medications Acetaminophen (Tylenol -) 650 mg PO Q4H PRN PRN Reason: PAIN OR FEVER Aspirin (Asa -) 81 mg PO DAILY [facility] Last Admin: 03/21/19 09:31 Dose: 81 mg Calcium Acetate (Phoslo -) 667 mg PO TIDCM [facility] Last Admin: 03/21/19 09:31 Dose: 667 mg Furosemide (Lasix -) 40 mg PO DAILY [facility] Last Admin: 03/21/19 09:31 Dose: 40 mg Daptomycin 440 mg/ Sodium (Chloride) 50 mls @ 50 mls/hr IVPB Q48H [facility]; Protocol Last Admin: 03/20/19 17:05 Dose: 50 mls/hr Labetalol HCl (Normodyne -) 200 mg PO BID [facility] Last Admin: 03/21/19 09:31 Dose: 200 mg Phenytoin Sodium (Dilantin Oral Suspension -) 200 mg PO BID [facility] Last Admin: 03/21/19 09:32 Dose: 200 mg Sertraline HCl (Zoloft -) 50 mg PO DAILY [facility] Last Admin: 03/21/19 09:31 Dose: 50 mg - Objective Vital Signs: Vital Signs Temperature 98.8 F 03/21/19 09:30 Pulse Rate 100 H 03/21/19 09:30 Respiratory Rate 20 03/21/19 09:30 Blood Pressure 134/66 03/21/19 09:30 O2 Sat by Pulse Oximetry (%) 97 03/21/19 08:21 Constitutional: Yes: No Distress, Calm, Thin Neck: Yes: Supple Cardiovascular: Yes: Regular Rate and Rhythm Respiratory: Yes: Regular, Diminished Gastrointestinal: Yes: Normal Bowel Sounds, Soft Edema: No Labs: CBC, BMP 03/20/19 06:06 03/20/19 06:06 INR, PTT INR 1.04 (0.83-1.09) 03/18/19 09:10 Problem List - Problems (1) MRSA bacteremia Code(s): R78.81 - BACTEREMIA (2) Fever Code(s): R50.9 - FEVER, UNSPECIFIED Qualifiers: Fever type: unspecified Qualified Code(s): R50.9 - Fever, unspecified (3) Acute metabolic encephalopathy Code(s): G93.41 - METABOLIC ENCEPHALOPATHY (4) CVA, old, aphasia Code(s): I69.320 - APHASIA FOLLOWING CEREBRAL INFARCTION (5) ESRD (end stage renal disease) on dialysis Code(s): N18.6 - END STAGE RENAL DISEASE; Z99.2 - DEPENDENCE ON RENAL DIALYSIS (6) Hypertension Code(s): I10 - ESSENTIAL (PRIMARY) HYPERTENSION Qualifiers: Hypertension type: essential hypertension Qualified Code(s): I10 - Essential (primary) hypertension (7) Seizure Code(s): R56.9 - UNSPECIFIED CONVULSIONS (8) Hyperlipidemia Code(s): E78.5 - HYPERLIPIDEMIA, UNSPECIFIED Qualifiers: Hyperlipidemia type: pure hypercholesterolemia Qualified Code(s): E78.00 - Pure hypercholesterolemia, unspecified; E78.0 - Pure hypercholesterolemia (9) Infection of AV graft for dialysis Code(s): T82.7XXA - INFECT/INFLM REACT D/T OTH CARDI/VASC DEV/IMPLNT/GRFT, INIT Assessment/Plan 03/14/2019 Echo: Normal LV and RV size and fxn, mild MR, TR 1. Fever, MRSA bacteremia post infected RUE AVG removal and shiley insertion 2. ESRD on HD via shiley 2. Hypercholesterolemia 3. History of CVA 4. HTN 5. Seizure disorder PLAN: 1. HD per renal, eventually need PC once MRSA bacteremia treatment concludes 2. Daptomycin per ID input with f/u surveillance cx to confirm clearance. 03/18 Bld Cx NGTD 3. Lipitor held while on Daptomycin 4. Continue ASA 81 mg QD, Lasix 40 mg QD and Labetolol 200 mg BID 5. DVT prophylaxis
--- NOTE | 2019-03-21 13:31 | PN ---
Progress Note (short form) - Note Progress Note: pt examined no distress s/p excision of infected AVG POD #3 Vital Signs - 24 hr 03/20/19 03/20/19 03/20/19 14:00 16:30 19:40 Temperature 98.2 F 97.8 F 97.8 F Pulse Rate 88 89 87 Respiratory 20 20 20 Rate Blood Pressure 143/75 142/72 135/67 O2 Sat by Pulse Oximetry (%) 03/20/19 03/21/19 03/21/19 20:40 04:00 08:21 Temperature 98.7 F Pulse Rate 96 H Respiratory 20 20 Rate Blood Pressure 131/80 O2 Sat by Pulse 97 97 Oximetry (%) 03/21/19 09:30 Temperature 98.8 F Pulse Rate 100 H Respiratory 20 Rate Blood Pressure 134/66 O2 Sat by Pulse Oximetry (%) Current Medications Generic Name Dose Route Start Last Admin Trade Name Freq PRN Reason Stop Dose Admin Acetaminophen 650 mg 03/19/19 12:37 Tylenol - PO Q4H PRN PAIN OR FEVER Aspirin 81 mg 03/19/19 10:00 03/21/19 09:31 Asa - PO 81 mg DAILY TYREE Administration Calcium Acetate 667 mg 03/18/19 17:30 03/21/19 09:31 Phoslo - PO 667 mg TIDCM TYREE Administration Furosemide 40 mg 03/19/19 10:00 03/21/19 09:31 Lasix - PO 40 mg DAILY TYREE Administration Daptomycin 440 mg/ Sodium 50 mls @ 50 mls/hr 03/18/19 15:30 03/20/19 17:05 Chloride IVPB 50 mls/hr Q48H TYREE Administration Protocol Labetalol HCl 200 mg 03/18/19 22:00 03/21/19 09:31 Normodyne - PO 200 mg BID TYREE Administration Phenytoin Sodium 200 mg 03/18/19 22:00 03/21/19 09:32 Dilantin Oral Suspension - PO 200 mg BID TYREE Administration Sertraline HCl 50 mg 03/19/19 10:00 03/21/19 09:31 Zoloft - PO 50 mg DAILY TYREE Administration Microbiology 03/18/19 09:10 Blood Culture - Preliminary Blood - Peripheral Venous NO GROWTH OBTAINED AFTER 72 HOURS, INCUBATION TO CONTINUE FOR 2 DAYS. 03/18/19 08:50 Blood Culture - Preliminary Blood - Peripheral Venous NO GROWTH OBTAINED AFTER 72 HOURS, INCUBATION TO CONTINUE FOR 2 DAYS. 03/20/19 06:06 Blood Culture - Preliminary Blood - Shiley Catheter NO GROWTH OBTAINED AFTER 24 HOURS, INCUBATION TO CONTINUE FOR 4 DAYS. 03/20/19 06:06 Blood Culture - Preliminary Blood - Shiley Catheter NO GROWTH OBTAINED AFTER 24 HOURS, INCUBATION TO CONTINUE FOR 4 DAYS. 03/15/19 10:30 Blood Culture - Final Blood - Peripheral Venous NO GROWTH AFTER 5 DAYS INCUBATION S1 S2 RRR Lungs clear Abd- soft, NT no edema PLAN repeated blood cultures-- negative so far repeated again through IJ-- trialysis -- negative spoke with ID-- change antibiotics to Daptomycin echo negative Vascular eval noted-- no signs of infection on right AVF HD per renal Problem List - Problems (1) Fever Code(s): R50.9 - FEVER, UNSPECIFIED Qualifiers: Fever type: unspecified Qualified Code(s): R50.9 - Fever, unspecified (2) Acute metabolic encephalopathy Code(s): G93.41 - METABOLIC ENCEPHALOPATHY (3) Altered mental status, unspecified Code(s): R41.82 - ALTERED MENTAL STATUS, UNSPECIFIED Qualifiers: Altered mental status type: unspecified Qualified Code(s): R41.82 - Altered mental status, unspecified (4) CVA, old, aphasia Code(s): I69.320 - APHASIA FOLLOWING CEREBRAL INFARCTION (5) ESRD (end stage renal disease) on dialysis Code(s): N18.6 - END STAGE RENAL DISEASE; Z99.2 - DEPENDENCE ON RENAL DIALYSIS
--- NOTE | 2019-03-21 15:24 | PN ---
Progress Note, Physician History of Present Illness: S/P EXCISION OF INFECTED R AVG, INSERTION OF SHILEY BC (03/18, 03/20) PRELIM NO GROWTH AWAKE BUT APHASIC AFEBRILE - Current Medication List Current Medications: Active Medications Acetaminophen (Tylenol -) 650 mg PO Q4H PRN PRN Reason: PAIN OR FEVER Aspirin (Asa -) 81 mg PO DAILY [facility] Last Admin: 03/21/19 09:31 Dose: 81 mg Calcium Acetate (Phoslo -) 667 mg PO TIDCM [facility] Last Admin: 03/21/19 13:52 Dose: 667 mg Furosemide (Lasix -) 40 mg PO DAILY [facility] Last Admin: 03/21/19 09:31 Dose: 40 mg Daptomycin 440 mg/ Sodium (Chloride) 50 mls @ 50 mls/hr IVPB Q48H [facility]; Protocol Last Admin: 03/20/19 17:05 Dose: 50 mls/hr Labetalol HCl (Normodyne -) 200 mg PO BID [facility] Last Admin: 03/21/19 09:31 Dose: 200 mg Phenytoin Sodium (Dilantin Oral Suspension -) 200 mg PO BID [facility] Last Admin: 03/21/19 09:32 Dose: 200 mg Sertraline HCl (Zoloft -) 50 mg PO DAILY [facility] Last Admin: 03/21/19 09:31 Dose: 50 mg - Objective Vital Signs: Vital Signs Temperature 98.8 F 03/21/19 09:30 Pulse Rate 100 H 03/21/19 09:30 Respiratory Rate 20 03/21/19 09:30 Blood Pressure 134/66 03/21/19 09:30 O2 Sat by Pulse Oximetry (%) 97 03/21/19 08:21 Constitutional: Yes: Thin Cardiovascular: Yes: Regular Rate and Rhythm, Murmur, S1, S2 Respiratory: Yes: CTA Bilaterally Gastrointestinal: Yes: Normal Bowel Sounds, Soft. No: Tenderness Edema: No Labs: CBC, BMP 03/20/19 06:06 03/20/19 06:06 INR, PTT INR 1.04 (0.83-1.09) 03/18/19 09:10 Assessment/Plan MRSA BACTEREMIA/ PROBABLE ENDOCARDITIS S/P EXCISION OF INFECTED AVG S/P CVA CONTINUE DAPTOMYCIN @ 8MG/KG Q48H CHECK REPEAT BC HOLD LIPITOR WHILE ON DAPTOMYCIN
--- NOTE | 2019-03-21 16:26 | OP ---
DATE OF OPERATION: 03/19/2019 PREOPERATIVE DIAGNOSIS: Infected right arteriovenous graft. POSTOPERATIVE DIAGNOSIS: Infected right arteriovenous graft. PROCEDURE: Excision of right arteriovenous graft, insertion of Shiley catheter. SURGEON: Homer Stephen M.D. ANESTHESIA: Fractional. BLOOD LOSS: 50 mL. INDICATION: The patient is a 53-year-old male that is a patient of another vascular group that came in here for other medical causes on Monday. He had bleeding from his right AV graft, and again on Monday he had bleeding from his right AV graft spontaneously. Patient has positive blood cultures and is highly suspected with these ulcers that are on his right AV graft that keeps bleeding, that the graft is infected and should be removed. The patient's family was consented for the procedure understanding all risks, benefits, and alternatives and patient was then brought to the operating room. DESCRIPTION OF PROCEDURE: Once in the operating room, he was laid on the operating table in a supine manner, and the area of the right arm was prepped and draped in sterile surgical manner. We then went ahead and first injected 15 mL of lidocaine 1% at the proximal AV graft above the anastomosis. A transverse incision with number 15 blade was made. Bovie cautery was used to control hemostasis, and we were able to get down to the graft. Once we got down to the graft, the graft was dissected anteriorly and posteriorly. We then went ahead and clamped the graft with 2 mosquitos. We then ligated the graft there and using 0 silk suture ligature, we were able to close the proximal graft in a running fashion. Once that was performed, we went ahead and went to the distal AV graft over the scabs. The scab was opened and infected, and the graft was disintegrated in that area. We went ahead and injected 15 mL lidocaine 1% there, and we went ahead and made a longitudinal incision over the graft using a 15 blade, 5 cm, Bovie cautery was used to control hemostasis. We then, using Metzenbaum scissors, dissected down to the graft, and the graft was dissected and freed up and the infected portion was excised and removed. The graft was tied off on the distal ends with 0 silk. Once the graft was removed, the wound bed was irrigated. We then went ahead and used skin renee, and the skin was closed. A incision was completed, 4x4s and Tegaderm was placed. We then went ahead and prepped and draped the right neck in a sterile surgical manner. Under ultrasound guidance, we visualized the right anterior jugular vein and 10 mL of lidocaine 1% was injected there. We took our micropuncture needle, punctured the right internal jugular vein. Micropuncture wire inserted, micropuncture sheath inserted, and 0.035 floppy guidewire was inserted. We then went ahead and used a dilator and dilated up the vein, and then placed our Trialysis catheter over the wire into the vein. We then placed the Trialysis catheter in. We then michelle back on each port of Trialysis catheter. There was good flow. Heparinized saline was injected. We then placed a Biopatch and 3-0 nylon was used, and the catheter was secured to the skin. At this point 4x4s, Tegaderms were placed. Patient tolerated the procedure with no complications. Patient was transferred to the PACU where chest x-ray will be ordered. HOMER STEPHEN DO [id number]
--- NOTE | 2019-03-21 19:27 | PN ---
Progress Note, Physician History of Present Illness: Pt seen and examined at bedside. He is awake and appears comfortable. - Current Medication List Current Medications: Active Medications Acetaminophen (Tylenol -) 650 mg PO Q4H PRN PRN Reason: PAIN OR FEVER Aspirin (Asa -) 81 mg PO DAILY [facility] Last Admin: 03/21/19 09:31 Dose: 81 mg Calcium Acetate (Phoslo -) 667 mg PO TIDCM [facility] Last Admin: 03/21/19 17:06 Dose: 667 mg Furosemide (Lasix -) 40 mg PO DAILY [facility] Last Admin: 03/21/19 09:31 Dose: 40 mg Daptomycin 440 mg/ Sodium (Chloride) 50 mls @ 50 mls/hr IVPB Q48H [facility]; Protocol Last Admin: 03/20/19 17:05 Dose: 50 mls/hr Labetalol HCl (Normodyne -) 200 mg PO BID [facility] Last Admin: 03/21/19 09:31 Dose: 200 mg Phenytoin Sodium (Dilantin Oral Suspension -) 200 mg PO BID [facility] Last Admin: 03/21/19 09:32 Dose: 200 mg Sertraline HCl (Zoloft -) 50 mg PO DAILY [facility] Last Admin: 03/21/19 09:31 Dose: 50 mg - Objective Vital Signs: Vital Signs Temperature 98.4 F 03/21/19 16:30 Pulse Rate 81 03/21/19 16:30 Respiratory Rate 18 03/21/19 16:30 Blood Pressure 149/76 03/21/19 16:30 O2 Sat by Pulse Oximetry (%) 97 03/21/19 08:21 Constitutional: Yes: Calm Eyes: Yes: Conjunctiva Clear HENT: Yes: Atraumatic Neck: Yes: Supple Cardiovascular: Yes: S1, S2 Respiratory: Yes: CTA Bilaterally Gastrointestinal: Yes: Normal Bowel Sounds, Soft Genitourinary: Yes: Incontinence Musculoskeletal: Yes: Muscle Weakness Edema: No Wound/Incision: Yes: Dressing Dry and Intact Neurological: Yes: Pre-Existing Deficit Labs: CBC, BMP 03/20/19 06:06 03/20/19 06:06 INR, PTT INR 1.04 (0.83-1.09) 03/18/19 09:10 Problem List - Problems (1) Fever Code(s): R50.9 - FEVER, UNSPECIFIED Qualifiers: Fever type: unspecified Qualified Code(s): R50.9 - Fever, unspecified (2) ESRD (end stage renal disease) on dialysis Code(s): N18.6 - END STAGE RENAL DISEASE; Z99.2 - DEPENDENCE ON RENAL DIALYSIS Assessment/Plan Current Medications Generic Name Dose Route Start Last Admin Trade Name Freq PRN Reason Stop Dose Admin Acetaminophen 650 mg 03/19/19 12:37 Tylenol - PO Q4H PRN PAIN OR FEVER Aspirin 81 mg 03/19/19 10:00 03/21/19 09:31 Asa - PO 81 mg DAILY TYREE Administration Calcium Acetate 667 mg 03/18/19 17:30 03/21/19 17:06 Phoslo - PO 667 mg TIDCM TYREE Administration Furosemide 40 mg 03/19/19 10:00 03/21/19 09:31 Lasix - PO 40 mg DAILY TYREE Administration Daptomycin 440 mg/ Sodium 50 mls @ 50 mls/hr 03/18/19 15:30 03/20/19 17:05 Chloride IVPB 50 mls/hr Q48H TYREE Administration Protocol Labetalol HCl 200 mg 03/18/19 22:00 03/21/19 09:31 Normodyne - PO 200 mg BID TYREE Administration Phenytoin Sodium 200 mg 03/18/19 22:00 03/21/19 09:32 Dilantin Oral Suspension - PO 200 mg BID TYREE Administration Sertraline HCl 50 mg 03/19/19 10:00 03/21/19 09:31 Zoloft - PO 50 mg DAILY [facility] Administration Impression 1. ESRD 2. chol 3. hx CVA 4. HTN 5. fever 6. epilepsy 7. bacteremia Plan - HD tomorrow - cont to follow cultures - abx per ID - cont wound care - vascular follow up, will need pc once cleared by ID - HD 3:30 2 k bath, 1000 heparin bolus 500 per hr, right arm AVF
[2019-03-21] MEDS ORDERED: PT OWN MED DRAWER 7, Y5N ONE (21:02)
[2019-03-22] MEDS: SERTRALINE HCL 50 MG TABLET (FP) PO SCH (09:21)
[2019-03-22] MEDS: ASPIRIN 81 MG CHEWABLE TABLETS PO SCH (09:21)
[2019-03-22] MEDS: CALCIUM ACETATE 667 MG CAPSULE (FP) PO SCH ×3 (09:21→18:05)
[2019-03-22] MEDS ORDERED: PT OWN MED DRAWER 7, Y5N ONE ×2 (09:24→17:11)
[2019-03-22] MEDS: PHENYTOIN 100 MG/4 ML U-D CUP PO SCH ×2 (09:25→21:23)
--- NOTE | 2019-03-22 11:57 | PN ---
Progress Note, Physician History of Present Illness: Afebrile, MRSA bacteremia has cleared after removal of infected RUE AVF and placement of Shiley, seen at HD. - Current Medication List Current Medications: Active Medications Acetaminophen (Tylenol -) 650 mg PO Q4H PRN PRN Reason: PAIN OR FEVER Aspirin (Asa -) 81 mg PO DAILY [facility] Last Admin: 03/22/19 09:21 Dose: 81 mg Calcium Acetate (Phoslo -) 667 mg PO TIDCM [facility] Last Admin: 03/22/19 09:21 Dose: 667 mg Epoetin Juanito (Epogen -) 6,000 unit IVPUSH ONCE ONE Stop: 03/22/19 19:28 Furosemide (Lasix -) 40 mg PO DAILY [facility] Last Admin: 03/21/19 09:31 Dose: 40 mg Daptomycin 440 mg/ Sodium (Chloride) 50 mls @ 50 mls/hr IVPB Q48H [facility]; Protocol Last Admin: 03/20/19 17:05 Dose: 50 mls/hr Sodium Chloride (Normal Saline -) 250 mls @ 3,000 mls/hr IV PRN PRN PRN Reason: Hypotension during Dialysis Stop: 03/22/19 19:27 Labetalol HCl (Normodyne -) 200 mg PO BID [facility] Last Admin: 03/21/19 21:54 Dose: 200 mg Phenytoin Sodium (Dilantin Oral Suspension -) 200 mg PO BID [facility] Last Admin: 03/22/19 09:25 Dose: 200 mg Sertraline HCl (Zoloft -) 50 mg PO DAILY [facility] Last Admin: 03/22/19 09:21 Dose: 50 mg - Objective Vital Signs: Vital Signs Temperature 98.6 F 03/22/19 06:00 Pulse Rate 73 03/22/19 06:00 Respiratory Rate 18 03/22/19 06:00 Blood Pressure 139/66 03/22/19 06:00 O2 Sat by Pulse Oximetry (%) 97 03/21/19 21:00 Constitutional: Yes: No Distress, Calm, Thin Neck: Yes: Supple Cardiovascular: Yes: Regular Rate and Rhythm Respiratory: Yes: Regular, CTA Bilaterally Gastrointestinal: Yes: Soft, Hypoactive Bowel Sounds Edema: No Labs: CBC, BMP 03/20/19 06:06 03/20/19 06:06 INR, PTT INR 1.04 (0.83-1.09) 03/18/19 09:10 Problem List - Problems (1) MRSA bacteremia Code(s): R78.81 - BACTEREMIA (2) Fever Code(s): R50.9 - FEVER, UNSPECIFIED Qualifiers: Fever type: unspecified Qualified Code(s): R50.9 - Fever, unspecified (3) Acute metabolic encephalopathy Code(s): G93.41 - METABOLIC ENCEPHALOPATHY (4) CVA, old, aphasia Code(s): I69.320 - APHASIA FOLLOWING CEREBRAL INFARCTION (5) ESRD (end stage renal disease) on dialysis Code(s): N18.6 - END STAGE RENAL DISEASE; Z99.2 - DEPENDENCE ON RENAL DIALYSIS (6) Hypertension Code(s): I10 - ESSENTIAL (PRIMARY) HYPERTENSION Qualifiers: Hypertension type: essential hypertension Qualified Code(s): I10 - Essential (primary) hypertension (7) Seizure Code(s): R56.9 - UNSPECIFIED CONVULSIONS (8) Hyperlipidemia Code(s): E78.5 - HYPERLIPIDEMIA, UNSPECIFIED Qualifiers: Hyperlipidemia type: pure hypercholesterolemia Qualified Code(s): E78.00 - Pure hypercholesterolemia, unspecified; E78.0 - Pure hypercholesterolemia (9) Infection of AV graft for dialysis Code(s): T82.7XXA - INFECT/INFLM REACT D/T OTH CARDI/VASC DEV/IMPLNT/GRFT, INIT Assessment/Plan 03/14/2019 Echo: Normal LV and RV size and fxn, mild MR, TR 1. Fever, MRSA bacteremia post infected RUE AVG removal and shiley insertion 2. ESRD on HD via shiley 3. Hypercholesterolemia 4. History of CVA 5. HTN 6. Seizure disorder PLAN: 1. HD per renal, eventually need PC once MRSA bacteremia treatment concludes 2. Daptomycin per ID input with f/u surveillance cx to confirm clearance. 03/18 Bld Cx NGTD 3. Lipitor held while on Daptomycin 4. Continue ASA 81 mg QD, Lasix 40 mg QD and Labetolol 200 mg BID 5. DVT prophylaxis
[2019-03-22 13:16] LABS: HEMATOCRIT 24.4 % (35.4-49); HEMOGLOBIN 8.2 GM/dL (11.7-16.9); MCH 33.1 pg (25.7-33.7); MCHC 33.4 g/dl (32.0-35.9); MEAN CELL VOLUME 99.2 fl (80-96); MEAN PLT VOLUME 8.1 fl (7.5-11.1); PLATELET COUNT 310 K/MM3 (134-434); RBC 2.46 M/mm3 (4.00-5.60); WHITE BLOOD COUNT 5.4 K/mm3 (4.0-10.0)
--- NOTE | 2019-03-22 13:16 | PN ---
Progress Note (short form) - Note Progress Note: pt seen/ examined in Dialysis chart reviewed all f/u noted/ appreciated Vital Signs Temp 98.6 F 03/22/19 06:00 Pulse 73 03/22/19 06:00 Resp 18 03/22/19 06:00 BP 139/66 03/22/19 06:00 Pulse Ox 97 03/21/19 21:00 Intake & Output 03/21/19 03/22/19 03/22/19 23:59 11:59 23:59 Intake Total 650 Balance 650 Weight 111 lb 1.6 oz Intake: Oral 650 Other: Voiding Method Incontinent # Unmeasured Voids Void 1 Bowel Movement No No # Bowel Movements 1 Weight Measurement Method Built in [facility] Active Medications Acetaminophen (Tylenol -) 650 mg PO Q4H PRN PRN Reason: PAIN OR FEVER Aspirin (Asa -) 81 mg PO DAILY [facility] Last Admin: 03/22/19 09:21 Dose: 81 mg Calcium Acetate (Phoslo -) 667 mg PO TIDCM [facility] Last Admin: 03/22/19 09:21 Dose: 667 mg Epoetin Juanito (Procrit -) 6,000 unit IVPUSH ONCE ONE Stop: 03/22/19 14:01 Furosemide (Lasix -) 40 mg PO DAILY [facility] Last Admin: 03/21/19 09:31 Dose: 40 mg Daptomycin 440 mg/ Sodium (Chloride) 50 mls @ 50 mls/hr IVPB Q48H [facility]; Protocol Last Admin: 03/20/19 17:05 Dose: 50 mls/hr Sodium Chloride (Normal Saline -) 250 mls @ 3,000 mls/hr IV PRN PRN PRN Reason: Hypotension during Dialysis Stop: 03/22/19 14:01 Labetalol HCl (Normodyne -) 200 mg PO BID [facility] Last Admin: 03/21/19 21:54 Dose: 200 mg Phenytoin Sodium (Dilantin Oral Suspension -) 200 mg PO BID [facility] Last Admin: 03/22/19 09:25 Dose: 200 mg Sertraline HCl (Zoloft -) 50 mg PO DAILY [facility] Last Admin: 03/22/19 09:21 Dose: 50 mg Microbiology 03/18/19 08:50 Blood Culture - Preliminary Blood - Peripheral Venous NO GROWTH OBTAINED AFTER 96 HOURS, INCUBATION TO CONTINUE FOR 1 DAYS. 03/18/19 09:10 Blood Culture - Preliminary Blood - Peripheral Venous NO GROWTH OBTAINED AFTER 96 HOURS, INCUBATION TO CONTINUE FOR 1 DAYS. 03/20/19 06:06 Blood Culture - Preliminary Blood - Shiley Catheter NO GROWTH OBTAINED AFTER 48 HOURS, INCUBATION TO CONTINUE FOR 3 DAYS. 03/20/19 06:06 Blood Culture - Preliminary Blood - Shiley Catheter NO GROWTH OBTAINED AFTER 48 HOURS, INCUBATION TO CONTINUE FOR 3 DAYS. Physical S1 S2 RRR Lungs -- Diminished Abd- soft, NT no edema Shiley - Neck + neuro- awake PLAN s/p removal of infected avg repeated blood cultures-- negative so far abx echo negative HD per renal . will follow. Problem List - Problems (1) Fever Code(s): R50.9 - FEVER, UNSPECIFIED Qualifiers: Fever type: unspecified Qualified Code(s): R50.9 - Fever, unspecified (2) Acute metabolic encephalopathy Code(s): G93.41 - METABOLIC ENCEPHALOPATHY (3) Altered mental status, unspecified Code(s): R41.82 - ALTERED MENTAL STATUS, UNSPECIFIED Qualifiers: Altered mental status type: unspecified Qualified Code(s): R41.82 - Altered mental status, unspecified (4) CVA, old, aphasia Code(s): I69.320 - APHASIA FOLLOWING CEREBRAL INFARCTION (5) ESRD (end stage renal disease) on dialysis Code(s): N18.6 - END STAGE RENAL DISEASE; Z99.2 - DEPENDENCE ON RENAL DIALYSIS Problem List - Problems (1) Fever Code(s): R50.9 - FEVER, UNSPECIFIED Qualifiers: Fever type: unspecified Qualified Code(s): R50.9 - Fever, unspecified (2) Acute metabolic encephalopathy Code(s): G93.41 - METABOLIC ENCEPHALOPATHY (3) CVA, old, aphasia Code(s): I69.320 - APHASIA FOLLOWING CEREBRAL INFARCTION (4) ESRD (end stage renal disease) on dialysis Code(s): N18.6 - END STAGE RENAL DISEASE; Z99.2 - DEPENDENCE ON RENAL DIALYSIS
[2019-03-22 13:56] LABS: BLOOD UREA NITROGEN 43.3 mg/dL (7-18); CALCIUM 7.7 mg/dL (8.5-10.1); CREATININE 6.7 mg/dL (0.55-1.3); POTASSIUM 5.1 mmol/L (3.5-5.1)
[2019-03-22] MEDS ORDERED: EPOETIN ALFA 3,000 UNIT/1 ML ML IVPUSH ONE (14:00)
[2019-03-22] MEDS ORDERED: SODIUM CHLORIDE 250 ML IV PRN (14:00)
--- NOTE | 2019-03-22 15:25 | PN ---
Progress Note, Physician History of Present Illness: Pt seen and examined at bedside. He tolerated HD. He is still on abx. - Current Medication List Current Medications: Active Medications Acetaminophen (Tylenol -) 650 mg PO Q4H PRN PRN Reason: PAIN OR FEVER Aspirin (Asa -) 81 mg PO DAILY [facility] Last Admin: 03/22/19 09:21 Dose: 81 mg Calcium Acetate (Phoslo -) 667 mg PO TIDCM [facility] Last Admin: 03/22/19 09:21 Dose: 667 mg Furosemide (Lasix -) 40 mg PO DAILY [facility] Last Admin: 03/21/19 09:31 Dose: 40 mg Daptomycin 440 mg/ Sodium (Chloride) 50 mls @ 50 mls/hr IVPB Q48H [facility]; Protocol Last Admin: 03/20/19 17:05 Dose: 50 mls/hr Labetalol HCl (Normodyne -) 200 mg PO BID [facility] Last Admin: 03/21/19 21:54 Dose: 200 mg Phenytoin Sodium (Dilantin Oral Suspension -) 200 mg PO BID [facility] Last Admin: 03/22/19 09:25 Dose: 200 mg Sertraline HCl (Zoloft -) 50 mg PO DAILY [facility] Last Admin: 03/22/19 09:21 Dose: 50 mg - Objective Vital Signs: Vital Signs Temperature 97.9 F 03/22/19 11:45 Pulse Rate 78 03/22/19 13:30 Respiratory Rate 18 03/22/19 13:30 Blood Pressure 148/63 03/22/19 13:30 O2 Sat by Pulse Oximetry (%) 97 03/21/19 21:00 Eyes: Yes: Conjunctiva Clear Cardiovascular: Yes: S1, S2 Respiratory: Yes: CTA Bilaterally Gastrointestinal: Yes: Soft Genitourinary: Yes: Incontinence Musculoskeletal: Yes: Muscle Weakness Edema: No Neurological: Yes: Pre-Existing Deficit Labs: CBC, BMP 03/22/19 12:00 03/22/19 12:00 INR, PTT INR 1.04 (0.83-1.09) 03/18/19 09:10 Problem List - Problems (1) Fever Code(s): R50.9 - FEVER, UNSPECIFIED Qualifiers: Fever type: unspecified Qualified Code(s): R50.9 - Fever, unspecified (2) ESRD (end stage renal disease) on dialysis Code(s): N18.6 - END STAGE RENAL DISEASE; Z99.2 - DEPENDENCE ON RENAL DIALYSIS Assessment/Plan Current Medications Generic Name Dose Route Start Last Admin Trade Name Freq PRN Reason Stop Dose Admin Acetaminophen 650 mg 03/19/19 12:37 Tylenol - PO Q4H PRN PAIN OR FEVER Aspirin 81 mg 03/19/19 10:00 03/22/19 09:21 Asa - PO 81 mg DAILY TYREE Administration Calcium Acetate 667 mg 03/18/19 17:30 03/22/19 09:21 Phoslo - PO 667 mg TIDCM TYREE Administration Furosemide 40 mg 03/19/19 10:00 03/21/19 09:31 Lasix - PO 40 mg DAILY TYREE Administration Daptomycin 440 mg/ Sodium 50 mls @ 50 mls/hr 03/18/19 15:30 03/20/19 17:05 Chloride IVPB 50 mls/hr Q48H TYREE Administration Protocol Labetalol HCl 200 mg 03/18/19 22:00 03/21/19 21:54 Normodyne - PO 200 mg BID TYREE Administration Phenytoin Sodium 200 mg 03/18/19 22:00 03/22/19 09:25 Dilantin Oral Suspension - PO 200 mg BID TYREE Administration Sertraline HCl 50 mg 03/19/19 10:00 03/22/19 09:21 Zoloft - PO 50 mg DAILY TYREE Administration Microbiology 03/20/19 06:06 Blood - Shiley Catheter Blood Culture - Preliminary NO GROWTH OBTAINED AFTER 48 HOURS, INCUBATION TO CONTINUE FOR 3 DAYS. 03/20/19 06:06 Blood - Shiley Catheter Blood Culture - Preliminary NO GROWTH OBTAINED AFTER 48 HOURS, INCUBATION TO CONTINUE FOR 3 DAYS. 03/18/19 09:10 Blood - Peripheral Venous Blood Culture - Preliminary NO GROWTH OBTAINED AFTER 96 HOURS, INCUBATION TO CONTINUE FOR 1 DAYS. 03/18/19 08:50 Blood - Peripheral Venous Blood Culture - Preliminary NO GROWTH OBTAINED AFTER 96 HOURS, INCUBATION TO CONTINUE FOR 1 DAYS. Impression 1. ESRD 2. chol 3. hx CVA 4. HTN 5. fever 6. epilepsy 7. bacteremia Plan - HD today - will arrange for next HD on Monday, will see pt on Monday - cont to follow cultures - abx per ID - cont wound care - vascular follow up, will need pc once cleared by ID - HD 3:30 2 k bath, 1000 heparin bolus 500 per hr, right arm AVF
[2019-03-22] MEDS: FUROSEMIDE 40 MG TABLET (FP) PO SCH (15:30)
[2019-03-22] MEDS: LABETALOL HCL 200 MG TABLET (FP) PO SCH ×2 (15:30→21:23)
[2019-03-22] MEDS: DAPTOMYCIN 440 MG in SODIUM CHLORIDE 50 ML IVPB SCH (17:14)
[2019-03-23] MEDS: ASPIRIN 81 MG CHEWABLE TABLETS PO SCH (09:47)
[2019-03-23] MEDS: CALCIUM ACETATE 667 MG CAPSULE (FP) PO SCH ×3 (09:47→18:24)
[2019-03-23] MEDS: SERTRALINE HCL 50 MG TABLET (FP) PO SCH (09:47)
[2019-03-23] MEDS: LABETALOL HCL 200 MG TABLET (FP) PO SCH ×2 (09:47→23:03)
[2019-03-23] MEDS: FUROSEMIDE 40 MG TABLET (FP) PO SCH (09:48)
[2019-03-23] MEDS: PHENYTOIN 100 MG/4 ML U-D CUP PO SCH ×2 (09:48→23:08)
--- NOTE | 2019-03-23 10:29 | PN ---
Progress Note (short form) - Note Progress Note: pt examined no distress s/p excision of infected AVG Vital Signs - 24 hr 03/22/19 03/22/19 03/22/19 11:45 12:00 12:30 Temperature 97.9 F Pulse Rate 78 91 H 80 Respiratory 18 18 18 Rate Blood Pressure 166/64 153/66 156/63 O2 Sat by Pulse Oximetry (%) 03/22/19 03/22/19 03/22/19 13:00 13:30 14:00 Temperature Pulse Rate 75 78 75 Respiratory 18 18 18 Rate Blood Pressure 153/56 L 148/63 156/51 L O2 Sat by Pulse Oximetry (%) 03/22/19 03/22/19 03/22/19 14:30 15:00 15:30 Temperature Pulse Rate 80 79 81 Respiratory 18 18 18 Rate Blood Pressure 151/55 L 149/59 L 126/87 O2 Sat by Pulse Oximetry (%) 03/22/19 03/22/19 03/22/19 15:40 16:30 21:00 Temperature 97.7 F 97.7 F Pulse Rate 93 H 83 Respiratory 18 18 Rate Blood Pressure 140/67 150/75 O2 Sat by Pulse 98 Oximetry (%) 03/22/19 03/23/19 22:00 06:00 Temperature 98.0 F 98.6 F Pulse Rate 84 92 H Respiratory 18 18 Rate Blood Pressure 140/72 176/82 H O2 Sat by Pulse Oximetry (%) Current Medications Generic Name Dose Route Start Last Admin Trade Name Freq PRN Reason Stop Dose Admin Acetaminophen 650 mg 03/19/19 12:37 Tylenol - PO Q4H PRN PAIN OR FEVER Aspirin 81 mg 03/19/19 10:00 03/23/19 09:47 Asa - PO 81 mg DAILY TYREE Administration Calcium Acetate 667 mg 03/18/19 17:30 03/23/19 09:47 Phoslo - PO 667 mg TIDCM TYREE Administration Furosemide 40 mg 03/19/19 10:00 03/23/19 09:48 Lasix - PO 40 mg DAILY TYREE Administration Daptomycin 440 mg/ Sodium 50 mls @ 50 mls/hr 03/18/19 15:30 03/22/19 17:14 Chloride IVPB 50 mls/hr Q48H TYREE Administration Protocol Labetalol HCl 200 mg 03/18/19 22:00 03/23/19 09:47 Normodyne - PO 200 mg BID TYREE Administration Phenytoin Sodium 200 mg 03/18/19 22:00 03/23/19 09:48 Dilantin Oral Suspension - PO 200 mg BID TYREE Administration Sertraline HCl 50 mg 03/19/19 10:00 03/23/19 09:47 Zoloft - PO 50 mg DAILY [facility]YREE Administration Laboratory Results - last 24 hr 03/22/19 03/22/19 12:00 12:00 WBC 5.4 RBC 2.46 L Hgb 8.2 L Hct 24.4 L MCV 99.2 H MCH 33.1 MCHC 33.4 RDW 14.0 Plt Count 310 MPV 8.1 Sodium 131 L Potassium 5.1 Chloride 93 L Carbon Dioxide 29 Anion Gap 9 BUN 43.3 H Creatinine 6.7 H Est GFR (CKD-EPI)AfAm 9.94 Est GFR (CKD-EPI)NonAf 8.58 Random Glucose 183 H Calcium 7.7 L S1 S2 RRR Lungs clear Abd- soft, NT no edema PLAN repeated blood cultures-- negative so far repeated again through IJ-- trialysis -- negative spoke with ID-- change antibiotics to Daptomycin echo negative Vascular eval noted-- no signs of infection on right AVF HD per renal Problem List - Problems (1) Fever Code(s): R50.9 - FEVER, UNSPECIFIED Qualifiers: Fever type: unspecified Qualified Code(s): R50.9 - Fever, unspecified (2) Acute metabolic encephalopathy Code(s): G93.41 - METABOLIC ENCEPHALOPATHY (3) Altered mental status, unspecified Code(s): R41.82 - ALTERED MENTAL STATUS, UNSPECIFIED Qualifiers: Altered mental status type: unspecified Qualified Code(s): R41.82 - Altered mental status, unspecified (4) CVA, old, aphasia Code(s): I69.320 - APHASIA FOLLOWING CEREBRAL INFARCTION (5) ESRD (end stage renal disease) on dialysis Code(s): N18.6 - END STAGE RENAL DISEASE; Z99.2 - DEPENDENCE ON RENAL DIALYSIS
[2019-03-23] MEDS ORDERED: PT OWN MED DRAWER 7, Y5N ONE ×3 (12:29→22:08)
--- NOTE | 2019-03-24 10:43 | PN ---
Progress Note (short form) - Note Progress Note: pt examined no distress Vital Signs - 24 hr 03/23/19 03/23/19 03/24/19 21:00 22:00 02:31 Temperature 98.2 F 97.8 F Pulse Rate 80 83 Respiratory 18 18 Rate Blood Pressure 138/64 158/76 O2 Sat by Pulse 100 Oximetry (%) 03/24/19 03/24/19 03/24/19 06:00 10:00 15:49 Temperature 98 F 98.1 F 98.2 F Pulse Rate 94 H 76 82 Respiratory 18 18 18 Rate Blood Pressure 150/60 125/68 146/75 O2 Sat by Pulse Oximetry (%) Current Medications Generic Name Dose Route Start Last Admin Trade Name Freq PRN Reason Stop Dose Admin Acetaminophen 650 mg 03/19/19 12:37 Tylenol - PO Q4H PRN PAIN OR FEVER Aspirin 81 mg 03/19/19 10:00 03/24/19 11:02 Asa - PO 81 mg DAILY [facility]REE Administration Calcium Acetate 667 mg 03/18/19 17:30 03/24/19 18:43 Phoslo - PO 667 mg TIDCM TYREE Administration Epoetin Juanito 10,000 unit 03/25/19 09:00 Epogen - IVPUSH 03/25/19 09:01 ONCE ONE Furosemide 40 mg 03/19/19 10:00 03/24/19 11:02 Lasix - PO 40 mg DAILY [facility]REE Administration Daptomycin 440 mg/ Sodium 50 mls @ 50 mls/hr 03/18/19 15:30 03/22/19 17:14 Chloride IVPB 50 mls/hr Q48H [facility]REE Administration Protocol Sodium Chloride 250 mls @ 3,000 mls/hr 03/24/19 09:00 Normal Saline - IV 03/25/19 09:00 PRN PRN Hypotension during Dialysis Labetalol HCl 200 mg 03/18/19 22:00 03/24/19 11:01 Normodyne - PO 200 mg BID T[facility]REE Administration Phenytoin Sodium 200 mg 03/18/19 22:00 03/24/19 11:04 Dilantin Oral Suspension - PO 200 mg BID [facility]REE Administration Sertraline HCl 50 mg 03/19/19 10:00 03/24/19 11:01 Zoloft - PO 50 mg DAILY T[facility]REE Administration S1 S2 RRR Lungs clear Abd- soft, NT no edema PLAN repeated blood cultures-- negative so far repeated again through IJ-- trialysis -- negative spoke with ID-- change antibiotics to Daptomycin echo negative Vascular eval noted-- no signs of infection on right AVF may need access-likely tomorrow HD per renal Problem List - Problems (1) Fever Code(s): R50.9 - FEVER, UNSPECIFIED Qualifiers: Fever type: unspecified Qualified Code(s): R50.9 - Fever, unspecified (2) Acute metabolic encephalopathy Code(s): G93.41 - METABOLIC ENCEPHALOPATHY (3) Altered mental status, unspecified Code(s): R41.82 - ALTERED MENTAL STATUS, UNSPECIFIED Qualifiers: Altered mental status type: unspecified Qualified Code(s): R41.82 - Altered mental status, unspecified (4) CVA, old, aphasia Code(s): I69.320 - APHASIA FOLLOWING CEREBRAL INFARCTION (5) ESRD (end stage renal disease) on dialysis Code(s): N18.6 - END STAGE RENAL DISEASE; Z99.2 - DEPENDENCE ON RENAL DIALYSIS
[2019-03-24] MEDS: SERTRALINE HCL 50 MG TABLET (FP) PO SCH (11:01)
[2019-03-24] MEDS: CALCIUM ACETATE 667 MG CAPSULE (FP) PO SCH ×3 (11:01→18:43)
[2019-03-24] MEDS: LABETALOL HCL 200 MG TABLET (FP) PO SCH ×2 (11:01→22:58)
[2019-03-24] MEDS: FUROSEMIDE 40 MG TABLET (FP) PO SCH (11:02)
[2019-03-24] MEDS: ASPIRIN 81 MG CHEWABLE TABLETS PO SCH (11:02)
[2019-03-24] MEDS: PHENYTOIN 100 MG/4 ML U-D CUP PO SCH ×2 (11:04→23:02)
[2019-03-24] MEDS ORDERED: PT OWN MED DRAWER 7, Y5N ONE (14:39)
[2019-03-24] MEDS: DAPTOMYCIN 440 MG in SODIUM CHLORIDE 50 ML IVPB SCH (20:31)
[2019-03-25] MEDS: CALCIUM ACETATE 667 MG CAPSULE (FP) PO SCH ×3 (08:32→17:23)
[2019-03-25 08:51] LABS: HEMATOCRIT 26.1 % (35.4-49); HEMOGLOBIN 8.6 GM/dL (11.7-16.9); MCH 32.9 pg (25.7-33.7); MEAN CELL VOLUME 99.9 fl (80-96); MEAN PLT VOLUME 7.4 fl (7.5-11.1); PLATELET COUNT 371 K/MM3 (134-434); RBC 2.61 M/mm3 (4.00-5.60); RDW 14.3 % (11.9-15.9); WHITE BLOOD COUNT 4.2 K/mm3 (4.0-10.0)
[2019-03-25] MEDS ORDERED: SODIUM CHLORIDE 250 ML IV PRN (09:00)
[2019-03-25] MEDS ORDERED: EPOETIN ALFA 10,000 UNIT/1 ML VIAL IVPUSH ONE (09:00)
[2019-03-25 09:07] LABS: BLOOD UREA NITROGEN 51.5 mg/dL (7-18); CALCIUM 7.9 mg/dL (8.5-10.1); PHOSPHOROUS 2.7 mg/dL (2.5-4.9); POTASSIUM 5.6 mmol/L (3.5-5.1)
[2019-03-25 09:09] LABS: CREATININE 8.1 mg/dL (0.55-1.3)
--- NOTE | 2019-03-25 11:00 | PN ---
Progress Note, Physician History of Present Illness: Afebrile, MRSA bacteremia has cleared after removal of infected RUE AVF and placement of Shiley, seen at HD. IV d/kamaljit, Daptomycin given during HD. - Current Medication List Current Medications: Active Medications Acetaminophen (Tylenol -) 650 mg PO Q4H PRN PRN Reason: PAIN OR FEVER Aspirin (Asa -) 81 mg PO DAILY [facility] Last Admin: 03/24/19 11:02 Dose: 81 mg Calcium Acetate (Phoslo -) 667 mg PO TIDCM [facility] Last Admin: 03/25/19 08:32 Dose: Not Given Furosemide (Lasix -) 40 mg PO DAILY [facility] Last Admin: 03/24/19 11:02 Dose: 40 mg Labetalol HCl (Normodyne -) 200 mg PO BID [facility] Last Admin: 03/24/19 22:58 Dose: 200 mg Phenytoin Sodium (Dilantin Oral Suspension -) 200 mg PO BID [facility] Last Admin: 03/24/19 23:02 Dose: 200 mg Sertraline HCl (Zoloft -) 50 mg PO DAILY [facility] Last Admin: 03/24/19 11:01 Dose: 50 mg - Objective Vital Signs: Vital Signs Temperature 98.2 F 03/25/19 08:15 Pulse Rate 86 03/25/19 10:30 Respiratory Rate 16 03/25/19 10:30 Blood Pressure 121/57 L 03/25/19 10:30 O2 Sat by Pulse Oximetry (%) 99 03/24/19 21:00 Constitutional: Yes: No Distress, Calm, Thin Neck: Yes: Supple Cardiovascular: Yes: Regular Rate and Rhythm Respiratory: Yes: Regular, CTA Bilaterally Gastrointestinal: Yes: Soft, Hypoactive Bowel Sounds Edema: No Labs: CBC, BMP 03/25/19 08:15 03/25/19 08:15 INR, PTT INR 1.04 (0.83-1.09) 03/18/19 09:10 Problem List - Problems (1) MRSA bacteremia Code(s): R78.81 - BACTEREMIA (2) Fever Code(s): R50.9 - FEVER, UNSPECIFIED Qualifiers: Fever type: unspecified Qualified Code(s): R50.9 - Fever, unspecified (3) Acute metabolic encephalopathy Code(s): G93.41 - METABOLIC ENCEPHALOPATHY (4) CVA, old, aphasia Code(s): I69.320 - APHASIA FOLLOWING CEREBRAL INFARCTION (5) ESRD (end stage renal disease) on dialysis Code(s): N18.6 - END STAGE RENAL DISEASE; Z99.2 - DEPENDENCE ON RENAL DIALYSIS (6) Hypertension Code(s): I10 - ESSENTIAL (PRIMARY) HYPERTENSION Qualifiers: Hypertension type: essential hypertension Qualified Code(s): I10 - Essential (primary) hypertension (7) Seizure Code(s): R56.9 - UNSPECIFIED CONVULSIONS (8) Hyperlipidemia Code(s): E78.5 - HYPERLIPIDEMIA, UNSPECIFIED Qualifiers: Hyperlipidemia type: pure hypercholesterolemia Qualified Code(s): E78.00 - Pure hypercholesterolemia, unspecified; E78.0 - Pure hypercholesterolemia (9) Infection of AV graft for dialysis Code(s): T82.7XXA - INFECT/INFLM REACT D/T OTH CARDI/VASC DEV/IMPLNT/GRFT, INIT Assessment/Plan 03/14/2019 Echo: Normal LV and RV size and fxn, mild MR, TR 1. Fever, MRSA bacteremia post infected RUE AVG removal and shiley insertion 2. ESRD on HD via shiley 3. Hypercholesterolemia 4. History of CVA 5. HTN 6. Seizure disorder PLAN: 1. HD per renal, eventually need PC once MRSA bacteremia treatment concludes 2. Daptomycin during HD per ID input with f/u surveillance cx to confirm clearance. 03/18 Bld Cx NGTD 3. Lipitor held while on Daptomycin 4. Continue ASA 81 mg QD, Lasix 40 mg QD and Labetolol 200 mg BID 5. DVT prophylaxis
[2019-03-25] MEDS: SERTRALINE HCL 50 MG TABLET (FP) PO SCH (11:06)
[2019-03-25] MEDS: PHENYTOIN 100 MG/4 ML U-D CUP PO SCH ×2 (11:06→22:49)
[2019-03-25] MEDS: LABETALOL HCL 200 MG TABLET (FP) PO SCH ×3 (11:06→22:49)
[2019-03-25] MEDS: ASPIRIN 81 MG CHEWABLE TABLETS PO SCH (11:06)
[2019-03-25] MEDS: FUROSEMIDE 40 MG TABLET (FP) PO SCH (11:06)
--- NOTE | 2019-03-25 11:07 | PN ---
Progress Note (short form) - Note Progress Note: pt seen / examined chart reviewed afebrile Vital Signs Temp 98.2 F 03/25/19 08:15 Pulse 86 03/25/19 10:30 Resp 16 03/25/19 10:30 BP 121/57 L 03/25/19 10:30 Pulse Ox 99 03/24/19 21:00 Intake & Output 03/24/19 03/24/19 03/25/19 11:59 23:59 11:59 Intake Total 1060 720 0 Balance 1060 720 0 Weight 109 lb 7 oz 115 lb Intake: IV 0 0 0 Normal Saline - 250 ml @ 0 3000 mls/hr IV PRN PRN Rx #:[id number] TRIALYSIS 0 0 0 IVPB 0 0 Oral 580 480 Oral Supplement 480 240 Other: Voiding Method Incontinent Incontinent Incontinent # Unmeasured Voids Void 1 Bowel Movement No Yes # Bowel Movements 1 2 Weight Measurement Method Built in [facility] Active Medications Acetaminophen (Tylenol -) 650 mg PO Q4H PRN PRN Reason: PAIN OR FEVER Aspirin (Asa -) 81 mg PO DAILY [facility] Last Admin: 03/25/19 11:06 Dose: Not Given Calcium Acetate (Phoslo -) 667 mg PO TIDCM [facility] Last Admin: 03/25/19 08:32 Dose: Not Given Furosemide (Lasix -) 40 mg PO DAILY [facility] Last Admin: 03/25/19 11:06 Dose: Not Given Labetalol HCl (Normodyne -) 200 mg PO BID [facility] Last Admin: 03/25/19 11:06 Dose: Not Given Phenytoin Sodium (Dilantin Oral Suspension -) 200 mg PO BID [facility] Last Admin: 03/25/19 11:06 Dose: Not Given Sertraline HCl (Zoloft -) 50 mg PO DAILY [facility] Last Admin: 03/25/19 11:06 Dose: Not Given CBC, BMP 03/25/19 08:15 03/25/19 08:15 Microbiology 03/20/19 06:06 Blood Culture - Final Blood - Shiley Catheter NO GROWTH AFTER 5 DAYS INCUBATION 03/20/19 06:06 Blood Culture - Final Blood - Shiley Catheter NO GROWTH AFTER 5 DAYS INCUBATION Physical Exam S1 S2 RRR Lungs clear Abd- soft, NT no edema PLAN repeated blood cultures-- negative so far abx echo negative will need access vascular to follow will follow Problem List - Problems (1) Fever Code(s): R50.9 - FEVER, UNSPECIFIED Qualifiers: Fever type: unspecified Qualified Code(s): R50.9 - Fever, unspecified (2) Acute metabolic encephalopathy Code(s): G93.41 - METABOLIC ENCEPHALOPATHY (3) CVA, old, aphasia Code(s): I69.320 - APHASIA FOLLOWING CEREBRAL INFARCTION (4) ESRD (end stage renal disease) on dialysis Code(s): N18.6 - END STAGE RENAL DISEASE; Z99.2 - DEPENDENCE ON RENAL DIALYSIS
--- NOTE | 2019-03-25 14:56 | PN ---
Progress Note, Physician History of Present Illness: S/P EXCISION OF INFECTED R AVG, INSERTION OF SHILEY BC (03/18, 03/20) NO GROWTH AWAKE BUT APHASIC SHAKES HEAD "NO" WHEN ASKED ABOUT PAIN AFEBRILE - Current Medication List Current Medications: Active Medications Acetaminophen (Tylenol -) 650 mg PO Q4H PRN PRN Reason: PAIN OR FEVER Aspirin (Asa -) 81 mg PO DAILY [facility] Last Admin: 03/25/19 11:06 Dose: Not Given Calcium Acetate (Phoslo -) 667 mg PO TIDCM [facility] Last Admin: 03/25/19 12:38 Dose: 667 mg Furosemide (Lasix -) 40 mg PO DAILY [facility] Last Admin: 03/25/19 11:06 Dose: Not Given Labetalol HCl (Normodyne -) 200 mg PO BID [facility] Last Admin: 03/25/19 11:06 Dose: Not Given Phenytoin Sodium (Dilantin Oral Suspension -) 200 mg PO BID [facility] Last Admin: 03/25/19 11:06 Dose: Not Given Sertraline HCl (Zoloft -) 50 mg PO DAILY [facility] Last Admin: 03/25/19 11:06 Dose: Not Given - Objective Vital Signs: Vital Signs Temperature 97.4 F L 03/25/19 12:00 Pulse Rate 81 03/25/19 12:00 Respiratory Rate 18 03/25/19 12:00 Blood Pressure 139/59 L 03/25/19 12:00 O2 Sat by Pulse Oximetry (%) 99 03/24/19 21:00 Constitutional: Yes: No Distress, Thin Cardiovascular: Yes: Regular Rate and Rhythm, S1, S2 Respiratory: Yes: CTA Bilaterally Gastrointestinal: Yes: Normal Bowel Sounds, Soft. No: Tenderness Edema: No Labs: CBC, BMP 03/25/19 08:15 03/25/19 08:15 INR, PTT INR 1.04 (0.83-1.09) 03/18/19 09:10 Assessment/Plan MRSA BACTEREMIA/ PROBABLE ENDOCARDITIS S/P EXCISION OF INFECTED AVG S/P CVA CONTINUE DAPTOMYCIN @ 8MG/KG Q48H HOLD LIPITOR WHILE ON DAPTOMYCIN UPON DISCHARGE SWITCH TO VANCOMYCIN AT HD TO COMPLETE 6W COURSE (END DATE 04/26/19)
[2019-03-25] MEDS ORDERED: DAPTOMYCIN 440 MG in SODIUM CHLORIDE 50 ML IVPB SCH (15:00)
--- NOTE | 2019-03-25 15:25 | PN ---
Progress Note, Physician History of Present Illness: Pt seen and examined at bedside. He tolerated HD today. - Current Medication List Current Medications: Active Medications Acetaminophen (Tylenol -) 650 mg PO Q4H PRN PRN Reason: PAIN OR FEVER Aspirin (Asa -) 81 mg PO DAILY [facility] Last Admin: 03/25/19 11:06 Dose: Not Given Calcium Acetate (Phoslo -) 667 mg PO TIDCM [facility] Last Admin: 03/25/19 12:38 Dose: 667 mg Furosemide (Lasix -) 40 mg PO DAILY [facility] Last Admin: 03/25/19 11:06 Dose: Not Given Daptomycin 440 mg/ Sodium (Chloride) 50 mls @ 50 mls/hr IVPB Q48H [facility]; Protocol Labetalol HCl (Normodyne -) 200 mg PO BID [facility] Last Admin: 03/25/19 11:06 Dose: Not Given Phenytoin Sodium (Dilantin Oral Suspension -) 200 mg PO BID [facility] Last Admin: 03/25/19 11:06 Dose: Not Given Sertraline HCl (Zoloft -) 50 mg PO DAILY [facility] Last Admin: 03/25/19 11:06 Dose: Not Given - Objective Vital Signs: Vital Signs Temperature 98.3 F 03/25/19 15:18 Pulse Rate 81 03/25/19 12:00 Respiratory Rate 18 03/25/19 15:18 Blood Pressure 165/75 03/25/19 15:18 O2 Sat by Pulse Oximetry (%) 99 03/24/19 21:00 Constitutional: Yes: Calm Eyes: Yes: Conjunctiva Clear HENT: Yes: Atraumatic Cardiovascular: Yes: S1, S2 Respiratory: Yes: CTA Bilaterally Gastrointestinal: Yes: Soft Genitourinary: Yes: Incontinence Musculoskeletal: Yes: Muscle Weakness Edema: No Integumentary: Yes: WNL Neurological: Yes: Pre-Existing Deficit Labs: CBC, BMP 03/25/19 08:15 03/25/19 08:15 INR, PTT INR 1.04 (0.83-1.09) 03/18/19 09:10 Problem List - Problems (1) Fever Code(s): R50.9 - FEVER, UNSPECIFIED Qualifiers: Fever type: unspecified Qualified Code(s): R50.9 - Fever, unspecified (2) ESRD (end stage renal disease) on dialysis Code(s): N18.6 - END STAGE RENAL DISEASE; Z99.2 - DEPENDENCE ON RENAL DIALYSIS Assessment/Plan Current Medications Generic Name Dose Route Start Last Admin Trade Name Freq PRN Reason Stop Dose Admin Acetaminophen 650 mg 03/19/19 12:37 Tylenol - PO Q4H PRN PAIN OR FEVER Aspirin 81 mg 03/19/19 10:00 03/25/19 11:06 Asa - PO Not Given DAILY [facility] Calcium Acetate 667 mg 03/18/19 17:30 03/25/19 12:38 Phoslo - PO 667 mg TIDCM [facility] Administration Furosemide 40 mg 03/19/19 10:00 03/25/19 11:06 Lasix - PO Not Given DAILY [facility] Daptomycin 440 mg/ Sodium 50 mls @ 50 mls/hr 03/25/19 15:00 Chloride IVPB Q48H [facility] Protocol Labetalol HCl 200 mg 03/18/19 22:00 03/25/19 11:06 Normodyne - PO Not Given BID [facility] Phenytoin Sodium 200 mg 03/18/19 22:00 03/25/19 11:06 Dilantin Oral Suspension - PO Not Given BID [facility] Sertraline HCl 50 mg 03/19/19 10:00 03/25/19 11:06 Zoloft - PO Not Given DAILY [facility] Microbiology 03/20/19 06:06 Blood - Shiley Catheter Blood Culture - Final NO GROWTH AFTER 5 DAYS INCUBATION 03/20/19 06:06 Blood - Shiley Catheter Blood Culture - Final NO GROWTH AFTER 5 DAYS INCUBATION 03/18/19 09:10 Blood - Peripheral Venous Blood Culture - Final NO GROWTH AFTER 5 DAYS INCUBATION 03/18/19 08:50 Blood - Peripheral Venous Blood Culture - Final NO GROWTH AFTER 5 DAYS INCUBATION Impression 1. ESRD 2. chol 3. hx CVA 4. HTN 5. fever 6. epilepsy 7. bacteremia Plan - pt tolerated HD today - cultures noted - vascular follow up - abx per ID - cont wound care - HD 3:30 2 k bath, 1000 heparin bolus 500 per hr, right arm AVF
[2019-03-25] MEDS ORDERED: PT OWN MED DRAWER 7, Y5N ONE (16:58)
[2019-03-26] MEDS: ASPIRIN 81 MG CHEWABLE TABLETS PO SCH (09:56)
[2019-03-26] MEDS: FUROSEMIDE 40 MG TABLET (FP) PO SCH (09:56)
[2019-03-26] MEDS: PHENYTOIN 100 MG/4 ML U-D CUP PO SCH ×2 (09:57→23:08)
[2019-03-26] MEDS: LABETALOL HCL 200 MG TABLET (FP) PO SCH ×2 (09:57→23:09)
[2019-03-26] MEDS: SERTRALINE HCL 50 MG TABLET (FP) PO SCH (09:57)
[2019-03-26] MEDS: CALCIUM ACETATE 667 MG CAPSULE (FP) PO SCH ×3 (09:57→17:11)
--- NOTE | 2019-03-26 15:09 | PN ---
Progress Note (short form) - Note Progress Note: pt examined no distress Vital Signs - 24 hr 03/25/19 03/25/19 03/25/19 15:18 21:00 23:14 Temperature 98.3 F 98.7 F Pulse Rate 84 Respiratory 18 20 Rate Blood Pressure 165/75 158/82 O2 Sat by Pulse 99 Oximetry (%) 03/26/19 03/26/19 03/26/19 06:00 09:00 10:00 Temperature 98.1 F 98.8 F Pulse Rate 83 89 Respiratory 20 20 20 Rate Blood Pressure 135/65 148/72 O2 Sat by Pulse 98 Oximetry (%) 03/26/19 14:43 Temperature 0.7 F L Pulse Rate 88 Respiratory 20 Rate Blood Pressure 124/64 O2 Sat by Pulse Oximetry (%) Current Medications Generic Name Dose Route Start Last Admin Trade Name Freq PRN Reason Stop Dose Admin Acetaminophen 650 mg 03/19/19 12:37 Tylenol - PO Q4H PRN PAIN OR FEVER Aspirin 81 mg 03/19/19 10:00 03/26/19 09:56 Asa - PO 81 mg DAILY [facility] Administration Calcium Acetate 667 mg 03/18/19 17:30 03/26/19 11:43 Phoslo - PO 667 mg TIDCM [facility] Administration Furosemide 40 mg 03/19/19 10:00 03/26/19 09:56 Lasix - PO 40 mg DAILY [facility] Administration Daptomycin 440 mg/ Sodium 50 mls @ 50 mls/hr 03/25/19 15:00 03/25/19 17:23 Chloride IVPB 50 mls/hr Q48H [facility] Administration Protocol Labetalol HCl 200 mg 03/18/19 22:00 03/26/19 09:57 Normodyne - PO 200 mg BID [facility] Administration Phenytoin Sodium 200 mg 03/18/19 22:00 03/26/19 09:57 Dilantin Oral Suspension - PO 200 mg BID [facility] Administration Sertraline HCl 50 mg 03/19/19 10:00 03/26/19 09:57 Zoloft - PO 50 mg DAILY [facility] Administration trialysis catheter S1 S2 RRR Lungs clear Abd- soft, NT no edema PLAN repeated blood cultures-- negative so far repeated again through IJ-- trialysis -- negative echo negative Vascular eval noted-- no signs of infection on right AVF may need access-likely tomorrow -->permacath dc planning after he gets permacath-- will be on iv vanco during HD per ID HD per renal Problem List - Problems (1) Fever Code(s): R50.9 - FEVER, UNSPECIFIED Qualifiers: Fever type: unspecified Qualified Code(s): R50.9 - Fever, unspecified (2) Acute metabolic encephalopathy Code(s): G93.41 - METABOLIC ENCEPHALOPATHY (3) Altered mental status, unspecified Code(s): R41.82 - ALTERED MENTAL STATUS, UNSPECIFIED Qualifiers: Altered mental status type: unspecified Qualified Code(s): R41.82 - Altered mental status, unspecified (4) CVA, old, aphasia Code(s): I69.320 - APHASIA FOLLOWING CEREBRAL INFARCTION (5) ESRD (end stage renal disease) on dialysis Code(s): N18.6 - END STAGE RENAL DISEASE; Z99.2 - DEPENDENCE ON RENAL DIALYSIS
--- NOTE | 2019-03-26 15:12 | PN ---
Progress Note (short form) - Note Progress Note: Vascular Surgery Pt needs permacath prior to DC. Will do permacath gen at 3pm. NPO past midnite. Homer Jc DO Problem List - Problems (1) MRSA bacteremia Code(s): R78.81 - BACTEREMIA
--- NOTE | 2019-03-26 19:16 | PN ---
Progress Note, Physician History of Present Illness: Pt seen and examined at bedside. His mental status is at baseline. - Current Medication List Current Medications: Active Medications Acetaminophen (Tylenol -) 650 mg PO Q4H PRN PRN Reason: PAIN OR FEVER Aspirin (Asa -) 81 mg PO DAILY [facility] Last Admin: 03/26/19 09:56 Dose: 81 mg Calcium Acetate (Phoslo -) 667 mg PO TIDCM [facility] Last Admin: 03/26/19 17:11 Dose: 667 mg Furosemide (Lasix -) 40 mg PO DAILY [facility] Last Admin: 03/26/19 09:56 Dose: 40 mg Daptomycin 440 mg/ Sodium (Chloride) 50 mls @ 50 mls/hr IVPB Q48H [facility]; Protocol Last Admin: 03/25/19 17:23 Dose: 50 mls/hr Labetalol HCl (Normodyne -) 200 mg PO BID [facility] Last Admin: 03/26/19 09:57 Dose: 200 mg Phenytoin Sodium (Dilantin Oral Suspension -) 200 mg PO BID [facility] Last Admin: 03/26/19 09:57 Dose: 200 mg Sertraline HCl (Zoloft -) 50 mg PO DAILY [facility] Last Admin: 03/26/19 09:57 Dose: 50 mg - Objective Vital Signs: Vital Signs Temperature 0.7 F L 03/26/19 14:43 Pulse Rate 88 03/26/19 14:43 Respiratory Rate 20 03/26/19 14:43 Blood Pressure 124/64 03/26/19 14:43 O2 Sat by Pulse Oximetry (%) 98 03/26/19 09:00 Constitutional: Yes: Calm Eyes: Yes: Conjunctiva Clear HENT: Yes: Atraumatic Neck: Yes: Supple Cardiovascular: Yes: S1, S2 Respiratory: Yes: CTA Bilaterally Gastrointestinal: Yes: Soft Genitourinary: Yes: WNL Musculoskeletal: Yes: Muscle Weakness Edema: No Wound/Incision: Yes: Dressing Dry and Intact Neurological: Yes: Pre-Existing Deficit Labs: CBC, BMP 03/25/19 08:15 03/25/19 08:15 INR, PTT INR 1.04 (0.83-1.09) 03/18/19 09:10 Problem List - Problems (1) Fever Code(s): R50.9 - FEVER, UNSPECIFIED Qualifiers: Fever type: unspecified Qualified Code(s): R50.9 - Fever, unspecified (2) ESRD (end stage renal disease) on dialysis Code(s): N18.6 - END STAGE RENAL DISEASE; Z99.2 - DEPENDENCE ON RENAL DIALYSIS Assessment/Plan Current Medications Generic Name Dose Route Start Last Admin Trade Name Freq PRN Reason Stop Dose Admin Acetaminophen 650 mg 03/19/19 12:37 Tylenol - PO Q4H PRN PAIN OR FEVER Aspirin 81 mg 03/19/19 10:00 03/26/19 09:56 Asa - PO 81 mg DAILY [facility] Administration Calcium Acetate 667 mg 03/18/19 17:30 03/26/19 17:11 Phoslo - PO 667 mg TIDCM [facility] Administration Furosemide 40 mg 03/19/19 10:00 03/26/19 09:56 Lasix - PO 40 mg DAILY [facility] Administration Daptomycin 440 mg/ Sodium 50 mls @ 50 mls/hr 03/25/19 15:00 03/25/19 17:23 Chloride IVPB 50 mls/hr Q48H [facility] Administration Protocol Labetalol HCl 200 mg 03/18/19 22:00 03/26/19 09:57 Normodyne - PO 200 mg BID [facility] Administration Phenytoin Sodium 200 mg 03/18/19 22:00 03/26/19 09:57 Dilantin Oral Suspension - PO 200 mg BID [facility] Administration Sertraline HCl 50 mg 03/19/19 10:00 03/26/19 09:57 Zoloft - PO 50 mg DAILY [facility] Administration Microbiology 03/20/19 06:06 Blood - Shiley Catheter Blood Culture - Final NO GROWTH AFTER 5 DAYS INCUBATION 03/20/19 06:06 Blood - Shiley Catheter Blood Culture - Final NO GROWTH AFTER 5 DAYS INCUBATION 03/18/19 09:10 Blood - Peripheral Venous Blood Culture - Final NO GROWTH AFTER 5 DAYS INCUBATION 03/18/19 08:50 Blood - Peripheral Venous Blood Culture - Final NO GROWTH AFTER 5 DAYS INCUBATION Impression 1. ESRD 2. chol 3. hx CVA 4. HTN 5. fever 6. epilepsy 7. bacteremia Plan - HD tomorrow - pt going for permacath tomorrow - vascular input appreciated - abx per ID - cont wound care - HD 3:30 2 k bath, 1000 heparin bolus 500 per hr, right arm AVF
[2019-03-26] MEDS ORDERED: PT OWN MED DRAWER 7, Y5N ONE (22:51)
[2019-03-27] MEDS: FUROSEMIDE 40 MG TABLET (FP) PO SCH ×2 (11:20→11:55)
[2019-03-27] MEDS: PHENYTOIN 100 MG/4 ML U-D CUP PO SCH ×3 (11:20→22:42)
[2019-03-27] MEDS: CALCIUM ACETATE 667 MG CAPSULE (FP) PO SCH ×3 (11:20→17:21)
[2019-03-27] MEDS: SERTRALINE HCL 50 MG TABLET (FP) PO SCH ×2 (11:20→11:55)
[2019-03-27] MEDS: LABETALOL HCL 200 MG TABLET (FP) PO SCH ×3 (11:20→22:42)
[2019-03-27] MEDS: ASPIRIN 81 MG CHEWABLE TABLETS PO SCH (11:20)
--- NOTE | 2019-03-27 11:53 | PN ---
Progress Note, Physician History of Present Illness: Afebrile, MRSA bacteremia has cleared after removal of infected RUE AVF and placement of Shiley, seen at HD. Daptomycin given during HD. Plan for PC today. - Current Medication List Current Medications: Active Medications Acetaminophen (Tylenol -) 650 mg PO Q4H PRN PRN Reason: PAIN OR FEVER Aspirin (Asa -) 81 mg PO DAILY [facility] Last Admin: 03/27/19 11:20 Dose: Not Given Calcium Acetate (Phoslo -) 667 mg PO TIDCM [facility] Last Admin: 03/27/19 11:21 Dose: Not Given Furosemide (Lasix -) 40 mg PO DAILY [facility] Last Admin: 03/27/19 11:20 Dose: Not Given Daptomycin 440 mg/ Sodium (Chloride) 50 mls @ 50 mls/hr IVPB Q48H [facility]; Protocol Last Admin: 03/25/19 17:23 Dose: 50 mls/hr Labetalol HCl (Normodyne -) 200 mg PO BID [facility] Last Admin: 03/27/19 11:20 Dose: Not Given Phenytoin Sodium (Dilantin Oral Suspension -) 200 mg PO BID [facility] Last Admin: 03/27/19 11:20 Dose: Not Given Sertraline HCl (Zoloft -) 50 mg PO DAILY [facility] Last Admin: 03/27/19 11:20 Dose: Not Given - Objective Vital Signs: Vital Signs Temperature 98.8 F 03/27/19 10:00 Pulse Rate 89 03/27/19 10:00 Respiratory Rate 20 03/27/19 10:00 Blood Pressure 156/69 03/27/19 10:00 O2 Sat by Pulse Oximetry (%) 98 03/27/19 09:00 Constitutional: Yes: No Distress, Calm Neck: Yes: Supple Cardiovascular: Yes: Regular Rate and Rhythm Respiratory: Yes: Regular, Diminished Gastrointestinal: Yes: Normal Bowel Sounds, Soft Edema: No Labs: CBC, BMP 03/25/19 08:15 03/25/19 08:15 INR, PTT INR 1.04 (0.83-1.09) 03/18/19 09:10 Problem List - Problems (1) MRSA bacteremia Code(s): R78.81 - BACTEREMIA (2) Fever Code(s): R50.9 - FEVER, UNSPECIFIED Qualifiers: Fever type: unspecified Qualified Code(s): R50.9 - Fever, unspecified (3) Acute metabolic encephalopathy Code(s): G93.41 - METABOLIC ENCEPHALOPATHY (4) CVA, old, aphasia Code(s): I69.320 - APHASIA FOLLOWING CEREBRAL INFARCTION (5) ESRD (end stage renal disease) on dialysis Code(s): N18.6 - END STAGE RENAL DISEASE; Z99.2 - DEPENDENCE ON RENAL DIALYSIS (6) Hypertension Code(s): I10 - ESSENTIAL (PRIMARY) HYPERTENSION Qualifiers: Hypertension type: essential hypertension Qualified Code(s): I10 - Essential (primary) hypertension (7) Seizure Code(s): R56.9 - UNSPECIFIED CONVULSIONS (8) Hyperlipidemia Code(s): E78.5 - HYPERLIPIDEMIA, UNSPECIFIED Qualifiers: Hyperlipidemia type: pure hypercholesterolemia Qualified Code(s): E78.00 - Pure hypercholesterolemia, unspecified; E78.0 - Pure hypercholesterolemia (9) Infection of AV graft for dialysis Code(s): T82.7XXA - INFECT/INFLM REACT D/T OTH CARDI/VASC DEV/IMPLNT/GRFT, INIT Assessment/Plan 03/14/2019 Echo: Normal LV and RV size and fxn, mild MR, TR 1. Fever, MRSA bacteremia post infected RUE AVG removal and shiley insertion 2. ESRD on HD via shiley 3. Hypercholesterolemia 4. History of CVA 5. HTN 6. Seizure disorder PLAN: 1. HD per renal, plan for PC today as MRSA bacteremia has cleared 2. Daptomycin during HD per ID input with f/u surveillance cx to confirm clearance. 03/18 Bld Cx NGTD 3. Lipitor held while on Daptomycin 4. Continue ASA 81 mg QD, Lasix 40 mg QD and Labetolol 200 mg BID 5. DVT prophylaxis
[2019-03-27] MEDS ORDERED: SODIUM CHLORIDE 250 ML IV PRN ×2 (13:21→17:06)
[2019-03-27] MEDS ORDERED: EPOETIN ALFA 2,000 UNIT/1 ML VIAL IVPUSH ONE (13:21)
--- NOTE | 2019-03-27 13:21 | PN ---
Progress Note, Physician History of Present Illness: Pt seen and examined at bedside. He is awake and appears comfortable. He is going for Permacath today. - Current Medication List Current Medications: Active Medications Acetaminophen (Tylenol -) 650 mg PO Q4H PRN PRN Reason: PAIN OR FEVER Aspirin (Asa -) 81 mg PO DAILY [facility] Last Admin: 03/27/19 11:20 Dose: Not Given Calcium Acetate (Phoslo -) 667 mg PO TIDCM [facility] Last Admin: 03/27/19 11:21 Dose: Not Given Furosemide (Lasix -) 40 mg PO DAILY [facility] Last Admin: 03/27/19 11:55 Dose: 40 mg Daptomycin 440 mg/ Sodium (Chloride) 50 mls @ 50 mls/hr IVPB Q48H [facility]; Protocol Last Admin: 03/25/19 17:23 Dose: 50 mls/hr Labetalol HCl (Normodyne -) 200 mg PO BID [facility] Last Admin: 03/27/19 11:55 Dose: 200 mg Phenytoin Sodium (Dilantin Oral Suspension -) 200 mg PO BID [facility] Last Admin: 03/27/19 11:56 Dose: 200 mg Sertraline HCl (Zoloft -) 50 mg PO DAILY [facility] Last Admin: 03/27/19 11:55 Dose: 50 mg - Objective Vital Signs: Vital Signs Temperature 98.8 F 03/27/19 10:00 Pulse Rate 89 03/27/19 10:00 Respiratory Rate 20 03/27/19 10:00 Blood Pressure 156/69 03/27/19 10:00 O2 Sat by Pulse Oximetry (%) 98 03/27/19 09:00 Constitutional: Yes: Calm Eyes: Yes: Conjunctiva Clear HENT: Yes: Atraumatic Neck: Yes: Supple Cardiovascular: Yes: S1, S2 Gastrointestinal: Yes: Soft Genitourinary: Yes: Incontinence Musculoskeletal: Yes: WNL Edema: No Integumentary: Yes: WNL Neurological: Yes: Pre-Existing Deficit Labs: CBC, BMP 03/25/19 08:15 03/25/19 08:15 INR, PTT INR 1.04 (0.83-1.09) 03/18/19 09:10 Problem List - Problems (1) Fever Code(s): R50.9 - FEVER, UNSPECIFIED Qualifiers: Fever type: unspecified Qualified Code(s): R50.9 - Fever, unspecified (2) ESRD (end stage renal disease) on dialysis Code(s): N18.6 - END STAGE RENAL DISEASE; Z99.2 - DEPENDENCE ON RENAL DIALYSIS Assessment/Plan Current Medications Generic Name Dose Route Start Last Admin Trade Name Freq PRN Reason Stop Dose Admin Acetaminophen 650 mg 03/19/19 12:37 Tylenol - PO Q4H PRN PAIN OR FEVER Aspirin 81 mg 03/19/19 10:00 03/27/19 11:20 Asa - PO Not Given DAILY [facility] Calcium Acetate 667 mg 03/18/19 17:30 03/27/19 11:21 Phoslo - PO Not Given TIDCM [facility] Furosemide 40 mg 03/19/19 10:00 03/27/19 11:55 Lasix - PO 40 mg DAILY [facility] Administration Daptomycin 440 mg/ Sodium 50 mls @ 50 mls/hr 03/25/19 15:00 03/25/19 17:23 Chloride IVPB 50 mls/hr Q48H [facility] Administration Protocol Labetalol HCl 200 mg 03/18/19 22:00 03/27/19 11:55 Normodyne - PO 200 mg BID [facility] Administration Phenytoin Sodium 200 mg 03/18/19 22:00 03/27/19 11:56 Dilantin Oral Suspension - PO 200 mg BID [facility] Administration Sertraline HCl 50 mg 03/19/19 10:00 03/27/19 11:55 Zoloft - PO 50 mg DAILY [facility] Administration Impression 1. ESRD 2. chol 3. hx CVA 4. HTN 5. fever 6. epilepsy 7. bacteremia Plan - pt going for permacath - HD after permacath - check labs pre hd - abx per ID - cont wound care - HD 3:30 2 k bath, 1000 heparin bolus 500 per hr, right arm AVF
--- NOTE | 2019-03-27 14:11 | PN ---
Progress Note (short form) - Note Progress Note: pt examined no distress Vital Signs - 24 hr 03/26/19 03/26/19 03/26/19 14:43 16:55 21:00 Temperature 0.7 F L 98.6 F Pulse Rate 88 83 Respiratory 20 20 20 Rate Blood Pressure 124/64 129/59 L O2 Sat by Pulse 98 Oximetry (%) 03/26/19 03/27/19 03/27/19 23:03 06:00 09:00 Temperature 98.2 F 99.6 F Pulse Rate 87 70 Respiratory 20 18 20 Rate Blood Pressure 160/78 162/72 O2 Sat by Pulse 98 Oximetry (%) 03/27/19 10:00 Temperature 98.8 F Pulse Rate 89 Respiratory 20 Rate Blood Pressure 156/69 O2 Sat by Pulse Oximetry (%) Current Medications Generic Name Dose Route Start Last Admin Trade Name Freq PRN Reason Stop Dose Admin Acetaminophen 650 mg 03/19/19 12:37 Tylenol - PO Q4H PRN PAIN OR FEVER Aspirin 81 mg 03/19/19 10:00 03/27/19 11:20 Asa - PO Not Given DAILY [facility] Calcium Acetate 667 mg 03/18/19 17:30 03/27/19 11:21 Phoslo - PO Not Given TIDCM [facility] Epoetin Juanito 6,000 unit 03/27/19 13:21 Epogen - IVPUSH 03/27/19 13:22 ONCE ONE Furosemide 40 mg 03/19/19 10:00 03/27/19 11:55 Lasix - PO 40 mg DAILY [facility] Administration Daptomycin 440 mg/ Sodium 50 mls @ 50 mls/hr 03/25/19 15:00 03/25/19 17:23 Chloride IVPB 50 mls/hr Q48H [facility] Administration Protocol Sodium Chloride 250 mls @ 3,000 mls/hr 03/27/19 13:21 Normal Saline - IV 03/28/19 13:21 PRN PRN Hypotension during Dialysis Labetalol HCl 200 mg 03/18/19 22:00 03/27/19 11:55 Normodyne - PO 200 mg BID [facility] Administration Phenytoin Sodium 200 mg 03/18/19 22:00 03/27/19 11:56 Dilantin Oral Suspension - PO 200 mg BID [facility] Administration Sertraline HCl 50 mg 03/19/19 10:00 03/27/19 11:55 Zoloft - PO 50 mg DAILY [facility] Administration trialysis catheter S1 S2 RRR Lungs clear Abd- soft, NT no edema PLAN repeated blood cultures-- negative so far repeated again through IJ-- trialysis -- negative echo negative Vascular eval noted-- no signs of infection on right AVF permacath today dc planning after he gets permacath-- will be on iv vanco during HD per ID HD per renal Problem List - Problems (1) Fever Code(s): R50.9 - FEVER, UNSPECIFIED Qualifiers: Fever type: unspecified Qualified Code(s): R50.9 - Fever, unspecified (2) Acute metabolic encephalopathy Code(s): G93.41 - METABOLIC ENCEPHALOPATHY (3) Altered mental status, unspecified Code(s): R41.82 - ALTERED MENTAL STATUS, UNSPECIFIED Qualifiers: Altered mental status type: unspecified Qualified Code(s): R41.82 - Altered mental status, unspecified (4) CVA, old, aphasia Code(s): I69.320 - APHASIA FOLLOWING CEREBRAL INFARCTION (5) ESRD (end stage renal disease) on dialysis Code(s): N18.6 - END STAGE RENAL DISEASE; Z99.2 - DEPENDENCE ON RENAL DIALYSIS
[2019-03-27] MEDS ORDERED: LIDOCAINE HCL 1%, 10 MG/ML (20ML VIAL) ONE (14:49)
[2019-03-27] MEDS ORDERED: PROPOFOL 20 ML ONE (16:21)
[2019-03-27] MEDS ORDERED: ceFAZolin SODIUM 1 GM VIAL ONE (16:23)
[2019-03-27] MEDS ORDERED: HEPARIN NA (PORCINE) 5,000 UNITS/ML 1ML VIAL IV ONE (16:33)
[2019-03-27] MEDS ORDERED: HEPARIN NA (PORCINE) 1,000 UNITS/ML 10ML M-D VIAL SQ ONE (16:33)
[2019-03-27] MEDS ORDERED: LIDOCAINE HCL 1%, 10 MG/ML (20ML VIAL) INF ONE (16:33)
--- NOTE | 2019-03-27 16:51 | OP ---
Operative Note - Note: Operative Date: 03/27/19 Pre-Operative Diagnosis: ESRD Operation: Insertion of permacath Post-Operative Diagnosis: Same as Pre-op Surgeon: Homer Jc Anesthesia: Fractional Estimated Blood Loss (mls): 20 Operative Report Dictated: Yes
[2019-03-27] MEDS ORDERED: ACETAMINOPHEN 325 MG TABLET (FP) PO PRN (17:06)
[2019-03-27] MEDS ORDERED: EPOETIN ALFA 3,000 UNIT/1 ML ML IVPUSH ONE (18:30)
[2019-03-27 18:41] LABS: HEMATOCRIT 27.5 % (35.4-49); MCH 33.2 pg (25.7-33.7); MCHC 32.7 g/dl (32.0-35.9); MEAN CELL VOLUME 101.3 fl (80-96); MEAN PLT VOLUME 7.1 fl (7.5-11.1); PLATELET COUNT 348 K/MM3 (134-434); RBC 2.72 M/mm3 (4.00-5.60); RDW 15.3 % (11.9-15.9); WHITE BLOOD COUNT 4.3 K/mm3 (4.0-10.0)
[2019-03-27 19:03] LABS: BLOOD UREA NITROGEN 42.9 mg/dL (7-18); CALCIUM 8.2 mg/dL (8.5-10.1); POTASSIUM 5.5 mmol/L (3.5-5.1)
[2019-03-27 19:06] LABS: CREATININE 7.4 mg/dL (0.55-1.3)
--- NOTE | 2019-03-27 19:24 | OP ---
DATE OF OPERATION: 03/19/2019 PREOPERATIVE DIAGNOSIS: Infected right arteriovenous graft. POSTOPERATIVE DIAGNOSIS: Infected right arteriovenous graft. PROCEDURE: Excision of right arteriovenous graft with insertion of Shiley. SURGEON: Homer Stephen M.D. ANESTHESIA: Fractional. BLOOD LOSS: 50 mL. INDICATION: The patient is a 53-year-old that comes in with an infected right AV graft. The right AV graft was placed by another vascular surgeon at [facility] and had 2 bleeding episodes, 1 on Monday and 1 on Monday, from the right AV graft. Patient's blood cultures show MRSA as the graft is the source. It was decided that we would remove the graft and place a right neck Shiley. Patient was consented. Patient's family was consented for the procedure understanding all risks, benefits, and alternatives and patient was then brought to the operating room. DESCRIPTION OF PROCEDURE: Once in the operating room, he was laid on the operating table in a supine manner, and the area of the right arm was prepped and draped in sterile surgical manner. We then went above the proximal AV graft and injected 15 mL lidocaine 1% there. We then went ahead and made a transverse incision over the graft using a 15 blade. We then backed it down to the graft, and the graft was dissected anterior posteriorly, and we went ahead and clamped the graft. We then went ahead and ligated the graft using Metzenbaum scissors, and we then went ahead and used 0 silk and ran it and closed the proximal AV graft in a running fashion. We then went to the distal AV graft in the upper arm and went ahead and injected 10 mL of lidocaine 1% there. We then made a transverse incision using a 15 blade. Bovie cautery was used to control hemostasis. We then got down to the AV graft, dissected it anterior and posteriorly and clamped it with 2 clamps, and using heavy scissors we ligated the graft. We then went ahead and used 0 silk and we were able to close the distal portion of the graft. We then were able to excise the medial portion of the graft, since it was infected in the medial portion was excised. We made contour incision to take the graft out. Once the graft was removed and wound was well irrigated, we went ahead and used 3-0 Vicryl and the subcutaneous tissue was approximated in interrupted manner. The skin was closed with skin renee. Area was . Patient tolerated this part of procedure with no complications. Now the patient needs temporary dialysis access. The right neck and chest were prepped in a sterile surgical manner . We went ahead and using ultrasound guidance, visualized the right internal jugular vein and 10 mL of lidocaine 1% was injected over the vein. We then took our micropuncture needle, punctured the right internal jugular vein. Micropuncture inserted, micropuncture sheath was inserted, and 0.035 floppy guidewire was inserted. We then went ahead and placed our dilator over the wire into the vein. We then went ahead and placed a Shiley catheter over the wire into the vein, and our guidewire was removed. We then michelle back on each port of the catheter. There was good flow, heparinized saline was injected. 3-0 nylon was used skin, Biopatch, 4x4s, Tegaderms were placed. Patient tolerated this part of the procedure with no complication. Patient was now transferred back in stable condition, with chest x-ray to be ordered. Total blood loss 50 mL. HOMER STEPHEN DO [id number]
[2019-03-27] MEDS ORDERED: PT OWN MED DRAWER 7, Y5N ONE (23:37)
[2019-03-28] MEDS ORDERED: ASPIRIN 81 MG CHEWABLE TABLETS PO SCH (10:00)
[2019-03-28] MEDS ORDERED: FUROSEMIDE 40 MG TABLET (FP) PO SCH (10:00)
[2019-03-28] MEDS ORDERED: SERTRALINE HCL 50 MG TABLET (FP) PO SCH (10:00)
[2019-03-28] MEDS: CALCIUM ACETATE 667 MG CAPSULE (FP) PO SCH ×3 (10:02→16:56)
[2019-03-28] MEDS: LABETALOL HCL 200 MG TABLET (FP) PO SCH (10:03)
[2019-03-28] MEDS: PHENYTOIN 100 MG/4 ML U-D CUP PO SCH (10:03)
--- NOTE | 2019-03-28 12:37 | DS ---
Physical Examination Vital Signs: Vital Signs Temperature 99.1 F 03/28/19 05:44 Pulse Rate 84 03/28/19 05:44 Respiratory Rate 20 03/28/19 05:44 Blood Pressure 150/70 03/28/19 05:44 O2 Sat by Pulse Oximetry (%) 98 03/27/19 21:00 Constitutional: Yes: No Distress, Calm Cardiovascular: Yes: Regular Rate and Rhythm Respiratory: Yes: Diminished Gastrointestinal: Yes: Normal Bowel Sounds, Soft. 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 Per EMS report, he received acetaminophen prior to transport to the hospital. They did not receive any report of known symptoms. In ED temp 102, pt seen in ED, no family at bedside, pt non-verbal, NAD, no grimacing noted. Right AV fistula with dry bloody gauze, taped. pt recently here for Malfunction of AVF- s/p thrombectomy and permacath placement ER course was notable for: (1) temp 102 (2) WBC 7, Lactic 1.0 (3) UA neg, chest xray no change from 01/18 pt was found to have MRSA in blood due to infected graft Graft removed by vascular Pt afebrile Seen by ID , vascular, renal Currently stable Will need IV vanco during HD till 04/26/19 Condition: Stable - Instructions Disposition: LONG-TERM FACILITY - Home Medications Comprehensive Discharge Medication List: Ambulatory Orders Acetaminophen [Tylenol] 650 mg PO QID PRN 03/08/19 Aspirin 81 mg PO DAILY 03/08/19 Atorvastatin Calcium 80 mg PO HS 03/08/19 Calcium Acetate [Phoslo -] 667 mg PO TIDCM 03/08/19 Furosemide [Lasix] 40 mg PO DAILY 03/08/19 Heparin - 5,000 unit SQ BID 03/08/19 Labetalol HCl [Normodyne -] 200 mg PO BID 03/08/19 Phenytoin Oral Suspension [Dilantin Oral Suspension 100 MG/4 ML] 200 mg PO BID 03/08/19 Sertraline HCl [Zoloft -] 50 mg PO DAILY 03/08/19 Vancomycin/Water For Inj (Peg) [Vancomycin 1 Gram/200 ml Bag] 1 gm IV Q48H #60 piggyback 03/26/19
--- NOTE | 2019-03-28 16:20 | PN ---
Progress Note, Physician History of Present Illness: Pt seen and examined at bedside. He appears comfortable. He tolerated HD yesterday. - Current Medication List Current Medications: Active Medications Acetaminophen (Tylenol -) 650 mg PO Q4H PRN PRN Reason: PAIN OR FEVER Aspirin (Asa -) 81 mg PO DAILY [facility] Last Admin: 03/28/19 10:02 Dose: 81 mg Calcium Acetate (Phoslo -) 667 mg PO TIDCM [facility] Last Admin: 03/28/19 11:41 Dose: 667 mg Furosemide (Lasix -) 40 mg PO DAILY [facility] Last Admin: 03/28/19 10:03 Dose: 40 mg Daptomycin 440 mg/ Sodium (Chloride) 50 mls @ 50 mls/hr IVPB Q48H [facility]; Protocol Last Admin: 03/27/19 20:36 Dose: 50 mls/hr Labetalol HCl (Normodyne -) 200 mg PO BID [facility] Last Admin: 03/28/19 10:03 Dose: 200 mg Phenytoin Sodium (Dilantin Oral Suspension -) 200 mg PO BID [facility] Last Admin: 03/28/19 10:03 Dose: 200 mg Sertraline HCl (Zoloft -) 50 mg PO DAILY [facility] Last Admin: 03/28/19 10:02 Dose: 50 mg - Objective Vital Signs: Vital Signs Temperature 98 F 03/28/19 10:00 Pulse Rate 85 03/28/19 10:00 Respiratory Rate 20 03/28/19 10:00 Blood Pressure 137/62 03/28/19 10:00 O2 Sat by Pulse Oximetry (%) 98 03/28/19 09:00 Constitutional: Yes: Calm Eyes: Yes: Conjunctiva Clear HENT: Yes: Atraumatic Neck: Yes: Supple Cardiovascular: Yes: S1, S2 Respiratory: Yes: CTA Bilaterally Gastrointestinal: Yes: Soft Genitourinary: Yes: Incontinence Musculoskeletal: Yes: Muscle Weakness Edema: No Neurological: Yes: Pre-Existing Deficit Labs: CBC, BMP 03/27/19 18:00 03/27/19 18:00 INR, PTT INR 1.04 (0.83-1.09) 03/18/19 09:10 Problem List - Problems (1) Fever Code(s): R50.9 - FEVER, UNSPECIFIED Qualifiers: Fever type: unspecified Qualified Code(s): R50.9 - Fever, unspecified (2) ESRD (end stage renal disease) on dialysis Code(s): N18.6 - END STAGE RENAL DISEASE; Z99.2 - DEPENDENCE ON RENAL DIALYSIS Assessment/Plan Current Medications Generic Name Dose Route Start Last Admin Trade Name Freq PRN Reason Stop Dose Admin Acetaminophen 650 mg 03/27/19 17:06 Tylenol - PO Q4H PRN PAIN OR FEVER Aspirin 81 mg 03/28/19 10:00 03/28/19 10:02 Asa - PO 81 mg DAILY [facility] Administration Calcium Acetate 667 mg 03/27/19 17:30 03/28/19 11:41 Phoslo - PO 667 mg TIDCM [facility] Administration Furosemide 40 mg 03/28/19 10:00 03/28/19 10:03 Lasix - PO 40 mg DAILY [facility] Administration Daptomycin 440 mg/ Sodium 50 mls @ 50 mls/hr 03/29/19 15:00 03/27/19 20:36 Chloride IVPB 50 mls/hr Q48H [facility] Administration Protocol Labetalol HCl 200 mg 03/27/19 22:00 03/28/19 10:03 Normodyne - PO 200 mg BID [facility] Administration Phenytoin Sodium 200 mg 03/27/19 22:00 03/28/19 10:03 Dilantin Oral Suspension - PO 200 mg BID [facility] Administration Sertraline HCl 50 mg 03/28/19 10:00 03/28/19 10:02 Zoloft - PO 50 mg DAILY [facility] Administration Impression 1. ESRD 2. chol 3. hx CVA 4. HTN 5. fever 6. epilepsy 7. bacteremia Plan - pt tolerated HD yesterday - pt going back to [facility] today - ID to clarify abx - next HD tomorrow - cont wound care - HD 3:30 2 k bath, 1000 heparin bolus 500 per hr, right arm AVF
[2019-03-28 16:55] VITALS: BP 153/74; PULSE 77; TEMP 98.3
[2019-03-29] MEDS ORDERED: DAPTOMYCIN 440 MG in SODIUM CHLORIDE 50 ML IVPB SCH (15:00)
--- NOTE | 2019-04-02 16:58 | OP ---
DATE OF OPERATION: 03/23/2019 PREOPERATIVE DIAGNOSIS: End-stage renal disease. POSTOPERATIVE DIAGNOSIS: End-stage renal disease. PROCEDURE: Insertion of PermCath. SURGEON: Homer Stephen M.D. ANESTHESIA: Fractional. BLOOD LOSS: 20 mL. INDICATION: The patient is a 53-year-old male that has a right IJ Trialysis catheter in place for dialysis. He needs to have that converted to a PermCath. Patient was consented for the procedure understanding all risks, benefits, and alternatives and taken to the operating room. DESCRIPTION OF PROCEDURE: Once in the operating room, patient was laid on the operating table in a supine manner, and the area of the right neck and chest prepped and draped in a sterile surgical manner. We then went ahead and placed our 0.035 guidewire through the Trialysis catheter under fluoroscopy to the . We then removed the Trialysis catheter. We then exchanged our gloves for sterility purposes. We then went ahead and injected 10 mL of lidocaine 1% above and below the clavicle. Below the clavicle we inserted a number 15 blade and made a 1-cm incision. We then went ahead and tunneled our PermCath up to the puncture site. We then placed our breakaway sheath over the guidewire into the vein under fluoroscopy. Then the cannula and guidewire were removed. Catheter was placed inside the sheath. The sheath was broken away as the catheter was placed inside the vein. Neck of the catheter was then tip of the catheter was located outside the right atrium. We then took a Villa needle and michelle back on the port. There was good flow. Heparinized saline was injected and 2000 units of IV heparin were injected in each port. A 4-0 Biosyn and 2 simple stitches were placed at the puncture site. 3-0 nylon was used; the catheter was then attached to the skin. Biopatch, Steri-Strips, 4x4s and Tegaderms were placed. The patient tolerated the procedure without complications. Patient was transferred to PACU in stable condition where chest x-ray will be ordered. HOMER STEPHEN DO NP/[id number]
== END 2019-03-28 18:58 | DRG 444 ==
LOC: JER 17:26 → J5S 21:21 → J4S 03-10 18:59 → OBSVTOIN 03-11 14:08 → J8W 03-13 08:45
PROVIDERS: ADMIT Internal Medicine; ATTEND Internal Medicine
PROC: 03PY0JZ Removal of Synthetic Substitute from Upper Artery, Open Approach (ICD-10-PCS; principal; 2019-03-19)
PROC: 05HM33Z Insertion of Infusion Device into Right Internal Jugular Vein, Percutaneous Approach (ICD-10-PCS; 2019-03-19)
PROC: 05HM33Z Insertion of Infusion Device into Right Internal Jugular Vein, Percutaneous Approach (ICD-10-PCS; 2019-03-27)
PROC: 5A1D70Z Performance of Urinary Filtration, Intermittent, Less than 6 Hours Per Day (ICD-10-PCS; 2019-03-27)
DX: T82.7XXA Infection and inflammatory reaction due to other cardiac and vascular devices, implants and grafts, initial encounter (principal); Y83.9 Surgical procedure, unspecified as the cause of abnormal reaction of the patient, or of later complication, without mention of misadventure at the time of the procedure; I12.0 Hypertensive chronic kidney disease with stage 5 chronic kidney disease or end stage renal disease; N18.6 End stage renal disease; Z99.2 Dependence on renal dialysis; G40.909 Epilepsy, unspecified, not intractable, without status epilepticus; I69.354 Hemiplegia and hemiparesis following cerebral infarction affecting left non-dominant side; E78.5 Hyperlipidemia, unspecified; G93.41 Metabolic encephalopathy; R41.82 Altered mental status, unspecified; F32.9 Major depressive disorder, single episode, unspecified; A41.02 Sepsis due to Methicillin resistant Staphylococcus aureus; E87.1 Hypo-osmolality and hyponatremia; I69.320 Aphasia following cerebral infarction; E43 Unspecified severe protein-calorie malnutrition; Z68.1 Body mass index [BMI] 19.9 or less, adult
CPT/HCPCS: 36415; 71045-TC-FY; 76000-TC-FY; 76705-TC; 80048; 80053; 80185; 81003; 82550; 82565; 82803; 82977; 83605; 83735; 84100; 84484; 84520; 85025; 85027; 85610; 85651; 85730; 86140; 86704; 86706; 86708; 86803; 86850; 86900; 86901; 87040; 87086; 87186; 87340; 87804; 93005; 93010; 93306-TC; 93971; 94760; 99285-25; G0378; G0480; J0131; J0878; J0885; J1644